=== PATIENT | female | born 1950 ===

== ENCOUNTER 2018-08-22 11:21 | Inpatient (IN) | payer MEDICAID, OTHER ==
[2018-08-22] MEDS ORDERED: Sodium Chloride 0.9% 1,000 ML IV ONE (13:44)
[2018-08-22] MEDS ORDERED: Albuterol-Ipratrop 3 mg / 0.5 (3 ml) UD INH STA ×2 (13:45→17:20)
[2018-08-22] MEDS ORDERED: Sodium Chloride 0.9% 1,000 ML ONE (14:03)
[2018-08-22] MEDS ORDERED: Albuterol-Ipratrop 3 mg / 0.5 (3 ml) UD ONE ×2 (14:05→18:03)
--- NOTE | 2018-08-22 14:25 | RAD ---
Date of service: 08/22/2018 HISTORY: SOB COMPARISON: No prior. TECHNIQUE: Chest PA and lateral FINDINGS: LUNGS: Extensive bilateral heterogeneous pulmonary infiltrate, predominantly upper right and throughout left lung. Likely infectious. PLEURA: Small to moderate left pleural effusion. No right pleural effusion. No pneumothorax. CARDIOVASCULAR: No aortic atherosclerotic calcification present. Heart suboptimally evaluated due to markedly oblique positioning. Grossly normal size. OSSEOUS STRUCTURES: No significant abnormalities. VISUALIZED UPPER ABDOMEN: Normal. OTHER FINDINGS: None. IMPRESSION: Extensive bilateral pulmonary infiltrate. Likely bilateral pneumonia. Small moderate left pleural effusion.
[2018-08-22 14:32] LABS: BASO # 0.1 K/uL (0.0-0.2); BASO % 0.6 % (0.0-2.0); EOS # 0.1 K/uL (0.0-0.7); EOS % 1.1 % (0.0-4.0); LYMPH # 1.7 K/uL (1.0-4.3); LYMPH % 15.5 % (20.0-40.0); MEAN CELL VOLUME 77.9 fL (81.0-99.0); MEAN CORPUSCULAR HEMOGLOBIN 25.5 pg (27.0-31.0); MEAN CORPUSCULAR HGB CONC 32.8 g/dL (33.0-37.0); MEAN PLATELET VOLUME 9.9 fL (7.2-11.7); MONO # 0.9 K/uL (0.0-0.8); MONO % 8.3 % (0.0-10.0); NEUT # 8.2 K/uL (1.8-7.0); NEUT % 74.5 % (50.0-75.0); NRBC % 0.1 % (0.0-2.0); RBC 5.14 Mil/uL (3.80-5.20); RED CELL DISTRIBUTION WIDTH 14.9 % (11.5-14.5)
[2018-08-22 14:33] LABS: HEMOGLOBIN 13.1 g/dL (11.0-16.0)
[2018-08-22 14:37] LABS: INR 1.1; PROTHROMBIN TIME 12.4 SECONDS (9.7-12.2)
[2018-08-22 14:51] LABS: ALB/GLOB RATIO 0.9 (1.0-2.1); ALBUMIN 3.7 g/dL (3.5-5.0); AST/SGOT 27 U/L (14-36); BLOOD UREA NITROGEN 9 mg/dL (7-17); CALCIUM 9.7 mg/dl (8.6-10.4); GFR NON-AFRICAN AMERICAN > 60
[2018-08-22 14:57] LABS: B-TYPE NATRIURETIC PEPTIDE 1220 pg/mL (0-900)
[2018-08-22 15:04] LABS: ALT/SGPT 10 U/L (9-52)
[2018-08-22] MEDS ORDERED: cefTRIAXone IV 1 gm in Dextros 50 ML IV ONE (15:11)
[2018-08-22] MEDS ORDERED: Azithromycin 500 MG in Sodium Chloride 0.9% 250 ML IVPB STA (15:12)
--- NOTE | 2018-08-22 15:24 | C.PDOC ---
History Of Present Illness 68 year old female presents to the emergency department with complaints of cough, wheezing, and shortness of breath since last week. Patient has a history of asthma and states that she has never smoked cigarettes in her life. Patient was encouraged by her family to present to the ED for evaluation today. Time Seen by Provider: 08/22/18 13:39 Chief Complaint (Nursing): Shortness Of Breath History Per: Patient History/Exam Limitations: no limitations Onset/Duration Of Symptoms: Other (1 week) Current Symptoms Are (Timing): Still Present Associated Symptoms: Other (cough, wheezing, shortness of breath). denies: Fever Past Medical History Reviewed: Historical Data, Nursing Documentation, Vital Signs Vital Signs: Last Vital Signs Temp 98.6 F 08/22/18 14:08 Pulse 123 H 08/22/18 14:08 Resp 32 H 08/22/18 14:08 BP 137/83 08/22/18 14:08 Pulse Ox 100 08/22/18 14:08 - Medical History PMH: Asthma Denies: Chronic Kidney Disease Surgical History: No Surg Hx Family History: States: No Known Family Hx - Social History Hx Alcohol Use: No Hx Substance Use: No Review Of Systems Except As Marked, All Systems Reviewed And Found Negative. Constitutional: Positive for: Other (significant, unintentional weight loss). Negative for: Fever, Chills Respiratory: Positive for: Cough, Shortness of Breath, Wheezing Gastrointestinal: Positive for: Other (poor appetite). Negative for: Nausea, Vomiting, Abdominal Pain, Diarrhea Physical Exam - Physical Exam Appears: Non-toxic, No Acute Distress, Other (thin, skeletal) Skin: Normal Color, Warm, Dry Head: Atraumatic, Other (bitemporal wasting) Eye(s): bilateral: Normal Inspection, PERRL, EOMI Nose: Normal Oral Mucosa: Moist Neck: Normal, Supple Cardiovascular: Rhythm Regular, No Murmur, No JVD Respiratory: No Rales, Rhonchi (scattered rhonchi), Wheezing (left greater than right) Gastrointestinal/Abdominal: Soft, No Tenderness, No Guarding, No Rebound, Other (scaphoid abdomen) Extremity: Normal ROM, No Tenderness, Other (thin) Neurological/Psych: Oriented x3, Normal Speech, Normal Cognition ED Course And Treatment - Laboratory Results Result Diagrams: 08/22/18 14:23 08/22/18 14:23 Lab Results: PT 12.4 SECONDS (9.7-12.2) H 08/22/18 14:23 INR 1.1 08/22/18 14:23 APTT 30 SECONDS (21-34) 08/22/18 14:23 D-Dimer, Quantitative 993 ng/mlDDU (0-243) H 08/22/18 14:23 Troponin I < 0.0120 ng/mL (0.00-0.120) 08/22/18 14:23 NT-Pro-B Natriuret Pep 1220 pg/mL (0-900) H 08/22/18 14:23 Total Bilirubin 0.2 mg/dL (0.2-1.3) 08/22/18 14:23 AST 27 U/L (14-36) 08/22/18 14:23 ALT 10 U/L (9-52) 08/22/18 14:23 Alkaline Phosphatase 119 U/L (38-126) 08/22/18 14:23 Total Protein 8.0 g/dL (6.3-8.3) 08/22/18 14:23 Albumin 3.7 g/dL (3.5-5.0) 08/22/18 14:23 Globulin 4.3 gm/dL (2.2-3.9) H 08/22/18 14:23 Albumin/Globulin Ratio 0.9 (1.0-2.1) L 08/22/18 14:23 Lab Interpretation: Abnormal (trop neg. d-dimer 993 H, bnp +) ECG: Interpreted By Me, Viewed By Me ECG Interpretation: Abnormal Interpretation Of ECG: Sinus tachycardia at 127bpm, nonspecific T-wave abnormality. O2 Sat by Pulse Oximetry: 100 (RA) Pulse Ox Interpretation: Normal - Radiology CXR: Interpreted by Me CXR Interpretation: Yes: Other (+ multifocal PNA/L pleural effusion) - Other Rad CXR X-Ray: Viewed By Me, Read By Radiologist Interpretation: IMPRESSION: Extensive bilateral pulmonary infiltrate. Likely bilateral pneumonia. Small moderate left pleural effusion. - CT Scan/US CT Chest Other Rad Studies (CT/US): Read By Radiologist, Radiology Report Reviewed CT/US Interpretation: IMPRESSION: Very limited study as detailed above. There are areas of dense consolidation/atelectasis in the left lung base which has progressed since the prior study of 03/01/2016. There appear to be extensive cystic changes seen throughout the left lung and less so the right upper lobe possibly representing cystic bronchiectasis. Additionally, there additionally, there also appears to be a left-sided effusion possibly with some loculated components. Questionable mucous plugging changes or compressive effects on the proximal branches of the left upper and lower lobe of bronchi. Mild fatty hepatic infiltration. Gastric wall thickening likely in part due to incomplete distention however gastritis or other intrinsic/invasive wall lesion not excluded. Markedly distended urinary bladder; rule out urinary retention. Reevaluation Time: 17:22 Reassessment Condition: Improved - Physician Consult Information Outcome Of Conversation: 1720: d/w Dr. Mckay- Hospitalist Mission Analyst- ok to adm to Hospitalists Medical Decision Making Medical Decision Making: Plan: Chest CT EKG Chemistry Hematology CXR Albuterol 6ml INH Solu-Medrol 125mg IVP NaCl IV Fluids Zithromax 500mg IV Rocephin IV Blood Culture Influenza Serology Xanax PO pna/L pleural effusion probably NOT metastatic dz, as CT abd/pelvis show no pathology non-smoker so severe bronchiectasis and cystic disease of ? etiology, consider other insulting factors. tx as CAP as pt from home consider drainage of ?/partially L pleural effusion Disposition Doctor Will See Patient In The: Hospital Counseled Patient/Family Regarding: Studies Performed, Diagnosis - Disposition Disposition: HOSPITALIZED Disposition Time: 17:24 Condition: GOOD Forms: [facility] (Frisian) - Clinical Impression Clinical Impression: Pneumonia, Pleural effusion - Scribe Statement The provider has reviewed the documentation as recorded by the Tonoibe (Odell Najera) Provider Attestation: All medical record entries made by the Tonoibronda were at my direction and personally dictated by me. I have reviewed the chart and agree that the record accurately reflects my personal performance of the history, physical exam, medical decision making, and the department course for this patient. I have also personally directed, reviewed, and agree with the discharge instructions and disposition.
[2018-08-22] MEDS ORDERED: Iodixanol 320 MG/ML 100 ML BOTTLE IV ONE (15:32)
[2018-08-22] MEDS ORDERED: Azithromycin 500mg/250ML NS 500 MG/250 ML BAG IVPB ONE (16:46)
--- NOTE | 2018-08-22 17:04 | CT ---
Date of service: 08/22/2018 PROCEDURE: CT Chest, Abdomen and Pelvis with intravenous contrast HISTORY: Questionable lung metastatic disease,? Lung/abd primary COMPARISON: Nory in made with chest radiograph obtained earlier same day and prior CT scan of the chest dated 03/01/2016. TECHNIQUE: IV dose administered: Radiation dose: Total exam DLP = 277.25 mGy-cm. This CT exam was performed using one or more of the following dose reduction techniques: Automated exposure control, adjustment of the mA and/or kV according to patient size, and/or use of iterative reconstruction technique. FINDINGS: This study is limited by motion artifact. Study is also further limited by the lack of oral contrast material and paucity of intraperitoneal and retroperitoneal fat CT CHEST WITH CONTRAST: LUNGS: There are areas of dense consolidation/atelectasis in the left lung base which has progressed since the prior study of 03/01/2016. There appear to be extensive cystic changes seen throughout the left lung and less so the right upper lobe possibly representing cystic bronchiectasis. Additionally, there additionally, there also appears to be a left-sided effusion possibly with some loculated components. MEDIASTINUM: There appears to be left-sided mediastinal shift . Heart is enlarged.. At ascending thoracic aorta measures approximately 2.8 cm and descending thoracic aorta measures approximately pulmonary trunk measures approximately 2.4 cm. LYMPH NODES: Evaluation for hilar adenopathy is limited due to significant adjacent consolidation changes.. Trachea is patent with no large central endoluminal lesions. Questionable mucous plugging changes or compressive effects on the proximal branches of the left upper and lower lobe of bronchi PLEURA: As above. No evidence of pneumothorax BONES: Unremarkable. OTHER FINDINGS: None. CT ABDOMEN AND PELVIS: Study is quite limited due to motion artifact. Study is also further limited by the lack of oral contrast material and paucity of intraperitoneal and retroperitoneal fat LIVER: Liver exhibits relatively normal size measuring nearly 16 cm in CC dimension. Mild diffuse fatty hepatic infiltration. No obvious hepatic masses or collections. Portal vein and splenic veins are poorly delineated. GALLBLADDER AND BILE DUCTS: No obvious intraluminal gallbladder calculi far as can be seen. PANCREAS: Pancreas is poorly delineated due to the lack of oral contrast material as well as motion artifact which predominantly affects adjacent loops of bowel SPLEEN: Spleen exhibits normal size and attenuation pattern without mass collection or calcification.. ADRENALS: The adrenal glands are poorly delineated however no large adrenal masses are identified KIDNEYS AND URETERS: Kidneys demonstrate relatively symmetric nephrograms. No evidence of nephrolithiasis or hydronephrosis. VASCULATURE: No aortic atherosclerotic calcification or mural plaque present. Unremarkable. No aortic aneurysm. BOWEL: Evaluation of the bowel is limited due to significant motion artifact as well as the lack of oral contrast material. Stomach is incompletely distended with thick-walled appearance; rule out gastritis or other intrinsic/invasive wall lesion. Visualized loops of small bowel exhibit normal contour and caliber without evidence of acute mechanical bowel obstruction so far as can be seen. Stool and air seen throughout the large bowel. APPENDIX: Appendix is not positively identified. PERITONEUM: Unremarkable. No free fluid. No free air. LYMPH NODES: Unremarkable. No enlarged lymph nodes. BLADDER: Urinary bladder is markedly distended. No evidence of intraluminal urinary bladder calculi. REPRODUCTIVE: Unremarkable as visualized. BONES: No acute fracture. OTHER FINDINGS: None. IMPRESSION: Very limited study as detailed above. There are areas of dense consolidation/atelectasis in the left lung base which has progressed since the prior study of 03/01/2016. There appear to be extensive cystic changes seen throughout the left lung and less so the right upper lobe possibly representing cystic bronchiectasis. Additionally, there additionally, there also appears to be a left-sided effusion possibly with some loculated components. Questionable mucous plugging changes or compressive effects on the proximal branches of the left upper and lower lobe of bronchi Mild fatty hepatic infiltration. Gastric wall thickening likely in part due to incomplete distention however gastritis or other intrinsic/invasive wall lesion not excluded. Markedly distended urinary bladder; rule out urinary retention.
[2018-08-22] MEDS ORDERED: Piperacillin/Tazobact 3.375 gm 100 ML IVPB ONE (19:32)
[2018-08-22 19:34] LABS: ABG ALLEN TEST POS; ARTERIAL BLOOD GAS HCO3 23.4 mmol/L (21-28); ARTERIAL BLOOD GAS HEMOGLOBIN 12.4 g/dL (11.7-17.4); ARTERIAL BLOOD GAS O2 SAT 99.7 % (95-98); ARTERIAL BLOOD GAS PCO2 35 mm/Hg (35-45); ARTERIAL BLOOD GAS PH 7.41 (7.35-7.45); ARTERIAL BLOOD GAS PO2 120 mm/Hg (80-100); ARTERIAL BLOOD GAS TCO2 23.3 mmol/L (22-28)
[2018-08-22] MEDS: Piperacillin/Tazobact 3.375 GM in Sodium Chloride 100 ML IVPB SCH (19:46)
--- NOTE | 2018-08-22 20:16 | CP.PCM.HP ---
<Italia Guevara - Last Filed: 08/22/18 21:05> History of Present Illness - History of Present Illness History of Present Illness: cc: cough with weakness 68 year old F with PMH asthma presents for 1 months of worsening cough and weakness. She was admitted for pneumonia 2 years ago and has not seen a doctor since that visit. Over the last month, she has been producing more and more yellow phlegm, up to a few tablespoons each hour. She has also noticed a 30lb weight loss over the last 2 months, coordinating with loss of appetite. Denies pain, headache, palpitations, difficulty urinating, difficulty breathing, dysnpea. PMHx- Asthma PSHx- c/s x1 Fam Hx- Sister with DM and cardiac bypass surgery; Brother with MN Social hx- denies ever tobacco, alcohol, or illicit drug use Meds- denies Allergies- Nyquil and Advil PMD- None currently Full Code Present on Admission - Present on Admission Any Indicators Present on Admission: No Review of Systems - Constitutional Constitutional: Anorexia, Fatigue, Lethargy, Malaise, Weight Loss, Weakness. absent: Chills, Fever, Headache, Night Sweats - EENT Eyes: absent: Blurred Vision, Diplopia Ears: absent: Decreased Hearing, Tinnitus Nose/Mouth/Throat: absent: Nasal Discharge, Nose Pain, Dysphagia - Cardiovascular Cardiovascular: absent: Chest Pain, Dyspnea, Edema, Palpitations, Syncope - Respiratory Respiratory: Cough, Dyspnea on Exertion, Excessive Mucous Production. absent: Dyspnea, Hemoptysis, Wheezing, Chest Congestion, Change in Mucous Color - Gastrointestinal Gastrointestinal: absent: Abdominal Pain, Constipation, Diarrhea, Nausea, Vomiting - Genitourinary Genitourinary: absent: Change in Urinary Stream, Difficulty Urinating, Dysuria - Musculoskeletal Musculoskeletal: Abnormal Gait. absent: Arthralgias, Numbness, Tingling - Integumentary Integumentary: Dry Skin. absent: Skin Ulcer, Swelling - Neurological Neurological: absent: Headaches, Syncope, Tremor - Psychiatric Psychiatric: Depression. absent: Confusion - Hematologic/Lymphatic Hematologic: absent: Easy Bleeding, Easy Bruising Past Patient History - Past Medical History & Family History Past Medical History?: Yes - Past Social History Smoking Status: Never Smoked Alcohol: None Drugs: Denies - CARDIAC Hx Cardiac Disorders: No - PULMONARY Hx Asthma: Yes - NEUROLOGICAL Hx Neurological Disorder: No - HEENT Hx HEENT Problems: No - RENAL Hx Chronic Kidney Disease: No - ENDOCRINE/METABOLIC Hx Endocrine Disorders: No - HEMATOLOGICAL/ONCOLOGICAL Hx Blood Disorders: No - INTEGUMENTARY Hx Dermatological Problems: No - MUSCULOSKELETAL/RHEUMATOLOGICAL Hx Musculoskeletal Disorders: No Hx Falls: No - GASTROINTESTINAL Hx Gastrointestinal Disorders: No - GENITOURINARY/GYNECOLOGICAL Hx Genitourinary Disorders: No - PSYCHIATRIC Hx Substance Use: No - SURGICAL HISTORY Hx Surgeries: Yes Hx Section: Yes - ANESTHESIA Hx Anesthesia: Yes Hx Anesthesia Reactions: No Hx Malignant Hyperthermia: No Meds Allergies/Adverse Reactions: Allergies Allergy/AdvReac Type Severity Reaction Status Date / Time acetaminophen [From NyQuil] Allergy Verified 08/22/18 12:02 dextromethorphan HBr Allergy Verified 08/22/18 12:02 [From NyQuil] doxylamine succinate Allergy Verified 08/22/18 12:02 [From NyQuil] ibuprofen [From Advil] Allergy Verified 08/22/18 12:02 pseudoephedrine HCl Allergy Verified 08/22/18 12:02 [From NyQuil] Physical Exam - Constitutional Appears: No Acute Distress, Cachectic, Chronically Ill - Head Exam Head Exam: ATRAUMATIC, NORMOCEPHALIC - Eye Exam Eye Exam: EOMI, PERRL - ENT Exam ENT Exam: Mucous Membranes Dry - Neck Exam Neck exam: Negative for: Lymphadenopathy - Respiratory Exam Respiratory Exam: Rales, Rhonchi, NORMAL BREATHING PATTERN. absent: Wheezes Additional comments: diffuse crackles - Cardiovascular Exam Cardiovascular Exam: REGULAR RHYTHM, +S1, +S2 - GI/Abdominal Exam GI & Abdominal Exam: Normal Bowel Sounds, Soft. absent: Guarding, Tenderness - Extremities Exam Extremities exam: Positive for: normal capillary refill, pedal pulses present - Back Exam Back exam: absent: CVA tenderness (L), CVA tenderness (R) - Neurological Exam Neurological exam: Alert, CN II-XII Intact, Oriented x3, Reflexes Normal - Psychiatric Exam Psychiatric exam: Depressed - Skin Skin Exam: Dry, Intact, Normal Color Results - Vital Signs Recent Vital Signs: Last Vital Signs Temp 99.1 F 08/22/18 19:07 Pulse 130 H 08/22/18 18:23 Resp 22 08/22/18 18:23 BP 123/77 08/22/18 18:23 Pulse Ox 100 08/22/18 18:23 - Labs Result Diagrams: 08/22/18 14:23 08/22/18 14:23 Labs: Laboratory Results - last 24 hr 08/22/18 08/22/18 08/22/18 14:23 14:23 14:23 WBC 11.0 H RBC 5.14 Hgb 13.1 D Hct 40.0 MCV 77.9 L MCH 25.5 L MCHC 32.8 L RDW 14.9 H Plt Count 375 MPV 9.9 Neut % (Auto) 74.5 Lymph % (Auto) 15.5 L Preston % (Auto) 8.3 Eos % (Auto) 1.1 Baso % (Auto) 0.6 Neut # (Auto) 8.2 H Lymph # (Auto) 1.7 Preston # (Auto) 0.9 H Eos # (Auto) 0.1 Baso # (Auto) 0.1 PT 12.4 H INR 1.1 APTT 30 D-Dimer, Quantitative 993 H Puncture Site pCO2 pO2 HCO3 ABG pH ABG Total CO2 ABG O2 Saturation ABG Base Excess ABG Hemoglobin ABG Carboxyhemoglobin POC ABG HHb (Measured) ABG Methemoglobin Jose Test A-a O2 Difference Respiratory Index Hgb O2 Saturation FiO2 Sodium Potassium Chloride Carbon Dioxide Anion Gap BUN Creatinine Est GFR ( Amer) Est GFR (Non-Af Amer) Random Glucose Calcium Total Bilirubin AST ALT Alkaline Phosphatase Troponin I NT-Pro-B Natriuret Pep Total Protein Albumin Globulin Albumin/Globulin Ratio Influenza Typ A,B (EIA) Negative for flu a/b 08/22/18 08/22/18 14:23 19:25 WBC RBC Hgb Hct MCV MCH MCHC RDW Plt Count MPV Neut % (Auto) Lymph % (Auto) Preston % (Auto) Eos % (Auto) Baso % (Auto) Neut # (Auto) Lymph # (Auto) Preston # (Auto) Eos # (Auto) Baso # (Auto) PT INR APTT D-Dimer, Quantitative Puncture Site Rba pCO2 35 pO2 120 H HCO3 23.4 ABG pH 7.41 ABG Total CO2 23.3 ABG O2 Saturation 99.7 H ABG Base Excess -1.9 ABG Hemoglobin 12.4 ABG Carboxyhemoglobin 2.1 H POC ABG HHb (Measured) 0.3 ABG Methemoglobin 1.4 Jose Test Pos A-a O2 Difference 72.0 Respiratory Index 0.6 Hgb O2 Saturation 96.2 FiO2 33.0 Sodium 134 Potassium 4.5 Chloride 97 L Carbon Dioxide 29 Anion Gap 13 BUN 9 Creatinine 0.7 Est GFR ( Amer) > 60 Est GFR (Non-Af Amer) > 60 Random Glucose 114 H D Calcium 9.7 Total Bilirubin 0.2 AST 27 ALT 10 Alkaline Phosphatase 119 Troponin I < 0.0120 NT-Pro-B Natriuret Pep 1220 H Total Protein 8.0 Albumin 3.7 Globulin 4.3 H Albumin/Globulin Ratio 0.9 L Influenza Typ A,B (EIA) Assessment & Plan - Assessment and Plan (Free Text) Assessment: 68yo F with PMH asthma admitted for cystic bronchiectasis. Plan: Cystic Bronchiectasis Bilateral Pneumonia, L pleural effusion mild Leukocytosis CXR (08/22): extensive bilateral pulmonary infiltrate. likely bilateral pneumonia. small moderate left pleural effusion. CT Chest A/P (08/22): cystic bronchiectasis with L sided effusion, mild fatty hepatic infiltration, gastric wall thickening, distended urinary bladder Influenza negative Azithro and Ceftriaxone given in ED - f/u ABG - f/u Vit B12, Folate, Hgb A1c, TSH - r/o Aspergillus, TB (quantiferon) - f/u AFB x3 - f/u Blood Cx - f/u Sputum Cx - Duonebs INH rQ4 - Solumedrol 40mg IVP BID - Zosyn 3.375gm IVPB q6 (started 08/22) - Vancomycin 750mg IVPB q12 (started 08/22) - O2 via NC prn - ID consulted: Dr. Land - Pulm consulted: Dr. Bashir for possible bronchoscopy [place] 30lb weight loss in 2 months - Diet consult PPx - DVT: Heparin 5000u SC q8 - GI: Protonix 20mg po daily - Diet: HHD, MVI - PT/OT - Palliative Care consulted: [facility] Isolation d/w Dr. Erin Guevara PYG-1 - Date & Time Date: 08/22/18 Time: 19:00 <Ángel Khan - Last Filed: 08/24/18 17:35> Results - Vital Signs Recent Vital Signs: Last Vital Signs Temp 97.7 F 08/24/18 15:00 Pulse 102 H 08/24/18 15:00 Resp 18 08/24/18 15:00 BP 132/81 08/24/18 15:00 Pulse Ox 97 08/24/18 15:00 - Labs Result Diagrams: 08/24/18 07:35 08/24/18 07:35 Labs: Laboratory Results - last 24 hr 08/24/18 08/24/18 08/24/18 07:35 07:35 07:35 WBC 16.6 H RBC 4.84 Hgb 12.4 Hct 38.1 MCV 78.7 L MCH 25.7 L MCHC 32.6 L RDW 15.4 H Plt Count 363 MPV 9.9 Neut % (Auto) 86.9 H Lymph % (Auto) 8.2 L Preston % (Auto) 4.8 Eos % (Auto) 0.0 Baso % (Auto) 0.1 Neut # (Auto) 14.4 H Lymph # (Auto) 1.4 Preston # (Auto) 0.8 Eos # (Auto) 0.0 Baso # (Auto) 0.0 Neutrophils % (Manual) 89 H Lymphocytes % (Manual) 6 L Monocytes % (Manual) 5 Platelet Estimate Normal Sodium 137 Potassium 4.3 Chloride 100 Carbon Dioxide 28 Anion Gap 13 BUN 12 Creatinine 0.8 Est GFR ( Amer) > 60 Est GFR (Non-Af Amer) > 60 Random Glucose 191 H D Calcium 9.8 Total Bilirubin 0.2 AST 31 ALT < 6 L Alkaline Phosphatase 107 Total Protein 7.6 Albumin 3.7 Globulin 3.9 Albumin/Globulin Ratio 0.9 L Free T4 Hepatitis A IgM Ab Negative Hep Bs Antigen Negative Hep B Core IgM Ab Negative Hepatitis C Antibody Negative HIV 1&2 Antibody Screen 08/24/18 08/24/18 07:35 10:29 WBC RBC Hgb Hct MCV MCH MCHC RDW Plt Count MPV Neut % (Auto) Lymph % (Auto) Preston % (Auto) Eos % (Auto) Baso % (Auto) Neut # (Auto) Lymph # (Auto) Preston # (Auto) Eos # (Auto) Baso # (Auto) Neutrophils % (Manual) Lymphocytes % (Manual) Monocytes % (Manual) Platelet Estimate Sodium Potassium Chloride Carbon Dioxide Anion Gap BUN Creatinine Est GFR ( Amer) Est GFR (Non-Af Amer) Random Glucose Calcium Total Bilirubin AST ALT Alkaline Phosphatase Total Protein Albumin Globulin Albumin/Globulin Ratio Free T4 1.94 Hepatitis A IgM Ab Hep Bs Antigen Hep B Core IgM Ab Hepatitis C Antibody HIV 1&2 Antibody Screen Negative Attending/Attestation - Attestation I have personally seen and examined this patient.: Yes I have fully participated in the care of the patient.: Yes I have reviewed all pertinent clinical information: Yes Notes (Text): seen and examined by me 1.Severe bilateral bronchiectasis,productive cough and pneumonia 2.Cachexia advance directive s discussed with the patient and her son. full code. patient doesn't like to stay on the hospital as per her son Explained about the severity of her illness
[2018-08-23] MEDS: Piperacillin/Tazobact 3.375 GM in Sodium Chloride 100 ML IVPB SCH ×4 (01:17→17:50)
[2018-08-23 07:29] LABS: BASO % 0.1 % (0.0-2.0); LYMPH # 1.2 K/uL (1.0-4.3); LYMPH % 9.2 % (20.0-40.0); MEAN CELL VOLUME 77.7 fL (81.0-99.0); MEAN CORPUSCULAR HEMOGLOBIN 25.2 pg (27.0-31.0); MEAN CORPUSCULAR HGB CONC 32.4 g/dL (33.0-37.0); MEAN PLATELET VOLUME 9.5 fL (7.2-11.7); MONO # 1.1 K/uL (0.0-0.8); MONO % 8.4 % (0.0-10.0); NEUT # 10.6 K/uL (1.8-7.0); NEUT % 82.3 % (50.0-75.0); PLATELET COUNT 326 K/uL (130-400); RBC 4.37 Mil/uL (3.80-5.20); RED CELL DISTRIBUTION WIDTH 15.4 % (11.5-14.5); WHITE BLOOD COUNT 12.9 K/uL (4.8-10.8)
[2018-08-23 08:11] LABS: ALB/GLOB RATIO 0.9 (1.0-2.1); ALBUMIN 3.4 g/dL (3.5-5.0); ALT/SGPT < 6 U/L (9-52); AST/SGOT 22 U/L (14-36); BLOOD UREA NITROGEN 9 mg/dL (7-17); CALCIUM 9.5 mg/dl (8.6-10.4); GFR NON-AFRICAN AMERICAN > 60
[2018-08-23 09:00] LABS: FOLATE 18.4 ng/mL
--- NOTE | 2018-08-23 09:22 | CP.PCM.PN ---
<Lester Rooney - Last Filed: 08/23/18 17:55> Subjective - Date & Time of Evaluation Date of Evaluation: 08/23/18 Time of Evaluation: 12:00 - Subjective Subjective: Medicine progress not for Dr. Sergio Montero Wolof translation: Trudy #[id number] Pt seen and examined at bedside. Pt is resting comfortably. She reports that her cough is nonproductive, and improved since admission. She reports that she has an appetite and has been eating the food, despite not liking it. Denies fever, chills, chest pain, sob, abdominal pain, n/v/d, hematochezia, melena, hemoptysis, hematemasis, any signs of bleeding. Denies any other hospitali zations except for pneumonia 2 years ago. Reports only a history of asthma. No history of cancers in the family, and denies smoking history. Pt is ambulating in the room without problems. Objective - Vital Signs/Intake and Output Vital Signs (last 24 hours): Temp Pulse Resp BP Pulse Ox 97.8 F 99 H 20 133/79 95 08/23/18 08:01 08/23/18 08:01 08/23/18 08:01 08/23/18 08:01 08/23/18 08:01 - Medications Medications: Current Medications Albuterol/Ipratropium (Duoneb 3 Mg/0.5 Mg (3 Ml) Ud) 3 ml INH RQ4 PRN PRN Reason: Shortness of Breath Heparin Sodium (Porcine) (Heparin) 5,000 units SC Q8 TANA Piperacillin Sod/Tazobactam (Sod 3.375 gm/ Sodium Chloride) 100 mls @ 200 mls/hr IVPB Q6H TANA; Protocol Last Admin: 08/23/18 05:50 Dose: 200 mls/hr Vancomycin HCl 750 mg/ Sodium (Chloride) 250 mls @ 166.6 mls/hr IVPB Q12H TANA; Protocol Last Admin: 08/23/18 06:21 Dose: 166.6 mls/hr Methylprednisolone (Solu-Medrol) 40 mg IVP BID [facility] Multivitamins (Hexavitamin) 1 tab PO DAILY TANA Pantoprazole Sodium (Protonix Ec Tab) 20 mg PO DAILY TANA - Labs Labs: 08/23/18 07:14 08/23/18 07:14 PT 12.4 SECONDS (9.7-12.2) H 08/22/18 14:23 INR 1.1 08/22/18 14:23 APTT 30 SECONDS (21-34) 08/22/18 14:23 - Constitutional Appears: Non-toxic, No Acute Distress, Cachectic - Head Exam Head Exam: ATRAUMATIC, NORMAL INSPECTION - Eye Exam Eye Exam: EOMI, Normal appearance - ENT Exam ENT Exam: Mucous Membranes Moist - Respiratory Exam Respiratory Exam: Rales (bilaterally), Rhonchi (bilaterally), NORMAL BREATHING PATTERN. absent: Wheezes, Respiratory Distress, Stridor - Cardiovascular Exam Cardiovascular Exam: REGULAR RHYTHM, +S1, +S2. absent: Tachycardia - GI/Abdominal Exam GI & Abdominal Exam: Soft, Normal Bowel Sounds. absent: Distended, Firm, Guarding, Rigid, Tenderness, Organomegaly - Extremities Exam Extremities Exam: Normal Inspection. absent: Calf Tenderness - Back Exam Back Exam: NORMAL INSPECTION. absent: CVA tenderness (L), CVA tenderness (R) - Neurological Exam Neurological Exam: Alert, Awake - Psychiatric Exam Psychiatric exam: Normal Affect, Normal Mood - Skin Skin Exam: Dry, Normal Color, Warm Assessment and Plan - Assessment and Plan (Free Text) Assessment: 68yo F with PMH asthma admitted for cystic bronchiectasis. Plan: Cystic Bronchiectasis Bilateral Pneumonia, L pleural effusion - CXR (08/22): extensive bilateral pulmonary infiltrate. likely bilateral pneumonia. small moderate left pleural effusion. - CT Chest A/P (08/22): cystic bronchiectasis with L sided effusion, mild fatty hepatic infiltration, gastric wall thickening, distended urinary bladder - Leukocytosis increased from 11.0 to 12.9, likely due to CCS treatment. Pt afebrile during hospitalization - ABG on admission is normal - Influenza negative - r/o Aspergillus, TB (quantiferon) - f/u AFB x3 - F/u HIV, Hepatitis panel, strep pneumon, legionella, mycoplasma pneumoniae, Alpha-1 antitrypsin level, Sputum Cx - Duonebs INH rQ4 - Solumedrol 40mg IVP BID increased to Q8H - Zosyn 3.375gm IVPB q6 (started 08/22) - Vancomycin 750mg IVPB q12 (started 08/22) - O2 via NC prn - ID consulted: Dr. Land - Pulm consulted: Dr. Bashir CAT scan of the chest consistent with bilateral bronchiectasis with fibrosis Rule out HEMANT infection Fiberoptic bronchoscopy with biopsy and lavage possibly tomorrow (08/24) Continue isolation Nebulizer treatment and Mucomyst Broad-spectrum antibiotics - Blood culture x 2 negative for growth x 24 hours - airborne precautions D-dimer elevation - DDimer noted to be 993 in the ED - Pt's ABG was normal, satting well on room air, resolution of sob - F/u venous doppler studies in bilateral lower extremities. Hemoglobin change from 13.1 to 11.0 - Likely due to hemodilution as pt was dry on initial presentation and required fluids - No signs of bleeding at this time - Continue to monitor Cachectia 30lb weight loss in 2 months - Diet consult PPx - DVT: Heparin 5000u SC q8 - GI: Protonix 20mg po daily - Diet: HHD, MVI - PT/OT - Palliative Care consulted: Carol Ann Airborne Isolation Pt is full code. She reports that her sons will make decisions for her in case she is incapacitated. <Nikki Hill V - Last Filed: 08/24/18 03:31> Objective - Vital Signs/Intake and Output Vital Signs (last 24 hours): Temp Pulse Resp BP Pulse Ox 97.2 F L 125 H 20 160/95 H 100 08/23/18 23:00 08/24/18 00:56 08/23/18 23:00 08/23/18 23:00 08/23/18 23:00 Intake and Output: 08/23/18 08/24/18 18:59 06:59 Intake Total 300 Balance 300 - Medications Medications: Current Medications Acetylcysteine (Acetylcysteine 20%) 4 ml INH RQ6 TANA Last Admin: 08/24/18 01:46 Dose: Not Given Albuterol/Ipratropium (Duoneb 3 Mg/0.5 Mg (3 Ml) Ud) 3 ml INH RQ4 PRN PRN Reason: Shortness of Breath Heparin Sodium (Porcine) (Heparin) 5,000 units SC Q8 TANA Last Admin: 08/23/18 22:29 Dose: Not Given Piperacillin Sod/Tazobactam (Sod 3.375 gm/ Sodium Chloride) 100 mls @ 200 mls/hr IVPB Q6H TANA; Protocol Last Admin: 08/24/18 00:21 Dose: 200 mls/hr Vancomycin HCl 750 mg/ Sodium (Chloride) 250 mls @ 166.6 mls/hr IVPB Q12H TANA; Protocol Last Admin: 08/23/18 19:14 Dose: 166.6 mls/hr Methylprednisolone (Solu-Medrol) 40 mg IVP Q8 TANA Last Admin: 08/23/18 22:10 Dose: 40 mg Multivitamins (Hexavitamin) 1 tab PO DAILY TANA Last Admin: 08/23/18 10:58 Dose: 1 tab Pantoprazole Sodium (Protonix Ec Tab) 20 mg PO DAILY TANA Last Admin: 08/23/18 10:58 Dose: 20 mg - Labs Labs: 08/23/18 07:14 08/23/18 07:14 PT 12.4 SECONDS (9.7-12.2) H 08/22/18 14:23 INR 1.1 08/22/18 14:23 APTT 30 SECONDS (21-34) 08/22/18 14:23 Attending/Attestation - Attestation I have personally seen and examined this patient.: Yes I have fully participated in the care of the patient.: Yes I have reviewed all pertinent clinical information, including history, physical exam and plan: Yes Notes (Text): This is late computer entry for 08/23/18. patient seen, examined and case discussed with nuclear medical tech. Patient seen with her two sons at bedside. Assistance with translation by her [place] n[place]ian speaking nurse, Jyothi. Patient has had unintentional weight loss, shortness of breathe, and cough which she reports she is no longer coughing up secretions. I have explained to the patient she has severe bronchiectasis and she is recommended by pulm for bronchscopy. Patient is very anxious lady does not want to discuss testing reports we are making her anxious. Please note patient had refused prior workup in 2005 note. I did explain to her this will allow us to better treat her. Patient is on empiric iv antibiotics to cover. infectious disease on board. I did attempt code status discussion with her with her sons present given the severe bronchiectasis she has on CT chest, she does not want to entertain the discussion; but I did indicate to her it is important that we know her wishes and that if she needs time no one is pressing for answers as of this very moment, but this is something to think about in light of CT findings and weight loss. Endorsed patient to my colleague dr. fabian who resume coverage tomorrow.
[2018-08-23] MEDS: MethylPREDNISolone 40 mg Vial IVP SCH ×3 (10:48→22:10)
[2018-08-23] MEDS: Multiple Vitamins Tab PO SCH (10:58)
[2018-08-23] MEDS: Pantoprazole 20 mg EC Tab PO SCH (10:58)
[2018-08-23 11:09] LABS: BANDS 3 % (0-2); LYMPHOCYTE 7 % (20-40); MONOCYTE 7 % (0-10); NEUTROPHIL 83 % (50-75); PLATELET ESTIMATE NORMAL (NORMAL); TOTAL CELLS COUNTED 100
[2018-08-23 11:10] LABS: ANISOCYTOSIS SLIGHT; TARGET CELLS SLIGHT
--- NOTE | 2018-08-23 12:18 | CP.PCM.CON ---
History of Present Illness - History of Present Illness History of Present Illness: examined at bedside chart reviewed orders signed 68 year old female presents to the emergency department with complaints of cough, wheezing, and shortness of breath since last week. Patient has a history of asthma and states that she has never smoked cigarettes in her life. Imaging of chest shows chronic appearing bilateral infiltrates with bronchiectasis - Medical History PMH: Asthma Denies: Chronic Kidney Disease Review of Systems - Constitutional Constitutional: As Per HPI, Anorexia, Lethargy - EENT Eyes: absent: As Per HPI, Blind Spots, Blurred Vision, Change in Vision, Dec reased Night Vision, Diplopia, Discharge, Dry Eye, Exophthalmos, Floaters, Irritation, Itchy Eyes, Loss of Peripheral Vision, Pain, Photophobia, Requires Corrective Lenses, Sees Flashes, Spots in Vision, Tunnel Vision, Other Visual Disturbances, Loss of Vision, Other Ears: absent: As Per HPI, Decreased Hearing, Ear Discharge, Ear Pain, Tinnitus, Abnormal Hearing, Disequilibrium, Dizziness, Other Nose/Mouth/Throat: absent: As Per HPI, Epistaxis, Nasal Congestion, Nasal Discharge, Nasal Obstruction, Nasal Trauma, Nose Pain, Post Nasal Drip, Sinus Pain, Sinus Pressure, Bleeding Gums, Change in Voice, Dental Pain, Dry Mouth, Dysphagia, Halitosis, Hoarsness, Lip Swelling, Mouth Lesions, Mouth Pain, Odynophagia, Sore Throat, Throat Swelling, Tongue Swelling, Facial Pain, Neck Pain, Neck Mass, Other - Breasts Breasts: absent: As Per HPI, Change in Shape, Mass, Pain, Nipple Discharge, Nipple Inversion, Skin Changes, Swelling, Other - Cardiovascular Cardiovascular: As Per HPI - Respiratory Respiratory: As Per HPI, Cough, Dyspnea. absent: Hemoptysis - Gastrointestinal Gastrointestinal: absent: As Per HPI, Abdominal Pain, Belching, Bloating, Change in Bowel Habits, Change in Stool Character, Coffee Ground Emesis, Constipation, Cramping, Diarrhea, Dyspepsia, Dysphagia, Early Satiety, Excessive Flatus, Fecal Incontinence, Heartburn, Hematemesis, Hematochezia, Loose Stools, Melena, Na usea, Odynophagia, Temesmus, Vomiting, Other - Genitourinary Genitourinary: absent: As Per HPI, Change in Urinary Stream, Difficulty Urinating, Dysuria, Flank Pain, Hematuria, Pyuria, Nocturia, Urinary Incontinence, Urinary Frequency, Urinary Hesitance, Urinary Urgency, Voiding Freq/Small Amts, Freq UTI, Hx Renal/Bladder Calculi, Hx /Renal Surgery, Bladder Distension, Other - Reproductive: Female Reproductive:Female: absent: As Per HPI, Amenorrhea, Amenorrhea/ Control, Currently Menstual, Cycle <21 Days, Cycle >35 Days, Cycle Variable, Menses 1-7 Days, Menses >/= 8 Days, Menses Variable, Cycle > 4 Weeks Between, No Menses for 6 Months, Heavy Menses, Light Menses, Normal Menses, Spotting Between Cycles, S/P Hysterectomy, Menopausal, Post Menopausal, Premenarche, Abnormal Vaginal Bleeding, Dysmenorrhea, Dyspareunia, Genital Lesions, Genital Pruritis, Pelvic Pain, Prolapse Symptoms, Sexual Dysfunction, Vaginal Discharge, Vaginal Dryness, Vaginal Odor, Vaginal Pruritis, Other - Menstruation Menstruation: absent: As Per HPI, Amenorrhea, Amenorrhea/ Control, Cu rrently Menstual, Cycle <21 Days, Cycle >35 Days, Cycle Variable, Menses 1-7 Days, Menses >/= 8 Days, Menses Variable, Cycle > 4 Weeks Between, No Menses for 6 Months, Heavy Menses, Light Menses, Normal Menses, Spotting Between Cycles, S/P Hysterectomy, Menopausal, Post Menopausal, Premenarche, Abnormal Vaginal Bleeding, Dysmenorrhea, Other - Musculoskeletal Musculoskeletal: absent: As Per HPI, Abnormal Gait, Arthralgias, Atrophy, Back Pain, Deformity, Joint Swelling, Limited Range of Motion, Loss of Height, Muscle Cramps, Muscle Weakness, Myalgias, Neck Pain, Numbness, Radiating Pain into Limb, Stiffness, Tingling, Other - Integumentary Integumentary: absent: As Per HPI, Acne, Alopecia, Bleeding Lesions, Change in Hair, Change in Nails, Change in Pigmentation, Changing Lesions, Dry Skin, Erythema, Furuncle, Hirsutism, Lesions, New Lesions, Non-Healing Lesions, Photosensitivity, Pruritus, Rash, Skin Pain, Skin Ulcer, Sores, Striae, Swelling, Unusual Bruising, Wounds, Jaundice, Other - Psychiatric Psychiatric: absent: As Per HPI, Abnormal Sleep Pattern, Anhedonia, Anxiety, Auditory Hallucinations, Behavioral Changes, Change in Appetite, Change in Libido, Confusion, Depression, Difficulty Concentrating, Hallucinations, Homicidal Ideation, Hopelessness, Irritability, Memory Loss, Mood Swings, Panic Attacks, Paranoia, Suicidal Ideation, Visual Hallucinations, Tactile Hallucinations, Other - Endocrine Endocrine: absent: As Per HPI, Change in Body Appearance, Change in Libido, Cold Intolorance, Deepening of Voice, Excessive Sweating, Fatigue, Flushing, Heat Intolorance, Increase in Ring/Shoe/Hat Size, Palpitations, Polydipsia, Polyphagia, Polyuria, Other - Hematologic/Lymphatic Hematologic: absent: As Per HPI, Easy Bleeding, Easy Bruising, Lymphadenopathy, Other Past Patient History - Past Medical History & Family History Past Medical History?: Yes - Past Social History Smoking Status: Never Smoked - CARDIAC Hx Cardiac Disorders: No - PULMONARY Hx Asthma: Yes - NEUROLOGICAL Hx Neurological Disorder: No - HEENT Hx HEENT Problems: No - RENAL Hx Chronic Kidney Disease: No - ENDOCRINE/METABOLIC Hx Endocrine Disorders: No - HEMATOLOGICAL/ONCOLOGICAL Hx Blood Disorders: No - INTEGUMENTARY Hx Dermatological Problems: No - MUSCULOSKELETAL/RHEUMATOLOGICAL Hx Musculoskeletal Disorders: No Hx Falls: No - GASTROINTESTINAL Hx Gastrointestinal Disorders: No - GENITOURINARY/GYNECOLOGICAL Hx Genitourinary Disorders: No - PSYCHIATRIC Hx Substance Use: No - SURGICAL HISTORY Hx Surgeries: Yes Hx Section: Yes - ANESTHESIA Hx Anesthesia: Yes Hx Anesthesia Reactions: No Hx Malignant Hyperthermia: No Meds Allergies/Adverse Reactions: Allergies Allergy/AdvReac Type Severity Reaction Status Date / Time acetaminophen [From NyQuil] Allergy Verified 08/22/18 12:02 dextromethorphan HBr Allergy Verified 08/22/18 12:02 [From NyQuil] doxylamine succinate Allergy Verified 08/22/18 12:02 [From NyQuil] ibuprofen [From Advil] Allergy Verified 08/22/18 12:02 pseudoephedrine HCl Allergy Verified 08/22/18 12:02 [From NyQuil] - Medications Medications: Current Medications Albuterol/Ipratropium (Duoneb 3 Mg/0.5 Mg (3 Ml) Ud) 3 ml INH RQ4 PRN PRN Reason: Shortness of Breath Heparin Sodium (Porcine) (Heparin) 5,000 units SC Q8 TANA Piperacillin Sod/Tazobactam (Sod 3.375 gm/ Sodium Chloride) 100 mls @ 200 mls/hr IVPB Q6H TANA; Protocol Last Admin: 08/23/18 11:47 Dose: 200 mls/hr Vancomycin HCl 750 mg/ Sodium (Chloride) 250 mls @ 166.6 mls/hr IVPB Q12H TANA; Protocol Last Admin: 08/23/18 06:21 Dose: 166.6 mls/hr Methylprednisolone (Solu-Medrol) 40 mg IVP BID [facility] Last Admin: 08/23/18 10:48 Dose: 40 mg Multivitamins (Hexavitamin) 1 tab PO DAILY TANA Last Admin: 08/23/18 10:58 Dose: 1 tab Pantoprazole Sodium (Protonix Ec Tab) 20 mg PO DAILY TANA Last Admin: 08/23/18 10:58 Dose: 20 mg Physical Exam - Constitutional Appears: Non-toxic, No Acute Distress, Chronically Ill - Head Exam Head Exam: ATRAUMATIC, NORMAL INSPECTION, NORMOCEPHALIC - Eye Exam Eye Exam: EOMI, Normal appearance, PERRL Pupil Exam: NORMAL ACCOMODATION, PERRL - ENT Exam ENT Exam: Mucous Membranes Moist, Normal Exam - Neck Exam Neck exam: Positive for: Normal Inspection - Respiratory Exam Respiratory Exam: Decreased Breath Sounds, Clear to Auscultation Bilateral, Prolonged Expiratory Phase, Rales, Rhonchi - Cardiovascular Exam Cardiovascular Exam: REGULAR RHYTHM, +S1, +S2 - GI/Abdominal Exam GI & Abdominal Exam: Normal Bowel Sounds, Soft. absent: Tenderness - Rectal Exam Rectal Exam: Deferred - Exam Exam: NORMAL INSPECTION - Extremities Exam Extremities exam: Positive for: normal inspection - Back Exam Back exam: NORMAL INSPECTION - Neurological Exam Neurological exam: Alert, CN II-XII Intact, Normal Gait, Oriented x3, Reflexes Normal - Psychiatric Exam Psychiatric exam: Normal Affect, Normal Mood - Skin Skin Exam: Dry, Intact, Normal Color, Warm Results - Vital Signs Recent Vital Signs: Last Vital Signs Temp 97.8 F 08/23/18 08:01 Pulse 99 H 08/23/18 08:01 Resp 20 08/23/18 08:01 BP 133/79 08/23/18 08:01 Pulse Ox 95 08/23/18 08:01 - Labs Result Diagrams: 08/23/18 07:14 08/23/18 07:14 Labs: Laboratory Results - last 24 hr 08/22/18 08/22/18 08/22/18 14:23 14:23 14:23 WBC 11.0 H RBC 5.14 Hgb 13.1 D Hct 40.0 MCV 77.9 L MCH 25.5 L MCHC 32.8 L RDW 14.9 H Plt Count 375 MPV 9.9 Neut % (Auto) 74.5 Lymph % (Auto) 15.5 L [place] % (Auto) 8.3 Eos % (Auto) 1.1 Baso % (Auto) 0.6 Neut # (Auto) 8.2 H Lymph # (Auto) 1.7 [place] # (Auto) 0.9 H Eos # (Auto) 0.1 Baso # (Auto) 0.1 Neutrophils % (Manual) Band Neutrophils % Lymphocytes % (Manual) Monocytes % (Manual) Platelet Estimate Anisocytosis (manual) Target Cells PT 12.4 H INR 1.1 APTT 30 D-Dimer, Quantitative 993 H Puncture Site pCO2 pO2 HCO3 ABG pH ABG Total CO2 ABG O2 Saturation ABG Base Excess ABG Hemoglobin ABG Carboxyhemoglobin POC ABG HHb (Measured) ABG Methemoglobin Jose Test A-a O2 Difference Respiratory Index Hgb O2 Saturation FiO2 Sodium Potassium Chloride Carbon Dioxide Anion Gap BUN Creatinine Est GFR ( Amer) Est GFR (Non-Af Amer) Random Glucose Hemoglobin A1c Calcium Total Bilirubin AST ALT Alkaline Phosphatase Troponin I NT-Pro-B Natriuret Pep Total Protein Albumin Globulin Albumin/Globulin Ratio Vitamin B12 Folate TSH 3rd Generation Influenza Typ A,B (EIA) Negative for flu a/b 08/22/18 08/22/18 08/23/18 14:23 19:25 07:14 WBC RBC Hgb Hct MCV MCH MCHC RDW Plt Count MPV Neut % (Auto) Lymph % (Auto) [place] % (Auto) Eos % (Auto) Baso % (Auto) Neut # (Auto) Lymph # (Auto) [place] # (Auto) Eos # (Auto) Baso # (Auto) Neutrophils % (Manual) Band Neutrophils % Lymphocytes % (Manual) Monocytes % (Manual) Platelet Estimate Anisocytosis (manual) Target Cells PT INR APTT D-Dimer, Quantitative Puncture Site Rba pCO2 35 pO2 120 H HCO3 23.4 ABG pH 7.41 ABG Total CO2 23.3 ABG O2 Saturation 99.7 H ABG Base Excess -1.9 ABG Hemoglobin 12.4 ABG Carboxyhemoglobin 2.1 H POC ABG HHb (Measured) 0.3 ABG Methemoglobin 1.4 Jose Test Pos A-a O2 Difference 72.0 Respiratory Index 0.6 Hgb O2 Saturation 96.2 FiO2 33.0 Sodium 134 Potassium 4.5 Chloride 97 L Carbon Dioxide 29 Anion Gap 13 BUN 9 Creatinine 0.7 Est GFR ( Amer) > 60 Est GFR (Non-Af Amer) > 60 Random Glucose 114 H D Hemoglobin A1c 6.4 Calcium 9.7 Total Bilirubin 0.2 AST 27 ALT 10 Alkaline Phosphatase 119 Troponin I < 0.0120 NT-Pro-B Natriuret Pep 1220 H Total Protein 8.0 Albumin 3.7 Globulin 4.3 H Albumin/Globulin Ratio 0.9 L Vitamin B12 Folate TSH 3rd Generation Influenza Typ A,B (EIA) 08/23/18 08/23/18 07:14 07:14 WBC 12.9 H RBC 4.37 Hgb 11.0 D Hct 33.9 L MCV 77.7 L MCH 25.2 L MCHC 32.4 L RDW 15.4 H Plt Count 326 MPV 9.5 Neut % (Auto) 82.3 H Lymph % (Auto) 9.2 L [place] % (Auto) 8.4 Eos % (Auto) 0.0 Baso % (Auto) 0.1 Neut # (Auto) 10.6 H Lymph # (Auto) 1.2 [place] # (Auto) 1.1 H Eos # (Auto) 0.0 Baso # (Auto) 0.0 Neutrophils % (Manual) 83 H Band Neutrophils % 3 H Lymphocytes % (Manual) 7 L Monocytes % (Manual) 7 Platelet Estimate Normal Anisocytosis (manual) Slight Target Cells Slight PT INR APTT D-Dimer, Quantitative Puncture Site pCO2 pO2 HCO3 ABG pH ABG Total CO2 ABG O2 Saturation ABG Base Excess ABG Hemoglobin ABG Carboxyhemoglobin POC ABG HHb (Measured) ABG Methemoglobin Jose Test A-a O2 Difference Respiratory Index Hgb O2 Saturation FiO2 Sodium 137 Potassium 4.4 Chloride 102 Carbon Dioxide 30 Anion Gap 9 L BUN 9 Creatinine 0.6 L Est GFR ( Amer) > 60 Est GFR (Non-Af Amer) > 60 Random Glucose 121 H Hemoglobin A1c Calcium 9.5 Total Bilirubin 0.2 AST 22 ALT < 6 L D Alkaline Phosphatase 95 Troponin I NT-Pro-B Natriuret Pep Total Protein 7.1 Albumin 3.4 L Globulin 3.8 Albumin/Globulin Ratio 0.9 L Vitamin B12 192 L Folate 18.4 TSH 3rd Generation 0.28 L Influenza Typ A,B (EIA) Assessment & Plan (1) Bronchiectasis with (acute) exacerbation Status: Acute (2) Pleural effusion Status: Acute (3) Pneumonia Status: Acute - Assessment and Plan (Free Text) Assessment: 68 yo female with severe bronchiectasis ' r/o malignancy, fungus, mycobacterium, and or bacterial infection await cultures and serologies poor prognosis
--- NOTE | 2018-08-23 14:22 | CP.PCM.CON ---
History of Present Illness - History of Present Illness History of Present Illness: Reason for consultation: Cough and weakness 68-year-old female with history of asthma presented with 4-6-week history of productive cough, weakness, wheezing and shortness of breath. Also complaining of weight loss which she attributes to loss of appetite. Denies fever chills, denies night sweats, denies hemoptysis, denies chest pain. CAT scan of the chest consistent with bilateral bronchiectasis and fibrosis. PMHx- Asthma PSHx- c/s x1 Fam Hx- Sister with DM and cardiac bypass surgery; Brother with OR Social hx- denies ever tobacco, alcohol, or illicit drug use Meds- denies Allergies- Nyquil and Advil PMD- None currently Full Code Review of Systems - Review of Systems All systems: reviewed and no additional remarkable complaints except (Cough and weakness) Past Patient History - Past Medical History & Family History Past Medical History?: Yes - Past Social History Smoking Status: Never Smoked - CARDIAC Hx Cardiac Disorders: No - PULMONARY Hx Asthma: Yes - NEUROLOGICAL Hx Neurological Disorder: No - HEENT Hx HEENT Problems: No - RENAL Hx Chronic Kidney Disease: No - ENDOCRINE/METABOLIC Hx Endocrine Disorders: No - HEMATOLOGICAL/ONCOLOGICAL Hx Blood Disorders: No - INTEGUMENTARY Hx Dermatological Problems: No - MUSCULOSKELETAL/RHEUMATOLOGICAL Hx Musculoskeletal Disorders: No Hx Falls: No - GASTROINTESTINAL Hx Gastrointestinal Disorders: No - GENITOURINARY/GYNECOLOGICAL Hx Genitourinary Disorders: No - PSYCHIATRIC Hx Substance Use: No - SURGICAL HISTORY Hx Surgeries: Yes Hx Section: Yes - ANESTHESIA Hx Anesthesia: Yes Hx Anesthesia Reactions: No Hx Malignant Hyperthermia: No Meds Allergies/Adverse Reactions: Allergies Allergy/AdvReac Type Severity Reaction Status Date / Time acetaminophen [From NyQuil] Allergy Verified 08/22/18 12:02 dextromethorphan HBr Allergy Verified 08/22/18 12:02 [From NyQuil] doxylamine succinate Allergy Verified 08/22/18 12:02 [From NyQuil] ibuprofen [From Advil] Allergy Verified 08/22/18 12:02 pseudoephedrine HCl Allergy Verified 08/22/18 12:02 [From NyQuil] - Medications Medications: Current Medications Albuterol/Ipratropium (Duoneb 3 Mg/0.5 Mg (3 Ml) Ud) 3 ml INH RQ4 PRN PRN Reason: Shortness of Breath Heparin Sodium (Porcine) (Heparin) 5,000 units SC Q8 [facility] Piperacillin Sod/Tazobactam (Sod 3.375 gm/ Sodium Chloride) 100 mls @ 200 mls/hr IVPB Q6H [facility]; Protocol Last Admin: 08/23/18 11:47 Dose: 200 mls/hr Vancomycin HCl 750 mg/ Sodium (Chloride) 250 mls @ 166.6 mls/hr IVPB Q12H [facility]; Protocol Last Admin: 08/23/18 06:21 Dose: 166.6 mls/hr Methylprednisolone (Solu-Medrol) 40 mg IVP BID [facility] Last Admin: 08/23/18 10:48 Dose: 40 mg Multivitamins (Hexavitamin) 1 tab PO DAILY [facility] Last Admin: 08/23/18 10:58 Dose: 1 tab Pantoprazole Sodium (Protonix Ec Tab) 20 mg PO DAILY [facility] Last Admin: 08/23/18 10:58 Dose: 20 mg Physical Exam - Head Exam Head Exam: ATRAUMATIC, NORMOCEPHALIC - ENT Exam ENT Exam: Mucous Membranes Moist - Neck Exam Neck exam: Positive for: Normal Inspection - Respiratory Exam Respiratory Exam: Rales, Rhonchi, Wheezes - Cardiovascular Exam Cardiovascular Exam: REGULAR RHYTHM - GI/Abdominal Exam GI & Abdominal Exam: Normal Bowel Sounds - Extremities Exam Extremities exam: Positive for: normal inspection - Neurological Exam Neurological exam: Alert, Oriented x3 Results - Vital Signs Recent Vital Signs: Last Vital Signs Temp 97.8 F 08/23/18 08:01 Pulse 99 H 08/23/18 08:01 Resp 20 08/23/18 08:01 BP 133/79 08/23/18 08:01 Pulse Ox 95 08/23/18 08:01 - Labs Result Diagrams: 08/23/18 07:14 08/23/18 07:14 Labs: Laboratory Results - last 24 hr 08/22/18 08/22/18 08/22/18 14:23 14:23 14:23 WBC 11.0 H RBC 5.14 Hgb 13.1 D Hct 40.0 MCV 77.9 L MCH 25.5 L MCHC 32.8 L RDW 14.9 H Plt Count 375 MPV 9.9 Neut % (Auto) 74.5 Lymph % (Auto) 15.5 L [place] % (Auto) 8.3 Eos % (Auto) 1.1 Baso % (Auto) 0.6 Neut # (Auto) 8.2 H Lymph # (Auto) 1.7 [place] # (Auto) 0.9 H Eos # (Auto) 0.1 Baso # (Auto) 0.1 Neutrophils % (Manual) Band Neutrophils % Lymphocytes % (Manual) Monocytes % (Manual) Platelet Estimate Anisocytosis (manual) Target Cells PT 12.4 H INR 1.1 APTT 30 D-Dimer, Quantitative 993 H Puncture Site pCO2 pO2 HCO3 ABG pH ABG Total CO2 ABG O2 Saturation ABG Base Excess ABG Hemoglobin ABG Carboxyhemoglobin POC ABG HHb (Measured) ABG Methemoglobin Jose Test A-a O2 Difference Respiratory Index Hgb O2 Saturation FiO2 Sodium Potassium Chloride Carbon Dioxide Anion Gap BUN Creatinine Est GFR ( Amer) Est GFR (Non-Af Amer) Random Glucose Hemoglobin A1c Calcium Total Bilirubin AST ALT Alkaline Phosphatase Troponin I NT-Pro-B Natriuret Pep Total Protein Albumin Globulin Albumin/Globulin Ratio Vitamin B12 Folate TSH 3rd Generation Influenza Typ A,B (EIA) Negative for flu a/b 08/22/18 08/22/18 08/23/18 14:23 19:25 07:14 WBC RBC Hgb Hct MCV MCH MCHC RDW Plt Count MPV Neut % (Auto) Lymph % (Auto) [place] % (Auto) Eos % (Auto) Baso % (Auto) Neut # (Auto) Lymph # (Auto) [place] # (Auto) Eos # (Auto) Baso # (Auto) Neutrophils % (Manual) Band Neutrophils % Lymphocytes % (Manual) Monocytes % (Manual) Platelet Estimate Anisocytosis (manual) Target Cells PT INR APTT D-Dimer, Quantitative Puncture Site Rba pCO2 35 pO2 120 H HCO3 23.4 ABG pH 7.41 ABG Total CO2 23.3 ABG O2 Saturation 99.7 H ABG Base Excess -1.9 ABG Hemoglobin 12.4 ABG Carboxyhemoglobin 2.1 H POC ABG HHb (Measured) 0.3 ABG Methemoglobin 1.4 Jose Test Pos A-a O2 Difference 72.0 Respiratory Index 0.6 Hgb O2 Saturation 96.2 FiO2 33.0 Sodium 134 Potassium 4.5 Chloride 97 L Carbon Dioxide 29 Anion Gap 13 BUN 9 Creatinine 0.7 Est GFR ( Amer) > 60 Est GFR (Non-Af Amer) > 60 Random Glucose 114 H D Hemoglobin A1c 6.4 Calcium 9.7 Total Bilirubin 0.2 AST 27 ALT 10 Alkaline Phosphatase 119 Troponin I < 0.0120 NT-Pro-B Natriuret Pep 1220 H Total Protein 8.0 Albumin 3.7 Globulin 4.3 H Albumin/Globulin Ratio 0.9 L Vitamin B12 Folate TSH 3rd Generation Influenza Typ A,B (EIA) 08/23/18 08/23/18 07:14 07:14 WBC 12.9 H RBC 4.37 Hgb 11.0 D Hct 33.9 L MCV 77.7 L MCH 25.2 L MCHC 32.4 L RDW 15.4 H Plt Count 326 MPV 9.5 Neut % (Auto) 82.3 H Lymph % (Auto) 9.2 L [place] % (Auto) 8.4 Eos % (Auto) 0.0 Baso % (Auto) 0.1 Neut # (Auto) 10.6 H Lymph # (Auto) 1.2 [place] # (Auto) 1.1 H Eos # (Auto) 0.0 Baso # (Auto) 0.0 Neutrophils % (Manual) 83 H Band Neutrophils % 3 H Lymphocytes % (Manual) 7 L Monocytes % (Manual) 7 Platelet Estimate Normal Anisocytosis (manual) Slight Target Cells Slight PT INR APTT D-Dimer, Quantitative Puncture Site pCO2 pO2 HCO3 ABG pH ABG Total CO2 ABG O2 Saturation ABG Base Excess ABG Hemoglobin ABG Carboxyhemoglobin POC ABG HHb (Measured) ABG Methemoglobin Jose Test A-a O2 Difference Respiratory Index Hgb O2 Saturation FiO2 Sodium 137 Potassium 4.4 Chloride 102 Carbon Dioxide 30 Anion Gap 9 L BUN 9 Creatinine 0.6 L Est GFR ( Amer) > 60 Est GFR (Non-Af Amer) > 60 Random Glucose 121 H Hemoglobin A1c Calcium 9.5 Total Bilirubin 0.2 AST 22 ALT < 6 L D Alkaline Phosphatase 95 Troponin I NT-Pro-B Natriuret Pep Total Protein 7.1 Albumin 3.4 L Globulin 3.8 Albumin/Globulin Ratio 0.9 L Vitamin B12 192 L Folate 18.4 TSH 3rd Generation 0.28 L Influenza Typ A,B (EIA) Assessment & Plan (1) Bronchiectasis with (acute) exacerbation Assessment and Plan: CAT scan of the chest consistent with bilateral bronchiectasis with fibrosis Rule out HEMANT infection Fiberoptic bronchoscopy with biopsy and lavage Continue isolation Nebulizer treatment and Mucomyst Broad-spectrum antibiotics Status: Acute (2) Pleural effusion Status: Acute
[2018-08-24] MEDS: Piperacillin/Tazobact 3.375 GM in Sodium Chloride 100 ML IVPB SCH ×4 (00:21→19:47)
[2018-08-24] MEDS: Acetylcysteine 20% Inhal Soln (4ml) INH SCH (01:46)
[2018-08-24] MEDS ORDERED: Metoprolol 1 mg/ml Inj IVP ONE (03:08)
[2018-08-24] MEDS: MethylPREDNISolone 40 mg Vial IVP SCH ×2 (06:44→21:58)
--- NOTE | 2018-08-24 07:31 | CP.PCM.PN ---
<Lester Rooney - Last Filed: 08/24/18 18:58> Subjective - Date & Time of Evaluation Date of Evaluation: 08/24/18 Time of Evaluation: 11:30 - Subjective Subjective: Medicine progress not for Dr. Khan Pt seen and examined at bedside. Pt is resting comfortably, but visibly anxious. Cough continues to be nonproductive, but with congestion in the chest. She is eating, but does not like the food here. She continues to ambulate well in the room. Denies fever, chills, chest pain, sob, abdominal pain, n/v/d, hematochezia, melena, hemoptysis, hematemasis, any signs of bleeding. Objective - Vital Signs/Intake and Output Vital Signs (last 24 hours): Temp Pulse Resp BP Pulse Ox 97.2 F L 125 H 20 160/95 H 100 08/23/18 23:00 08/24/18 00:56 08/23/18 23:00 08/23/18 23:00 08/23/18 23:00 - Medications Medications: Current Medications Acetylcysteine (Acetylcysteine 20%) 4 ml INH RQ6 [facility] Last Admin: 08/24/18 01:46 Dose: Not Given Albuterol/Ipratropium (Duoneb 3 Mg/0.5 Mg (3 Ml) Ud) 3 ml INH RQ4 PRN PRN Reason: Shortness of Breath Heparin Sodium (Porcine) (Heparin) 5,000 units SC Q8 [facility] Last Admin: 08/24/18 06:44 Dose: Not Given Piperacillin Sod/Tazobactam (Sod 3.375 gm/ Sodium Chloride) 100 mls @ 200 mls/hr IVPB Q6H [facility]; Protocol Last Admin: 08/24/18 06:35 Dose: 200 mls/hr Vancomycin HCl 750 mg/ Sodium (Chloride) 250 mls @ 166.6 mls/hr IVPB Q12H [facility]; Protocol Last Admin: 08/23/18 19:14 Dose: 166.6 mls/hr Methylprednisolone (Solu-Medrol) 40 mg IVP Q8 [facility] Last Admin: 08/24/18 06:44 Dose: 40 mg Multivitamins (Hexavitamin) 1 tab PO DAILY [facility] Last Admin: 08/23/18 10:58 Dose: 1 tab Pantoprazole Sodium (Protonix Ec Tab) 20 mg PO DAILY [facility] Last Admin: 08/23/18 10:58 Dose: 20 mg - Labs Labs: 08/23/18 07:14 08/23/18 07:14 PT 12.4 SECONDS (9.7-12.2) H 08/22/18 14:23 INR 1.1 08/22/18 14:23 APTT 30 SECONDS (21-34) 08/22/18 14:23 - Additional Findings Additional findings: - Constitutional Appears: Non-toxic, No Acute Distress, Cachectic - Head Exam Head Exam: ATRAUMATIC, NORMAL INSPECTION - Eye Exam Eye Exam: EOMI, Normal appearance - ENT Exam ENT Exam: Mucous Membranes Moist - Respiratory Exam Respiratory Exam: Rales (bilaterally), Rhonchi (bilaterally), NORMAL BREATHING PATTERN. absent: Wheezes, Respiratory Distress, Stridor - Cardiovascular Exam Cardiovascular Exam: REGULAR RHYTHM, +S1, +S2. absent: Tachycardia - GI/Abdominal Exam GI & Abdominal Exam: Soft, Normal Bowel Sounds. absent: Distended, Firm, Guarding, Rigid, Tenderness, Organomegaly - Extremities Exam Extremities Exam: Normal Inspection. absent: Calf Tenderness - Back Exam Back Exam: NORMAL INSPECTION. absent: CVA tenderness (L), CVA tenderness (R) - Neurological Exam Neurological Exam: Alert, Awake - Psychiatric Exam Psychiatric exam: Normal Affect, Normal Mood - Skin Skin Exam: Dry, Normal Color, Warm Assessment and Plan - Assessment and Plan (Free Text) Assessment: 68yo F with PMH asthma admitted for cystic bronchiectasis, history of weight loss. Plan: Cystic Bronchiectasis Bilateral Pneumonia, L pleural effusion - CXR (08/22): extensive bilateral pulmonary infiltrate. likely bilateral pneumonia. small moderate left pleural effusion. - CT Chest A/P (08/22): cystic bronchiectasis with L sided effusion, mild fatty hepatic infiltration, gastric wall thickening, distended urinary bladder - Leukocytosis increased from 12.9 to 16.6, likely due to CCS treatment. Pt afebrile during hospitalization. - ABG on admission is normal - Influenza negative - HIV negative, Hepatitis panel negative - Duonebs INH rQ4 - Solumedrol 40mg IVP BID increased to Q8H - Zosyn 3.375gm IVPB q6 (started 08/22) - Vancomycin 750mg IVPB q12 (started 08/22) - O2 via NC prn - ID consulted: Dr. Land - Pulm consulted: Dr. Bashir CAT scan of the chest consistent with bilateral bronchiectasis with fibrosis Rule out HEMANT infection Continue isolation Nebulizer treatment and Mucomyst Broad-spectrum antibiotics - Blood culture x 2 negative for growth x 48 hours - Airborne precautions - Pt did not want bronchoscopy today. Multiple attempts made to explain the severity of her condition and high likelihood to progress to worsening shortness of breath and potentially respiratory distress. I explained to her the risks of not having an accurate diagnosis without bronchoscopy, but she did not want to talk with my attending or I, and continued to refuse the procedure. - r/o Aspergillus, TB (quantiferon) - f/u AFB x3 - F/u strep pneumon, legionella, mycoplasma pneumoniae, Alpha-1 antitrypsin level, Sputum Cx D-dimer elevation - DDimer noted to be 993 in the ED - Pt's ABG was normal, satting well on room air, resolution of sob - Pt refused venous doppler studies in bilateral lower extremities. I informed her that the ddimer elevation may mean that she has a blood clot, and there is a possibility of it traveling to her lungs and could potentially kill her. Pt relays understanding, but adamantly refuses at this time. She states that she may change her mind. Cachectia 30lb weight loss in 2 months - Diet consult - TSH is 0.28, FT4 is 1.94 Subclinical hyperthyroidism, no indication for treatment at this time. Outpatient management PPx - DVT: Heparin 5000u SC q8 - GI: Protonix 20mg po daily - Diet: HHD, MVI - PT/OT - Palliative Care consulted: Carol Ann. See note. Airborne Isolation Pt is full code. She reports that her sons will make decisions for her in case she is incapacitated. <Ángel Khan - Last Filed: 08/27/18 17:12> Objective - Vital Signs/Intake and Output Vital Signs (last 24 hours): Temp Pulse Resp BP Pulse Ox 97.6 F 105 H 20 124/76 100 08/25/18 07:10 08/25/18 08:42 08/25/18 07:10 08/25/18 07:10 08/25/18 07:10 - Medications Medications: Current Medications Acetylcysteine (Acetylcysteine 20%) 4 ml INH RQ6 [facility] Last Admin: 08/25/18 01:27 Dose: 4 ml Albuterol/Ipratropium (Duoneb 3 Mg/0.5 Mg (3 Ml) Ud) 3 ml INH RQ4 PRN PRN Reason: Shortness of Breath Last Admin: 08/25/18 01:27 Dose: 3 ml Heparin Sodium (Porcine) (Heparin) 5,000 units SC Q8 [facility] Last Admin: 08/25/18 05:56 Dose: Not Given Piperacillin Sod/Tazobactam (Sod 3.375 gm/ Sodium Chloride) 100 mls @ 200 mls/hr IVPB Q6H [facility]; Protocol Last Admin: 08/25/18 05:57 Dose: 200 mls/hr Vancomycin HCl 1 gm/ Sodium (Chloride) 250 mls @ 166.7 mls/hr IVPB Q12H [facility]; Protocol Methylprednisolone (Solu-Medrol) 40 mg IVP Q12 [facility] Last Admin: 08/24/18 21:58 Dose: 40 mg Multivitamins (Hexavitamin) 1 tab PO DAILY [facility] Last Admin: 08/24/18 09:11 Dose: Not Given Pantoprazole Sodium (Protonix Ec Tab) 20 mg PO DAILY [facility] Last Admin: 08/24/18 09:11 Dose: Not Given - Labs Labs: 08/25/18 07:25 08/25/18 07:25 PT 12.4 SECONDS (9.7-12.2) H 08/22/18 14:23 INR 1.1 08/22/18 14:23 APTT 30 SECONDS (21-34) 08/22/18 14:23 Attending/Attestation - Attestation I have personally seen and examined this patient.: Yes I have fully participated in the care of the patient.: Yes I have reviewed all pertinent clinical information, including history, physical exam and plan: Yes Notes (Text): seen and examined. Patient has mild sob,talking in full sentence. Refuses bronchoscopy. she was explained about her lung finding and the importance of diagnostic work up for her to improve her sickness. Patient believes that she will be ok without any procedure. She refuses venous Doppler,HEMANT study ordered.
[2018-08-24 08:05] LABS: BASO % 0.1 % (0.0-2.0); HEMOGLOBIN 12.4 g/dL (11.0-16.0); LYMPH # 1.4 K/uL (1.0-4.3); LYMPH % 8.2 % (20.0-40.0); MEAN CELL VOLUME 78.7 fL (81.0-99.0); MEAN CORPUSCULAR HEMOGLOBIN 25.7 pg (27.0-31.0); MEAN CORPUSCULAR HGB CONC 32.6 g/dL (33.0-37.0); MEAN PLATELET VOLUME 9.9 fL (7.2-11.7); MONO # 0.8 K/uL (0.0-0.8); MONO % 4.8 % (0.0-10.0); NEUT # 14.4 K/uL (1.8-7.0); NEUT % 86.9 % (50.0-75.0); PLATELET COUNT 363 K/uL (130-400); RBC 4.84 Mil/uL (3.80-5.20); RED CELL DISTRIBUTION WIDTH 15.4 % (11.5-14.5); WHITE BLOOD COUNT 16.6 K/uL (4.8-10.8)
[2018-08-24 08:14] LABS: ALB/GLOB RATIO 0.9 (1.0-2.1); ALBUMIN 3.7 g/dL (3.5-5.0); ALT/SGPT < 6 U/L (9-52); AST/SGOT 31 U/L (14-36); BLOOD UREA NITROGEN 12 mg/dL (7-17); CALCIUM 9.8 mg/dl (8.6-10.4); GFR NON-AFRICAN AMERICAN > 60
[2018-08-24 08:54] LABS: HEPATITIS B SURFACE AG Negative (NEGATIVE)
[2018-08-24 08:56] LABS: LYMPHOCYTE 6 % (20-40); MONOCYTE 5 % (0-10); NEUTROPHIL 89 % (50-75); TOTAL CELLS COUNTED 100
[2018-08-24 08:57] LABS: PLATELET ESTIMATE NORMAL (NORMAL)
[2018-08-24 09:00] LABS: HEPATITIS A IGM NEGATIVE (NEGATIVE); HEPATITIS B CORE AB NEGATIVE (NEGATIVE)
[2018-08-24] MEDS: Multiple Vitamins Tab PO SCH (09:11)
[2018-08-24] MEDS: Pantoprazole 20 mg EC Tab PO SCH (09:11)
[2018-08-24 09:12] LABS: HEPATITIS C ANTIBODY NEGATIVE (NEGATIVE)
--- NOTE | 2018-08-24 15:09 | CP.PCM.PN ---
Subjective - Date & Time of Evaluation Date of Evaluation: 08/24/18 Time of Evaluation: 13:00 - Subjective Subjective: Patient seen and examined at bedside. 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 Physical Exam: General: Awake, alert and oriented; not in any distress Cardio: Regular rhythm and rate; +S1 +S2; no murmur Pulm: Rales, rhonchi, wheezes Abd: Soft, non-distended CXR 08/22: Extensive b/l pulmonary infiltrate. Likely b/l pneumonia. Small moderate left pleural effusion. Chest CT 08/22: Consistent with b/l bronchiectasis and fibrosis. Assessment and Plan:? Bronchiectasis with (acute) exacerbation - R/O HEMANT infection - Fiberoptic bronchoscopy w/ biopsy and lavage which patient refuses and had an extensive discussion - Continue isolation - Nebulizer treatment & Mucomyst - Broad-spectrum antibiotics Pleural Effusion Objective - Vital Signs/Intake and Output Vital Signs (last 24 hours): Temp Pulse Resp BP Pulse Ox 97.4 F L 105 H 20 132/87 98 08/24/18 07:17 08/24/18 08:00 08/24/18 07:17 08/24/18 07:17 08/24/18 07:17 - Medications Medications: Current Medications Acetylcysteine (Acetylcysteine 20%) 4 ml INH RQ6 [facility] Last Admin: 08/24/18 01:46 Dose: Not Given Albuterol/Ipratropium (Duoneb 3 Mg/0.5 Mg (3 Ml) Ud) 3 ml INH RQ4 PRN PRN Reason: Shortness of Breath Heparin Sodium (Porcine) (Heparin) 5,000 units SC Q8 [facility] Last Admin: 08/24/18 14:00 Dose: Not Given Piperacillin Sod/Tazobactam (Sod 3.375 gm/ Sodium Chloride) 100 mls @ 200 mls/hr IVPB Q6H [facility]; Protocol Last Admin: 08/24/18 14:44 Dose: 200 mls/hr Vancomycin HCl 750 mg/ Sodium (Chloride) 250 mls @ 166.6 mls/hr IVPB Q12H [facility]; Protocol Last Admin: 08/24/18 08:16 Dose: 166.6 mls/hr Methylprednisolone (Solu-Medrol) 40 mg IVP Q12 [facility] Multivitamins (Hexavitamin) 1 tab PO DAILY [facility] Last Admin: 08/24/18 09:11 Dose: Not Given Pantoprazole Sodium (Protonix Ec Tab) 20 mg PO DAILY [facility] Last Admin: 08/24/18 09:11 Dose: Not Given - Labs Labs: 08/24/18 07:35 08/24/18 07:35 PT 12.4 SECONDS (9.7-12.2) H 08/22/18 14:23 INR 1.1 08/22/18 14:23 APTT 30 SECONDS (21-34) 08/22/18 14:23 Assessment and Plan (1) Bronchiectasis with (acute) exacerbation Status: Acute (2) Pleural effusion Status: Acute
--- NOTE | 2018-08-24 16:23 | CP.PCM.CON ---
History of Present Illness - History of Present Illness History of Present Illness: Palliative consult requested by Doctor Raj for goals of care discussion Patient is a 68 yo female admitted from home with cough and productive cough X 4 - 6 weeks. patient denied chills, fever or blood in the sputum. Shweta ent was encouraged by her family to come to ED for diagnosing. CXR was suggestive of extensive, B/L infiltrate and started on Zosyn, Vanco and Solu Medrol. CT was significant for fibrosis and B/L bronchiectasis. Pulmonary consult called. Doctor cMkay suggested bronchoscopy with biopsy but patient r efused it. Patient is also suspicious for HEMANT infection and was placed on isolation. palliative care was asked to assist patient in decision making process. PMH: asthma Soc. Hx" lives at home, has two sons, unemployed, used to work at [employer] years ago, never smoked Fam. Hx: denies known Hx Review of Systems - Constitutional Constitutional: Fatigue - EENT Eyes: absent: As Per HPI, Blind Spots, Blurred Vision, Change in Vision, Decreased Night Vision, Diplopia, Discharge, Dry Eye, Exophthalmos, Floaters, Irritation, Itchy Eyes, Loss of Peripheral Vision, Pain, Photophobia, Requires Corrective Lenses, Sees Flashes, Spots in Vision, Tunnel Vision, Other Visual Disturbances, Loss of Vision, Other Ears: absent: As Per HPI, Decreased Hearing, Ear Discharge, Ear Pain, Tinnitus, Abnormal Hearing, Disequilibrium, Dizziness, Other Nose/Mouth/Throat: absent: As Per HPI, Epistaxis, Nasal Congestion, Nasal Discharge, Nasal Obstruction, Nasal Trauma, Nose Pain, Post Nasal Drip, Sinus Pain, Sinus Pressure, Bleeding Gums, Change in Voice, Dental Pain, Dry Mouth, Dysphagia, Halitosis, Hoarsness, Lip Swelling, Mouth Lesions, Mouth Pain, Odynophagia, Sore Throat, Throat Swelling, Tongue Swelling, Facial Pain, Neck Pain, Neck Mass, Other - Breasts Breasts: absent: As Per HPI, Change in Shape, Mass, Pain, Nipple Discharge, Nipple Inversion, Skin Changes, Swelling, Other - Cardiovascular Cardiovascular: absent: As Per HPI, Acrocyanosis, Chest Pain, Chest Pain at Rest, Chest Pain with Activity, Claudication, Diaphoresis, Dyspnea, Dyspnea on Exertion, Edema, Irregular Heart Rhythm, Pain Radiating to Arm/Neck/Jaw, Leg Edema, Leg Ulcers, Lightheadedness, Orthopnea, Palpitations, Paroxysmal Nocturnal Dyspnea, Pedal Edema, Radiating Pain, Rapid Heart Rate, Slow Heart Rate, Syncope, Other - Respiratory Respiratory: Cough, Dyspnea, Chest Congestion - Gastrointestinal Gastrointestinal: absent: As Per HPI, Abdominal Pain, Belching, Bloating, Change in Bowel Habits, Change in Stool Character, Coffee Ground Emesis, Constipation, Cramping, Diarrhea, Dyspepsia, Dysphagia, Early Satiety, Excessive Flatus, Fecal Incontinence, Heartburn, Hematemesis, Hematochezia, Loose Stools, Melena, Nausea, Odynophagia, Temesmus, Vomiting, Other - Genitourinary Genitourinary: absent: As Per HPI, Change in Urinary Stream, Difficulty Urinating, Dysuria, Flank Pain, Hematuria, Pyuria, Nocturia, Urinary Incontinence, Urinary Frequency, Urinary Hesitance, Urinary Urgency, Voiding Freq/Small Amts, Freq UTI, Hx Renal/Bladder Calculi, Hx /Renal Surgery, B ladder Distension, Other - Reproductive: Female Reproductive:Female: Post Menopausal - Menstruation Menstruation: Post Menopausal - Musculoskeletal Musculoskeletal: absent: As Per HPI, Abnormal Gait, Arthralgias, Atrophy, Back Pain, Deformity, Joint Swelling, Limited Range of Motion, Loss of Height, Muscle Cramps, Muscle Weakness, Myalgias, Neck Pain, Numbness, Radiating Pain into Limb, Stiffness, Tingling, Other - Integumentary Integumentary: Dry Skin - Neurological Neurological: absent: As Per HPI, Abnormal Gait, Abnormal Hearing, Abnormal Movements, Abnormal Speech, Behavioral Changes, Burning Sensations, Confusion, Convulsions, Disequilibrium, Dizziness, Numbness, Focal Weakness, Frequent Fal ls, Headaches, Lack of Coordination, Loss of Vision, Memory Loss, Paresthesias, Radicular Pain, Restless Legs, Sensory Deficit, Syncope, Tingling, Tremor, Vertigo, Weakness, Other Visual Disturbances, Other - Psychiatric Psychiatric: Anxiety - Endocrine Endocrine: absent: As Per HPI, Change in Body Appearance, Change in Libido, Cold Intolorance, Deepening of Voice, Excessive Sweating, Fatigue, Flushing, Heat Intolorance, Increase in Ring/Shoe/Hat Size, Palpitations, Polydipsia, Polyphagia, Polyuria, Other - Hematologic/Lymphatic Hematologic: absent: As Per HPI, Easy Bleeding, Easy Bruising, Lymphadenopathy, Other Past Patient History - Past Medical History & Family History Past Medical History?: Yes - Past Social History Smoking Status: Never Smoked - CARDIAC Hx Cardiac Disorders: No - PULMONARY Hx Asthma: Yes - NEUROLOGICAL Hx Neurological Disorder: No - HEENT Hx HEENT Problems: No - RENAL Hx Chronic Kidney Disease: No - ENDOCRINE/METABOLIC Hx Endocrine Disorders: No - HEMATOLOGICAL/ONCOLOGICAL Hx Blood Disorders: No - INTEGUMENTARY Hx Dermatological Problems: No - MUSCULOSKELETAL/RHEUMATOLOGICAL Hx Musculoskeletal Disorders: No Hx Falls: No - GASTROINTESTINAL Hx Gastrointestinal Disorders: No - GENITOURINARY/GYNECOLOGICAL Hx Genitourinary Disorders: No - PSYCHIATRIC Hx Substance Use: No - SURGICAL HISTORY Hx Surgeries: Yes Hx Section: Yes - ANESTHESIA Hx Anesthesia: Yes Hx Anesthesia Reactions: No Hx Malignant Hyperthermia: No Meds Allergies/Adverse Reactions: Allergies Allergy/AdvReac Type Severity Reaction Status Date / Time acetaminophen [From NyQuil] Allergy Verified 08/22/18 12:02 dextromethorphan HBr Allergy Verified 08/22/18 12:02 [From NyQuil] doxylamine succinate Allergy Verified 08/22/18 12:02 [From NyQuil] ibuprofen [From Advil] Allergy Verified 08/22/18 12:02 pseudoephedrine HCl Allergy Verified 08/22/18 12:02 [From NyQuil] - Medications Medications: Current Medications Acetylcysteine (Acetylcysteine 20%) 4 ml INH RQ6 [facility]NA Last Admin: 08/24/18 01:46 Dose: Not Given Albuterol/Ipratropium (Duoneb 3 Mg/0.5 Mg (3 Ml) Ud) 3 ml INH RQ4 PRN PRN Reason: Shortness of Breath Heparin Sodium (Porcine) (Heparin) 5,000 units SC Q8 [facility]NA Last Admin: 08/24/18 14:00 Dose: Not Given Piperacillin Sod/Tazobactam (Sod 3.375 gm/ Sodium Chloride) 100 mls @ 200 mls/hr IVPB Q6H [facility]; Protocol Last Admin: 08/24/18 14:44 Dose: 200 mls/hr Vancomycin HCl 750 mg/ Sodium (Chloride) 250 mls @ 166.6 mls/hr IVPB Q12H [facility]; Protocol Last Admin: 08/24/18 08:16 Dose: 166.6 mls/hr Methylprednisolone (Solu-Medrol) 40 mg IVP Q12 [facility] Multivitamins (Hexavitamin) 1 tab PO DAILY [facility] Last Admin: 08/24/18 09:11 Dose: Not Given Pantoprazole Sodium (Protonix Ec Tab) 20 mg PO DAILY [facility] Last Admin: 08/24/18 09:11 Dose: Not Given Physical Exam - Constitutional Appears: Chronically Ill - Head Exam Head Exam: ATRAUMATIC, NORMAL INSPECTION, NORMOCEPHALIC - Eye Exam Eye Exam: EOMI, Normal appearance, PERRL Pupil Exam: NORMAL ACCOMODATION, PERRL - ENT Exam ENT Exam: Mucous Membranes Moist, Normal Exam - Neck Exam Neck exam: Positive for: Normal Inspection - Respiratory Exam Respiratory Exam: Chest Wall Tenderness, Decreased Breath Sounds, Prolonged Expiratory Phase, Rhonchi, NORMAL BREATHING PATTERN - Cardiovascular Exam Cardiovascular Exam: Tachycardia, REGULAR RHYTHM, +S1, +S2 - GI/Abdominal Exam GI & Abdominal Exam: Normal Bowel Sounds, Soft - Rectal Exam Rectal Exam: Deferred - Exam Exam: NORMAL INSPECTION - Extremities Exam Extremities exam: Positive for: normal inspection - Back Exam Back exam: NORMAL INSPECTION - Neurological Exam Neurological exam: Alert, Oriented x3 - Psychiatric Exam Psychiatric exam: Anxious - Skin Skin Exam: Dry, Intact, Normal Color, Warm Results - Vital Signs Recent Vital Signs: Last Vital Signs Temp 97.7 F 08/24/18 15:00 Pulse 102 H 08/24/18 15:00 Resp 18 08/24/18 15:00 BP 132/81 08/24/18 15:00 Pulse Ox 97 08/24/18 15:00 - Labs Result Diagrams: 08/24/18 07:35 08/24/18 07:35 Labs: Laboratory Results - last 24 hr 08/24/18 08/24/18 08/24/18 07:35 07:35 07:35 WBC 16.6 H RBC 4.84 Hgb 12.4 Hct 38.1 MCV 78.7 L MCH 25.7 L MCHC 32.6 L RDW 15.4 H Plt Count 363 MPV 9.9 Neut % (Auto) 86.9 H Lymph % (Auto) 8.2 L Dixie % (Auto) 4.8 Eos % (Auto) 0.0 Baso % (Auto) 0.1 Neut # (Auto) 14.4 H Lymph # (Auto) 1.4 Dixie # (Auto) 0.8 Eos # (Auto) 0.0 Baso # (Auto) 0.0 Neutrophils % (Manual) 89 H Lymphocytes % (Manual) 6 L Monocytes % (Manual) 5 Platelet Estimate Normal Sodium 137 Potassium 4.3 Chloride 100 Carbon Dioxide 28 Anion Gap 13 BUN 12 Creatinine 0.8 Est GFR ( Amer) > 60 Est GFR (Non-Af Amer) > 60 Random Glucose 191 H D Calcium 9.8 Total Bilirubin 0.2 AST 31 ALT < 6 L Alkaline Phosphatase 107 Total Protein 7.6 Albumin 3.7 Globulin 3.9 Albumin/Globulin Ratio 0.9 L Free T4 Hepatitis A IgM Ab Negative Hep Bs Antigen Negative Hep B Core IgM Ab Negative Hepatitis C Antibody Negative HIV 1&2 Antibody Screen 08/24/18 08/24/18 07:35 10:29 WBC RBC Hgb Hct MCV MCH MCHC RDW Plt Count MPV Neut % (Auto) Lymph % (Auto) Dixie % (Auto) Eos % (Auto) Baso % (Auto) Neut # (Auto) Lymph # (Auto) Dixie # (Auto) Eos # (Auto) Baso # (Auto) Neutrophils % (Manual) Lymphocytes % (Manual) Monocytes % (Manual) Platelet Estimate Sodium Potassium Chloride Carbon Dioxide Anion Gap BUN Creatinine Est GFR ( Amer) Est GFR (Non-Af Amer) Random Glucose Calcium Total Bilirubin AST ALT Alkaline Phosphatase Total Protein Albumin Globulin Albumin/Globulin Ratio Free T4 1.94 Hepatitis A IgM Ab Hep Bs Antigen Hep B Core IgM Ab Hepatitis C Antibody HIV 1&2 Antibody Screen Negative Assessment & Plan - Assessment and Plan (Free Text) Assessment: Palliative consult Full Code, there is no Advance directive on chart, PPS 70% I reviewed all Medical records, diagnostic studies, examined and interviewed patient in the bed Patient is alert, oriented, Indian speaking only, with affect that is anxious. Official translation used. Skin is dry, intact, no wounds/edema noted. Breath sounds are diminished and congested, productive cough noted, sputum yellow, O2Sat 98 % RA Abdomen flat, non distended, active bowel sounds, tolerates diet, denies constipation. Extremities mobile, no edema, pedal and radial pulses present. BP 132/87, HR 90-131 WBC 16.6, Hb 12.4 Goals of care discussed with patient. Prior my visit, patient had discussion about bronchoscopy with Pulmonary team and refused intervention. I elicited patient;s understanding of her condition and her concerns. Patient admitted being very anxious as she " sees so many Doctors" and feels pressured by all those questions. I specifically asked her about bronchoscopy and her refusal of such interventions. Patient admitted to fear of procedure. I went into details about the purpose of the procedure and its importance in guiding further care. I was very clear about that her condition may get worse due to lack of needed diagnost ic studies, but she had right to do so as long as she is aware of consequences. Patient cried and avoided eye contacts . I discussed signs and symptoms of anxiety and offered anianxiety meds to be or dered but patient refused. Patient asked for extra time to think it over and to talk to her children. We agreed to meet tomorrow again. I did not discuss Code status as I felt patient was too stressed out for this kind of discussion. Impression * Pulmonary fibrosis * Pneumonia * Productive cough * Anxiety due to changes in health condition and fear of unknown * Denial * Patient needs a lot of emotional support during decision making process Suggestion * Continue IV antibiotics * Continue O2 supplement * Neb Tx * Monitor for worsening of anxiety, use reassurance and distraction to make her feel better * Allow time for patient to absorb all information regarding her health * Reassure patient of care provided I will meet with patient tomorrow again and re visit goals of care discussion. Advance care planing 40 min
--- NOTE | 2018-08-24 18:17 | CP.PCM.PN ---
Subjective - Date & Time of Evaluation Date of Evaluation: 08/24/18 Time of Evaluation: 09:00 - Subjective Subjective: refusing bronchoscopy afeb weak Objective - Vital Signs/Intake and Output Vital Signs (last 24 hours): Temp Pulse Resp BP Pulse Ox 97.7 F 102 H 18 132/81 97 08/24/18 15:00 08/24/18 15:00 08/24/18 15:00 08/24/18 15:00 08/24/18 15:00 - Medications Medications: Current Medications Acetylcysteine (Acetylcysteine 20%) 4 ml INH RQ6 [facility]NA Last Admin: 08/24/18 01:46 Dose: Not Given Albuterol/Ipratropium (Duoneb 3 Mg/0.5 Mg (3 Ml) Ud) 3 ml INH RQ4 PRN PRN Reason: Shortness of Breath Heparin Sodium (Porcine) (Heparin) 5,000 units SC Q8 [facility] Last Admin: 08/24/18 14:00 Dose: Not Given Piperacillin Sod/Tazobactam (Sod 3.375 gm/ Sodium Chloride) 100 mls @ 200 mls/hr IVPB Q6H [facility]; Protocol Last Admin: 08/24/18 14:44 Dose: 200 mls/hr Vancomycin HCl 750 mg/ Sodium (Chloride) 250 mls @ 166.6 mls/hr IVPB Q12H [facility]; Protocol Last Admin: 08/24/18 08:16 Dose: 166.6 mls/hr Methylprednisolone (Solu-Medrol) 40 mg IVP Q12 [facility] Multivitamins (Hexavitamin) 1 tab PO DAILY [facility] Last Admin: 08/24/18 09:11 Dose: Not Given Pantoprazole Sodium (Protonix Ec Tab) 20 mg PO DAILY [facility] Last Admin: 08/24/18 09:11 Dose: Not Given - Labs Labs: 08/24/18 07:35 08/24/18 07:35 PT 12.4 SECONDS (9.7-12.2) H 08/22/18 14:23 INR 1.1 08/22/18 14:23 APTT 30 SECONDS (21-34) 08/22/18 14:23 - Constitutional Appears: Non-toxic, No Acute Distress, Chronically Ill - Head Exam Head Exam: NORMOCEPHALIC - Eye Exam Eye Exam: absent: Scleral icterus - ENT Exam ENT Exam: Mucous Membranes Dry - Neck Exam Neck Exam: absent: Lymphadenopathy - Respiratory Exam Respiratory Exam: Decreased Breath Sounds, Prolonged Expiratory Phase, Rhonchi, Wheezes - Cardiovascular Exam Cardiovascular Exam: REGULAR RHYTHM - GI/Abdominal Exam GI & Abdominal Exam: Distended, Soft - Rectal Exam Rectal Exam: Deferred - Exam Exam: NORMAL INSPECTION - Extremities Exam Extremities Exam: absent: Pedal Edema - Back Exam Back Exam: absent: CVA tenderness (L), CVA tenderness (R) - Neurological Exam Neurological Exam: Alert, Awake, CN II-XII Intact - Psychiatric Exam Psychiatric exam: Depressed Assessment and Plan (1) Bronchiectasis with (acute) exacerbation Status: Acute (2) Pleural effusion Status: Acute (3) Pneumonia Status: Acute - Assessment and Plan (Free Text) Assessment: refusing FOB cont empiric IV antibiotics
--- NOTE | 2018-08-24 22:48 | CARD ---
APPROVED REPORT Date of service: 08/22/2018 EKG Measurement Heart [id number] <Conclusion> Sinus tachycardia Nonspecific T wave abnormality Abnormal ECG
[2018-08-25] MEDS: Piperacillin/Tazobact 3.375 GM in Sodium Chloride 100 ML IVPB SCH ×5 (00:38→17:54)
[2018-08-25] MEDS: Acetylcysteine 20% Inhal Soln (4ml) INH SCH ×2 (01:27→19:32)
[2018-08-25] MEDS: Albuterol-Ipratrop 3 mg / 0.5 (3 ml) UD INH PRN (01:27)
[2018-08-25 07:36] LABS: BASO % 0.3 % (0.0-2.0); EOS % 0.1 % (0.0-4.0); HEMOGLOBIN 11.6 g/dL (11.0-16.0); LYMPH # 2.1 K/uL (1.0-4.3); LYMPH % 16.4 % (20.0-40.0); MEAN CELL VOLUME 79.1 fL (81.0-99.0); MEAN CORPUSCULAR HEMOGLOBIN 25.2 pg (27.0-31.0); MEAN CORPUSCULAR HGB CONC 31.9 g/dL (33.0-37.0); MEAN PLATELET VOLUME 9.5 fL (7.2-11.7); MONO # 1.5 K/uL (0.0-0.8); MONO % 11.3 % (0.0-10.0); NEUT # 9.3 K/uL (1.8-7.0); NEUT % 71.9 % (50.0-75.0); NRBC % 0.1 % (0.0-2.0); RBC 4.58 Mil/uL (3.80-5.20); RED CELL DISTRIBUTION WIDTH 15.5 % (11.5-14.5); WHITE BLOOD COUNT 12.9 K/uL (4.8-10.8)
[2018-08-25 07:53] LABS: ALB/GLOB RATIO 0.9 (1.0-2.1); ALBUMIN 3.2 g/dL (3.5-5.0); ALT/SGPT 7 U/L (9-52); AST/SGOT 31 U/L (14-36); BLOOD UREA NITROGEN 11 mg/dL (7-17); GFR NON-AFRICAN AMERICAN > 60
--- NOTE | 2018-08-25 09:05 | CP.PCM.PN ---
<Lester Rooney - Last Filed: 08/25/18 18:37> Subjective - Date & Time of Evaluation Date of Evaluation: 08/25/18 Time of Evaluation: 07:50 - Subjective Subjective: Medicine progress not for Dr. Khan Pt seen and examined at bedside. Pt is resting comfortably. Cough continues to be nonproductive with congestion. Dislikes hospital diet. She continues to ambulate well in the room. Denies fever, chills, chest pain, sob, abdominal pain, n/v/d, hematochezia, melena, hemoptysis, hematemasis, any signs of bleeding. Objective - Vital Signs/Intake and Output Vital Signs (last 24 hours): Temp Pulse Resp BP Pulse Ox 97.6 F 105 H 20 124/76 100 08/25/18 07:10 08/25/18 08:42 08/25/18 07:10 08/25/18 07:10 08/25/18 07:10 - Medications Medications: Current Medications Acetylcysteine (Acetylcysteine 20%) 4 ml INH RQ6 [facility]NA Last Admin: 08/25/18 01:27 Dose: 4 ml Albuterol/Ipratropium (Duoneb 3 Mg/0.5 Mg (3 Ml) Ud) 3 ml INH RQ4 PRN PRN Reason: Shortness of Breath Last Admin: 08/25/18 01:27 Dose: 3 ml Heparin Sodium (Porcine) (Heparin) 5,000 units SC Q8 [facility] Last Admin: 08/25/18 05:56 Dose: Not Given Piperacillin Sod/Tazobactam (Sod 3.375 gm/ Sodium Chloride) 100 mls @ 200 mls/hr IVPB Q6H [facility]; Protocol Last Admin: 08/25/18 05:57 Dose: 200 mls/hr Vancomycin HCl 1 gm/ Sodium (Chloride) 250 mls @ 166.7 mls/hr IVPB Q12H [facility]; Protocol Methylprednisolone (Solu-Medrol) 40 mg IVP Q12 [facility] Last Admin: 08/24/18 21:58 Dose: 40 mg Multivitamins (Hexavitamin) 1 tab PO DAILY [facility] Last Admin: 08/24/18 09:11 Dose: Not Given Pantoprazole Sodium (Protonix Ec Tab) 20 mg PO DAILY [facility] Last Admin: 03/20/19 09:11 Dose: Not Given - Labs Labs: 08/25/18 07:25 08/25/18 07:25 PT 12.4 SECONDS (9.7-12.2) H 08/22/18 14:23 INR 1.1 08/22/18 14:23 APTT 30 SECONDS (21-34) 08/22/18 14:23 - Additional Findings Additional findings: - Constitutional Appears: Non-toxic, No Acute Distress, Cachectic - Head Exam Head Exam: ATRAUMATIC, NORMAL INSPECTION - Eye Exam Eye Exam: EOMI, Normal appearance - ENT Exam ENT Exam: Mucous Membranes Moist - Respiratory Exam Respiratory Exam: Rales (bilaterally), Rhonchi (bilaterally), NORMAL BREATHING PATTERN. absent: Wheezes, Respiratory Distress, Stridor - Cardiovascular Exam Cardiovascular Exam: REGULAR RHYTHM, +S1, +S2. absent: Tachycardia - GI/Abdominal Exam GI & Abdominal Exam: Soft, Normal Bowel Sounds. absent: Distended, Firm, Guarding, Rigid, Tenderness, Organomegaly - Extremities Exam Extremities Exam: Normal Inspection. absent: Calf Tenderness - Back Exam Back Exam: NORMAL INSPECTION. absent: CVA tenderness (L), CVA tenderness (R) - Neurological Exam Neurological Exam: Alert, Awake - Psychiatric Exam Psychiatric exam: Normal Affect, Normal Mood - Skin Skin Exam: Dry, Normal Color, Warm Assessment and Plan - Assessment and Plan (Free Text) Assessment: 68yo F with PMH asthma admitted for cystic bronchiectasis, history of weight loss. Plan: Cystic Bronchiectasis, with acute exacerbation Bilateral Pneumonia, L pleural effusion - CXR (08/22): extensive bilateral pulmonary infiltrate. likely bilateral pneumonia. small moderate left pleural effusion. - CT Chest A/P (08/22): cystic bronchiectasis with L sided effusion, mild fatty hepatic infiltration, gastric wall thickening, distended urinary bladder - Leukocytosis increased from 12.9 to 16.6, likely due to CCS treatment. Pt afebrile during hospitalization. - ABG on admission is normal - Influenza negative - HIV negative, Hepatitis panel negative - Duonebs INH rQ4 - Solumedrol 40mg IVP q12h - Zosyn 3.375gm IVPB q6 (started 08/22) - Vancomycin 750mg IVPB q12 (started 08/22) - O2 via NC prn - ID consulted: Dr. Land - Pulm consulted: Dr. Mckay CAT scan of the chest consistent with bilateral bronchiectasis with fibrosis Rule out HEMANT infection Continue isolation Nebulizer treatment and Mucomyst Broad-spectrum antibiotics - Blood culture x 2 negative for growth x 3 days - Airborne precautions - TB (quantiferon) is indeterminate - AFB sputum culture x1 prelim shows no AFB - f/u AFB x2 - Legionella Ag is negative - F/u strep pneumon, mycoplasma pneumoniae, Alpha-1 antitrypsin level, Sputum Cx - agreeable to bronchoscopy if son is able to be present up to anesthesia administration D-dimer elevation - DDimer noted to be 993 in the ED - Pt's ABG was normal, satting well on room air, resolution of sob - Pt refused venous doppler studies in bilateral lower extremities. I informed her that the ddimer elevation may mean that she has a blood clot, and there is a possibility of it traveling to her lungs and could potentially kill her. Pt relays understanding, but adamantly refuses at this time. She states that she may change her mind. - continues to refuse doppler study today. Reiterated risks and benefits, but pt adamant. Cachectia 30lb weight loss in 2 months - Diet consult - TSH is 0.28, FT4 is 1.94 Subclinical hyperthyroidism, no indication for treatment at this time. Outpatient management PPx - DVT: Heparin 5000u SC q8 - GI: Protonix 20mg po daily - Diet: HHD, MVI - PT eval shows dependent and steady gait. - Palliative Care consulted: Carol Ann. See note. Airborne Isolation Pt is full code. She reports that her sons will make decisions for her in case she is incapacitated. <Ángel Khan - Last Filed: 08/27/18 17:12> Objective - Vital Signs/Intake and Output Vital Signs (last 24 hours): Temp Pulse Resp BP Pulse Ox 97.5 F L 92 H 18 143/84 100 08/27/18 15:00 08/27/18 15:00 08/27/18 15:00 08/27/18 15:00 08/27/18 15:00 Intake and Output: 08/27/18 08/27/18 06:59 18:59 Intake Total 340 900 Balance 340 900 - Medications Medications: Current Medications Acetylcysteine (Acetylcysteine 20%) 4 ml INH RQ6 TANA Last Admin: 08/27/18 14:00 Dose: Not Given Albuterol/Ipratropium (Duoneb 3 Mg/0.5 Mg (3 Ml) Ud) 3 ml INH RQ4 PRN PRN Reason: Shortness of Breath Last Admin: 08/27/18 07:45 Dose: 3 ml Heparin Sodium (Porcine) (Heparin) 5,000 units SC Q8 [facility] Last Admin: 08/27/18 16:23 Dose: Not Given Piperacillin Sod/Tazobactam (Sod 3.375 gm/ Sodium Chloride) 100 mls @ 200 mls/hr IVPB Q6H [facility]; Protocol Last Admin: 08/27/18 12:08 Dose: 200 mls/hr Methylprednisolone (Solu-Medrol) 40 mg IVP Q12 [facility] Last Admin: 08/27/18 09:42 Dose: 40 mg Multivitamins (Hexavitamin) 1 tab PO DAILY [facility] Last Admin: 08/27/18 09:42 Dose: 1 tab Pantoprazole Sodium (Protonix Ec Tab) 20 mg PO DAILY [facility] Last Admin: 08/27/18 09:42 Dose: 20 mg - Labs Labs: 08/27/18 07:16 08/27/18 07:16 PT 12.4 SECONDS (9.7-12.2) H 08/22/18 14:23 INR 1.1 08/22/18 14:23 APTT 30 SECONDS (21-34) 08/22/18 14:23 Attending/Attestation - Attestation I have personally seen and examined this patient.: Yes I have fully participated in the care of the patient.: Yes I have reviewed all pertinent clinical information, including history, physical exam and plan: Yes
[2018-08-25] MEDS: Multiple Vitamins Tab PO SCH (10:27)
[2018-08-25] MEDS: Pantoprazole 20 mg EC Tab PO SCH (10:27)
[2018-08-25] MEDS: MethylPREDNISolone 40 mg Vial IVP SCH ×2 (10:27→21:29)
--- NOTE | 2018-08-25 14:53 | CP.PCM.PN ---
Subjective - Date & Time of Evaluation Date of Evaluation: 08/25/18 Time of Evaluation: 01:00 - Subjective Subjective: Patient examined in bed. Translation used. Patient looks worried. She admits not being able to sleep last night. Breath sounds are congested, there is moist cough, breathing is shallow. Bronchoscope diagnostic procedure discussed again. Patient was still undecided. I reinforced teaching about the severity of condition and its progressive nature. Patient remained undecided and wanted to talk to her son first. Objective - Vital Signs/Intake and Output Vital Signs (last 24 hours): Temp Pulse Resp BP Pulse Ox 97.6 F 105 H 20 124/76 100 08/25/18 07:10 08/25/18 08:42 08/25/18 07:10 08/25/18 07:10 08/25/18 07:10 - Medications Medications: Current Medications Acetylcysteine (Acetylcysteine 20%) 4 ml INH RQ6 TANA Last Admin: 08/25/18 01:27 Dose: 4 ml Albuterol/Ipratropium (Duoneb 3 Mg/0.5 Mg (3 Ml) Ud) 3 ml INH RQ4 PRN PRN Reason: Shortness of Breath Last Admin: 08/25/18 01:27 Dose: 3 ml Heparin Sodium (Porcine) (Heparin) 5,000 units SC Q8 TANA Last Admin: 08/25/18 05:56 Dose: Not Given Piperacillin Sod/Tazobactam (Sod 3.375 gm/ Sodium Chloride) 100 mls @ 200 mls/hr IVPB Q6H [facility]; Protocol Last Admin: 08/25/18 12:51 Dose: 200 mls/hr Vancomycin HCl 1 gm/ Sodium (Chloride) 250 mls @ 166.7 mls/hr IVPB Q12H [facility]; Protocol Last Admin: 08/25/18 10:27 Dose: 166.7 mls/hr Methylprednisolone (Solu-Medrol) 40 mg IVP Q12 [facility]NA Last Admin: 08/25/18 10:27 Dose: 40 mg Multivitamins (Hexavitamin) 1 tab PO DAILY TANA Last Admin: 08/25/18 10:27 Dose: 1 tab Pantoprazole Sodium (Protonix Ec Tab) 20 mg PO DAILY [facility]NA Last Admin: 08/25/18 10:27 Dose: 20 mg - Labs Labs: 08/25/18 07:25 08/25/18 07:25 PT 12.4 SECONDS (9.7-12.2) H 08/22/18 14:23 INR 1.1 08/22/18 14:23 APTT 30 SECONDS (21-34) 08/22/18 14:23 - Constitutional Appears: Chronically Ill - Head Exam Head Exam: ATRAUMATIC, NORMAL INSPECTION, NORMOCEPHALIC - Eye Exam Eye Exam: EOMI, Normal appearance, PERRL Pupil Exam: NORMAL ACCOMODATION, PERRL - ENT Exam ENT Exam: Mucous Membranes Dry - Neck Exam Neck Exam: Full ROM, Normal Inspection - Respiratory Exam Respiratory Exam: Accessory Muscle Use, Decreased Breath Sounds, Rhonchi - Cardiovascular Exam Cardiovascular Exam: Tachycardia, Irregular Rhythm - GI/Abdominal Exam GI & Abdominal Exam: Soft, Normal Bowel Sounds - Rectal Exam Rectal Exam: Deferred - Extremities Exam Extremities Exam: Full ROM, Normal Capillary Refill, Normal Inspection - Back Exam Back Exam: NORMAL INSPECTION - Neurological Exam Neurological Exam: Alert, Oriented x3 Neuro motor strength exam: Left Upper Extremity: 2/1, Right Upper Extremity: 2/1, Left Lower Extremity: 2/1, Right Lower Extremity: 2/1 - Psychiatric Exam Psychiatric exam: Anxious - Skin Skin Exam: Dry, Intact, Pallor, Warm Assessment and Plan - Assessment and Plan (Free Text) Assessment: Patient's son Javi came in at 1pm for family meeting. I reviewed patient's condition and proposed diagnostic studies. Javi said that his mother agreed with procedure as long as he is at bed side until she gets under anesthesia. Impression * Pulmonary fibrosis * Pneumonia * productive cough * Insomina due to diagnosis * Mild respiratory distress * Anticipatory anxiety * Patient agreed with bronchosopy after being supported by her son Javi Suggestion * O2 supplement * Bed rest to preserve energy * Reassure patient of her safety * Consider Ambien 5 mg Q HS for sleep Palliative care will remain on board and support this patient. Advance care planing 35 min.
--- NOTE | 2018-08-25 17:53 | CP.PCM.PN ---
Subjective - Date & Time of Evaluation Date of Evaluation: 08/25/18 Time of Evaluation: 11:00 - Subjective Subjective: Patient seen and examined at bedside. Bronchoscopy again discussed with patient, first with shactor and then with her son Pavel ([phone]) when he arrives. Patient agrees to bronchoscopy as long as her son can be present, to which her son agrees. Afebrile. Physical Exam: General: Awake, alert and oriented; not in any distress Cardio: Regular rhythm and rate; +S1 +S2; no murmur Pulm: Rales, rhonchi, wheezes Abd: Soft, non-distended Assessment and Plan:? Bronchiectasis with (acute) exacerbation - R/O HEMANT infection - Fiberoptic bronchoscopy w/ biopsy and lavage -- Patient agrees to procedure as long as her son can be present - Continue isolation - Nebulizer treatment & Mucomyst - Broad-spectrum antibiotics Pleural Effusion Objective - Vital Signs/Intake and Output Vital Signs (last 24 hours): Temp Pulse Resp BP Pulse Ox 97.7 F 110 H 18 146/92 H 96 08/25/18 15:00 08/25/18 15:00 08/25/18 15:00 08/25/18 15:00 08/25/18 15:00 - Medications Medications: Current Medications Acetylcysteine (Acetylcysteine 20%) 4 ml INH RQ6 TANA Last Admin: 08/25/18 01:27 Dose: 4 ml Albuterol/Ipratropium (Duoneb 3 Mg/0.5 Mg (3 Ml) Ud) 3 ml INH RQ4 PRN PRN Reason: Shortness of Breath Last Admin: 08/25/18 01:27 Dose: 3 ml Heparin Sodium (Porcine) (Heparin) 5,000 units SC Q8 TANA Last Admin: 08/25/18 05:56 Dose: Not Given Piperacillin Sod/Tazobactam (Sod 3.375 gm/ Sodium Chloride) 100 mls @ 200 mls/hr IVPB Q6H TANA; Protocol Last Admin: 08/25/18 17:23 Dose: 200 mls/hr Vancomycin HCl 1 gm/ Sodium (Chloride) 250 mls @ 166.7 mls/hr IVPB Q12H TANA; Protocol Last Admin: 08/25/18 10:27 Dose: 166.7 mls/hr Methylprednisolone (Solu-Medrol) 40 mg IVP Q12 [facility] Last Admin: 08/25/18 10:27 Dose: 40 mg Multivitamins (Hexavitamin) 1 tab PO DAILY TANA Last Admin: 08/25/18 10:27 Dose: 1 tab Pantoprazole Sodium (Protonix Ec Tab) 20 mg PO DAILY [facility] Last Admin: 08/25/18 10:27 Dose: 20 mg - Labs Labs: 08/25/18 07:25 08/25/18 07:25 PT 12.4 SECONDS (9.7-12.2) H 08/22/18 14:23 INR 1.1 08/22/18 14:23 APTT 30 SECONDS (21-34) 08/22/18 14:23 Assessment and Plan (1) Bronchiectasis with (acute) exacerbation Status: Acute (2) Pleural effusion Status: Acute
--- NOTE | 2018-08-25 22:48 | CP.PCM.PN ---
Subjective - Date & Time of Evaluation Date of Evaluation: 08/25/18 Time of Evaluation: 07:00 - Subjective Subjective: events noted for possible bronchoscopy 'afebrile wbc trending down Objective - Vital Signs/Intake and Output Vital Signs (last 24 hours): Temp Pulse Resp BP Pulse Ox 97.7 F 110 H 18 146/92 H 96 08/25/18 15:00 08/25/18 16:00 08/25/18 15:00 08/25/18 15:00 08/25/18 15:00 - Medications Medications: Current Medications Acetylcysteine (Acetylcysteine 20%) 4 ml INH RQ6 TANA Last Admin: 08/25/18 19:32 Dose: Not Given Albuterol/Ipratropium (Duoneb 3 Mg/0.5 Mg (3 Ml) Ud) 3 ml INH RQ4 PRN PRN Reason: Shortness of Breath Last Admin: 08/25/18 01:27 Dose: 3 ml Heparin Sodium (Porcine) (Heparin) 5,000 units SC Q8 TANA Last Admin: 08/25/18 21:06 Dose: Not Given Piperacillin Sod/Tazobactam (Sod 3.375 gm/ Sodium Chloride) 100 mls @ 200 mls/hr IVPB Q6H [facility]; Protocol Last Admin: 08/25/18 17:54 Dose: Not Given Vancomycin HCl 1 gm/ Sodium (Chloride) 250 mls @ 166.7 mls/hr IVPB Q12H [facility]; Protocol Last Admin: 08/25/18 21:30 Dose: 166.7 mls/hr Methylprednisolone (Solu-Medrol) 40 mg IVP Q12 [facility] Last Admin: 08/25/18 21:29 Dose: 40 mg Multivitamins (Hexavitamin) 1 tab PO DAILY TANA Last Admin: 08/25/18 10:27 Dose: 1 tab Pantoprazole Sodium (Protonix Ec Tab) 20 mg PO DAILY [facility]NA Last Admin: 08/25/18 10:27 Dose: 20 mg - Labs Labs: 08/25/18 07:25 08/25/18 07:25 PT 12.4 SECONDS (9.7-12.2) H 08/22/18 14:23 INR 1.1 08/22/18 14:23 APTT 30 SECONDS (21-34) 08/22/18 14:23 - Constitutional Appears: Cachectic, Chronically Ill - Head Exam Head Exam: NORMOCEPHALIC - Eye Exam Eye Exam: absent: Scleral icterus - ENT Exam ENT Exam: Mucous Membranes Dry - Neck Exam Neck Exam: absent: Lymphadenopathy - Respiratory Exam Respiratory Exam: Decreased Breath Sounds - Cardiovascular Exam Cardiovascular Exam: REGULAR RHYTHM - GI/Abdominal Exam GI & Abdominal Exam: Distended, Soft - Rectal Exam Rectal Exam: Deferred - Exam Exam: NORMAL INSPECTION - Back Exam Back Exam: absent: CVA tenderness (L), CVA tenderness (R) - Neurological Exam Neurological Exam: Alert, Awake Assessment and Plan (1) Bronchiectasis with (acute) exacerbation Status: Acute (2) Pleural effusion Status: Acute (3) Pneumonia Status: Acute - Assessment and Plan (Free Text) Assessment: AFB x 1 neg renewed IV rx
[2018-08-26] MEDS: Piperacillin/Tazobact 3.375 GM in Sodium Chloride 100 ML IVPB SCH ×4 (00:15→19:27)
--- NOTE | 2018-08-26 07:54 | CP.PCM.PN ---
<Lester Rooney - Last Filed: 08/26/18 17:23> Subjective - Date & Time of Evaluation Date of Evaluation: 08/26/18 Time of Evaluation: 11:00 - Subjective Subjective: Medicine progress note for Dr. Khan Pt seen and examined at bedside. Pt with 9 beats of vtach overnight, asymptomatic. Pt is resting comfortably. Cough continues to be nonproductive with respiratory congestion. She continues to ambulate well in the room. Denies fever, chills, chest pain, sob, abdominal pain, n/v/d, hematochezia, melena, hemoptysis, hematemasis, any signs of bleeding. My attending and I spoke with the pt while on the phone with her son Javi. Pt anxious, but agrees to echocardiogram and venous doppler studies. Objective - Vital Signs/Intake and Output Vital Signs (last 24 hours): Temp Pulse Resp BP Pulse Ox 97.7 F 89 18 156/104 H 100 08/25/18 23:30 08/26/18 01:00 08/25/18 23:30 08/25/18 23:30 08/25/18 23:30 - Medications Medications: Current Medications Acetylcysteine (Acetylcysteine 20%) 4 ml INH RQ6 TANA Last Admin: 08/25/18 19:32 Dose: Not Given Albuterol/Ipratropium (Duoneb 3 Mg/0.5 Mg (3 Ml) Ud) 3 ml INH RQ4 PRN PRN Reason: Shortness of Breath Last Admin: 08/25/18 01:27 Dose: 3 ml Heparin Sodium (Porcine) (Heparin) 5,000 units SC Q8 [facility]NA Last Admin: 08/26/18 06:27 Dose: Not Given Piperacillin Sod/Tazobactam (Sod 3.375 gm/ Sodium Chloride) 100 mls @ 200 mls/hr IVPB Q6H [facility]; Protocol Last Admin: 08/26/18 06:27 Dose: 200 mls/hr Vancomycin HCl 1 gm/ Sodium (Chloride) 250 mls @ 166.7 mls/hr IVPB Q12H [facility]NA; Protocol Last Admin: 08/25/18 21:30 Dose: 166.7 mls/hr Methylprednisolone (Solu-Medrol) 40 mg IVP Q12 [facility]NA Last Admin: 08/25/18 21:29 Dose: 40 mg Multivitamins (Hexavitamin) 1 tab PO DAILY [facility] Last Admin: 08/25/18 10:27 Dose: 1 tab Pantoprazole Sodium (Protonix Ec Tab) 20 mg PO DAILY [facility] Last Admin: 08/25/18 10:27 Dose: 20 mg - Labs Labs: 08/25/18 07:25 08/25/18 07:25 PT 12.4 SECONDS (9.7-12.2) H 08/22/18 14:23 INR 1.1 08/22/18 14:23 APTT 30 SECONDS (21-34) 08/22/18 14:23 - Additional Findings Additional findings: - Constitutional Appears: Non-toxic, No Acute Distress, Cachectic - Head Exam Head Exam: ATRAUMATIC, NORMAL INSPECTION - Eye Exam Eye Exam: EOMI, Normal appearance - ENT Exam ENT Exam: Mucous Membranes Moist - Respiratory Exam Respiratory Exam: Rales (bilaterally), Rhonchi (bilaterally), NORMAL BREATHING PATTERN. absent: Wheezes, Respiratory Distress, Stridor - Cardiovascular Exam Cardiovascular Exam: REGULAR RHYTHM, +S1, +S2. absent: Tachycardia - GI/Abdominal Exam GI & Abdominal Exam: Soft, Normal Bowel Sounds. absent: Distended, Firm, Guarding, Rigid, Tenderness, Organomegaly - Extremities Exam Extremities Exam: Normal Inspection. absent: Calf Tenderness - Back Exam Back Exam: NORMAL INSPECTION. absent: CVA tenderness (L), CVA tenderness (R) - Neurological Exam Neurological Exam: Alert, Awake - Psychiatric Exam Psychiatric exam: Normal Affect, Normal Mood - Skin Skin Exam: Dry, Normal Color, Warm Assessment and Plan - Assessment and Plan (Free Text) Assessment: 68yo F with PMH asthma admitted for cystic bronchiectasis, history of weight loss. Plan: Cystic Bronchiectasis, with acute exacerbation Bilateral Pneumonia, L pleural effusion - CXR (08/22): extensive bilateral pulmonary infiltrate. likely bilateral pneumonia. small moderate left pleural effusion. - CT Chest A/P (08/22): cystic bronchiectasis with L sided effusion, mild fatty hepatic infiltration, gastric wall thickening, distended urinary bladder - Leukocytosis increased from 12.9 to 16.6, likely due to CCS treatment. Pt afebrile during hospitalization. - ABG on admission is normal - Influenza negative - HIV negative, Hepatitis panel negative - TB (quantiferon) is indeterminate - AFB sputum culture x2 prelim shows no AFB - f/u AFB x1 - Legionella Ag is negative, [id number] is high at 217 - aspergillus Ag is not detected - Duonebs INH rQ4 - Solumedrol 40mg IVP q12h - Zosyn 3.375gm IVPB q6 (started 08/22) - Vancomycin 750mg IVPB q12 (started 08/22) - O2 via NC prn - ID consulted: Dr. Land - Pulm consulted: Dr. Bashir CAT scan of the chest consistent with bilateral bronchiectasis with fibrosis Rule out HEMANT infection Continue isolation Nebulizer treatment and Mucomyst Broad-spectrum antibiotics Agreeable to bronchoscopy, planned for Wednesday, 08/29 - Blood culture x 2 negative for growth x 4 days - Airborne precautions - F/u strep pneumon, mycoplasma pneumoniae, Sputum Cx D-dimer elevation - DDimer noted to be 993 in the ED - Pt's ABG was normal, satting well on room air, resolution of sob - Venous doppler to bilateral lower extremities prelim read is normal F/u official read. Vtach, asymptomatic - currently not tachycardic - 9 beats of Vtach on the monitor 08/25 - F/u Echocardiogram - continue to monitor [place] 30lb weight loss in 2 months - Diet consult - TSH is 0.28, FT4 is 1.94 Subclinical hyperthyroidism, no indication for treatment at this time. Outpatient management PPx - DVT: Heparin 5000u SC q8 - GI: Protonix 20mg po daily - Diet: HHD, MVI - PT eval shows dependent and steady gait. - Palliative Care consulted: Carol Ann. See note. Airborne Isolation Pt is full code. She reports that her sons will make decisions for her in case she is incapacitated. Dispo: Airborne isolation will be discontinued when AFB sputum x3 is negative, so far it is negative x2. Pt with episode of vtach, f/u echocardiogram. Pt to have bronchoscopy Wednesday, 08/31 <Ángel Khan - Last Filed: 08/27/18 17:10> Objective - Vital Signs/Intake and Output Vital Signs (last 24 hours): Temp Pulse Resp BP Pulse Ox 97.5 F L 92 H 18 143/84 100 08/27/18 15:00 08/27/18 15:00 08/27/18 15:00 08/27/18 15:00 08/27/18 15:00 Intake and Output: 08/27/18 08/27/18 06:59 18:59 Intake Total 340 900 Balance 340 900 - Medications Medications: Current Medications Acetylcysteine (Acetylcysteine 20%) 4 ml INH RQ6 TANA Last Admin: 08/27/18 14:00 Dose: Not Given Albuterol/Ipratropium (Duoneb 3 Mg/0.5 Mg (3 Ml) Ud) 3 ml INH RQ4 PRN PRN Reason: Shortness of Breath Last Admin: 08/27/18 07:45 Dose: 3 ml Heparin Sodium (Porcine) (Heparin) 5,000 units SC Q8 [facility]NA Last Admin: 08/27/18 16:23 Dose: Not Given Piperacillin Sod/Tazobactam (Sod 3.375 gm/ Sodium Chloride) 100 mls @ 200 mls/hr IVPB Q6H [facility]; Protocol Last Admin: 08/27/18 12:08 Dose: 200 mls/hr Methylprednisolone (Solu-Medrol) 40 mg IVP Q12 [facility] Last Admin: 08/27/18 09:42 Dose: 40 mg Multivitamins (Hexavitamin) 1 tab PO DAILY TANA Last Admin: 08/27/18 09:42 Dose: 1 tab Pantoprazole Sodium (Protonix Ec Tab) 20 mg PO DAILY [facility]NA Last Admin: 08/27/18 09:42 Dose: 20 mg - Labs Labs: 08/27/18 07:16 08/27/18 07:16 PT 12.4 SECONDS (9.7-12.2) H 08/22/18 14:23 INR 1.1 08/22/18 14:23 APTT 30 SECONDS (21-34) 08/22/18 14:23 Attending/Attestation - Attestation I have personally seen and examined this patient.: Yes I have fully participated in the care of the patient.: Yes I have reviewed all pertinent clinical information, including history, physical exam and plan: Yes Notes (Text): spoke to her son. patient agrees for V doppler and echo after long discussion Bronchoscope on Wednesday Continue zosyn and solumedrol Her tachycardia and sob is getting better,has diffuse bilat rhonchi 2 sputum negative for AFB continue air born isolation
[2018-08-26 07:59] LABS: BASO % 0.2 % (0.0-2.0); HEMOGLOBIN 12.2 g/dL (11.0-16.0); LYMPH # 1.7 K/uL (1.0-4.3); LYMPH % 11.4 % (20.0-40.0); MEAN CELL VOLUME 77.7 fL (81.0-99.0); MEAN CORPUSCULAR HEMOGLOBIN 25.1 pg (27.0-31.0); MEAN CORPUSCULAR HGB CONC 32.4 g/dL (33.0-37.0); MEAN PLATELET VOLUME 9.3 fL (7.2-11.7); MONO # 1.3 K/uL (0.0-0.8); MONO % 9.2 % (0.0-10.0); NEUT # 11.6 K/uL (1.8-7.0); NEUT % 79.2 % (50.0-75.0); NRBC % 0.1 % (0.0-2.0); RBC 4.85 Mil/uL (3.80-5.20); RED CELL DISTRIBUTION WIDTH 15.4 % (11.5-14.5); WHITE BLOOD COUNT 14.6 K/uL (4.8-10.8)
[2018-08-26] MEDS: Acetylcysteine 20% Inhal Soln (4ml) INH SCH ×3 (08:00→19:51)
[2018-08-26 08:23] LABS: ALB/GLOB RATIO 0.9 (1.0-2.1); ALBUMIN 3.3 g/dL (3.5-5.0); ALT/SGPT 10 U/L (9-52); AST/SGOT 25 U/L (14-36); BLOOD UREA NITROGEN 10 mg/dL (7-17); CALCIUM 9.4 mg/dl (8.6-10.4); GFR NON-AFRICAN AMERICAN > 60
[2018-08-26] MEDS: Pantoprazole 20 mg EC Tab PO SCH (10:34)
[2018-08-26] MEDS: Multiple Vitamins Tab PO SCH (10:34)
[2018-08-26] MEDS: MethylPREDNISolone 40 mg Vial IVP SCH ×2 (10:35→21:39)
--- NOTE | 2018-08-26 15:14 | CP.PCM.PN ---
Subjective - Date & Time of Evaluation Date of Evaluation: 08/26/18 Time of Evaluation: 10:00 - Subjective Subjective: Patient seen and examined at bedside. Patient states she feels well today. She already ate this morning so she will have her bronchoscopy on Wednesday. Afebrile. Physical Exam: General: Awake, alert and oriented; not in any distress Cardio: Regular rhythm and rate; +S1 +S2; no murmur Pulm: Rales, rhonchi, wheezes Abd: Soft, non-distended Assessment and Plan:? Bronchiectasis with (acute) exacerbation - R/O HEMANT infection - Fiberoptic bronchoscopy w/ biopsy and lavage -- Planned for Wednesday - Continue isolation - Nebulizer treatment & Mucomyst - Broad-spectrum antibiotics Pleural Effusion Objective - Vital Signs/Intake and Output Vital Signs (last 24 hours): Temp Pulse Resp BP Pulse Ox 97.5 F L 128 H 20 129/87 98 08/26/18 07:00 08/26/18 07:00 08/26/18 07:00 08/26/18 07:00 08/26/18 07:00 - Medications Medications: Current Medications Acetylcysteine (Acetylcysteine 20%) 4 ml INH RQ6 TANA Last Admin: 08/26/18 13:32 Dose: Not Given Albuterol/Ipratropium (Duoneb 3 Mg/0.5 Mg (3 Ml) Ud) 3 ml INH RQ4 PRN PRN Reason: Shortness of Breath Last Admin: 08/25/18 01:27 Dose: 3 ml Heparin Sodium (Porcine) (Heparin) 5,000 units SC Q8 [facility] Last Admin: 08/26/18 14:16 Dose: Not Given Piperacillin Sod/Tazobactam (Sod 3.375 gm/ Sodium Chloride) 100 mls @ 200 mls/hr IVPB Q6H [facility]; Protocol Last Admin: 08/26/18 14:24 Dose: 200 mls/hr Vancomycin HCl 1 gm/ Sodium (Chloride) 250 mls @ 166.7 mls/hr IVPB Q12H [facility]; Protocol Last Admin: 08/26/18 10:36 Dose: 166.7 mls/hr Methylprednisolone (Solu-Medrol) 40 mg IVP Q12 [facility] Last Admin: 08/26/18 10:35 Dose: 40 mg Multivitamins (Hexavitamin) 1 tab PO DAILY [facility] Last Admin: 08/26/18 10:34 Dose: 1 tab Pantoprazole Sodium (Protonix Ec Tab) 20 mg PO DAILY [facility] Last Admin: 08/26/18 10:34 Dose: 20 mg - Labs Labs: 08/26/18 07:52 08/26/18 07:52 PT 12.4 SECONDS (9.7-12.2) H 08/22/18 14:23 INR 1.1 08/22/18 14:23 APTT 30 SECONDS (21-34) 08/22/18 14:23 Assessment and Plan (1) Bronchiectasis with (acute) exacerbation Status: Acute (2) Pleural effusion Status: Acute
[2018-08-27] MEDS: Piperacillin/Tazobact 3.375 GM in Sodium Chloride 100 ML IVPB SCH ×4 (00:04→17:46)
--- NOTE | 2018-08-27 00:53 | CP.PCM.PN ---
<Italia Guevara - Last Filed: 08/27/18 01:09> Subjective - Date & Time of Evaluation Date of Evaluation: 08/27/18 Time of Evaluation: 05:00 - Subjective Subjective: PGY-1 Medicine Progress Note for Dr. Khan Patient was seen and examined at bedside in no acute distress. Patient reports persistence of dry cough. Ambulates well in room, Denies fever, chills, chest pain, SOB, abdominal pain, n/v/c/d or urinary complaints. Objective - Vital Signs/Intake and Output Vital Signs (last 24 hours): Temp Pulse Resp BP Pulse Ox 97.2 F L 89 20 125/78 99 08/26/18 23:32 08/26/18 23:32 08/26/18 23:32 08/26/18 16:00 08/26/18 23:32 - Medications Medications: Current Medications Acetylcysteine (Acetylcysteine 20%) 4 ml INH RQ6 TANA Last Admin: 08/26/18 19:51 Dose: Not Given Albuterol/Ipratropium (Duoneb 3 Mg/0.5 Mg (3 Ml) Ud) 3 ml INH RQ4 PRN PRN Reason: Shortness of Breath Last Admin: 08/25/18 01:27 Dose: 3 ml Heparin Sodium (Porcine) (Heparin) 5,000 units SC Q8 TANA Last Admin: 08/26/18 21:37 Dose: Not Given Piperacillin Sod/Tazobactam (Sod 3.375 gm/ Sodium Chloride) 100 mls @ 200 mls/hr IVPB Q6H TANA; Protocol Last Admin: 08/27/18 00:04 Dose: 200 mls/hr Vancomycin HCl 1 gm/ Sodium (Chloride) 250 mls @ 166.7 mls/hr IVPB Q12H TANA; Protocol Last Admin: 08/26/18 21:39 Dose: 166.7 mls/hr Methylprednisolone (Solu-Medrol) 40 mg IVP Q12 TANA Last Admin: 08/26/18 21:39 Dose: 40 mg Multivitamins (Hexavitamin) 1 tab PO DAILY TANA Last Admin: 08/26/18 10:34 Dose: 1 tab Pantoprazole Sodium (Protonix Ec Tab) 20 mg PO DAILY TANA Last Admin: 08/26/18 10:34 Dose: 20 mg - Labs Labs: 08/26/18 07:52 08/26/18 07:52 PT 12.4 SECONDS (9.7-12.2) H 08/22/18 14:23 INR 1.1 08/22/18 14:23 APTT 30 SECONDS (21-34) 08/22/18 14:23 - Constitutional Appears: No Acute Distress, Cachectic - Head Exam Head Exam: ATRAUMATIC, NORMOCEPHALIC - Eye Exam Eye Exam: EOMI, Normal appearance - ENT Exam ENT Exam: Mucous Membranes Moist - Respiratory Exam Respiratory Exam: Decreased Breath Sounds, Rales, Rhonchi Additional comments: rales and rhonchi throughout with greatly diminished breath sounds on the lower left on NC - Cardiovascular Exam Cardiovascular Exam: REGULAR RHYTHM, +S1, +S2 - GI/Abdominal Exam GI & Abdominal Exam: Soft, Normal Bowel Sounds. absent: Tenderness - Extremities Exam Extremities Exam: Normal Inspection. absent: Calf Tenderness Additional comments: IV access in L hand - Back Exam Back Exam: NORMAL INSPECTION. absent: CVA tenderness (L), CVA tenderness (R) - Neurological Exam Neurological Exam: Alert, Awake, Oriented x3 - Psychiatric Exam Psychiatric exam: Normal Affect, Normal Mood - Skin Skin Exam: Dry, Intact, Normal Color, Warm Assessment and Plan - Assessment and Plan (Free Text) Assessment: 68yo F with PMH asthma admitted for cystic bronchiectasis, history of weight loss. Plan: Cystic Bronchiectasis, with acute exacerbation Bilateral Pneumonia, L pleural effusion - CXR (08/22): extensive bilateral pulmonary infiltrate. likely bilateral pneumonia. small moderate left pleural effusion. - CT Chest A/P (08/22): cystic bronchiectasis with L sided effusion, mild fatty hepatic infiltration, gastric wall thickening, distended urinary bladder - Leukocytosis increased from 12.9 to 16.6, likely due to CCS treatment. Pt afebrile during hospitalization. - ABG on admission is normal - Influenza negative - HIV negative, Hepatitis panel negative - TB (quantiferon) is indeterminate - AFB sputum culture x2 prelim shows no AFB - f/u AFB x1 - Legionella Ag is negative, [id number] is high at 217 - aspergillus Ag is not detected - Duonebs INH rQ4 - Solumedrol 40mg IVP q12h - Zosyn 3.375gm IVPB q6 (started 08/22) - Vancomycin 750mg IVPB q12 (started 08/22) - O2 via NC prn - ID consulted: Dr. Land - Pulm consulted: Dr. Bashir CAT scan of the chest consistent with bilateral bronchiectasis with fibrosis Rule out HEMANT infection Continue isolation Nebulizer treatment and Mucomyst Broad-spectrum antibiotics Agreeable to bronchoscopy, planned for Wednesday, 08/29 - Blood culture x 2 negative for growth x 4 days - Airborne precautions - F/u strep pneumon, mycoplasma pneumoniae, Sputum Cx D-dimer elevation - DDimer noted to be 993 in the ED - Pt's ABG was normal, satting well on room air, resolution of sob - Venous doppler to bilateral lower extremities prelim read is normal F/u official read. Vtach, asymptomatic - currently not tachycardic - 9 beats of Vtach on the monitor 08/25 - F/u Echocardiogram (08/26): pending read - continue to monitor [place] 30lb weight loss in 2 months - Diet consult - TSH is 0.28, FT4 is 1.94 Subclinical hyperthyroidism, no indication for treatment at this time. Outpatient management PPx - DVT: Heparin 5000u SC q8 - GI: Protonix 20mg po daily - Diet: HHD, MVI - PT eval shows dependent and steady gait. - Palliative Care consulted: Carol Ann. See note. Airborne Isolation Pt is full code. She reports that her sons will make decisions for her in case she is incapacitated. Dispo: Airborne isolation will be discontinued when AFB sputum x3 is negative, so far it is negative x2. Pt with episode of vtach, f/u echocardiogram. Pt to have bronchoscopy Wednesday, 08/31 <Ángel Khan - Last Filed: 08/27/18 17:08> Objective - Vital Signs/Intake and Output Vital Signs (last 24 hours): Temp Pulse Resp BP Pulse Ox 97.5 F L 92 H 18 143/84 100 08/27/18 15:00 08/27/18 15:00 08/27/18 15:00 08/27/18 15:00 08/27/18 15:00 Intake and Output: 08/27/18 08/27/18 06:59 18:59 Intake Total 340 900 Balance 340 900 - Medications Medications: Current Medications Acetylcysteine (Acetylcysteine 20%) 4 ml INH RQ6 TANA Last Admin: 08/27/18 14:00 Dose: Not Given Albuterol/Ipratropium (Duoneb 3 Mg/0.5 Mg (3 Ml) Ud) 3 ml INH RQ4 PRN PRN Reason: Shortness of Breath Last Admin: 08/27/18 07:45 Dose: 3 ml Heparin Sodium (Porcine) (Heparin) 5,000 units SC Q8 TANA Last Admin: 08/27/18 16:23 Dose: Not Given Piperacillin Sod/Tazobactam (Sod 3.375 gm/ Sodium Chloride) 100 mls @ 200 mls/hr IVPB Q6H TANA; Protocol Last Admin: 08/27/18 12:08 Dose: 200 mls/hr Methylprednisolone (Solu-Medrol) 40 mg IVP Q12 TANA Last Admin: 08/27/18 09:42 Dose: 40 mg Multivitamins (Hexavitamin) 1 tab PO DAILY TANA Last Admin: 08/27/18 09:42 Dose: 1 tab Pantoprazole Sodium (Protonix Ec Tab) 20 mg PO DAILY [facility] Last Admin: 08/27/18 09:42 Dose: 20 mg - Labs Labs: 08/27/18 07:16 08/27/18 07:16 PT 12.4 SECONDS (9.7-12.2) H 08/22/18 14:23 INR 1.1 08/22/18 14:23 APTT 30 SECONDS (21-34) 08/22/18 14:23 Attending/Attestation - Attestation I have personally seen and examined this patient.: Yes I have fully participated in the care of the patient.: Yes I have reviewed all pertinent clinical information, including history, physical exam and plan: Yes Notes (Text): seen and examined,has bilateral Continue zosyn and solumedrol Her tachycardia and sob is getting better 2 sputum negative for AFB do sputum in the morning,going for bronchoscope on Wednesday continue air born isolation
[2018-08-27] MEDS: Acetylcysteine 20% Inhal Soln (4ml) INH SCH ×5 (03:02→19:39)
[2018-08-27 07:41] LABS: BASO % 0.2 % (0.0-2.0); EOS % 0.2 % (0.0-4.0); HEMOGLOBIN 12.6 g/dL (11.0-16.0); LYMPH # 2.1 K/uL (1.0-4.3); MEAN CELL VOLUME 78.9 fL (81.0-99.0); MEAN CORPUSCULAR HEMOGLOBIN 25.9 pg (27.0-31.0); MEAN CORPUSCULAR HGB CONC 32.8 g/dL (33.0-37.0); MEAN PLATELET VOLUME 9.7 fL (7.2-11.7); MONO # 1.2 K/uL (0.0-0.8); MONO % 9.5 % (0.0-10.0); NEUT # 9.7 K/uL (1.8-7.0); NEUT % 74.1 % (50.0-75.0); RBC 4.86 Mil/uL (3.80-5.20); RED CELL DISTRIBUTION WIDTH 15.3 % (11.5-14.5); WHITE BLOOD COUNT 13.1 K/uL (4.8-10.8)
[2018-08-27] MEDS: Albuterol-Ipratrop 3 mg / 0.5 (3 ml) UD INH PRN (07:45)
[2018-08-27 08:17] LABS: ALBUMIN 3.4 g/dL (3.5-5.0); ALT/SGPT 10 U/L (9-52); AST/SGOT 24 U/L (14-36); BLOOD UREA NITROGEN 11 mg/dL (7-17); CALCIUM 9.6 mg/dl (8.6-10.4); GFR NON-AFRICAN AMERICAN > 60
[2018-08-27] MEDS: Pantoprazole 20 mg EC Tab PO SCH (09:42)
[2018-08-27] MEDS: MethylPREDNISolone 40 mg Vial IVP SCH ×2 (09:42→21:45)
[2018-08-27] MEDS: Multiple Vitamins Tab PO SCH (09:42)
--- NOTE | 2018-08-27 16:01 | CARD ---
APPROVED REPORT Date of service: 08/26/2018 EXAM: Two-dimensional and M-mode echocardiogram with Doppler and color Doppler. Other Information Quality : GoodRhythm : INDICATION Abnormal EKG/Arrhythmia V tach RISK FACTORS Hypertension 2D DIMENSIONS IVSd0.6 (0.7-1.1cm)LVDd4.7 (3.9-5.9cm) PWd1.0 (0.7-1.1cm)LA Oqlljb91 (18-58mL) LVDs3.8 (2.5-4.0cm)FS (%) 18.9 % LVEF (%)32.0 (>50%)LVEF (Shah's)31.87 % M-Mode DIMENSIONS Left Atrium (MM)3.29 (2.5-4.0cm)IVSd1.07 (0.7-1.1cm) Aortic Root2.83 (2.2-3.7cm)LVDd5.38 (4.0-5.6cm) Aortic Cusp Exc.1.78 (1.5-2.0cm)PWd0.94 (0.7-1.1cm) FS (%) 21 %LVDs4.24 (2.0-3.8cm) LVEF (%)30 (>50%) Mitral Valve MV E Mptzezap894.5cm/sE/A ratio0.9ISWK641.36 cm/s TDI Lateral E' Peak V4.67cm/sMedial E' Peak V8.35cm/sE/Lateral E'27.9 E/Medial E'15.6 Tricuspid Valve TR Peak [id number] LEFT VENTRICLE The left ventricle is normal size. There is normal left ventricular wall thickness. Left ventricle systolic function is severely impaired. The Ejection Fraction is 25-30%. There is severe global hypokinesis of the left ventricle. The left ventricular diastolic function is normal. No left ventricle thrombus noted on this study. RIGHT VENTRICLE The right ventricle is normal size. There is normal right ventricular wall thickness. Systolic function is severely reduced. ATRIA The left atrium is moderately dilated. The right atrium size is normal. The atrial septum is aneurysmal. The discontinuity of the interatrial septum is suggestive of an atrial septal defect. AORTIC VALVE The aortic valve is normal in structure. No aortic regurgitation is present. There is no aortic valvular stenosis. MITRAL VALVE The mitral valve is normal in structure. There is no evidence of mitral valve prolapse. There is no mitral valve stenosis. Mitral regurgitation is mild to moderate. TRICUSPID VALVE The tricuspid valve is normal in structure. There is mild tricuspid regurgitation. Right ventricular systolic pressure is estimated at 30-40 mmHg. There is mild pulmonary hypertension. PULMONIC VALVE The pulmonic valve is not well visualized. There is no pulmonic valvular regurgitation. GREAT VESSELS The aortic root is normal in size. PERICARDIAL EFFUSION There is no significant pericardial effusion. <Conclusion> Left ventricle systolic function is severely impaired. The Ejection Fraction is 25-30%. The atrial septum is aneurysmal. The discontinuity of the interatrial septum is suggestive of an atrial septal defect. No aortic regurgitation is present. Mitral regurgitation is mild to moderate. There is mild tricuspid regurgitation. There is mild pulmonary hypertension. There is no pulmonic valvular regurgitation.
--- NOTE | 2018-08-27 16:15 | CP.PCM.PN ---
Subjective - Date & Time of Evaluation Date of Evaluation: 08/26/18 Time of Evaluation: 08:00 - Subjective Subjective: awake alert appears less SOB no fever Objective - Vital Signs/Intake and Output Vital Signs (last 24 hours): Temp Pulse Resp BP Pulse Ox 97.5 F L 105 H 20 125/78 99 08/26/18 16:00 08/26/18 16:00 08/26/18 16:00 08/26/18 16:00 08/26/18 16:00 - Medications Medications: Current Medications Acetylcysteine (Acetylcysteine 20%) 4 ml INH RQ6 TANA Last Admin: 08/26/18 13:32 Dose: Not Given Albuterol/Ipratropium (Duoneb 3 Mg/0.5 Mg (3 Ml) Ud) 3 ml INH RQ4 PRN PRN Reason: Shortness of Breath Last Admin: 08/25/18 01:27 Dose: 3 ml Heparin Sodium (Porcine) (Heparin) 5,000 units SC Q8 TANA Last Admin: 08/26/18 14:16 Dose: Not Given Piperacillin Sod/Tazobactam (Sod 3.375 gm/ Sodium Chloride) 100 mls @ 200 mls/hr IVPB Q6H TANA; Protocol Last Admin: 08/26/18 14:24 Dose: 200 mls/hr Vancomycin HCl 1 gm/ Sodium (Chloride) 250 mls @ 166.7 mls/hr IVPB Q12H TANA; Protocol Last Admin: 08/26/18 10:36 Dose: 166.7 mls/hr Methylprednisolone (Solu-Medrol) 40 mg IVP Q12 TANA Last Admin: 08/26/18 10:35 Dose: 40 mg Multivitamins (Hexavitamin) 1 tab PO DAILY TANA Last Admin: 08/26/18 10:34 Dose: 1 tab Pantoprazole Sodium (Protonix Ec Tab) 20 mg PO DAILY TANA Last Admin: 08/26/18 10:34 Dose: 20 mg - Labs Labs: 08/26/18 07:52 08/26/18 07:52 PT 12.4 SECONDS (9.7-12.2) H 08/22/18 14:23 INR 1.1 08/22/18 14:23 APTT 30 SECONDS (21-34) 08/22/18 14:23 - Constitutional Appears: No Acute Distress, Cachectic, Chronically Ill - Head Exam Head Exam: ATRAUMATIC, NORMAL INSPECTION, NORMOCEPHALIC - Eye Exam Eye Exam: EOMI, Normal appearance, PERRL Pupil Exam: NORMAL ACCOMODATION, PERRL - ENT Exam ENT Exam: Mucous Membranes Moist, Normal Exam - Neck Exam Neck Exam: Full ROM, Normal Inspection. absent: Lymphadenopathy - Respiratory Exam Respiratory Exam: Decreased Breath Sounds, Prolonged Expiratory Phase, Rales, Rhonchi - Cardiovascular Exam Cardiovascular Exam: REGULAR RHYTHM, +S1, +S2. absent: Murmur - GI/Abdominal Exam GI & Abdominal Exam: Soft, Normal Bowel Sounds. absent: Tenderness - Rectal Exam Rectal Exam: Deferred - Extremities Exam Extremities Exam: Full ROM, Normal Capillary Refill, Normal Inspection. absent: Joint Swelling, Pedal Edema - Back Exam Back Exam: NORMAL INSPECTION - Neurological Exam Neurological Exam: Alert, Awake, CN II-XII Intact, Normal Gait, Oriented x3 - Psychiatric Exam Psychiatric exam: Normal Affect, Normal Mood - Skin Skin Exam: Dry, Intact, Normal Color, Warm Assessment and Plan (1) Bronchiectasis with (acute) exacerbation Status: Acute (2) Pleural effusion Status: Acute (3) Pneumonia Status: Acute - Assessment and Plan (Free Text) Assessment: for bronchoscopy
--- NOTE | 2018-08-27 17:03 | CP.PCM.PN ---
Subjective - Date & Time of Evaluation Date of Evaluation: 08/27/18 Time of Evaluation: 15:00 - Subjective Subjective: Patient seen and examined Still complaining of productive cough but less shortness of breath Afebrile Objective - Vital Signs/Intake and Output Vital Signs (last 24 hours): Temp Pulse Resp BP Pulse Ox 97.5 F L 92 H 18 143/84 100 08/27/18 15:00 08/27/18 15:00 08/27/18 15:00 08/27/18 15:00 08/27/18 15:00 Intake and Output: 08/27/18 08/27/18 06:59 18:59 Intake Total 340 900 Balance 340 900 - Medications Medications: Current Medications Acetylcysteine (Acetylcysteine 20%) 4 ml INH RQ6 TANA Last Admin: 08/27/18 14:00 Dose: Not Given Albuterol/Ipratropium (Duoneb 3 Mg/0.5 Mg (3 Ml) Ud) 3 ml INH RQ4 PRN PRN Reason: Shortness of Breath Last Admin: 08/27/18 07:45 Dose: 3 ml Heparin Sodium (Porcine) (Heparin) 5,000 units SC Q8 TANA Last Admin: 08/27/18 16:23 Dose: Not Given Piperacillin Sod/Tazobactam (Sod 3.375 gm/ Sodium Chloride) 100 mls @ 200 mls /hr IVPB Q6H TANA; Protocol Last Admin: 08/27/18 12:08 Dose: 200 mls/hr Methylprednisolone (Solu-Medrol) 40 mg IVP Q12 TANA Last Admin: 08/27/18 09:42 Dose: 40 mg Multivitamins (Hexavitamin) 1 tab PO DAILY TANA Last Admin: 08/27/18 09:42 Dose: 1 tab Pantoprazole Sodium (Protonix Ec Tab) 20 mg PO DAILY [facility] Last Admin: 08/27/18 09:42 Dose: 20 mg - Labs Labs: 08/27/18 07:16 08/27/18 07:16 PT 12.4 SECONDS (9.7-12.2) H 08/22/18 14:23 INR 1.1 08/22/18 14:23 APTT 30 SECONDS (21-34) 08/22/18 14:23 - Head Exam Head Exam: ATRAUMATIC, NORMOCEPHALIC - ENT Exam ENT Exam: Mucous Membranes Moist - Neck Exam Neck Exam: Normal Inspection - Respiratory Exam Respiratory Exam: Rales, Rhonchi, Wheezes - Cardiovascular Exam Cardiovascular Exam: REGULAR RHYTHM - GI/Abdominal Exam GI & Abdominal Exam: Soft - Extremities Exam Extremities Exam: Full ROM, Normal Inspection Assessment and Plan (1) Bronchiectasis with (acute) exacerbation Assessment & Plan: Continue IV antibiotics Sputum for AFB to rule out HEMANT Nebulizer treatment Patient will benefit from vest therapy Mucomyst Status: Acute (2) Pleural effusion Status: Acute
[2018-08-28] MEDS: Piperacillin/Tazobact 3.375 GM in Sodium Chloride 100 ML IVPB SCH ×4 (00:49→17:57)
--- NOTE | 2018-08-28 03:21 | CP.PCM.PN ---
<Italia Guevara - Last Filed: 08/28/18 03:13> Subjective - Date & Time of Evaluation Date of Evaluation: 08/28/18 Time of Evaluation: 05:00 - Subjective Subjective: PGY-1 Medicine Progress Note for Dr. Hill Patient was seen and examined at bedside in no acute distress. Patient reports persistence of dry cough. Ambulates well in room, Denies fever, chills, chest pain, SOB, abdominal pain, n/v/c/d or urinary complaints. Objective - Vital Signs/Intake and Output Vital Signs (last 24 hours): Temp Pulse Resp BP Pulse Ox 97.9 F 73 18 155/93 H 98 08/27/18 23:00 08/27/18 23:00 08/27/18 23:00 08/27/18 23:00 08/27/18 23:00 Intake and Output: 08/27/18 08/28/18 18:59 06:59 Intake Total 900 820 Output Total 0 Balance 900 820 - Medications Medications: Current Medications Acetylcysteine (Acetylcysteine 20%) 4 ml INH RQ6 TANA Last Admin: 08/27/18 19:39 Dose: Not Given Albuterol/Ipratropium (Duoneb 3 Mg/0.5 Mg (3 Ml) Ud) 3 ml INH RQ4 PRN PRN Reason: Shortness of Breath Last Admin: 08/27/18 07:45 Dose: 3 ml Heparin Sodium (Porcine) (Heparin) 5,000 units SC Q8 TANA Last Admin: 08/27/18 21:45 Dose: Not Given Piperacillin Sod/Tazobactam (Sod 3.375 gm/ Sodium Chloride) 100 mls @ 200 mls/hr IVPB Q6H TANA; Protocol Last Admin: 08/28/18 00:49 Dose: 200 mls/hr Methylprednisolone (Solu-Medrol) 40 mg IVP Q12 TANA Last Admin: 08/27/18 21:45 Dose: 40 mg Multivitamins (Hexavitamin) 1 tab PO DAILY TANA Last Admin: 08/27/18 09:42 Dose: 1 tab Pantoprazole Sodium (Protonix Ec Tab) 20 mg PO DAILY TANA Last Admin: 08/27/18 09:42 Dose: 20 mg - Labs Labs: 08/27/18 07:16 08/27/18 07:16 PT 12.4 SECONDS (9.7-12.2) H 08/22/18 14:23 INR 1.1 08/22/18 14:23 APTT 30 SECONDS (21-34) 08/22/18 14:23 - Constitutional Appears: No Acute Distress, Cachectic - Head Exam Head Exam: ATRAUMATIC, NORMOCEPHALIC - Eye Exam Eye Exam: EOMI, Normal appearance - ENT Exam ENT Exam: Mucous Membranes Moist - Respiratory Exam Respiratory Exam: Decreased Breath Sounds, Rales, Rhonchi Additional comments: rales and rhonchi throughout with greatly diminished breath sounds on the lower left on NC - Cardiovascular Exam Cardiovascular Exam: REGULAR RHYTHM, +S1, +S2 - GI/Abdominal Exam GI & Abdominal Exam: Soft, Normal Bowel Sounds. absent: Tenderness - Extremities Exam Extremities Exam: Normal Inspection. absent: Calf Tenderness - Neurological Exam Neurological Exam: Alert, Awake, Oriented x3 - Psychiatric Exam Psychiatric exam: Anxious - Skin Skin Exam: Dry, Intact, Normal Color, Warm Assessment and Plan - Assessment and Plan (Free Text) Assessment: 68yo F with PMH asthma admitted for cystic bronchiectasis, history of weight loss. Plan: Cystic Bronchiectasis, with acute exacerbation Bilateral Pneumonia, L pleural effusion - CXR (08/22): extensive bilateral pulmonary infiltrate. likely bilateral pneumonia. small moderate left pleural effusion. - CT Chest A/P (08/22): cystic bronchiectasis with L sided effusion, mild fatty hepatic infiltration, gastric wall thickening, distended urinary bladder - Leukocytosis increased from 12.9 to 16.6, likely due to CCS treatment. Pt afebrile during hospitalization. - ABG on admission is normal - Influenza negative - HIV negative, Hepatitis panel negative - TB (quantiferon) is indeterminate - AFB sputum culture x2 prelim shows no AFB - f/u AFB x1 - Legionella Ag is negative, [id number] is high at 217 - aspergillus Ag is not detected - Duonebs INH rQ4 - Solumedrol 40mg IVP q12h - Zosyn 3.375gm IVPB q6 (started 08/22) - Vancomycin 750mg IVPB q12 (started 08/22) - O2 via NC prn - ID consulted: Dr. Land - Pulm consulted: Dr. Bashir CAT scan of the chest consistent with bilateral bronchiectasis with fibrosis Rule out HEMANT infection Continue isolation Nebulizer treatment and Mucomyst Broad-spectrum antibiotics Agreeable to bronchoscopy, planned for Wednesday, 08/29 - Blood culture x 2 negative for growth x 4 days - Airborne precautions - F/u strep pneumon, mycoplasma pneumoniae, Sputum Cx D-dimer elevation - DDimer noted to be 993 in the ED - Pt's ABG was normal, satting well on room air, resolution of sob - Venous doppler to bilateral lower extremities prelim read is normal F/u official read. Vtach, asymptomatic - currently not tachycardic - 9 beats of Vtach on the monitor 08/25 - Echocardiogram (08/26): LVEF 25-30%. mild to mod mitral regurg - continue to monitor Cachectia 30lb weight loss in 2 months - Diet consult - TSH is 0.28, FT4 is 1.94 Subclinical hyperthyroidism, no indication for treatment at this time. Outpatient management PPx - DVT: Heparin 5000u SC q8 - GI: Protonix 20mg po daily - Diet: HHD, MVI - PT eval shows dependent and steady gait. - Palliative Care consulted: Carol Ann. See note. Airborne Isolation Pt is full code. She reports that her sons will make decisions for her in case she is incapacitated. Dispo: Airborne isolation will be discontinued when AFB sputum x3 is negative, so far it is negative x2. Pt with episode of vtach, f/u echocardiogram. Pt to have bronchoscopy tomorrow, 08/31. <Nikki Hill V - Last Filed: 08/28/18 18:59> Objective - Vital Signs/Intake and Output Vital Signs (last 24 hours): Temp Pulse Resp BP Pulse Ox 97.6 F 104 H 18 130/79 96 08/28/18 15:00 08/28/18 15:00 08/28/18 15:00 08/28/18 15:00 08/28/18 15:00 Intake and Output: 08/28/18 08/28/18 06:59 18:59 Intake Total 820 Output Total 0 Balance 820 - Medications Medications: Current Medications Acetylcysteine (Acetylcysteine 20%) 4 ml INH RQ6 TANA Last Admin: 08/28/18 13:50 Dose: 4 ml Albuterol/Ipratropium (Duoneb 3 Mg/0.5 Mg (3 Ml) Ud) 3 ml INH RQ4 PRN PRN Reason: Shortness of Breath Last Admin: 08/27/18 07:45 Dose: 3 ml Heparin Sodium (Porcine) (Heparin) 5,000 units SC Q8 TANA Last Admin: 08/28/18 13:12 Dose: Not Given Piperacillin Sod/Tazobactam (Sod 3.375 gm/ Sodium Chloride) 100 mls @ 200 mls/hr IVPB Q6H TANA; Protocol Last Admin: 08/28/18 17:57 Dose: 200 mls/hr Vancomycin/Sodium Chloride (Vancomycin 1 Gm/Ns 200 Ml) 1 gm in 200 mls @ 166.6 mls/hr IVPB Q12H TANA; Protocol Stop: 09/02/18 16:01 Last Admin: 08/28/18 16:04 Dose: 166.6 mls/hr Methylprednisolone (Solu-Medrol) 40 mg IVP Q12 TANA Last Admin: 08/28/18 09:29 Dose: 40 mg Multivitamins (Hexavitamin) 1 tab PO DAILY TANA Last Admin: 08/28/18 09:29 Dose: 1 tab Pantoprazole Sodium (Protonix Ec Tab) 20 mg PO DAILY TANA Last Admin: 08/28/18 09:29 Dose: 20 mg - Labs Labs: 08/28/18 08:26 08/28/18 08:26 PT 12.4 SECONDS (9.7-12.2) H 08/22/18 14:23 INR 1.1 08/22/18 14:23 APTT 30 SECONDS (21-34) 08/22/18 14:23 Attending/Attestation - Attestation I have personally seen and examined this patient.: Yes I have fully participated in the care of the patient.: Yes I have reviewed all pertinent clinical information, including history, physical exam and plan: Yes Notes (Text): Patient seen, examined and case discussed with day-time resident. Patient completed AFB, third sputum. Patient is scheduled for bronchscopy tomorrow with Dr. Bashir. heparin is held. Noted with patient has low ef on echocardiogram. Will consult cardiology. Patient is on IV zosyn and IV solumedrol. Assessment/Plan 1. Cystic Bronchiectasis, with acute exacerbation Bilateral Pneumonia, L pleural effusion Assessment/Plan * Pulmonary (Dr. Bashir) on consult help appreciated * Sputum for AFB to rule out HEMANT * Nebulizer treatment * Patient will benefit from vest therapy * Infectious disease (Dr. Land) on consult help appreciated * Patient is going for bronchoscopy tomorrow; heparin held. * Chest xray (08/22/18): extensive bilateral pulmonary infiltrate. likely bilateral pneumonia. small moderate left pleural effusion. * CT chest (08/22/18): areas of dense consolidation/atelectasis in the left lung base; progressed 03/01/16. Entensive cystic changes seen throughout the left lung and less so the right upper lobe possibly representing cystic bronchiectasis. Left sided effusion possibly with some loculated components. mucous plugging changes or compressive effects on the proximal branches of the left upper and lower lobe of bronchi. mild fatty hepatic infiltration. gastric wall thickening in part of incomplete distension. markedly distended urinary bladder, rule out urinary retention * ANCA pending * c ANCA titer pending * Proteinase 3 <1.0 * myeloperoxidase <1.0 * b DGlucan negative * indetermine quantaferon * Aspergillus flavus negative * Aspergillus fumigatus negative * Aspergillus niger negative * HIV negative * influenza negative * Hepatitis negative * Blood culture (08/22/18): no growth after 5 days X2 * Myobacterial culture (08/23/18): prelim * Myobacterial culture (08/25/18): prelim * Myobacrerial culture (08/28/18): pending * Solumedrol 40mg IV Q12H * Zosyn 3.375 IVPB Q6H (active since 08/22/18) 2. D-dimer elevation Assessment/Plan * DDimer noted to be 993 in the ED * CT chest (08/22/18): areas of dense consolidation/atelectasis in the left lung base; progressed 03/01/16. Entensive cystic changes seen throughout the left lung and less so the right upper lobe possibly representing cystic bronchiectasis. Left sided effusion possibly with some loculated components. mucous plugging changes or compressive effects on the proximal branches of the left upper and lower lobe of bronchi. mild fatty hepatic infiltration. gastric wall thickening in part of incomplete distension. markedly distended urinary bladder, rule out urinary retention * Pt's ABG was normal, satting well on room air, resolution of sob * Venous doppler prelim: negative F/u official read. 3. Systolic Congestive Heart Failure Assessment/Plan * echocardiogram (08/27/18) left ventrcile systolic function is severely impaired. ejection fraction is 25-30%. atrial septum aneurysmal. possible asd? no aortic regurgitation is present. mitral regurgitation is mild to moderate. mild tricupsid regurgitation. mild pulmonary hypertension. * will consult cardio in light of echo report 4. Cachectia Assessment/Plan * 30lb weight loss in 2 months * Chair Maker referral 5. PPx - DVT ppx: held Heparin 5000u SC q8 for bronchoscopy tomorrow - GI: Protonix 40mg po daily - Diet: HHD, MVI - PT eval shows dependent and steady gait. - Palliative Care consulted: Carol Ann. See note. Airborne Isolation Pt is full code. She reports that her sons will make decisions for her in case she is incapacitated. Disposition: Airborne isolation will be discontinued when AFB sputum x3 is negative, so far it is negative x2. Pt with episode of vtach, f/u echocardiogram. Pt to have bronchoscopy tomorrow, 08/31. cardiology consult in light of echo findings. heparin held for bronchoscopy tomorrow.
[2018-08-28] MEDS: Acetylcysteine 20% Inhal Soln (4ml) INH SCH ×3 (07:55→19:49)
[2018-08-28 08:35] LABS: BASO % 0.2 % (0.0-2.0); HEMOGLOBIN 12.6 g/dL (11.0-16.0); LYMPH # 1.5 K/uL (1.0-4.3); LYMPH % 11.8 % (20.0-40.0); MEAN CORPUSCULAR HEMOGLOBIN 25.1 pg (27.0-31.0); MEAN CORPUSCULAR HGB CONC 31.8 g/dL (33.0-37.0); MEAN PLATELET VOLUME 9.6 fL (7.2-11.7); MONO # 0.9 K/uL (0.0-0.8); MONO % 6.8 % (0.0-10.0); NEUT # 10.6 K/uL (1.8-7.0); NEUT % 81.2 % (50.0-75.0); RBC 5.02 Mil/uL (3.80-5.20); RED CELL DISTRIBUTION WIDTH 15.7 % (11.5-14.5); WHITE BLOOD COUNT 13.1 K/uL (4.8-10.8)
[2018-08-28 09:08] LABS: ALBUMIN 3.4 g/dL (3.5-5.0); ALT/SGPT 11 U/L (9-52); AST/SGOT 23 U/L (14-36); BLOOD UREA NITROGEN 14 mg/dL (7-17); CALCIUM 9.7 mg/dl (8.6-10.4); GFR NON-AFRICAN AMERICAN > 60
[2018-08-28] MEDS: Pantoprazole 20 mg EC Tab PO SCH (09:29)
[2018-08-28] MEDS: MethylPREDNISolone 40 mg Vial IVP SCH ×2 (09:29→21:11)
[2018-08-28] MEDS: Multiple Vitamins Tab PO SCH (09:29)
--- NOTE | 2018-08-28 15:37 | CP.PCM.PN ---
Subjective - Date & Time of Evaluation Date of Evaluation: 08/28/18 Time of Evaluation: 09:00 - Subjective Subjective: seen on rounds ROS completed chart reviewed patient examined orders written antibiotics renewed Objective - Vital Signs/Intake and Output Vital Signs (last 24 hours): Temp Pulse Resp BP Pulse Ox 97.4 F L 96 H 20 150/95 H 100 08/28/18 07:12 08/28/18 12:02 08/28/18 07:12 08/28/18 07:12 08/28/18 07:12 Intake and Output: 08/28/18 08/28/18 06:59 18:59 Intake Total 820 Output Total 0 Balance 820 - Medications Medications: Current Medications Acetylcysteine (Acetylcysteine 20%) 4 ml INH RQ6 TANA Last Admin: 08/28/18 13:50 Dose: 4 ml Albuterol/Ipratropium (Duoneb 3 Mg/0.5 Mg (3 Ml) Ud) 3 ml INH RQ4 PRN PRN Reason: Shortness of Breath Last Admin: 08/27/18 07:45 Dose: 3 ml Heparin Sodium (Porcine) (Heparin) 5,000 units SC Q8 TANA Last Admin: 08/28/18 13:12 Dose: Not Given Piperacillin Sod/Tazobactam (Sod 3.375 gm/ Sodium Chloride) 100 mls @ 200 mls/hr IVPB Q6H TANA; Protocol Last Admin: 08/28/18 11:46 Dose: 200 mls/hr Methylprednisolone (Solu-Medrol) 40 mg IVP Q12 TANA Last Admin: 08/28/18 09:29 Dose: 40 mg Multivitamins (Hexavitamin) 1 tab PO DAILY TANA Last Admin: 08/28/18 09:29 Dose: 1 tab Pantoprazole Sodium (Protonix Ec Tab) 20 mg PO DAILY TANA Last Admin: 08/28/18 09:29 Dose: 20 mg - Labs Labs: 08/28/18 08:26 08/28/18 08:26 PT 12.4 SECONDS (9.7-12.2) H 08/22/18 14:23 INR 1.1 08/22/18 14:23 APTT 30 SECONDS (21-34) 08/22/18 14:23 - Constitutional Appears: No Acute Distress, Cachectic, Chronically Ill - Head Exam Head Exam: ATRAUMATIC, NORMAL INSPECTION, NORMOCEPHALIC - Eye Exam Eye Exam: EOMI, Normal appearance, PERRL Pupil Exam: NORMAL ACCOMODATION, PERRL - ENT Exam ENT Exam: Mucous Membranes Moist, Normal Exam - Neck Exam Neck Exam: Full ROM, Normal Inspection. absent: Lymphadenopathy - Respiratory Exam Respiratory Exam: Decreased Breath Sounds, Clear to Ausculation Bilateral, Prolonged Expiratory Phase - Cardiovascular Exam Cardiovascular Exam: REGULAR RHYTHM, +S1, +S2. absent: Murmur - GI/Abdominal Exam GI & Abdominal Exam: Distended, Soft, Normal Bowel Sounds. absent: Tenderness - Rectal Exam Rectal Exam: Deferred - Exam Exam: NORMAL INSPECTION - Extremities Exam Extremities Exam: Full ROM, Normal Capillary Refill, Normal Inspection. absent: Joint Swelling, Pedal Edema - Back Exam Back Exam: NORMAL INSPECTION - Neurological Exam Neurological Exam: Alert, Awake, CN II-XII Intact, Normal Gait, Oriented x3 - Psychiatric Exam Psychiatric exam: Normal Affect, Normal Mood - Skin Skin Exam: Dry, Intact, Normal Color, Warm Assessment and Plan (1) Bronchiectasis with (acute) exacerbation Status: Acute (2) Pleural effusion Status: Acute (3) Pneumonia Status: Acute - Assessment and Plan (Free Text) Assessment: IV antibioitic renewed for OR / bronchoscopy
[2018-08-28] MEDS: Vancomycin 1 gm/NS 200 ml 1 GM/200 ML BAG IVPB SCH (16:04)
[2018-08-28] MEDS: Albuterol-Ipratrop 3 mg / 0.5 (3 ml) UD INH PRN (19:49)
[2018-08-29] MEDS: Piperacillin/Tazobact 3.375 GM in Sodium Chloride 100 ML IVPB SCH ×4 (00:30→19:06)
[2018-08-29] MEDS: Acetylcysteine 20% Inhal Soln (4ml) INH SCH (01:39)
[2018-08-29] MEDS: Vancomycin 1 gm/NS 200 ml 1 GM/200 ML BAG IVPB SCH ×2 (03:15→16:26)
--- NOTE | 2018-08-29 07:37 | CP.PCM.PN ---
<Lester Rooney - Last Filed: 08/29/18 13:23> Subjective - Date & Time of Evaluation Date of Evaluation: 08/29/18 Time of Evaluation: 09:00 - Subjective Subjective: PGY-1 Medicine Progress Note for Dr. Hill Patient was seen and examined at bedside. No acute events overnight. Still has productive cough, but reports that it is slightly better. Continues to ambulate well. Denies fever, chills, chest pain, SOB, abdominal pain, n/v/c/d or urinary complaints. Objective - Vital Signs/Intake and Output Vital Signs (last 24 hours): Temp Pulse Resp BP Pulse Ox 98.1 F 90 20 146/91 H 98 08/29/18 00:00 08/29/18 03:37 08/29/18 00:00 08/29/18 00:00 08/29/18 00:00 - Medications Medications: Current Medications Acetylcysteine (Acetylcysteine 20%) 4 ml INH RQ6 TANA Last Admin: 08/29/18 01:39 Dose: Not Given Albuterol/Ipratropium (Duoneb 3 Mg/0.5 Mg (3 Ml) Ud) 3 ml INH RQ4 PRN PRN Reason: Shortness of Breath Last Admin: 08/28/18 19:49 Dose: 3 ml Heparin Sodium (Porcine) (Heparin) 5,000 units SC Q8 TANA Last Admin: 08/28/18 13:12 Dose: Not Given Piperacillin Sod/Tazobactam (Sod 3.375 gm/ Sodium Chloride) 100 mls @ 200 mls/hr IVPB Q6H TANA; Protocol Last Admin: 08/29/18 06:01 Dose: 200 mls/hr Vancomycin/Sodium Chloride (Vancomycin 1 Gm/Ns 200 Ml) 1 gm in 200 mls @ 166.6 mls/hr IVPB Q12H TANA; Protocol Stop: 09/02/18 16:01 Last Admin: 08/29/18 03:15 Dose: 166.6 mls/hr Methylprednisolone (Solu-Medrol) 40 mg IVP Q12 TANA Last Admin: 08/28/18 21:11 Dose: 40 mg Multivitamins (Hexavitamin) 1 tab PO DAILY TANA Last Admin: 08/28/18 09:29 Dose: 1 tab Pantoprazole Sodium (Protonix Ec Tab) 20 mg PO DAILY TANA Last Admin: 08/28/18 09:29 Dose: 20 mg - Labs Labs: 08/28/18 08:26 08/28/18 08:26 PT 12.4 SECONDS (9.7-12.2) H 08/22/18 14:23 INR 1.1 08/22/18 14:23 APTT 30 SECONDS (21-34) 08/22/18 14:23 - Additional Findings Additional findings: - Constitutional Appears: No Acute Distress, Cachectic - Head Exam Head Exam: ATRAUMATIC, NORMOCEPHALIC - Eye Exam Eye Exam: EOMI, Normal appearance - ENT Exam ENT Exam: Mucous Membranes Moist - Respiratory Exam Respiratory Exam: Decreased Breath Sounds, Rales, Rhonchi - Cardiovascular Exam Cardiovascular Exam: REGULAR RHYTHM, +S1, +S2. Tachycardia at approximately 100 bpm - GI/Abdominal Exam GI & Abdominal Exam: Soft, Normal Bowel Sounds. absent: Tenderness - Extremities Exam Extremities Exam: Normal Inspection. absent: Calf Tenderness - Neurological Exam Neurological Exam: Alert, Awake, Oriented x3 - Psychiatric Exam Psychiatric exam: Anxious - Skin Skin Exam: Dry, Intact, Normal Color, Warm Assessment and Plan - Assessment and Plan (Free Text) Assessment: Cystic Bronchiectasis, with acute exacerbation Bilateral Pneumonia, L pleural effusion Assessment/Plan * Pulmonary (Dr. Bashir) on consult help appreciated * Sputum for AFB to rule out HEMANT * Nebulizer treatment * Patient will benefit from vest therapy * Pt will not have bronchoscopy today due to high risk for anesthesia * Infectious disease (Dr. Land) on consult help appreciated * Chest xray (08/22/18): extensive bilateral pulmonary infiltrate. likely bi lateral pneumonia. small moderate left pleural effusion. * CT chest (08/22/18): areas of dense consolidation/atelectasis in the left lung base; progressed 03/01/16. Extensive cystic changes seen throughout the left lung and less so the right upper lobe possibly representing cystic bronchiectasis. Left sided effusion possibly with some loculated components. mucous plugging changes or compressive effects on the proximal branches of the left upper and lower lobe of bronchi. mild fatty hepatic infiltration. gastric wall thickening in part of incomplete distension. markedly distended urinary bladder, rule out urinary retention * ANCA pending * c ANCA titer pending * Proteinase 3 <1.0 * myeloperoxidase <1.0 * b DGlucan negative * indetermine quantaferon * Aspergillus flavus negative * Aspergillus fumigatus negative * Aspergillus niger negative * HIV negative * influenza negative * Hepatitis negative * Blood culture (08/22/18): no growth after 5 days X2 * Myobacterial culture (08/23/18): prelim * Myobacterial culture (08/25/18): prelim * Myobacterial culture (08/28/18): pending * Solumedrol 40mg IV Q12H * Zosyn 3.375 IVPB Q6H (active since 08/22/18) D-dimer elevation Assessment/Plan * DDimer noted to be 993 in the ED * CT chest (08/22/18): areas of dense consolidation/atelectasis in the left lung base; progressed 03/01/16. Entensive cystic changes seen throughout the left lung and less so the right upper lobe possibly representing cystic bronchiectasis. Left sided effusion possibly with some loculated components. mucous plugging changes or compressive effects on the proximal branches of the left upper and lower lobe of bronchi. mild fatty hepatic infiltration. gastric wall thickening in part of incomplete distension. markedly distended urinary bladder, rule out urinary retention * Pt's ABG was normal, satting well on room air, resolution of sob * Venous doppler prelim: negative. F/u official read. Heart Failure with Reduced Ejection Fraction Assessment/Plan * Echocardiogram (08/27/18) left ventricular systolic function is severely impaired. ejection fraction is 25-30%. atrial septum aneurysmal. possible asd? no aortic regurgitation is present. mitral regurgitation is mild to moderate. mild tricuspid regurgitation. mild pulmonary hypertension. * BNP on admission is 1220 * Today's BNP is 780 * Cardiology, Dr. Pedraza, consulted. * Possible cardiac cath. Cachexia Assessment/Plan * 30lb weight loss in 2 months * Shot Polisher And Inspector referral PPx - DVT ppx: held Heparin 5000u SC q8 for bronchoscopy tomorrow - GI: Protonix 40mg po daily - Diet: HHD, MVI - PT eval shows dependent and steady gait. - Palliative Care consulted: Carol Ann. Airborne Isolation Pt is full code. She reports that her sons will make decisions for her in case she is incapacitated. Disposition: Airborne isolation will be discontinued when AFB sputum x3 is negative, so far it is negative x2. Pending cardiology evaluation, possible cardiac cath. <Nikki Hill V - Last Filed: 08/29/18 18:38> Objective - Vital Signs/Intake and Output Vital Signs (last 24 hours): Temp Pulse Resp BP Pulse Ox 97.5 F L 114 H 20 133/74 90 L 08/29/18 15:17 08/29/18 16:00 08/29/18 15:17 08/29/18 15:17 08/29/18 15:17 - Medications Medications: Current Medications Acetylcysteine (Acetylcysteine 20%) 4 ml INH RQ6 ATNA Last Admin: 08/29/18 01:39 Dose: Not Given Albuterol/Ipratropium (Duoneb 3 Mg/0.5 Mg (3 Ml) Ud) 3 ml INH RQ4 PRN PRN Reason: Shortness of Breath Last Admin: 08/28/18 19:49 Dose: 3 ml Furosemide (Lasix) 40 mg IVP DAILY TANA Last Admin: 08/29/18 14:06 Dose: 40 mg Heparin Sodium (Porcine) (Heparin) 5,000 units SC Q8 TANA Last Admin: 08/29/18 14:06 Dose: Not Given Piperacillin Sod/Tazobactam (Sod 3.375 gm/ Sodium Chloride) 100 mls @ 200 mls/h r IVPB Q6H TANA; Protocol Last Admin: 08/29/18 12:31 Dose: 200 mls/hr Vancomycin/Sodium Chloride (Vancomycin 1 Gm/Ns 200 Ml) 1 gm in 200 mls @ 166.6 mls/hr IVPB Q12H TANA; Protocol Stop: 09/02/18 16:01 Last Admin: 08/29/18 16:26 Dose: 166.6 mls/hr Methylprednisolone (Solu-Medrol) 40 mg IVP Q12 TANA Last Admin: 08/29/18 11:05 Dose: 40 mg Multivitamins (Hexavitamin) 1 tab PO DAILY TANA Last Admin: 08/29/18 11:05 Dose: 1 tab Pantoprazole Sodium (Protonix Ec Tab) 20 mg PO DAILY TANA Last Admin: 08/29/18 11:05 Dose: 20 mg - Labs Labs: 08/29/18 07:49 08/29/18 07:49 PT 12.4 SECONDS (9.7-12.2) H 08/22/18 14:23 INR 1.1 08/22/18 14:23 APTT 30 SECONDS (21-34) 08/22/18 14:23 Attending/Attestation - Attestation I have personally seen and examined this patient.: Yes I have fully participated in the care of the patient.: Yes I have reviewed all pertinent clinical information, including history, physical exam and plan: Yes
[2018-08-29 08:04] LABS: BASO % 0.2 % (0.0-2.0); EOS % 0.1 % (0.0-4.0); HEMOGLOBIN 12.5 g/dL (11.0-16.0); LYMPH # 1.8 K/uL (1.0-4.3); LYMPH % 11.2 % (20.0-40.0); MEAN CELL VOLUME 77.9 fL (81.0-99.0); MEAN CORPUSCULAR HEMOGLOBIN 25.1 pg (27.0-31.0); MEAN CORPUSCULAR HGB CONC 32.3 g/dL (33.0-37.0); MEAN PLATELET VOLUME 9.7 fL (7.2-11.7); MONO # 1.2 K/uL (0.0-0.8); MONO % 7.3 % (0.0-10.0); NEUT # 13.1 K/uL (1.8-7.0); NEUT % 81.2 % (50.0-75.0); RBC 4.99 Mil/uL (3.80-5.20); RED CELL DISTRIBUTION WIDTH 15.7 % (11.5-14.5); WHITE BLOOD COUNT 16.1 K/uL (4.8-10.8)
[2018-08-29 08:23] LABS: ALB/GLOB RATIO 1.1 (1.0-2.1); ALBUMIN 3.5 g/dL (3.5-5.0); ALT/SGPT 12 U/L (9-52); AST/SGOT 54 U/L (14-36); BLOOD UREA NITROGEN 15 mg/dL (7-17); CALCIUM 9.5 mg/dl (8.6-10.4); GFR NON-AFRICAN AMERICAN > 60
[2018-08-29] MEDS: Multiple Vitamins Tab PO SCH (11:05)
[2018-08-29] MEDS: MethylPREDNISolone 40 mg Vial IVP SCH (11:05)
[2018-08-29] MEDS: Pantoprazole 20 mg EC Tab PO SCH (11:05)
[2018-08-29 13:31] LABS: B-TYPE NATRIURETIC PEPTIDE 780 pg/mL (0-900)
--- NOTE | 2018-08-29 16:57 | CP.PCM.PN ---
Subjective - Date & Time of Evaluation Date of Evaluation: 08/29/18 Time of Evaluation: 10:00 - Subjective Subjective: Patient seen and examined Patient states cough and shortness of breath is improving Afebrile 2 sputum AFB negative Echocardiogram consistent with low ejection fraction Objective - Vital Signs/Intake and Output Vital Signs (last 24 hours): Temp Pulse Resp BP Pulse Ox 97.5 F L 121 H 20 133/74 90 L 08/29/18 15:17 08/29/18 15:17 08/29/18 15:17 08/29/18 15:17 08/29/18 15:17 - Medications Medications: Current Medications Acetylcysteine (Acetylcysteine 20%) 4 ml INH RQ6 TANA Last Admin: 08/29/18 01:39 Dose: Not Given Albuterol/Ipratropium (Duoneb 3 Mg/0.5 Mg (3 Ml) Ud) 3 ml INH RQ4 PRN PRN Reason: Shortness of Breath Last Admin: 08/28/18 19:49 Dose: 3 ml Furosemide (Lasix) 40 mg IVP DAILY TANA Last Admin: 08/29/18 14:06 Dose: 40 mg Heparin Sodium (Porcine) (Heparin) 5,000 units SC Q8 TNAA Last Admin: 08/29/18 14:06 Dose: Not Given Piperacillin Sod/Tazobactam (Sod 3.375 gm/ Sodium Chloride) 100 mls @ 200 mls/hr IVPB Q6H TANA; Protocol Last Admin: 08/29/18 12:31 Dose: 200 mls/hr Vancomycin/Sodium Chloride (Vancomycin 1 Gm/Ns 200 Ml) 1 gm in 200 mls @ 166.6 mls/hr IVPB Q12H TANA; Protocol Stop: 09/02/18 16:01 Last Admin: 08/29/18 16:26 Dose: 166.6 mls/hr Methylprednisolone (Solu-Medrol) 40 mg IVP Q12 TANA Last Admin: 08/29/18 11:05 Dose: 40 mg Multivitamins (Hexavitamin) 1 tab PO DAILY TANA Last Admin: 08/29/18 11:05 Dose: 1 tab Pantoprazole Sodium (Protonix Ec Tab) 20 mg PO DAILY TANA Last Admin: 08/29/18 11:05 Dose: 20 mg - Labs Labs: 08/29/18 07:49 08/29/18 07:49 PT 12.4 SECONDS (9.7-12.2) H 08/22/18 14:23 INR 1.1 08/22/18 14:23 APTT 30 SECONDS (21-34) 08/22/18 14:23 - Head Exam Head Exam: ATRAUMATIC, NORMOCEPHALIC - ENT Exam ENT Exam: Mucous Membranes Moist - Neck Exam Neck Exam: Normal Inspection - Respiratory Exam Respiratory Exam: Rales, Rhonchi - Cardiovascular Exam Cardiovascular Exam: REGULAR RHYTHM - GI/Abdominal Exam GI & Abdominal Exam: Soft, Normal Bowel Sounds - Extremities Exam Extremities Exam: Full ROM, Normal Inspection - Neurological Exam Neurological Exam: Alert Assessment and Plan (1) Bronchiectasis with (acute) exacerbation Assessment & Plan: Continue IV antibiotics Discontinue isolation 3 AFB negative Continue steroids and nebulizer treatment Cardiology evaluation for low ejection fraction Patient high risk for bronchoscopy as per anesthesia Status: Acute (2) Pleural effusion Status: Acute
[2018-08-29 23:50] LABS: ANCA SCREEN NEGATIVE (NEGATIVE)
[2018-08-30] MEDS: Piperacillin/Tazobact 3.375 GM in Sodium Chloride 100 ML IVPB SCH ×4 (00:05→19:10)
[2018-08-30] MEDS: Acetylcysteine 20% Inhal Soln (4ml) INH SCH ×4 (01:47→15:08)
[2018-08-30] MEDS: Vancomycin 1 gm/NS 200 ml 1 GM/200 ML BAG IVPB SCH ×2 (04:21→17:00)
[2018-08-30] MEDS: Albuterol-Ipratrop 3 mg / 0.5 (3 ml) UD INH PRN ×2 (07:50→13:45)
[2018-08-30 09:48] LABS: ALB/GLOB RATIO 1.1 (1.0-2.1); ALBUMIN 3.6 g/dL (3.5-5.0); ALT/SGPT 28 U/L (9-52); AST/SGOT 46 U/L (14-36); BLOOD UREA NITROGEN 28 mg/dL (7-17); CALCIUM 9.8 mg/dl (8.6-10.4); GFR NON-AFRICAN AMERICAN > 60; HDL CHOLESTEROL 42 mg/dL (30-70)
[2018-08-30 09:54] LABS: LDL CHOLESTEROL 61 mg/dL (0-129)
[2018-08-30 11:10] LABS: BASO # 0.1 K/uL (0.0-0.2); BASO % 0.4 % (0.0-2.0); EOS # 0.2 K/uL (0.0-0.7); EOS % 1.5 % (0.0-4.0); HEMOGLOBIN 12.6 g/dL (11.0-16.0); LYMPH # 2.3 K/uL (1.0-4.3); LYMPH % 16.2 % (20.0-40.0); MEAN CELL VOLUME 77.7 fL (81.0-99.0); MEAN CORPUSCULAR HEMOGLOBIN 25.2 pg (27.0-31.0); MEAN CORPUSCULAR HGB CONC 32.5 g/dL (33.0-37.0); MEAN PLATELET VOLUME 9.5 fL (7.2-11.7); MONO # 1.6 K/uL (0.0-0.8); MONO % 10.9 % (0.0-10.0); NEUT # 10.2 K/uL (1.8-7.0); NRBC % 0.1 % (0.0-2.0); RED CELL DISTRIBUTION WIDTH 15.8 % (11.5-14.5); WHITE BLOOD COUNT 14.3 K/uL (4.8-10.8)
[2018-08-30] MEDS: MethylPREDNISolone 40 mg Vial IVP SCH ×2 (11:21→21:04)
[2018-08-30] MEDS: Pantoprazole 20 mg EC Tab PO SCH ×2 (11:21→11:58)
[2018-08-30] MEDS: Multiple Vitamins Tab PO SCH ×2 (11:21→11:57)
--- NOTE | 2018-08-30 13:00 | VASCLAB ---
Date of service: 08/26/2018 PROCEDURE: Lower Extremity Venous Duplex Exam. HISTORY: Elevated D dimer PRIORS: None. TECHNIQUE: Bilateral common femoral, femoral, popliteal and posterior tibial, peroneal and great saphenous veins were evaluated. Flow was assessed with color Doppler, compressibility, assessment of phasic flow and augmentation response. Report prepared by Juan Beckford, BS, RVT FINDINGS: RIGHT: 1. Common Femoral Vein: 1.1. Compressibility - Fully compressible: Thrombus - None : Flow - Phasic: Augmentation -Normal: Reflux - None. 2. Femoral Vein: 2.1. Compressibility - Fully compressible: Thrombus - None : Flow - Phasic: Augmentation -Normal: Reflux - None. 3. Popliteal Vein: 3.1. Compressibility - Fully compressible: Thrombus - None : Flow - Phasic: Augmentation -Normal: Reflux - None. 4. Posterior Tibial Vein: 4.1. Compressibility - Fully compressible: Thrombus - None: Flow - Phasic: Augmentation -Normal: Reflux - None. 5. Peroneal Vein: 5.1. Compressibility - Fully compressible: Thrombus - None: Flow - Phasic: Augmentation -Normal: Reflux - None. 6. Great Saphenous Vein: 6.1. Compressibility - Fully compressible: Thrombus - None: Flow - Phasic: Augmentation - Normal: Reflux - None. LEFT: 1. Common Femoral Vein: 1.1. Compressibility - Fully compressible: Thrombus - None: Flow - Phasic: Augmentation -Normal: Reflux - None. 2. Femoral Vein: 2.1. Compressibility - Fully compressible: Thrombus - None: Flow - Phasic: Augmentation -Normal: Reflux - None. 3. Popliteal Vein: 3.1. Compressibility - Fully compressible: Thrombus - None : Flow - Phasic: Augmentation -Normal: Reflux - None. 4. Posterior Tibial Vein: 4.1. Compressibility - Fully compressible: Thrombus - None: Flow - Phasic: Augmentation -Normal: Reflux - None. 5. Peroneal Vein: 5.1. Compressibility - Fully compressible: Thrombus - None: Flow - Phasic: Augmentation -Normal: Reflux - None. 6. Great Saphenous Vein: 6.1. Compressibility - Fully compressible: Thrombus - None: Flow - Phasic: Augmentation - Normal: Reflux - None. OTHER FINDINGS: Right: None significant. Left: None significant. IMPRESSION: Right: No evidence of deep or superficial vein thrombosis of the right lower extremity. Normal valve function noted of the right side. Left: No evidence of deep or superficial vein thrombosis of the left lower extremity. Normal valve function noted of the left side.
--- NOTE | 2018-08-30 14:03 | CP.PCM.PN ---
Subjective - Date & Time of Evaluation Date of Evaluation: 08/30/18 Time of Evaluation: 10:00 - Subjective Subjective: PGY-1 Medicine Progress Note for Dr. Hill Patient was seen and examined at bedside. No acute events overnight. Continues to have cough productive of white sputum. Continues to ambulate well in the room. Denies fever, chills, chest pain, SOB, abdominal pain, n/v/c/d or urinary complaints, headache, dizziness, lightheadedness. Objective - Vital Signs/Intake and Output Vital Signs (last 24 hours): Temp Pulse Resp BP Pulse Ox 97.2 F L 108 H 20 144/88 97 08/30/18 08:10 08/30/18 11:57 08/30/18 08:10 08/30/18 11:57 08/30/18 11:57 - Medications Medications: Current Medications Acetylcysteine (Acetylcysteine 20%) 4 ml INH RQ6 [facility]NA Last Admin: 08/30/18 07:50 Dose: 4 ml Albuterol/Ipratropium (Duoneb 3 Mg/0.5 Mg (3 Ml) Ud) 3 ml INH RQ4 PRN PRN Reason: Shortness of Breath Last Admin: 08/30/18 07:50 Dose: 3 ml Carvedilol (Coreg) 3.125 mg PO BID [facility]NA Last Admin: 08/30/18 11:57 Dose: 3.125 mg Furosemide (Lasix) 40 mg IVP DAILY [facility] Last Admin: 08/30/18 11:22 Dose: Not Given Heparin Sodium (Porcine) (Heparin) 5,000 units SC Q8 [facility] Last Admin: 08/30/18 06:02 Dose: Not Given Piperacillin Sod/Tazobactam (Sod 3.375 gm/ Sodium Chloride) 100 mls @ 200 mls/hr IVPB Q6H [facility]; Protocol Last Admin: 08/30/18 12:38 Dose: 200 mls/hr Vancomycin/Sodium Chloride (Vancomycin 1 Gm/Ns 200 Ml) 1 gm in 200 mls @ 166.6 mls/hr IVPB Q12H [facility]; Protocol Stop: 09/02/18 16:01 Last Admin: 08/30/18 04:21 Dose: Not Given Losartan Potassium (Cozaar) 25 mg PO DAILY [facility] Last Admin: 08/30/18 11:58 Dose: 25 mg Methylprednisolone (Solu-Medrol) 40 mg IVP Q12 [facility] Last Admin: 08/30/18 11:21 Dose: 40 mg Multivitamins (Hexavitamin) 1 tab PO DAILY [facility] Last Admin: 08/30/18 11:57 Dose: 1 tab Pantoprazole Sodium (Protonix Ec Tab) 20 mg PO DAILY [facility] Last Admin: 08/30/18 11:58 Dose: 20 mg - Labs Labs: 08/30/18 11:04 08/30/18 07:13 PT 12.4 SECONDS (9.7-12.2) H 08/22/18 14:23 INR 1.1 08/22/18 14:23 APTT 30 SECONDS (21-34) 08/22/18 14:23 - Additional Findings Additional findings: - Constitutional Appears: No Acute Distress, Cachectic - Head Exam Head Exam: ATRAUMATIC, NORMOCEPHALIC - Eye Exam Eye Exam: EOMI, Normal appearance - ENT Exam ENT Exam: Mucous Membranes Moist - Respiratory Exam Respiratory Exam: Decreased Breath Sounds, Rales, Rhonchi - Cardiovascular Exam Cardiovascular Exam: IRREGULAR RHYTHM, +S1, +S2. Tachycardia at approximately 100 bpm. - GI/Abdominal Exam GI & Abdominal Exam: Soft, Normal Bowel Sounds. absent: Tenderness - Extremities Exam Extremities Exam: Normal Inspection. absent: Calf Tenderness - Neurological Exam Neurological Exam: Alert, Awake, Oriented x3 - Psychiatric Exam Psychiatric exam: Anxious - Skin Skin Exam: Dry, Intact, Normal Color, Warm Assessment and Plan - Assessment and Plan (Free Text) Assessment: Cystic Bronchiectasis, with acute exacerbation Bilateral Pneumonia, L pleural effusion Assessment/Plan * Pulmonary (Dr. Bashir) on consult help appreciated * Sputum for AFB to rule out HEMANT * Nebulizer treatment * Patient will benefit from vest therapy * Pt will not have bronchoscopy at this time due to high risk for anesthesia * Infectious disease, Dr. Land, consulted. * Chest xray (08/22/18): extensive bilateral pulmonary infiltrate. likely bilateral pneumonia. small moderate left pleural effusion. * CT chest (08/22/18): areas of dense consolidation/atelectasis in the left lung base; progressed 03/01/16. Extensive cystic changes seen throughout the left lung and less so the right upper lobe possibly representing cystic bronchiectasis. Left sided effusion possibly with some loculated components. mucous plugging changes or compressive effects on the proximal branches of the left upper and lower lobe of bronchi. mild fatty hepatic infiltration. gastric wall thickening in part of incomplete distension. markedly distended urinary bladder, rule out urinary retention * ANCA pending * c ANCA titer pending * Proteinase 3 <1.0 * myeloperoxidase <1.0 * b DGlucan negative * indeterminate quantaferon * Aspergillus flavus negative * Aspergillus fumigatus negative * Aspergillus niger negative * HIV negative * influenza negative * Hepatitis negative * Blood culture (08/22/18): no growth after 5 days X2 * Myobacterial culture (08/23/18): negative for AFB. prelim * Myobacterial culture (08/25/18): negative for AFB. prelim * Myobacterial culture (08/28/18): negative for AFB. prelim * Solumedrol 40mg IV Q12H * Zosyn 3.375 IVPB Q6H (active since 08/22/18) * Vancomycin 1g IVPB Q12H (active since 08/22/18) * airborne precautions discontinued as three sputum specimens have been negative for AFB * continue mucomyst INH, chest physiotherapy D-dimer elevation Assessment/Plan * DDimer noted to be 993 in the ED * CT chest (08/22/18): areas of dense consolidation/atelectasis in the left lung base; progressed 03/01/16. Entensive cystic changes seen throughout the left lung and less so the right upper lobe possibly representing cystic bronchie ctasis. Left sided effusion possibly with some loculated components. mucous plugging changes or compressive effects on the proximal branches of the left upper and lower lobe of bronchi. mild fatty hepatic infiltration. gastric wall thickening in part of incomplete distension. markedly distended urinary bladder, rule out urinary retention * Pt's ABG was normal, satting well on room air, resolution of sob * Venous doppler (08/26) negative Heart Failure with Reduced Ejection Fraction Assessment/Plan * Echocardiogram (08/27/18) left ventricular systolic function is severely im paired. ejection fraction is 25-30%. atrial septum aneurysmal. possible asd? no aortic regurgitation is present. mitral regurgitation is mild to moderate. mild tricuspid regurgitation. mild pulmonary hypertension. * BNP on admission is 1220-->780 * 08/30, pt started on carvedilol 3.125 mg PO BID, Losartan 25 mg PO dailiy * Cardiology, Dr. Pedraza, consulted. * Possible cardiac cath. Lasix 40 mg IVP daily. 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 - Palliative Care consulted: Carol Ann. Airborne Isolation discontinued Pt is full code. She reports that her sons will make decisions for her in case she is incapacitated. Disposition: Airborne isolation discontinued as AFB sputum x3 is negative. Possible cardiac cath by cardiology, Dr. Pedraza.
--- NOTE | 2018-08-30 16:26 | CP.PCM.PN ---
<Maeve Huynh - Last Filed: 08/30/18 18:28> Subjective - Date & Time of Evaluation Date of Evaluation: 08/30/18 Time of Evaluation: 16:25 - Subjective Subjective: Maeve Huynh, PGY-1, Cardiology Progress Note for Dr. Pedraza Patient seen and examined at bedside. Patient had no acute overnight events. Patient reported improvement in shortness of breath with nasal cannula. Patient had no other complaints at this time. Objective - Vital Signs/Intake and Output Vital Signs (last 24 hours): Temp Pulse Resp BP Pulse Ox 97.6 F 109 H 18 100/68 96 08/30/18 15:00 08/30/18 15:00 08/30/18 15:00 08/30/18 15:00 08/30/18 15:00 - Medications Medications: Current Medications Acetylcysteine (Acetylcysteine 20%) 4 ml INH RQ6 TANA Last Admin: 08/30/18 15:08 Dose: Not Given Albuterol/Ipratropium (Duoneb 3 Mg/0.5 Mg (3 Ml) Ud) 3 ml INH RQ4 PRN PRN Reason: Shortness of Breath Last Admin: 08/30/18 13:45 Dose: 3 ml Carvedilol (Coreg) 3.125 mg PO BID [facility] Last Admin: 08/30/18 11:57 Dose: 3.125 mg Furosemide (Lasix) 40 mg IVP DAILY [facility] Last Admin: 08/30/18 11:22 Dose: Not Given Heparin Sodium (Porcine) (Heparin) 5,000 units SC Q8 [facility] Last Admin: 08/30/18 14:53 Dose: Not Given Piperacillin Sod/Tazobactam (Sod 3.375 gm/ Sodium Chloride) 100 mls @ 200 mls/hr IVPB Q6H [facility]; Protocol Last Admin: 08/30/18 12:38 Dose: 200 mls/hr Vancomycin/Sodium Chloride (Vancomycin 1 Gm/Ns 200 Ml) 1 gm in 200 mls @ 166.6 mls/hr IVPB Q24H [facility]; Protocol Stop: 09/04/18 16:01 Losartan Potassium (Cozaar) 25 mg PO DAILY [facility] Last Admin: 08/30/18 11:58 Dose: 25 mg Methylprednisolone (Solu-Medrol) 40 mg IVP Q12 [facility] Last Admin: 08/30/18 11:21 Dose: 40 mg Multivitamins (Hexavitamin) 1 tab PO DAILY [facility] Last Admin: 08/30/18 11:57 Dose: 1 tab Pantoprazole Sodium (Protonix Ec Tab) 20 mg PO DAILY [facility] Last Admin: 08/30/18 11:58 Dose: 20 mg - Labs Labs: 08/30/18 11:04 08/30/18 07:13 PT 12.4 SECONDS (9.7-12.2) H 08/22/18 14:23 INR 1.1 08/22/18 14:23 APTT 30 SECONDS (21-34) 08/22/18 14:23 - Constitutional Appears: Well, Non-toxic, No Acute Distress - Head Exam Head Exam: ATRAUMATIC, NORMAL INSPECTION, NORMOCEPHALIC - Eye Exam Eye Exam: EOMI, PERRL - ENT Exam ENT Exam: Mucous Membranes Moist - Respiratory Exam Respiratory Exam: NORMAL BREATHING PATTERN Additional comments: crackles at bilateral bases - Cardiovascular Exam Cardiovascular Exam: REGULAR RHYTHM, RRR, +S1, +S2 - GI/Abdominal Exam GI & Abdominal Exam: Soft, Normal Bowel Sounds. absent: Tenderness - Extremities Exam Extremities Exam: Full ROM, Normal Inspection, Pedal Edema (trace) - Neurological Exam Neurological Exam: Alert, Awake, CN II-XII Intact, Oriented x3 - Skin Skin Exam: Dry, Intact Assessment and Plan - Assessment and Plan (Free Text) Assessment: Congestive Heart Failure Shortness of Breath Pleural Effusion Plan: Congestive Heart Failure Shortness of Breath Pleural Effusion Echocardiogram: LVEF: 25-30%, atrial septum is aneurysmal, ASD, mild TR, mild pulm HTN Lower extremity duplex of arteries: no DVT and normal valve function Chest CT: left sided effusion with loculated components, questionable mucus plugging changes, dense consolidation/atelectasis in the left lung base EKG: sinus tachycardia with fusion complexes with HR: 104 Likely cardiac catheterization tomorrow. Medications: Coreg 3.125 mg BID Lisinopril 2.5 mg daily Lasix 40 mg daily Cozaar 25 mg daily Vancomycin Zosyn <Harshil Pedraza - Last Filed: 08/31/18 22:33> Objective - Vital Signs/Intake and Output Vital Signs (last 24 hours): Temp Pulse Resp BP Pulse Ox 97.8 F 112 H 18 104/72 97 08/31/18 15:00 08/31/18 15:00 08/31/18 15:00 08/31/18 15:00 08/31/18 15:00 Intake and Output: 08/31/18 09/01/18 18:59 06:59 Intake Total 650 Balance 650 - Medications Medications: Current Medications Acetylcysteine (Acetylcysteine 20%) 4 ml INH RQ6 TANA Last Admin: 08/31/18 13:40 Dose: Not Given Albuterol/Ipratropium (Duoneb 3 Mg/0.5 Mg (3 Ml) Ud) 3 ml INH RQ4 PRN PRN Reason: Shortness of Breath Last Admin: 08/31/18 13:40 Dose: 3 ml Carvedilol (Coreg) 3.125 mg PO BID [facility] Last Admin: 08/31/18 17:48 Dose: 3.125 mg Furosemide (Lasix) 40 mg IVP DAILY [facility] Last Admin: 08/31/18 10:51 Dose: Not Given Heparin Sodium (Porcine) (Heparin) 5,000 units SC Q8 [facility] Last Admin: 08/31/18 21:27 Dose: Not Given Piperacillin Sod/Tazobactam (Sod 3.375 gm/ Sodium Chloride) 100 mls @ 200 mls/hr IVPB Q6H [facility]; Protocol Last Admin: 08/31/18 17:50 Dose: 200 mls/hr Vancomycin/Sodium Chloride (Vancomycin 1 Gm/Ns 200 Ml) 1 gm in 200 mls @ 166.6 mls/hr IVPB Q24H [facility]; Protocol Stop: 09/04/18 16:01 Last Admin: 08/31/18 16:18 Dose: 166.6 mls/hr Lisinopril (Zestril) 2.5 mg PO DAILY [facility] Losartan Potassium (Cozaar) 25 mg PO DAILY [facility] Last Admin: 08/31/18 10:50 Dose: 25 mg Methylprednisolone (Solu-Medrol) 40 mg IVP Q12 [facility] Last Admin: 08/31/18 22:23 Dose: 40 mg Multivitamins (Hexavitamin) 1 tab PO DAILY [facility] Last Admin: 08/31/18 10:50 Dose: 1 tab Pantoprazole Sodium (Protonix Ec Tab) 20 mg PO DAILY [facility] Last Admin: 08/31/18 10:50 Dose: 20 mg - Labs Labs: 08/31/18 08:32 08/31/18 08:32 PT 12.4 SECONDS (9.7-12.2) H 08/22/18 14:23 INR 1.1 08/22/18 14:23 APTT 30 SECONDS (21-34) 08/22/18 14:23 Attending/Attestation - Attestation I have personally seen and examined this patient.: Yes I have fully participated in the care of the patient.: Yes I have reviewed all pertinent clinical information, including history, physical exam and plan: Yes
--- NOTE | 2018-08-30 17:01 | CP.PCM.PN ---
Subjective - Date & Time of Evaluation Date of Evaluation: 08/30/18 Time of Evaluation: 15:20 - Subjective Subjective: Patient seen and examined Alert, awake, No acute distress Patient is still complaining of dry cough that has improved Denies fevers, chest pain, SOB, cough Patient is clear from Pumonology standpoint Afebrile Patient will be undergoing Cardiac Cath tomorrow AFB Negative x3 Myco Negative Physical Exam Oxygen Saturation 100% NC General: NAD Cardio: S1, S2 Resp: Decreased breath sounds Abd: Soft, Nontender A/P 1) Bronchiectasis with (acute) exacerbation -conitnue IV steroids -conitue Antibiotics -Continue Nebulizer treatment -Patient is a high risk bronchoscopy. EF 25 - possible cardiac cath tomorrow - AFB negative - Vest Therapy 2) Pleural Effusion -Acute Objective - Vital Signs/Intake and Output Vital Signs (last 24 hours): Temp Pulse Resp BP Pulse Ox 97.6 F 109 H 18 100/68 96 08/30/18 15:00 08/30/18 15:00 08/30/18 15:00 08/30/18 15:00 08/30/18 15:00 - Medications Medications: Current Medications Acetylcysteine (Acetylcysteine 20%) 4 ml INH RQ6 TANA Last Admin: 08/30/18 15:08 Dose: Not Given Albuterol/Ipratropium (Duoneb 3 Mg/0.5 Mg (3 Ml) Ud) 3 ml INH RQ4 PRN PRN Reason: Shortness of Breath Last Admin: 08/30/18 13:45 Dose: 3 ml Carvedilol (Coreg) 3.125 mg PO BID [facility] Last Admin: 08/30/18 11:57 Dose: 3.125 mg Furosemide (Lasix) 40 mg IVP DAILY [facility] Last Admin: 08/30/18 11:22 Dose: Not Given Heparin Sodium (Porcine) (Heparin) 5,000 units SC Q8 [facility] Last Admin: 08/30/18 14:53 Dose: Not Given Piperacillin Sod/Tazobactam (Sod 3.375 gm/ Sodium Chloride) 100 mls @ 200 mls/hr IVPB Q6H [facility]; Protocol Last Admin: 08/30/18 12:38 Dose: 200 mls/hr Vancomycin/Sodium Chloride (Vancomycin 1 Gm/Ns 200 Ml) 1 gm in 200 mls @ 166.6 mls/hr IVPB Q24H [facility]; Protocol Stop: 09/04/18 16:01 Losartan Potassium (Cozaar) 25 mg PO DAILY [facility] Last Admin: 08/30/18 11:58 Dose: 25 mg Methylprednisolone (Solu-Medrol) 40 mg IVP Q12 [facility] Last Admin: 08/30/18 11:21 Dose: 40 mg Multivitamins (Hexavitamin) 1 tab PO DAILY [facility] Last Admin: 08/30/18 11:57 Dose: 1 tab Pantoprazole Sodium (Protonix Ec Tab) 20 mg PO DAILY [facility] Last Admin: 08/30/18 11:58 Dose: 20 mg - Labs Labs: 08/30/18 11:04 08/30/18 07:13 PT 12.4 SECONDS (9.7-12.2) H 08/22/18 14:23 INR 1.1 08/22/18 14:23 APTT 30 SECONDS (21-34) 08/22/18 14:23 Assessment and Plan (1) Bronchiectasis with (acute) exacerbation Status: Acute (2) Pleural effusion Status: Acute
[2018-08-31] MEDS: Piperacillin/Tazobact 3.375 GM in Sodium Chloride 100 ML IVPB SCH ×4 (01:30→17:50)
[2018-08-31] MEDS: Albuterol-Ipratrop 3 mg / 0.5 (3 ml) UD INH PRN ×3 (01:44→13:40)
[2018-08-31] MEDS: Acetylcysteine 20% Inhal Soln (4ml) INH SCH ×5 (01:44→19:00)
--- NOTE | 2018-08-31 06:54 | CP.PCM.PN ---
Subjective - Date & Time of Evaluation Date of Evaluation: 08/31/18 Time of Evaluation: 07:30 - Subjective Subjective: PGY-1 Medicine Progress Note for Dr. Sergio Montero: Leola #[id number] Patient was seen and examined at bedside. No acute events overnight. Complains of persistent sputum production. Denies fever, chills, chest pain, SOB, abdominal pain, n/v/c/d or urinary complaints, headache, dizziness, lightheadedness. Planned cardiac catheterization discussed with pt. Will return to talk with pt when son is present, as she does not want to make any decisions without him. Objective - Vital Signs/Intake and Output Vital Signs (last 24 hours): Temp Pulse Resp BP Pulse Ox 97.4 F L 94 H 20 116/78 99 08/30/18 23:00 08/30/18 23:00 08/30/18 23:00 08/30/18 23:00 08/30/18 23:00 Intake and Output: 08/30/18 08/31/18 18:59 06:59 Intake Total 1050 Balance 1050 - Medications Medications: Current Medications Acetylcysteine (Acetylcysteine 20%) 4 ml INH RQ6 TANA Last Admin: 08/31/18 01:44 Dose: 4 ml Albuterol/Ipratropium (Duoneb 3 Mg/0.5 Mg (3 Ml) Ud) 3 ml INH RQ4 PRN PRN Reason: Shortness of Breath Last Admin: 08/31/18 01:44 Dose: 3 ml Carvedilol (Coreg) 3.125 mg PO BID TANA Last Admin: 08/30/18 17:15 Dose: Not Given Furosemide (Lasix) 40 mg IVP DAILY TANA Last Admin: 08/30/18 11:22 Dose: Not Given Heparin Sodium (Porcine) (Heparin) 5,000 units SC Q8 TANA Last Admin: 08/31/18 05:51 Dose: Not Given Piperacillin Sod/Tazobactam (Sod 3.375 gm/ Sodium Chloride) 100 mls @ 200 mls/hr IVPB Q6H TANA; Protocol Last Admin: 08/31/18 05:49 Dose: 200 mls/hr Vancomycin/Sodium Chloride (Vancomycin 1 Gm/Ns 200 Ml) 1 gm in 200 mls @ 166.6 mls/hr IVPB Q24H TANA; Protocol Stop: 09/04/18 16:01 Last Admin: 08/30/18 17:00 Dose: 166.6 mls/hr Lisinopril (Zestril) 2.5 mg PO DAILY [facility] Losartan Potassium (Cozaar) 25 mg PO DAILY [facility] Last Admin: 08/30/18 11:58 Dose: 25 mg Methylprednisolone (Solu-Medrol) 40 mg IVP Q12 [facility] Last Admin: 08/30/18 21:04 Dose: Not Given Multivitamins (Hexavitamin) 1 tab PO DAILY [facility] Last Admin: 08/30/18 11:57 Dose: 1 tab Pantoprazole Sodium (Protonix Ec Tab) 20 mg PO DAILY [facility] Last Admin: 08/30/18 11:58 Dose: 20 mg - Labs Labs: 08/30/18 11:04 08/30/18 07:13 PT 12.4 SECONDS (9.7-12.2) H 08/22/18 14:23 INR 1.1 08/22/18 14:23 APTT 30 SECONDS (21-34) 08/22/18 14:23 - Additional Findings Additional findings: - Constitutional Appears: No Acute Distress, Cachectic - Head Exam Head Exam: ATRAUMATIC, NORMOCEPHALIC - Eye Exam Eye Exam: EOMI, Normal appearance - ENT Exam ENT Exam: Mucous Membranes Moist - Respiratory Exam Respiratory Exam: Decreased Breath Sounds, Rales, Rhonchi - Cardiovascular Exam Cardiovascular Exam: +S1, +S2. Absent: tachycardia - GI/Abdominal Exam GI & Abdominal Exam: Soft, Normal Bowel Sounds. absent: Tenderness - Extremities Exam Extremities Exam: Normal Inspection. absent: Calf Tenderness - Neurological Exam Neurological Exam: Alert, Awake, Oriented x3 - Psychiatric Exam Psychiatric exam: Anxious - Skin Skin Exam: Dry, Intact, Normal Color, Warm Assessment and Plan - Assessment and Plan (Free Text) Assessment: Cystic Bronchiectasis, with acute exacerbation Bilateral Pneumonia, L pleural effusion Assessment/Plan * Pulmonary (Dr. Bashir) on consult help appreciated * Sputum for AFB to rule out HEMANT * Nebulizer treatment * Patient will benefit from vest therapy * Pt will not have bronchoscopy at this time due to high risk for anesthesia * Infectious disease, Dr. Land, consulted. * Chest xray (08/22/18): extensive bilateral pulmonary infiltrate. likely bilateral pneumonia. small moderate left pleural effusion. * CT chest (08/22/18): areas of dense consolidation/atelectasis in the left lung base; progressed 03/01/16. Extensive cystic changes seen throughout the left lung and less so the right upper lobe possibly representing cystic bronchiectasis. Left sided effusion possibly with some loculated components. mucous plugging changes or compressive effects on the proximal branches of the left upper and lower lobe of bronchi. mild fatty hepatic infiltration. gastric wall thickening in part of incomplete distension. markedly distended urinary bladder, rule out urinary retention * ANCA pending * c ANCA titer pending * Proteinase 3 <1.0 * myeloperoxidase <1.0 * b DGlucan negative * indeterminate quantiferon * Aspergillus flavus negative * Aspergillus fumigatus negative * Aspergillus niger negative * HIV negative * influenza negative * Hepatitis negative * Blood culture (08/22/18): no growth after 5 days X2 * Myobacterial culture (08/23/18): negative for AFB. prelim * Myobacterial culture (08/25/18): negative for AFB. prelim * Myobacterial culture (08/28/18): negative for AFB. prelim * Mycobacterium complex PCR negative * Solumedrol 40mg IV Q12H * Zosyn 3.375 IVPB Q6H (active since 08/22/18) * Vancomycin 1g IVPB Q12H (active since 08/22/18), changed to Vancomycin 1g IVPB q24h as pt's vancomycin trough was 22.6 * airborne precautions discontinued as three sputum specimens have been negative for AFB * continue mucomyst INH, chest physiotherapy * Pt continues to be afebrile Newly diagnosed Heart Failure with Reduced Ejection Fraction Assessment/Plan * Echocardiogram (08/27/18) left ventricular systolic function is severely impaired. ejection fraction is 25-30%. atrial septum aneurysmal. possible asd? no aortic regurgitation is present. mitral regurgitation is mild to moderate. mild tricuspid regurgitation. mild pulmonary hypertension. * BNP on admission is 1220-->780 * 08/30, pt started on carvedilol 3.125 mg PO BID, Losartan 25 mg PO daily * Cardiology, Dr. Pedraza, consulted. * I went in depth for the reason why pt needs a cardiac cath, and explained the procedure to the pt with the help of the [employer] coin machine collector supervisor. Pt seems to understand procedure and planned course of treatment going forward. However, pt would like to discuss everything again when son, Javi, is present. D-dimer elevation Assessment/Plan * DDimer noted to be 993 in the ED * CT chest (08/22/18): areas of dense consolidation/atelectasis in the left lung base; progressed 03/01/16. Entensive cystic changes seen throughout the left lung and less so the right upper lobe possibly representing cystic bronchiectasis. Left sided effusion possibly with some loculated components. mucous plugging changes or compressive effects on the proximal branches of the left upper and lower lobe of bronchi. mild fatty hepatic infiltration. gastric wall thickening in part of incomplete distension. markedly distended urinary bladder, rule out urinary retention * Pt's ABG was normal, satting well on room air, resolution of sob * Venous doppler (08/26) negative Cachexia Assessment/Plan * 30lb weight loss in 2 months * Dungeon Master referral PPx - DVT ppx: Heparin 5000u SC q8, SCDs - GI: Protonix 40mg po daily - Diet: HHD, MVI - PT eval shows dependent and steady gait. - Palliative Care consulted: Carol Ann. Airborne Isolation discontinued Pt is full code. She reports that her sons will make decisions for her in case she is incapacitated. Disposition: Airborne isolation discontinued as AFB sputum x3 is negative. IV abx as per ID. Continue mucolytic/chest physiotherapy. Cardiac catheterization as per cardiology, Dr. Pedraza. Pt still needs to consent for procedure.
[2018-08-31 08:45] LABS: BASO % 0.2 % (0.0-2.0); EOS # 0.1 K/uL (0.0-0.7); EOS % 0.5 % (0.0-4.0); HEMOGLOBIN 12.7 g/dL (11.0-16.0); LYMPH # 1.8 K/uL (1.0-4.3); LYMPH % 10.2 % (20.0-40.0); MEAN CELL VOLUME 78.4 fL (81.0-99.0); MEAN CORPUSCULAR HGB CONC 31.9 g/dL (33.0-37.0); MEAN PLATELET VOLUME 9.7 fL (7.2-11.7); MONO # 1.6 K/uL (0.0-0.8); MONO % 9.2 % (0.0-10.0); NEUT % 79.9 % (50.0-75.0); RBC 5.06 Mil/uL (3.80-5.20); RED CELL DISTRIBUTION WIDTH 15.9 % (11.5-14.5); WHITE BLOOD COUNT 17.5 K/uL (4.8-10.8)
[2018-08-31 09:13] LABS: ALB/GLOB RATIO 1.1 (1.0-2.1); ALBUMIN 3.6 g/dL (3.5-5.0); ALT/SGPT 26 U/L (9-52); AST/SGOT 37 U/L (14-36); BLOOD UREA NITROGEN 20 mg/dL (7-17); CALCIUM 9.9 mg/dl (8.6-10.4); GFR NON-AFRICAN AMERICAN > 60
--- NOTE | 2018-08-31 10:46 | CP.PCM.PN ---
<Maeve Huynh - Last Filed: 08/31/18 16:13> Subjective - Date & Time of Evaluation Date of Evaluation: 08/31/18 Time of Evaluation: 10:43 - Subjective Subjective: Maeve Huynh, PGY-1, Cardiology Progress Note for Dr. Pedraza Patient seen and examined at bedside. Patient had no acute overnight events. Patient reported improvement in shortness of breath with nasal cannula. Patient had no other complaints at this time. Objective - Vital Signs/Intake and Output Vital Signs (last 24 hours): Temp Pulse Resp BP Pulse Ox 97.6 F 87 20 143/89 98 08/31/18 07:34 08/31/18 07:34 08/31/18 07:34 08/31/18 07:34 08/31/18 07:34 Intake and Output: 08/31/18 08/31/18 06:59 18:59 Intake Total 1050 Balance 1050 - Medications Medications: Current Medications Acetylcysteine (Acetylcysteine 20%) 4 ml INH RQ6 TANA Last Admin: 08/31/18 08:15 Dose: 4 ml Albuterol/Ipratropium (Duoneb 3 Mg/0.5 Mg (3 Ml) Ud) 3 ml INH RQ4 PRN PRN Reason: Shortness of Breath Last Admin: 08/31/18 08:15 Dose: 3 ml Carvedilol (Coreg) 3.125 mg PO BID TANA Last Admin: 08/30/18 17:15 Dose: Not Given Furosemide (Lasix) 40 mg IVP DAILY [facility]NA Last Admin: 08/30/18 11:22 Dose: Not Given Heparin Sodium (Porcine) (Heparin) 5,000 units SC Q8 TANA Last Admin: 08/31/18 05:51 Dose: Not Given Piperacillin Sod/Tazobactam (Sod 3.375 gm/ Sodium Chloride) 100 mls @ 200 mls/hr IVPB Q6H TANA; Protocol Last Admin: 08/31/18 05:49 Dose: 200 mls/hr Vancomycin/Sodium Chloride (Vancomycin 1 Gm/Ns 200 Ml) 1 gm in 200 mls @ 166.6 mls/hr IVPB Q24H TANA; Protocol Stop: 09/04/18 16:01 Last Admin: 08/30/18 17:00 Dose: 166.6 mls/hr Lisinopril (Zestril) 2.5 mg PO DAILY [facility] Losartan Potassium (Cozaar) 25 mg PO DAILY [facility] Last Admin: 08/30/18 11:58 Dose: 25 mg Methylprednisolone (Solu-Medrol) 40 mg IVP Q12 [facility] Last Admin: 08/30/18 21:04 Dose: Not Given Multivitamins (Hexavitamin) 1 tab PO DAILY [facility] Last Admin: 08/30/18 11:57 Dose: 1 tab Pantoprazole Sodium (Protonix Ec Tab) 20 mg PO DAILY [facility] Last Admin: 08/30/18 11:58 Dose: 20 mg - Labs Labs: 08/31/18 08:32 08/31/18 08:32 PT 12.4 SECONDS (9.7-12.2) H 08/22/18 14:23 INR 1.1 08/22/18 14:23 APTT 30 SECONDS (21-34) 08/22/18 14:23 - Constitutional Appears: Well, Non-toxic, No Acute Distress - Head Exam Head Exam: ATRAUMATIC, NORMAL INSPECTION, NORMOCEPHALIC - Eye Exam Eye Exam: EOMI, PERRL - ENT Exam ENT Exam: Mucous Membranes Moist - Respiratory Exam Respiratory Exam: NORMAL BREATHING PATTERN Additional comments: crackles at bilateral bases - Cardiovascular Exam Cardiovascular Exam: REGULAR RHYTHM, RRR, +S1, +S2 - GI/Abdominal Exam GI & Abdominal Exam: Soft, Normal Bowel Sounds. absent: Tenderness - Extremities Exam Extremities Exam: Full ROM, Normal Inspection, Pedal Edema (trace) - Neurological Exam Neurological Exam: Alert, Awake, CN II-XII Intact, Oriented x3 - Skin Skin Exam: Dry, Intact Assessment and Plan - Assessment and Plan (Free Text) Assessment: Congestive Heart Failure Shortness of Breath Pleural Effusion Plan: Congestive Heart Failure Shortness of Breath Pleural Effusion Echocardiogram: LVEF: 25-30%, atrial septum is aneurysmal, ASD, mild TR, mild pulm HTN Lower extremity duplex of arteries: no DVT and normal valve function Chest CT: left sided effusion with loculated components, questionable mucus plugging changes, dense consolidation/atelectasis in the left lung base EKG: sinus tachycardia with fusion complexes with HR: 104 HgbA1c: 6.4 Tropx1: negative BNP: 780 from 1220 TG panel unremarkable TSH: 0.28 T4: 1.94 Likely cardiac catheterization this Wednesday Medications: Coreg 3.125 mg BID Lisinopril 2.5 mg daily Lasix 40 mg daily Cozaar 25 mg daily Vancomycin Zosyn <Harshil Pedraza - Last Filed: 08/31/18 22:32> Objective - Vital Signs/Intake and Output Vital Signs (last 24 hours): Temp Pulse Resp BP Pulse Ox 97.8 F 112 H 18 104/72 97 08/31/18 15:00 08/31/18 15:00 08/31/18 15:00 08/31/18 15:00 08/31/18 15:00 Intake and Output: 08/31/18 09/01/18 18:59 06:59 Intake Total 650 Balance 650 - Medications Medications: Current Medications Acetylcysteine (Acetylcysteine 20%) 4 ml INH RQ6 TANA Last Admin: 08/31/18 13:40 Dose: Not Given Albuterol/Ipratropium (Duoneb 3 Mg/0.5 Mg (3 Ml) Ud) 3 ml INH RQ4 PRN PRN Reason: Shortness of Breath Last Admin: 08/31/18 13:40 Dose: 3 ml Carvedilol (Coreg) 3.125 mg PO BID [facility] Last Admin: 08/31/18 17:48 Dose: 3.125 mg Furosemide (Lasix) 40 mg IVP DAILY [facility] Last Admin: 08/31/18 10:51 Dose: Not Given Heparin Sodium (Porcine) (Heparin) 5,000 units SC Q8 TANA Last Admin: 08/31/18 21:27 Dose: Not Given Piperacillin Sod/Tazobactam (Sod 3.375 gm/ Sodium Chloride) 100 mls @ 200 mls/hr IVPB Q6H TANA; Protocol Last Admin: 08/31/18 17:50 Dose: 200 mls/hr Vancomycin/Sodium Chloride (Vancomycin 1 Gm/Ns 200 Ml) 1 gm in 200 mls @ 166.6 mls/hr IVPB Q24H TANA; Protocol Stop: 09/04/18 16:01 Last Admin: 08/31/18 16:18 Dose: 166.6 mls/hr Lisinopril (Zestril) 2.5 mg PO DAILY [facility] Losartan Potassium (Cozaar) 25 mg PO DAILY [facility] Last Admin: 08/31/18 10:50 Dose: 25 mg Methylprednisolone (Solu-Medrol) 40 mg IVP Q12 [facility] Last Admin: 08/31/18 22:23 Dose: 40 mg Multivitamins (Hexavitamin) 1 tab PO DAILY [facility] Last Admin: 08/31/18 10:50 Dose: 1 tab Pantoprazole Sodium (Protonix Ec Tab) 20 mg PO DAILY [facility] Last Admin: 08/31/18 10:50 Dose: 20 mg - Labs Labs: 08/31/18 08:32 08/31/18 08:32 PT 12.4 SECONDS (9.7-12.2) H 08/22/18 14:23 INR 1.1 08/22/18 14:23 APTT 30 SECONDS (21-34) 08/22/18 14:23 Attending/Attestation - Attestation I have personally seen and examined this patient.: Yes I have fully participated in the care of the patient.: Yes I have reviewed all pertinent clinical information, including history, physical exam and plan: Yes
[2018-08-31] MEDS: Pantoprazole 20 mg EC Tab PO SCH (10:50)
[2018-08-31] MEDS: Multiple Vitamins Tab PO SCH (10:50)
[2018-08-31] MEDS: MethylPREDNISolone 40 mg Vial IVP SCH ×2 (10:51→22:23)
--- NOTE | 2018-08-31 16:16 | CP.PCM.PN ---
Subjective - Date & Time of Evaluation Date of Evaluation: 08/31/18 Time of Evaluation: 15:00 - Subjective Subjective: Patient seen and examined Alert, awake, No acute distress Patient is still complaining of cough that has improved Denies fevers, chest pain, SOB, productive cough Patient is clear from Pumonology standpoint Afebrile Patient was not able to undergo Cardiac Cath today Objective - Vital Signs/Intake and Output Vital Signs (last 24 hours): Temp Pulse Resp BP Pulse Ox 97.6 F 87 20 143/89 98 08/31/18 07:34 08/31/18 07:34 08/31/18 07:34 08/31/18 07:34 08/31/18 07:34 Intake and Output: 08/31/18 08/31/18 06:59 18:59 Intake Total 1050 Balance 1050 - Medications Medications: Current Medications Acetylcysteine (Acetylcysteine 20%) 4 ml INH RQ6 TANA Last Admin: 08/31/18 13:40 Dose: Not Given Albuterol/Ipratropium (Duoneb 3 Mg/0.5 Mg (3 Ml) Ud) 3 ml INH RQ4 PRN PRN Reason: Shortness of Breath Last Admin: 08/31/18 13:40 Dose: 3 ml Carvedilol (Coreg) 3.125 mg PO BID [facility] Last Admin: 08/31/18 10:50 Dose: 3.125 mg Furosemide (Lasix) 40 mg IVP DAILY [facility] Last Admin: 08/31/18 10:51 Dose: Not Given Heparin Sodium (Porcine) (Heparin) 5,000 units SC Q8 [facility] Last Admin: 08/31/18 13:51 Dose: Not Given Piperacillin Sod/Tazobactam (Sod 3.375 gm/ Sodium Chloride) 100 mls @ 200 mls/hr IVPB Q6H TANA; Protocol Last Admin: 08/31/18 13:32 Dose: 200 mls/hr Vancomycin/Sodium Chloride (Vancomycin 1 Gm/Ns 200 Ml) 1 gm in 200 mls @ 166.6 mls/hr IVPB Q24H TANA; Protocol Stop: 09/04/18 16:01 Last Admin: 08/30/18 17:00 Dose: 166.6 mls/hr Lisinopril (Zestril) 2.5 mg PO DAILY [facility] Losartan Potassium (Cozaar) 25 mg PO DAILY [facility] Last Admin: 08/31/18 10:50 Dose: 25 mg Methylprednisolone (Solu-Medrol) 40 mg IVP Q12 [facility] Last Admin: 08/31/18 10:51 Dose: 40 mg Multivitamins (Hexavitamin) 1 tab PO DAILY [facility] Last Admin: 08/31/18 10:50 Dose: 1 tab Pantoprazole Sodium (Protonix Ec Tab) 20 mg PO DAILY [facility] Last Admin: 08/31/18 10:50 Dose: 20 mg - Labs Labs: 08/31/18 08:32 08/31/18 08:32 PT 12.4 SECONDS (9.7-12.2) H 08/22/18 14:23 INR 1.1 08/22/18 14:23 APTT 30 SECONDS (21-34) 08/22/18 14:23 Assessment and Plan (1) Bronchiectasis with (acute) exacerbation Status: Acute (2) Pleural effusion Status: Acute
[2018-08-31] MEDS: Vancomycin 1 gm/NS 200 ml 1 GM/200 ML BAG IVPB SCH (16:18)
--- NOTE | 2018-08-31 18:31 | CARD ---
APPROVED REPORT Date of service: 08/30/2018 EKG Measurement Heart [id number] <Conclusion> Sinus tachycardia with fusion complexes Possible Left atrial enlargement Nonspecific T wave abnormality Abnormal ECG
[2018-09-01] MEDS: Piperacillin/Tazobact 3.375 GM in Sodium Chloride 100 ML IVPB SCH ×4 (00:20→19:33)
[2018-09-01] MEDS: Acetylcysteine 20% Inhal Soln (4ml) INH SCH ×4 (01:20→19:30)
--- NOTE | 2018-09-01 07:46 | CP.PCM.PN ---
Subjective - Date & Time of Evaluation Date of Evaluation: 09/01/18 Time of Evaluation: 11:54 - Subjective Subjective: PGY-1 Medicine Progress Note for Dr. Hill Patient was seen and examined at bedside. No acute events overnight. Pt's use of PEP valve is helping expectorate the congestion in her chest. Denies fever, chills, chest pain, SOB, abdominal pain, n/v/c/d or urinary complaints, headache, dizziness, lightheadedness. PT to go for cath today in the afternoon. Objective - Vital Signs/Intake and Output Vital Signs (last 24 hours): Temp Pulse Resp BP Pulse Ox 97.5 F L 72 18 133/81 96 08/31/18 23:00 09/01/18 04:00 08/31/18 23:00 08/31/18 23:00 08/31/18 23:00 Intake and Output: 09/01/18 09/01/18 06:59 18:59 Intake Total 850 Balance 850 - Medications Medications: Current Medications Acetylcysteine (Acetylcysteine 20%) 4 ml INH RQ6 TANA Last Admin: 09/01/18 01:20 Dose: Not Given Albuterol/Ipratropium (Duoneb 3 Mg/0.5 Mg (3 Ml) Ud) 3 ml INH RQ4 PRN PRN Reason: Shortness of Breath Last Admin: 08/31/18 13:40 Dose: 3 ml Carvedilol (Coreg) 3.125 mg PO BID [facility] Last Admin: 08/31/18 17:48 Dose: 3.125 mg Furosemide (Lasix) 40 mg IVP DAILY [facility] Last Admin: 08/31/18 10:51 Dose: Not Given Heparin Sodium (Porcine) (Heparin) 5,000 units SC Q8 [facility] Last Admin: 09/01/18 05:51 Dose: Not Given Piperacillin Sod/Tazobactam (Sod 3.375 gm/ Sodium Chloride) 100 mls @ 200 mls/hr IVPB Q6H [facility]; Protocol Last Admin: 09/01/18 05:50 Dose: 200 mls/hr Vancomycin/Sodium Chloride (Vancomycin 1 Gm/Ns 200 Ml) 1 gm in 200 mls @ 166.6 mls/hr IVPB Q24H TANA; Protocol Stop: 09/04/18 16:01 Last Admin: 03/27/19 16:18 Dose: 166.6 mls/hr Lisinopril (Zestril) 2.5 mg PO DAILY [facility] Losartan Potassium (Cozaar) 25 mg PO DAILY [facility] Last Admin: 08/31/18 10:50 Dose: 25 mg Methylprednisolone (Solu-Medrol) 40 mg IVP Q12 [facility] Last Admin: 08/31/18 22:23 Dose: 40 mg Multivitamins (Hexavitamin) 1 tab PO DAILY [facility] Last Admin: 08/31/18 10:50 Dose: 1 tab Pantoprazole Sodium (Protonix Ec Tab) 20 mg PO DAILY [facility] Last Admin: 08/31/18 10:50 Dose: 20 mg - Labs Labs: 08/31/18 08:32 08/31/18 08:32 PT 12.4 SECONDS (9.7-12.2) H 08/22/18 14:23 INR 1.1 08/22/18 14:23 APTT 30 SECONDS (21-34) 08/22/18 14:23 - Additional Findings Additional findings: - Constitutional Appears: No Acute Distress, Cachectic - Head Exam Head Exam: ATRAUMATIC, NORMOCEPHALIC - Eye Exam Eye Exam: EOMI, Normal appearance - ENT Exam ENT Exam: Mucous Membranes Moist - Respiratory Exam Respiratory Exam: Decreased Breath Sounds, Rales, Rhonchi - Cardiovascular Exam Cardiovascular Exam: +S1, +S2, Tachycardia. Sinus tachycardia on tele monitor. - GI/Abdominal Exam GI & Abdominal Exam: Soft, Normal Bowel Sounds. absent: Tenderness - Extremities Exam Extremities Exam: Normal Inspection. absent: Calf Tenderness - Neurological Exam Neurological Exam: Alert, Awake, Oriented x3 - Psychiatric Exam Psychiatric exam: Anxious - Skin Skin Exam: Dry, Intact, Normal Color, Warm Assessment and Plan - Assessment and Plan (Free Text) Assessment: Cystic Bronchiectasis, with acute exacerbation Bilateral Pneumonia, L pleural effusion Assessment/Plan * Pulmonary (Dr. Bashir) on consult help appreciated * Nebulizer treatment * Patient will benefit from vest therapy * Pt will not have bronchoscopy at this time due to high risk for anesthesia * Infectious disease, Dr. Land, consulted. * Chest xray (08/22/18): extensive bilateral pulmonary infiltrate. likely bilateral pneumonia. small moderate left pleural effusion. * CT chest (08/22/18): areas of dense consolidation/atelectasis in the left lung base; progressed 03/01/16. Extensive cystic changes seen throughout the left lung and less so the right upper lobe possibly representing cystic bronchiectasis. Left sided effusion possibly with some loculated components. mucous plugging changes or compressive effects on the proximal branches of the left upper and lower lobe of bronchi. mild fatty hepatic infiltration. gastric wall thickening in part of incomplete distension. markedly distended urinary bladder, rule out urinary retention * ANCA pending * c ANCA titer pending * Proteinase 3 <1.0 * myeloperoxidase <1.0 * b DGlucan negative * indeterminate quantiferon * Aspergillus flavus negative * Aspergillus fumigatus negative * Aspergillus niger negative * HIV negative * influenza negative * Hepatitis negative * Blood culture (08/22/18): no growth after 5 days X2 * Myobacterial culture (08/23/18): negative for AFB. prelim * Myobacterial culture (08/25/18): negative for AFB. prelim * Myobacterial culture (08/28/18): negative for AFB. prelim * Mycobacterium complex PCR negative * Solumedrol 40mg IV Q12H * Zosyn 3.375 IVPB Q6H (active since 08/22/18) * Vancomycin 1g IVPB Q12H (active since 08/22/18), changed to Vancomycin 1g IVPB q24h as pt's vancomycin trough was 22.6 * airborne precautions discontinued as three sputum specimens have been negative for AFB * continue mucomyst INH, chest physiotherapy * Pt continues to be afebrile Newly diagnosed Heart Failure with Reduced Ejection Fraction Assessment/Plan * Echocardiogram (08/27/18) left ventricular systolic function is severely impaired. ejection fraction is 25-30%. atrial septum aneurysmal. possible asd? no aortic regurgitation is present. mitral regurgitation is mild to moderate. mild tricuspid regurgitation. mild pulmonary hypertension. * BNP on admission is 1220-->780 * 08/30, pt started on carvedilol 3.125 mg PO BID, Losartan 25 mg PO daily * Cardiology, Dr. Pedraza, consulted. * To go for cath at 4 pm today D-dimer elevation Assessment/Plan * DDimer noted to be 993 in the ED * CT chest (08/22/18): areas of dense consolidation/atelectasis in the left lung base; progressed 03/01/16. Entensive cystic changes seen throughout the left lung and less so the right upper lobe possibly representing cystic bronchiectasis. Left sided effusion possibly with some loculated components. mucous plugging changes or compressive effects on the proximal branches of the left upper and lower lobe of bronchi. mild fatty hepatic infiltration. gastric wall thickening in part of incomplete distension. markedly distended urinary bladder, rule out urinary retention * Pt's ABG was normal, satting well on room air, resolution of sob * Venous doppler (08/26) negative Cachexia Assessment/Plan * 30lb weight loss in 2 months * [employer] referral PPx - DVT ppx: Heparin 5000u SC q8, SCDs - GI: Protonix 40mg po daily - Diet: HHD, MVI - PT eval shows dependent and steady gait. - Palliative Care consulted: Carol Ann. - Aspiration precautions due to increased mucus production Airborne Isolation discontinued Pt is full code. She reports that her sons will make decisions for her in case she is incapacitated. Disposition: Continue IV abx as per ID. Continue mucolytic/chest physiotherapy. Cardiac catheterization this afternoon at 4 pm.
[2018-09-01] MEDS: Pantoprazole 20 mg EC Tab PO SCH (10:05)
[2018-09-01] MEDS: MethylPREDNISolone 40 mg Vial IVP SCH ×3 (10:05→22:51)
[2018-09-01] MEDS: Multiple Vitamins Tab PO SCH (10:06)
[2018-09-01 11:52] LABS: BASO % 0.3 % (0.0-2.0); HEMOGLOBIN 12.8 g/dL (11.0-16.0); MEAN CORPUSCULAR HEMOGLOBIN 25.5 pg (27.0-31.0); MEAN CORPUSCULAR HGB CONC 32.2 g/dL (33.0-37.0); MONO # 1.2 K/uL (0.0-0.8); MONO % 7.6 % (0.0-10.0); NEUT % 80.1 % (50.0-75.0); RBC 5.01 Mil/uL (3.80-5.20); RED CELL DISTRIBUTION WIDTH 16.2 % (11.5-14.5); WHITE BLOOD COUNT 16.3 K/uL (4.8-10.8)
[2018-09-01 12:18] LABS: ALB/GLOB RATIO 1.2 (1.0-2.1); ALBUMIN 3.8 g/dL (3.5-5.0); ALT/SGPT 31 U/L (9-52); AST/SGOT 61 U/L (14-36); BLOOD UREA NITROGEN 23 mg/dL (7-17); CALCIUM 9.8 mg/dl (8.6-10.4); GFR NON-AFRICAN AMERICAN > 60
[2018-09-01] MEDS: Albuterol-Ipratrop 3 mg / 0.5 (3 ml) UD INH PRN (13:25)
[2018-09-01] MEDS: Vancomycin 1 gm/NS 200 ml 1 GM/200 ML BAG IVPB SCH (16:00)
[2018-09-01] MEDS ORDERED: Verapamil 2 ML ONE (16:26)
[2018-09-01] MEDS ORDERED: Nitroglycerin 50mg in D5W 50 MG/250 ML BOTTLE IV ONE (16:27)
[2018-09-01] MEDS ORDERED: Iodixanol 320 MG/ML 100 ML BOTTLE IV ONE (16:27)
[2018-09-01] MEDS ORDERED: Midazolam 2 MG/2 ML VIAL ONE ×2 (17:43→18:10)
[2018-09-01 18:32] LABS: ARTERIAL BLOOD GAS HEMOGLOBIN 11.6 g/dL (11.7-17.4); ARTERIAL BLOOD GAS O2 SAT 68.5 % (95-98); ARTERIAL BLOOD GAS PCO2 56 mm/Hg (35-45); ARTERIAL BLOOD GAS PH 7.39 (7.35-7.45); ARTERIAL BLOOD GAS PO2 33 mm/Hg (80-100); ARTERIAL BLOOD GAS TCO2 35.6 mmol/L (22-28)
[2018-09-01 18:38] LABS: ARTERIAL BLOOD GAS HCO3 31.5 mmol/L (21-28); ARTERIAL BLOOD GAS HEMOGLOBIN 12.3 g/dL (11.7-17.4); ARTERIAL BLOOD GAS O2 SAT 66.5 % (95-98); ARTERIAL BLOOD GAS PCO2 55 mm/Hg (35-45); ARTERIAL BLOOD GAS PH 7.42 (7.35-7.45); ARTERIAL BLOOD GAS PO2 33 mm/Hg (80-100); ARTERIAL BLOOD GAS TCO2 37.4 mmol/L (22-28)
--- NOTE | 2018-09-01 19:23 | CP.PCM.PN ---
Subjective - Date & Time of Evaluation Date of Evaluation: 09/01/18 Time of Evaluation: 19:20 - Subjective Subjective: Maeve Huynh, PGY-1, Cardiology Progress Note for Dr. Pedraza Patient seen and evaluated at bedside. Patient had no acute overnight events. Patient denied any acute symptoms prior to cardiac catheterization today. Objective - Vital Signs/Intake and Output Vital Signs (last 24 hours): Temp Pulse Resp BP Pulse Ox 97.6 F 98 H 18 133/83 96 09/01/18 15:00 09/01/18 15:00 09/01/18 15:00 09/01/18 15:00 09/01/18 15:00 Intake and Output: 09/01/18 09/02/18 18:59 06:59 Intake Total 340 Balance 340 - Medications Medications: Current Medications Acetylcysteine (Acetylcysteine 20%) 4 ml INH RQ6 [facility]NA Last Admin: 09/01/18 13:25 Dose: 4 ml Albuterol/Ipratropium (Duoneb 3 Mg/0.5 Mg (3 Ml) Ud) 3 ml INH RQ4 PRN PRN Reason: Shortness of Breath Last Admin: 09/01/18 13:25 Dose: 3 ml Carvedilol (Coreg) 3.125 mg PO BID [facility]NA Last Admin: 09/01/18 10:06 Dose: 3.125 mg Furosemide (Lasix) 40 mg IVP DAILY [facility] Last Admin: 09/01/18 10:08 Dose: Not Given Heparin Sodium (Porcine) (Heparin) 5,000 units SC Q8 [facility] Last Admin: 09/01/18 14:42 Dose: Not Given Piperacillin Sod/Tazobactam (Sod 3.375 gm/ Sodium Chloride) 100 mls @ 200 mls/hr IVPB Q6H [facility]; Protocol Last Admin: 09/01/18 11:47 Dose: 200 mls/hr Vancomycin/Sodium Chloride (Vancomycin 1 Gm/Ns 200 Ml) 1 gm in 200 mls @ 166.6 mls/hr IVPB Q24H [facility]; Protocol Stop: 09/04/18 16:01 Last Admin: 08/31/18 16:18 Dose: 166.6 mls/hr Losartan Potassium (Cozaar) 25 mg PO DAILY [facility] Last Admin: 09/01/18 10:05 Dose: 25 mg Methylprednisolone (Solu-Medrol) 40 mg IVP Q12 [facility] Last Admin: 09/01/18 10:05 Dose: 40 mg Multivitamins (Hexavitamin) 1 tab PO DAILY [facility] Last Admin: 09/01/18 10:06 Dose: 1 tab Pantoprazole Sodium (Protonix Ec Tab) 20 mg PO DAILY [facility] Last Admin: 09/01/18 10:05 Dose: 20 mg - Labs Labs: 09/01/18 11:38 09/01/18 11:38 PT 12.4 SECONDS (9.7-12.2) H 08/22/18 14:23 INR 1.1 08/22/18 14:23 APTT 30 SECONDS (21-34) 08/22/18 14:23 - Constitutional Appears: Well, Non-toxic, No Acute Distress - Head Exam Head Exam: ATRAUMATIC, NORMAL INSPECTION, NORMOCEPHALIC - Eye Exam Eye Exam: EOMI, PERRL - ENT Exam ENT Exam: Mucous Membranes Moist - Respiratory Exam Respiratory Exam: NORMAL BREATHING PATTERN Additional comments: crackles at bilateral bases - Cardiovascular Exam Cardiovascular Exam: REGULAR RHYTHM, RRR, +S1, +S2 - GI/Abdominal Exam GI & Abdominal Exam: Soft, Normal Bowel Sounds. absent: Tenderness - Extremities Exam Extremities Exam: Full ROM, Normal Inspection, Pedal Edema (trace) - Neurological Exam Neurological Exam: Alert, Awake, CN II-XII Intact, Oriented x3 - Skin Skin Exam: Dry, Intact Assessment and Plan (1) Congestive heart failure Assessment & Plan: Echocardiogram: LVEF: 25-30%, atrial septum is aneurysmal, ASD, mild TR, mild pulm HTN Lower extremity duplex of arteries: no DVT and normal valve function Chest CT: left sided effusion with loculated components, questionable mucus plugging changes, dense consolidation/atelectasis in the left lung base EKG: sinus tachycardia with fusion complexes with HR: 104 HgbA1c: 6.4 Tropx1: negative BNP: 780 from 1220 Cardiac catheterization today showed no significant stenosis of coronary arteries. Patient likely has nonischemic cardiomyopathy. Continue with coreg, lisinopril, and lasix. Status: Acute
[2018-09-02] MEDS: Acetylcysteine 20% Inhal Soln (4ml) INH SCH ×2 (01:44→07:40)
--- NOTE | 2018-09-02 03:35 | CARDCATH ---
PROCEDURE DATE: 09/01/2018 INDICATION: Ms. Jamil Flower is a 68-year-old female, admitted with worsening shortness of breath with diagnoses of possible pneumonia and bronchitis. Chest x-ray showed bronchiectasis. She subsequently underwent a CT of thorax which showed bilateral emphysematous changes in the lungs. The patient subsequently had an echocardiogram, which showed new-onset CHF with suppressed ejection fraction. Chest x-ray also revealed bilateral pleural effusion. Therefore, she was brought to the lab for evaluation of new-onset CHF and cardiomyopathy. PROCEDURE PERFORMED: Complete heart catheterization with selective left and right coronary angiograms, right heart catheterization with hemodynamics and saturations, 6-[place] right femoral arterial access, 7-[place] right femoral venous access, Mynx closure device for hemostasis. RIGHT HEART CATHETERIZATION FINDINGS: RA mean 6 mmHg. RVEDP was 10. PA pressure 40/20 with a mean of 25. Pulmonary capillary wedge pressure was 14. Right EDP 8. LEFT HEART CATHETERIZATION FINDINGS: LVEDP was 14. Ejection fraction was 40% to 45%. CORONARY ANATOMY: Left main is a large-sized vessel that bifurcates to left anterior descending and left circumflex coronary artery. Left main is free of any obstructive disease. LAD is free of any obstructive disease, gives off two medium-sized diagonal branches free of any obstructive disease. Left circumflex runs in the AV groove, gives off one medium-sized obtuse marginal branch and free of any obstructive disease. RCA is a large-sized vessel, gives off right PDA and PLV branches free of any obstructive disease. IMPRESSION: 1. Nonobstructive cardiomyopathy. 2. Nonischemic dilated cardiomyopathy, normal filling pressures. RECOMMENDATIONS: Using the Sandy equation, cardiac output was calculated to be . Guideline directed therapy for CHF. Harshil Pedraza MD
[2018-09-02] MEDS: Piperacillin/Tazobact 3.375 GM in Sodium Chloride 100 ML IVPB SCH ×5 (05:53→23:45)
[2018-09-02 07:45] LABS: BASO % 0.1 % (0.0-2.0); LYMPH # 1.2 K/uL (1.0-4.3); LYMPH % 9.1 % (20.0-40.0); MEAN CELL VOLUME 77.8 fL (81.0-99.0); MEAN CORPUSCULAR HGB CONC 32.1 g/dL (33.0-37.0); MONO # 0.9 K/uL (0.0-0.8); MONO % 6.8 % (0.0-10.0); NEUT # 11.4 K/uL (1.8-7.0); NRBC % 0.1 % (0.0-2.0); PLATELET COUNT 286 K/uL (130-400); RBC 4.79 Mil/uL (3.80-5.20); WHITE BLOOD COUNT 13.5 K/uL (4.8-10.8)
[2018-09-02 08:06] LABS: ALB/GLOB RATIO 1.1 (1.0-2.1); ALBUMIN 3.5 g/dL (3.5-5.0); ALT/SGPT 27 U/L (9-52); AST/SGOT 41 U/L (14-36); BLOOD UREA NITROGEN 24 mg/dL (7-17); CALCIUM 9.6 mg/dl (8.6-10.4); GFR NON-AFRICAN AMERICAN > 60
--- NOTE | 2018-09-02 08:39 | CP.PCM.PN ---
Subjective - Date & Time of Evaluation Date of Evaluation: 09/02/18 Time of Evaluation: 08:36 - Subjective Subjective: Maeve Huynh, PGY-1, Cardiology Progress Note for Dr. Pedraza Patient seen and evaluated at bedside. Patient had no acute overnight events. Patient denies any symptoms at this time. Objective - Vital Signs/Intake and Output Vital Signs (last 24 hours): Temp Pulse Resp BP Pulse Ox 97.8 F 88 20 121/77 96 09/02/18 08:00 09/02/18 08:00 09/02/18 08:00 09/02/18 08:00 09/02/18 08:00 Intake and Output: 09/02/18 09/02/18 06:59 18:59 Intake Total 440 Balance 440 - Medications Medications: Current Medications Acetylcysteine (Acetylcysteine 20%) 4 ml INH RQ6 TANA Last Admin: 09/02/18 01:44 Dose: Not Given Albuterol/Ipratropium (Duoneb 3 Mg/0.5 Mg (3 Ml) Ud) 3 ml INH RQ4 PRN PRN Reason: Shortness of Breath Last Admin: 09/01/18 13:25 Dose: 3 ml Carvedilol (Coreg) 3.125 mg PO BID [facility] Last Admin: 09/01/18 19:30 Dose: 3.125 mg Furosemide (Lasix) 40 mg IVP DAILY [facility] Last Admin: 09/01/18 10:08 Dose: Not Given Heparin Sodium (Porcine) (Heparin) 5,000 units SC Q8 [facility] Last Admin: 09/02/18 05:20 Dose: Not Given Piperacillin Sod/Tazobactam (Sod 3.375 gm/ Sodium Chloride) 100 mls @ 200 mls/hr IVPB Q6H [facility]; Protocol Last Admin: 09/02/18 05:53 Dose: 200 mls/hr Vancomycin/Sodium Chloride (Vancomycin 1 Gm/Ns 200 Ml) 1 gm in 200 mls @ 166.6 mls/hr IVPB Q24H [facility]; Protocol Stop: 09/04/18 16:01 Last Admin: 09/01/18 16:00 Dose: Not Given Losartan Potassium (Cozaar) 25 mg PO DAILY [facility] Last Admin: 09/01/18 10:05 Dose: 25 mg Methylprednisolone (Solu-Medrol) 40 mg IVP Q12 [facility] Last Admin: 09/01/18 22:51 Dose: 40 mg Multivitamins (Hexavitamin) 1 tab PO DAILY [facility] Last Admin: 09/01/18 10:06 Dose: 1 tab Pantoprazole Sodium (Protonix Ec Tab) 20 mg PO DAILY [facility] Last Admin: 09/01/18 10:05 Dose: 20 mg - Labs Labs: 09/02/18 07:40 09/02/18 07:40 PT 12.4 SECONDS (9.7-12.2) H 08/22/18 14:23 INR 1.1 08/22/18 14:23 APTT 30 SECONDS (21-34) 08/22/18 14:23 - Constitutional Appears: Well, Non-toxic, No Acute Distress - Head Exam Head Exam: ATRAUMATIC, NORMAL INSPECTION, NORMOCEPHALIC - Eye Exam Eye Exam: EOMI, PERRL - ENT Exam ENT Exam: Mucous Membranes Moist - Respiratory Exam Respiratory Exam: NORMAL BREATHING PATTERN Additional comments: crackles at bilateral bases - Cardiovascular Exam Cardiovascular Exam: REGULAR RHYTHM, RRR, +S1, +S2 - GI/Abdominal Exam GI & Abdominal Exam: Soft, Normal Bowel Sounds. absent: Tenderness - Extremities Exam Extremities Exam: Full ROM, Normal Inspection, Pedal Edema (trace) - Neurological Exam Neurological Exam: Alert, Awake, CN II-XII Intact, Oriented x3 - Skin Skin Exam: Dry, Intact Assessment and Plan (1) Congestive heart failure Assessment & Plan: Echocardiogram: LVEF: 25-30%, atrial septum is aneurysmal, ASD, mild TR, mild pulm HTN Lower extremity duplex of arteries: no DVT and normal valve function Chest CT: left sided effusion with loculated components, questionable mucus plugging changes, dense consolidation/atelectasis in the left lung base EKG: sinus tachycardia with fusion complexes with HR: 104 HgbA1c: 6.4 Tropx1: negative BNP: 780 from 1220 Cardiac catheterization showed no significant stenosis of coronary arteries. Patient likely has nonischemic cardiomyopathy. Continue with coreg, lisinopril, and lasix. Patient can be discharged from a cardiac standpoint and should follow up with Dr. Pedraza within two weeks. Status: Acute (2) Pleural effusion Assessment & Plan: 2/2 to nonischemic cardiomyopathy vs. pneumonia Loculated effusion seen on Chest CT Patient is currently afebrile and does not fulfill SIRS criteria. BCx negative and AFBx4 negative Continue with antibiotics to cover for pneumonia including vancomycin and zosyn. Status: Acute
[2018-09-02] MEDS: Multiple Vitamins Tab PO SCH (08:59)
[2018-09-02] MEDS: MethylPREDNISolone 40 mg Vial IVP SCH ×2 (08:59→21:27)
[2018-09-02] MEDS: Pantoprazole 20 mg EC Tab PO SCH (08:59)
[2018-09-02 09:47] LABS: BANDS 5 % (0-2); LYMPHOCYTE 11 % (20-40); MONOCYTE 6 % (0-10); NEUTROPHIL 77 % (50-75); PLATELET ESTIMATE NORMAL (NORMAL); REACTIVE LYMPHOCYTES 1 % (0-0); TOTAL CELLS COUNTED 100
[2018-09-02 09:48] LABS: ANISOCYTOSIS SLIGHT; TARGET CELLS MODERATE
[2018-09-02 12:56] LABS: ABG ALLEN TEST POS; ARTERIAL BLOOD GAS HEMOGLOBIN 13.2 g/dL (11.7-17.4); ARTERIAL BLOOD GAS O2 SAT 96.2 % (95-98); ARTERIAL BLOOD GAS PCO2 39 mm/Hg (35-45); ARTERIAL BLOOD GAS PH 7.53 (7.35-7.45); ARTERIAL BLOOD GAS PO2 65 mm/Hg (80-100); ARTERIAL BLOOD GAS TCO2 33.8 mmol/L (22-28)
--- NOTE | 2018-09-02 13:36 | CP.PCM.PN ---
Subjective - Date & Time of Evaluation Date of Evaluation: 09/02/18 Time of Evaluation: 09:00 - Subjective Subjective: PGY-1 Medicine Progress Note for Dr. Hill Patient was seen and examined at bedside. Pt underwent cardiac cath yesterday. Denies any new complaints at this time. Denies fever, chills, chest pain, SOB, abdominal pain, n/v/c/d or urinary complaints, headache, dizziness, lightheadedness. Objective - Vital Signs/Intake and Output Vital Signs (last 24 hours): Temp Pulse Resp BP Pulse Ox 97.8 F 110 H 22 122/79 94 L 09/02/18 08:00 09/02/18 08:58 09/02/18 08:58 09/02/18 10:56 09/02/18 08:58 Intake and Output: 09/02/18 09/02/18 06:59 18:59 Intake Total 440 Balance 440 - Medications Medications: Current Medications Albuterol/Ipratropium (Duoneb 3 Mg/0.5 Mg (3 Ml) Ud) 3 ml INH RQ4 PRN PRN Reason: Shortness of Breath Last Admin: 09/01/18 13:25 Dose: 3 ml Carvedilol (Coreg) 3.125 mg PO BID [facility] Last Admin: 09/02/18 08:59 Dose: 3.125 mg Furosemide (Lasix) 20 mg PO DAILY [facility] Guaifenesin (Mucinex La) 600 mg PO BID [facility] Heparin Sodium (Porcine) (Heparin) 5,000 units SC Q8 [facility] Last Admin: 09/02/18 12:59 Dose: Not Given Piperacillin Sod/Tazobactam (Sod 3.375 gm/ Sodium Chloride) 100 mls @ 200 mls/hr IVPB Q6H [facility]; Protocol Last Admin: 09/02/18 05:53 Dose: 200 mls/hr Vancomycin/Sodium Chloride (Vancomycin 1 Gm/Ns 200 Ml) 1 gm in 200 mls @ 166.6 mls/hr IVPB Q24H [facility]; Protocol Stop: 09/04/18 16:01 Last Admin: 09/01/18 16:00 Dose: Not Given Influenza Virus Vaccine (Flucelvax Quad [id number] Syr) 60 mcg IM .ONCE ONE Stop: 09/02/18 14:01 Losartan Potassium (Cozaar) 25 mg PO DAILY [facility] Last Admin: 09/02/18 08:59 Dose: 25 mg Methylprednisolone (Solu-Medrol) 40 mg IVP Q12 [facility] Last Admin: 09/02/18 08:59 Dose: 40 mg Montelukast Sodium (Singulair) 10 mg PO HS [facility] Multivitamins (Hexavitamin) 1 tab PO DAILY [facility] Last Admin: 09/02/18 08:59 Dose: 1 tab Pantoprazole Sodium (Protonix Ec Tab) 20 mg PO DAILY [facility] Last Admin: 09/02/18 08:59 Dose: 20 mg Pneumococcal Polyvalent Vaccine (Pneumovax 23 Vaccine) 0.5 ml IM .ONCE ONE Stop: 09/02/18 14:01 Spironolactone (Aldactone) 12.5 mg PO BID [facility] - Labs Labs: 09/02/18 07:40 09/02/18 07:40 PT 12.4 SECONDS (9.7-12.2) H 08/22/18 14:23 INR 1.1 08/22/18 14:23 APTT 30 SECONDS (21-34) 08/22/18 14:23 - Additional Findings Additional findings: - Constitutional Appears: No Acute Distress, Cachectic - Head Exam Head Exam: ATRAUMATIC, NORMOCEPHALIC - Eye Exam Eye Exam: EOMI, Normal appearance - ENT Exam ENT Exam: Mucous Membranes Moist - Respiratory Exam Respiratory Exam: Decreased Breath Sounds, Rales, Rhonchi - Cardiovascular Exam Cardiovascular Exam: +S1, +S2, Tachycardia. Sinus tachycardia on tele monitor. - GI/Abdominal Exam GI & Abdominal Exam: Soft, Normal Bowel Sounds. absent: Tenderness - Extremities Exam Extremities Exam: Normal Inspection. absent: Calf Tenderness - Neurological Exam Neurological Exam: Alert, Awake, Oriented x3 - Psychiatric Exam Psychiatric exam: Anxious - Skin Skin Exam: Dry, Intact, Normal Color, Warm Assessment and Plan - Assessment and Plan (Free Text) Assessment: Cystic Bronchiectasis, with acute exacerbation Bilateral Pneumonia, L pleural effusion Assessment/Plan * Pulmonary (Dr. Bashir) on consult help appreciated * Nebulizer treatment * Patient will benefit from vest therapy * Pt will not have bronchoscopy at this time due to high risk for anesthesia * Infectious disease, Dr. Land, consulted. * Chest xray (08/22/18): extensive bilateral pulmonary infiltrate. likely bilateral pneumonia. small moderate left pleural effusion. * CT chest (08/22/18): areas of dense consolidation/atelectasis in the left lung base; progressed 03/01/16. Extensive cystic changes seen throughout the left lung and less so the right upper lobe possibly representing cystic bronchiectasis. Left sided effusion possibly with some loculated components. mucous plugging changes or compressive effects on the proximal branches of the left upper and lower lobe of bronchi. mild fatty hepatic infiltration. gastric wall thickening in part of incomplete distension. markedly distended urinary bladder, rule out urinary retention * ANCA screen is negative * Proteinase 3 <1.0 * myeloperoxidase <1.0 * b DGlucan negative * indeterminate quantiferon * Aspergillus flavus negative * Aspergillus fumigatus negative * Aspergillus niger negative * HIV negative * influenza negative * Hepatitis negative * Rheumatoid factor IgM elevated at 80 * Blood culture (08/22/18): no growth after 5 days X2 * Myobacterial culture (08/23/18): negative for AFB. prelim * Myobacterial culture (08/25/18): negative for AFB. prelim * Myobacterial culture (08/28/18): negative for AFB. prelim * Mycobacterium complex PCR negative * Solumedrol 40mg IV Q12H * Zosyn 3.375 IVPB Q6H (active since 08/22/18) * Vancomycin 1g IVPB Q12H (active since 08/22/18), changed to Vancomycin 1g IVPB q24h as pt's vancomycin trough was 22.6 * F/u sputum culture, hisplasmosis AB, MARY level * airborne precautions discontinued as three sputum specimens have been negative for AFB * continue chest physiotherapy * Mucomyst discontinued as pt does not tolerate, starting Mucinex 600 mg PO BID today. Singulair 10 mg PO QHS started. * Pt continues to be afebrile Newly diagnosed Heart Failure with Reduced Ejection Fraction Assessment/Plan * Echocardiogram (08/27/18) left ventricular systolic function is severely impaired. ejection fraction is 25-30%. atrial septum aneurysmal. possible asd? no aortic regurgitation is present. mitral regurgitation is mild to moderate. mild tricuspid regurgitation. mild pulmonary hypertension. * No YOCASTA at this time * BNP on admission is 1220-->780 * 08/30, pt started on carvedilol 3.125 mg PO BID, Losartan 25 mg PO daily * 09/02, start Aldactone 25 mg PO once daily, Lasix 20 mg PO once daily * Cardiology, Dr. Pedraza, consulted. * Cardiac cath shows nonischemic cardiomyopathy. Start Aldactone today, as above, and discharge pt with BB, ARB, Aldactone. * Recommends medical management only at this time D-dimer elevation Assessment/Plan * DDimer noted to be 993 in the ED * CT chest (08/22/18): areas of dense consolidation/atelectasis in the left lung base; progressed 03/01/16. Entensive cystic changes seen throughout the left lung and less so the right upper lobe possibly representing cystic bronchiectasis. Left sided effusion possibly with some loculated components. mucous plugging changes or compressive effects on the proximal branches of the left upper and lower lobe of bronchi. mild fatty hepatic infiltration. gastric wall thickening in part of incomplete distension. markedly distended urinary bladder, rule out urinary retention * Pt's ABG was normal, satting well on room air, resolution of sob * Venous doppler (08/26) negative Cachexia Assessment/Plan * 30lb weight loss in 2 months * Meter Attendant referral PPx - DVT ppx: Heparin 5000u SC q8, SCDs - GI: Protonix 40mg po daily - Diet: HHD, MVI - PT eval shows dependent and steady gait. - Palliative Care consulted: Carol Ann. - Aspiration precautions due to increased mucus production Airborne Isolation discontinued Pt is full code. She reports that her sons will make decisions for her in case she is incapacitated. Disposition: Continue IV abx, plan to discharge pt with Levaquin 500 mg PO once daily for 10 days as per Pulmonology. Continue mucolytic/chest physiotherapy, plan to discharge pt with Breo, Duonebs, Singulair, Mucinex, medrol dose pack. Cardiac catheterization this afternoon at 4 pm.
[2018-09-02] MEDS: Albuterol-Ipratrop 3 mg / 0.5 (3 ml) UD INH PRN (13:45)
[2018-09-02] MEDS ORDERED: Influenza Vaccine 60 mcg/0.5 mL SYR (4YR UP) IM ONE (14:00)
[2018-09-02] MEDS ORDERED: Pneumococcal 23-Valent Vaccine IM ONE (14:00)
[2018-09-02] MEDS: Vancomycin 1 gm/NS 200 ml 1 GM/200 ML BAG IVPB SCH (15:45)
[2018-09-02] MEDS: guaiFENesin 600 mg ER Tab PO SCH ×2 (17:13→17:15)
[2018-09-03 01:52] VITALS: RESP 20
[2018-09-03] MEDS: Piperacillin/Tazobact 3.375 GM in Sodium Chloride 100 ML IVPB SCH ×2 (06:10→12:30)
[2018-09-03 08:01] LABS: BASO % 0.1 % (0.0-2.0); EOS % 0.1 % (0.0-4.0); HEMOGLOBIN 12.5 g/dL (11.0-16.0); LYMPH # 1.5 K/uL (1.0-4.3); LYMPH % 10.5 % (20.0-40.0); MEAN CORPUSCULAR HEMOGLOBIN 25.5 pg (27.0-31.0); MEAN CORPUSCULAR HGB CONC 32.7 g/dL (33.0-37.0); MEAN PLATELET VOLUME 10.1 fL (7.2-11.7); MONO # 1.1 K/uL (0.0-0.8); MONO % 7.4 % (0.0-10.0); NEUT # 12.1 K/uL (1.8-7.0); NEUT % 81.9 % (50.0-75.0); NRBC % 0.1 % (0.0-2.0); RBC 4.91 Mil/uL (3.80-5.20); WHITE BLOOD COUNT 14.7 K/uL (4.8-10.8)
[2018-09-03 08:08] VITALS: BP 111/76; TEMP 97.7; O2SAT 94
--- NOTE | 2018-09-03 08:12 | CP.PCM.DIS ---
Provider - Provider Date of Admission: 08/22/18 17:19 Attending physician: Nikki Hill DO Consults: 08/22/18 18:35 Infectious Disease Consult Routine Comment: Consulting Provider: Juan Land Consulting Physician: Juan Land Reason for Consult: cystic bronchiectasis Pulmonology Consult Routine Comment: Consulting Provider: Spenser Bashir Consulting Physician: Spenser Bashir Reason for Consult: cystic bronchiectasis 08/22/18 21:19 Palliative Care Consult Routine Comment: Consulting Provider: Carol Ann Quach Physician Instructions: Reason For Exam: POLST discussion, goals of care 08/28/18 18:51 Cardiology Consult Routine Comment: Consulting Provider: Harshil Pedraza Consulting Physician: Harshil Pedraza Reason for Consult: low EF, possible asd defect Time Spent in preparation of Discharge (in minutes): 35 Diagnosis - Discharge Diagnosis (1) Heart failure with reduced ejection fraction Status: Acute (2) Bronchiectasis with (acute) exacerbation Status: Acute (3) Pleural effusion Status: Acute Hospital Course - Lab Results Lab Results: Micro Results 09/02/18 01:30 Sputum Gram Stain - Preliminary 08/25/18 09:17 Other: Please Indicate Mycobacterial Culture - Preliminary 08/23/18 18:28 Unknown - Sputum Mycobacterial Culture - Preliminary 08/29/18 11:17 Unknown - Sputum Mycobacterial Culture - Preliminary 08/27/18 22:36 Other: Please Indicate Mycobacterial Culture - Preliminary 08/22/18 14:15 Blood Blood Culture - Final NO GROWTH AFTER 5 DAYS 08/22/18 14:15 Blood Gram Stain - Final TEST NOT PERFORMED 08/22/18 14:00 Blood Blood Culture - Final NO GROWTH AFTER 5 DAYS 08/22/18 14:00 Blood Gram Stain - Final TEST NOT PERFORMED Most Recent Lab Values WBC 14.7 K/uL (4.8-10.8) H 09/03/18 07:50 RBC 4.91 Mil/uL (3.80-5.20) 09/03/18 07:50 Hgb 12.5 g/dL (11.0-16.0) 09/03/18 07:50 Hct 38.2 % (34.0-47.0) 09/03/18 07:50 MCV 78.0 fL (81.0-99.0) L 09/03/18 07:50 MCH 25.5 pg (27.0-31.0) L 09/03/18 07:50 MCHC 32.7 g/dL (33.0-37.0) L 09/03/18 07:50 RDW 16.0 % (11.5-14.5) H 09/03/18 07:50 Plt Count 292 K/uL (130-400) 09/03/18 07:50 MPV 10.1 fL (7.2-11.7) 09/03/18 07:50 Neut % (Auto) 81.9 % (50.0-75.0) H 09/03/18 07:50 Lymph % (Auto) 10.5 % (20.0-40.0) L 09/03/18 07:50 [place] % (Auto) 7.4 % (0.0-10.0) 09/03/18 07:50 Eos % (Auto) 0.1 % (0.0-4.0) 09/03/18 07:50 Baso % (Auto) 0.1 % (0.0-2.0) 09/03/18 07:50 Neut # (Auto) 12.1 K/uL (1.8-7.0) H 09/03/18 07:50 Lymph # (Auto) 1.5 K/uL (1.0-4.3) 09/03/18 07:50 [place] # (Auto) 1.1 K/uL (0.0-0.8) H 09/03/18 07:50 Eos # (Auto) 0.0 K/uL (0.0-0.7) 09/03/18 07:50 Baso # (Auto) 0.0 K/uL (0.0-0.2) 09/03/18 07:50 Neutrophils % (Manual) 77 % (50-75) H 09/02/18 07:40 Band Neutrophils % 5 % (0-2) H 09/02/18 07:40 Lymphocytes % (Manual) 11 % (20-40) L 09/02/18 07:40 Reactive Lymphs % 1 % (0-0) H 09/02/18 07:40 Monocytes % (Manual) 6 % (0-10) 09/02/18 07:40 Platelet Estimate Normal (NORMAL) 09/02/18 07:40 Anisocytosis (manual) Slight 09/02/18 07:40 Target Cells Moderate 09/02/18 07:40 PT 12.4 SECONDS (9.7-12.2) H 08/22/18 14:23 INR 1.1 08/22/18 14:23 APTT 30 SECONDS (21-34) 08/22/18 14:23 D-Dimer, Quantitative 993 ng/mlDDU (0-243) H 08/22/18 14:23 Puncture Site Rr 09/02/18 12:50 pCO2 39 mm/Hg (35-45) 09/02/18 12:50 pO2 65 mm/Hg (80-100) L 09/02/18 12:50 HCO3 32.0 mmol/L (21-28) H 09/02/18 12:50 ABG pH 7.53 (7.35-7.45) H 09/02/18 12:50 ABG Total CO2 33.8 mmol/L (22-28) H 09/02/18 12:50 ABG O2 Saturation 96.2 % (95-98) 09/02/18 12:50 ABG Base Excess 9.2 mmol/L (-2.0-3.0) H 09/02/18 12:50 ABG Hemoglobin 13.2 g/dL (11.7-17.4) 09/02/18 12:50 ABG Carboxyhemoglobin 2.0 % (0.5-1.5) H 09/02/18 12:50 POC ABG HHb (Measured) 3.7 % (0.0-5.0) 09/02/18 12:50 ABG Methemoglobin 0.8 % (0.0-3.0) 09/02/18 12:50 Jose Test Pos 09/02/18 12:50 A-a O2 Difference 72.0 mm/Hg 08/22/18 19:25 Respiratory Index 0.6 08/22/18 19:25 Hgb O2 Saturation 93.5 % (95.0-98.0) L 09/02/18 12:50 FiO2 33.0 % 08/22/18 19:25 Sodium 134 mmol/L (132-148) 09/02/18 07:40 Potassium 4.6 mmol/L (3.6-5.2) 09/02/18 07:40 Chloride 97 mmol/L (98-107) L 09/02/18 07:40 Carbon Dioxide 31 mmol/L (22-30) H 09/02/18 07:40 Anion Gap 11 (10-20) 09/02/18 07:40 BUN 24 mg/dL (7-17) H 09/02/18 07:40 Creatinine 0.8 mg/dL (0.7-1.2) 09/02/18 07:40 Est GFR ( Amer) > 60 09/02/18 07:40 Est GFR (Non-Af Amer) > 60 09/02/18 07:40 Random Glucose 120 mg/dL (65-105) H D 09/02/18 07:40 Hemoglobin A1c 6.4 % (4.2-6.5) 08/23/18 07:14 Calcium 9.6 mg/dl (8.6-10.4) 09/02/18 07:40 Phosphorus 4.6 mg/dL (2.5-4.5) H 09/02/18 07:40 Magnesium 2.2 mg/dL (1.6-2.3) 09/02/18 07:40 Total Bilirubin 0.4 mg/dL (0.2-1.3) 09/02/18 07:40 AST 41 U/L (14-36) H D 09/02/18 07:40 ALT 27 U/L (9-52) 09/02/18 07:40 Alkaline Phosphatase 103 U/L (38-126) 09/02/18 07:40 Troponin I < 0.0120 ng/mL (0.00-0.120) 08/22/18 14:23 NT-Pro-B Natriuret Pep 780 pg/mL (0-900) 08/29/18 07:49 Total Protein 6.7 g/dL (6.3-8.3) 09/02/18 07:40 Albumin 3.5 g/dL (3.5-5.0) 09/02/18 07:40 Globulin 3.2 gm/dL (2.2-3.9) 09/02/18 07:40 Albumin/Globulin Ratio 1.1 (1.0-2.1) 09/02/18 07:40 Uahyf-7-Eptplugwvog 217 mg/dL (83-199) H 08/24/18 07:35 Triglycerides 109 mg/dL (0-149) 08/30/18 07:13 Cholesterol 126 mg/dL (0-199) 08/30/18 07:13 LDL Cholesterol Direct 61 mg/dL (0-129) 08/30/18 07:13 HDL Cholesterol 42 mg/dL (30-70) 08/30/18 07:13 Vitamin B12 192 pg/mL (239-931) L 08/23/18 07:14 Folate 18.4 ng/mL 08/23/18 07:14 Procalcitonin < 0.05 NG/ML (0.19-0.49) L 09/02/18 13:59 Free T4 1.94 ng/dL (0.78-2.19) 08/24/18 10:29 TSH 3rd Generation 0.28 mIU/L (0.46-4.68) L 08/23/18 07:14 Vancomycin Trough 22.6 ug/mL (5.0-10.0) H 08/30/18 03:39 Rheumatoid Factor IgG <5 U (<=6) 08/24/18 07:35 Rheumatoid Factor IgA 13 U (<=6) H 08/24/18 07:35 Rheumatoid Factor IgM 80 U (<=6) H 08/24/18 07:35 ANCA Screen Negative (NEGATIVE) 08/25/18 07:25 c-ANCA Titer TNP 08/25/18 07:25 Proteinase 3 (PR3) <1.0 AI (<1.0) 08/25/18 07:25 p-ANCA Titer TNP 08/25/18 07:25 Atypical p-ANCA Titer TNP 08/25/18 07:25 Myeloperoxidase Ab <1.0 AI (<1.0) 08/25/18 07:25 Hepatitis A IgM Ab Negative (NEGATIVE) 08/24/18 07:35 Hep Bs Antigen Negative (NEGATIVE) 08/24/18 07:35 Hep B Core IgM Ab Negative (NEGATIVE) 08/24/18 07:35 Hepatitis C Antibody Negative (NEGATIVE) 08/24/18 07:35 HIV 1&2 Antibody Screen Negative (NEGATIVE) 08/24/18 07:35 Influenza Typ A,B (EIA) Negative for flu a/b (NEGATIVE) 08/22/18 14:23 Ur L.pneumophila Ag Negative (NEGATIVE) 08/24/18 07:50 Myco Comp PCR Spec Srce Sputum 08/26/18 11:32 Myco Complex PCR Result Not detected 08/26/18 11:32 Mycoplasma pneumon IgG <=0.90 (<=0.90) 08/24/18 07:35 Mycoplasma pneumon IgM 231 U/mL (<770) 08/24/18 07:35 Aspergillus Antigen Not detected (Not Detected) 08/22/18 21:35 Aspergillus flavus Ab Negative (Negative) 08/22/18 21:35 Aspergill fumigatus Ab Negative (Negative) 08/22/18 21:35 Aspergillus niger Ab Negative (Negative) 08/22/18 21:35 Aspergillus Index Value 0.28 (<0.50) 08/22/18 21:35 S.pneumoniae Type 1 IgG <0.3 08/24/18 07:35 S.pneumoniae Type 3 IgG 3.5 08/24/18 07:35 S.pneumoniae Type 4 IgG <0.3 08/24/18 07:35 S.pneumoniae Type 5 IgG 0.4 08/24/18 07:35 S.pneumoniae Type 8 IgG 0.6 08/24/18 07:35 S.pneumoniae Type 9 IgG 0.3 08/24/18 07:35 S.pneumoniae Typ 12 IgG <0.3 08/24/18 07:35 S.pneumoniae Typ 14 IgG 1.2 08/24/18 07:35 S.pneumonia Type 19 IgG 0.7 08/24/18 07:35 S.pneumonia Type 23 IgG <0.3 08/24/18 07:35 S.pneumoniae Typ 26 IgG <0.3 08/24/18 07:35 S.pneumoniae Typ 51 IgG 2.6 08/24/18 07:35 S.pneumoniae Typ 56 IgG 1.3 08/24/18 07:35 S.pneumoniae Typ 68 IgG <0.3 08/24/18 07:35 TB Test (QFT) Nil 0.02 IU/mL 08/22/18 22:28 TB Test Mitogen - Nil 0.03 IU/mL 08/22/18 22:28 TB Test Antigen - Nil 0.00 IU/mL 08/22/18 22:28 TB Test TB - Nil 0.00 IU/mL 08/22/18 22:28 TB Test (QFT) Indeterminate (Negative) H 08/22/18 22:28 Beta-(1,3)-D-Glucan 35 pg/mL (<60) 08/25/18 07:25 B-(1,3)-D-Glucan Intrp Negative 08/25/18 07:25 - Hospital Course Hospital Course: On admission: 68 year old F with PMH asthma presents for 1 months of worsening cough and weakness. She was admitted for pneumonia 2 years ago and has not seen a doctor since that visit. Over the last month, she has been producing more and more yellow phlegm, up to a few tablespoons each hour. She has also noticed a 30lb weight loss over the last 2 months, coordinating with loss of appetite. Denies pain, headache, palpitations, difficulty urinating, difficulty breathing, dysnpea. Hospital course: CXR showed extensive bilateral pulmonary infiltrate. likely bilateral pneumonia. small moderate left pleural effusion. Pt placed on airborne isolation. Started on broad spectrum IV antibiotics, Duonebs, IV steroids, chest physiotherapy. Ddimer noted be elevated, CT Chest showed cystic bronchiectasis with L sided effusion, mild fatty hepatic infiltration, gastric wall thickening, distended urinary bladder. Lower extremity dopplers were negative for any abnormalities. ABG was normal. Infectious disease, Dr. Land, consulted. Pulmonology, Dr. Bashir, consulted. Pt refused bronchoscopy offered by pulmonology on multiple occasions. HIV, ANCA screen, Proteinase 3 <1.0, myeloperoxidase <1.0, b DGlucan negative, indeterminate quantiferon, Aspergillus flavus, Aspergillus fumigatus, Aspergillus niger, influenza, histoplasma, Hepatitis all normal. Rheumatoid factor IgM elevated at 80. Isolation contact discontinued after Mycoplasma culture negative for AFB x3. Mycobacterium complex PCR negative. Blood culture negative to date. Sputum culture negative (of note, collected after 10 days of broad spectrum antibiotics). Pt with episode of vtach (asymptomatic), which prompted echocardiogram. Echocardiogram showed left ventricular systolic function is severely impaired. ejection fraction is 25-30%. atrial septum aneurysmal. possible asd? no aortic regurgitation is present. mitral regurgitation is mild to moderate. mild tricuspid regurgitation. mild pulmonary hypertension. Bronchoscopy cancelled as pt is high risk as per anesthesia. Cardiology, Dr. Pedraza, consulted. No YOCASTA on this time. Cardiac cath showed no obstructions. Pt started on ASA, BB, ARB, Aldactone, Lasix. These meds were well tolerated, but with borderline hyperkalemia at 5.0 (asymptomatic). Aldactone dosage was decreased prior to discharge. Pt improved throughout hospitalization, but remains with significant mucus in the airways. Case discussed with Son, Javi, who was informed of pt's HFrEF and Bronchiectasis; including prognosis, treatment plan, and future appointments with [facility], pulmonary, cardiology. This is a summary of hospital course. Please see EMR for full details. Discharge Exam - Additional Findings Additional findings: - Constitutional Appears: No Acute Distress, Cachectic - Head Exam Head Exam: ATRAUMATIC, NORMOCEPHALIC - Eye Exam Eye Exam: EOMI, Normal appearance - ENT Exam ENT Exam: Mucous Membranes Moist - Respiratory Exam Respiratory Exam: Decreased Breath Sounds, Rales, Rhonchi; no wheezes - Cardiovascular Exam Cardiovascular Exam: RRR, +S1, +S2. Absent : tachycardia - GI/Abdominal Exam GI & Abdominal Exam: Soft, Normal Bowel Sounds. absent: Tenderness - Extremities Exam Extremities Exam: Normal Inspection. absent: Calf Tenderness - Neurological Exam Neurological Exam: Alert, Awake, Oriented x3 - Psychiatric Exam Psychiatric exam: Anxious - Skin Skin Exam: Dry, Intact, Normal Color, Warm Discharge Plan - Discharge Medications Prescriptions: Albuterol/Ipratropium [Duoneb 3 mg/0.5 mg (3 ml) UD] 3 ml INH Q6 #1 packet Carvedilol [Coreg] 3.125 mg PO BID #60 tab Furosemide [Lasix] 20 mg PO DAILY #30 tablet Furosemide [Lasix] 40 mg PO DAILY #30 tab guaiFENesin [Mucinex LA] 600 mg PO BID #60 tab Lactobacillus Acidophilus [Lactobacillus] 1 cap PO BID #60 cap levoFLOXacin [Levaquin] 500 mg PO DAILY #10 tab Losartan [Cozaar] 25 mg PO DAILY #30 tab Methylprednisolone [Medrol Dose Pack (21 tabs)] 4 mg PO DAILY #21 mg Montelukast [Singulair] 10 mg PO HS #30 tab Spironolactone [Aldactone] 12.5 mg PO BID #60 tab Spironolactone [Aldactone] 12.5 mg PO DAILY #30 tab - Follow Up Plan Condition: GOOD Disposition: HOME/ ROUTINE Instructions: Heart Healthy Diet, Pneumonia, Adult (DC), Pleural Effusion (DC), Bronchiectasis in Adults, Fluticasone and Vilanterol, How to Do Chest PT, Heart Failure (DC) Additional Instructions: Pt is medically stable for discharge home as per Dr. Hill. Medications needed: Losartan 25 mg PO once daily Aldactone 12.5 mg PO once daily Aspirin 81 mg PO once daily Carvedilol 3.125 mg PO BID Furosemide 40 mg PO once daily Levaquin 500 mg PO once daily for 10 days Continue mucolytic/chest physiotherapy with valve Breo ellipta 1 pump daily Provided with free sample, two boxes of 14 doses. Duoneb treatment every 6 hours as needed for shortness of breath. You will need to purchase z nebulizer machine, which you can find at local pharmacy. Singulair 10 mg PO QHS Mucinex 600 mg PO BID Medrol dose pack Acapella valve, use at least 4 time daily to help remove mucus. Needs to be cleaned with distilled water at least once dailiy. Clean the four parts of the Acapella with hydrogen peroxide. Soak both parts in 3% hydrogen peroxide for 30 minutes Note : The Acapella should NOT be placed in the automatic formal wear rental clerk, boiled or bleached. Shake off excess water. Drain dry the device. Place each piece downward or rest the pieces on the sides. Reassemble the device when it is completely dry. Pt should follow up with PMD, or [facility], within 2 weeks of discharge for management of newly diagnosed medical problems. Call to make an appointment. They will set you up with appointment with Cardiology and Pulmonology. Should symptoms worsen, please head to the nearest Emergency Department for further evaluation. Instruction explained to pt and family, who understand and agree with discharge plan. Referrals: [facility] [Outside] Spenser Bashir MD [Staff Provider] - Harshil Pedraza MD [Staff Provider] - Juan Land MD [Staff Provider] -
[2018-09-03 08:28] LABS: ALBUMIN 3.5 g/dL (3.5-5.0); ALT/SGPT 34 U/L (9-52); AST/SGOT 39 U/L (14-36); BLOOD UREA NITROGEN 29 mg/dL (7-17); CALCIUM 9.9 mg/dl (8.6-10.4); GFR NON-AFRICAN AMERICAN > 60
[2018-09-03] MEDS: MethylPREDNISolone 40 mg Vial IVP SCH (09:40)
[2018-09-03] MEDS: Multiple Vitamins Tab PO SCH (09:41)
[2018-09-03] MEDS: guaiFENesin 600 mg ER Tab PO SCH (09:41)
[2018-09-03] MEDS: Pantoprazole 20 mg EC Tab PO SCH (09:41)
[2018-09-03 12:57] VITALS: PULSE 124
--- NOTE | 2018-09-03 15:25 | CP.PCM.PN ---
Subjective - Date & Time of Evaluation Date of Evaluation: 09/03/18 Time of Evaluation: 15:24 - Subjective Subjective: sob improving K 5.0 after aldactone Objective - Vital Signs/Intake and Output Vital Signs (last 24 hours): Temp Pulse Resp BP Pulse Ox 97.7 F 124 H 20 111/76 94 L 09/03/18 07:00 09/03/18 12:56 09/03/18 07:00 09/03/18 09:41 09/03/18 07:00 Intake and Output: 09/03/18 09/03/18 06:59 18:59 Intake Total 1125 Balance 1125 - Medications Medications: Current Medications Albuterol/Ipratropium (Duoneb 3 Mg/0.5 Mg (3 Ml) Ud) 3 ml INH RQ4 PRN PRN Reason: Shortness of Breath Last Admin: 09/02/18 13:45 Dose: 3 ml Carvedilol (Coreg) 3.125 mg PO BID [facility] Last Admin: 09/03/18 09:41 Dose: 3.125 mg Furosemide (Lasix) 20 mg PO DAILY [facility] Last Admin: 09/03/18 09:41 Dose: 20 mg Guaifenesin (Mucinex La) 600 mg PO BID [facility] Last Admin: 09/03/18 09:41 Dose: 600 mg Heparin Sodium (Porcine) (Heparin) 5,000 units SC Q8 TANA Last Admin: 09/03/18 13:52 Dose: Not Given Piperacillin Sod/Tazobactam (Sod 3.375 gm/ Sodium Chloride) 100 mls @ 200 mls/hr IVPB Q6H TANA; Protocol Last Admin: 09/03/18 12:30 Dose: 200 mls/hr Vancomycin/Sodium Chloride (Vancomycin 1 Gm/Ns 200 Ml) 1 gm in 200 mls @ 166.6 mls/hr IVPB Q24H TANA; Protocol Stop: 09/04/18 16:01 Last Admin: 09/02/18 15:45 Dose: 166.6 mls/hr Losartan Potassium (Cozaar) 25 mg PO DAILY [facility] Last Admin: 09/03/18 09:41 Dose: 25 mg Methylprednisolone (Solu-Medrol) 40 mg IVP Q12 [facility]NA Last Admin: 09/03/18 09:40 Dose: 40 mg Montelukast Sodium (Singulair) 10 mg PO HS [facility] Last Admin: 09/02/18 21:28 Dose: Not Given Multivitamins (Hexavitamin) 1 tab PO DAILY [facility] Last Admin: 09/03/18 09:41 Dose: 1 tab Pantoprazole Sodium (Protonix Ec Tab) 20 mg PO DAILY [facility] Last Admin: 09/03/18 09:41 Dose: 20 mg Spironolactone (Aldactone) 12.5 mg PO DAILY [facility] - Labs Labs: 09/03/18 07:50 09/03/18 07:50 PT 12.4 SECONDS (9.7-12.2) H 08/22/18 14:23 INR 1.1 08/22/18 14:23 APTT 30 SECONDS (21-34) 08/22/18 14:23 - Constitutional Appears: Well - Head Exam Head Exam: ATRAUMATIC, NORMAL INSPECTION, NORMOCEPHALIC - Eye Exam Eye Exam: EOMI, Normal appearance, PERRL Pupil Exam: NORMAL ACCOMODATION, PERRL - ENT Exam ENT Exam: Mucous Membranes Moist, Normal Exam - Neck Exam Neck Exam: Full ROM, Normal Inspection. absent: Lymphadenopathy - Respiratory Exam Respiratory Exam: Clear to Ausculation Bilateral, NORMAL BREATHING PATTERN - Cardiovascular Exam Cardiovascular Exam: REGULAR RHYTHM, +S1, +S2. absent: Murmur - GI/Abdominal Exam GI & Abdominal Exam: Soft, Normal Bowel Sounds. absent: Tenderness - Extremities Exam Extremities Exam: Full ROM, Normal Capillary Refill, Normal Inspection. absent: Joint Swelling, Pedal Edema - Back Exam Back Exam: NORMAL INSPECTION - Neurological Exam Neurological Exam: Alert, Awake, CN II-XII Intact, Normal Gait, Oriented x3 - Psychiatric Exam Psychiatric exam: Normal Affect, Normal Mood - Skin Skin Exam: Dry, Intact, Normal Color, Warm Assessment and Plan (1) Bronchiectasis with (acute) exacerbation Status: Acute (2) Congestive heart failure Status: Acute (3) Pleural effusion Status: Acute (4) Pneumonia Status: Acute (5) Hypertension Status: Acute
== END 2018-09-03 16:30 | disposition home or self-care (01) | DRG 192 ==
LOC: C.ER 11:21 → C.9E 17:19 → C.6T 22:10 → C.5S 22:28
PROVIDERS: ADMIT Hospitalist; ATTEND Hospitalist
PROC: 4A023N8 Measurement of Cardiac Sampling and Pressure, Bilateral, Percutaneous Approach (ICD-10-PCS; principal; 2018-09-01)
PROC: B2161ZZ Fluoroscopy of Right and Left Heart using Low Osmolar Contrast (ICD-10-PCS; 2018-09-01)
PROC: B2111ZZ Fluoroscopy of Multiple Coronary Arteries using Low Osmolar Contrast (ICD-10-PCS; 2018-09-01)
DX: I11.0 Hypertensive heart disease with heart failure (principal); J47.0 Bronchiectasis with acute lower respiratory infection; J18.9 Pneumonia, unspecified organism; I50.20 Unspecified systolic (congestive) heart failure; I42.0 Dilated cardiomyopathy; I47.2 Ventricular tachycardia; R64 Cachexia; J47.1 Bronchiectasis with (acute) exacerbation; I27.20 Pulmonary hypertension, unspecified; J84.10 Pulmonary fibrosis, unspecified; Q21.1 Atrial septal defect; R79.1 Abnormal coagulation profile; J45.909 Unspecified asthma, uncomplicated; F06.4 Anxiety disorder due to known physiological condition; E87.5 Hyperkalemia; Z53.29 Procedure and treatment not carried out because of patient's decision for other reasons; Z51.5 Encounter for palliative care; Z87.01 Personal history of pneumonia (recurrent); Z79.899 Other long term (current) drug therapy; Z82.49 Family history of ischemic heart disease and other diseases of the circulatory system; Z83.3 Family history of diabetes mellitus

== ENCOUNTER 2018-09-10 00:55 | Inpatient (IN) | payer MEDICAID, OTHER ==
[2018-09-10] MEDS ORDERED: Alum-Mag Hydrox-Simethicone Susp (30 mL) PO STA (01:44)
--- NOTE | 2018-09-10 01:53 | C.PDOC ---
History Of Present Illness 68 year old female presents to the ED c/o epigastric abdominal pain associated with nausea for the past 1 day. Patient reports her pain is non radiating, states she recently began taking several new medications. Patient reports having normal bowel movement. Patient denies fever, chills, diarrhea, CP, SOB, palpitations, recent travel, sick contacts. Time Seen by Provider: 09/10/18 01:39 Chief Complaint (Nursing): Abdominal Pain History Per: Patient History/Exam Limitations: no limitations Onset/Duration Of Symptoms: Days (1) Current Symptoms Are (Timing): Still Present Location Of Pain/Discomfort: Epigastric Radiation Of Pain To:: None Quality Of Discomfort: "Pain" Associated Symptoms: Nausea. denies: Vomiting, Diarrhea, Urinary Symptoms Additional History Per: Patient Abnormal Vaginal Bleeding: No Past Medical History Reviewed: Historical Data, Nursing Documentation, Vital Signs Vital Signs: Last Vital Signs Temp 97.9 F 09/10/18 01:04 Pulse 116 H 09/10/18 01:04 Resp 24 09/10/18 01:04 BP Pulse Ox 93 L 09/10/18 01:04 - Medical History PMH: Asthma Denies: Chronic Kidney Disease Surgical History: No Surg Hx - [facility] Procedures FLUOROSCOPY OF MULT COR ART USING L OSM CONTRAST (08/22/18) FLUOROSCOPY OF RIGHT AND LEFT HEART USING L OSM CONTRAST (08/22/18) MEASURE CARDIAC SAMPL & PRESSURE, BILATERAL, PERC (08/22/18) Family History: States: Unknown Family Hx - Social History Hx Alcohol Use: No Hx Substance Use: No - Immunization History Hx Tetanus Toxoid Vaccination: No Hx Influenza Vaccination: No Review Of Systems Except As Marked, All Systems Reviewed And Found Negative. Gastrointestinal: Positive for: Nausea, Abdominal Pain Physical Exam - Physical Exam Additional Physical Exam Comments: Constitutional: No acute distress. Head: Normocephalic. Atraumatic. Eyes: PERRL. ENT: Moist mucous membranes. Neck: Supple. Cardiovascular: Regular rate. Radial pulse 2+ bilaterally. Chest: No tenderness. Respiratory: Clear to auscultation bilaterally. GI: Soft. Epigastric Tenderness. Nondistended. Back: No CVA tenderness. Musculoskeletal: No tenderness or swelling of extremities. Skin: No rash. Neurologic: Alert, no focal deficit. ED Course And Treatment - Laboratory Results Result Diagrams: 09/10/18 02:27 09/10/18 02:27 O2 Sat by Pulse Oximetry: 93 Medical Decision Making Medical Decision Making: Plan: * CT abd/pelvis * Labs * Maalox 30 ml PO * Pepcid 20 mg IVP * Zofran 4 mg IVP * UA * Urine culture CT abd/pelvis CT SCAN OF THE ABDOMEN AND PELVIS WITH IV CONTRAST. CLINICAL INDICATION: Patient with abdominal pain. TECHNIQUE: Axial and reformatted sagittal and coronal images of the abdomen pelvis obtained with IV contrast administration. COMPARISON: 08/22/2018. FINDINGS: Unchanged left pleural effusion. Unchanged bilateral multifocal airspace disease of the lungs. Unchanged pulmonary emphysema and bronchiectasis. Fluid-filled mildly dilated bowels. Distended bladder. Normal enhanced liver. Normal gallbladder and extrahepatic biliary system. Normal enhanced spleen. Normal pancreas. Normal bilateral adrenal glands. Normal size of the right kidney. There is no right renal mass. There are no right renal calculi. There is no right hydronephrosis. Normal visualized right ureter. Normal size of the left kidney. There is no left renal mass. There are no left renal calculi. There is no left hydronephrosis. Normal visualized left ureter. The appendix is visualized and appears normal. There is no demonstrated peritoneal fluid. Normal abdominal aorta. Normal inferior vena cava. Normal retroperitoneum. Normal urinary bladder. There is no pelvic mass lesion or lymphadenopathy. There is no pelvic fluid. Normal abdominal wall. Normal osseous structures. IMPRESSION: Ileus versus developing enteritis. Distended bladder. Electronically signed on Sep 10, 2018 4:35:11 AM EDT by: Faiza Goodwin M.D., Certified by LAURI NG, Neuroradiology Disposition - Disposition Disposition: HOSPITALIZED Disposition Time: 04:36 Condition: GUARDED - Clinical Impression Clinical Impression: Enteritis, Hyponatremia - Scribe Statement The provider has reviewed the documentation as recorded by the Scribronda Watters All medical record entries made by the Tonoibe were at my direction and personally dictated by me. I have reviewed the chart and agree that the record accurately reflects my personal performance of the history, physical exam, medical decision making, and the department course for this patient. I have also personally directed, reviewed, and agree with the discharge instructions and disposition.
[2018-09-10] MEDS ORDERED: Iodixanol 320 MG/ML 100 ML BOTTLE IV ONE (01:54)
[2018-09-10] MEDS ORDERED: Aluminum Hydroxide/Magnesium Hydroxide Susp (30 mL) ONE (02:14)
[2018-09-10 02:32] LABS: BASO # 0.1 K/uL (0.0-0.2); BASO % 0.6 % (0.0-2.0); EOS # 0.2 K/uL (0.0-0.7); EOS % 0.9 % (0.0-4.0); HEMOGLOBIN 12.3 g/dL (11.0-16.0); LYMPH % 5.2 % (20.0-40.0); MEAN CELL VOLUME 76.2 fL (81.0-99.0); MEAN CORPUSCULAR HEMOGLOBIN 25.4 pg (27.0-31.0); MEAN CORPUSCULAR HGB CONC 33.3 g/dL (33.0-37.0); MEAN PLATELET VOLUME 9.5 fL (7.2-11.7); MONO # 0.8 K/uL (0.0-0.8); MONO % 4.1 % (0.0-10.0); NEUT # 17.9 K/uL (1.8-7.0); NEUT % 89.2 % (50.0-75.0); PLATELET COUNT 258 K/uL (130-400); RBC 4.85 Mil/uL (3.80-5.20); RED CELL DISTRIBUTION WIDTH 16.2 % (11.5-14.5); WHITE BLOOD COUNT 20.1 K/uL (4.8-10.8)
[2018-09-10 02:50] LABS: ALB/GLOB RATIO 1.1 (1.0-2.1); ALBUMIN 3.7 g/dL (3.5-5.0); ALT/SGPT 30 U/L (9-52); AST/SGOT 48 U/L (14-36); BLOOD UREA NITROGEN 24 mg/dL (7-17); CALCIUM 9.6 mg/dl (8.6-10.4); GFR NON-AFRICAN AMERICAN > 60; LIPASE 110 U/L (23-300)
[2018-09-10 03:11] LABS: LYMPHOCYTE 6 % (20-40); MONOCYTE 5 % (0-10); NEUTROPHIL 85 % (50-75); REACTIVE LYMPHOCYTES 4 % (0-0); TOTAL CELLS COUNTED 100
[2018-09-10 03:12] LABS: ANISOCYTOSIS SLIGHT; MICROCYTOSIS SLIGHT; PLATELET ESTIMATE NORMAL (NORMAL)
[2018-09-10 04:10] LABS: VENOUS BLOOD GAS BASE EXCESS -0.2 mmol/L (0.0-2.0); VENOUS BLOOD GAS PCO2 41 mmHg (40-60); VENOUS BLOOD GAS PO2 31 mm/Hg (30-55); VENOUS BLOOD PH 7.39 (7.32-7.43)
[2018-09-10] MEDS ORDERED: Ciprofloxacin 400mg/200ml D5W 400 MG/200 ML BAG IVPB STA (04:47)
[2018-09-10] MEDS ORDERED: metroNIDAZOLE IV 500 mg/100 ml 500 MG/100 ML BAG IVPB STA (04:47)
[2018-09-10] MEDS ORDERED: Ciprofloxacin 400mg/200ml D5W 400 MG/200 ML BAG IVPB ONE (05:10)
[2018-09-10] MEDS ORDERED: metroNIDAZOLE IV 500 mg/100 ml 500 MG/100 ML BAG ONE (05:11)
--- NOTE | 2018-09-10 05:19 | CP.PCM.HP ---
<Lester Rooney - Last Filed: 09/10/18 07:39> History of Present Illness - History of Present Illness History of Present Illness: H and P for Dr. Gonzales This is a 68 year old female with PMH of newly diagnosed HFrEF, bronchiectasis who presents for epigastric abdominal pain for the past 5 days. Pt states that the pain is intermittent and occurs after taking her medications. It lasts a few hours, and goes away on its own. It is not associated with food, does not radiate, and is described as a burning. Denies fever, chill, chest pain, sob, n/v/d, hemotochezia, melena, hemoptysis, falls, dizziness, headache, seizure activity, lightheadedness. Pt has chronic productive cough, for which she takes medications. Endorses 30 lb weight loss of the last [address] with IV contrast done in the ED shows small pneumothorax. Sodium noted to be 119. PMD: none PMH: HFrEF, bronchiectasis PSH: none Meds: Losartan 25 mg PO once daily, Aldactone 12.5 mg PO once daily, Aspirin 81 mg PO once daily, Carvedilol 3.125 mg PO BID, Furosemide 40 mg PO once daily, Levaquin 500 mg PO once daily for 10 days, Acapella valve for chest PT, Breo ellipta 1 pump daily, Duoneb q 6 hours, Singulair 10 mg PO QHS, Mucinex 600 mg PO BID, Medrol dose pack Allx: see EMR FHx: denies SHx: social etoh (rarely), denies smoking, denies drugs Denies papsmear, mammogram recently. Never had a colonoscopy. Present on Admission - Present on Admission Any Indicators Present on Admission: No Review of Systems - Review of Systems All systems: reviewed and no additional remarkable complaints except (as per HPI) Past Patient History - Infectious Disease Hx of Infectious Diseases: None - Past Medical History & Family History Past Medical History?: Yes - Past Social History Smoking Status: Never Smoked - CARDIAC Hx Cardiac Disorders: No - PULMONARY Hx Asthma: Yes - NEUROLOGICAL Hx Neurological Disorder: No - HEENT Hx HEENT Problems: No - RENAL Hx Chronic Kidney Disease: No - ENDOCRINE/METABOLIC Hx Endocrine Disorders: No - HEMATOLOGICAL/ONCOLOGICAL Hx Blood Disorders: No - INTEGUMENTARY Hx Dermatological Problems: No - MUSCULOSKELETAL/RHEUMATOLOGICAL Hx Musculoskeletal Disorders: No Hx Falls: No - GASTROINTESTINAL Hx Gastrointestinal Disorders: No - GENITOURINARY/GYNECOLOGICAL Hx Genitourinary Disorders: No - PSYCHIATRIC Hx Substance Use: No - SURGICAL HISTORY Hx Surgeries: Yes Hx Section: Yes - ANESTHESIA Hx Anesthesia: Yes Hx Anesthesia Reactions: No Hx Malignant Hyperthermia: No Meds Allergies/Adverse Reactions: Allergies Allergy/AdvReac Type Severity Reaction Status Date / Time acetaminophen [From NyQuil] Allergy Verified 08/22/18 12:02 dextromethorphan HBr Allergy Verified 08/22/18 12:02 [From NyQuil] doxylamine succinate Allergy Verified 08/22/18 12:02 [From NyQuil] ibuprofen [From Advil] Allergy Verified 08/22/18 12:02 pseudoephedrine HCl Allergy Verified 08/22/18 12:02 [From NyQuil] Physical Exam - Additional Findings Additional findings: - Constitutional Appears: No Acute Distress, Cachectic - Head Exam Head Exam: ATRAUMATIC, NORMOCEPHALIC - Eye Exam Eye Exam: EOMI, Normal appearance - ENT Exam ENT Exam: Mucous Membranes Dry - Respiratory Exam Respiratory Exam: Decreased Breath Sounds, Rales, Rhonchi - Cardiovascular Exam Cardiovascular Exam: +S1, +S2, Tachycardia. Sinus tachycardia on tele monitor. - GI/Abdominal Exam GI & Abdominal Exam: Soft, Normal Bowel Sounds. absent: Tenderness - Extremities Exam Extremities Exam: Normal Inspection. absent: Calf Tenderness - Neurological Exam Neurological Exam: Alert, Awake, Oriented x3. CN2-12 grossly normal. 5/5 strength in bilateral upper and lower extremities. - Psychiatric Exam Psychiatric exam: Anxious. Normal affect. Normal mood. - Skin Skin Exam: Dry, Intact, Normal Color, Warm. Decreased skin turgor Results - Vital Signs Recent Vital Signs: Last Vital Signs Temp 97.9 F 09/10/18 01:04 Pulse 116 H 09/10/18 01:04 Resp 24 09/10/18 01:04 BP Pulse Ox 93 L 09/10/18 04:49 - Labs Result Diagrams: 09/10/18 02:27 09/10/18 02:27 Labs: Laboratory Results - last 24 hr 09/10/18 09/10/18 09/10/18 02:27 02:27 04:06 WBC 20.1 H RBC 4.85 Hgb 12.3 Hct 37.0 MCV 76.2 L MCH 25.4 L MCHC 33.3 RDW 16.2 H Plt Count 258 MPV 9.5 Neut % (Auto) 89.2 H Lymph % (Auto) 5.2 L Beauregard % (Auto) 4.1 Eos % (Auto) 0.9 Baso % (Auto) 0.6 Neut # (Auto) 17.9 H Lymph # (Auto) 1.0 Beauregard # (Auto) 0.8 Eos # (Auto) 0.2 Baso # (Auto) 0.1 Neutrophils % (Manual) 85 H Lymphocytes % (Manual) 6 L Reactive Lymphs % 4 H Monocytes % (Manual) 5 Platelet Estimate Normal Anisocytosis (manual) Slight Microcytosis (manual) Slight pO2 31 VBG pH 7.39 VBG pCO2 41 VBG HCO3 23.7 VBG Total CO2 26.1 VBG O2 Sat (Calc) 60.5 VBG Base Excess -0.2 L VBG Potassium 3.8 Glucose 112 H Lactate 1.7 Sodium 119 L* 124.0 L Potassium 5.1 Chloride 87 L 92.0 L Carbon Dioxide 23 Anion Gap 14 BUN 24 H Creatinine 0.6 L Est GFR ( Amer) > 60 Est GFR (Non-Af Amer) > 60 Random Glucose 116 H Calcium 9.6 Total Bilirubin 0.5 AST 48 H D ALT 30 Alkaline Phosphatase 217 H D Total Protein 6.9 Albumin 3.7 Globulin 3.3 Albumin/Globulin Ratio 1.1 Lipase 110 Venous Blood Potassium 3.8 Assessment & Plan - Assessment and Plan (Free Text) Assessment: This is a 68 year old female with PMH of newly diagnosed HFrEF, bronchiectasis who presents for epigastric abdominal pain for the past [address] with IV contrast done in the ED shows small pneumothorax. Sodium noted to be 119. Plan: Hyponatremia, acute Assessment/Plan * Likely hypovolemic hyponatremia * Sodium 119 on admission * NS IVF at 50 mL/hr * Holding home HF meds (Losartan, Lasix, Aldactone) * F/u urine lytes, urine urea, urine osmolality, TSH, FT4 * F/u BMP q6h Pneumothorax, acute Assessment/Plan * Abdominal CT shows minimal right basilar pnuemothorax * Pulmonology, Dr. Bashir, consulted * 100% O2 via NRB * F/u CXR on 09/11 Abdominal pain, resolved * Likely due to potassium chloride medications pt was discharged with * Abdominal CT with IV contrast prelim reading shows ileus vs developing enteritis; f/u official reading * Leukocytosis likely due to steroid treatment, pt afebrile * Protonix 20 mg PO daily * Given Cipro 400 mg IVPB x 1, Flagyl 500 mg IVPB x 1, Pepcid 20 mg PO, Maalox 30 mL PO in the ED Cystic Bronchiectasis, chronic Bilateral Pneumonia, L pleural effusion Assessment/Plan * Pulmonology, Dr. Bashir, consulted * CT chest (08/22/18): areas of dense consolidation/atelectasis in the left lung base; progressed 03/01/16. Extensive cystic changes seen throughout the left lung and less so the right upper lobe possibly representing cystic bronchiectasis. Left sided effusion possibly with some loculated components. mucous plugging changes or compressive effects on the proximal branches of the left upper and lower lobe of bronchi. mild fatty hepatic infiltration. gastric wall thickening in part of incomplete distension. markedly distended urinary bladder, rule out urinary retention * Recent admission labs (08/22-09/03) * ANCA screen is negative * Proteinase 3 <1.0 * myeloperoxidase <1.0 * b DGlucan negative * indeterminate quantiferon * Aspergillus flavus negative * Aspergillus fumigatus negative * Aspergillus niger negative * HIV negative * influenza negative * Hepatitis negative * Rheumatoid factor IgM elevated at 80 * Blood culture (08/22/18): no growth after 5 days X2 * Myobacterial culture (08/23/18): negative for AFB. prelim * Myobacterial culture (08/25/18): negative for AFB. prelim * Myobacterial culture (08/28/18): negative for AFB. prelim * Mycobacterium complex PCR negative * hisplasmosis AB negative, MARY level normal * continue chest physiotherapy, Duonebs q6, singulair 10 mg PO QHS, Breo ellipta once daily, Mucinex 600 mg PO BID, O2 via 100% NRB Heart Failure with Reduced Ejection Fraction, chronic Assessment/Plan * Echocardiogram (08/27/18) left ventricular systolic function is severely impaired. ejection fraction is 25-30%. atrial septum aneurysmal. possible asd? no aortic regurgitation is present. mitral regurgitation is mild to moderate. mild tricuspid regurgitation. mild pulmonary hypertension. * Cardiac cath showed nonischemic cardiomyopathy. Dr. Pedraza, cardiology, evaluated the pt on last admission and recommended medical HFrEF management rather than lifevest/aicd placement. * Continue Carvedilol 3.125 mg PO BID * Losartan 25 mg PO on hold, Aldactone 12.5 mg PO once daily on hold, Lasix 20 mg PO once daily on hold Cachexia Assessment/Plan * 30lb weight loss in 2 months * Janitor Supervisor referral PPx - DVT ppx: Heparin 5000u SC q12, SCDs - GI: Protonix 20mg po daily - Diet: HHD - Aspiration precautions due to increased mucus production Pt is full code. She reports that her sons will make decisions for her in case she is incapacitated. <Cristian Adams - Last Filed: 09/11/18 18:14> Results - Vital Signs Recent Vital Signs: Last Vital Signs Temp 98.0 F 09/11/18 15:00 Pulse 120 H 09/11/18 15:00 Resp 18 09/11/18 15:00 BP 120/70 09/11/18 15:33 Pulse Ox 95 09/11/18 15:00 - Labs Result Diagrams: 09/11/18 08:55 09/11/18 08:55 Labs: Laboratory Results - last 24 hr 09/10/18 09/10/18 09/10/18 18:52 19:20 22:37 WBC RBC Hgb Hct MCV MCH MCHC RDW Plt Count MPV Neut % (Auto) Lymph % (Auto) Beauregard % (Auto) Eos % (Auto) Baso % (Auto) Neut # (Auto) Lymph # (Auto) Beauregard # (Auto) Eos # (Auto) Baso # (Auto) Neutrophils % (Manual) Lymphocytes % (Manual) Monocytes % (Manual) Platelet Estimate Large Platelets Giant Platelets Polychromasia Hypochromasia (manual) Anisocytosis (manual) Puncture Site pCO2 pO2 HCO3 ABG pH ABG Total CO2 ABG O2 Saturation ABG Base Excess Jose Test ABG Potassium A-a O2 Difference Respiratory Index Glucose Lactate FiO2 Sodium 122 L 123 L Potassium 4.6 4.6 Chloride 88 L 88 L Carbon Dioxide 27 27 Anion Gap 12 12 BUN 17 18 H Creatinine 0.9 0.8 Est GFR ( Amer) > 60 > 60 Est GFR (Non-Af Amer) > 60 > 60 Random Glucose 100 124 H D Calcium 9.0 9.1 Phosphorus Magnesium Total Bilirubin AST ALT Alkaline Phosphatase Total Protein Albumin Globulin Albumin/Globulin Ratio Prolactin Arterial Blood Potassium Urine Osmolality 341 Ur Random Sodium 36 Influenza Typ A,B (EIA) 09/11/18 09/11/18 09/11/18 08:55 08:55 11:30 WBC 19.3 H RBC 4.59 Hgb 11.8 Hct 35.3 MCV 77.0 L MCH 25.8 L MCHC 33.5 RDW 16.6 H Plt Count 244 MPV 9.6 Neut % (Auto) 92.9 H Lymph % (Auto) 3.5 L Beauregard % (Auto) 2.2 Eos % (Auto) 0.9 Baso % (Auto) 0.5 Neut # (Auto) 17.9 H Lymph # (Auto) 0.7 L Beauregard # (Auto) 0.4 Eos # (Auto) 0.2 Baso # (Auto) 0.1 Neutrophils % (Manual) 94 H Lymphocytes % (Manual) 3 L Monocytes % (Manual) 3 Platelet Estimate Normal Large Platelets Present Giant Platelets Present Polychromasia Slight Hypochromasia (manual) Slight Anisocytosis (manual) Slight Puncture Site pCO2 pO2 HCO3 ABG pH ABG Total CO2 ABG O2 Saturation ABG Base Excess Jose Test ABG Potassium A-a O2 Difference Respiratory Index Glucose Lactate FiO2 Sodium 129 L Potassium 4.4 Chloride 95 L Carbon Dioxide 27 Anion Gap 11 BUN 14 Creatinine 0.6 L Est GFR ( Amer) > 60 Est GFR (Non-Af Amer) > 60 Random Glucose 88 D Calcium 9.2 Phosphorus 3.6 Magnesium 1.9 Total Bilirubin 0.6 AST 55 H ALT 24 Alkaline Phosphatase 120 Total Protein 6.6 Albumin 3.4 L Globulin 3.2 Albumin/Globulin Ratio 1.0 Prolactin Arterial Blood Potassium Urine Osmolality Ur Random Sodium Influenza Typ A,B (EIA) Negative for flu a/b 09/11/18 09/11/18 11:39 17:40 WBC RBC Hgb Hct MCV MCH MCHC RDW Plt Count MPV Neut % (Auto) Lymph % (Auto) Beauregard % (Auto) Eos % (Auto) Baso % (Auto) Neut # (Auto) Lymph # (Auto) Beauregard # (Auto) Eos # (Auto) Baso # (Auto) Neutrophils % (Manual) Lymphocytes % (Manual) Monocytes % (Manual) Platelet Estimate Large Platelets Giant Platelets Polychromasia Hypochromasia (manual) Anisocytosis (manual) Puncture Site Rr pCO2 39 pO2 75 L HCO3 27.2 ABG pH 7.45 ABG Total CO2 28.3 H ABG O2 Saturation 97.6 ABG Base Excess 3.0 Jose Test Po ABG Potassium 3.9 A-a O2 Difference 589.0 Respiratory Index 7.9 Glucose 106 H Lactate 1.9 FiO2 100.0 Sodium 131.0 L Potassium Chloride 99.0 Carbon Dioxide Anion Gap BUN Creatinine Est GFR ( Amer) Est GFR (Non-Af Amer) Random Glucose Calcium Phosphorus Magnesium Total Bilirubin AST ALT Alkaline Phosphatase Total Protein Albumin Globulin Albumin/Globulin Ratio Prolactin 17.8 Arterial Blood Potassium 3.9 Urine Osmolality Ur Random Sodium Influenza Typ A,B (EIA) Attending/Attestation - Attestation I have personally seen and examined this patient.: Yes I have fully participated in the care of the patient.: Yes I have reviewed all pertinent clinical information: Yes Notes (Text): 09/11/18 18:13 This is a late entry Care of this patient was gone over in detail with resident Dr. Epps with whom I examined the patient with on 09/10/18. Cristian Adams D.O.
[2018-09-10 06:11] LABS: SQUAMOUS EPITHIAL 1 /hpf (0-5); URINE BILIRUBIN NEGATIVE (NEGATIVE); URINE BLOOD NEGATIVE (NEGATIVE); URINE CLARITY Hazy (Clear); URINE COLOR Yellow (YELLOW); URINE GLUCOSE (UA) NORMAL (Normal); URINE LEUKOCYTE ESTERASE NEG Leu/uL (Negative); URINE PROTEIN NEGATIVE (NEGATIVE); URINE UROBILINOGEN NORMAL mg/dL (0.2-1.0)
[2018-09-10] MEDS: Albuterol-Ipratrop 3 mg / 0.5 (3 ml) UD INH SCH ×2 (07:40→14:00)
[2018-09-10] MEDS ORDERED: Sodium Chloride 0.9% 1,000 ML IV SCH (07:45)
--- NOTE | 2018-09-10 07:56 | CP.PCM.PN ---
Subjective - Date & Time of Evaluation Date of Evaluation: 09/10/18 Time of Evaluation: 07:47 - Subjective Subjective: Assessment * Hyponatremia from hypovolemia likely from diuretics with secondary suspected ADH stimulation * Very small pneumothorax in presence of chronic nodular interstitial lung disease * Tachypnea and tachycardia secondary to above but patient attributes it to nervousness * Poor lv function * leucocytosis likely from steroids * Clinically no entritis * Weight loss and emaciation from above Plan * Slow hydration, watch for rapid sodium correction with reduction of ADH stimulation * 100% fio2 to replace n2 with o2 in the pneumothorax, f/u xrays * Pulmonary consult * Counselled about need for definative diagnosis to treat the lung disease * GI/DVT prophylaxis * See order for detail. Objective - Vital Signs/Intake and Output Vital Signs (last 24 hours): Temp Pulse Resp BP Pulse Ox 98.7 F 114 H 26 H 128/76 95 09/10/18 05:30 09/10/18 06:30 09/10/18 06:30 09/10/18 06:30 09/10/18 06:30 - Medications Medications: Current Medications Albuterol/Ipratropium (Duoneb 3 Mg/0.5 Mg (3 Ml) Ud) 3 ml INH RQ6 [facility] Carvedilol (Coreg) 3.125 mg PO BID [facility] Fluticasone/Vilanterol (Breo Ellipta 100-25 Mcg Inh) 1 puff INH RQD [facility] Guaifenesin (Mucinex La) 600 mg PO BID [facility] Sodium Chloride (Sodium Chloride 0.9%) 1,000 mls @ 50 mls/hr IV .Q20H [facility] Montelukast Sodium (Singulair) 10 mg PO HS [facility] - Labs Labs: 09/10/18 02:27 09/10/18 02:27
[2018-09-10 09:03] LABS: BLOOD UREA NITROGEN 18 mg/dL (7-17); CALCIUM 9.4 mg/dl (8.6-10.4); GFR NON-AFRICAN AMERICAN > 60
[2018-09-10] MEDS: guaiFENesin 600 mg ER Tab PO SCH ×2 (09:24→17:17)
[2018-09-10] MEDS: Pantoprazole 20 mg EC Tab PO SCH (09:24)
--- NOTE | 2018-09-10 10:34 | CT ---
Date of service: 09/10/2018 PROCEDURE: CT Abdomen and Pelvis with contrast HISTORY: abd pain, vomiting COMPARISON: Comparesion 08/22/18 TECHNIQUE: Contrast dose: 80 ml visipaque IV. Radiation dose: Total exam DLP = 197.88 mGy-cm. This CT exam was performed using one or more of the following dose reduction techniques: Automated exposure control, adjustment of the mA and/or kV according to patient size, and/or use of iterative reconstruction technique. FINDINGS: LOWER THORAX: Airspace and ground-glass opacities at the right lower lung. Small right sided pneumothorax. Small left sided pleural effusion and left lower lobe atelectasis. LIVER: Unremarkable. No gross lesion or ductal dilatation. GALLBLADDER AND BILE DUCTS: Unremarkable. PANCREAS: Unremarkable. No gross lesion or ductal dilatation. SPLEEN: Unremarkable. ADRENALS: Unremarkable. No mass. KIDNEYS AND URETERS: Unremarkable. No hydronephrosis. No solid mass. VASCULATURE: Unremarkable. No aortic aneurysm. No aortic atherosclerotic calcification or mural plaque present. BOWEL: Mildly distended small and large bowel loops.. Mild constipation. No obstruction. No gross mural thickening. APPENDIX: Normal appendix. PERITONEUM: Unremarkable. No free fluid. No free air. LYMPH NODES: Unremarkable. No enlarged lymph nodes. BLADDER: Unremarkable. REPRODUCTIVE: Unremarkable. BONES: No acute fracture. OTHER FINDINGS: None. IMPRESSION: Small right pneumothorax. Dedicated CT of the chest is recommended.Opacities in the right lower lung. Possible mild bowel ileus. Preliminary report was submitted by [facility].
--- NOTE | 2018-09-10 11:08 | CP.PCM.PN ---
Subjective - Date & Time of Evaluation Date of Evaluation: 09/10/18 Time of Evaluation: 10:40 - Subjective Subjective: Medicine Progress Note for Dr. Adams's service Objective - Vital Signs/Intake and Output Vital Signs (last 24 hours): Temp Pulse Resp BP Pulse Ox 97.6 F 109 H 20 100/66 96 09/10/18 08:04 09/10/18 08:04 09/10/18 08:04 09/10/18 08:04 09/10/18 08:04 - Medications Medications: Current Medications Albuterol/Ipratropium (Duoneb 3 Mg/0.5 Mg (3 Ml) Ud) 3 ml INH RQ6 [facility] Carvedilol (Coreg) 3.125 mg PO BID [facility] Last Admin: 09/10/18 09:24 Dose: 3.125 mg Fluticasone/Vilanterol (Breo Ellipta 100-25 Mcg Inh) 1 puff INH RQD [facility] Guaifenesin (Mucinex La) 600 mg PO BID [facility] Last Admin: 09/10/18 09:24 Dose: 600 mg Heparin Sodium (Porcine) (Heparin) 5,000 units SC Q12 [facility] Last Admin: 09/10/18 09:24 Dose: 5,000 units Sodium Chloride (Sodium Chloride 0.9%) 1,000 mls @ 50 mls/hr IV .Q20H [facility] Last Admin: 09/10/18 09:23 Dose: 50 mls/hr Montelukast Sodium (Singulair) 10 mg PO HS [facility] Pantoprazole Sodium (Protonix Ec Tab) 20 mg PO DAILY [facility] Last Admin: 09/10/18 09:24 Dose: 20 mg - Labs Labs: 09/10/18 02:27 09/10/18 08:37 - Additional Findings Additional findings: - Constitutional Appears: No Acute Distress, Cachectic - Head Exam Head Exam: ATRAUMATIC, NORMOCEPHALIC - Eye Exam Eye Exam: EOMI, Normal appearance - ENT Exam ENT Exam: Mucous Membranes Dry - Respiratory Exam Respiratory Exam: Decreased Breath Sounds, Rales, Rhonchi - Cardiovascular Exam Cardiovascular Exam: +S1, +S2, Tachycardia. Sinus tachycardia on tele monitor. - GI/Abdominal Exam GI & Abdominal Exam: Soft, Normal Bowel Sounds. absent: Tenderness - Extremities Exam Extremities Exam: Normal Inspection. absent: Calf Tenderness - Neurological Exam Neurological Exam: Alert, Awake, Oriented x3. CN2-12 grossly normal. 5/5 stre ngth in bilateral upper and lower extremities. - Psychiatric Exam Psychiatric exam: Anxious. Normal affect. Normal mood. - Skin Skin Exam: Dry, Intact, Normal Color, Warm. Decreased skin turgor Assessment and Plan - Assessment and Plan (Free Text) Assessment: This is a 68 year old female with PMH of newly diagnosed HFrEF, bronchiectasis who presents for epigastric abdominal pain for the past [address] with IV contrast done in the ED shows small pneumothorax. Sodium noted on admission 119. Plan: Hyponatremia, acute Assessment/Plan Likely hypovolemic hyponatremia Sodium 119 on admission; Sosm low; Sodium trending up NS IVF at 50 mL/hr Holding home HF meds (Losartan, Lasix, Aldactone) BMP q6h Pneumothorax, acute Assessment/Plan Abdominal CT shows minimal right basilar pnuemothorax Pulmonology, Dr. Bashir, consulted 100% O2 via NRB F/u CXR on 09/11 Abdominal pain, resolved Likely due to potassium chloride medications pt was discharged with Abdominal CT with IV contrast prelim reading shows ileus vs developing enteritis; f/u official reading Leukocytosis likely due to steroid treatment, pt afebrile Protonix 20 mg PO daily Given Cipro 400 mg IVPB x 1, Flagyl 500 mg IVPB x 1, Pepcid 20 mg PO, Maalox 30 mL PO in the ED Cystic Bronchiectasis, chronic Bilateral Pneumonia, L pleural effusion Assessment/Plan Pulmonology, Dr. Bashir, consulted CT chest (08/22/18): areas of dense consolidation/atelectasis in the left lung base; progressed 03/01/16. Extensive cystic changes seen throughout the left lung and less so the right upper lobe possibly representing cystic bronchiectasis. Left sided effusion possibly with some loculated components. mucous plugging changes or compressive effects on the proximal branches of the left upper and lower lobe of bronchi. mild fatty hepatic infiltration. gastric wall thickening in part of incomplete distension. markedly distended urinary bladder, rule out urinary retention Recent admission labs (08/22-09/03) * ANCA screen is negative * Proteinase 3 <1.0 * myeloperoxidase <1.0 * b DGlucan negative * indeterminate quantiferon * Aspergillus flavus negative * Aspergillus fumigatus negative * Aspergillus niger negative * HIV negative * influenza negative * Hepatitis negative * Rheumatoid factor IgM elevated at 80 * Blood culture (08/22/18): no growth after 5 days X2 * Myobacterial culture (08/23/18): negative for AFB. prelim * Myobacterial culture (08/25/18): negative for AFB. prelim * Myobacterial culture (08/28/18): negative for AFB. prelim * Mycobacterium complex PCR negative * hisplasmosis AB negative, MARY level normal chest physiotherapy, Duonebs q6, singulair 10 mg PO QHS, Breo ellipta once daily, Mucinex 600 mg PO BID, O2 via 100% NRB Heart Failure with Reduced Ejection Fraction, chronic Assessment/Plan Echocardiogram (08/27/18) left ventricular systolic function is severely impaired. ejection fraction is 25-30%. atrial septum aneurysmal. possible asd? no aortic regurgitation is present. mitral regurgitation is mild to moderate. mild tricuspid regurgitation. mild pulmonary hypertension. Cardiac cath showed nonischemic cardiomyopathy. Dr. Pedraza, cardiology, evaluated the pt on last admission and recommended medical HFrEF management rather than lifevest/aicd placement. Continue Carvedilol 3.125 mg PO BID Losartan 25 mg PO on hold, Aldactone 12.5 mg PO once daily on hold, Lasix 20 mg PO once daily on hold Cachexia Assessment/Plan 30lb weight loss in 2 months Dishtank Operator referral PPx DVT ppx: Heparin 5000u SC q12, SCDs GI: Protonix 20mg po daily Diet: HHD Aspiration precautions due to increased mucus production Pt is full code. She reports that her sons will make decisions for her in case she is incapacitated PGY-1 Cruz Epps Case d/w Dr. Adams
[2018-09-10 12:04] LABS: OSMOLALITY,URINE 425 mosm/kg (300-1000)
[2018-09-10] MEDS: Fluticasone-Vilanterol 100/25mcg Diskus INH SCH (14:00)
[2018-09-10 19:03] LABS: OSMOLALITY,URINE 341 mosm/kg (300-1000)
[2018-09-10 19:36] LABS: BLOOD UREA NITROGEN 17 mg/dL (7-17); GFR NON-AFRICAN AMERICAN > 60
[2018-09-10] MEDS: Sodium Chloride 0.9% 1,000 ML IV SCH (21:41)
[2018-09-10 22:52] LABS: BLOOD UREA NITROGEN 18 mg/dL (7-17); CALCIUM 9.1 mg/dl (8.6-10.4); GFR NON-AFRICAN AMERICAN > 60
--- NOTE | 2018-09-11 01:00 | CON ---
DATE: 09/10/2018 NEPHROLOGY CONSULTATION HISTORY OF PRESENT ILLNESS: The patient is a 68-year-old female with past medical history of newly diagnosed CHF with systolic dysfunction and bronchiectasis, presented with epigastric abdominal pain yesterday. Nephrology being consulted for severe hyponatremia. History is taken from both the patient and medical record. The patient was discharged just one week ago after admission with decompensated CHF and bilateral pneumonia in the setting of newly diagnosed bronchiectasis. The patient reports abdominal pain that apparently began five days prior to presentation and has currently resolved. The patient denies any associated nausea, vomiting, or diarrhea. The patient reports normal p.o. dietary intake. She does admit to drinking a lot of water, quantified as five glasses per day. Reports urinating at least four times per night. The patient otherwise denies any shortness of breath or leg swelling. The patient has been noted to have 20 to 30-pound weight loss over the past one plus month (rearing account provided by the patient). She does report some night sweats, but not to the extent of her clothes being drenched. Denies any fevers. The patient on last admission was started on medications for CHF optimization including beta-mohsen, ARB, Aldactone, and Lasix. PAST MEDICAL HISTORY: As above. The patient underwent cardiac cath on last admission, showing no obstructive disease with normal filling pressures on right heart cath. SOCIAL HISTORY: Denies smoking. Used to work in a factory involving packaging of plastic material. FAMILY HISTORY: The patient denies any family medical history. REVIEW OF SYSTEMS: CONSTITUTIONAL: As per HPI. RESPIRATORY: The patient reports mild cough. CARDIOVASCULAR: Denies chest pain or palpitation (did have non-sustained V-tach on last admission, prompting cardiac workup). GASTROINTESTINAL: As per HPI. GENITOURINARY: As per HPI. MUSCULOSKELETAL: Denies any arthralgias or back pain. SKIN: Denies any pruritus or rashes. NEUROLOGIC: Reports some dizziness. No headaches. PHYSICAL EXAMINATION: VITAL SIGNS: This morning, blood pressure 100/66, heart rate 109, respirations 20, temperature 97.6, and O2 sat 96% on 3 L via nasal cannula. GENERAL: No distress, conversing coherently in full sentences. HEENT: Moist mucous membranes. Nonicteric. No cervical lymphadenopathy. RESPIRATORY: The patient with rhonchorous sounds bilaterally, scattered rales. CARDIOVASCULAR: Soft systolic murmur. Regular rate and rhythm. No gallops. No rubs. GASTROINTESTINAL: Abdomen is soft, nontender, and nondistended. NEUROLOGIC: No resting tremor. PSYCHIATRIC: Normal mood. Normal affect. SKIN: Warm. No cyanosis. EXTREMITIES: No lower leg edema. LABORATORY DATA: CBC: WBC 20.1, hemoglobin 12.3, hematocrit 37, and platelets 258. Chemistry panel: Sodium on presentation 119, improving to 121 today; potassium 5.1; chloride 87; bicarb 23; BUN 24; creatinine 0.6; glucose 116; and calcium 9.6. Albumin is 3.7. Urine studies: UA: Urine specific gravity 1.029, negative blood, negative protein, urine osmolality 425, and urine sodium 34 this morning. ASSESSMENT AND PLAN: 1. Hyponatremia, severe in the setting of being on potassium sparing and loop diuretics. Unclear if the patient is having adequate oral intake, but reports drinking copious amounts of water. Agree with primary team that volume depletion needs to be corrected first before we look for another etiology. No evidence of being in overt heart failure. -Agree with gentle intravenous fluids with normal saline at 50 mL per hour; will increase to 75 cc/hr if rate of correction of hyponatremia is too slow; -Continue to monitor serum sodium every 6 hours. Goal rate of rise of serum sodium should be no more than 6-8 mEq/L in 24 hours. -Maintain 1 L oral fluid restriction. -Repeating urine osmolality. If urine osmolality drops significantly, we should stop intravenous fluids. 2. Congestive heart failure with systolic dysfunction. Appears relatively euvolemic at this time; right heart cath last week also showed relatively normal pressures; nevertheless, giving gentle intravenous fluids as above cautiously in the setting of knwon systolic failure. -Agree with holding Aldactone, Lasix, and losartan for now. -Continue beta mohsen for congestive heart failure optimization. Thank you for this referral. We will be following up closely. Odell Lindsay MD SHAHEED
[2018-09-11] MEDS: Albuterol-Ipratrop 3 mg / 0.5 (3 ml) UD INH SCH ×3 (07:44→20:16)
[2018-09-11 09:06] LABS: BASO # 0.1 K/uL (0.0-0.2); BASO % 0.5 % (0.0-2.0); EOS # 0.2 K/uL (0.0-0.7); EOS % 0.9 % (0.0-4.0); HEMOGLOBIN 11.8 g/dL (11.0-16.0); LYMPH # 0.7 K/uL (1.0-4.3); LYMPH % 3.5 % (20.0-40.0); MEAN CORPUSCULAR HEMOGLOBIN 25.8 pg (27.0-31.0); MEAN CORPUSCULAR HGB CONC 33.5 g/dL (33.0-37.0); MEAN PLATELET VOLUME 9.6 fL (7.2-11.7); MONO # 0.4 K/uL (0.0-0.8); MONO % 2.2 % (0.0-10.0); NEUT # 17.9 K/uL (1.8-7.0); NEUT % 92.9 % (50.0-75.0); PLATELET COUNT 244 K/uL (130-400); RBC 4.59 Mil/uL (3.80-5.20); RED CELL DISTRIBUTION WIDTH 16.6 % (11.5-14.5); WHITE BLOOD COUNT 19.3 K/uL (4.8-10.8)
[2018-09-11] MEDS: Sodium Chloride 0.9% 1,000 ML IV SCH (09:14)
[2018-09-11 09:25] LABS: ALBUMIN 3.4 g/dL (3.5-5.0); ALT/SGPT 24 U/L (9-52); AST/SGOT 55 U/L (14-36); BLOOD UREA NITROGEN 14 mg/dL (7-17); CALCIUM 9.2 mg/dl (8.6-10.4); GFR NON-AFRICAN AMERICAN > 60
[2018-09-11] MEDS: guaiFENesin 600 mg ER Tab PO SCH ×2 (10:08→17:39)
[2018-09-11] MEDS: Pantoprazole 20 mg EC Tab PO SCH (10:08)
[2018-09-11] MEDS: Fluticasone-Vilanterol 100/25mcg Diskus INH SCH (10:09)
[2018-09-11 10:50] LABS: LYMPHOCYTE 3 % (20-40); MONOCYTE 3 % (0-10); NEUTROPHIL 94 % (50-75); TOTAL CELLS COUNTED 100
[2018-09-11 10:51] LABS: LARGE PLATELETS PRESENT; PLATELET ESTIMATE NORMAL (NORMAL)
[2018-09-11 10:52] LABS: ANISOCYTOSIS SLIGHT; HYPOCHROMIC SLIGHT; POLYCHROMIC SLIGHT
[2018-09-11 10:53] LABS: GIANT PLATELETS PRESENT
--- NOTE | 2018-09-11 11:52 | RAD ---
Date of service: 09/11/2018 HISTORY: f/u for pneumothorax COMPARISON: Comparison is made with 08/22/2018 TECHNIQUE: Chest PA and lateral views FINDINGS: LUNGS: Again seen are diffuse heterogeneous opacities in the lungs larger on the right. Interval improvement in the left lung noted since the previous exam. PLEURA: Suspicious for right-sided pneumothorax small approximately 10 percent. Possible left pleural effusion. CARDIOVASCULAR: No aortic atherosclerotic calcification present. Normal cardiac size. No pulmonary vascular congestion. OSSEOUS STRUCTURES: No significant abnormalities. VISUALIZED UPPER ABDOMEN: Normal. OTHER FINDINGS: None. IMPRESSION: Interval mild improvement in the left lung. Suspicious for right-sided small 10 percent pneumothorax. Please correlate clinically. If indicated further evaluation by CT may be obtained.
--- NOTE | 2018-09-11 13:49 | CT ---
Date of service: 09/11/2018 PROCEDURE: CT Chest without contrast HISTORY: Pneumothorax on Right Upper. Hx Bronchiectasis COMPARISON: Comparison is made with 08/22/[address] dated 03/01/2016 TECHNIQUE: Contiguous axial images were obtained through the chest without intravenous contrast enhancement. Sagittal and coronal reconstructions were performed. Radiation dose: Total exam DLP = 135.05 mGy-cm. This CT exam was performed using one or more of the following dose reduction techniques: Automated exposure control, adjustment of the mA and/or kV according to patient size, and/or use of iterative reconstruction technique. FINDINGS: LUNGS: Again noted are foci of airspace consolidation in both lungs and diffuse cystic formation. Again noted are at least 2 cavitary formation at the left lung lower lobe. The cystic formations are not connected with the bronchi therefore the possibility of cystic bronchiectasis is less likely. Large airspace consolidation at the left lung lower lobe is again noted contains 2 cavitary formation. MEDIASTINUM: Unremarkable thoracic aorta. No aneurysm. The heart is mildly enlarged. No evidence of pericardial effusion. Main pulmonary artery unremarkable. No vascular congestion. Again noted are scattered [id number] enlarged mediastinal and hilar lymphadenopathy. Foci of calcification are also noted at the hilum likely represent calcified lymph nodes more prominent on the left. Foci of atherosclerotic calcification are again noted. PLEURA: There is interval appearance of small right-sided pneumothorax measures approximately 5- 10percent since the prior study. Small left pleural effusion is noted. BONES: No fracture. No destructive lesion. UPPER ABDOMEN: No evidence of acute pathology in the visualized portion of the upper abdomen. OTHER FINDINGS: None. IMPRESSION: Interval appearance of small 5-10 percent right-sided pneumothorax since the previous exam dated 08/22/2018. No significant interval changes in the lungs noted otherwise as discussed above.
--- NOTE | 2018-09-11 14:09 | CP.PCM.CON ---
History of Present Illness - History of Present Illness History of Present Illness: Pulmonary Consult, Covering Dr Bashir The Patient was seen and examined at the bedside, Medical records reviewed, and management issues were discussed and formulated with the house staff. Events reviewed Mrs Negron is a 68 years old female with past medical history of congestive heart failure with reduced ejection fraction, bronchiectasis and Asthma Who presented to the emergency room with complaint of abdominal pain for the past 5 days She was she was also noted with shortness of breath, cough, no fever/chills Pt admits 30 lb weight loss of the last 2 months. Chest x-ray and CT scan showed small right-sided pneumothorax, bilateral bronchiectasis, fibrosis, and chronic extensive bilateral groundglass appearance with upper lobe cystic lung disease Patient is well-known to the pulmonary service, for a recent hospitalization but at that time it was mostly respiratory complaint, multiple extensive discussions with the patient and her sons about the need for tissue biopsy through bronchoscopy with declined I discussed with the patient again today that need for lung biopsy could be done by bronchoscopy or open lung biopsy Again she declined and she defer to her son who we called but no response PMHx: Asthma, HFrEF, bronchiectasis PSHx- c/s x1 Fam Hx- Sister with DM and cardiac bypass surgery; Brother with GA Social hx- denies ever tobacco, alcohol, or illicit drug use Meds: Losartan 25 mg PO once daily, Aldactone 12.5 mg PO once daily, Aspirin 81 mg PO once daily, Carvedilol 3.125 mg PO BID, Furosemide 40 mg PO once daily, Levaquin 500 mg PO once daily for 10 days, Acapella valve for chest PT, Breo ellipta 1 pump daily, Duoneb q 6 hours, Singulair 10 mg PO QHS, Mucinex 600 mg PO BID, Medrol dose pack Allergies- Nyquil and Advil PMD- None currently Full Code Review of Systems - Constitutional Constitutional: absent: Chills, Daytime Sleepiness, Excessive Sweating, Fatigue, Fever - Cardiovascular Cardiovascular: absent: Acrocyanosis, Chest Pain, Chest Pain at Rest, Chest Pain with Activity, Claudication, Diaphoresis - Respiratory Respiratory: Cough, Dyspnea, Dyspnea on Exertion. absent: Hemoptysis, Wheezing, Snoring Past Patient History - Infectious Disease Hx of Infectious Diseases: None - Past Medical History & Family History Past Medical History?: Yes - Past Social History Smoking Status: Never Smoked - CARDIAC Hx Cardiac Disorders: No - PULMONARY Hx Asthma: Yes - NEUROLOGICAL Hx Neurological Disorder: No - HEENT Hx HEENT Problems: No - RENAL Hx Chronic Kidney Disease: No - ENDOCRINE/METABOLIC Hx Endocrine Disorders: No - HEMATOLOGICAL/ONCOLOGICAL Hx Blood Disorders: No - INTEGUMENTARY Hx Dermatological Problems: No - MUSCULOSKELETAL/RHEUMATOLOGICAL Hx Musculoskeletal Disorders: No Hx Falls: No - GASTROINTESTINAL Hx Gastrointestinal Disorders: No - GENITOURINARY/GYNECOLOGICAL Hx Genitourinary Disorders: No - PSYCHIATRIC Hx Substance Use: No - SURGICAL HISTORY Hx Surgeries: Yes Hx Section: Yes - ANESTHESIA Hx Anesthesia: Yes Hx Anesthesia Reactions: No Hx Malignant Hyperthermia: No Meds Allergies/Adverse Reactions: Allergies Allergy/AdvReac Type Severity Reaction Status Date / Time acetaminophen [From NyQuil] Allergy Verified 08/22/18 12:02 dextromethorphan HBr Allergy Verified 08/22/18 12:02 [From NyQuil] doxylamine succinate Allergy Verified 08/22/18 12:02 [From NyQuil] ibuprofen [From Advil] Allergy Verified 08/22/18 12:02 pseudoephedrine HCl Allergy Verified 08/22/18 12:02 [From NyQuil] - Medications Medications: Current Medications Albuterol/Ipratropium (Duoneb 3 Mg/0.5 Mg (3 Ml) Ud) [address] [facility] Last Admin: 09/11/18 13:42 Dose: 3 ml Carvedilol (Coreg) 3.[address] [facility] Fluticasone/Vilanterol (Breo Ellipta 100-25 Mcg Inh) [address] [facility] Last Admin: 09/11/18 10:09 Dose: Not Given Guaifenesin (Mucinex La) [address] [facility] Last Admin: 09/11/18 10:08 Dose: 600 mg Heparin Sodium (Porcine) (Heparin) 5,[address] [facility] Last Admin: 09/11/18 10:08 Dose: Not Given Montelukast Sodium (Singulair) [address] [facility] Last Admin: 09/10/18 21:40 Dose: 10 mg Pantoprazole Sodium (Protonix Ec Tab) [address] [facility] Last Admin: 09/11/18 10:08 Dose: 20 mg Physical Exam - Constitutional Appears: Well, Non-toxic, No Acute Distress, Older Than Stated Age, Cachectic, Chronically Ill - Head Exam Head Exam: ATRAUMATIC, NORMAL INSPECTION, NORMOCEPHALIC - Eye Exam Eye Exam: EOMI, Normal appearance Pupil Exam: NORMAL ACCOMODATION, PERRL - ENT Exam ENT Exam: Mucous Membranes Moist, Normal Exam - Neck Exam Neck exam: Positive for: Full Rom, Normal Inspection. Negative for: Lymphadenopathy, Meningismus - Respiratory Exam Respiratory Exam: Chest Wall Tenderness, Decreased Breath Sounds, Prolonged Expiratory Phase, Rales, Rhonchi. absent: Accessory Muscle Use, Clear to Auscultation Bilateral, Wheezes, Respiratory Distress - Cardiovascular Exam Cardiovascular Exam: REGULAR RHYTHM, RRR, +S1, +S2. absent: Bradycardia, Tach ycardia, JVD - GI/Abdominal Exam GI & Abdominal Exam: Normal Bowel Sounds, Soft. absent: Tenderness - Back Exam Back exam: absent: CVA tenderness (L), CVA tenderness (R) - Neurological Exam Neurological exam: Alert, CN II-XII Intact, Motor Sensory Deficit, Normal Gait, Oriented x3 Results - Vital Signs Recent Vital Signs: Last Vital Signs Temp 100.4 F H 09/11/18 07:00 Pulse 140 H 09/11/18 07:00 Resp 20 09/11/18 07:00 BP 144/92 H 09/11/18 07:00 Pulse Ox 94 L 09/11/18 07:00 - Labs Result Diagrams: 09/19/18 06:12 09/19/18 06:12 Labs: Laboratory Results - last 24 hr 09/10/18 09/10/18 09/10/18 18:52 19:20 22:37 WBC RBC Hgb Hct MCV MCH MCHC RDW Plt Count MPV Neut % (Auto) Lymph % (Auto) Green % (Auto) Eos % (Auto) Baso % (Auto) Neut # (Auto) Lymph # (Auto) Green # (Auto) Eos # (Auto) Baso # (Auto) Neutrophils % (Manual) Lymphocytes % (Manual) Monocytes % (Manual) Platelet Estimate Large Platelets Giant Platelets Polychromasia Hypochromasia (manual) Anisocytosis (manual) Sodium 122 L 123 L Potassium 4.6 4.6 Chloride 88 L 88 L Carbon Dioxide 27 27 Anion Gap 12 12 BUN 17 18 H Creatinine 0.9 0.8 Est GFR ( Amer) > 60 > 60 Est GFR (Non-Af Amer) > 60 > 60 Random Glucose 100 124 H D Calcium 9.0 9.1 Phosphorus Magnesium Total Bilirubin AST ALT Alkaline Phosphatase Total Protein Albumin Globulin Albumin/Globulin Ratio Prolactin Urine Osmolality 341 Ur Random Sodium 36 Influenza Typ A,B (EIA) 09/11/18 09/11/18 09/11/18 08:55 08:55 11:30 WBC 19.3 H RBC 4.59 Hgb 11.8 Hct 35.3 MCV 77.0 L MCH 25.8 L MCHC 33.5 RDW 16.6 H Plt Count 244 MPV 9.6 Neut % (Auto) 92.9 H Lymph % (Auto) 3.5 L Green % (Auto) 2.2 Eos % (Auto) 0.9 Baso % (Auto) 0.5 Neut # (Auto) 17.9 H Lymph # (Auto) 0.7 L Green # (Auto) 0.4 Eos # (Auto) 0.2 Baso # (Auto) 0.1 Neutrophils % (Manual) 94 H Lymphocytes % (Manual) 3 L Monocytes % (Manual) 3 Platelet Estimate Normal Large Platelets Present Giant Platelets Present Polychromasia Slight Hypochromasia (manual) Slight Anisocytosis (manual) Slight Sodium 129 L Potassium 4.4 Chloride 95 L Carbon Dioxide 27 Anion Gap 11 BUN 14 Creatinine 0.6 L Est GFR ( Amer) > 60 Est GFR (Non-Af Amer) > 60 Random Glucose 88 D Calcium 9.2 Phosphorus 3.6 Magnesium 1.9 Total Bilirubin 0.6 AST 55 H ALT 24 Alkaline Phosphatase 120 Total Protein 6.6 Albumin 3.4 L Globulin 3.2 Albumin/Globulin Ratio 1.0 Prolactin Urine Osmolality Ur Random Sodium Influenza Typ A,B (EIA) Negative for flu a/b 09/11/18 11:39 WBC RBC Hgb Hct MCV MCH MCHC RDW Plt Count MPV Neut % (Auto) Lymph % (Auto) Green % (Auto) Eos % (Auto) Baso % (Auto) Neut # (Auto) Lymph # (Auto) Green # (Auto) Eos # (Auto) Baso # (Auto) Neutrophils % (Manual) Lymphocytes % (Manual) Monocytes % (Manual) Platelet Estimate Large Platelets Giant Platelets Polychromasia Hypochromasia (manual) Anisocytosis (manual) Sodium Potassium Chloride Carbon Dioxide Anion Gap BUN Creatinine Est GFR ( Amer) Est GFR (Non-Af Amer) Random Glucose Calcium Phosphorus Magnesium Total Bilirubin AST ALT Alkaline Phosphatase Total Protein Albumin Globulin Albumin/Globulin Ratio Prolactin 17.8 Urine Osmolality Ur Random Sodium Influenza Typ A,B (EIA) Assessment & Plan (1) Acute respiratory failure Status: Acute Priority: High (2) Hyponatremia Status: Acute Priority: High (3) Pneumonia Status: Acute Priority: High (4) Pneumothorax Status: Acute Priority: High (5) Prophylactic measure Status: Acute Priority: High (6) Pulmonary fibrosis Status: Acute Priority: High (7) Systolic heart failure Status: Acute Priority: High (8) Bronchiectasis with (acute) exacerbation Status: Acute Priority: High (9) Congestive heart failure Status: Acute Priority: High (10) Hypertension Status: Acute Priority: High (11) Pleural effusion Status: Acute Priority: High - Assessment and Plan (Free Text) Assessment: Patient seen and examined on the medical floor, management issues were discussed and formulated with the house staff Currently she is comfortable, in no apparent distress, adequate saturation on nasal cannula Acute respiratory failure with hypoxemia, likely multifactorial from spontaneous secondary right sided pneumothorax, acute exacerbation of bronchiectasis, healthcare associated pneumonia on top of chronic pulmonary conditions including pulmonary fibrosis Continue management on the medical tillman, low threshold for transfer to the intensive care unit Stat ABG Broad-spectrum antibiotic coverage Supplemental oxygen to keep saturation above 94% Thoracic surgery consult Maintain aspiration precaution
--- NOTE | 2018-09-11 14:43 | CP.PCM.PN ---
<Cruz Epps - Last Filed: 09/11/18 15:05> Subjective - Date & Time of Evaluation Date of Evaluation: 09/11/18 Time of Evaluation: 14:40 - Subjective Subjective: Medicine Progress Note for Dr. Adams's service S/E at bedside. Fever overnight as per nursing. Put on rebreather due to hypoxia. Tolerating well but significant cough with no sputum production. Admits to sob. Denies cp, n/v, constipation or diarrhea, and dyusria. Objective - Vital Signs/Intake and Output Vital Signs (last 24 hours): Temp Pulse Resp BP Pulse Ox 100.4 F H 140 H 20 144/92 H 94 L 09/11/18 07:00 09/11/18 07:00 09/11/18 07:00 09/11/18 07:00 09/11/18 07:00 Intake and Output: 09/11/18 09/11/18 06:59 18:59 Intake Total 1050 300 Balance 1050 300 - Medications Medications: Current Medications Albuterol/Ipratropium (Duoneb 3 Mg/0.5 Mg (3 Ml) Ud) 3 ml INH RQ6 [facility] Last Admin: 09/11/18 13:42 Dose: 3 ml Carvedilol (Coreg) 3.125 mg PO BID [facility] Fluticasone/Vilanterol (Breo Ellipta 100-25 Mcg Inh) 1 puff INH RQD [facility] Last Admin: 09/11/18 10:09 Dose: Not Given Guaifenesin (Mucinex La) 600 mg PO BID [facility] Last Admin: 09/11/18 10:08 Dose: 600 mg Heparin Sodium (Porcine) (Heparin) 5,000 units SC Q12 [facility] Last Admin: 09/11/18 10:08 Dose: Not Given Montelukast Sodium (Singulair) 10 mg PO HS [facility] Last Admin: 09/10/18 21:40 Dose: 10 mg Pantoprazole Sodium (Protonix Ec Tab) 20 mg PO DAILY [facility] Last Admin: 09/11/18 10:08 Dose: 20 mg - Labs Labs: 09/11/18 08:55 09/11/18 08:55 - Additional Findings Additional findings: - Constitutional Appears: No Acute Distress, Cachectic - Head Exam Head Exam: ATRAUMATIC, NORMOCEPHALIC - Eye Exam Eye Exam: EOMI, Normal appearance - ENT Exam ENT Exam: Mucous Membranes Dry - Respiratory Exam Respiratory Exam: Decreased Breath Sounds, Rales, Rhonchi, Respiratory distress on non-rebreather - Cardiovascular Exam Cardiovascular Exam: +S1, +S2, Tachycardia. Sinus tachycardia on tele monitor. - GI/Abdominal Exam GI & Abdominal Exam: Soft, Normal Bowel Sounds. absent: Tenderness - Extremities Exam Extremities Exam: Normal Inspection. absent: Calf Tenderness - Neurological Exam Neurological Exam: Alert, Awake, Oriented x3. CN2-12 grossly normal. 5/5 strength in bilateral upper and lower extremities. - Psychiatric Exam Psychiatric exam: Anxious. Normal affect. Normal mood. - Skin Skin Exam: Dry, Intact, Normal Color, Warm. Decreased skin turgor Assessment and Plan - Assessment and Plan (Free Text) Assessment: This is a 68 year old female with PMH of newly diagnosed HFrEF, bronchiectasis who presents for epigastric abdominal pain for the past [address] with IV contrast done in the ED shows small pneumothorax. Sodium noted to be 119. Hyponatremia * Likely hypovolemic hyponatremia * Nephro Consulted: Dr. Angélica malik appreciated * Resolving; Sodium uptrending; Goal of 6-8 in 24hrs from 4/6 8AM to 4/7 8AM * Repeat CMP in AM Pneumothorax, acute * Abdominal CT shows minimal right basilar pnuemothorax * Pulmonology, Dr. Bashir, consulted * on Non-rebreather * CXR 4-7: suspicious for righted small 10 percent pneumothorax * CT chest 4-7: interval apperance of small 5-10% right sided pneumothorax; 2 cavitary formation of left lower lung possible cystic bronchiectasis, small left pleural effusion * ABG pending, will go to high flow if necessary Abdominal pain, resolved * Likely due to potassium chloride medications pt was discharged with * Abdominal CT with IV contrast prelim reading shows ileus vs developing enteritis; f/u official reading * Leukocytosis likely due to steroid treatment, pt afebrile * Protonix 20 mg PO daily * Given Cipro 400 mg IVPB x 1, Flagyl 500 mg IVPB x 1, Pepcid 20 mg PO, Maalox 30 mL PO in the ED Cystic Bronchiectasis, chronic Bilateral Pneumonia, L pleural effusion * Pulmonology, Dr. Bashir, consulted * CT chest (08/22/18): areas of dense consolidation/atelectasis in the left lung base; progressed 03/01/16. Extensive cystic changes seen throughout the left lung and less so the right upper lobe possibly representing cystic bronchiectasis. Left sided effusion possibly with some loculated components. mucous plugging changes or compressive effects on the proximal branches of the left upper and lower lobe of bronchi. mild fatty hepatic infiltration. gastric wall thickening in part of incomplete distension. markedly distended urinary bladder, rule out urinary retention * Recent admission labs (08/22-09/03) * ANCA screen is negative * Proteinase 3 <1.0 * myeloperoxidase <1.0 * b DGlucan negative * indeterminate quantiferon * Aspergillus flavus negative * Aspergillus fumigatus negative * Aspergillus niger negative * HIV negative * influenza negative * Hepatitis negative * Rheumatoid factor IgM elevated at 80 * Blood culture (08/22/18): no growth after 5 days X2 * Myobacterial culture (08/23/18): negative for AFB. prelim * Myobacterial culture (08/25/18): negative for AFB. prelim * Myobacterial culture (08/28/18): negative for AFB. prelim * Mycobacterium complex PCR negative * hisplasmosis AB negative, MARY level normal * continue chest physiotherapy, Duonebs q6, singulair 10 mg PO QHS, Breo ellipta once daily, Mucinex 600 mg PO BID, O2 via 100% NRB * Procal normal * No need for IV abx * ABG pending * Will discuss with son at bedside in AM for possible open lung biopsy vs CT guided FNA biospy vs bronchoscopy * CT surgery consulted Heart Failure with Reduced Ejection Fraction, chronic * Echocardiogram (08/27/18) left ventricular systolic function is severely impaired. ejection fraction is 25-30%. atrial septum aneurysmal. possible asd? no aortic regurgitation is present. mitral regurgitation is mild to moderate. mild tricuspid regurgitation. mild pulmonary hypertension. * Cardiac cath showed nonischemic cardiomyopathy. Dr. Pedraza, cardiology, evaluated the pt on last admission and recommended medical HFrEF management rather than lifevest/aicd placement. * Continue Carvedilol 3.125 mg PO BID * Losartan 25 mg PO on hold, Aldactone 12.5 mg PO once daily on hold * Lasix 20mg po daily Leukocytosis * Influenza negative * Possibly related to bronchiectasis as neutrophils significantly elevated * No need for IV abx as chest CT and prolactin do not correlate with infectious etiology Cachexia * 30lb weight loss in 2 months * [employer] [place] [employer] referral PPx - DVT ppx: Heparin 5000u SC q12, SCDs - GI: Protonix 20mg po daily - Diet: HHD - Aspiration precautions due to increased mucus production Pt is full code. She reports that her sons will make decisions for her in case she is incapacitated. Case d.w Dr. Adams PGY-1 [place] <Cristian Adams - Last Filed: 09/11/18 18:12> Objective - Vital Signs/Intake and Output Vital Signs (last 24 hours): Temp Pulse Resp BP Pulse Ox 98.0 F 120 H 18 120/70 95 09/11/18 15:00 09/11/18 15:00 09/11/18 15:00 09/11/18 15:33 09/11/18 15:00 Intake and Output: 09/11/18 09/11/18 06:59 18:59 Intake Total 1050 300 Balance 1050 300 - Medications Medications: Current Medications Albuterol/Ipratropium (Duoneb 3 Mg/0.5 Mg (3 Ml) Ud) 3 ml INH RQ6 [facility] Last Admin: 09/11/18 13:42 Dose: 3 ml Carvedilol (Coreg) 3.125 mg PO BID [facility] Last Admin: 09/11/18 17:40 Dose: 3.125 mg Fluticasone/Vilanterol (Breo Ellipta 100-25 Mcg Inh) 1 puff INH RQD [facility] Last Admin: 09/11/18 10:09 Dose: Not Given Furosemide (Lasix) 20 mg PO DAILY [facility] Last Admin: 09/11/18 15:33 Dose: 20 mg Guaifenesin (Mucinex La) 600 mg PO BID [facility] Last Admin: 09/11/18 17:39 Dose: 600 mg Heparin Sodium (Porcine) (Heparin) 5,000 units SC Q12 [facility] Last Admin: 09/11/18 10:08 Dose: Not Given Piperacillin Sod/Tazobactam (Sod 3.375 gm/ Sodium Chloride) 100 mls @ 200 mls/hr IVPB Q6H [facility]; Protocol Vancomycin HCl 1 gm/ Sodium (Chloride) 250 mls @ 166.7 mls/hr IVPB Q24H [facility]; Protocol Montelukast Sodium (Singulair) 10 mg PO HS [facility] Last Admin: 09/10/18 21:40 Dose: 10 mg Pantoprazole Sodium (Protonix Ec Tab) 20 mg PO DAILY [facility] Last Admin: 09/11/18 10:08 Dose: 20 mg Pneumococcal Polyvalent Vaccine (Pneumovax 23 Vaccine) 0.5 ml IM .ONCE ONE Stop: 09/14/18 10:01 - Labs Labs: 09/11/18 08:55 09/11/18 08:55 Attending/Attestation - Attestation I have personally seen and examined this patient.: Yes I have fully participated in the care of the patient.: Yes I have reviewed all pertinent clinical information, including history, physical exam and plan: Yes Notes (Text): 09/11/18 18:09 Patient was seen together with resident Dr. Epps. Care of this patient was gone over in detail with Dr. Epps. I met with Son Pavel after our exam with patient and went over diagnosis with him. Medicine Team please give Gabino Zhao a call on morning 09/12/18 at [phone] and ask when he will be coming in and plan meeting with him to discuss the next best course of action which would be CT guided Lung Bx for definitive diagnosis. Patient very resistant to any time of testing or treatment without first discussing with Gabino Zhao. If patient agrees then consult Interventional Radi ology for Wednesday09/13/18. Cristian Adams D.O.
[2018-09-11 17:43] LABS: ABG ALLEN TEST PO; ARTERIAL BLOOD GAS HCO3 27.2 mmol/L (21-28); ARTERIAL BLOOD GAS O2 SAT 97.6 % (95-98); ARTERIAL BLOOD GAS PCO2 39 mm/Hg (35-45); ARTERIAL BLOOD GAS PH 7.45 (7.35-7.45); ARTERIAL BLOOD GAS PO2 75 mm/Hg (80-100); ARTERIAL BLOOD GAS TCO2 28.3 mmol/L (22-28)
[2018-09-11] MEDS: Piperacillin/Tazobact 3.375 GM in Sodium Chloride 100 ML IVPB SCH ×2 (18:39→23:45)
[2018-09-11 20:23] LABS: BLOOD UREA NITROGEN 13 mg/dL (7-17); CALCIUM 8.9 mg/dl (8.6-10.4); GFR NON-AFRICAN AMERICAN > 60
[2018-09-12] MEDS: Piperacillin/Tazobact 3.375 GM in Sodium Chloride 100 ML IVPB SCH ×4 (05:49→23:52)
[2018-09-12] MEDS: Albuterol-Ipratrop 3 mg / 0.5 (3 ml) UD INH SCH ×4 (07:59→20:21)
[2018-09-12] MEDS: Fluticasone-Vilanterol 100/25mcg Diskus INH SCH (08:01)
[2018-09-12 08:57] LABS: BASO # 0.1 K/uL (0.0-0.2); BASO % 0.3 % (0.0-2.0); EOS # 0.1 K/uL (0.0-0.7); EOS % 0.3 % (0.0-4.0); HEMOGLOBIN 11.5 g/dL (11.0-16.0); LYMPH # 0.6 K/uL (1.0-4.3); LYMPH % 2.9 % (20.0-40.0); MEAN CELL VOLUME 78.8 fL (81.0-99.0); MEAN CORPUSCULAR HEMOGLOBIN 25.8 pg (27.0-31.0); MEAN CORPUSCULAR HGB CONC 32.8 g/dL (33.0-37.0); MONO # 0.7 K/uL (0.0-0.8); MONO % 3.4 % (0.0-10.0); NEUT # 19.9 K/uL (1.8-7.0); NEUT % 93.1 % (50.0-75.0); PLATELET COUNT 238 K/uL (130-400); RBC 4.44 Mil/uL (3.80-5.20); RED CELL DISTRIBUTION WIDTH 16.7 % (11.5-14.5); WHITE BLOOD COUNT 21.4 K/uL (4.8-10.8)
[2018-09-12 09:30] LABS: ANISOCYTOSIS SLIGHT; HYPOCHROMIC SLIGHT; LYMPHOCYTE 6 % (20-40); MONOCYTE 6 % (0-10); NEUTROPHIL 88 % (50-75); PLATELET ESTIMATE NORMAL (NORMAL); POIKILOCYTOSIS SLIGHT; TOTAL CELLS COUNTED 100
[2018-09-12 09:31] LABS: LARGE PLATELETS PRESENT; TARGET CELLS SLIGHT
[2018-09-12 09:35] LABS: ALB/GLOB RATIO 1.1 (1.0-2.1); ALBUMIN 3.4 g/dL (3.5-5.0); ALT/SGPT 24 U/L (9-52); AST/SGOT 63 U/L (14-36); BLOOD UREA NITROGEN 14 mg/dL (7-17); CALCIUM 9.6 mg/dl (8.6-10.4); GFR NON-AFRICAN AMERICAN > 60
[2018-09-12] MEDS ORDERED: MethylPREDNISolone 40 mg Vial IVP STA (09:43)
[2018-09-12] MEDS: guaiFENesin 600 mg ER Tab PO SCH ×2 (09:59→18:37)
[2018-09-12] MEDS: Pantoprazole 20 mg EC Tab PO SCH (09:59)
[2018-09-12] MEDS: MethylPREDNISolone 40 mg Vial IVP SCH ×2 (10:00→18:36)
--- NOTE | 2018-09-12 12:02 | CP.PCM.PN ---
Subjective - Date & Time of Evaluation Date of Evaluation: 09/12/18 Time of Evaluation: 11:59 - Subjective Subjective: Medicine Progress Note for Dr. Bashir's service S/E at bedside. Reports mild sob. On high flow oxygen. Denies f/c, cp, n/v, constipation or diarrhea. Objective - Vital Signs/Intake and Output Vital Signs (last 24 hours): Temp Pulse Resp BP Pulse Ox 97.6 F 78 24 135/78 97 09/12/18 07:00 09/12/18 09:20 09/12/18 09:16 09/12/18 09:59 09/12/18 09:20 Intake and Output: 09/12/18 09/12/18 06:59 18:59 Intake Total 400 Balance 400 - Medications Medications: Current Medications Acetylcysteine (Acetylcysteine 20%) 4 ml INH Q4H [facility] Albuterol/Ipratropium (Duoneb 3 Mg/0.5 Mg (3 Ml) Ud) 3 ml INH RQ4 [facility] Carvedilol (Coreg) 3.125 mg PO BID [facility] Last Admin: 09/12/18 10:00 Dose: 3.125 mg Fluticasone/Vilanterol (Breo Ellipta 100-25 Mcg Inh) 1 puff INH RQD [facility] Last Admin: 09/12/18 08:01 Dose: 1 puff Furosemide (Lasix) 20 mg PO DAILY [facility] Last Admin: 09/12/18 09:59 Dose: 20 mg Guaifenesin (Mucinex La) 600 mg PO BID [facility] Last Admin: 09/12/18 09:59 Dose: 600 mg Heparin Sodium (Porcine) (Heparin) 5,000 units SC Q12 [facility] Last Admin: 09/12/18 09:52 Dose: Not Given Piperacillin Sod/Tazobactam (Sod 3.375 gm/ Sodium Chloride) 100 mls @ 200 mls/hr IVPB Q6H [facility]; Protocol Last Admin: 09/12/18 11:37 Dose: 200 mls/hr Vancomycin HCl 1 gm/ Sodium (Chloride) 250 mls @ 166.7 mls/hr IVPB Q24H [facility]; Protocol Last Admin: 09/11/18 18:40 Dose: 166.7 mls/hr Methylprednisolone (Solu-Medrol) 40 mg IVP Q8H [facility] Last Admin: 09/12/18 10:00 Dose: Not Given Montelukast Sodium (Singulair) 10 mg PO HS [facility] Last Admin: 09/11/18 21:11 Dose: 10 mg Pantoprazole Sodium (Protonix Ec Tab) 20 mg PO DAILY [facility] Last Admin: 09/12/18 09:59 Dose: 20 mg Pneumococcal Polyvalent Vaccine (Pneumovax 23 Vaccine) 0.5 ml IM .ONCE ONE Stop: 09/14/18 10:01 - Labs Labs: 09/12/18 08:50 09/12/18 08:50 - Constitutional Appears: Non-toxic, No Acute Distress, Cachectic - Head Exam Head Exam: NORMAL INSPECTION, NORMOCEPHALIC - Eye Exam Eye Exam: EOMI, Normal appearance. absent: Nystagmus, Scleral icterus - ENT Exam ENT Exam: Mucous Membranes Dry - Respiratory Exam Respiratory Exam: Decreased Breath Sounds, Rales, Rhonchi, NORMAL BREATHING PATTERN. absent: Respiratory Distress - Cardiovascular Exam Cardiovascular Exam: REGULAR RHYTHM, +S1, +S2 - GI/Abdominal Exam GI & Abdominal Exam: Soft, Normal Bowel Sounds - Extremities Exam Extremities Exam: Normal Inspection - Neurological Exam Neurological Exam: Alert, Awake, Oriented x3 - Psychiatric Exam Psychiatric exam: Normal Affect, Normal Mood - Skin Skin Exam: Dry, Intact, Normal Color Assessment and Plan - Assessment and Plan (Free Text) Assessment: This is a 68 year old female with PMH of newly diagnosed HFrEF, bronchiectasis who presents for epigastric abdominal pain for the past [address] with IV contrast done in the ED shows small pneumothorax. Pulm consulted for bronchiectasis and pneumothorax. Plan: A: Bronchiectasis Pneumothorax Hx of HFpEF P: IV vanc q24 IV zosyn 3.375 q6 Duoneb q4h, BreoEllipta, IV solumedrol q8h Mucinex bid Lasix 20 daily Further medical management as per primary Discussion with family for diagnosis of cause of bronchietasis Concern for IPF continue high flow; as ABG previously showed hypoxia
[2018-09-12] MEDS: Acetylcysteine 20% Inhal Soln (4ml) INH SCH ×2 (13:29→20:21)
--- NOTE | 2018-09-12 13:42 | RAD ---
Date of service: 09/12/2018 HISTORY: Shortness of breath common pneumothorax. COMPARISON: September 11, 2018. Two view chest. September 11, 2018. CT thorax. Summary of findings on the comparison examination: Interval appearance of small 5-10 percent right-sided pneumothorax since the previous exam dated 08/22/2018. FINDINGS: LUNGS: Stable multifocal airspace disease bilaterally. PLEURA: Resolution common none visualization of previously identified small right pneumothorax. CARDIOVASCULAR: No atherosclerotic calcification present Normal. OSSEOUS STRUCTURES: No significant abnormalities. VISUALIZED UPPER ABDOMEN: Normal. OTHER FINDINGS: None. IMPRESSION: Nonvisualization previously identified pneumothorax on the right. Stable, extensive bilateral multifocal infiltrates.
--- NOTE | 2018-09-12 16:53 | CP.PCM.PN ---
<Eva Abarca P - Last Filed: 09/12/18 21:04> Subjective - Date & Time of Evaluation Date of Evaluation: 09/12/18 Time of Evaluation: 07:00 - Subjective Subjective: Progress note for Dr. Hill. Patient seen and examined at bedside. Satting 93 SpO2 on NRB mask and complained of SOB. Patient was switched to Hi flow O2- O2 sat improved to 95-96 range. Patient states she feels much better with the Hi flow O2. Denies chest pain, nausea, vomiting, diaphoresis, dysuria, urinary frequency, hematuria. Objective - Vital Signs/Intake and Output Vital Signs (last 24 hours): Temp Pulse Resp BP Pulse Ox 97.8 F 115 H 20 115/76 96 09/12/18 15:00 09/12/18 15:00 09/12/18 15:00 09/12/18 15:00 09/12/18 15:00 Intake and Output: 09/12/18 09/12/18 06:59 18:59 Intake Total 400 Balance 400 - Medications Medications: Current Medications Acetylcysteine (Acetylcysteine 20%) 4 ml INH Q4H [facility] Last Admin: 09/12/18 13:29 Dose: 4 ml Albuterol/Ipratropium (Duoneb 3 Mg/0.5 Mg (3 Ml) Ud) 3 ml INH RQ4 [facility] Last Admin: 09/12/18 16:07 Dose: 3 ml Carvedilol (Coreg) 3.125 mg PO BID [facility] Last Admin: 09/12/18 10:00 Dose: 3.125 mg Fluticasone/Vilanterol (Breo Ellipta 100-25 Mcg Inh) 1 puff INH RQD [facility] Last Admin: 09/12/18 08:01 Dose: 1 puff Furosemide (Lasix) 20 mg PO DAILY [facility] Last Admin: 09/12/18 09:59 Dose: 20 mg Guaifenesin (Mucinex La) 600 mg PO BID [facility] Last Admin: 09/12/18 09:59 Dose: 600 mg Heparin Sodium (Porcine) (Heparin) 5,000 units SC Q12 [facility] Last Admin: 09/12/18 09:52 Dose: Not Given Piperacillin Sod/Tazobactam (Sod 3.375 gm/ Sodium Chloride) 100 mls @ 200 mls/hr IVPB Q6H [facility]; Protocol Last Admin: 09/12/18 11:37 Dose: 200 mls/hr Vancomycin HCl 1 gm/ Sodium (Chloride) 250 mls @ 166.7 mls/hr IVPB Q24H [facility]; Protocol Last Admin: 09/11/18 18:40 Dose: 166.7 mls/hr Methylprednisolone (Solu-Medrol) 40 mg IVP Q8H [facility] Last Admin: 09/12/18 10:00 Dose: Not Given Montelukast Sodium (Singulair) 10 mg PO HS [facility] Last Admin: 09/11/18 21:11 Dose: 10 mg Pantoprazole Sodium (Protonix Ec Tab) 20 mg PO DAILY [facility] Last Admin: 09/12/18 09:59 Dose: 20 mg Pneumococcal Polyvalent Vaccine (Pneumovax 23 Vaccine) 0.5 ml IM .ONCE ONE Stop: 09/14/18 10:01 - Labs Labs: 09/12/18 08:50 09/12/18 08:50 - Constitutional Appears: Cachectic - Head Exam Head Exam: ATRAUMATIC, NORMOCEPHALIC - Eye Exam Eye Exam: EOMI, Normal appearance, PERRL - ENT Exam ENT Exam: Mucous Membranes Moist - Neck Exam Neck Exam: Full ROM, Normal Inspection - Respiratory Exam Respiratory Exam: Accessory Muscle Use (supraclavicular), Decreased Breath Sounds (LLL), Rhonchi - Cardiovascular Exam Cardiovascular Exam: Tachycardia, +S1, +S2 - GI/Abdominal Exam GI & Abdominal Exam: Soft, Normal Bowel Sounds. absent: Distended, Firm, Tenderness - Extremities Exam Extremities Exam: Full ROM, Normal Inspection. absent: Pedal Edema, Tenderness - Neurological Exam Neurological Exam: Alert, Awake, Oriented x3 Neuro motor strength exam: Left Upper Extremity: 5, Right Upper Extremity: 5, Left Lower Extremity: 5, Right Lower Extremity: 5 - Psychiatric Exam Psychiatric exam: Normal Affect, Normal Mood - Skin Skin Exam: Dry, Intact, Normal Color, Warm Assessment and Plan - Assessment and Plan (Free Text) Assessment: This is a 68 year old female with PMH of newly diagnosed HFrEF, bronchiectasis who presents for epigastric abdominal pain for the past [address] with IV contrast done in the ED shows small pneumothorax. Sodium noted to be 119. Hyponatremia * Likely hypovolemic hyponatremia * Nephro Consulted: Dr. Lindsay - recs appreciated * Resolving; Sodium uptrending; Goal of 6-8 in 24hrs from 09/10 8AM to 09/11 8AM * Na 129 on 09/12/18 Pneumothorax, acute * Abdominal CT shows minimal right basilar pnuemothorax * Pulmonology, Dr. Bashir, consulted * on Hi flow O2 * CXR 4-7: suspicious for righted small 10 percent pneumothorax * CT chest -7: interval apperance of small 5-10% right sided pneumothorax; 2 cavitary formation of left lower lung possible cystic bronchiectasis, small left pleural effusion * CXR 09/12: pneumothorax improved * ABG 09/11/18: CO2 39, O2 75, HCO3 27.7, pH 7.45 Abdominal pain, resolved * Likely due to potassium chloride medications pt was discharged with * Abdominal CT with IV contrast prelim reading shows ileus vs developing enteritis; f/u official reading * Leukocytosis likely due to steroid treatment, pt afebrile * Protonix 20 mg PO daily * Given Cipro 400 mg IVPB x 1, Flagyl 500 mg IVPB x 1, Pepcid 20 mg PO, Maalox 30 mL PO in the ED Cystic Bronchiectasis, chronic Bilateral Pneumonia, L pleural effusion * Pulmonology, Dr. Bashir, consulted * CT chest (08/22/18): areas of dense consolidation/atelectasis in the left lung base; progressed 03/01/16. Extensive cystic changes seen throughout the left lung and less so the right upper lobe possibly representing cystic b ronchiectasis. Left sided effusion possibly with some loculated components. mucous plugging changes or compressive effects on the proximal branches of the left upper and lower lobe of bronchi. mild fatty hepatic infiltration. gastric wall thickening in part of incomplete distension. markedly distended urinary bladder, rule out urinary retention * Recent admission labs (08/22-09/03) * ANCA screen is negative * Proteinase 3 <1.0 * myeloperoxidase <1.0 * b DGlucan negative * indeterminate quantiferon * Aspergillus flavus negative * Aspergillus fumigatus negative * Aspergillus niger negative * HIV negative * influenza negative * Hepatitis negative * Rheumatoid factor IgM elevated at 80 * Blood culture (08/22/18): no growth after 5 days X2 * Myobacterial culture (08/23/18): negative for AFB. prelim * Myobacterial culture (08/25/18): negative for AFB. prelim * Myobacterial culture (08/28/18): negative for AFB. prelim * Mycobacterium complex PCR negative * hisplasmosis AB negative, MARY level normal * continue chest physiotherapy, Duonebs q4, singulair 10 mg PO QHS, Breo ellipta once daily, Mucinex 600 mg PO BID, O2 High flow oxygen * Added solumedrol 40mg IV Q8H * Procal normal * No need for IV abx * ABG pending * Will discuss with son at bedside in AM for possible open lung biopsy vs CT guided FNA biospy vs bronchoscopy * CT surgery consult pending family decision regarding open lung biopsy/FNA/b ronchoscopy Heart Failure with Reduced Ejection Fraction, chronic * Echocardiogram (08/27/18) left ventricular systolic function is severely impaired. ejection fraction is 25-30%. atrial septum aneurysmal. possible asd? no aortic regurgitation is present. mitral regurgitation is mild to moderate. mild tricuspid regurgitation. mild pulmonary hypertension. * Cardiac cath showed nonischemic cardiomyopathy. Dr. Pedraza, cardiology, evaluated the pt on last admission and recommended medical HFrEF management rather than lifevest/aicd placement. * Continue Carvedilol 3.125 mg PO BID * Losartan 25 mg PO on hold, Aldactone 12.5 mg PO once daily on hold * Lasix 20mg po daily Leukocytosis * Influenza negative * Possibly related to bronchiectasis as neutrophils significantly elevated * No need for IV abx as chest CT and prolactin do not correlate with infectious etiology Cachexia * 30lb weight loss in 2 months * Certified Medical Dosimetrist referral * Ensure Compact TID (660 kcals, 27 gm protein) PPx - DVT ppx: Heparin 5000u SC q12, SCDs - GI: Protonix 20mg po daily - Diet: HHD - Aspiration precautions due to increased mucus production Pt is full code, understands that intubation is a possibility in case of emergency. She reports that her sons will make decisions for her in case she is incapacitated. Patient on Hi flow O2, Duonebs increased to Q4, Solu-medrol 40mg IV Q8H added due to respiratory distress. Patient improved today with these changes. Reviewed various options of obtaining lung bx with patient and son (open lung bx vs VATS vs. IR FNA vs. Bronchoscopy with Pulm). Patient is apprehensive about these options. Son states he will have to talk to the family and patient and will need time to make a decision. f/u repeat urine cx. Case discussed with Dr. Hill. Eva Abarca, PGY <Nikki Hill V - Last Filed: 09/13/18 23:41> Objective - Vital Signs/Intake and Output Vital Signs (last 24 hours): Temp Pulse Resp BP Pulse Ox 97.3 F L 86 20 114/73 97 09/13/18 16:00 09/13/18 21:33 09/13/18 19:36 09/13/18 16:00 09/13/18 16:00 Intake and Output: 09/13/18 09/14/18 18:59 06:59 Intake Total 450 Balance 450 - Medications Medications: Current Medications Acetylcysteine (Acetylcysteine 20%) 4 ml INH Q4H [facility] Last Admin: 09/13/18 16:51 Dose: 4 ml Albuterol/Ipratropium (Duoneb 3 Mg/0.5 Mg (3 Ml) Ud) 3 ml INH RQ4 [facility] Last Admin: 09/13/18 19:36 Dose: 3 ml Carvedilol (Coreg) 3.125 mg PO BID [facility] Last Admin: 09/13/18 17:31 Dose: 3.125 mg Fluticasone/Vilanterol (Breo Ellipta 100-25 Mcg Inh) 1 puff INH RQD [facility] Last Admin: 09/12/18 08:01 Dose: 1 puff Furosemide (Lasix) 20 mg PO DAILY [facility] Last Admin: 09/13/18 11:28 Dose: 20 mg Guaifenesin (Mucinex La) 600 mg PO BID [facility] Last Admin: 09/13/18 17:31 Dose: 600 mg Piperacillin Sod/Tazobactam (Sod 3.375 gm/ Sodium Chloride) 100 mls @ 200 mls/hr IVPB Q6H [facility]; Protocol Last Admin: 09/13/18 17:31 Dose: 200 mls/hr Vancomycin HCl 1 gm/ Sodium (Chloride) 250 mls @ 166.7 mls/hr IVPB Q24H [facility]; Protocol Last Admin: 09/13/18 19:17 Dose: 166.7 mls/hr Methylprednisolone (Solu-Medrol) 40 mg IVP Q8H [facility] Last Admin: 09/13/18 17:30 Dose: 40 mg Montelukast Sodium (Singulair) 10 mg PO HS [facility] Last Admin: 09/13/18 21:12 Dose: 10 mg Pantoprazole Sodium (Protonix Ec Tab) 20 mg PO DAILY [facility] Last Admin: 09/13/18 11:27 Dose: 20 mg Pneumococcal Polyvalent Vaccine (Pneumovax 23 Vaccine) 0.5 ml IM .ONCE ONE Stop: 09/14/18 10:01 - Labs Labs: 09/13/18 07:07 09/13/18 07:07 Attending/Attestation - Attestation I have personally seen and examined this patient.: Yes I have fully participated in the care of the patient.: Yes I have reviewed all pertinent clinical information, including history, physical exam and plan: Yes Notes (Text): This is late computer entry for 09/12/18. Patient seen, examined and case discussed with day-time resident. Familiar with patient from last admission; patient with history of bronchiectasis and nonischemic cardiomyopathy comes following dyspnea and shortn ess of breathe. Patient's abdominal pain noted on admission has resolved; belly benign on my exam. Patient noted tachypnea in the morning; We started her on Solumedrol, added mucomyst, and IV abx to cover for healthcare associated pneumonia. Patient reports she is full code; and if emergently will allow for breathing machine. Noted on CT chest she has a small pneumothorax; follow-up chest xray shows the pneumothorax has resolved following nonway breather. Resident has spoken with patient's son regarding options available for the patient in terms how how aggressive do we want to be bronchiectasis in terms of bronchoscopy, lung biopsy etc. Bronchoscopy not performed last admission given anesthesia risk and patient was ruled out for tuberculosis given negative AFBX3. Patient's procalcitonin elevated compared to last admission. Infectious disease consult for multifocal pneumonia. Assessment/plan Hyponatremia * Likely hypovolemic hyponatremia * Nephro Consulted: Dr. Lindsay - king appreciated * Resolving; Sodium uptrending; Goal of 6-8 in 24hrs from 4/6 8AM to 4/7 8AM * Na 129 on 09/12/18 Pneumothorax, acute * Abdominal CT shows minimal right basilar pnuemothorax * Pulmonology, Dr. Bashir, consulted * on Hi flow O2 * CXR -: suspicious for righted small 10 percent pneumothorax * CT chest -: interval appearance of small 5-10% right sided pneumothorax; 2 cavitary formation of left lower lung possible cystic bronchiectasis, small left pleural effusion * CXR 09/12: pneumothorax improved s/p nonway breather * ABG 09/11/18: CO2 39, O2 75, HCO3 27.7, pH 7.45 Abdominal pain, resolved * Likely due to potassium chloride medications pt was discharged with * Abdominal CT with IV contrast prelim reading shows ileus vs developing enteritis; f/u official reading * Leukocytosis likely due to steroid treatment, pt afebrile * Protonix 20 mg PO daily * Given Cipro 400 mg IVPB x 1, Flagyl 500 mg IVPB x 1, Pepcid 20 mg PO, Maalox 30 mL PO in the ED Cystic Bronchiectasis, chronic Bilateral Pneumonia, L pleural effusion * Pulmonology, Dr. Bashir, consulted * CT chest (08/22/18): areas of dense consolidation/atelectasis in the left lung base; progressed 03/01/16. Extensive cystic changes seen throughout the left l robles and less so the right upper lobe possibly representing cystic bronchiectasis. Left sided effusion possibly with some loculated components. mucous plugging changes or compressive effects on the proximal branches of the left upper and lower lobe of bronchi. mild fatty hepatic infiltration. gastric wall thickening in part of incomplete distension. markedly distended urinary bladder, rule out urinary retention * Recent admission labs (08/22-09/03) * ANCA screen is negative * Proteinase 3 <1.0 * myeloperoxidase <1.0 * b DGlucan negative * indeterminate quantiferon * Aspergillus flavus negative * Aspergillus fumigatus negative * Aspergillus niger negative * HIV negative * influenza negative * Hepatitis negative * Rheumatoid factor IgM elevated at 80 * Blood culture (08/22/18): no growth after 5 days X2 * Myobacterial culture (08/23/18): negative for AFB. prelim * Myobacterial culture (08/25/18): negative for AFB. prelim * Myobacterial culture (08/28/18): negative for AFB. prelim * Mycobacterium complex PCR negative * hisplasmosis AB negative, MARY level normal * continue chest physiotherapy, Duonebs q4, singulair 10 mg PO QHS, Breo ellipta once daily, Mucinex 600 mg PO BID, O2 High flow oxygen * Added solumedrol 40mg IV Q8H * elevated procalcitonin Heart Failure with Reduced Ejection Fraction, chronic * Echocardiogram (08/27/18) left ventricular systolic function is severely impaired. ejection fraction is 25-30%. atrial septum aneurysmal. possible asd? no aortic regurgitation is present. mitral regurgitation is mild to moderate. mild tricuspid regurgitation. mild pulmonary hypertension. * Cardiac cath showed nonischemic cardiomyopathy. Dr. Pedraza, cardiology, ev aluated the pt on last admission and recommended medical HFrEF management rather than lifevest/aicd placement. * Continue Carvedilol 3.125 mg PO BID * Losartan 25 mg PO on hold, Aldactone 12.5 mg PO once daily on hold * Lasix 20mg po daily Leukocytosis * Influenza negative * Possibly related to bronchiectasis as neutrophils significantly elevated * Patient is on IV zosyn and IV vancomycin given pneumonia noted on CT scan; started on 09/11/18 * elevated procalcitonin * pending sputum culture Cachexia * 30lb weight loss in 2 months * Certified Medical Dosimetrist referral * Ensure Compact TID (660 kcals, 27 gm protein) PPx * DVT ppx: Heparin 5000u SC x40--[id number] refusing, SCDs * GI: Protonix 20mg po daily * Diet: HHD * Aspiration precautions due to increased mucus production * Full code.
--- NOTE | 2018-09-12 18:59 | CP.PCM.PN ---
Subjective - Date & Time of Evaluation Date of Evaluation: 09/12/18 Time of Evaluation: 13:00 - Subjective Subjective: Patient needing high flow O2 today, feels better with it; Objective - Vital Signs/Intake and Output Vital Signs (last 24 hours): Temp Pulse Resp BP Pulse Ox 97.8 F 12 L 20 115/76 96 09/12/18 15:00 09/12/18 15:30 09/12/18 15:00 09/12/18 15:00 09/12/18 15:00 Intake and Output: 09/12/18 09/12/18 06:59 18:59 Intake Total 400 Balance 400 - Medications Medications: Current Medications Acetylcysteine (Acetylcysteine 20%) 4 ml INH Q4H [facility] Last Admin: 09/12/18 13:29 Dose: 4 ml Albuterol/Ipratropium (Duoneb 3 Mg/0.5 Mg (3 Ml) Ud) 3 ml INH RQ4 [facility] Last Admin: 09/12/18 16:07 Dose: 3 ml Carvedilol (Coreg) 3.125 mg PO BID [facility] Last Admin: 09/12/18 10:00 Dose: 3.125 mg Fluticasone/Vilanterol (Breo Ellipta 100-25 Mcg Inh) 1 puff INH RQD [facility] Last Admin: 09/12/18 08:01 Dose: 1 puff Furosemide (Lasix) 20 mg PO DAILY [facility] Last Admin: 09/12/18 09:59 Dose: 20 mg Guaifenesin (Mucinex La) 600 mg PO BID [facility] Last Admin: 09/12/18 18:37 Dose: 600 mg Heparin Sodium (Porcine) (Heparin) 5,000 units SC Q12 [facility] Last Admin: 09/12/18 09:52 Dose: Not Given Piperacillin Sod/Tazobactam (Sod 3.375 gm/ Sodium Chloride) 100 mls @ 200 mls/hr IVPB Q6H [facility]; Protocol Last Admin: 09/12/18 18:36 Dose: 200 mls/hr Vancomycin HCl 1 gm/ Sodium (Chloride) 250 mls @ 166.7 mls/hr IVPB Q24H [facility]; Protocol Last Admin: 09/12/18 18:36 Dose: 166.7 mls/hr Methylprednisolone (Solu-Medrol) 40 mg IVP Q8H [facility] Last Admin: 09/12/18 18:36 Dose: 40 mg Montelukast Sodium (Singulair) 10 mg PO HS [facility] Last Admin: 09/11/18 21:11 Dose: 10 mg Pantoprazole Sodium (Protonix Ec Tab) 20 mg PO DAILY [facility] Last Admin: 09/12/18 09:59 Dose: 20 mg Pneumococcal Polyvalent Vaccine (Pneumovax 23 Vaccine) 0.5 ml IM .ONCE ONE Stop: 09/14/18 10:01 - Labs Labs: 09/12/18 08:50 09/12/18 08:50 - Constitutional Appears: Non-toxic, No Acute Distress - Eye Exam Eye Exam: Normal appearance - Respiratory Exam Respiratory Exam: absent: Respiratory Distress Additional comments: tachypneic - Cardiovascular Exam Cardiovascular Exam: RRR, +S1, +S2 - GI/Abdominal Exam GI & Abdominal Exam: Soft. absent: Distended, Tenderness - Extremities Exam Additional comments: no leg edema; - Neurological Exam Neurological Exam: Alert, Awake - Psychiatric Exam Psychiatric exam: Normal Mood. absent: Agitated - Skin Skin Exam: Warm. absent: Cyanosis Assessment and Plan (1) Hyponatremia Assessment & Plan: Again worsened after improving with volume replenishment (stopped yesterday); also started on low dose PO lasix; no repeat urine osm available; cannot rule out possibility of SIADH component; -Nursing staff and patient instructed to keep strict PO fluid restriction <1L per day; -Need repeat urine osm; Status: Acute (2) Heart failure with reduced ejection fraction Assessment & Plan: Overall appears euvolemic despite worsening resp status which is more likely due to bronchiectasis; started on lasix 20 mg PO daily, may further worsen hyponatremia if patient doesn't comply with fluid restriction; continue to hold aldactone and losartan until serum Na stabilizes; Status: Chronic
[2018-09-13] MEDS: MethylPREDNISolone 40 mg Vial IVP SCH ×3 (01:00→17:30)
[2018-09-13] MEDS: Albuterol-Ipratrop 3 mg / 0.5 (3 ml) UD INH SCH ×6 (01:22→19:36)
[2018-09-13] MEDS: Acetylcysteine 20% Inhal Soln (4ml) INH SCH ×4 (01:22→16:51)
[2018-09-13] MEDS: Piperacillin/Tazobact 3.375 GM in Sodium Chloride 100 ML IVPB SCH ×3 (05:30→17:31)
[2018-09-13 07:23] LABS: BASO % 0.2 % (0.0-2.0); HEMOGLOBIN 10.6 g/dL (11.0-16.0); LYMPH # 0.3 K/uL (1.0-4.3); LYMPH % 1.3 % (20.0-40.0); MEAN CORPUSCULAR HGB CONC 33.4 g/dL (33.0-37.0); MEAN PLATELET VOLUME 9.7 fL (7.2-11.7); MONO # 0.6 K/uL (0.0-0.8); MONO % 2.8 % (0.0-10.0); NEUT # 21.2 K/uL (1.8-7.0); NEUT % 95.7 % (50.0-75.0); PLATELET COUNT 241 K/uL (130-400); RBC 4.09 Mil/uL (3.80-5.20); RED CELL DISTRIBUTION WIDTH 16.7 % (11.5-14.5); WHITE BLOOD COUNT 22.1 K/uL (4.8-10.8)
[2018-09-13 07:48] LABS: ALBUMIN 3.1 g/dL (3.5-5.0); ALT/SGPT 18 U/L (9-52); AST/SGOT 41 U/L (14-36); BLOOD UREA NITROGEN 19 mg/dL (7-17); CALCIUM 9.8 mg/dl (8.6-10.4); GFR NON-AFRICAN AMERICAN > 60
[2018-09-13 09:01] LABS: ANISOCYTOSIS SLIGHT; BANDS 2 % (0-2); LYMPHOCYTE 3 % (20-40); MONOCYTE 3 % (0-10); NEUTROPHIL 92 % (50-75); PLATELET ESTIMATE NORMAL (NORMAL); POIKILOCYTOSIS SLIGHT; TOTAL CELLS COUNTED 100
[2018-09-13 09:02] LABS: HYPOCHROMIC SLIGHT; TARGET CELLS SLIGHT
--- NOTE | 2018-09-13 10:06 | CP.PCM.PN ---
<Cruz Epps - Last Filed: 09/13/18 14:34> Subjective - Date & Time of Evaluation Date of Evaluation: 09/13/18 Time of Evaluation: 10:05 - Subjective Subjective: Pulmonary Progress Note for Dr. Bashir's service Patient seen and examined at bedside. Patient reports SOB when not on high flow oxygen. She states SOB is improving from yesterday. Pt. does not complain of chest pain, fever, chills, N/V/D. She admits to a decrease appetite. Objective - Vital Signs/Intake and Output Vital Signs (last 24 hours): Temp Pulse Resp BP Pulse Ox 98.0 F 99 H 20 120/82 100 09/13/18 08:56 09/13/18 08:56 09/13/18 08:56 09/13/18 08:56 09/13/18 08:56 - Medications Medications: Current Medications Acetylcysteine (Acetylcysteine 20%) 4 ml INH Q4H [facility] Last Admin: 09/13/18 05:12 Dose: Not Given Albuterol/Ipratropium (Duoneb 3 Mg/0.5 Mg (3 Ml) Ud) 3 ml INH RQ4 [facility] Last Admin: 09/13/18 07:51 Dose: 3 ml Carvedilol (Coreg) 3.125 mg PO BID [facility] Last Admin: 09/12/18 18:45 Dose: 3.125 mg Fluticasone/Vilanterol (Breo Ellipta 100-25 Mcg Inh) 1 puff INH RQD [facility] Last Admin: 09/12/18 08:01 Dose: 1 puff Furosemide (Lasix) 20 mg PO DAILY [facility] Last Admin: 09/12/18 09:59 Dose: 20 mg Guaifenesin (Mucinex La) 600 mg PO BID [facility] Last Admin: 09/12/18 18:37 Dose: 600 mg Piperacillin Sod/Tazobactam (Sod 3.375 gm/ Sodium Chloride) 100 mls @ 200 mls/hr IVPB Q6H [facility]; Protocol Last Admin: 09/13/18 05:30 Dose: 200 mls/hr Vancomycin HCl 1 gm/ Sodium (Chloride) 250 mls @ 166.7 mls/hr IVPB Q24H [facility]; Protocol Last Admin: 09/12/18 18:36 Dose: 166.7 mls/hr Methylprednisolone (Solu-Medrol) 40 mg IVP Q8H [facility] Last Admin: 09/13/18 01:00 Dose: 40 mg Montelukast Sodium (Singulair) 10 mg PO HS [facility] Last Admin: 09/12/18 22:10 Dose: 10 mg Pantoprazole Sodium (Protonix Ec Tab) 20 mg PO DAILY [facility] Last Admin: 09/12/18 09:59 Dose: 20 mg Pneumococcal Polyvalent Vaccine (Pneumovax 23 Vaccine) 0.5 ml IM .ONCE ONE Stop: 09/14/18 10:01 - Labs Labs: 09/13/18 07:07 09/13/18 07:07 - Constitutional Appears: Non-toxic, No Acute Distress - Head Exam Head Exam: ATRAUMATIC, NORMOCEPHALIC - Eye Exam Eye Exam: EOMI Pupil Exam: PERRL - ENT Exam ENT Exam: Mucous Membranes Dry - Neck Exam Neck Exam: Full ROM - Respiratory Exam Respiratory Exam: Decreased Breath Sounds, Rales, Rhonchi - Cardiovascular Exam Cardiovascular Exam: RRR, +S1, +S2 - GI/Abdominal Exam GI & Abdominal Exam: Soft, Normal Bowel Sounds - Extremities Exam Extremities Exam: Normal Inspection - Neurological Exam Neurological Exam: Alert, Awake - Skin Skin Exam: Dry, Intact, Normal Color Assessment and Plan - Assessment and Plan (Free Text) Assessment: 68 year old female with a PMH of HFrEF, bronchiectasis who presented for abdominal pain which has since resolved. Abdominal CT showed small pneumothorax. Pulmonary was consulted for bronchiectasis and pneumothorax. Plan: Cystic Bronchiectasis Continue current antibiotic therapy of Vanc/Zosyn Continue duoneb, Breo, singular, Mucinex, and IV steriods Continue high flow oxygen. Continue Lasix 20 mg daily Possible tissue bronchoscope (CT guided vs surgical vs bronch) Concern for tissue biopsy as patient has previous pneumothorax due to destruction of lung parenchyma Etiology remains unknown (IPF concern) Acute pneumothorax CXR 09/12: pneumothorax improved continue high flow O2 Consider ICU transfer if patient continues to deteriorate on high flow <Spenser Bashir - Last Filed: 09/13/18 17:41> Objective - Vital Signs/Intake and Output Vital Signs (last 24 hours): Temp Pulse Resp BP Pulse Ox 97.3 F L 96 H 20 114/73 97 09/13/18 16:00 09/13/18 16:32 09/13/18 16:54 09/13/18 16:00 09/13/18 16:00 - Medications Medications: Current Medications Acetylcysteine (Acetylcysteine 20%) 4 ml INH Q4H [facility] Last Admin: 09/13/18 16:51 Dose: 4 ml Albuterol/Ipratropium (Duoneb 3 Mg/0.5 Mg (3 Ml) Ud) 3 ml INH RQ4 [facility] Last Admin: 09/13/18 16:50 Dose: 3 ml Carvedilol (Coreg) 3.125 mg PO BID [facility] Last Admin: 09/13/18 17:31 Dose: 3.125 mg Fluticasone/Vilanterol (Breo Ellipta 100-25 Mcg Inh) 1 puff INH RQD [facility] Last Admin: 09/12/18 08:01 Dose: 1 puff Furosemide (Lasix) 20 mg PO DAILY [facility] Last Admin: 09/13/18 11:28 Dose: 20 mg Guaifenesin (Mucinex La) 600 mg PO BID [facility] Last Admin: 09/13/18 17:31 Dose: 600 mg Piperacillin Sod/Tazobactam (Sod 3.375 gm/ Sodium Chloride) 100 mls @ 200 mls/hr IVPB Q6H [facility]; Protocol Last Admin: 09/13/18 17:31 Dose: 200 mls/hr Vancomycin HCl 1 gm/ Sodium (Chloride) 250 mls @ 166.7 mls/hr IVPB Q24H [facility]; Protocol Last Admin: 09/12/18 18:36 Dose: 166.7 mls/hr Methylprednisolone (Solu-Medrol) 40 mg IVP Q8H [facility] Last Admin: 09/13/18 17:30 Dose: 40 mg Montelukast Sodium (Singulair) 10 mg PO HS [facility] Last Admin: 09/12/18 22:10 Dose: 10 mg Pantoprazole Sodium (Protonix Ec Tab) 20 mg PO DAILY [facility] Last Admin: 09/13/18 11:27 Dose: 20 mg Pneumococcal Polyvalent Vaccine (Pneumovax 23 Vaccine) 0.5 ml IM .ONCE ONE Stop: 09/14/18 10:01 - Labs Labs: 09/13/18 07:07 09/13/18 07:07 Attending/Attestation - Attestation I have personally seen and examined this patient.: Yes I have fully participated in the care of the patient.: Yes I have reviewed all pertinent clinical information, including history, physical exam and plan: Yes Notes (Text): 09/13/18 17:40 Patient seen and examined CAT scan of the chest reviewed Patient is awake responsive and in no respiratory distress Awaiting for family decision for CT-guided versus bronchoscopy biopsy Patient is high risk for surgery and any invasive procedure Continue antibiotics
[2018-09-13] MEDS: Pantoprazole 20 mg EC Tab PO SCH (11:27)
[2018-09-13] MEDS: guaiFENesin 600 mg ER Tab PO SCH ×2 (11:28→17:31)
--- NOTE | 2018-09-13 12:07 | CP.PCM.CON ---
History of Present Illness - History of Present Illness History of Present Illness: 68 year old female with recently diagnosed bronchiectasis as well as CHF is admitted with bilateral infiltrates and sttarted on IV antibiotics Denies fever, chill, chest pain, sob, n/v/d, hemotochezia, melena, hemoptysis, falls, dizziness, headache, seizure activity, lightheadedness. Pt has chronic productive cough, for which she takes medications. Endorses 30 lb weight loss of the last 2 months. Was discharged from last month Refused bronchoscopy PMH: HFrEF, bronchiectasis PSH: none 600 mg PO BID, Medrol dose pack Allx: see EMR FHx: denies SHx: social etoh (rarely), denies smoking, denies drugs Review of Systems - Constitutional Constitutional: As Per HPI, Anorexia, Lethargy - EENT Eyes: absent: As Per HPI, Blind Spots, Blurred Vision, Change in Vision, Decreased Night Vision, Diplopia, Discharge, Dry Eye, Exophthalmos, Floaters, Irritation, Itchy Eyes, Loss of Peripheral Vision, Pain, Photophobia, Requires Corrective Lenses, Sees Flashes, Spots in Vision, Tunnel Vision, Other Visual Disturbances, Loss of Vision, Other Ears: absent: As Per HPI, Decreased Hearing, Ear Discharge, Ear Pain, Tinnitus, Abnormal Hearing, Disequilibrium, Dizziness, Other Nose/Mouth/Throat: absent: As Per HPI, Epistaxis, Nasal Congestion, Nasal Discharge, Nasal Obstruction, Nasal Trauma, Nose Pain, Post Nasal Drip, Sinus Pain, Sinus Pressure, Bleeding Gums, Change in Voice, Dental Pain, Dry Mouth, Dysphagia, Halitosis, Hoarsness, Lip Swelling, Mouth Lesions, Mouth Pain, Odynophagia, Sore Throat, Throat Swelling, Tongue Swelling, Facial Pain, Neck Pain, Neck Mass, Other - Breasts Breasts: absent: As Per HPI, Change in Shape, Mass, Pain, Nipple Discharge, Nipple Inversion, Skin Changes, Swelling, Other - Cardiovascular Cardiovascular: As Per HPI - Respiratory Respiratory: As Per HPI, Cough, Dyspnea. absent: Hemoptysis - Gastrointestinal Gastrointestinal: absent: As Per HPI, Abdominal Pain, Belching, Bloating, Change in Bowel Habits, Change in Stool Character, Coffee Ground Emesis, Constipation, Cramping, Diarrhea, Dyspepsia, Dysphagia, Early Satiety, Excessive Flatus, Fecal Incontinence, Heartburn, Hematemesis, Hematochezia, Loose Stools, Melena, Nausea, Odynophagia, Temesmus, Vomiting, Other - Genitourinary Genitourinary: absent: As Per HPI, Change in Urinary Stream, Difficulty Urinating, Dysuria, Flank Pain, Hematuria, Pyuria, Nocturia, Urinary Incont inence, Urinary Frequency, Urinary Hesitance, Urinary Urgency, Voiding Freq/Small Amts, Freq UTI, Hx Renal/Bladder Calculi, Hx /Renal Surgery, Bladder Distension, Other - Reproductive: Female Reproductive:Female: absent: As Per HPI, Amenorrhea, Amenorrhea/ Control, Currently Menstual, Cycle <21 Days, Cycle >35 Days, Cycle Variable, Menses 1-7 Days, Menses >/= 8 Days, Menses Variable, Cycle > 4 Weeks Between, No Menses for 6 Months, Heavy Menses, Light Menses, Normal Menses, Spotting Between Cycles, S/P Hysterectomy, Menopausal, Post Menopausal, Premenarche, Abnormal Vaginal Bleeding, Dysmenorrhea, Dyspareunia, Genital Lesions, Genital Pruritis, Pelvic Pain, Prolapse Symptoms, Sexual Dysfunction, Vaginal Discharge, Vaginal Dryness, Vaginal Odor, Vaginal Pruritis, Other - Menstruation Menstruation: absent: As Per HPI, Amenorrhea, Amenorrhea/ Control, Currently Menstual, Cycle <21 Days, Cycle >35 Days, Cycle Variable, Menses 1-7 Days, Menses >/= 8 Days, Menses Variable, Cycle > 4 Weeks Between, No Menses for 6 Months, Heavy Menses, Light Menses, Normal Menses, Spotting Between Cycles, S/P Hysterectomy, Menopausal, Post Menopausal, Premenarche, Abnormal Vaginal Bleeding, Dysmenorrhea, Other - Musculoskeletal Musculoskeletal: absent: As Per HPI, Abnormal Gait, Arthralgias, Atrophy, Back Pain, Deformity, Joint Swelling, Limited Range of Motion, Loss of Height, Muscle Cramps, Muscle Weakness, Myalgias, Neck Pain, Numbness, Radiating Pain into Limb, Stiffness, Tingling, Other - Integumentary Integumentary: absent: As Per HPI, Acne, Alopecia, Bleeding Lesions, Change in Hair, Change in Nails, Change in Pigmentation, Changing Lesions, Dry Skin, Erythema, Furuncle, Hirsutism, Lesions, New Lesions, Non-Healing Lesions, Photosensitivity, Pruritus, Rash, Skin Pain, Skin Ulcer, Sores, Striae, Swelling, Unusual Bruising, Wounds, Jaundice, Other - Psychiatric Psychiatric: absent: As Per HPI, Abnormal Sleep Pattern, Anhedonia, Anxiety, Auditory Hallucinations, Behavioral Changes, Change in Appetite, Change in Libido, Confusion, Depression, Difficulty Concentrating, Hallucinations, Homicidal Ideation, Hopelessness, Irritability, Memory Loss, Mood Swings, Panic Attacks, Paranoia, Suicidal Ideation, Visual Hallucinations, Tactile Hallucinations, Other - Endocrine Endocrine: absent: As Per HPI, Change in Body Appearance, Change in Libido, Cold Intolorance, Deepening of Voice, Excessive Sweating, Fatigue, Flushing, Heat Intolorance, Increase in Ring/Shoe/Hat Size, Palpitations, Polydipsia, Polyphagia, Polyuria, Other - Hematologic/Lymphatic Hematologic: absent: As Per HPI, Easy Bleeding, Easy Bruising, Lymphadenopathy, Other Past Patient History - Infectious Disease Hx of Infectious Diseases: None - Past Medical History & Family History Past Medical History?: Yes - Past Social History Smoking Status: Never Smoked - CARDIAC Hx Cardiac Disorders: No - PULMONARY Hx Asthma: Yes - NEUROLOGICAL Hx Neurological Disorder: No - HEENT Hx HEENT Problems: No - RENAL Hx Chronic Kidney Disease: No - ENDOCRINE/METABOLIC Hx Endocrine Disorders: No - HEMATOLOGICAL/ONCOLOGICAL Hx Blood Disorders: No - INTEGUMENTARY Hx Dermatological Problems: No - MUSCULOSKELETAL/RHEUMATOLOGICAL Hx Musculoskeletal Disorders: No Hx Falls: No - GASTROINTESTINAL Hx Gastrointestinal Disorders: No - GENITOURINARY/GYNECOLOGICAL Hx Genitourinary Disorders: No - PSYCHIATRIC Hx Substance Use: No - SURGICAL HISTORY Hx Surgeries: Yes Hx Section: Yes - ANESTHESIA Hx Anesthesia: Yes Hx Anesthesia Reactions: No Hx Malignant Hyperthermia: No Meds Allergies/Adverse Reactions: Allergies Allergy/AdvReac Type Severity Reaction Status Date / Time acetaminophen [From NyQuil] Allergy Verified 08/22/18 12:02 dextromethorphan HBr Allergy Verified 08/22/18 12:02 [From NyQuil] doxylamine succinate Allergy Verified 08/22/18 12:02 [From NyQuil] ibuprofen [From Advil] Allergy Verified 08/22/18 12:02 pseudoephedrine HCl Allergy Verified 08/22/18 12:02 [From NyQuil] - Medications Medications: Current Medications Acetylcysteine (Acetylcysteine 20%) 4 ml INH Q4H [facility] Last Admin: 09/13/18 05:12 Dose: Not Given Albuterol/Ipratropium (Duoneb 3 Mg/0.5 Mg (3 Ml) Ud) 3 ml INH RQ4 [facility] Last Admin: 09/13/18 07:51 Dose: 3 ml Carvedilol (Coreg) 3.125 mg PO BID [facility] Last Admin: 09/13/18 11:28 Dose: 3.125 mg Fluticasone/Vilanterol (Breo Ellipta 100-25 Mcg Inh) 1 puff INH RQD [facility] Last Admin: 09/12/18 08:01 Dose: 1 puff Furosemide (Lasix) 20 mg PO DAILY [facility] Last Admin: 09/13/18 11:28 Dose: 20 mg Guaifenesin (Mucinex La) 600 mg PO BID [facility] Last Admin: 09/13/18 11:28 Dose: 600 mg Piperacillin Sod/Tazobactam (Sod 3.375 gm/ Sodium Chloride) 100 mls @ 200 mls/hr IVPB Q6H [facility]; Protocol Last Admin: 09/13/18 11:35 Dose: 200 mls/hr Vancomycin HCl 1 gm/ Sodium (Chloride) 250 mls @ 166.7 mls/hr IVPB Q24H [facility]; Protocol Last Admin: 09/12/18 18:36 Dose: 166.7 mls/hr Methylprednisolone (Solu-Medrol) 40 mg IVP Q8H [facility] Last Admin: 09/13/18 11:27 Dose: 40 mg Montelukast Sodium (Singulair) 10 mg PO HS [facility] Last Admin: 09/12/18 22:10 Dose: 10 mg Pantoprazole Sodium (Protonix Ec Tab) 20 mg PO DAILY [facility] Last Admin: 09/13/18 11:27 Dose: 20 mg Pneumococcal Polyvalent Vaccine (Pneumovax 23 Vaccine) 0.5 ml IM .ONCE ONE Stop: 09/14/18 10:01 Physical Exam - Constitutional Appears: Cachectic, Chronically Ill - Head Exam Head Exam: ATRAUMATIC, NORMOCEPHALIC - Eye Exam Eye Exam: PERRL. absent: Scleral icterus Pupil Exam: NORMAL ACCOMODATION - ENT Exam ENT Exam: Mucous Membranes Dry, Normal External Ear Exam - Neck Exam Neck exam: Negative for: Lymphadenopathy - Respiratory Exam Respiratory Exam: Accessory Muscle Use, Decreased Breath Sounds, Prolonged Expiratory Phase, Rhonchi - Cardiovascular Exam Cardiovascular Exam: REGULAR RHYTHM, +S1, +S2 - GI/Abdominal Exam GI & Abdominal Exam: Diminished Bowel Sounds, Soft. absent: Tenderness - Rectal Exam Rectal Exam: Deferred - Exam Exam: NORMAL INSPECTION - Extremities Exam Extremities exam: Negative for: pedal edema - Back Exam Back exam: absent: CVA tenderness (L), CVA tenderness (R) - Neurological Exam Neurological exam: Alert, CN II-XII Intact, Oriented x3, Reflexes Normal - Psychiatric Exam Psychiatric exam: Depressed - Skin Skin Exam: Dry Results - Vital Signs Recent Vital Signs: Last Vital Signs Temp 98.0 F 09/13/18 08:56 Pulse 99 H 09/13/18 08:56 Resp 20 09/13/18 08:56 BP 112/82 09/13/18 11:28 Pulse Ox 100 09/13/18 08:56 - Labs Result Diagrams: 09/13/18 07:07 09/13/18 07:07 Labs: Laboratory Results - last 24 hr 09/12/18 09/13/18 09/13/18 08:50 07:07 07:07 WBC 22.1 H RBC 4.09 Hgb 10.6 L Hct 31.9 L MCV 78.0 L MCH 26.0 L MCHC 33.4 RDW 16.7 H Plt Count 241 MPV 9.7 Neut % (Auto) 95.7 H Lymph % (Auto) 1.3 L [place] % (Auto) 2.8 Eos % (Auto) 0.0 Baso % (Auto) 0.2 Neut # (Auto) 21.2 H Lymph # (Auto) 0.3 L [place] # (Auto) 0.6 Eos # (Auto) 0.0 Baso # (Auto) 0.0 Neutrophils % (Manual) 92 H Band Neutrophils % 2 Lymphocytes % (Manual) 3 L Monocytes % (Manual) 3 Platelet Estimate Normal Hypochromasia (manual) Slight Poikilocytosis (manual Slight Anisocytosis (manual) Slight Target Cells Slight Sodium 132 Potassium 4.2 Chloride 95 L Carbon Dioxide 32 H Anion Gap 10 BUN 19 H Creatinine 0.8 Est GFR ( Amer) > 60 Est GFR (Non-Af Amer) > 60 Random Glucose 149 H D Calcium 9.8 Phosphorus 4.6 H Magnesium 2.1 Total Bilirubin 0.5 AST 41 H D ALT 18 Alkaline Phosphatase 146 H Total Protein 6.2 L Albumin 3.1 L Globulin 3.1 Albumin/Globulin Ratio 1.0 Procalcitonin 1.32 H Assessment & Plan (1) Bronchiectasis with (acute) exacerbation Status: Acute (2) Congestive heart failure Status: Acute - Assessment and Plan (Free Text) Assessment: await cultures of blood and sputum agree with empiric IV antibiotics' prognosis is poor
--- NOTE | 2018-09-13 14:46 | CP.PCM.PN ---
<Stanton Padillaophe - Last Filed: 09/13/18 16:10> Subjective - Date & Time of Evaluation Date of Evaluation: 09/13/18 Time of Evaluation: 14:44 - Subjective Subjective: HOSPITALIST SERVICE Pt s/e and examined at bedside. pt reports persistent SOB and difficulty with deep inspiration, feels restricted, pt understands she needs intervention- will discuss her options with her family, denies CP FC NV. reports moderate improvement in respiratory status Objective - Vital Signs/Intake and Output Vital Signs (last 24 hours): Temp Pulse Resp BP Pulse Ox 98.0 F 109 H 20 112/82 94 L 09/13/18 08:56 09/13/18 11:25 09/13/18 13:38 09/13/18 11:28 09/13/18 11:25 - Medications Medications: Current Medications Acetylcysteine (Acetylcysteine 20%) 4 ml INH Q4H [facility] Last Admin: 09/13/18 13:33 Dose: Not Given Albuterol/Ipratropium (Duoneb 3 Mg/0.5 Mg (3 Ml) Ud) 3 ml INH RQ4 [facility] Last Admin: 09/13/18 12:05 Dose: 3 ml Carvedilol (Coreg) 3.125 mg PO BID [facility] Last Admin: 09/13/18 11:28 Dose: 3.125 mg Fluticasone/Vilanterol (Breo Ellipta 100-25 Mcg Inh) 1 puff INH RQD [facility] Last Admin: 09/12/18 08:01 Dose: 1 puff Furosemide (Lasix) 20 mg PO DAILY [facility] Last Admin: 09/13/18 11:28 Dose: 20 mg Guaifenesin (Mucinex La) 600 mg PO BID [facility] Last Admin: 09/13/18 11:28 Dose: 600 mg Piperacillin Sod/Tazobactam (Sod 3.375 gm/ Sodium Chloride) 100 mls @ 200 mls/hr IVPB Q6H [facility]; Protocol Last Admin: 09/13/18 11:35 Dose: 200 mls/hr Vancomycin HCl 1 gm/ Sodium (Chloride) 250 mls @ 166.7 mls/hr IVPB Q24H [facility]; Protocol Last Admin: 09/12/18 18:36 Dose: 166.7 mls/hr Methylprednisolone (Solu-Medrol) 40 mg IVP Q8H [facility] Last Admin: 09/13/18 11:27 Dose: 40 mg Montelukast Sodium (Singulair) 10 mg PO HS [facility] Last Admin: 09/12/18 22:10 Dose: 10 mg Pantoprazole Sodium (Protonix Ec Tab) 20 mg PO DAILY [facility] Last Admin: 09/13/18 11:27 Dose: 20 mg Pneumococcal Polyvalent Vaccine (Pneumovax 23 Vaccine) 0.5 ml IM .ONCE ONE Stop: 09/14/18 10:01 - Labs Labs: 09/13/18 07:07 09/13/18 07:07 - Additional Findings Additional findings: - Constitutional Appears: Cachectic, Chronically Ill - Head Exam Head Exam: ATRAUMATIC, NORMOCEPHALIC - Eye Exam Eye Exam: PERRL. absent: Scleral icterus Pupil Exam: NORMAL ACCOMODATION - ENT Exam ENT Exam: Mucous Membranes Dry, Normal External Ear Exam - Neck Exam Neck exam: Negative for: Lymphadenopathy - Respiratory Exam Respiratory Exam: Accessory Muscle Use, Decreased Breath Sounds, Prolonged Expiratory Phase, Rhonchi - Cardiovascular Exam Cardiovascular Exam: REGULAR RHYTHM, +S1, +S2 - GI/Abdominal Exam GI & Abdominal Exam: Diminished Bowel Sounds, Soft. absent: Tenderness - Rectal Exam Rectal Exam: Deferred - Exam Exam: NORMAL INSPECTION - Extremities Exam Extremities exam: Negative for: pedal edema - Back Exam Back exam: absent: CVA tenderness (L), CVA tenderness (R) - Neurological Exam Neurological exam: Alert, CN II-XII Intact, Oriented x3, Reflexes Normal - Psychiatric Exam Psychiatric exam: Depressed - Skin Skin Exam: Dry Assessment and Plan - Assessment and Plan (Free Text) Assessment: Assessment: This is a 68 year old female with PMH of newly diagnosed HFrEF, bronchiectasis who presents for epigastric abdominal pain for the past [address] with IV contrast done in the ED shows small pneumothorax. Sodium noted to be 119. Hyponatremia * Likely hypovolemic hyponatremia * Nephro Consulted: Dr. Angélica malik appreciated * Resolving; Sodium uptrending; Goal of 6-8 in 24hrs from 4/6 8AM to 4/7 8AM * Na 120 on 09/12/18 Pneumothorax, acute * Abdominal CT shows minimal right basilar pnuemothorax * Pulmonology, Dr. Bashir, consulted * Continue current antibiotic therapy of Vanc/Zosyn Continue duoneb, Breo, singular, Mucinex, and IV steriods Continue high flow oxygen. Continue Lasix 20 mg daily Possible tissue bronchoscope (CT guided vs surgical vs bronch) * on Hi flow O2 * CXR -7: suspicious for righted small 10 percent pneumothorax * CT chest -: interval apperance of small 5-10% right sided pneumothorax; 2 cavitary formation of left lower lung possible cystic bronchiectasis, small left pleural effusion * CXR 09/12: pneumothorax improved * ABG 09/11/18: CO2 39, O2 75, HCO3 27.7, pH 7.45 Abdominal pain, resolved * Likely due to potassium chloride medications pt was discharged with * Abdominal CT with IV contrast prelim reading shows ileus vs developing enteri tis; f/u official reading * Leukocytosis likely due to steroid treatment, pt afebrile * Protonix 20 mg PO daily * Given Cipro 400 mg IVPB x 1, Flagyl 500 mg IVPB x 1, Pepcid 20 mg PO, Maalox 30 mL PO in the ED Cystic Bronchiectasis, chronic Bilateral Pneumonia, L pleural effusion * Pulmonology, Dr. Bashir, consulted * CT chest (08/22/18): areas of dense consolidation/atelectasis in the left lung base; progressed 03/01/16. Extensive cystic changes seen throughout the left lung and less so the right upper lobe possibly representing cystic bronchiectasis. Left sided effusion possibly with some loculated components. mucous plugging changes or compressive effects on the proximal branches of the left upper and lower lobe of bronchi. mild fatty hepatic infiltration. gastric wall thickening in part of incomplete distension. markedly distended urinary bladder, rule out urinary retention * Recent admission labs (08/22-09/03) * ANCA screen is negative * Proteinase 3 <1.0 * myeloperoxidase <1.0 * b DGlucan negative * indeterminate quantiferon * Aspergillus flavus negative * Aspergillus fumigatus negative * Aspergillus niger negative * HIV negative * influenza negative * Hepatitis negative * Rheumatoid factor IgM elevated at 80 * Blood culture (08/22/18): no growth after 5 days X2 * Myobacterial culture (08/23/18): negative for AFB. prelim * Myobacterial culture (08/25/18): negative for AFB. prelim * Myobacterial culture (08/28/18): negative for AFB. prelim * Mycobacterium complex PCR negative * hisplasmosis AB negative, MARY level normal * continue chest physiotherapy, Duonebs q4, singulair 10 mg PO QHS, Breo ellipta once daily, Mucinex 600 mg PO BID, O2 High flow oxygen * Added solumedrol 40mg IV Q8H * Possible Bronchoscopy w/ Dr Bashir * CT surgery consult pending family decision regarding open lung biopsy/FNA/bronchoscopy * ID Dr Land consulted- agrees w/ empiric abx Heart Failure with Reduced Ejection Fraction, chronic * Echocardiogram (08/27/18) left ventricular systolic function is severely impaired. ejection fraction is 25-30%. atrial septum aneurysmal. possible asd? no aortic regurgitation is present. mitral regurgitation is mild to moderate. mild tricuspid regurgitation. mild pulmonary hypertension. * Cardiac cath showed nonischemic cardiomyopathy. Dr. Pedraza, cardiology, evaluated the pt on last admission and recommended medical HFrEF management rather than lifevest/aicd placement. * Continue Carvedilol 3.125 mg PO BID * Losartan 25 mg PO on hold, Aldactone 12.5 mg PO once daily on hold * Lasix 20mg po daily Leukocytosis * Influenza negative * Possibly related to bronchiectasis as neutrophils significantly elevated * IV Vanc/zosyn Cachexia * 30lb weight loss in 2 months * Truck Driving referral * Ensure Compact TID (660 kcals, 27 gm protein) PPx - DVT ppx: Heparin 5000u SC q12, SCDs - GI: Protonix 20mg po daily - Diet: HHD - Aspiration precautions due to increased mucus production Pt is full code, understands that intubation is a possibility in case of e mergency. She reports that her sons will make decisions for her in case she is incapacitated. Patient on Hi flow O2, Duonebs increased to Q4, Solu-medrol 40mg IV Q8H added due to respiratory distress. Patient improved today with these changes. Reviewed various options of obtaining lung bx with patient and son (open lung bx vs VATS vs. IR FNA vs. Bronchoscopy with Pulm). Patient is apprehensive about these options. Son states he will have to talk to the family and patient and will need time to make a decision. f/u repeat urine cx. Dispo: f/u PAUL, possible bronch w/ Dr Bashir, c/w vanc-zosyn, solumedrol 40 q8 CK pgy1 <Nikki Hill V - Last Filed: 09/13/18 23:52> Objective - Vital Signs/Intake and Output Vital Signs (last 24 hours): Temp Pulse Resp BP Pulse Ox 97.3 F L 86 20 114/73 97 09/13/18 16:00 09/13/18 21:33 09/13/18 19:36 09/13/18 16:00 09/13/18 16:00 Intake and Output: 09/13/18 09/14/18 18:59 06:59 Intake Total 450 Balance 450 - Medications Medications: Current Medications Acetylcysteine (Acetylcysteine 20%) 4 ml INH Q4H [facility] Last Admin: 09/13/18 16:51 Dose: 4 ml Albuterol/Ipratropium (Duoneb 3 Mg/0.5 Mg (3 Ml) Ud) 3 ml INH RQ4 [facility] Last Admin: 09/13/18 19:36 Dose: 3 ml Carvedilol (Coreg) 3.125 mg PO BID [facility] Last Admin: 09/13/18 17:31 Dose: 3.125 mg Fluticasone/Vilanterol (Breo Ellipta 100-25 Mcg Inh) 1 puff INH RQD [facility] Last Admin: 09/12/18 08:01 Dose: 1 puff Furosemide (Lasix) 20 mg PO DAILY [facility] Last Admin: 09/13/18 11:28 Dose: 20 mg Guaifenesin (Mucinex La) 600 mg PO BID [facility] Last Admin: 09/13/18 17:31 Dose: 600 mg Piperacillin Sod/Tazobactam (Sod 3.375 gm/ Sodium Chloride) 100 mls @ 200 mls/hr IVPB Q6H [facility]; Protocol Last Admin: 09/13/18 17:31 Dose: 200 mls/hr Vancomycin HCl 1 gm/ Sodium (Chloride) 250 mls @ 166.7 mls/hr IVPB Q24H [facility]; Protocol Last Admin: 09/13/18 19:17 Dose: 166.7 mls/hr Methylprednisolone (Solu-Medrol) 40 mg IVP Q8H [facility] Last Admin: 09/13/18 17:30 Dose: 40 mg Montelukast Sodium (Singulair) 10 mg PO HS [facility] Last Admin: 09/13/18 21:12 Dose: 10 mg Pantoprazole Sodium (Protonix Ec Tab) 20 mg PO DAILY [facility] Last Admin: 09/13/18 11:27 Dose: 20 mg - Labs Labs: 09/13/18 07:07 09/13/18 07:07 Attending/Attestation - Attestation I have personally seen and examined this patient.: Yes I have fully participated in the care of the patient.: Yes I have reviewed all pertinent clinical information, including history, physical exam and plan: Yes Notes (Text): Patient seen, examined and case discussed with day-time resident. Patient breathing improved since starting the IV steroids yesterday. Will continue IV abx to cover for pneumonia. 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 she was evaluated by cardiology last admission started on medical therapy. We are awaiting decision by son in regards to how aggressive we are to be with the patient regarding biopsy etc. Given patient's lung status, she is high risk and her cardiac status she is high risk for intervention. Pulm recommending to check esr, crp, and paul regarding autoimmune workup. I have reconsulted palliative care regarding goals of care for the patient.
--- NOTE | 2018-09-13 23:24 | CP.PCM.PN ---
Subjective - Date & Time of Evaluation Date of Evaluation: 09/13/18 Time of Evaluation: 13:00 - Subjective Subjective: Patient tolerating diet well; reports sob improved; is adhering to PO fluid restriction; Objective - Vital Signs/Intake and Output Vital Signs (last 24 hours): Temp Pulse Resp BP Pulse Ox 97.3 F L 86 20 114/73 97 09/13/18 16:00 09/13/18 21:33 09/13/18 19:36 09/13/18 16:00 09/13/18 16:00 Intake and Output: 09/13/18 09/14/18 18:59 06:59 Intake Total 450 Balance 450 - Medications Medications: Current Medications Acetylcysteine (Acetylcysteine 20%) 4 ml INH Q4H TANA Last Admin: 09/13/18 16:51 Dose: 4 ml Albuterol/Ipratropium (Duoneb 3 Mg/0.5 Mg (3 Ml) Ud) 3 ml INH RQ4 TANA Last Admin: 09/13/18 19:36 Dose: 3 ml Carvedilol (Coreg) 3.125 mg PO BID TANA Last Admin: 09/13/18 17:31 Dose: 3.125 mg Fluticasone/Vilanterol (Breo Ellipta 100-25 Mcg Inh) 1 puff INH RQD TANA Last Admin: 09/12/18 08:01 Dose: 1 puff Furosemide (Lasix) 20 mg PO DAILY TANA Last Admin: 09/13/18 11:28 Dose: 20 mg Guaifenesin (Mucinex La) 600 mg PO BID TANA Last Admin: 09/13/18 17:31 Dose: 600 mg Piperacillin Sod/Tazobactam (Sod 3.375 gm/ Sodium Chloride) 100 mls @ 200 m ls/hr IVPB Q6H TANA; Protocol Last Admin: 09/13/18 17:31 Dose: 200 mls/hr Vancomycin HCl 1 gm/ Sodium (Chloride) 250 mls @ 166.7 mls/hr IVPB Q24H TANA; Protocol Last Admin: 09/13/18 19:17 Dose: 166.7 mls/hr Methylprednisolone (Solu-Medrol) 40 mg IVP Q8H [facility]NA Last Admin: 09/13/18 17:30 Dose: 40 mg Montelukast Sodium (Singulair) 10 mg PO HS TANA Last Admin: 09/13/18 21:12 Dose: 10 mg Pantoprazole Sodium (Protonix Ec Tab) 20 mg PO DAILY [facility] Last Admin: 09/13/18 11:27 Dose: 20 mg Pneumococcal Polyvalent Vaccine (Pneumovax 23 Vaccine) 0.5 ml IM .ONCE ONE Stop: 09/14/18 10:01 - Labs Labs: 09/13/18 07:07 09/13/18 07:07 - Constitutional Appears: Non-toxic, No Acute Distress - Eye Exam Eye Exam: Normal appearance - Respiratory Exam Respiratory Exam: absent: NORMAL BREATHING PATTERN Additional comments: tachypneic; bronchial breath sounds over much of lung pal; - Cardiovascular Exam Cardiovascular Exam: RRR, +S1, +S2 - GI/Abdominal Exam GI & Abdominal Exam: Soft. absent: Distended - Extremities Exam Additional comments: no leg edema; - Neurological Exam Neurological Exam: Alert, Awake - Psychiatric Exam Psychiatric exam: Normal Mood. absent: Agitated - Skin Skin Exam: Warm. absent: Cyanosis Assessment and Plan (1) Hyponatremia Assessment & Plan: Improved with PO fluid restriction, should continue the same with goal <1.5L per day; awaiting repeat urine osm; Status: Acute (2) Heart failure with reduced ejection fraction Assessment & Plan: Appears euvolemic on exam; on lasix 20 mg daily, will cause some degree of volume depletion so patient needs to be adherent to PO fluid restriction to avoid recurrence of hyponatremia; continue to optmize with B-blockers; Status: Chronic
[2018-09-14] MEDS: Piperacillin/Tazobact 3.375 GM in Sodium Chloride 100 ML IVPB SCH ×6 (00:18→17:35)
[2018-09-14] MEDS: Acetylcysteine 20% Inhal Soln (4ml) INH SCH ×4 (00:37→20:42)
[2018-09-14] MEDS: Albuterol-Ipratrop 3 mg / 0.5 (3 ml) UD INH SCH ×6 (00:38→20:42)
[2018-09-14] MEDS: MethylPREDNISolone 40 mg Vial IVP SCH ×3 (00:45→17:35)
[2018-09-14] MEDS: Fluticasone-Vilanterol 100/25mcg Diskus INH SCH ×2 (08:02→08:21)
[2018-09-14 08:09] LABS: BASO % 0.1 % (0.0-2.0); HEMOGLOBIN 10.2 g/dL (11.0-16.0); LYMPH # 0.4 K/uL (1.0-4.3); LYMPH % 1.7 % (20.0-40.0); MEAN CELL VOLUME 77.8 fL (81.0-99.0); MEAN CORPUSCULAR HGB CONC 33.4 g/dL (33.0-37.0); MEAN PLATELET VOLUME 9.3 fL (7.2-11.7); MONO # 0.9 K/uL (0.0-0.8); MONO % 4.3 % (0.0-10.0); NEUT # 20.3 K/uL (1.8-7.0); NEUT % 93.9 % (50.0-75.0); NRBC % 0.1 % (0.0-2.0); PLATELET COUNT 254 K/uL (130-400); RBC 3.93 Mil/uL (3.80-5.20); RED CELL DISTRIBUTION WIDTH 16.7 % (11.5-14.5); WHITE BLOOD COUNT 21.6 K/uL (4.8-10.8)
[2018-09-14 08:27] LABS: ALT/SGPT 15 U/L (9-52); AST/SGOT 35 U/L (14-36); BLOOD UREA NITROGEN 23 mg/dL (7-17); CALCIUM 9.5 mg/dl (8.6-10.4); GFR NON-AFRICAN AMERICAN > 60
[2018-09-14 08:45] LABS: BANDS 1 % (0-2); LYMPHOCYTE 1 % (20-40); MONOCYTE 3 % (0-10); TOTAL CELLS COUNTED 100
[2018-09-14 08:46] LABS: ANISOCYTOSIS SLIGHT; HYPOCHROMIC SLIGHT; NEUTROPHIL 95 % (50-75); PLATELET ESTIMATE NORMAL (NORMAL); POIKILOCYTOSIS SLIGHT; TARGET CELLS SLIGHT
[2018-09-14 09:22] LABS: ERYTHROCYTE SEDIMENTATION RATE 113 mm/hr (0-20)
[2018-09-14] MEDS: guaiFENesin 600 mg ER Tab PO SCH ×2 (09:26→17:35)
[2018-09-14] MEDS: Pantoprazole 20 mg EC Tab PO SCH (09:26)
--- NOTE | 2018-09-14 09:41 | CP.PCM.PN ---
Subjective - Date & Time of Evaluation Date of Evaluation: 09/14/18 Time of Evaluation: 09:00 - Subjective Subjective: Progress note for Dr. Hill. Patient seen and examined at bedside. Complains of persitent SOB and some abdominal pain with coughing. Denies fever, chills, nausea, vomiting. Objective - Vital Signs/Intake and Output Vital Signs (last 24 hours): Temp Pulse Resp BP Pulse Ox 97.5 F L 108 H 16 109/82 95 09/13/18 23:00 09/14/18 08:24 09/14/18 05:53 09/14/18 09:26 09/13/18 23:00 Intake and Output: 09/14/18 09/14/18 06:59 18:59 Intake Total 450 370 Balance 450 370 - Medications Medications: Current Medications Acetylcysteine (Acetylcysteine 20%) 4 ml INH Q4H TANA Last Admin: 09/14/18 05:01 Dose: Not Given Albuterol/Ipratropium (Duoneb 3 Mg/0.5 Mg (3 Ml) Ud) 3 ml INH RQ4 TANA Last Admin: 09/14/18 08:01 Dose: 3 ml Carvedilol (Coreg) 3.125 mg PO BID TANA Last Admin: 09/14/18 09:26 Dose: 3.125 mg Fluticasone/Vilanterol (Breo Ellipta 100-25 Mcg Inh) 1 puff INH RQD TANA Last Admin: 09/14/18 08:21 Dose: 1 puff Furosemide (Lasix) 20 mg PO DAILY [facility]NA Last Admin: 09/14/18 09:26 Dose: 20 mg Guaifenesin (Mucinex La) 600 mg PO BID TANA Last Admin: 09/14/18 09:26 Dose: 600 mg Piperacillin Sod/Tazobactam (Sod 3.375 gm/ Sodium Chloride) 100 mls @ 200 ml s/hr IVPB Q6H [facility]NA; Protocol Last Admin: 09/14/18 05:33 Dose: 200 mls/hr Vancomycin HCl 1 gm/ Sodium (Chloride) 250 mls @ 166.7 mls/hr IVPB Q24H [facility]NA; Protocol Last Admin: 09/13/18 19:17 Dose: 166.7 mls/hr Methylprednisolone (Solu-Medrol) 40 mg IVP Q8H [facility] Last Admin: 09/14/18 09:26 Dose: 40 mg Montelukast Sodium (Singulair) 10 mg PO HS [facility] Last Admin: 09/13/18 21:12 Dose: 10 mg Pantoprazole Sodium (Protonix Ec Tab) 20 mg PO DAILY [facility] Last Admin: 09/14/18 09:26 Dose: 20 mg - Labs Labs: 09/14/18 08:03 09/14/18 08:03 - Constitutional Appears: Other (cachectic) - Head Exam Head Exam: ATRAUMATIC, NORMOCEPHALIC - Eye Exam Eye Exam: EOMI, Normal appearance, PERRL - ENT Exam ENT Exam: Mucous Membranes Moist - Neck Exam Neck Exam: Full ROM, Normal Inspection - Respiratory Exam Respiratory Exam: Accessory Muscle Use, Decreased Breath Sounds, Prolonged Expiratory Phase Additional comments: Tachypneic - Cardiovascular Exam Cardiovascular Exam: Tachycardia, +S1, +S2 - GI/Abdominal Exam GI & Abdominal Exam: Soft, Normal Bowel Sounds. absent: Distended, Firm, Rigid, Tenderness, Rebound - Neurological Exam Neurological Exam: Alert, Awake, Oriented x3 - Psychiatric Exam Psychiatric exam: Anxious - Skin Skin Exam: Dry, Intact, Normal Color, Warm Assessment and Plan - Assessment and Plan (Free Text) Plan: Assessment: This is a 68 year old female with PMH of newly diagnosed HFrEF, bronchiectasis who presents for epigastric abdominal pain for the past [address] with IV contrast done in the ED shows small pneumothorax. Sodium noted to be 11 9. Hyponatremia * Likely hypovolemic hyponatremia * Nephro Consulted: Dr. Lindsay - king appreciated * Resolving; Sodium uptrending; Goal of 6-8 in 24hrs from 4/6 8AM to 09/11 8AM * Na 120 on 09/12/18 Pneumothorax, acute * Abdominal CT shows minimal right basilar pnuemothorax * Pulmonology, Dr. Bashir, consulted * Continue current antibiotic therapy of Vanc/Zosyn Continue duoneb, Breo, singular, Mucinex, and IV steriods Continue high flow oxygen. Continue Lasix 20 mg daily Possible tissue bronchoscope (CT guided vs surgical vs bronch) * on Hi flow O2 * CXR 4-7: suspicious for righted small 10 percent pneumothorax * CT chest 4-7: interval apperance of small 5-10% right sided pneumothorax; 2 cavitary formation of left lower lung possible cystic bronchiectasis, small left pleural effusion * CXR 09/12: pneumothorax improved * ABG 09/11/18: CO2 39, O2 75, HCO3 27.7, pH 7.45 Abdominal pain, resolved * Likely due to potassium chloride medications pt was discharged with * Abdominal CT with IV contrast prelim reading shows ileus vs developing enteritis; f/u official reading * Leukocytosis likely due to steroid treatment, pt afebrile * Protonix 20 mg PO daily * Given Cipro 400 mg IVPB x 1, Flagyl 500 mg IVPB x 1, Pepcid 20 mg PO, Maalox 30 mL PO in the ED Cystic Bronchiectasis, chronic Bilateral Pneumonia, L pleural effusion * Pulmonology, Dr. Bashir, consulted * CT chest (08/22/18): areas of dense consolidation/atelectasis in the left lung base; progressed 03/01/16. Extensive cystic changes seen throughout the left lung and less so the right upper lobe possibly representing cystic bronchiectasis. Left sided effusion possibly with some loculated components. mucous plugging changes or compressive effects on the proximal branches of the left upper and lower lobe of bronchi. mild fatty hepatic infiltration. gastric wall thickening in part of incomplete distension. markedly distended urinary bladder, rule out urinary retention * Recent admission labs (08/22-09/03) * ANCA screen is negative * Proteinase 3 <1.0 * myeloperoxidase <1.0 * b DGlucan negative * indeterminate quantiferon * Aspergillus flavus negative * Aspergillus fumigatus negative * Aspergillus niger negative * HIV negative * influenza negative * Hepatitis negative * Rheumatoid factor IgM elevated at 80 * Blood culture (08/22/18): no growth after 5 days X2 * Myobacterial culture (08/23/18): negative for AFB. prelim * Myobacterial culture (08/25/18): negative for AFB. prelim * Myobacterial culture (08/28/18): negative for AFB. prelim * Mycobacterium complex PCR negative * hisplasmosis AB negative, MARY level normal * continue chest physiotherapy, Duonebs q4, singulair 10 mg PO QHS, Breo ellipta once daily, Mucinex 600 mg PO BID, O2 High flow oxygen * Added solumedrol 40mg IV Q8H * Possible Bronchoscopy w/ Dr Bashir * CT surgery consult pending family decision regarding open lung biopsy/FNA/bronchoscopy * ID Dr Land consulted- agrees w/ empiric abx Heart Failure with Reduced Ejection Fraction, chronic * Echocardiogram (08/27/18) left ventricular systolic function is severely impaired. ejection fraction is 25-30%. atrial septum aneurysmal. possible asd? no aortic regurgitation is present. mitral regurgitation is mild to moderate. mild tricuspid regurgitation. mild pulmonary hypertension. * Cardiac cath showed nonischemic cardiomyopathy. Dr. Pedraza, cardiology, evaluated the pt on last admission and recommended medical HFrEF management rather than lifevest/aicd placement. * Continue Carvedilol 3.125 mg PO BID * Losartan 25 mg PO on hold, Aldactone 12.5 mg PO once daily on hold * Lasix 20mg po daily Leukocytosis * Influenza negative * Possibly related to bronchiectasis as neutrophils significantly elevated * IV Vanc/zosyn Cachexia * 30lb weight loss in 2 months * General Cleaner referral * Ensure Compact TID (660 kcals, 27 gm protein) PPx - DVT ppx: Heparin 5000u SC q12, SCDs - GI: Protonix 20mg po daily - Diet: HHD - Aspiration precautions due to increased mucus production Pt is full code, understands that intubation is a possibility in case of emergency. She reports that her sons will make decisions for her in case she is incapacitated. Patient on Hi flow O2, Duonebs increased to Q4, Solu-medrol 40mg IV Q8H added due to respiratory distress. Patient improved today with these changes. Reviewed various options of obtaining lung bx with patient and son (open lung bx vs VATS vs. IR FNA vs. Bronchoscopy with Pulm). Patient is apprehensive about these options. Son states he will have to talk to the family and patient and will need time to make a decision. f/u repeat urine cx. Dispo: f/u BAUTISTA, possible bronch w/ Dr Bashir, c/w vanc-zosyn, solumedrol 40 q8
[2018-09-14] MEDS ORDERED: Pneumococcal 23-Valent Vaccine IM ONE (10:00)
[2018-09-14 10:13] LABS: OSMOLALITY,URINE 427 mosm/kg (300-1000)
--- NOTE | 2018-09-14 10:42 | CP.PCM.PN ---
Subjective - Date & Time of Evaluation Date of Evaluation: 09/14/18 Time of Evaluation: 10:40 - Subjective Subjective: Medical Attending Note: Patient seen and examined at bedside. Patient denies headache, denies chest pain, reports cough is less, denies abdominal pain, reports moving her bowels, denies urinary complaints. No family present at bedside. Reports her son will come later today. Objective - Vital Signs/Intake and Output Vital Signs (last 24 hours): Temp Pulse Resp BP Pulse Ox 97.5 F L 108 H 16 109/82 95 09/13/18 23:00 09/14/18 08:24 09/14/18 09:47 09/14/18 09:26 09/13/18 23:00 Intake and Output: 09/14/18 09/14/18 06:59 18:59 Intake Total 450 370 Balance 450 370 - Medications Medications: Current Medications Acetylcysteine (Acetylcysteine 20%) 4 ml INH Q4H TANA Last Admin: 09/14/18 05:01 Dose: Not Given Albuterol/Ipratropium (Duoneb 3 Mg/0.5 Mg (3 Ml) Ud) 3 ml INH RQ4 TANA Last Admin: 09/14/18 08:01 Dose: 3 ml Carvedilol (Coreg) 3.125 mg PO BID TANA Last Admin: 09/14/18 09:26 Dose: 3.125 mg Fluticasone/Vilanterol (Breo Ellipta 100-25 Mcg Inh) 1 puff INH RQD TANA Last Admin: 09/14/18 08:21 Dose: 1 puff Furosemide (Lasix) 20 mg PO DAILY [facility] Last Admin: 09/14/18 09:26 Dose: 20 mg Guaifenesin (Mucinex La) 600 mg PO BID TANA Last Admin: 09/14/18 09:26 Dose: 600 mg Piperacillin Sod/Tazobactam (Sod 3.375 gm/ Sodium Chloride) 100 mls @ 200 m ls/hr IVPB Q6H TANA; Protocol Last Admin: 09/14/18 05:33 Dose: 200 mls/hr Vancomycin HCl 1 gm/ Sodium (Chloride) 250 mls @ 166.7 mls/hr IVPB Q24H TANA; Protocol Last Admin: 09/13/18 19:17 Dose: 166.7 mls/hr Methylprednisolone (Solu-Medrol) 40 mg IVP Q8H [facility] Last Admin: 09/14/18 09:26 Dose: 40 mg Montelukast Sodium (Singulair) 10 mg PO HS [facility] Last Admin: 09/13/18 21:12 Dose: 10 mg Pantoprazole Sodium (Protonix Ec Tab) 20 mg PO DAILY [facility] Last Admin: 09/14/18 09:26 Dose: 20 mg - Labs Labs: 09/14/18 08:03 09/14/18 08:03 - Constitutional Appears: Non-toxic, No Acute Distress, Cachectic - Head Exam Head Exam: NORMAL INSPECTION - Eye Exam Eye Exam: EOMI - ENT Exam ENT Exam: Mucous Membranes Dry - Respiratory Exam Respiratory Exam: Decreased Breath Sounds, Rhonchi. absent: Stridor - Cardiovascular Exam Cardiovascular Exam: Tachycardia, +S1, +S2 - GI/Abdominal Exam GI & Abdominal Exam: Soft, Normal Bowel Sounds. absent: Distended, Firm, Guarding, Rigid, Tenderness, Rebound - Extremities Exam Extremities Exam: absent: Pedal Edema, Tenderness - Neurological Exam Neurological Exam: Alert, Awake, Oriented x3 - Psychiatric Exam Psychiatric exam: Normal Affect, Normal Mood - Skin Skin Exam: Dry, Intact, Normal Color, Warm Attending/Attestation - Attestation I have personally seen and examined this patient.: Yes I have fully participated in the care of the patient.: Yes I have reviewed all pertinent clinical information, including history, physical exam and plan: Yes Notes (Text): Assessment/Plan 1. Cystic Bronchiectasis, chronic Healthcare associated pneumonis Fibrosis Pneumothorax Assessment/Plan * Pulmonology, Dr. Bashir, consulted help appreciated * CT chest (08/22/18): areas of dense consolidation/atelectasis in the left lung base; progressed 03/01/16. Extensive cystic changes seen throughout the left lung and less so the right upper lobe possibly representing cystic bronchiectasis. Left sided effusion possibly with some loculated components. mucous plugging changes or compressive effects on the proximal branches of the left upper and lower lobe of bronchi. mild fatty hepatic infiltration. gastric wall thickening in part of incomplete distension. markedly distended urinary bladder, rule out urinary retention * ESRL 113, CRP: 193.80, pending BAUTISTA * repeat chest xray today * Recent admission labs (08/22-09/03) * ANCA screen is negative * Proteinase 3 <1.0 * myeloperoxidase <1.0 * b DGlucan negative * indeterminate quantiferon * Aspergillus flavus negative * Aspergillus fumigatus negative * Aspergillus niger negative * HIV negative * influenza negative * Hepatitis negative * Rheumatoid factor IgM elevated at 80 * Blood culture (08/22/18): no growth after 5 days X2 * Myobacterial culture (08/23/18): negative for AFB. prelim * Myobacterial culture (08/25/18): negative for AFB. prelim * Myobacterial culture (08/28/18): negative for AFB. prelim * Mycobacterium complex PCR negative * hisplasmosis AB negative, MARY level normal * continue chest physiotherapy, Duonebs q4, singulair 10 mg PO QHS, Breo ellipta once daily, Mucinex 600 mg PO BID, O2 High flow oxygen * Solumedrol 40mg IV Q8H (active since 09/12/18) * CT surgery consult pending family decision regarding open lung biopsy/FNA/bronchoscopy * Son to come later today * ID Dr Land consulted- agrees w/ empiric abx * Patient is high risk given lung and cardiac status for further procedures Hyponatremia (resolved) * Nephro Consulted: Dr. Lindsay - recnicholas appreciated * Improved with PO fluid restriction, should continue the same with goal <1.5L per day; awaiting repeat urine osm; * normalized Abdominal pain, resolved * Likely due to potassium chloride medications pt was discharged with * Abdominal CT with IV contrast prelim reading shows ileus vs developing enteritis; f/u official reading * Leukocytosis likely due to steroid treatment, pt afebrile * Protonix 20 mg PO daily * Given Cipro 400 mg IVPB x 1, Flagyl 500 mg IVPB x 1, Pepcid 20 mg PO, Maalox 30 mL PO in the ED Heart Failure with Reduced Ejection Fraction, chronic * Echocardiogram (08/27/18) left ventricular systolic function is severely impaired. ejection fraction is 25-30%. atrial septum aneurysmal. possible asd? no aortic regurgitation is present. mitral regurgitation is mild to moderate. mild tricuspid regurgitation. mild pulmonary hypertension. * Cardiac cath showed nonischemic cardiomyopathy. Dr. Pedraza, cardiology, evaluated the pt on last admission and recommended medical HFrEF management rather than lifevest/aicd placement. * Continue Carvedilol 3.125 mg PO BID * Losartan 25 mg PO on hold, Aldactone 12.5 mg PO once daily on hold (given bor derline potassium level) * Lasix 20mg po daily Leukocytosis * Influenza negative * Zosyn 3.375g IVPB Q6H (active since 09/11/18) * Vancomycin 1 gram IVPB Q24h (active since 09/11/18) * Solumedrol 40mg IVPB Q8H Cachexia * 30lb weight loss in 2 months * Landscape Account Manager referral * Ensure Compact TID (660 kcals, 27 gm protein) PPx * DVT ppx: Heparin 5000u SC q12 (refusing), SCDs * GI: Protonix 20mg po daily * Diet: HHD * Aspiration precautions due to increased mucus production Disposition: pending palliative care discussion with family and son; patient is high risk for procedure noted. follow-up chest xray for today. Elevated ESR/CRP today.
--- NOTE | 2018-09-14 10:45 | CP.PCM.PN ---
Subjective - Date & Time of Evaluation Date of Evaluation: 09/14/18 Time of Evaluation: 10:39 - Subjective Subjective: Pulmonary Progress note for Dr. Bashir's service Patient was seen and examined at bedside. Patient reports SOB is the same as yesterday. Patient reports she woke up with abdominal discomfort this morning. Pt denies CP, fever, chills, nausea, vomiting, and dizziness. Objective - Vital Signs/Intake and Output Vital Signs (last 24 hours): Temp Pulse Resp BP Pulse Ox 97.5 F L 108 H 16 109/82 95 09/13/18 23:00 09/14/18 08:24 09/14/18 09:47 09/14/18 09:26 09/13/18 23:00 Intake and Output: 09/14/18 09/14/18 06:59 18:59 Intake Total 450 370 Balance 450 370 - Medications Medications: Current Medications Acetylcysteine (Acetylcysteine 20%) 4 ml INH Q4H TANA Last Admin: 09/14/18 05:01 Dose: Not Given Albuterol/Ipratropium (Duoneb 3 Mg/0.5 Mg (3 Ml) Ud) 3 ml INH RQ4 TANA Last Admin: 09/14/18 08:01 Dose: 3 ml Carvedilol (Coreg) 3.125 mg PO BID [facility] Last Admin: 09/14/18 09:26 Dose: 3.125 mg Fluticasone/Vilanterol (Breo Ellipta 100-25 Mcg Inh) 1 puff INH RQD TANA Last Admin: 09/14/18 08:21 Dose: 1 puff Furosemide (Lasix) 20 mg PO DAILY [facility] Last Admin: 09/14/18 09:26 Dose: 20 mg Guaifenesin (Mucinex La) 600 mg PO BID [facility] Last Admin: 09/14/18 09:26 Dose: 600 mg Piperacillin Sod/Tazobactam (Sod 3.375 gm/ Sodium Chloride) 100 mls @ 200 mls/hr IVPB Q6H [facility]; Protocol Last Admin: 09/14/18 05:33 Dose: 200 mls/hr Vancomycin HCl 1 gm/ Sodium (Chloride) 250 mls @ 166.7 mls/hr IVPB Q24H [facility]; Protocol Last Admin: 09/13/18 19:17 Dose: 166.7 mls/hr Methylprednisolone (Solu-Medrol) 40 mg IVP Q8H [facility] Last Admin: 09/14/18 09:26 Dose: 40 mg Montelukast Sodium (Singulair) 10 mg PO HS [facility] Last Admin: 09/13/18 21:12 Dose: 10 mg Pantoprazole Sodium (Protonix Ec Tab) 20 mg PO DAILY [facility] Last Admin: 09/14/18 09:26 Dose: 20 mg - Labs Labs: 09/14/18 08:03 09/14/18 08:03 - Constitutional Appears: Non-toxic, No Acute Distress - Head Exam Head Exam: ATRAUMATIC, NORMOCEPHALIC - Eye Exam Eye Exam: EOMI, Normal appearance - ENT Exam ENT Exam: Mucous Membranes Moist - Neck Exam Neck Exam: Full ROM, Normal Inspection - Respiratory Exam Respiratory Exam: Decreased Breath Sounds, Clear to Ausculation Bilateral, NORMAL BREATHING PATTERN - Cardiovascular Exam Cardiovascular Exam: REGULAR RHYTHM, +S1, +S2 - GI/Abdominal Exam GI & Abdominal Exam: Soft, Normal Bowel Sounds. absent: Guarding, Tenderness, Hyperactive Bowel Sounds, Rebound - Extremities Exam Extremities Exam: absent: Pedal Edema - Neurological Exam Neurological Exam: Oriented x3 - Psychiatric Exam Psychiatric exam: Normal Mood - Skin Skin Exam: Dry, Intact Assessment and Plan - Assessment and Plan (Free Text) Assessment: 68 year old female with a PMH of HFrEF, bronchiectasis. Abdominal CT showed a small pneumothorax. Pulmonary team was consulted for bronchiectasis and pneumothorax. Plan: Cystic Bronchiectasis Continue current antibiotic therapy of Vanc/Zosyn Continue duoneb, Breo, singular, Mucinex, and IV steriods Continue high flow oxygen. Continue Lasix 20 mg daily Possible tissue bronchoscope (CT guided vs surgical vs bronch), spoke with patient about the benefit and risks of each procedure in detail. Recommended that she speak to her son and primary team to make an informed decision. Concern for tissue biopsy as patient has previous pneumothorax due to destruction of lung parenchyma Etiology remains unknown (IPF concern) Acute pneumothorax CXR 09/12: pneumothorax improved continue high flow O2 Consider ICU transfer if patient continues to deteriorate on high flow PGY-1 Cruz Alatorre d/w Dr. Bashir
--- NOTE | 2018-09-14 13:29 | RAD ---
HISTORY: shortness of breathe COMPARISON: Chest x-ray performed 09/12/18, CT chest without contrast performed 09/11/18 TECHNIQUE: Chest, one view. FINDINGS: LUNGS: Persistent multifocal airspace disease. Lucency at the base of the left hemithorax of uncertain significance. No large pleural effusion. CARDIOVASCULAR: Cardiomegaly. OSSEOUS STRUCTURES: Degenerative changes. VISUALIZED UPPER ABDOMEN: Unremarkable. OTHER FINDINGS: None. IMPRESSION: Persistent multifocal airspace disease. Lucency at the base of the left hemithorax of uncertain significance. Upon review of CT of the chest performed 09/11/18 this is suspected to reflect air within left upper quadrant bowel loop with exaggerated peer insert due to semi-erect positioning. Recommend clinical correlation as alternatives including loculated pneumothorax or abdominal free air considered less likely but cannot be excluded. Recommend chest PA and lateral for further evaluation. Findings discussed with KELLY Walker on 09/14/18 at 1:20 p.m.
--- NOTE | 2018-09-14 15:41 | CP.PCM.PN ---
Subjective - Date & Time of Evaluation Date of Evaluation: 09/14/18 Time of Evaluation: 07:10 - Subjective Subjective: Nephro Progress Note for Dr. Angélica Paul DO, PGY-3 Patient seen and examined at bedside. Currently remains on high-flow nasal canula for O2 supplementation. Reports overall feeling improved, less coughing, and no shortness of breath at rest currently. Reports urinating without issue, no dysuria, hematuria, or incontinence. Remains concerned about any procedures for her lung findings. Denies dizziness, headache, vision changes, nausea, emesis, diarrhea. Objective - Vital Signs/Intake and Output Vital Signs (last 24 hours): Temp Pulse Resp BP Pulse Ox 97.8 F 108 H 16 109/82 97 09/14/18 07:00 09/14/18 08:24 09/14/18 11:14 09/14/18 09:26 09/14/18 07:00 Intake and Output: 09/14/18 09/14/18 06:59 18:59 Intake Total 450 770 Balance 450 770 - Medications Medications: Current Medications Acetylcysteine (Acetylcysteine 20%) 4 ml INH Q4H [facility] Last Admin: 09/14/18 11:14 Dose: 4 ml Albuterol/Ipratropium (Duoneb 3 Mg/0.5 Mg (3 Ml) Ud) 3 ml INH RQ4 [facility] Last Admin: 09/14/18 11:13 Dose: 3 ml Benzonatate (Tessalon Perles) 100 mg PO TID [facility] Last Admin: 09/14/18 14:04 Dose: 100 mg Carvedilol (Coreg) 3.125 mg PO BID [facility] Last Admin: 09/14/18 09:26 Dose: 3.125 mg Fluticasone/Vilanterol (Breo Ellipta 100-25 Mcg Inh) 1 puff INH RQD [facility] Last Admin: 09/14/18 08:21 Dose: 1 puff Furosemide (Lasix) 20 mg PO DAILY [facility] Last Admin: 09/14/18 09:26 Dose: 20 mg Guaifenesin (Mucinex La) 600 mg PO BID [facility] Last Admin: 09/14/18 09:26 Dose: 600 mg Piperacillin Sod/Tazobactam (Sod 3.375 gm/ Sodium Chloride) 100 mls @ 200 mls/hr IVPB Q6H [facility]; Protocol Last Admin: 09/14/18 13:33 Dose: 200 mls/hr Vancomycin HCl 1 gm/ Sodium (Chloride) 250 mls @ 166.7 mls/hr IVPB Q24H [facility]; Protocol Last Admin: 09/13/18 19:17 Dose: 166.7 mls/hr Methylprednisolone (Solu-Medrol) 40 mg IVP Q8H [facility] Last Admin: 09/14/18 09:26 Dose: 40 mg Montelukast Sodium (Singulair) 10 mg PO HS [facility] Last Admin: 09/13/18 21:12 Dose: 10 mg Pantoprazole Sodium (Protonix Ec Tab) 20 mg PO DAILY [facility] Last Admin: 09/14/18 09:26 Dose: 20 mg - Labs Labs: 09/14/18 08:03 09/14/18 08:03 - Constitutional Appears: No Acute Distress, Cachectic, Chronically Ill, Other (Frail-appearing) - Head Exam Head Exam: ATRAUMATIC, NORMAL INSPECTION, NORMOCEPHALIC - Eye Exam Eye Exam: EOMI, Normal appearance. absent: Conjunctival injection, Scleral icterus Pupil Exam: absent: Irregular, Unequal - ENT Exam ENT Exam: Mucous Membranes Moist Additional comments: weaning high-flow NC - Neck Exam Neck Exam: Full ROM. absent: Thyromegaly - Respiratory Exam Respiratory Exam: absent: Accessory Muscle Use, Chest Wall Tenderness, Rales, Wheezes Additional comments: diffuse ronchi in all pal, L>R, decreased breath sounds at right lateral mid- field region not grossly tachypnic at time of exam, not acutely dyspnic with speech, but unable to take deep breaths for exam - Cardiovascular Exam Cardiovascular Exam: Tachycardia, REGULAR RHYTHM, +S1, +S2. absent: Irregular Rhythm, JVD - GI/Abdominal Exam GI & Abdominal Exam: Soft, Normal Bowel Sounds. absent: Distended, Firm, Guarding, Rigid, Tenderness - Extremities Exam Extremities Exam: Normal Capillary Refill (+2 radial and dorsalis pedis pulses bilaterally), Normal Inspection. absent: Pedal Edema, Tenderness - Neurological Exam Additional comments: awake and alert, follows all commands appropriately, moving all extremities spontaneously, no gross motor deficit appreciated - Psychiatric Exam Psychiatric exam: Anxious - Skin Skin Exam: Dry, Intact, Normal Color, Warm Assessment and Plan - Assessment and Plan (Free Text) Assessment: This is a 68 yo F with hx of chronic bronchietasis, HFrEF, and previously noted PTX who presented for diffuse epigastric pain, and was found to have hyp onatremia of 119. Nephro consulted for management of the hyponatremia. Plan: 1) Chronic bronchiectasis, possibly cystic bronchiectasis 2) HFrEF 3) Hx of right-sided partial PTX 4) Hyponatremia -Urine studies on admission suggestive of hypovolemic hyponatremia -Na 132 today, was 129 yesterday -corrected at rate of 6-8 per day, now off IVF and on fluid restriction -continue Lasix 20mg daily, but will worsen hypoNa if not compliant with fluid restriction Patient seen and examined with attending, Dr. Lindsay
--- NOTE | 2018-09-14 21:08 | CP.PCM.PCO ---
Physician Communication Note - Physician Communication Note Physician Communication Note: Please see above
--- NOTE | 2018-09-14 21:48 | CP.PCM.PN ---
Subjective - Date & Time of Evaluation Date of Evaluation: 09/14/18 Time of Evaluation: 07:00 - Subjective Subjective: events noted refusing CT no new positive cultures Objective - Vital Signs/Intake and Output Vital Signs (last 24 hours): Temp Pulse Resp BP Pulse Ox 97.6 F 121 H 18 119/77 95 09/14/18 16:00 09/14/18 18:39 09/14/18 21:35 09/14/18 16:00 09/14/18 16:00 Intake and Output: 09/14/18 09/15/18 18:59 06:59 Intake Total 770 Balance 770 - Medications Medications: Current Medications Acetylcysteine (Acetylcysteine 20%) 4 ml INH Q4H [facility] Last Admin: 09/14/18 20:42 Dose: 4 ml Albuterol/Ipratropium (Duoneb 3 Mg/0.5 Mg (3 Ml) Ud) 3 ml INH RQ4 [facility] Last Admin: 09/14/18 20:42 Dose: 3 ml Benzonatate (Tessalon Perles) 100 mg PO TID [facility] Last Admin: 09/14/18 17:35 Dose: 100 mg Carvedilol (Coreg) 3.125 mg PO BID [facility] Last Admin: 09/14/18 17:35 Dose: 3.125 mg Fluticasone/Vilanterol (Breo Ellipta 100-25 Mcg Inh) 1 puff INH RQD [facility] Last Admin: 09/14/18 08:21 Dose: 1 puff Furosemide (Lasix) 20 mg PO DAILY [facility] Last Admin: 09/14/18 09:26 Dose: 20 mg Guaifenesin (Mucinex La) 600 mg PO BID [facility] Last Admin: 09/14/18 17:35 Dose: 600 mg Piperacillin Sod/Tazobactam (Sod 3.375 gm/ Sodium Chloride) 100 mls @ 200 mls/hr IVPB Q6H [facility]; Protocol Last Admin: 09/14/18 17:35 Dose: 200 mls/hr Vancomycin HCl 1 gm/ Sodium (Chloride) 250 mls @ 166.7 mls/hr IVPB Q24H [facility]; Protocol Last Admin: 09/14/18 19:01 Dose: 166.7 mls/hr Methylprednisolone (Solu-Medrol) 40 mg IVP Q8H [facility] Last Admin: 09/14/18 17:35 Dose: 40 mg Montelukast Sodium (Singulair) 10 mg PO HS [facility] Last Admin: 09/14/18 21:17 Dose: 10 mg Pantoprazole Sodium (Protonix Ec Tab) 20 mg PO DAILY [facility] Last Admin: 09/14/18 09:26 Dose: 20 mg - Labs Labs: 09/14/18 08:03 09/14/18 08:03 - Constitutional Appears: No Acute Distress, Cachectic, Chronically Ill - Head Exam Head Exam: ATRAUMATIC, NORMAL INSPECTION, NORMOCEPHALIC - Eye Exam Eye Exam: EOMI, Normal appearance, PERRL Pupil Exam: NORMAL ACCOMODATION, PERRL - ENT Exam ENT Exam: Mucous Membranes Moist, Normal Exam - Neck Exam Neck Exam: Full ROM, Normal Inspection. absent: Lymphadenopathy - Respiratory Exam Respiratory Exam: Decreased Breath Sounds, Prolonged Expiratory Phase, Rales, Rhonchi - Cardiovascular Exam Cardiovascular Exam: REGULAR RHYTHM, +S1, +S2. absent: Murmur - GI/Abdominal Exam GI & Abdominal Exam: Distended, Soft. absent: Tenderness - Rectal Exam Rectal Exam: Deferred - Exam Exam: NORMAL INSPECTION - Extremities Exam Extremities Exam: Full ROM, Normal Capillary Refill, Normal Inspection. absent: Joint Swelling, Pedal Edema - Back Exam Back Exam: NORMAL INSPECTION - Neurological Exam Neurological Exam: Alert, Awake, CN II-XII Intact, Normal Gait, Oriented x3 - Psychiatric Exam Psychiatric exam: Depressed - Skin Skin Exam: Dry, Intact, Normal Color, Warm Assessment and Plan (1) Bronchiectasis with (acute) exacerbation Status: Acute (2) Congestive heart failure Status: Acute - Assessment and Plan (Free Text) Assessment: no new cultures IV rx in progress poor prognosis
[2018-09-15] MEDS: Piperacillin/Tazobact 3.375 GM in Sodium Chloride 100 ML IVPB SCH ×4 (00:13→17:36)
[2018-09-15] MEDS: Albuterol-Ipratrop 3 mg / 0.5 (3 ml) UD INH SCH ×5 (01:22→21:12)
[2018-09-15] MEDS: Acetylcysteine 20% Inhal Soln (4ml) INH SCH ×5 (01:22→21:12)
[2018-09-15] MEDS: MethylPREDNISolone 40 mg Vial IVP SCH ×3 (01:27→17:37)
[2018-09-15] MEDS: Fluticasone-Vilanterol 100/25mcg Diskus INH SCH (07:57)
[2018-09-15 08:44] LABS: HEMOGLOBIN 11.1 g/dL (11.0-16.0); LYMPH # 0.5 K/uL (1.0-4.3); LYMPH % 3.1 % (20.0-40.0); MEAN CELL VOLUME 78.4 fL (81.0-99.0); MEAN CORPUSCULAR HEMOGLOBIN 26.1 pg (27.0-31.0); MEAN CORPUSCULAR HGB CONC 33.3 g/dL (33.0-37.0); MEAN PLATELET VOLUME 9.5 fL (7.2-11.7); MONO % 6.1 % (0.0-10.0); NEUT # 15.3 K/uL (1.8-7.0); NEUT % 90.8 % (50.0-75.0); PLATELET COUNT 301 K/uL (130-400); RBC 4.24 Mil/uL (3.80-5.20); RED CELL DISTRIBUTION WIDTH 16.4 % (11.5-14.5); WHITE BLOOD COUNT 16.9 K/uL (4.8-10.8)
[2018-09-15 08:58] LABS: ALB/GLOB RATIO 1.1 (1.0-2.1); ALBUMIN 3.3 g/dL (3.5-5.0)
[2018-09-15 08:59] LABS: ALT/SGPT 37 U/L (9-52); AST/SGOT 64 U/L (14-36); BLOOD UREA NITROGEN 27 mg/dL (7-17); CALCIUM 9.7 mg/dl (8.6-10.4); GFR NON-AFRICAN AMERICAN > 60
--- NOTE | 2018-09-15 09:46 | CP.PCM.PN ---
Subjective - Date & Time of Evaluation Date of Evaluation: 09/15/18 Time of Evaluation: 09:39 - Subjective Subjective: Pulmonary Progress Note for Dr. Bashir's service S/E at bedside Patient was tachycardic and refused all medical tests and some parts of physical examination Pulm Resident expressed much concern based on vitals during examination, includi ng tachypnea, tachycardia, and hypoxia Patient stated that she did not want any tests done today and primary team was called to speak with patient regarding poor current status PET CARE ATTENDANT was called and primary team responded Transferred to ICU and was intubated for hypoxic respiratory failure ROS: + abdominal pain, palpitations Objective - Vital Signs/Intake and Output Vital Signs (last 24 hours): Temp Pulse Resp BP Pulse Ox 97.9 F 117 H 20 154/107 H 92 L 09/15/18 08:00 09/15/18 08:25 09/15/18 08:20 09/15/18 08:00 09/15/18 08:00 Intake and Output: 09/15/18 09/15/18 06:59 18:59 Intake Total 550 Balance 550 - Medications Medications: Current Medications Acetylcysteine (Acetylcysteine 20%) 4 ml INH Q4H [facility] Last Admin: 09/15/18 04:40 Dose: Not Given Albuterol/Ipratropium (Duoneb 3 Mg/0.5 Mg (3 Ml) Ud) 3 ml INH RQ4 [facility] Last Admin: 09/15/18 07:53 Dose: 3 ml Benzonatate (Tessalon Perles) 100 mg PO TID [facility] Last Admin: 09/14/18 17:35 Dose: 100 mg Carvedilol (Coreg) 3.125 mg PO BID [facility] Last Admin: 09/14/18 17:35 Dose: 3.125 mg Fluticasone/Vilanterol (Breo Ellipta 100-25 Mcg Inh) 1 puff INH RQD [facility] Last Admin: 09/15/18 07:57 Dose: 1 puff Furosemide (Lasix) 20 mg PO DAILY [facility] Last Admin: 09/14/18 09:26 Dose: 20 mg Guaifenesin (Mucinex La) 600 mg PO BID [facility] Last Admin: 09/14/18 17:35 Dose: 600 mg Piperacillin Sod/Tazobactam (Sod 3.375 gm/ Sodium Chloride) 100 mls @ 200 mls/hr IVPB Q6H [facility]; Protocol Last Admin: 09/15/18 05:45 Dose: 200 mls/hr Vancomycin HCl 1 gm/ Sodium (Chloride) 250 mls @ 166.7 mls/hr IVPB Q24H [facility]; Protocol Last Admin: 09/14/18 19:01 Dose: 166.7 mls/hr Methylprednisolone (Solu-Medrol) 40 mg IVP Q8H [facility] Last Admin: 09/15/18 01:27 Dose: 40 mg Montelukast Sodium (Singulair) 10 mg PO HS [facility] Last Admin: 09/14/18 21:17 Dose: 10 mg Pantoprazole Sodium (Protonix Ec Tab) 20 mg PO DAILY [facility] Last Admin: 09/14/18 09:26 Dose: 20 mg - Labs Labs: 09/15/18 08:34 09/15/18 08:34 - Constitutional Appears: In Acute Distress - Head Exam Head Exam: NORMAL INSPECTION, NORMOCEPHALIC - Eye Exam Eye Exam: EOMI, Normal appearance - ENT Exam ENT Exam: Mucous Membranes Dry - Respiratory Exam Respiratory Exam: Accessory Muscle Use, Decreased Breath Sounds, Respiratory Distress. absent: Wheezes, NORMAL BREATHING PATTERN Additional comments: tachypenic, abdominal breathing present - Cardiovascular Exam Cardiovascular Exam: Tachycardia, REGULAR RHYTHM, +S1, +S2 - GI/Abdominal Exam GI & Abdominal Exam: Tenderness, Normal Bowel Sounds. absent: Soft - Extremities Exam Extremities Exam: Normal Inspection. absent: Calf Tenderness, Pedal Edema - Neurological Exam Neurological Exam: Awake, Oriented x3 - Psychiatric Exam Psychiatric exam: Normal Affect, Normal Mood - Skin Skin Exam: Dry, Intact, Normal Color Assessment and Plan - Assessment and Plan (Free Text) Assessment: 68 year old female with a PMH of HFrEF, bronchiectasis. Abdominal CT showed a small pneumothorax. Pulmonary team was consulted for bronchiectasis and pneumothorax. Intubated on 09-15 after patient was noted to having increased respiratory distress Plan: Hypoxic respiratory failure ABG consistent with hypoxic respiratory failure Intubated/Sedated; further management as per ICU team Cystic Bronchiectasis Continue current antibiotic therapy of Vanc/Zosyn Continue duoneb, Breo, singular, Mucinex, and IV steriods Continue high flow oxygen. Continue Lasix 20 mg daily Possible tissue bronchoscope (CT guided vs surgical vs bronch), spoke with patient about the benefit and risks of each procedure in detail. Recommended that she speak to her son and primary team to make an informed decision. Concern for tissue biopsy as patient has previous pneumothorax due to destruction of lung parenchyma Etiology remains unknown (IPF concern vs immunodeficiency) Acute pneumothorax CXR 09/12: pneumothorax improved Repeat imaging on 09-15 shows new pneumothorax on left side, CT chest pending, CT surgery consulted for worsening pnuemothorax Consider Chest tube Intubated/Sedated see above Disposition: Noncompliant patient; increased respiratory distress on 09-15; family at bedside, primary team speaking with them for management; ICU managment and CT surgical input appreciated PGY-1 Cruz Alatorre d/w Dr. Bashir
--- NOTE | 2018-09-15 09:48 | PCM.RRT ---
<Deniz Padillae - Last Filed: 09/15/18 09:51> ANALYTICS CONSULTANT Nurses Assessment - Situation Date: 09/15/18 Time ANALYTICS CONSULTANT was called: 09:40 ANALYTICS CONSULTANT Responder Arrival Time:: 09:41 ANALYTICS CONSULTANT Location:: 5S Med/Surg ANALYTICS CONSULTANT Reason for Call: O2 Saturation below 90% - Respiratory ANALYTICS CONSULTANT Delivery Method: High-Flow @% (100) - Ventilator Settings FIO2 (% Oxygen): 100 - Diagnostic Test Ordered EKG: Yes Chest X-Ray: Yes - Vital Signs Vital Signs: 98, 144, 173/127 ,99%O2 98T, 140HR, 218/136BP, <Eva Abarca P - Last Filed: 09/15/18 13:11> ANALYTICS CONSULTANT Nurses Assessment - Situation ANALYTICS CONSULTANT Reason for Call: Tachycardia, Hypertension, Respiratory Distress - IV IV Inserted during ANALYTICS CONSULTANT?: No - Respiratory Oxygen Flow Rate: 40 Received Nebulizer Treatments: No Was the Patient Ventilated with Bag/Mask 100% O2?: Yes Secretions Suctioned?: No Was the Patient Intubated?: Yes Was the Patient Placed on a Ventilator?: Yes - Vital Signs Vital Signs: Rapid Response Vital Sign Blood Pressure 173/127 Pulse Rate 143 Respiratory Rate 24 Temperature 97.8 F Oxygen Saturation 90 - Vital Signs at end of ANALYTICS CONSULTANT Vital Signs at end of ANALYTICS CONSULTANT: Rapid Response End Vital Sign Blood Pressure 173/111 Pulse Rate 136 Respiratory Rate 28 Temperature 98.1 F O2 Sat by Pulse Oximetry 93 I.Reason for ANALYTICS CONSULTANT - A) Acute Change in Patient: (Select all that apply): Staff member or family is worried about patient - Neurological Status (Select all that apply): Verbal, Follows Commands - Respiratory Oxygen Delivery Method: High-Flow @% <Nikki Hill V - Last Filed: 09/15/18 14:10> ANALYTICS CONSULTANT Nurses Assessment - Situation Date: 09/15/18 Time ANALYTICS CONSULTANT was called: 09:38 ANALYTICS CONSULTANT Responder Arrival Time:: 09:38 ANALYTICS CONSULTANT Location:: 5S Med/Surg - Diagnostic Test Ordered EKG: Yes Chest X-Ray: Yes - Stat Labs Ordered ANALYTICS CONSULTANT Stat Labs Ordered: TROPONIN, LACTIC ACID CPR started during ANALYTICS CONSULTANT?: No - Vital Signs Vital Signs: Rapid Response Vital Sign Blood Pressure 173/127 Pulse Rate 143 Respiratory Rate 24 Temperature 97.8 F Oxygen Saturation 90 - Stacey Coma Scale Coma Scale Eye Opening: Spontaneous Coma Scale Motor: Obeys Commands Movement Coma Scale Verbal: Oriented Coma Scale Total: 15 - Time ANALYTICS CONSULTANT Ended Time ANALYTICS CONSULTANT Ended: 10:40 - Vital Signs at end of ANALYTICS CONSULTANT Vital Signs at end of ANALYTICS CONSULTANT: Rapid Response End Vital Sign Blood Pressure 173/111 Pulse Rate 136 Respiratory Rate 28 Temperature 98.1 F O2 Sat by Pulse Oximetry 93 - Recommendations 5) ANALYTICS CONSULTANT Level of Care Recommendations: Transfer to ICU Notifications: Attending Physician, Consultations, Family or Designated Caregiver I.Reason for ANALYTICS CONSULTANT - A) Acute Change in Patient: (Select all that apply): Acute change in SpO2 less - Constitutional Appears: In Acute Distress, Unkempt, Agitated, Cachectic - Head Head Exam: NORMAL INSPECTION - Eyes Eye Exam: EOMI - Respiratory Exam Respiratory Exam: Decreased Breath Sounds, Rales, Respiratory Distress. absent: Clear to Ausculation Bilateral, Wheezes, Stridor - Cardiovascular Exam Cardiovascular Exam: Tachycardia, +S1, +S2 - GI/Abdominal Exam GI & Abdominal Exam: Soft, Normal Bowel Sounds. absent: Distended, Firm, Guarding, Rigid, Tenderness, Hyperactive Bowel Sounds, Rebound - Neurological Exam Neurological Exam: Alert, Awake, Oriented x3 Attending/Attestation - Attestation I have personally seen and examined this patient.: Yes I have fully participated in the care of the patient.: Yes I have reviewed all pertinent clinical information, including history, physical exam and plan: Yes Notes (Text): Brief hospitalist note Rapid response called at 938 for shortness of breath acute distress tachycardia. 68-year-old female with suspected fibrotic lungs bronchial stasis not ischemic cardiomyopathy noted to be tachycardic about 150s in acute distress with accessory muscle use. Patient overnight had refused chest x-ray as well as CT chest given partial chest x-ray completed yesterday. However at bedside patient is noted to be very scared and anxious as well as abnormal lung sounds. Patient repeated portable chest at rapid response particularly abnormal compared to her prior chest x-rays. Patient oxygenation going between 90-93% and can go as low as 86% on patient agrees with plan. We are unable to give BiPAP given that patient is very prone to pneumothorax. Patient EKG at rapid response noted for ischemic changes V1 V2. We have consulted ICU for impending acute respiratory failure. Patient accepted to the unit. Critical care time about 30 minutes. Patient's son at bedside Edd lora updated him in terms of the course of mother's care. He is aware that patient's that patient's prognosis is poor he is aware that patient's lung quality is a poor given the bronchial stasis is likely fibrosis. He is aware that the patient's heart is weak from heart failure and he is aware that if the patient is intubated intubated he will be likely very difficult to come off the vent. Patient accompanied to the unit discussed with home Dr. Donis patient was intubated. We will repeat blood work including BAUTISTA ESR CRP immunoglobulin IgA IgE IV daily. Discussed with palliative care at bedside who will follow up with family as well. Assessment/Plan 1. Acute Respiratory Failure Cystic Bronchiectasis, chronic Healthcare associated pneumonis Fibrosis Pneumothorax Assessment/Plan * Pulmonology, Dr. Bashir, consulted help appreciated * CT chest (08/22/18): areas of dense consolidation/atelectasis in the left lung base; progressed 03/01/16. Extensive cystic changes seen throughout the left lung and less so the right upper lobe possibly representing cystic bronchiectasis. Left sided effusion possibly with some loculated components. mucous plugging changes or compressive effects on the proximal branches of the left upper and lower lobe of bronchi. mild fatty hepatic infiltration. gastric wall thickening in part of incomplete distension. markedly distended urinary bladder, rule out urinary retention * ESRL 113, CRP: 193.80, pending BAUTISTA * Patient had refused PA chest x-ray yesterday. Patient refused CT chest overnight. Patient had ABG completed this morning with elevated CO2. Rapid response called September 15, 2018 for acute respiratory distress, tachycardia as well as patient did not look well. Patient noted accessory muscle use. We have gotten a chest x-ray for the patient patient is aware that given the respiratory distress that she would likely need to be intubated I have discussed with patient's son at bedside Edd who is aware that patient will likely need to be intubated since we are at maximum support prior to intubation. Patient transferred to the intensive care unit intubated and will repeat workup plan is for possible bronchoscopy tomorrow with Dr. Bashir on September 16, 2018. * Recent admission labs (08/22-09/03) * ANCA screen is negative * Proteinase 3 <1.0 * myeloperoxidase <1.0 * b DGlucan negative * indeterminate quantiferon * Aspergillus flavus negative * Aspergillus fumigatus negative * Aspergillus niger negative * HIV negative * influenza negative * Hepatitis negative * Rheumatoid factor IgM elevated at 80 * Blood culture (08/22/18): no growth after 5 days X2 * Myobacterial culture (08/23/18): negative for AFB. prelim * Myobacterial culture (08/25/18): negative for AFB. prelim * Myobacterial culture (08/28/18): negative for AFB. prelim * Mycobacterium complex PCR negative * hisplasmosis AB negative, MARY level normal * continue chest physiotherapy, Duonebs q4, singulair 10 mg PO QHS, Breo ellipta once daily, Mucinex 600 mg PO BID, O2 High flow oxygen * Solumedrol 40mg IV Q8H (active since 09/12/18) * CT surgery consult pending family decision regarding open lung biopsy/FNA/bronchoscopy * Son to come later today * ID Dr Land consulted- agrees w/ empiric abx * Patient is high risk given lung and cardiac status for further procedures Hyponatremia (resolved) * [facility] * Improved with PO fluid restriction, should continue the same with goal <1.5L per day; awaiting repeat urine osm; * normalized Abdominal pain, resolved * Likely due to potassium chloride medications pt was discharged with * Abdominal CT with IV contrast prelim reading shows ileus vs developing enteritis; f/u official reading * Leukocytosis likely due to steroid treatment, pt afebrile * Protonix 20 mg PO daily * Given Cipro 400 mg IVPB x 1, Flagyl 500 mg IVPB x 1, Pepcid 20 mg PO, Maalox 30 mL PO in the ED Heart Failure with Reduced Ejection Fraction, chronic * Echocardiogram (08/27/18) left ventricular systolic function is severely impaired. ejection fraction is 25-30%. atrial septum aneurysmal. possible asd? no aortic regurgitation is present. mitral regurgitation is mild to moderate. mild tricuspid regurgitation. mild pulmonary hypertension. * Cardiac cath showed nonischemic cardiomyopathy. Dr. Pedraza, cardiology, evaluated the pt on last admission and recommended medical HFrEF management rather than lifevest/aicd placement. * Continue Carvedilol 3.125 mg PO BID * Losartan 25 mg PO on hold, Aldactone 12.5 mg PO once daily on hold (given borderline potassium level) * Lasix 20mg po daily Leukocytosis * Influenza negative * Zosyn 3.375g IVPB Q6H (active since 09/11/18) * Vancomycin 1 gram IVPB Q24h (active since 09/11/18) * Solumedrol 40mg IVPB Q8H Cachexia * 30lb weight loss in 2 months * Almond Huller referral * Ensure Compact TID (660 kcals, 27 gm protein) PPx * DVT ppx: Heparin 5000u SC q12 (refusing), SCDs * GI: Protonix 20mg po daily * Diet: HHD * Aspiration precautions due to increased mucus production * Full code * Palliative care on board * Intubated 09/15/18 Disposition: ANALYTICS CONSULTANT 09/15/18 events noted above, requires critical care and intubation. Further care per ICU and pulmonary on board
[2018-09-15 10:15] LABS: ABG ALLEN TEST PO; ARTERIAL BLOOD GAS HCO3 29.6 mmol/L (21-28); ARTERIAL BLOOD GAS O2 SAT 95.7 % (95-98); ARTERIAL BLOOD GAS PCO2 38 mm/Hg (35-45); ARTERIAL BLOOD GAS PO2 66 mm/Hg (80-100); ARTERIAL BLOOD GAS TCO2 30.8 mmol/L (22-28)
[2018-09-15 10:28] LABS: BANDS 2 % (0-2); LYMPHOCYTE 3 % (20-40); MONOCYTE 7 % (0-10); NEUTROPHIL 88 % (50-75); TOTAL CELLS COUNTED 100
[2018-09-15 10:29] LABS: ANISOCYTOSIS SLIGHT; PLATELET ESTIMATE NORMAL (NORMAL)
[2018-09-15] MEDS ORDERED: Etomidate 20 mg/10ml Inj IV ONE (10:30)
[2018-09-15] MEDS ORDERED: Succinylcholine Chloride 20 mg/ml Syr (5 ml) IV ONE (10:35)
[2018-09-15] MEDS: Propofol 10 mg/ml 1,000 MG/100 ML VIAL IV PRN ×2 (10:46→17:37)
--- NOTE | 2018-09-15 10:53 | RAD ---
Date of service: 09/15/2018 HISTORY: shortness of breathe COMPARISON: 09/14/2018 TECHNIQUE: 1 view obtained. FINDINGS: LUNGS: Extensive patchy airspace opacities throughout each lung are present. The right upper lobe coalescing subsegmental consolidation is unchanged. Nodular coalescing density in the left mid lung zone is as before. The mottled densities throughout both lungs is also compatible with the extensive multifocal bronchiectasis Left paratracheal increased soft tissue density most consistent with some tortuous prominent left aortic knob and its branches long the left pulmonary artery study is rotated slightly towards the left. This appearance is similar. PLEURA: No significant pleural effusion identified, n a on the chest without contrast study from 09/11/2018 a small interval right-sided pneumothorax was referenced. A right pleural reflection is difficult to ascertain on this exam. The CT being more sensitive. The gas like density at the left lung base probably relates to a left colonic gas-filled loop haustral markings are faintly perceived likely beneath an asymmetrically elevated posterior left hemidiaphragm. No significant change in appearance with the prior chest x-ray is noted. CARDIOVASCULAR: No aortic atherosclerotic calcification present. Evaluation heart size limited. Assessing the pulmonary vasculature is difficult due to the extensive mottled patchy airspace opacities throughout both lungs. OSSEOUS STRUCTURES: Bilateral shoulder arthrosis. Right cervical C7 rib. VISUALIZED UPPER ABDOMEN: As above OTHER FINDINGS: None. IMPRESSION: Extensive diffuse patchy mottled airspace opacities-a diffuse extensive bronchiectasis along with multifocal patchy infiltrates are inferred. Other findings as above. The recent CT depiction of a right sided small pneumothorax is difficult to perceive on this exam.
[2018-09-15 10:55] LABS: CK-MB 3.55 ng/mL (0.0-3.38); TROPONIN I 0.023 ng/mL (0.00-0.120)
--- NOTE | 2018-09-15 11:02 | CP.PCM.PN ---
<Manuel Paul - Last Filed: 09/15/18 12:12> Subjective - Date & Time of Evaluation Date of Evaluation: 09/15/18 Time of Evaluation: 07:15 - Subjective Subjective: Nephro Progress Note for Dr. Lindsay Service Manuel Paul DO, PGY-3 Patient seen and examined at bedside. Currently remains on high-flow nasal canula for O2 supplementation. Complaining of sharp abdominal pain, new onset, which is causing headache. Denies nausea/emesis. Initially mildly tachypnic and tachycardic (114 HR measured by senior grant writer), but later became further tachycardic to 150's and further tachypnic, so AUTOMATION QA ANALYST was called, patient later intubated and transferred to ICU. Objective - Vital Signs/Intake and Output Vital Signs (last 24 hours): Temp Pulse Resp BP Pulse Ox 97.9 F 117 H 20 154/107 H 92 L 09/15/18 08:00 09/15/18 08:25 09/15/18 08:20 09/15/18 08:00 09/15/18 08:00 Intake and Output: 09/15/18 09/15/18 06:59 18:59 Intake Total 550 Balance 550 - Medications Medications: Current Medications Acetylcysteine (Acetylcysteine 20%) 4 ml INH Q4H [facility] Last Admin: 09/15/18 04:40 Dose: Not Given Albuterol/Ipratropium (Duoneb 3 Mg/0.5 Mg (3 Ml) Ud) 3 ml INH RQ4 [facility] Last Admin: 09/15/18 07:53 Dose: 3 ml Benzonatate (Tessalon Perles) 100 mg PO TID [facility]NA Last Admin: 09/14/18 17:35 Dose: 100 mg Carvedilol (Coreg) 3.125 mg PO BID TANA Last Admin: 09/14/18 17:35 Dose: 3.125 mg Fluticasone/Vilanterol (Breo Ellipta 100-25 Mcg Inh) 1 puff INH RQD [facility] Last Admin: 09/15/18 07:57 Dose: 1 puff Furosemide (Lasix) 20 mg PO DAILY [facility] Last Admin: 09/14/18 09:26 Dose: 20 mg Guaifenesin (Mucinex La) 600 mg PO BID [facility] Last Admin: 09/14/18 17:35 Dose: 600 mg Piperacillin Sod/Tazobactam (Sod 3.375 gm/ Sodium Chloride) 100 mls @ 200 mls/hr IVPB Q6H [facility]; Protocol Last Admin: 09/15/18 05:45 Dose: 200 mls/hr Vancomycin HCl 1 gm/ Sodium (Chloride) 250 mls @ 166.7 mls/hr IVPB Q24H [facility]; Protocol Last Admin: 09/14/18 19:01 Dose: 166.7 mls/hr Propofol (Diprivan) 1,000 mg in 100 mls @ 1.138 mls/hr IV .Q24H PRN; Protocol PRN Reason: TITRATE PER MD ORDER Last Admin: 09/15/18 10:46 Dose: 10 mcg/kg/min, 2.275 mls/hr Lactobacillus Acidophilus (Lactobacillus) 1 cap PO BID [facility] Methylprednisolone (Solu-Medrol) 40 mg IVP Q8H [facility] Last Admin: 09/15/18 01:27 Dose: 40 mg Montelukast Sodium (Singulair) 10 mg PO HS [facility] Last Admin: 09/14/18 21:17 Dose: 10 mg Pantoprazole Sodium (Protonix Ec Tab) 20 mg PO DAILY [facility] Last Admin: 09/14/18 09:26 Dose: 20 mg - Labs Labs: 09/15/18 08:34 09/15/18 08:34 - Additional Findings Additional findings: - Constitutional Appears: In Acute Distress (tachypnic, tachycardic, anxious), Cachectic, Chronically Ill, Other (Frail-appearing) - Head Exam Head Exam: ATRAUMATIC, NORMAL INSPECTION, NORMOCEPHALIC - Eye Exam Eye Exam: EOMI, Normal appearance. absent: Conjunctival injection, Scleral icterus Pupil Exam: absent: Irregular, Unequal - ENT Exam ENT Exam: Mucous Membranes Moist, wearing high-flow NC - Neck Exam Neck Exam: absent: Thyromegaly - Respiratory Exam Respiratory Exam: tachypnic, diffuse ronchi in all pal, no appreciable wheezing, not able to take deep breaths due to rapid rate of breathing, but not dyspnic with speech - Cardiovascular Exam Cardiovascular Exam: Tachycardia (Rate 114), REGULAR RHYTHM, +S1, +S2. absent: Irregular Rhythm, JVD - GI/Abdominal Exam GI & Abdominal Exam: Soft, new moderate tenderness (worse with palpation) at and superior to epigastric region but without lateral radiation - Extremities Exam Extremities Exam: Normal Capillary Refill (+2 radial and dorsalis pedis pulses bilaterally), Normal Inspection. absent: Pedal Edema, Tenderness - Neurological Exam awake and alert, follows all commands appropriately, moving all extremities spontaneously, no gross motor deficit appreciated - Psychiatric Exam Psychiatric exam: Very Anxious - Skin Skin Exam: Dry, Intact, Normal Color, Warm Assessment and Plan - Assessment and Plan (Free Text) Assessment: This is a 68 yo F with hx of chronic bronchietasis, HFrEF, and previously noted PTX who presented for diffuse epigastric pain, and was found to have hyponatremia of 119. Nephro consulted for management of the hyponatremia. Plan: 1) Chronic bronchiectasis, possibly cystic bronchiectasis 2) HFrEF 3) Hx of right-sided partial PTX 4) Hyponatremia 5) Acute respiratory failure s/p intubation -Urine studies on admission suggestive of hypovolemic hyponatremia -Na improved to 137 today -Now intubated, goal remains fluid restriction of 1.5L while on Lasix Patient reviewed and discussed with attending, Dr. Lindsay <Odell Lindsay - Last Filed: 09/16/18 08:23> Objective - Vital Signs/Intake and Output Vital Signs (last 24 hours): Temp Pulse Resp BP Pulse Ox 98.3 F 114 H 18 90/58 L 97 09/16/18 08:00 09/16/18 08:02 09/16/18 08:02 09/16/18 08:02 09/16/18 08:02 Intake and Output: 09/16/18 09/16/18 06:59 18:59 Intake Total 2179.9 93.1 Output Total 1443 30 Balance 736.9 63.1 - Medications Medications: Current Medications Acetylcysteine (Acetylcysteine 20%) 4 ml INH RQ4 [facility] Last Admin: 09/16/18 03:04 Dose: 4 ml Albuterol/Ipratropium (Duoneb 3 Mg/0.5 Mg (3 Ml) Ud) 3 ml INH RQ4 [facility] Last Admin: 09/16/18 03:04 Dose: 3 ml Carvedilol (Coreg) 3.125 mg PO BID [facility] Last Admin: 09/15/18 17:36 Dose: 3.125 mg Enoxaparin Sodium (Lovenox) 40 mg SC Q12 [facility] Last Admin: 09/15/18 23:45 Dose: 40 mg Fluticasone/Vilanterol (Breo Ellipta 100-25 Mcg Inh) 1 puff INH RQD [facility] Last Admin: 09/15/18 07:57 Dose: 1 puff Furosemide (Lasix) 20 mg PO DAILY [facility] Last Admin: 09/15/18 13:25 Dose: 20 mg Guaifenesin (Mucinex La) 600 mg PO BID [facility] Last Admin: 09/15/18 17:35 Dose: 600 mg Piperacillin Sod/Tazobactam (Sod 3.375 gm/ Sodium Chloride) 100 mls @ 200 mls/hr IVPB Q6H [facility]; Protocol Last Admin: 09/16/18 05:30 Dose: 200 mls/hr Vancomycin HCl 1 gm/ Sodium (Chloride) 250 mls @ 166.7 mls/hr IVPB Q24H [facility]; Protocol Last Admin: 09/15/18 17:36 Dose: 166.7 mls/hr Propofol (Diprivan) 1,000 mg in 100 mls @ 1.138 mls/hr IV .Q24H PRN; Protocol PRN Reason: TITRATE PER MD ORDER Last Titration: 09/16/18 08:00 Dose: 30 mcg/kg/min, 6.826 mls/hr Fentanyl Citrate 2,500 mcg/ (Sodium Chloride) 250 mls @ 8.26 mls/hr IV .Q24H [facility]; Protocol Last Titration: 09/16/18 02:00 Dose: 3 mcg/kg/hr, 12.39 mls/hr Lactobacillus Acidophilus (Lactobacillus) 1 cap PO BID [facility] Last Admin: 09/15/18 17:35 Dose: 1 cap Methylprednisolone (Solu-Medrol) 40 mg IVP Q8H [facility] Last Admin: 09/16/18 01:45 Dose: 40 mg Montelukast Sodium (Singulair) 10 mg PO HS [facility] Last Admin: 09/15/18 23:00 Dose: 10 mg Pantoprazole Sodium (Protonix Inj) 20 mg IVP DAILY [facility] - Labs Labs: 09/16/18 06:15 09/16/18 06:15 PT 13.3 SECONDS (9.7-12.2) H 09/15/18 12:23 INR 1.2 09/15/18 12:23 APTT 21 SECONDS (21-34) 09/15/18 12:23 Assessment and Plan (1) Hyponatremia Status: Acute (2) Heart failure with reduced ejection fraction Status: Chronic Attending/Attestation - Attestation I have personally seen and examined this patient.: Yes I have fully participated in the care of the patient.: Yes I have reviewed all pertinent clinical information, including history, physical exam and plan: Yes Notes (Text): Patient seen and examined; I agree with the resident's note as above with the following additions/edits: Patient with acute hypoxemic resp failure, worsening, requiring intubation today despite having been on high flow O2; electrolytes relatively stable, hypontremia resolving; patient getting diuresis with low dose lasix, can continue but need to monitor blood gas and avoid volume depletion; Will continue to follow lytes.
[2018-09-15 11:56] LABS: BASO # 0.1 K/uL (0.0-0.2); BASO % 0.4 % (0.0-2.0); HEMOGLOBIN 10.4 g/dL (11.0-16.0); LYMPH # 0.3 K/uL (1.0-4.3); LYMPH % 1.8 % (20.0-40.0); MEAN CELL VOLUME 78.5 fL (81.0-99.0); MEAN CORPUSCULAR HEMOGLOBIN 25.7 pg (27.0-31.0); MEAN CORPUSCULAR HGB CONC 32.8 g/dL (33.0-37.0); MEAN PLATELET VOLUME 9.4 fL (7.2-11.7); MONO # 1.4 K/uL (0.0-0.8); MONO % 8.3 % (0.0-10.0); NEUT # 14.8 K/uL (1.8-7.0); NEUT % 89.5 % (50.0-75.0); RBC 4.05 Mil/uL (3.80-5.20); RED CELL DISTRIBUTION WIDTH 16.8 % (11.5-14.5); WHITE BLOOD COUNT 16.5 K/uL (4.8-10.8)
--- NOTE | 2018-09-15 11:58 | RAD ---
Date of service: 09/15/2018 HISTORY: s/p intubation COMPARISON: 09/15/2018 9:[address] chest without contrast from 09/11/2018. FINDINGS: Endotracheal tube is low in position and terminates at the shaun. The nasogastric tube terminates in the stomach. LUNGS: There is pulmonary hyperinflation. There is redemonstration of diffuse interstitial thickening and honeycombing in both lungs with superimposed multifocal airspace disease. PLEURA: There is interval development of moderate left pneumothorax with compressive atelectasis of the left lower lobe. No right pleural effusion or pneumothorax. CARDIOVASCULAR: The heart is normal in size. No aortic atherosclerotic calcifications present. OSSEOUS STRUCTURES: Within normal limits for the patient's age. VISUALIZED UPPER ABDOMEN: Normal. OTHER FINDINGS: None. IMPRESSION: 1. Endotracheal tube is low in position and terminates at the shaun. Repositioning is recommended. Nasogastric tube terminates in the stomach. 2. Interval development of moderate left pneumothorax with compressive atelectasis of the left lower lobe. Critical findings were discussed with resident Marquez in the ICU on 09/15/2018 at 11:45 a.m.
[2018-09-15 12:20] LABS: ALBUMIN 3.1 g/dL (3.5-5.0); ALT/SGPT 50 U/L (9-52); AST/SGOT 90 U/L (14-36); BLOOD UREA NITROGEN 27 mg/dL (7-17); CALCIUM 9.3 mg/dl (8.6-10.4); GFR NON-AFRICAN AMERICAN > 60
[2018-09-15 12:22] LABS: IMMUNOGLOBULIN A 368.2 mg/dL (70.0-400.0); IMMUNOGLOBULIN G 869.4 mg/dL (700.0-1600.0); IMMUNOGLOBULIN M 101.6 mg/dL (40.0-230.0)
[2018-09-15 12:26] LABS: ARTERIAL BLOOD GAS HCO3 28.4 mmol/L (21-28); ARTERIAL BLOOD GAS O2 SAT 98.4 % (95-98); ARTERIAL BLOOD GAS PCO2 43 mm/Hg (35-45); ARTERIAL BLOOD GAS PH 7.44 (7.35-7.45); ARTERIAL BLOOD GAS PO2 89 mm/Hg (80-100); ARTERIAL BLOOD GAS TCO2 30.5 mmol/L (22-28)
[2018-09-15 12:47] LABS: INR 1.2; PROTHROMBIN TIME 13.3 SECONDS (9.7-12.2)
[2018-09-15] MEDS: guaiFENesin 600 mg ER Tab PO SCH ×2 (12:54→17:35)
[2018-09-15] MEDS: Pantoprazole 20 mg EC Tab PO SCH (12:54)
--- NOTE | 2018-09-15 13:19 | CP.PCM.CON ---
History of Present Illness - History of Present Illness History of Present Illness: Palliative consult requested by Doctor Hill for goals of care discussion Patient is a 68 yo female admitted from home post episode of epigastric and abdominal pain fallowed by nausea X 1 day. Pain was not radiating, no fever, no diarrhea. patient was treated for respiratory issues at [facility] (formerly [facility]3] and discharged last month. Patient refused CT chest and bronchoscopy. On this admission CT chest and abdomen ws significant for left pleural effusion, right pneumothorax and emphysema. Patient was treated with Zosyn IV, Vanco IV, Lasix and Solumedrol. This morning ADVERTISING ACCOUNT MANAGER called for HR 143 and BP 173/127. Patient was stabilized and transferred to ICU where she got intubated. PMH: asthma Soc. Hx: lives at home with son, , lived in the house where her ex smoke a lot Fam. Hx: denied by son Review of Systems - Review of Systems All systems: reviewed and no additional remarkable complaints except Review of Systems: ROS unobtainable from patient due to intubation. ROS reviewed from nursing. Per nursing patient sustained acute respiratory distress and needed immediate intubation. Past Patient History - Infectious Disease Hx of Infectious Diseases: None - Past Medical History & Family History Past Medical History?: Yes - Past Social History Smoking Status: Never Smoked - CARDIAC Hx Cardiac Disorders: No - PULMONARY Hx Asthma: Yes - NEUROLOGICAL Hx Neurological Disorder: No - HEENT Hx HEENT Problems: No - RENAL Hx Chronic Kidney Disease: No - ENDOCRINE/METABOLIC Hx Endocrine Disorders: No - HEMATOLOGICAL/ONCOLOGICAL Hx Blood Disorders: No - INTEGUMENTARY Hx Dermatological Problems: No - MUSCULOSKELETAL/RHEUMATOLOGICAL Hx Musculoskeletal Disorders: No Hx Falls: No - GASTROINTESTINAL Hx Gastrointestinal Disorders: No - GENITOURINARY/GYNECOLOGICAL Hx Genitourinary Disorders: No - PSYCHIATRIC Hx Substance Use: No - SURGICAL HISTORY Hx Surgeries: Yes Hx Section: Yes - ANESTHESIA Hx Anesthesia: Yes Hx Anesthesia Reactions: No Hx Malignant Hyperthermia: No Meds Allergies/Adverse Reactions: Allergies Allergy/AdvReac Type Severity Reaction Status Date / Time acetaminophen [From NyQuil] Allergy Verified 08/22/18 12:02 dextromethorphan HBr Allergy Verified 08/22/18 12:02 [From NyQuil] doxylamine succinate Allergy Verified 08/22/18 12:02 [From NyQuil] ibuprofen [From Advil] Allergy Verified 08/22/18 12:02 pseudoephedrine HCl Allergy Verified 08/22/18 12:02 [From NyQuil] - Medications Medications: Current Medications Acetylcysteine (Acetylcysteine 20%) 4 ml INH Q4H [facility] Last Admin: 09/15/18 04:40 Dose: Not Given Albuterol/Ipratropium (Duoneb 3 Mg/0.5 Mg (3 Ml) Ud) 3 ml INH RQ4 [facility] Last Admin: 09/15/18 07:53 Dose: 3 ml Carvedilol (Coreg) 3.125 mg PO BID [facility] Last Admin: 09/15/18 12:53 Dose: Not Given Fluticasone/Vilanterol (Breo Ellipta 100-25 Mcg Inh) 1 puff INH RQD [facility] Last Admin: 09/15/18 07:57 Dose: 1 puff Furosemide (Lasix) 20 mg PO DAILY [facility] Last Admin: 09/14/18 09:26 Dose: 20 mg Guaifenesin (Mucinex La) 600 mg PO BID [facility] Last Admin: 09/15/18 12:54 Dose: Not Given Piperacillin Sod/Tazobactam (Sod 3.375 gm/ Sodium Chloride) 100 mls @ 200 mls/hr IVPB Q6H [facility]; Protocol Last Admin: 09/15/18 05:45 Dose: 200 mls/hr Vancomycin HCl 1 gm/ Sodium (Chloride) 250 mls @ 166.7 mls/hr IVPB Q24H [facility]; Protocol Last Admin: 09/14/18 19:01 Dose: 166.7 mls/hr Propofol (Diprivan) 1,000 mg in 100 mls @ 1.138 mls/hr IV .Q24H PRN; Protocol PRN Reason: TITRATE PER MD ORDER Last Admin: 09/15/18 10:46 Dose: 10 mcg/kg/min, 2.275 mls/hr Lactobacillus Acidophilus (Lactobacillus) 1 cap PO BID [facility] Methylprednisolone (Solu-Medrol) 40 mg IVP Q8H [facility] Last Admin: 09/15/18 12:55 Dose: Not Given Montelukast Sodium (Singulair) 10 mg PO HS [facility] Last Admin: 09/14/18 21:17 Dose: 10 mg Pantoprazole Sodium (Protonix Inj) 20 mg IVP DAILY [facility] Physical Exam - Constitutional Appears: In Acute Distress, Chronically Ill - Head Exam Head Exam: ATRAUMATIC, NORMAL INSPECTION, NORMOCEPHALIC - ENT Exam ENT Exam: Mucous Membranes Dry Additional comments: ETT - Neck Exam Neck exam: Positive for: Normal Inspection - Respiratory Exam Respiratory Exam: Respiratory Distress - Cardiovascular Exam Cardiovascular Exam: Tachycardia - GI/Abdominal Exam GI & Abdominal Exam: Normal Bowel Sounds, Soft - Rectal Exam Rectal Exam: Deferred - Extremities Exam Extremities exam: Positive for: normal inspection - Back Exam Back exam: NORMAL INSPECTION - Neurological Exam Neurological exam: Altered, Motor Sensory Deficit - Psychiatric Exam Psychiatric exam: Flat Affect - Skin Skin Exam: Dry, Intact, Normal Color, Warm Results - Vital Signs Recent Vital Signs: Last Vital Signs Temp 97.9 F 09/15/18 08:00 Pulse 117 H 09/15/18 08:25 Resp 20 09/15/18 08:20 BP 154/107 H 09/15/18 08:00 Pulse Ox 92 L 09/15/18 08:00 - Labs Result Diagrams: 09/15/18 11:45 09/15/18 11:45 Labs: Laboratory Results - last 24 hr 09/15/18 09/15/18 09/15/18 08:34 08:34 10:11 WBC 16.9 H RBC 4.24 Hgb 11.1 Hct 33.2 L MCV 78.4 L MCH 26.1 L MCHC 33.3 RDW 16.4 H Plt Count 301 MPV 9.5 Neut % (Auto) 90.8 H Lymph % (Auto) 3.1 L Camp % (Auto) 6.1 Eos % (Auto) 0.0 Baso % (Auto) 0.0 Neut # (Auto) 15.3 H Lymph # (Auto) 0.5 L Camp # (Auto) 1.0 H Eos # (Auto) 0.0 Baso # (Auto) 0.0 Neutrophils % (Manual) 88 H Band Neutrophils % 2 Lymphocytes % (Manual) 3 L Monocytes % (Manual) 7 Platelet Estimate Normal Anisocytosis (manual) Slight ESR PT INR APTT Puncture Site Rra pCO2 38 pO2 66 L HCO3 29.6 H ABG pH 7.50 H ABG Total CO2 30.8 H ABG O2 Saturation 95.7 ABG Base Excess 6.1 H Jose Test Po ABG Potassium 3.6 A-a O2 Difference 600.0 Respiratory Index 9.1 Glucose 314 H Lactate 4.0 H* Liter Flow 40.0 Mechanical Rate FiO2 100.0 Tidal Volume PEEP Sodium 137 140.0 Potassium 4.0 Chloride 99 102.0 Carbon Dioxide 33 H Anion Gap 9 L BUN 27 H Creatinine 0.7 Est GFR ( Amer) > 60 Est GFR (Non-Af Amer) > 60 Random Glucose 173 H D Calcium 9.7 Phosphorus 4.5 Magnesium 2.3 Total Bilirubin 0.6 AST 64 H D ALT 37 Alkaline Phosphatase 130 H D Total Creatine Kinase CK-MB (Mass) Troponin I C-Reactive Protein Total Protein 6.5 Albumin 3.3 L Globulin 3.1 Albumin/Globulin Ratio 1.1 Arterial Blood Potassium 3.6 IgG IgA IgM 09/15/18 09/15/18 09/15/18 10:24 11:45 11:45 WBC 16.5 H RBC 4.05 Hgb 10.4 L Hct 31.8 L MCV 78.5 L MCH 25.7 L MCHC 32.8 L RDW 16.8 H Plt Count 285 MPV 9.4 Neut % (Auto) 89.5 H Lymph % (Auto) 1.8 L Camp % (Auto) 8.3 Eos % (Auto) 0.0 Baso % (Auto) 0.4 Neut # (Auto) 14.8 H Lymph # (Auto) 0.3 L Camp # (Auto) 1.4 H Eos # (Auto) 0.0 Baso # (Auto) 0.1 Neutrophils % (Manual) Band Neutrophils % Lymphocytes % (Manual) Monocytes % (Manual) Platelet Estimate Anisocytosis (manual) ESR PT INR APTT Puncture Site pCO2 pO2 HCO3 ABG pH ABG Total CO2 ABG O2 Saturation ABG Base Excess Jose Test ABG Potassium A-a O2 Difference Respiratory Index Glucose Lactate Liter Flow Mechanical Rate FiO2 Tidal Volume PEEP Sodium 131 L Potassium 3.8 Chloride 99 Carbon Dioxide 31 H Anion Gap 5 L BUN 27 H Creatinine 0.7 Est GFR ( Amer) > 60 Est GFR (Non-Af Amer) > 60 Random Glucose 255 H D Calcium 9.3 Phosphorus 4.5 Magnesium 2.3 Total Bilirubin 0.5 AST 90 H D ALT 50 Alkaline Phosphatase 131 H Total Creatine Kinase 27 L CK-MB (Mass) 3.55 H Troponin I 0.0230 C-Reactive Protein Total Protein 6.2 L Albumin 3.1 L Globulin 3.1 Albumin/Globulin Ratio 1.0 Arterial Blood Potassium IgG IgA IgM 09/15/18 09/15/18 09/15/18 11:45 11:45 11:45 WBC RBC Hgb Hct MCV MCH MCHC RDW Plt Count MPV Neut % (Auto) Lymph % (Auto) Camp % (Auto) Eos % (Auto) Baso % (Auto) Neut # (Auto) Lymph # (Auto) Camp # (Auto) Eos # (Auto) Baso # (Auto) Neutrophils % (Manual) Band Neutrophils % Lymphocytes % (Manual) Monocytes % (Manual) Platelet Estimate Anisocytosis (manual) ESR 84 H PT INR APTT Puncture Site pCO2 pO2 HCO3 ABG pH ABG Total CO2 ABG O2 Saturation ABG Base Excess Jose Test ABG Potassium A-a O2 Difference Respiratory Index Glucose Lactate Liter Flow Mechanical Rate FiO2 Tidal Volume PEEP Sodium Potassium Chloride Carbon Dioxide Anion Gap BUN Creatinine Est GFR ( Amer) Est GFR (Non-Af Amer) Random Glucose Calcium Phosphorus Magnesium Total Bilirubin AST ALT Alkaline Phosphatase Total Creatine Kinase CK-MB (Mass) Troponin I C-Reactive Protein 73.30 H Total Protein Albumin Globulin Albumin/Globulin Ratio Arterial Blood Potassium IgG 869.4 IgA 368.2 IgM 101.6 09/15/18 09/15/18 12:23 12:23 WBC RBC Hgb Hct MCV MCH MCHC RDW Plt Count MPV Neut % (Auto) Lymph % (Auto) Camp % (Auto) Eos % (Auto) Baso % (Auto) Neut # (Auto) Lymph # (Auto) Camp # (Auto) Eos # (Auto) Baso # (Auto) Neutrophils % (Manual) Band Neutrophils % Lymphocytes % (Manual) Monocytes % (Manual) Platelet Estimate Anisocytosis (manual) ESR PT 13.3 H INR 1.2 APTT 21 Puncture Site L/b pCO2 43 pO2 89 HCO3 28.4 H ABG pH 7.44 ABG Total CO2 30.5 H ABG O2 Saturation 98.4 H ABG Base Excess 4.4 H Jose Test Na ABG Potassium 3.2 L A-a O2 Difference 570.0 Respiratory Index 6.4 Glucose 180 H Lactate 2.8 H Liter Flow Mechanical Rate 14 FiO2 100.0 Tidal Volume 350 PEEP 5 Sodium 141.0 Potassium Chloride 105.0 Carbon Dioxide Anion Gap BUN Creatinine Est GFR ( Amer) Est GFR (Non-Af Amer) Random Glucose Calcium Phosphorus Magnesium Total Bilirubin AST ALT Alkaline Phosphatase Total Creatine Kinase CK-MB (Mass) Troponin I C-Reactive Protein Total Protein Albumin Globulin Albumin/Globulin Ratio Arterial Blood Potassium 3.2 L IgG IgA IgM Assessment & Plan - Assessment and Plan (Free Text) Assessment: Palliative consult Full Code, there is no Advance Directive on chart, PPS 10% I reviewed Medical records, all diagnostic studies, examined patient in the bed, discussed goals of care with her son Patient is intubated, unresponsive to verbal/tactile stimuli. Skin dry, intact, no wounds Acute respiratory distress, 100% FiO2, sedated, on Diprivan ST, HR 70-80, on Cardizem BID Abdomen soft, active bowel sounds, incontinent. reported weight loss of 30 lb over 2 months. There is no active ROM, pedal pulses present, mild pedal edema. UTI + Staph infection, on Zosyn and Vanco IV, lactate paul up to 4.0. I discussed patient's condition with her son Delvis, , away from the bed side. He understands that his mother is very sick. Son is aware of patient's non compliance with fallow ups appointments and refusal of diagnostic studies in the past. I reviewed with him latest diagnostic studies results, the purpose of MV and uncertainty when it comes to prognosis. I made him aware that bronchosopy was planned and he agreed with it. Possibility of chest tube for Pneumothorax discussed. Son agreed with it as well. Son stated he would want all measures to be applied to support his mother's life as long as it brings meaningful recovery for her. We agreed to meet again and update goals of care based on patient's condition. Impression * Acute respiratory distress * Pneumothorax * Unwanted weight loss * Non compliance with care * Patient's wishes for end of life care are not known * [facility] for patient * Son is requesting Full Code Suggestion * Continue MV support * Bronchoscopy as planned * Artificial hydration and nutrition * Full Code * Keep son undated on condition of the patient. Palliative care will fallow as needed. I shared my contact info with patient. Advance care planing 60 min. Plan: Palliative consult
--- NOTE | 2018-09-15 14:08 | PCM.PROC ---
Procedures Attestation:: I certify that I have explained the specified Operation(s) or Procedure(s), risks, benefits and reasonable alternatives to the Patient and/or other person responsible. The opportunity was given to ask questions and all questions answered - Intubation Time Out Performed: Yes Sedative: Etomidate Laryngoscope: Dick ET Tube Size: 7.5 ET Tube Secured at Depth: 21 ET Tube Placement Confirmation: Visualized Passing Through Cords, Breath Sounds Equal Bilaterally, No Breath Sounds Over Epigastrum, Confirmation w/Capnometry Patient Tolerated Procedure: Well Procedure Immediate Complications: None Additional comments: Patient was tachycardic, desatting, tachypneic on high flow. Patient required emergent intubation in ICU. Etomidate was ordered for induction agent. Patient's upper dentures were removed. Lower dentures were difficult and as patient was desatting the intubation continued without removal of lower dentures. Patient had ET tube placed with breath sounds ascultated when patient was being given o2 with bag mask. Oxygenation improved with bag mask and then was switched to PRVC A/C. Please refer to ICU notes for vent settings. Secretions were suctioned. Propofol was administered due to patient fighting the vent with teeth biting. Biteblock was placed as well.
--- NOTE | 2018-09-15 14:36 | CP.PCM.CON ---
History of Present Illness - History of Present Illness History of Present Illness: Thoracic Surgery Consult Note- Dr. Cantrell Reason for Consult: New Pneumothorax on Left side 68F w/ extensive pulmonary history and condition was transferred to the ICU earlier today due to desaturation and subsequently intubated. During Post intubation xray it was noted to have a left pneumothorax. history was obtained through EMR. Patient has history of pneumonia, bronchiectasis. Currently intubated and sedated on Propofol 35. PRVC 350/14/100/5, HR in 120s. During hospital stay patient had refused bronchosocpy and IR Biopsies to help determine pathology. working diagnosis broncheactasis, pulmonary fibrosis. per nursing, no acute fevers, chills, nausea, vomiting. Previous CT scan showed Bronchieactasis, and right pneumothroax, subsequently resolved and now CXR shows left PTX PMH: HFrEF, bronchiectasis PSH: denies, no hx of colonoscopy ALL: acetaminophen, dextromethorphan, doxylamine, further details refer to [facility] Socialhx: social etoh, denies tobacco, recreational drug use . Review of Systems - Review of Systems All systems: reviewed and no additional remarkable complaints except - Constitutional Constitutional: As Per HPI Past Patient History - Infectious Disease Hx of Infectious Diseases: None - Past Medical History & Family History Past Medical History?: Yes - Past Social History Smoking Status: Never Smoked - CARDIAC Hx Cardiac Disorders: No - PULMONARY Hx Asthma: Yes - NEUROLOGICAL Hx Neurological Disorder: No - HEENT Hx HEENT Problems: No - RENAL Hx Chronic Kidney Disease: No - ENDOCRINE/METABOLIC Hx Endocrine Disorders: No - HEMATOLOGICAL/ONCOLOGICAL Hx Blood Disorders: No - INTEGUMENTARY Hx Dermatological Problems: No - MUSCULOSKELETAL/RHEUMATOLOGICAL Hx Musculoskeletal Disorders: No Hx Falls: No - GASTROINTESTINAL Hx Gastrointestinal Disorders: No - GENITOURINARY/GYNECOLOGICAL Hx Genitourinary Disorders: No - PSYCHIATRIC Hx Substance Use: No - SURGICAL HISTORY Hx Surgeries: Yes Hx Section: Yes - ANESTHESIA Hx Anesthesia: Yes Hx Anesthesia Reactions: No Hx Malignant Hyperthermia: No Meds Allergies/Adverse Reactions: Allergies Allergy/AdvReac Type Severity Reaction Status Date / Time acetaminophen [From NyQuil] Allergy Verified 08/22/18 12:02 dextromethorphan HBr Allergy Verified 08/22/18 12:02 [From NyQuil] doxylamine succinate Allergy Verified 08/22/18 12:02 [From NyQuil] ibuprofen [From Advil] Allergy Verified 08/22/18 12:02 pseudoephedrine HCl Allergy Verified 08/22/18 12:02 [From NyQuil] - Medications Medications: Current Medications Acetylcysteine (Acetylcysteine 20%) 4 ml INH Q4H [facility] Last Admin: 09/15/18 04:40 Dose: Not Given Albuterol/Ipratropium (Duoneb 3 Mg/0.5 Mg (3 Ml) Ud) 3 ml INH RQ4 [facility] Last Admin: 09/15/18 07:53 Dose: 3 ml Carvedilol (Coreg) 3.125 mg PO BID [facility] Last Admin: 09/15/18 12:53 Dose: Not Given Fluticasone/Vilanterol (Breo Ellipta 100-25 Mcg Inh) 1 puff INH RQD [facility] Last Admin: 09/15/18 07:57 Dose: 1 puff Furosemide (Lasix) 20 mg PO DAILY [facility] Last Admin: 09/15/18 13:25 Dose: 20 mg Guaifenesin (Mucinex La) 600 mg PO BID [facility] Last Admin: 09/15/18 12:54 Dose: Not Given Piperacillin Sod/Tazobactam (Sod 3.375 gm/ Sodium Chloride) 100 mls @ 200 mls/hr IVPB Q6H [facility]; Protocol Last Admin: 09/15/18 13:25 Dose: 200 mls/hr Vancomycin HCl 1 gm/ Sodium (Chloride) 250 mls @ 166.7 mls/hr IVPB Q24H [facility]; Protocol Last Admin: 09/14/18 19:01 Dose: 166.7 mls/hr Propofol (Diprivan) 1,000 mg in 100 mls @ 1.138 mls/hr IV .Q24H PRN; Protocol PRN Reason: TITRATE PER MD ORDER Last Admin: 09/15/18 10:46 Dose: 10 mcg/kg/min, 2.275 mls/hr Lactobacillus Acidophilus (Lactobacillus) 1 cap PO BID [facility] Methylprednisolone (Solu-Medrol) 40 mg IVP Q8H [facility] Last Admin: 09/15/18 12:55 Dose: Not Given Montelukast Sodium (Singulair) 10 mg PO HS [facility] Last Admin: 09/14/18 21:17 Dose: 10 mg Pantoprazole Sodium (Protonix Inj) 20 mg IVP DAILY [facility] Physical Exam - Constitutional Appears: No Acute Distress, Chronically Ill - Head Exam Head Exam: ATRAUMATIC - Eye Exam Eye Exam: absent: PERRL - ENT Exam ENT Exam: Mucous Membranes Moist - Respiratory Exam Respiratory Exam: Decreased Breath Sounds (on left) Additional comments: Intubated and sedated on PRVC - Cardiovascular Exam Cardiovascular Exam: Tachycardia, +S1, +S2. absent: Bradycardia - GI/Abdominal Exam GI & Abdominal Exam: Distended, Soft. absent: Firm, Guarding, Tenderness - Neurological Exam Neurological exam: Alert Additional comments: sedated on profpol - Psychiatric Exam Psychiatric exam: Normal Affect - Skin Skin Exam: Intact, Warm Results - Vital Signs Recent Vital Signs: Last Vital Signs Temp 97.9 F 09/15/18 08:00 Pulse 117 H 09/15/18 08:25 Resp 20 09/15/18 08:20 BP 119/84 09/15/18 13:25 Pulse Ox 92 L 09/15/18 08:00 - Labs Result Diagrams: 09/15/18 11:45 09/15/18 11:45 Labs: Laboratory Results - last 24 hr 09/15/18 09/15/18 09/15/18 08:34 08:34 10:11 WBC 16.9 H RBC 4.24 Hgb 11.1 Hct 33.2 L MCV 78.4 L MCH 26.1 L MCHC 33.3 RDW 16.4 H Plt Count 301 MPV 9.5 Neut % (Auto) 90.8 H Lymph % (Auto) 3.1 L [place] % (Auto) 6.1 Eos % (Auto) 0.0 Baso % (Auto) 0.0 Neut # (Auto) 15.3 H Lymph # (Auto) 0.5 L [place] # (Auto) 1.0 H Eos # (Auto) 0.0 Baso # (Auto) 0.0 Neutrophils % (Manual) 88 H Band Neutrophils % 2 Lymphocytes % (Manual) 3 L Monocytes % (Manual) 7 Platelet Estimate Normal Anisocytosis (manual) Slight ESR PT INR APTT Puncture Site Rra pCO2 38 pO2 66 L HCO3 29.6 H ABG pH 7.50 H ABG Total CO2 30.8 H ABG O2 Saturation 95.7 ABG Base Excess 6.1 H Jose Test Po ABG Potassium 3.6 A-a O2 Difference 600.0 Respiratory Index 9.1 Glucose 314 H Lactate 4.0 H* Liter Flow 40.0 Mechanical Rate FiO2 100.0 Tidal Volume PEEP Sodium 137 140.0 Potassium 4.0 Chloride 99 102.0 Carbon Dioxide 33 H Anion Gap 9 L BUN 27 H Creatinine 0.7 Est GFR ( Amer) > 60 Est GFR (Non-Af Amer) > 60 Random Glucose 173 H D Calcium 9.7 Phosphorus 4.5 Magnesium 2.3 Total Bilirubin 0.6 AST 64 H D ALT 37 Alkaline Phosphatase 130 H D Total Creatine Kinase CK-MB (Mass) Troponin I C-Reactive Protein Total Protein 6.5 Albumin 3.3 L Globulin 3.1 Albumin/Globulin Ratio 1.1 Arterial Blood Potassium 3.6 IgG IgA IgM 09/15/18 09/15/18 09/15/18 10:24 11:45 11:45 WBC 16.5 H RBC 4.05 Hgb 10.4 L Hct 31.8 L MCV 78.5 L MCH 25.7 L MCHC 32.8 L RDW 16.8 H Plt Count 285 MPV 9.4 Neut % (Auto) 89.5 H Lymph % (Auto) 1.8 L [place] % (Auto) 8.3 Eos % (Auto) 0.0 Baso % (Auto) 0.4 Neut # (Auto) 14.8 H Lymph # (Auto) 0.3 L [place] # (Auto) 1.4 H Eos # (Auto) 0.0 Baso # (Auto) 0.1 Neutrophils % (Manual) Band Neutrophils % Lymphocytes % (Manual) Monocytes % (Manual) Platelet Estimate Anisocytosis (manual) ESR PT INR APTT Puncture Site pCO2 pO2 HCO3 ABG pH ABG Total CO2 ABG O2 Saturation ABG Base Excess Jose Test ABG Potassium A-a O2 Difference Respiratory Index Glucose Lactate Liter Flow Mechanical Rate FiO2 Tidal Volume PEEP Sodium 131 L Potassium 3.8 Chloride 99 Carbon Dioxide 31 H Anion Gap 5 L BUN 27 H Creatinine 0.7 Est GFR ( Amer) > 60 Est GFR (Non-Af Amer) > 60 Random Glucose 255 H D Calcium 9.3 Phosphorus 4.5 Magnesium 2.3 Total Bilirubin 0.5 AST 90 H D ALT 50 Alkaline Phosphatase 131 H Total Creatine Kinase 27 L CK-MB (Mass) 3.55 H Troponin I 0.0230 C-Reactive Protein Total Protein 6.2 L Albumin 3.1 L Globulin 3.1 Albumin/Globulin Ratio 1.0 Arterial Blood Potassium IgG IgA IgM 09/15/18 09/15/18 09/15/18 11:45 11:45 11:45 WBC RBC Hgb Hct MCV MCH MCHC RDW Plt Count MPV Neut % (Auto) Lymph % (Auto) [place] % (Auto) Eos % (Auto) Baso % (Auto) Neut # (Auto) Lymph # (Auto) [place] # (Auto) Eos # (Auto) Baso # (Auto) Neutrophils % (Manual) Band Neutrophils % Lymphocytes % (Manual) Monocytes % (Manual) Platelet Estimate Anisocytosis (manual) ESR 84 H PT INR APTT Puncture Site pCO2 pO2 HCO3 ABG pH ABG Total CO2 ABG O2 Saturation ABG Base Excess Jose Test ABG Potassium A-a O2 Difference Respiratory Index Glucose Lactate Liter Flow Mechanical Rate FiO2 Tidal Volume PEEP Sodium Potassium Chloride Carbon Dioxide Anion Gap BUN Creatinine Est GFR ( Amer) Est GFR (Non-Af Amer) Random Glucose Calcium Phosphorus Magnesium Total Bilirubin AST ALT Alkaline Phosphatase Total Creatine Kinase CK-MB (Mass) Troponin I C-Reactive Protein 73.30 H Total Protein Albumin Globulin Albumin/Globulin Ratio Arterial Blood Potassium IgG 869.4 IgA 368.2 IgM 101.6 09/15/18 09/15/18 12:23 12:23 WBC RBC Hgb Hct MCV MCH MCHC RDW Plt Count MPV Neut % (Auto) Lymph % (Auto) [place] % (Auto) Eos % (Auto) Baso % (Auto) Neut # (Auto) Lymph # (Auto) [place] # (Auto) Eos # (Auto) Baso # (Auto) Neutrophils % (Manual) Band Neutrophils % Lymphocytes % (Manual) Monocytes % (Manual) Platelet Estimate Anisocytosis (manual) ESR PT 13.3 H INR 1.2 APTT 21 Puncture Site L/b pCO2 43 pO2 89 HCO3 28.4 H ABG pH 7.44 ABG Total CO2 30.5 H ABG O2 Saturation 98.4 H ABG Base Excess 4.4 H Jose Test Na ABG Potassium 3.2 L A-a O2 Difference 570.0 Respiratory Index 6.4 Glucose 180 H Lactate 2.8 H Liter Flow Mechanical Rate 14 FiO2 100.0 Tidal Volume 350 PEEP 5 Sodium 141.0 Potassium Chloride 105.0 Carbon Dioxide Anion Gap BUN Creatinine Est GFR ( Amer) Est GFR (Non-Af Amer) Random Glucose Calcium Phosphorus Magnesium Total Bilirubin AST ALT Alkaline Phosphatase Total Creatine Kinase CK-MB (Mass) Troponin I C-Reactive Protein Total Protein Albumin Globulin Albumin/Globulin Ratio Arterial Blood Potassium 3.2 L IgG IgA IgM Assessment & Plan - Assessment and Plan (Free Text) Assessment: 68F w/ bronchiectasis, now with trace Left pneumothorax Plan: - recommend CT Chest - will observe closely - further management pending results of CT scan - will continue to follow along closely - discussed w/ Dr. Cantrell Thoracic Surgeon attending PGY2
[2018-09-15] MEDS ORDERED: Iohexol 350mg/ml 100 ML ONE (16:26)
--- NOTE | 2018-09-15 16:37 | CP.PCM.CON ---
Past Patient History - Infectious Disease Hx of Infectious Diseases: None - Past Medical History & Family History Past Medical History?: Yes - Past Social History Smoking Status: Never Smoked - CARDIAC Hx Cardiac Disorders: No - PULMONARY Hx Asthma: Yes - NEUROLOGICAL Hx Neurological Disorder: No - HEENT Hx HEENT Problems: No - RENAL Hx Chronic Kidney Disease: No - ENDOCRINE/METABOLIC Hx Endocrine Disorders: No - HEMATOLOGICAL/ONCOLOGICAL Hx Blood Disorders: No - INTEGUMENTARY Hx Dermatological Problems: No - MUSCULOSKELETAL/RHEUMATOLOGICAL Hx Musculoskeletal Disorders: No Hx Falls: No - GASTROINTESTINAL Hx Gastrointestinal Disorders: No - GENITOURINARY/GYNECOLOGICAL Hx Genitourinary Disorders: No - PSYCHIATRIC Hx Substance Use: No - SURGICAL HISTORY Hx Surgeries: Yes Hx Section: Yes - ANESTHESIA Hx Anesthesia: Yes Hx Anesthesia Reactions: No Hx Malignant Hyperthermia: No Meds Allergies/Adverse Reactions: Allergies Allergy/AdvReac Type Severity Reaction Status Date / Time acetaminophen [From NyQuil] Allergy Verified 08/22/18 12:02 dextromethorphan HBr Allergy Verified 08/22/18 12:02 [From NyQuil] doxylamine succinate Allergy Verified 08/22/18 12:02 [From NyQuil] ibuprofen [From Advil] Allergy Verified 08/22/18 12:02 pseudoephedrine HCl Allergy Verified 08/22/18 12:02 [From NyQuil] - Medications Medications: Current Medications Acetylcysteine (Acetylcysteine 20%) 4 ml INH Q4H [facility] Last Admin: 09/15/18 04:40 Dose: Not Given Albuterol/Ipratropium (Duoneb 3 Mg/0.5 Mg (3 Ml) Ud) 3 ml INH RQ4 [facility] Last Admin: 09/15/18 07:53 Dose: 3 ml Carvedilol (Coreg) 3.125 mg PO BID [facility] Last Admin: 09/15/18 12:53 Dose: Not Given Fluticasone/Vilanterol (Breo Ellipta 100-25 Mcg Inh) 1 puff INH RQD [facility] Last Admin: 09/15/18 07:57 Dose: 1 puff Furosemide (Lasix) 20 mg PO DAILY [facility] Last Admin: 09/15/18 13:25 Dose: 20 mg Guaifenesin (Mucinex La) 600 mg PO BID [facility] Last Admin: 09/15/18 12:54 Dose: Not Given Piperacillin Sod/Tazobactam (Sod 3.375 gm/ Sodium Chloride) 100 mls @ 200 mls/hr IVPB Q6H [facility]; Protocol Last Admin: 09/15/18 13:25 Dose: 200 mls/hr Vancomycin HCl 1 gm/ Sodium (Chloride) 250 mls @ 166.7 mls/hr IVPB Q24H [facility]; Protocol Last Admin: 09/14/18 19:01 Dose: 166.7 mls/hr Propofol (Diprivan) 1,000 mg in 100 mls @ 1.138 mls/hr IV .Q24H PRN; Protocol PRN Reason: TITRATE PER MD ORDER Last Titration: 09/15/18 13:00 Dose: 50 mcg/kg/min, 11.376 mls/hr Lactobacillus Acidophilus (Lactobacillus) 1 cap PO BID [facility]NA Methylprednisolone (Solu-Medrol) 40 mg IVP Q8H [facility] Last Admin: 09/15/18 12:55 Dose: Not Given Montelukast Sodium (Singulair) 10 mg PO HS [facility] Last Admin: 09/14/18 21:17 Dose: 10 mg Pantoprazole Sodium (Protonix Inj) 20 mg IVP DAILY [facility] Results - Vital Signs Recent Vital Signs: Last Vital Signs Temp 97.9 F 09/15/18 16:00 Pulse 125 H 09/15/18 16:00 Resp 33 H 09/15/18 16:00 BP 118/83 09/15/18 15:59 Pulse Ox 94 L 09/15/18 16:00 - Labs Result Diagrams: 09/15/18 11:45 09/15/18 11:45 Labs: Laboratory Results - last 24 hr 09/14/18 09/15/18 09/15/18 08:03 08:34 08:34 WBC 16.9 H RBC 4.24 Hgb 11.1 Hct 33.2 L MCV 78.4 L MCH 26.1 L MCHC 33.3 RDW 16.4 H Plt Count 301 MPV 9.5 Neut % (Auto) 90.8 H Lymph % (Auto) 3.1 L [place] % (Auto) 6.1 Eos % (Auto) 0.0 Baso % (Auto) 0.0 Neut # (Auto) 15.3 H Lymph # (Auto) 0.5 L [place] # (Auto) 1.0 H Eos # (Auto) 0.0 Baso # (Auto) 0.0 Neutrophils % (Manual) 88 H Band Neutrophils % 2 Lymphocytes % (Manual) 3 L Monocytes % (Manual) 7 Platelet Estimate Normal Anisocytosis (manual) Slight ESR PT INR APTT Puncture Site pCO2 pO2 HCO3 ABG pH ABG Total CO2 ABG O2 Saturation ABG Base Excess Jose Test ABG Potassium A-a O2 Difference Respiratory Index Glucose Lactate Liter Flow Mechanical Rate FiO2 Tidal Volume PEEP Sodium 137 Potassium 4.0 Chloride 99 Carbon Dioxide 33 H Anion Gap 9 L BUN 27 H Creatinine 0.7 Est GFR ( Amer) > 60 Est GFR (Non-Af Amer) > 60 Random Glucose 173 H D Calcium 9.7 Phosphorus 4.5 Magnesium 2.3 Total Bilirubin 0.6 AST 64 H D ALT 37 Alkaline Phosphatase 130 H D Total Creatine Kinase CK-MB (Mass) Troponin I C-Reactive Protein Total Protein 6.5 Albumin 3.3 L Globulin 3.1 Albumin/Globulin Ratio 1.1 Arterial Blood Potassium IgG IgA IgM [place] Screen Negative 09/15/18 09/15/18 09/15/18 10:11 10:24 11:45 WBC 16.5 H RBC 4.05 Hgb 10.4 L Hct 31.8 L MCV 78.5 L MCH 25.7 L MCHC 32.8 L RDW 16.8 H Plt Count 285 MPV 9.4 Neut % (Auto) 89.5 H Lymph % (Auto) 1.8 L [place] % (Auto) 8.3 Eos % (Auto) 0.0 Baso % (Auto) 0.4 Neut # (Auto) 14.8 H Lymph # (Auto) 0.3 L [place] # (Auto) 1.4 H Eos # (Auto) 0.0 Baso # (Auto) 0.1 Neutrophils % (Manual) Band Neutrophils % Lymphocytes % (Manual) Monocytes % (Manual) Platelet Estimate Anisocytosis (manual) ESR PT INR APTT Puncture Site Rra pCO2 38 pO2 66 L HCO3 29.6 H ABG pH 7.50 H ABG Total CO2 30.8 H ABG O2 Saturation 95.7 ABG Base Excess 6.1 H Jose Test Po ABG Potassium 3.6 A-a O2 Difference 600.0 Respiratory Index 9.1 Glucose 314 H Lactate 4.0 H* Liter Flow 40.0 Mechanical Rate FiO2 100.0 Tidal Volume PEEP Sodium 140.0 Potassium Chloride 102.0 Carbon Dioxide Anion Gap BUN Creatinine Est GFR ( Amer) Est GFR (Non-Af Amer) Random Glucose Calcium Phosphorus Magnesium Total Bilirubin AST ALT Alkaline Phosphatase Total Creatine Kinase 27 L CK-MB (Mass) 3.55 H Troponin I 0.0230 C-Reactive Protein Total Protein Albumin Globulin Albumin/Globulin Ratio Arterial Blood Potassium 3.6 IgG IgA IgM [place] Screen 09/15/18 09/15/18 09/15/18 11:45 11:45 11:45 WBC RBC Hgb Hct MCV MCH MCHC RDW Plt Count MPV Neut % (Auto) Lymph % (Auto) [place] % (Auto) Eos % (Auto) Baso % (Auto) Neut # (Auto) Lymph # (Auto) [place] # (Auto) Eos # (Auto) Baso # (Auto) Neutrophils % (Manual) Band Neutrophils % Lymphocytes % (Manual) Monocytes % (Manual) Platelet Estimate Anisocytosis (manual) ESR 84 H PT INR APTT Puncture Site pCO2 pO2 HCO3 ABG pH ABG Total CO2 ABG O2 Saturation ABG Base Excess Jose Test ABG Potassium A-a O2 Difference Respiratory Index Glucose Lactate Liter Flow Mechanical Rate FiO2 Tidal Volume PEEP Sodium 131 L Potassium 3.8 Chloride 99 Carbon Dioxide 31 H Anion Gap 5 L BUN 27 H Creatinine 0.7 Est GFR ( Amer) > 60 Est GFR (Non-Af Amer) > 60 Random Glucose 255 H D Calcium 9.3 Phosphorus 4.5 Magnesium 2.3 Total Bilirubin 0.5 AST 90 H D ALT 50 Alkaline Phosphatase 131 H Total Creatine Kinase CK-MB (Mass) Troponin I C-Reactive Protein 73.30 H Total Protein 6.2 L Albumin 3.1 L Globulin 3.1 Albumin/Globulin Ratio 1.0 Arterial Blood Potassium IgG IgA IgM [place] Screen 09/15/18 09/15/18 09/15/18 11:45 12:23 12:23 WBC RBC Hgb Hct MCV MCH MCHC RDW Plt Count MPV Neut % (Auto) Lymph % (Auto) [place] % (Auto) Eos % (Auto) Baso % (Auto) Neut # (Auto) Lymph # (Auto) [place] # (Auto) Eos # (Auto) Baso # (Auto) Neutrophils % (Manual) Band Neutrophils % Lymphocytes % (Manual) Monocytes % (Manual) Platelet Estimate Anisocytosis (manual) ESR PT 13.3 H INR 1.2 APTT 21 Puncture Site L/b pCO2 43 pO2 89 HCO3 28.4 H ABG pH 7.44 ABG Total CO2 30.5 H ABG O2 Saturation 98.4 H ABG Base Excess 4.4 H Jose Test Na ABG Potassium 3.2 L A-a O2 Difference 570.0 Respiratory Index 6.4 Glucose 180 H Lactate 2.8 H Liter Flow Mechanical Rate 14 FiO2 100.0 Tidal Volume 350 PEEP 5 Sodium 141.0 Potassium Chloride 105.0 Carbon Dioxide Anion Gap BUN Creatinine Est GFR ( Amer) Est GFR (Non-Af Amer) Random Glucose Calcium Phosphorus Magnesium Total Bilirubin AST ALT Alkaline Phosphatase Total Creatine Kinase CK-MB (Mass) Troponin I C-Reactive Protein Total Protein Albumin Globulin Albumin/Globulin Ratio Arterial Blood Potassium 3.2 L IgG 869.4 IgA 368.2 IgM 101.6 [place] Screen
--- NOTE | 2018-09-15 16:40 | CP.PCM.CON ---
<Jimmy Nassar - Last Filed: 09/15/18 16:42> History of Present Illness - History of Present Illness History of Present Illness: PGY-1 Critical Care Consult Note for Dr. Donovan Patient is a 68 year old female with extensive medical history including HFrEF and bronchiectasis for whom a rapid response was called this afternoon for acutely worsening respiratory distress. Patient was found to be tachycardic and in acute distress at [facility]. Chest XR ordered during [facility] demonstrated worsening pneumothorax in addition to patient's already existing lung disease. Decision was made to intubate the patient upon arrival to ICU. PMH: HFrEF, bronchiectasis PSH: none Meds: Losartan 25 mg PO once daily, Aldactone 12.5 mg PO once daily, Aspirin 81 mg PO once daily, Carvedilol 3.125 mg PO BID, Furosemide 40 mg PO once daily, Levaquin 500 mg PO once daily for 10 days, Acapella valve for chest PT, Breo ellipta 1 pump daily, Duoneb q 6 hours, Singulair 10 mg PO QHS, Mucinex 600 mg PO BID, Medrol dose pack Allx: see EMR FHx: denies SHx: social etoh (rarely), denies smoking, denies drugs Denies papsmear, mammogram recently. Never had a colonoscopy. PMD: none Review of Systems - Review of Systems Systems not reviewed;Unavailable: Intubated Past Patient History - Infectious Disease Hx of Infectious Diseases: None - Past Medical History & Family History Past Medical History?: Yes - Past Social History Smoking Status: Never Smoked - CARDIAC Hx Cardiac Disorders: No - PULMONARY Hx Asthma: Yes - NEUROLOGICAL Hx Neurological Disorder: No - HEENT Hx HEENT Problems: No - RENAL Hx Chronic Kidney Disease: No - ENDOCRINE/METABOLIC Hx Endocrine Disorders: No - HEMATOLOGICAL/ONCOLOGICAL Hx Blood Disorders: No - INTEGUMENTARY Hx Dermatological Problems: No - MUSCULOSKELETAL/RHEUMATOLOGICAL Hx Musculoskeletal Disorders: No Hx Falls: No - GASTROINTESTINAL Hx Gastrointestinal Disorders: No - GENITOURINARY/GYNECOLOGICAL Hx Genitourinary Disorders: No - PSYCHIATRIC Hx Substance Use: No - SURGICAL HISTORY Hx Surgeries: Yes Hx Section: Yes - ANESTHESIA Hx Anesthesia: Yes Hx Anesthesia Reactions: No Hx Malignant Hyperthermia: No Meds Allergies/Adverse Reactions: Allergies Allergy/AdvReac Type Severity Reaction Status Date / Time acetaminophen [From NyQuil] Allergy Verified 08/22/18 12:02 dextromethorphan HBr Allergy Verified 08/22/18 12:02 [From NyQuil] doxylamine succinate Allergy Verified 08/22/18 12:02 [From NyQuil] ibuprofen [From Advil] Allergy Verified 08/22/18 12:02 pseudoephedrine HCl Allergy Verified 08/22/18 12:02 [From NyQuil] - Medications Medications: Current Medications Acetylcysteine (Acetylcysteine 20%) 4 ml INH Q4H TANA Last Admin: 09/15/18 04:40 Dose: Not Given Albuterol/Ipratropium (Duoneb 3 Mg/0.5 Mg (3 Ml) Ud) 3 ml INH RQ4 TANA Last Admin: 09/15/18 07:53 Dose: 3 ml Carvedilol (Coreg) 3.125 mg PO BID TANA Last Admin: 09/15/18 12:53 Dose: Not Given Fluticasone/Vilanterol (Breo Ellipta 100-25 Mcg Inh) 1 puff INH RQD TANA Last Admin: 09/15/18 07:57 Dose: 1 puff Furosemide (Lasix) 20 mg PO DAILY TANA Last Admin: 09/15/18 13:25 Dose: 20 mg Guaifenesin (Mucinex La) 600 mg PO BID TANA Last Admin: 09/15/18 12:54 Dose: Not Given Piperacillin Sod/Tazobactam (Sod 3.375 gm/ Sodium Chloride) 100 mls @ 200 mls/hr IVPB Q6H TANA; Protocol Last Admin: 09/15/18 13:25 Dose: 200 mls/hr Vancomycin HCl 1 gm/ Sodium (Chloride) 250 mls @ 166.7 mls/hr IVPB Q24H TANA; Protocol Last Admin: 09/14/18 19:01 Dose: 166.7 mls/hr Propofol (Diprivan) 1,000 mg in 100 mls @ 1.138 mls/hr IV .Q24H PRN; Protocol PRN Reason: TITRATE PER MD ORDER Last Titration: 09/15/18 13:00 Dose: 50 mcg/kg/min, 11.376 mls/hr Lactobacillus Acidophilus (Lactobacillus) 1 cap PO BID TANA Methylprednisolone (Solu-Medrol) 40 mg IVP Q8H TANA Last Admin: 09/15/18 12:55 Dose: Not Given Montelukast Sodium (Singulair) 10 mg PO HS TANA Last Admin: 09/14/18 21:17 Dose: 10 mg Pantoprazole Sodium (Protonix Inj) 20 mg IVP DAILY [facility] Physical Exam - Constitutional Appears: Non-toxic, No Acute Distress - Head Exam Head Exam: ATRAUMATIC, NORMOCEPHALIC - Eye Exam Eye Exam: EOMI, Normal appearance - ENT Exam ENT Exam: Mucous Membranes Moist - Respiratory Exam Respiratory Exam: Decreased Breath Sounds Additional comments: Intubated - Cardiovascular Exam Cardiovascular Exam: REGULAR RHYTHM, +S1, +S2 - GI/Abdominal Exam GI & Abdominal Exam: Normal Bowel Sounds, Soft. absent: Tenderness - Neurological Exam Additional comments: Sedated - Skin Skin Exam: Dry, Intact Results - Vital Signs Recent Vital Signs: Last Vital Signs Temp 97.9 F 09/15/18 16:00 Pulse 125 H 09/15/18 16:00 Resp 33 H 09/15/18 16:00 BP 118/83 09/15/18 15:59 Pulse Ox 94 L 09/15/18 16:00 - Labs Result Diagrams: 09/15/18 11:45 09/15/18 11:45 Labs: Laboratory Results - last 24 hr 09/14/18 09/15/18 09/15/18 08:03 08:34 08:34 WBC 16.9 H RBC 4.24 Hgb 11.1 Hct 33.2 L MCV 78.4 L MCH 26.1 L MCHC 33.3 RDW 16.4 H Plt Count 301 MPV 9.5 Neut % (Auto) 90.8 H Lymph % (Auto) 3.1 L [place] % (Auto) 6.1 Eos % (Auto) 0.0 Baso % (Auto) 0.0 Neut # (Auto) 15.3 H Lymph # (Auto) 0.5 L [place] # (Auto) 1.0 H Eos # (Auto) 0.0 Baso # (Auto) 0.0 Neutrophils % (Manual) 88 H Band Neutrophils % 2 Lymphocytes % (Manual) 3 L Monocytes % (Manual) 7 Platelet Estimate Normal Anisocytosis (manual) Slight ESR PT INR APTT Puncture Site pCO2 pO2 HCO3 ABG pH ABG Total CO2 ABG O2 Saturation ABG Base Excess Jose Test ABG Potassium A-a O2 Difference Respiratory Index Glucose Lactate Liter Flow Mechanical Rate FiO2 Tidal Volume PEEP Sodium 137 Potassium 4.0 Chloride 99 Carbon Dioxide 33 H Anion Gap 9 L BUN 27 H Creatinine 0.7 Est GFR ( Amer) > 60 Est GFR (Non-Af Amer) > 60 Random Glucose 173 H D Calcium 9.7 Phosphorus 4.5 Magnesium 2.3 Total Bilirubin 0.6 AST 64 H D ALT 37 Alkaline Phosphatase 130 H D Total Creatine Kinase CK-MB (Mass) Troponin I C-Reactive Protein Total Protein 6.5 Albumin 3.3 L Globulin 3.1 Albumin/Globulin Ratio 1.1 Arterial Blood Potassium IgG IgA IgM [place] Screen Negative 09/15/18 09/15/18 09/15/18 10:11 10:24 11:45 WBC 16.5 H RBC 4.05 Hgb 10.4 L Hct 31.8 L MCV 78.5 L MCH 25.7 L MCHC 32.8 L RDW 16.8 H Plt Count 285 MPV 9.4 Neut % (Auto) 89.5 H Lymph % (Auto) 1.8 L [place] % (Auto) 8.3 Eos % (Auto) 0.0 Baso % (Auto) 0.4 Neut # (Auto) 14.8 H Lymph # (Auto) 0.3 L [place] # (Auto) 1.4 H Eos # (Auto) 0.0 Baso # (Auto) 0.1 Neutrophils % (Manual) Band Neutrophils % Lymphocytes % (Manual) Monocytes % (Manual) Platelet Estimate Anisocytosis (manual) ESR PT INR APTT Puncture Site Rra pCO2 38 pO2 66 L HCO3 29.6 H ABG pH 7.50 H ABG Total CO2 30.8 H ABG O2 Saturation 95.7 ABG Base Excess 6.1 H Jose Test Po ABG Potassium 3.6 A-a O2 Difference 600.0 Respiratory Index 9.1 Glucose 314 H Lactate 4.0 H* Liter Flow 40.0 Mechanical Rate FiO2 100.0 Tidal Volume PEEP Sodium 140.0 Potassium Chloride 102.0 Carbon Dioxide Anion Gap BUN Creatinine Est GFR ( Amer) Est GFR (Non-Af Amer) Random Glucose Calcium Phosphorus Magnesium Total Bilirubin AST ALT Alkaline Phosphatase Total Creatine Kinase 27 L CK-MB (Mass) 3.55 H Troponin I 0.0230 C-Reactive Protein Total Protein Albumin Globulin Albumin/Globulin Ratio Arterial Blood Potassium 3.6 IgG IgA IgM [place] Screen 09/15/18 09/15/18 09/15/18 11:45 11:45 11:45 WBC RBC Hgb Hct MCV MCH MCHC RDW Plt Count MPV Neut % (Auto) Lymph % (Auto) [place] % (Auto) Eos % (Auto) Baso % (Auto) Neut # (Auto) Lymph # (Auto) [place] # (Auto) Eos # (Auto) Baso # (Auto) Neutrophils % (Manual) Band Neutrophils % Lymphocytes % (Manual) Monocytes % (Manual) Platelet Estimate Anisocytosis (manual) ESR 84 H PT INR APTT Puncture Site pCO2 pO2 HCO3 ABG pH ABG Total CO2 ABG O2 Saturation ABG Base Excess Jose Test ABG Potassium A-a O2 Difference Respiratory Index Glucose Lactate Liter Flow Mechanical Rate FiO2 Tidal Volume PEEP Sodium 131 L Potassium 3.8 Chloride 99 Carbon Dioxide 31 H Anion Gap 5 L BUN 27 H Creatinine 0.7 Est GFR ( Amer) > 60 Est GFR (Non-Af Amer) > 60 Random Glucose 255 H D Calcium 9.3 Phosphorus 4.5 Magnesium 2.3 Total Bilirubin 0.5 AST 90 H D ALT 50 Alkaline Phosphatase 131 H Total Creatine Kinase CK-MB (Mass) Troponin I C-Reactive Protein 73.30 H Total Protein 6.2 L Albumin 3.1 L Globulin 3.1 Albumin/Globulin Ratio 1.0 Arterial Blood Potassium IgG IgA IgM [place] Screen 09/15/18 09/15/18 09/15/18 11:45 12:23 12:23 WBC RBC Hgb Hct MCV MCH MCHC RDW Plt Count MPV Neut % (Auto) Lymph % (Auto) [place] % (Auto) Eos % (Auto) Baso % (Auto) Neut # (Auto) Lymph # (Auto) [place] # (Auto) Eos # (Auto) Baso # (Auto) Neutrophils % (Manual) Band Neutrophils % Lymphocytes % (Manual) Monocytes % (Manual) Platelet Estimate Anisocytosis (manual) ESR PT 13.3 H INR 1.2 APTT 21 Puncture Site L/b pCO2 43 pO2 89 HCO3 28.4 H ABG pH 7.44 ABG Total CO2 30.5 H ABG O2 Saturation 98.4 H ABG Base Excess 4.4 H Jose Test Na ABG Potassium 3.2 L A-a O2 Difference 570.0 Respiratory Index 6.4 Glucose 180 H Lactate 2.8 H Liter Flow Mechanical Rate 14 FiO2 100.0 Tidal Volume 350 PEEP 5 Sodium 141.0 Potassium Chloride 105.0 Carbon Dioxide Anion Gap BUN Creatinine Est GFR ( Amer) Est GFR (Non-Af Amer) Random Glucose Calcium Phosphorus Magnesium Total Bilirubin AST ALT Alkaline Phosphatase Total Creatine Kinase CK-MB (Mass) Troponin I C-Reactive Protein Total Protein Albumin Globulin Albumin/Globulin Ratio Arterial Blood Potassium 3.2 L IgG 869.4 IgA 368.2 IgM 101.6 [place] Screen Assessment & Plan - Assessment and Plan (Free Text) Assessment: 68 year old female with hx bronchiectasis, HFrEF in worsening resiratory state, brought to ICU for vent support and close monitoring Pulm Bronchiectasis/Suspected Fibrotic Lung Disease/R Lung Pneumothorax -Noted to have signficant lung disease on prior CT with worsening pneumothorax on CXR -Patient sedated and intubated, on vent -Significant R pneumo on CXR -STAT CT Surgery consult, Dr. Josue for chest tube evaluation --CT chest w/o contrast prior to chest tube placement Cardio Hx HFrEF -C/w HF meds -Strict Is and Os -Cardiology on board PPx -Protonix 20 mg IV daily -ETT in place Assessment and plan discussed with Dr. Venus Nassar, PGY-1 <Rodrigo Donovan M - Last Filed: 09/19/18 20:16> Meds - Medications Medications: Current Medications Albuterol/Ipratropium (Duoneb 3 Mg/0.5 Mg (3 Ml) Ud) 3 ml INH RQ4 TANA Last Admin: 09/19/18 11:22 Dose: Not Given Heparin Sodium (Porcine) (Heparin) 5,000 units SC Q8 TANA Last Admin: 09/19/18 14:27 Dose: 5,000 units Piperacillin Sod/Tazobactam (Sod 3.375 gm/ Sodium Chloride) 100 mls @ 200 mls/hr IVPB Q6H TANA; Protocol Last Admin: 09/19/18 19:23 Dose: 200 mls/hr Vancomycin HCl 1 gm/ Sodium (Chloride) 250 mls @ 166.7 mls/hr IVPB Q24H TANA; Protocol Last Admin: 09/19/18 18:13 Dose: 166.7 mls/hr Propofol (Diprivan) 1,000 mg in 100 mls @ 2.43 mls/hr IV .Q24H PRN; Protocol PRN Reason: TITRATE PER MD ORDER Last Admin: 09/19/18 16:19 Dose: 40 mcg/kg/min, 9.72 mls/hr Norepinephrine Bitartrate 8 mg (/ Dextrose) 250 mls @ 7.5 mls/hr IV .Q24H PRN; Protocol PRN Reason: TITRATE PER MD ORDER Cisatracurium Besylate 100 mg/ (Dextrose) 250 mls @ 17.96 mls/hr IV .[id number] PRN; Protocol PRN Reason: Agitation Last Titration: 09/19/18 10:39 Dose: 3 mcg/kg/min, 17.96 mls/hr Esmolol HCl (Brevibloc) 250 mls @ 5.987 mls/hr IV .Q24H PRN; Protocol PRN Reason: PER TITRATION PROTOCOL Last Admin: 09/19/18 11:44 Dose: 5.987 mls/hr Fentanyl Citrate 2,500 mcg/ (Sodium Chloride) 250 mls @ 19.32 mls/hr IV .[id number] TANA; Protocol Lactobacillus Acidophilus (Lactobacillus) 1 cap PO BID [facility] Last Admin: 09/19/18 18:29 Dose: 1 cap Methylprednisolone (Solu-Medrol) 40 mg IVP Q8H TANA Last Admin: 09/19/18 18:28 Dose: 40 mg Montelukast Sodium (Singulair) 10 mg PO HS [facility] Last Admin: 09/18/18 22:21 Dose: 10 mg Pantoprazole Sodium (Protonix Inj) 40 mg IVP Q12H TANA Last Admin: 09/19/18 08:49 Dose: 40 mg Results - Vital Signs Recent Vital Signs: Last Vital Signs Temp 99.3 F 09/19/18 12:00 Pulse 126 H 09/19/18 19:09 Resp 30 H 09/19/18 16:00 BP 98/64 L 09/19/18 19:09 Pulse Ox 90 L 09/19/18 19:09 - Labs Result Diagrams: 09/19/18 06:12 09/19/18 06:12 Labs: Laboratory Results - last 24 hr 09/19/18 09/19/18 09/19/18 05:23 06:12 06:12 WBC 20.0 H RBC 3.84 Hgb 10.4 L Hct 31.8 L MCV 82.7 MCH 27.2 MCHC 32.8 L RDW 17.7 H Plt Count 244 MPV 10.3 Puncture Site R bra pCO2 66 H pO2 45 L HCO3 33.1 H ABG pH 7.37 ABG Total CO2 40.2 H ABG O2 Saturation 83.7 L ABG Base Excess 10.9 H ABG Hemoglobin 10.2 L ABG Carboxyhemoglobin 2.4 H POC ABG HHb (Measured) 15.8 H ABG Methemoglobin 0.6 Jose Test Na A-a O2 Difference 586.0 Respiratory Index 13.0 Hgb O2 Saturation 81.2 L Vent Mode Prvc Mechanical Rate 25 FiO2 100.0 Tidal Volume 350 PEEP Crit Value Called To Crit Value Called By Crit Value Read Back Blood Gas Notified Time Sodium 148 Potassium 4.5 Chloride 111 H Carbon Dioxide 38 H Anion Gap 3 L BUN 31 H Creatinine 0.7 Est GFR ( Amer) > 60 Est GFR (Non-Af Amer) > 60 POC Glucose (mg/dL) Random Glucose 179 H Calcium 9.2 Phosphorus 2.9 Magnesium 2.6 H Total Bilirubin 0.4 AST 44 H D ALT 28 Alkaline Phosphatase 108 Total Protein 5.5 L Albumin 2.7 L Globulin 2.8 Albumin/Globulin Ratio 1.0 Procalcitonin 09/19/18 09/19/18 09/19/18 10:51 10:55 16:05 WBC RBC Hgb Hct MCV MCH MCHC RDW Plt Count MPV Puncture Site Rba Rba pCO2 > 150 H* 100 H* pO2 54 L 57 L HCO3 29.2 H ABG pH 7.02 L* 7.17 L* ABG Total CO2 39.6 H ABG O2 Saturation 80.1 L 90.4 L ABG Base Excess 5.7 H ABG Hemoglobin 11.0 L 10.1 L ABG Carboxyhemoglobin 2.7 H 2.5 H POC ABG HHb (Measured) 19.2 H 9.3 H ABG Methemoglobin 0.9 0.8 Jose Test Na Na A-a O2 Difference 465.0 531.0 Respiratory Index 8.6 9.3 Hgb O2 Saturation 77.2 L 87.4 L Vent Mode A/c pc Prvc Mechanical Rate 30 30 FiO2 100.0 100.0 Tidal Volume 300 PEEP 5 5 Crit Value Called To Wilmar Urban md Crit Value Called By Becky Pena Crit Value Read Back Y Y Blood Gas Notified Time 1054 1609 Sodium Potassium Chloride Carbon Dioxide Anion Gap BUN Creatinine Est GFR ( Amer) Est GFR (Non-Af Amer) POC Glucose (mg/dL) Random Glucose Calcium Phosphorus Magnesium Total Bilirubin AST ALT Alkaline Phosphatase Total Protein Albumin Globulin Albumin/Globulin Ratio Procalcitonin 0.08 L 09/19/18 18:19 WBC RBC Hgb Hct MCV MCH MCHC RDW Plt Count MPV Puncture Site pCO2 pO2 HCO3 ABG pH ABG Total CO2 ABG O2 Saturation ABG Base Excess ABG Hemoglobin ABG Carboxyhemoglobin POC ABG HHb (Measured) ABG Methemoglobin Jose Test A-a O2 Difference Respiratory Index Hgb O2 Saturation Vent Mode Mechanical Rate FiO2 Tidal Volume PEEP Crit Value Called To Crit Value Called By Crit Value Read Back Blood Gas Notified Time Sodium Potassium Chloride Carbon Dioxide Anion Gap BUN Creatinine Est GFR ( Amer) Est GFR (Non-Af Amer) POC Glucose (mg/dL) 244 H Random Glucose Calcium Phosphorus Magnesium Total Bilirubin AST ALT Alkaline Phosphatase Total Protein Albumin Globulin Albumin/Globulin Ratio Procalcitonin Attending/Attestation - Attestation I have personally seen and examined this patient.: Yes I have fully participated in the care of the patient.: Yes I have reviewed all pertinent clinical information: Yes Notes (Text): 09/15/18 Today: , September 15, 2018 The Patient was seen and examined at the bedside, Medical records reviewed, and management issues were discussed and formulated with the house staff. I have reviewed all the relevant clinical, laboratory, hemodynamic, radiographic data and medications Events reviewed Pain issues, skin care, head of the bed elevation, glycemic control were addressed. Agree with above resident's assessment and treatment plans of care as transcribed in Dr. Nassar's note.
[2018-09-15] MEDS: Lactobacillus Acidophilus 500 MU Cap PO SCH (17:35)
--- NOTE | 2018-09-15 17:52 | CT ---
Date of service: 09/15/2018 CT chest with IV contrast Indication: pneumothorax, evaluate for chest tube placement Technique: Contiguous axial images were obtained through the chest with intravenous contrast enhancement. Sagittal and coronal reconstructions were generated and reviewed. This CT exam was performed using 1 or more of the following dose reduction techniques: Automated exposure control, adjustment of the MAA and/or kV according to patient size, and/or use of iterative reconstruction technique. IV contrast: 100 mL Omnipaque 350 IV Radiation dose (DLP): 174.26 MGy-cm. Comparison: Numerous prior chest x-rays, most recent performed 09/15/18. CT of the chest without IV contrast performed 09/11/18 Findings: Tracheostomy tube. Nasogastric tube extends to the stomach. Visualized portions of the inferior thyroid gland appear unremarkable. The mediastinal and hilar vascular structures appear within normal limits. The heart appears within normal limits of size. Scattered atherosclerotic calcifications. Filling defects identified within left lower lobe pulmonary artery branch branches consistent with pulmonary emboli. No large central pulmonary embolus. Extensive patchy mottled airspace opacities/infiltrates as well extensive diffuse bronchiectasis/cystic formation. Moderate left-sided pneumothorax. No acute osseous abnormality is detected. Impression: Tracheostomy tube. Nasogastric tube extends to the stomach. Filling defects identified within left lower lobe pulmonary artery branch branches consistent with pulmonary emboli. Moderate left-sided pneumothorax. Extensive patchy mottled airspace opacities/infiltrates as well extensive diffuse bronchiectasis/cystic formation. Findings discussed with KELLY Campos on 09/15/18 at 538 p.m.
[2018-09-15] MEDS ORDERED: Sodium Chloride 0.9% 500 ML IV ONE (19:13)
[2018-09-15] MEDS ORDERED: Sodium Chloride 0.9% 1,000 ML IV ONE (19:58)
[2018-09-15] MEDS: Enoxaparin 40 mg Syringe SC SCH (23:45)
[2018-09-16] MEDS: Acetylcysteine 20% Inhal Soln (4ml) INH SCH ×6 (00:18→19:43)
[2018-09-16] MEDS: Albuterol-Ipratrop 3 mg / 0.5 (3 ml) UD INH SCH ×6 (00:18→19:43)
--- NOTE | 2018-09-16 00:39 | PCM.PROC ---
Procedures Attestation:: I certify that I have explained the specified Operation(s) or Procedure(s), risks, benefits and reasonable alternatives to the Patient and/or other person responsible. The opportunity was given to ask questions and all questions answered - Arterial Line Right Radial Aseptic technique was employed throughout the procedure: Hand Hygiene done prior to procedure, Full sterile barriers (mask, hair cover, sterile gown, sterile gloves), Chloraprep Antiseptic: 30 second prep for IJ or SC sites Time Out Performed: Yes Pt. placed on Pulse Ox Monitor: Yes Central Line Prep: Chlorhexidine-Alcohol Combination Local Anesthesia Used: Lidocaine 1% Amount of Anesthesia Used (mls): 3 Ultrasound Used for Placement: Yes Gauge (Size): 20 gauge Technique Used: Guide Wire Technique Secured by: Suture Post procedure dressing: Clear vapor permeable, Chlorhexidine disc (Biopatch) Patient Tolerated Procedure: no complications Immediate Complications: none Additional Comments: Patient required A-Line to be flushed numerous times, continued to have good waveform. Noticed patient to be easily clotting - Central Line Placement Left Internal Jugular Triple Lumen Catheter Aseptic technique was employed throughout the procedure: Hand Hygiene done prior to procedure, Full sterile barriers (mask, hair cover, sterile gown, sterile gloves), Full body sterile drape, Chloraprep Antiseptic: 30 second prep for IJ or SC sites CVP Time Out Performed: Yes Pt. Placed on Pulse Ox Monitor: Yes Central Line Prep: Povidone-Iodine 1% Local Anesthesia Used: Lidocaine 1% Amount of Anesthesia Used (mls): 3 Ultrasound Used for Placement: Yes Central Line Lumen Inserted: triple Central Line Length: 20 cm Post Procedure: Sutured in Place, All Ports Aspirated, Flushed, Capped, Sterile Dressing Applied Secured by: Suture Post procedure dressing: Clear vapor permeable, Chlorhexidine disc (Biopatch) Post Procedure X-Ray: Yes Patient Tolerated Procedure: Other (left subclavian was attempted; unsuccessful then proceeded Left IJ and successful w/ US) Immediate Complications: None - Chest Tube Chest Tube Location: Mid-Axillary Left Size of Tube (cm): 28 Chest Tube Procedure: Chlorhexidine Tube Sutured to Skin: Yes Sterile Dressing Applied: Yes Anesthesia: Lidocaine 1% Volume Anesthetic (mls): 5 Incision Made With: #11 blade Post Procedure: sutured to skin, sterile dressing applied, air occlusive dressing [place] of Air [place]: Yes Tube Drainage: other (Air) Amount of Initial Drainage: 0 Post Procedure CXR?: Yes Patient Tolerated Procedure: Yes Progress: Initially attempted pigtail catheter, however unable to pass guidewire safely, converted to open thoracostomy tube placement 28F tube placement
[2018-09-16] MEDS: MethylPREDNISolone 40 mg Vial IVP SCH ×3 (01:45→17:48)
[2018-09-16] MEDS: Propofol 10 mg/ml 1,000 MG/100 ML VIAL IV PRN ×2 (03:15→13:30)
[2018-09-16] MEDS: Piperacillin/Tazobact 3.375 GM in Sodium Chloride 100 ML IVPB SCH ×4 (05:30→19:26)
[2018-09-16 05:42] LABS: ARTERIAL BLOOD GAS HCO3 28.7 mmol/L (21-28); ARTERIAL BLOOD GAS HEMOGLOBIN 11.5 g/dL (11.7-17.4); ARTERIAL BLOOD GAS PCO2 76 mm/Hg (35-45); ARTERIAL BLOOD GAS PH 7.26 (7.35-7.45); ARTERIAL BLOOD GAS PO2 74 mm/Hg (80-100); ARTERIAL BLOOD GAS TCO2 36.4 mmol/L (22-28)
[2018-09-16 06:12] LABS: URINE BILIRUBIN NEGATIVE (NEGATIVE); URINE CLARITY Clear (Clear); URINE COLOR Yellow (YELLOW); URINE GLUCOSE (UA) NORMAL (Normal); URINE LEUKOCYTE ESTERASE NEG Leu/uL (Negative); URINE PROTEIN NEGATIVE (NEGATIVE); URINE UROBILINOGEN NORMAL mg/dL (0.2-1.0)
[2018-09-16 06:22] LABS: BASO % 0.1 % (0.0-2.0); HEMOGLOBIN 9.7 g/dL (11.0-16.0); LYMPH # 0.3 K/uL (1.0-4.3); LYMPH % 1.9 % (20.0-40.0); MEAN CELL VOLUME 78.7 fL (81.0-99.0); MEAN CORPUSCULAR HEMOGLOBIN 25.4 pg (27.0-31.0); MEAN CORPUSCULAR HGB CONC 32.3 g/dL (33.0-37.0); MEAN PLATELET VOLUME 9.6 fL (7.2-11.7); MONO # 0.7 K/uL (0.0-0.8); MONO % 4.1 % (0.0-10.0); NEUT % 93.9 % (50.0-75.0); PLATELET COUNT 240 K/uL (130-400); RED CELL DISTRIBUTION WIDTH 17.2 % (11.5-14.5); WHITE BLOOD COUNT 17.1 K/uL (4.8-10.8)
[2018-09-16 06:32] LABS: URINE BLOOD NEGATIVE (NEGATIVE)
[2018-09-16 07:03] LABS: ALBUMIN 2.9 g/dL (3.5-5.0); ALT/SGPT 47 U/L (9-52); AST/SGOT 86 U/L (14-36); BLOOD UREA NITROGEN 26 mg/dL (7-17); CALCIUM 8.8 mg/dl (8.6-10.4); GFR NON-AFRICAN AMERICAN > 60
[2018-09-16 08:24] LABS: ANISOCYTOSIS SLIGHT; BANDS 2 % (0-2); LYMPHOCYTE 4 % (20-40); MONOCYTE 1 % (0-10); NEUTROPHIL 93 % (50-75); PLATELET ESTIMATE NORMAL (NORMAL); POIKILOCYTOSIS SLIGHT; TOTAL CELLS COUNTED 100
[2018-09-16 08:25] LABS: GIANT PLATELETS PRESENT; HYPOCHROMIC SLIGHT; LARGE PLATELETS PRESENT
[2018-09-16] MEDS: Fluticasone-Vilanterol 100/25mcg Diskus INH SCH (08:25)
[2018-09-16] MEDS ORDERED: EPINEPHrine 1 mg/ml (1:1000) Inj ONE ×2 (08:28→17:07)
[2018-09-16] MEDS ORDERED: Lidocaine 2% MPF (5 ml) Inj ONE ×2 (08:28→17:07)
--- NOTE | 2018-09-16 08:29 | CP.PCM.PN ---
Subjective - Date & Time of Evaluation Date of Evaluation: 09/16/18 Time of Evaluation: 06:00 - Subjective Subjective: Thoracic Surgery Progress note- Dr. Cantrell Patient seen and examined Intubated and sedated on Propofol 30 Fentanyl 120 PRVC 350/20/100/5 saturating 97%. s/p Left Chest tube insertion. 20cc serosang fluid, small air leak detected on suction. L. IJ TLC placed and R. Radial A-line placed yesterday. MAP 65-79 w/ good wave form. Vanessa in place making adequate urine. Patient has PE currently on Therapeutic Lovenox. Objective - Vital Signs/Intake and Output Vital Signs (last 24 hours): Temp Pulse Resp BP Pulse Ox 98.3 F 114 H 18 90/58 L 97 09/16/18 08:00 09/16/18 08:02 09/16/18 08:02 09/16/18 08:02 09/16/18 08:02 Intake and Output: 09/16/18 09/16/18 06:59 18:59 Intake Total 2179.9 93.1 Output Total 1443 30 Balance 736.9 63.1 - Medications Medications: Current Medications Acetylcysteine (Acetylcysteine 20%) 4 ml INH RQ4 [facility] Last Admin: 09/16/18 03:04 Dose: 4 ml Albuterol/Ipratropium (Duoneb 3 Mg/0.5 Mg (3 Ml) Ud) 3 ml INH RQ4 [facility] Last Admin: 09/16/18 03:04 Dose: 3 ml Carvedilol (Coreg) 3.125 mg PO BID [facility] Last Admin: 09/15/18 17:36 Dose: 3.125 mg Enoxaparin Sodium (Lovenox) 40 mg SC Q12 [facility] Last Admin: 09/15/18 23:45 Dose: 40 mg Fluticasone/Vilanterol (Breo Ellipta 100-25 Mcg Inh) 1 puff INH RQD [facility] Last Admin: 09/16/18 08:25 Dose: Not Given Furosemide (Lasix) 20 mg PO DAILY [facility] Last Admin: 09/15/18 13:25 Dose: 20 mg Guaifenesin (Mucinex La) 600 mg PO BID [facility] Last Admin: 09/15/18 17:35 Dose: 600 mg Piperacillin Sod/Tazobactam (Sod 3.375 gm/ Sodium Chloride) 100 mls @ 200 mls/hr IVPB Q6H [facility]; Protocol Last Admin: 09/16/18 05:30 Dose: 200 mls/hr Vancomycin HCl 1 gm/ Sodium (Chloride) 250 mls @ 166.7 mls/hr IVPB Q24H [facility]; Protocol Last Admin: 09/15/18 17:36 Dose: 166.7 mls/hr Propofol (Diprivan) 1,000 mg in 100 mls @ 1.138 mls/hr IV .Q24H PRN; Protocol PRN Reason: TITRATE PER MD ORDER Last Titration: 09/16/18 08:00 Dose: 30 mcg/kg/min, 6.826 mls/hr Fentanyl Citrate 2,500 mcg/ (Sodium Chloride) 250 mls @ 8.26 mls/hr IV .Q24H [facility]; Protocol Last Titration: 09/16/18 02:00 Dose: 3 mcg/kg/hr, 12.39 mls/hr Lactobacillus Acidophilus (Lactobacillus) 1 cap PO BID [facility] Last Admin: 09/15/18 17:35 Dose: 1 cap Methylprednisolone (Solu-Medrol) 40 mg IVP Q8H [facility] Last Admin: 09/16/18 01:45 Dose: 40 mg Montelukast Sodium (Singulair) 10 mg PO HS [facility] Last Admin: 09/15/18 23:00 Dose: 10 mg Pantoprazole Sodium (Protonix Inj) 20 mg IVP DAILY [facility] - Labs Labs: 09/16/18 06:15 09/16/18 06:15 PT 13.3 SECONDS (9.7-12.2) H 09/15/18 12:23 INR 1.2 09/15/18 12:23 APTT 21 SECONDS (21-34) 09/15/18 12:23 - Constitutional Appears: Non-toxic, Chronically Ill - Head Exam Head Exam: ATRAUMATIC - Eye Exam Eye Exam: absent: Scleral icterus - ENT Exam ENT Exam: Mucous Membranes Moist - Respiratory Exam Respiratory Exam: Decreased Breath Sounds (left). absent: Accessory Muscle Use, Respiratory Distress Additional comments: Intubated on PRVC Left Chest tube in place, to suction- small airleak - Cardiovascular Exam Cardiovascular Exam: absent: Bradycardia, Tachycardia - GI/Abdominal Exam GI & Abdominal Exam: Soft. absent: Firm, Guarding, Rigid, Tenderness - Extremities Exam Additional comments: R. Radial A line L.IJ TLC - Neurological Exam Neurological Exam: Awake Additional comments: RAAS -2 - Skin Skin Exam: Intact, Warm Assessment and Plan - Assessment and Plan (Free Text) Assessment: 68F w/ bronchiectasis and left sided pneumothorax s/p bedside chest tube thoracostomy POD1 Plan: - Monitor O2 Saturation - Chest tube to suction - monitor output - plan for Bronch by critical care team - continued management per Critical Care team - further recs per Dr. Cantrell Surgica Attending PGY2
--- NOTE | 2018-09-16 09:07 | RAD ---
Date of service: 09/16/2018 HISTORY: vent COMPARISON: Comparison chest 09/16/2018 at 0215 hr.. Comparison also made with chest radiograph and CT chest both dated 09/15/18. TECHNIQUE: 1 view obtained. FINDINGS: In situ ETT, tip of which lies approximately 2.4 cm above shaun. NGT is present, tip of which overlies left lateral mid abdomen. No change left IJ central line with tip in the brachiocephalic/SVC junction.. In situ left-sided chest tube similar in appearance and location LUNGS: Diffuse patchy bilateral infiltrates. Left-sided pneumothorax and small left-sided effusion (hydropneumothorax) less well seen on this exam as compared to high-resolution CT scan; and presumably has diminished in size PLEURA: As above. CARDIOVASCULAR: No aortic atherosclerotic calcification present. Normal cardiac size. No pulmonary vascular congestion. OSSEOUS STRUCTURES: No significant abnormalities. VISUALIZED UPPER ABDOMEN: Normal. OTHER FINDINGS: Subcutaneous emphysema also improved. IMPRESSION: Support lines and tubes as above. Diffuse patchy bilateral infiltrates. Left-sided pneumothorax and small left-sided effusion (hydropneumothorax) less well seen on this exam as compared to high-resolution CT scan; and presumably has diminished in size
--- NOTE | 2018-09-16 09:16 | RAD ---
Chest x-ray single frontal view HISTORY: Pigtail catheter insertion. COMPARISON: 09/15/2018 Findings: Interval insertion of a left-sided chest tube. Persistent moderate left-sided pneumothorax. Other lines and tubes are in stable position. Redemonstration of diffuse interstitial thickening and honeycombing in both lungs with superimposed multifocal airspace disease. Cardiomegaly. Degenerative changes in the spine and shoulders. Impression: Interval insertion of a left-sided chest tube. Persistent moderate left-sided pneumothorax. Other lines and tubes are in stable position. Redemonstration of diffuse interstitial thickening and honeycombing in both lungs with superimposed multifocal airspace disease. Cardiomegaly.
--- NOTE | 2018-09-16 09:18 | RAD ---
Chest x-ray single frontal view Triple-lumen catheter placement. COMPARISON: 09/15/2018 Findings: Interval placement of a left-sided triple-lumen catheter tip extending into the right SVC. Left-sided chest tubes with residual small left pneumothorax. Other lines and tubes in stable position. No significant interval change in diffuse multifocal airspace opacities/consolidation. Cardiomegaly. Degenerative changes in the spine. Impression: Interval placement of a left-sided triple-lumen catheter tip extending into the right SVC. Left-sided chest tubes with residual small left pneumothorax. Other lines and tubes in stable position. No significant interval change in diffuse multifocal airspace opacities/consolidation. Cardiomegaly.
--- NOTE | 2018-09-16 09:19 | CP.PCM.PN ---
Subjective - Date & Time of Evaluation Date of Evaluation: 09/16/18 Time of Evaluation: 09:00 - Subjective Subjective: Hospitalist Progress Note Patient was seen and examined at 9:00 AM 09/16/18 ICU Bed #16 [employer] on 09/15/18 that lead to patient being intubated and placed on Welder Operator Ventilation CT Chest 09/15/18 indicated PE in LLL and patient currently on Lovenox 40 mg SC Q12H F/U Bilateral Venous Dopplers LE F/U Sputum Studies: Sputum Culture, Fungus Culture, and Mycobacterium Culture Urine Culture Clean Catch 09/15/18 indicated Fungus. However this could be contamination. F/U Catheterized Urine Culture 09/16/18 Leukocytosis: elevation secondary to Solumedrol vs Infection? On Vancomycin and Zosyn. Blood Culture 09/10/18 finalized at 5 days as negative. F/U pending Sputum Cultures mentioned above. F/U repeat Catheterized Urine Culture 09/16/18 Patient for Bronchoscopy today with Dr. Bashir: F/U findings Considering patient's Assessment and Plans below, prognosis at this time is poor. Palliative Care Nurse Philomena has been in contact with Gabino Puga and he has been made aware. Patient is currently FULL CODE. General: Unresponsive secondary to intubation on mechanical ventilation HEENT: NCA, Pupils are reactive to light and are equal/round, NO lymphadenopathy, NO thyromegaly Cardio: NS1 and NS2, NO M/R/G Resp: Course breath sounds diffusely GI: BSx4, Soft, ND, NO HSM Ext: NO edema noted, Capillary Refill is 2 seconds, Pulses are strong and equal Neuro: Exam not possible at this time The following are Assessment and Plan that include summary of care up to this point: Assessment/Plan 1. Acute Respiratory Failure Cystic Bronchiectasis, chronic Healthcare associated pneumonis Fibrosis Pneumothorax Assessment/Plan * Pulmonology, Dr. Bashir, consulted help appreciated * CT chest (08/22/18): areas of dense consolidation/atelectasis in the left lung base; progressed 03/01/16. Extensive cystic changes seen throughout the left lung and less so the right upper lobe possibly representing cystic bronchiectasis. Left sided effusion possibly with some loculated components. mucous plugging changes or compressive effects on the proximal branches of the left upper and lower lobe of bronchi. mild fatty hepatic infiltration. gastric wall thickening in part of incomplete distension. markedly distended urinary bladder, rule out urinary retention * ESRL 113, CRP: 193.80, pending BAUTISTA * Patient had refused PA chest x-ray yesterday. Patient refused CT chest overnight. Patient had ABG completed this morning with elevated CO2. Rapid response called September 15, 2018 for acute respiratory distress, tachycardia as well as patient did not look well. Patient noted accessory muscle use. We h ave gotten a chest x-ray for the patient patient is aware that given the respiratory distress that she would likely need to be intubated I have discussed with patient's son at bedside Edd who is aware that patient will likely need to be intubated since we are at maximum support prior to intu bation. Patient transferred to the intensive care unit intubated and will repeat workup plan is for possible bronchoscopy tomorrow with Dr. Bashir on September 16, 2018. * Recent admission labs (08/22-09/03) * ANCA screen is negative * Proteinase 3 <1.0 * myeloperoxidase <1.0 * b DGlucan negative * indeterminate quantiferon * Aspergillus flavus negative * Aspergillus fumigatus negative * Aspergillus niger negative * HIV negative * influenza negative * Hepatitis negative * Rheumatoid factor IgM elevated at 80 * Blood culture (08/22/18): no growth after 5 days X2 * Myobacterial culture (08/23/18): negative for AFB. prelim * Myobacterial culture (08/25/18): negative for AFB. prelim * Myobacterial culture (08/28/18): negative for AFB. prelim * Mycobacterium complex PCR negative * hisplasmosis AB negative, MARY level normal * continue chest physiotherapy, Duonebs q4, singulair 10 mg PO QHS, Breo ellipta once daily, Mucinex 600 mg PO BID, O2 High flow oxygen * Solumedrol 40mg IV Q8H (active since 09/12/18) * CT surgery consult pending family decision regarding open lung biopsy/FNA/bronchoscopy * Son to come later today * ID Dr Land consulted- agrees w/ empiric abx * Patient is high risk given lung and cardiac status for further procedures Hyponatremia (resolved) * Nephro Consulted: Dr. Lindsay - recs appreciated * Improved with PO fluid restriction, should continue the same with goal <1.5L per day; awaiting repeat urine osm; * normalized Abdominal pain, resolved * Likely due to potassium chloride medications pt was discharged with * Abdominal CT with IV contrast prelim reading shows ileus vs developing enteritis; f/u official reading * Leukocytosis likely due to steroid treatment, pt afebrile * Protonix 20 mg PO daily * Given Cipro 400 mg IVPB x 1, Flagyl 500 mg IVPB x 1, Pepcid 20 mg PO, Maalox 30 mL PO in the ED Heart Failure with Reduced Ejection Fraction, chronic * Echocardiogram (08/27/18) left ventricular systolic function is severely impaired. ejection fraction is 25-30%. atrial septum aneurysmal. possible asd? no aortic regurgitation is present. mitral regurgitation is mild to moderate. mild tricuspid regurgitation. mild pulmonary hypertension. * Cardiac cath showed nonischemic cardiomyopathy. Dr. Pedraza, cardiology, evaluated the pt on last admission and recommended medical HFrEF management rather than lifevest/aicd placement. * Continue Carvedilol 3.125 mg PO BID * Losartan 25 mg PO on hold, Aldactone 12.5 mg PO once daily on hold (given borderline potassium level) * Lasix 20mg po daily Leukocytosis * Influenza negative * Zosyn 3.375g IVPB Q6H (active since 09/11/18) * Vancomycin 1 gram IVPB Q24h (active since 09/11/18) * Solumedrol 40mg IVPB Q8H Cachexia * 30lb weight loss in 2 months * Production Designer referral * Ensure Compact TID (660 kcals, 27 gm protein) PPx * DVT ppx: Heparin 5000u SC q12 (refusing), SCDs * GI: Protonix 20mg po daily * Diet: HHD * Aspiration precautions due to increased mucus production * Full code * Palliative care on board * Intubated 09/15/18 Objective - Vital Signs/Intake and Output Vital Signs (last 24 hours): Temp Pulse Resp BP Pulse Ox 98.3 F 114 H 18 90/58 L 97 09/16/18 08:00 09/16/18 08:02 09/16/18 08:02 09/16/18 08:02 09/16/18 08:02 Intake and Output: 09/16/18 09/16/18 06:59 18:59 Intake Total 2179.9 93.1 Output Total 1443 30 Balance 736.9 63.1 - Medications Medications: Current Medications Acetylcysteine (Acetylcysteine 20%) 4 ml INH RQ4 [facility] Last Admin: 09/16/18 03:04 Dose: 4 ml Albuterol/Ipratropium (Duoneb 3 Mg/0.5 Mg (3 Ml) Ud) 3 ml INH RQ4 [facility] Last Admin: 09/16/18 03:04 Dose: 3 ml Carvedilol (Coreg) 3.125 mg PO BID [facility] Last Admin: 09/15/18 17:36 Dose: 3.125 mg Enoxaparin Sodium (Lovenox) 40 mg SC Q12 [facility] Last Admin: 09/15/18 23:45 Dose: 40 mg Fluticasone/Vilanterol (Breo Ellipta 100-25 Mcg Inh) 1 puff INH RQD [facility] Last Admin: 09/16/18 08:25 Dose: Not Given Furosemide (Lasix) 20 mg PO DAILY [facility] Last Admin: 09/15/18 13:25 Dose: 20 mg Guaifenesin (Mucinex La) 600 mg PO BID [facility] Last Admin: 09/15/18 17:35 Dose: 600 mg Piperacillin Sod/Tazobactam (Sod 3.375 gm/ Sodium Chloride) 100 mls @ 200 mls/hr IVPB Q6H [facility]; Protocol Last Admin: 09/16/18 05:30 Dose: 200 mls/hr Vancomycin HCl 1 gm/ Sodium (Chloride) 250 mls @ 166.7 mls/hr IVPB Q24H [facility]; Protocol Last Admin: 09/15/18 17:36 Dose: 166.7 mls/hr Propofol (Diprivan) 1,000 mg in 100 mls @ 1.138 mls/hr IV .Q24H [facility]; Protocol PRN Reason: TITRATE PER MD ORDER Last Titration: 09/16/18 08:00 Dose: 30 mcg/kg/min, 6.826 mls/hr Fentanyl Citrate 2,500 mcg/ (Sodium Chloride) 250 mls @ 8.26 mls/hr IV .Q24H [facility]; Protocol Last Titration: 09/16/18 02:00 Dose: 3 mcg/kg/hr, 12.39 mls/hr Lactobacillus Acidophilus (Lactobacillus) 1 cap PO BID [facility] Last Admin: 09/15/18 17:35 Dose: 1 cap Methylprednisolone (Solu-Medrol) 40 mg IVP Q8H [facility] Last Admin: 09/16/18 01:45 Dose: 40 mg Montelukast Sodium (Singulair) 10 mg PO HS [facility] Last Admin: 09/15/18 23:00 Dose: 10 mg Pantoprazole Sodium (Protonix Inj) 20 mg IVP DAILY [facility] - Labs Labs: 09/16/18 06:15 09/16/18 06:15 PT 13.3 SECONDS (9.7-12.2) H 09/15/18 12:23 INR 1.2 09/15/18 12:23 APTT 21 SECONDS (21-34) 09/15/18 12:23
--- NOTE | 2018-09-16 09:28 | RAD ---
Chest x-ray single frontal view History: Chest tube readjustment. COMPARISON: 09/15/2018 Findings: Redemonstration of the left chest tube with interval decrease of a now tiny left-sided pneumothorax. Other lines and tubes are in stable position. Diffuse pleural parenchymal opacities, not significantly changed. Degenerative changes in the spine. Impression: Redemonstration of the left chest tube with interval decrease of a now tiny left-sided pneumothorax. Other lines and tubes are in stable position. Diffuse pleural parenchymal opacities, not significantly changed.
[2018-09-16] MEDS: Lactobacillus Acidophilus 500 MU Cap PO SCH ×2 (09:47→18:18)
[2018-09-16] MEDS: guaiFENesin 600 mg ER Tab PO SCH (09:47)
[2018-09-16] MEDS: Enoxaparin 40 mg Syringe SC SCH ×2 (09:48→23:00)
--- NOTE | 2018-09-16 10:58 | CARD ---
APPROVED REPORT Date of service: 09/15/2018 EKG Measurement Heart [id number] <Conclusion> Sinus tachycardia Possible Left atrial enlargement Left ventricular hypertrophy Nonspecific ST and T wave abnormality Abnormal ECG
--- NOTE | 2018-09-16 11:32 | CP.PCM.PN ---
Subjective - Date & Time of Evaluation Date of Evaluation: 09/16/18 Time of Evaluation: 11:26 - Subjective Subjective: Pulm Progress Note for Dr. Bashir's service S/E at bedside Remains intubated and on 2 sedative agents S/P chest tube insertion on -12 S/P lovenox intiation due to pulm emboli seen on chest ct findings Objective - Vital Signs/Intake and Output Vital Signs (last 24 hours): Temp Pulse Resp BP Pulse Ox 98.3 F 114 H 18 100/59 L 97 09/16/18 08:00 09/16/18 08:02 09/16/18 08:02 09/16/18 09:46 09/16/18 08:02 Intake and Output: 09/16/18 09/16/18 06:59 18:59 Intake Total 2179.9 138.1 Output Total 1443 45 Balance 736.9 93.1 - Medications Medications: Current Medications Acetylcysteine (Acetylcysteine 20%) 4 ml INH RQ4 [facility] Last Admin: 09/16/18 03:04 Dose: 4 ml Albuterol/Ipratropium (Duoneb 3 Mg/0.5 Mg (3 Ml) Ud) 3 ml INH RQ4 [facility] Last Admin: 09/16/18 03:04 Dose: 3 ml Carvedilol (Coreg) 3.125 mg PO BID [facility] Last Admin: 09/16/18 10:00 Dose: Not Given Enoxaparin Sodium (Lovenox) 40 mg SC Q12 [facility] Last Admin: 09/16/18 09:48 Dose: 40 mg Fluticasone/Vilanterol (Breo Ellipta 100-25 Mcg Inh) 1 puff INH RQD [facility] Last Admin: 09/16/18 08:25 Dose: Not Given Furosemide (Lasix) 20 mg PO DAILY [facility] Last Admin: 09/16/18 09:46 Dose: 20 mg Guaifenesin (Mucinex La) 600 mg PO BID [facility] Last Admin: 09/16/18 09:47 Dose: 600 mg Piperacillin Sod/Tazobactam (Sod 3.375 gm/ Sodium Chloride) 100 mls @ 200 mls/hr IVPB Q6H [facility]; Protocol Last Admin: 09/16/18 05:30 Dose: 200 mls/hr Vancomycin HCl 1 gm/ Sodium (Chloride) 250 mls @ 166.7 mls/hr IVPB Q24H [facility]; Protocol Last Admin: 09/15/18 17:36 Dose: 166.7 mls/hr Propofol (Diprivan) 1,000 mg in 100 mls @ 1.138 mls/hr IV .Q24H PRN; Protocol PRN Reason: TITRATE PER MD ORDER Last Titration: 09/16/18 11:00 Dose: 25 mcg/kg/min, 5.688 mls/hr Fentanyl Citrate 2,500 mcg/ (Sodium Chloride) 250 mls @ 8.26 mls/hr IV .Q24H [facility]; Protocol Last Titration: 09/16/18 02:00 Dose: 3 mcg/kg/hr, 12.39 mls/hr Lactobacillus Acidophilus (Lactobacillus) 1 cap PO BID [facility] Last Admin: 09/16/18 09:47 Dose: 1 cap Methylprednisolone (Solu-Medrol) 40 mg IVP Q8H [facility] Last Admin: 09/16/18 09:47 Dose: 40 mg Montelukast Sodium (Singulair) 10 mg PO HS [facility] Last Admin: 09/15/18 23:00 Dose: 10 mg Pantoprazole Sodium (Protonix Inj) 20 mg IVP DAILY [facility] Last Admin: 09/16/18 09:47 Dose: 20 mg - Labs Labs: 09/16/18 06:15 09/16/18 06:15 PT 13.3 SECONDS (9.7-12.2) H 09/15/18 12:23 INR 1.2 09/15/18 12:23 APTT 21 SECONDS (21-34) 09/15/18 12:23 - Constitutional Appears: Cachectic, Chronically Ill - Head Exam Head Exam: NORMAL INSPECTION - ENT Exam ENT Exam: Mucous Membranes Dry - Respiratory Exam Respiratory Exam: Decreased Breath Sounds, Respiratory Distress. absent: Accessory Muscle Use Additional comments: intubated with ET tube - Cardiovascular Exam Cardiovascular Exam: Tachycardia, +S1, +S2 - GI/Abdominal Exam GI & Abdominal Exam: Soft, Normal Bowel Sounds. absent: Distended, Tenderness - Extremities Exam Extremities Exam: Normal Inspection - Neurological Exam Neurological Exam: absent: Alert, Awake - Skin Skin Exam: Dry, Intact, Normal Color Assessment and Plan - Assessment and Plan (Free Text) Assessment: 68 year old female with a PMH of HFrEF, bronchiectasis. Abdominal CT showed a small pneumothorax. Pulmonary team was consulted for bronchiectasis and pneumothorax. Intubated on 09-15 after patient was noted to having increased respiratory distress Plan: Hypoxic respiratory failure ABG consistent with hypoxic respiratory failure Intubated/Sedated; further management as per ICU team Cystic Bronchiectasis Continue current antibiotic therapy of Vanc/Zosyn Continue duoneb, Breo, singular, Mucinex, and IV steriods Continue high flow oxygen. Continue Lasix 20 mg daily Bedside tissue bronchoscope pending Etiology remains unknown (IPF concern vs immunodeficiency) Acute pneumothorax CXR 09/12: pneumothorax improved Repeat imaging on 09-15 shows new pneumothorax on left side, CT chest pending, CT surgery consulted for worsening pnuemothorax Intubated/Sedated see above Chest tube placed on left side CT findings on 09-15 showed moderate pneumo with pulmonary emoblism Pulmonary Emoblism Lovenox 40mg sc q 12 Disposition: intubated; chest tube in place, ICU following, repeat cxr shows pnuemothorax to be resolving PGY-1 rCuz Epps Case d/w Dr. Bashir
--- NOTE | 2018-09-16 13:16 | CP.PCM.PN ---
Subjective - Date & Time of Evaluation Date of Evaluation: 09/16/18 Time of Evaluation: 07:10 - Subjective Subjective: Nephro Progress Note for Dr. Angélica Paul DO, PGY-3 Patient seen and examined at bedside in ICU. Remains intubated and sedated, remains on 100% FiO2. CT chest yesterday notable for worsening pneumothorax, now s/p chest tube (90cc drainage in tube at time of exam). ABG this AM concerning for worsening pCO2 and pO2 despite 100%, prognosis is poor. Objective - Vital Signs/Intake and Output Vital Signs (last 24 hours): Temp Pulse Resp BP Pulse Ox 98.3 F 114 H 18 100/59 L 97 09/16/18 08:00 09/16/18 08:02 09/16/18 08:02 09/16/18 09:46 09/16/18 08:02 Intake and Output: 09/16/18 09/16/18 06:59 18:59 Intake Total 2179.9 138.1 Output Total 1443 45 Balance 736.9 93.1 - Medications Medications: Current Medications Acetylcysteine (Acetylcysteine 20%) 4 ml INH RQ4 [facility] [place] Last Admin: 09/16/18 03:04 Dose: 4 ml Albuterol/Ipratropium (Duoneb 3 Mg/0.5 Mg (3 Ml) Ud) 3 ml INH RQ4 [facility] [place] Last Admin: 09/16/18 03:04 Dose: 3 ml Carvedilol (Coreg) 3.125 mg PO BID [facility] [place] Last Admin: 09/16/18 10:00 Dose: Not Given Enoxaparin Sodium (Lovenox) 40 mg SC Q12 [facility] Last Admin: 09/16/18 09:48 Dose: 40 mg Fluticasone/Vilanterol (Breo Ellipta 100-25 Mcg Inh) 1 puff INH RQD [facility] [place] Last Admin: 09/16/18 08:25 Dose: Not Given Furosemide (Lasix) 20 mg PO DAILY [facility] [place] Last Admin: 09/16/18 09:46 Dose: 20 mg Guaifenesin (Mucinex La) 600 mg PO BID [facility] [place] Last Admin: 09/16/18 09:47 Dose: 600 mg Piperacillin Sod/Tazobactam (Sod 3.375 gm/ Sodium Chloride) 100 mls @ 200 mls/hr IVPB Q6H [facility] [place]; Protocol Last Admin: 09/16/18 05:30 Dose: 200 mls/hr Vancomycin HCl 1 gm/ Sodium (Chloride) 250 mls @ 166.7 mls/hr IVPB Q24H [facility]; Protocol Last Admin: 09/15/18 17:36 Dose: 166.7 mls/hr Propofol (Diprivan) 1,000 mg in 100 mls @ 1.138 mls/hr IV .Q24H PRN; Protocol PRN Reason: TITRATE PER MD ORDER Last Titration: 09/16/18 11:00 Dose: 25 mcg/kg/min, 5.688 mls/hr Fentanyl Citrate 2,500 mcg/ (Sodium Chloride) 250 mls @ 8.26 mls/hr IV .Q24H [facility]; Protocol Last Titration: 09/16/18 02:00 Dose: 3 mcg/kg/hr, 12.39 mls/hr Lactobacillus Acidophilus (Lactobacillus) 1 cap PO BID [facility] Last Admin: 09/16/18 09:47 Dose: 1 cap Methylprednisolone (Solu-Medrol) 40 mg IVP Q8H [facility] Last Admin: 09/16/18 09:47 Dose: 40 mg Montelukast Sodium (Singulair) 10 mg PO HS [facility] Last Admin: 09/15/18 23:00 Dose: 10 mg Pantoprazole Sodium (Protonix Inj) 20 mg IVP DAILY [facility] Last Admin: 09/16/18 09:47 Dose: 20 mg - Labs Labs: 09/16/18 06:15 09/16/18 06:15 PT 13.3 SECONDS (9.7-12.2) H 09/15/18 12:23 INR 1.2 09/15/18 12:23 APTT 21 SECONDS (21-34) 09/15/18 12:23 - Additional Findings Additional findings: - Constitutional Appears: Chronically Ill, Frail-appearing, Intubate/sedated - Head Exam Head Exam: ATRAUMATIC, NORMAL INSPECTION, NORMOCEPHALIC - Eye Exam Eye Exam: Normal appearance. absent: Conjunctival injection, Scleral icterus - ENT Exam ENT Exam: Intubated, ETT in place with securement device - Neck Exam Neck Exam: absent: Thyromegaly - Respiratory Exam Respiratory Exam: intubated and mechanically ventilated, overbreathing the vent, remains on 100% FiO2, diffuse ronchorous breath sounds all pal, no appreciable wheezing - Cardiovascular Exam Cardiovascular Exam: Tachycardia, REGULAR RHYTHM, +S1, +S2. absent: Irregular Rhythm, JVD - GI/Abdominal Exam GI & Abdominal Exam: Soft, Normal bowel sounds - Extremities Exam Extremities Exam: Normal Capillary Refill (+2 radial and dorsalis pedis pulses bilaterally), Normal Inspection. absent: Pedal Edema, Tenderness - Neurological Exam Sedated on propofol, no spontaneous movements appreciated - Psychiatric Exam Unable to assess, sedated on propofol - Skin Skin Exam: Dry, Intact, Normal Color, Warm Assessment and Plan - Assessment and Plan (Free Text) Assessment: This is a 68 yo F with hx of chronic bronchietasis, HFrEF, and previously noted PTX who presented for diffuse epigastric pain, and was found to have hyponatremia of 119. Nephro consulted for management of the hyponatremia. Now intubated and with chest tube due to worsening PTX. Plan: 1) Hypoxic respiratory failure 2/2 worsening pneumothorax with underlying diffuse lung disease 2) Chronic bronchiectasis, possibly cystic bronchiectasis 3) HFrEF 4) Hyponatremia - resolved -Urine studies on admission suggestive of hypovolemic hyponatremia, corrected with initial fluid repletion then fluid restriction with gentle diuresis -Na 140 today -intubated with worsening respiratory status despite 100% FiO2, poor prognosis Patient reviewed and discussed with attending, Dr. Lindsay
--- NOTE | 2018-09-16 14:25 | CP.CCUPN ---
<Jimmy Nassar - Last Filed: 09/16/18 17:00> CCU Objective - Vital Signs / Intake & Output Vital Signs (Last 4 hours): Vital Signs Pulse Resp BP BP Pulse Ox 09/16/18 13:02 144 H 27 H 135/84 09/16/18 13:00 125 H 17 155/87 H 09/16/18 12:02 114 H 14 97/62 L 96 09/16/18 12:00 116 H 18 116/62 96 09/16/18 11:02 113 H 18 90/56 L 97 09/16/18 11:00 112 H 16 100/57 L 97 Intake and Output (Last 8hrs): Intake & Output 09/15/18 09/16/18 09/16/18 22:59 06:59 14:59 Intake Total 2138.2 500.9 231.1 Output Total 0 1443 45 Balance 2138.2 -942.1 186.1 Weight 89 lb 4.595 oz Intake: IV 127 79 90.0 Intake, IV Amount 1911.2 361.9 141.1 Left Distal Port Internal 82.7 86.8 Jugular Left Medial Port Internal 200 Jugular Left Proximal Port 79.2 54.3 Internal Jugular Right Forearm 1820 Right Wrist 91.2 Other 100 60 Output: Chest Tube Drainage 43 Left Mid-Axillary Chest 43 Urine 0 1400 45 2-way Urethral 1400 45 Urine, Voided 0 Other: # Bowel Movements 1 - Medications Active Medications: Active Medications Generic Name Dose Route Start Last Admin Trade Name Freq PRN Reason Stop Dose Admin Acetylcysteine 4 ml 09/15/18 20:00 09/16/18 13:26 Acetylcysteine 20% INH Not Given RQ4 TANA Albuterol/Ipratropium 3 ml 09/12/18 12:00 09/16/18 13:24 Duoneb 3 Mg/0.5 Mg (3 Ml) Ud INH 3 ml RQ4 TANA Administration Carvedilol 3.125 mg 09/11/18 11:02 09/16/18 10:00 Coreg PO Not Given BID TANA Enoxaparin Sodium 40 mg 09/15/18 22:45 09/16/18 09:48 Lovenox SC 40 mg Q12 TANA Administration Fluticasone/Vilanterol 1 puff 09/10/18 08:00 09/16/18 08:25 Breo Ellipta 100-25 Mcg Inh INH Not Given RQD TANA Furosemide 20 mg 09/11/18 15:00 09/16/18 09:46 Lasix PO 20 mg DAILY TANA Administration Guaifenesin 600 mg 09/10/18 10:00 09/16/18 09:47 Mucinex La PO 600 mg BID TANA Administration Piperacillin Sod/Tazobactam 100 mls @ 200 mls/hr 09/11/18 06:30 09/16/18 05:30 Sod 3.375 gm/ Sodium Chloride IVPB 200 mls/hr Q6H TANA Administration Protocol Vancomycin HCl 1 gm/ Sodium 250 mls @ 166.7 mls/hr 09/11/18 18:15 09/15/18 17:36 Chloride IVPB 166.7 mls/hr Q24H TANA Administration Protocol Propofol 1,000 mg in 100 mls @ 1.138 mls/hr 09/15/18 10:30 09/16/18 13:32 Diprivan IV 30 mcg/kg/min .Q24H PRN 6.826 mls/hr TITRATE PER MD ORDER Titration Protocol 5 MCG/KG/MIN Fentanyl Citrate 2,500 mcg/ 250 mls @ 8.26 mls/hr 09/15/18 23:45 09/16/18 02:00 Sodium Chloride IV 3 mcg/kg/hr .Q24H TANA 12.39 mls/hr Titration Protocol 2 MCG/KG/HR Lactobacillus Acidophilus 1 cap 09/15/18 18:00 09/16/18 09:47 Lactobacillus PO 1 cap BID TANA Administration Methylprednisolone 40 mg 09/12/18 09:45 09/16/18 09:47 Solu-Medrol IVP 40 mg Q8H TANA Administration Montelukast Sodium 10 mg 09/10/18 22:00 09/15/18 23:00 Singulair PO 10 mg HS TANA Administration Pantoprazole Sodium 20 mg 09/16/18 10:00 09/16/18 09:47 Protonix Inj IVP 20 mg DAILY TANA Administration - Patient Studies Lab Studies: Microbiology Studies 09/15/18 10:53 Fungal Culture - Preliminary Other: Please Indicate 09/14/18 09:08 Urine Culture - Final Urine,Clean Catch Yeast Species Lab Studies 09/16/18 09/16/18 09/16/18 Range/Units 11:25 06:15 06:15 WBC 17.1 H (4.8-10.8) K/uL RBC 3.80 (3.80-5.20) Mil/uL Hgb 9.7 L (11.0-16.0) g/dL Hct 29.9 L (34.0-47.0) % MCV 78.7 L (81.0-99.0) fL MCH 25.4 L (27.0-31.0) pg MCHC 32.3 L (33.0-37.0) g/dL RDW 17.2 H (11.5-14.5) % Plt Count 240 (130-400) K/uL MPV 9.6 (7.2-11.7) fL Neut % (Auto) 93.9 H (50.0-75.0) % Lymph % (Auto) 1.9 L (20.0-40.0) % [place] % (Auto) 4.1 (0.0-10.0) % Eos % (Auto) 0.0 (0.0-4.0) % Baso % (Auto) 0.1 (0.0-2.0) % Neut # (Auto) 16.0 H (1.8-7.0) K/uL Lymph # (Auto) 0.3 L (1.0-4.3) K/uL [place] # (Auto) 0.7 (0.0-0.8) K/uL Eos # (Auto) 0.0 (0.0-0.7) K/uL Baso # (Auto) 0.0 (0.0-0.2) K/uL Neutrophils % (Manual) 93 H (50-75) % Band Neutrophils % 2 (0-2) % Lymphocytes % (Manual) 4 L (20-40) % Monocytes % (Manual) 1 (0-10) % Platelet Estimate Normal (NORMAL) Large Platelets Present Giant Platelets Present Hypochromasia (manual) Slight Poikilocytosis (manual Slight Anisocytosis (manual) Slight Puncture Site pCO2 (35-45) mm/Hg pO2 (80-100) mm/Hg HCO3 (21-28) mmol/L ABG pH (7.35-7.45) ABG Total CO2 (22-28) mmol/L ABG O2 Saturation (95-98) % ABG Base Excess (-2.0-3.0) mmol/L ABG Hemoglobin (11.7-17.4) g/dL ABG Carboxyhemoglobin (0.5-1.5) % POC ABG HHb (Measured) (0.0-5.0) % ABG Methemoglobin (0.0-3.0) % Jose Test A-a O2 Difference mm/Hg Respiratory Index Hgb O2 Saturation (95.0-98.0) % Vent Mode Mechanical Rate FiO2 % Tidal Volume PEEP Crit Value Called To Crit Value Called By Crit Value Read Back Blood Gas Notified Time Sodium 140 (132-148) mmol/L Potassium 4.2 (3.6-5.2) mmol/L Chloride 101 (98-107) mmol/L Carbon Dioxide 37 H (22-30) mmol/L Anion Gap 6 L (10-20) BUN 26 H (7-17) mg/dL Creatinine 0.9 (0.7-1.2) mg/dL Est GFR ( Amer) > 60 Est GFR (Non-Af Amer) > 60 Random Glucose 119 H D (65-105) mg/dL Calcium 8.8 (8.6-10.4) mg/dl Phosphorus 5.5 H (2.5-4.5) mg/dL Magnesium 2.1 (1.6-2.3) mg/dL Total Bilirubin 0.2 (0.2-1.3) mg/dL AST 86 H (14-36) U/L ALT 47 (9-52) U/L Alkaline Phosphatase 116 (38-126) U/L Total Protein 5.8 L (6.3-8.3) g/dL Albumin 2.9 L (3.5-5.0) g/dL Globulin 2.9 (2.2-3.9) gm/dL Albumin/Globulin Ratio 1.0 (1.0-2.1) Procalcitonin 0.24 (0.19-0.49) NG/ML Urine Color (YELLOW) Urine Clarity (Clear) Urine pH (5.0-8.0) Ur Specific [place] (1.003-1.030) Urine Protein (NEGATIVE) mg/dL Urine Glucose (UA) (Normal) mg/dL Urine Ketones (NEGATIVE) mg/dL Urine Blood (NEGATIVE) Urine Nitrate (NEGATIVE) Urine Bilirubin (NEGATIVE) Urine Urobilinogen (0.2-1.0) mg/dL Ur Leukocyte Esterase (Negative) Remy/uL Urine WBC (Auto) (0-5) /hpf Urine RBC (Auto) (0-3) /hpf [place] Screen (Negative) 09/16/18 09/16/18 09/14/18 Range/Units 05:59 05:24 08:03 WBC (4.8-10.8) K/uL RBC (3.80-5.20) Mil/uL Hgb (11.0-16.0) g/dL Hct (34.0-47.0) % MCV (81.0-99.0) fL MCH (27.0-31.0) pg MCHC (33.0-37.0) g/dL RDW (11.5-14.5) % Plt Count (130-400) K/uL MPV (7.2-11.7) fL Neut % (Auto) (50.0-75.0) % Lymph % (Auto) (20.0-40.0) % [place] % (Auto) (0.0-10.0) % Eos % (Auto) (0.0-4.0) % Baso % (Auto) (0.0-2.0) % Neut # (Auto) (1.8-7.0) K/uL Lymph # (Auto) (1.0-4.3) K/uL [place] # (Auto) (0.0-0.8) K/uL Eos # (Auto) (0.0-0.7) K/uL Baso # (Auto) (0.0-0.2) K/uL Neutrophils % (Manual) (50-75) % Band Neutrophils % (0-2) % Lymphocytes % (Manual) (20-40) % Monocytes % (Manual) (0-10) % Platelet Estimate (NORMAL) Large Platelets Giant Platelets Hypochromasia (manual) Poikilocytosis (manual Anisocytosis (manual) Puncture Site [place] pCO2 76 H* (35-45) mm/Hg pO2 74 L (80-100) mm/Hg HCO3 28.7 H (21-28) mmol/L ABG pH 7.26 L (7.35-7.45) ABG Total CO2 36.4 H (22-28) mmol/L ABG O2 Saturation 96.0 (95-98) % ABG Base Excess 5.0 H (-2.0-3.0) mmol/L ABG Hemoglobin 11.5 L (11.7-17.4) g/dL ABG Carboxyhemoglobin 2.6 H (0.5-1.5) % POC ABG HHb (Measured) 3.9 (0.0-5.0) % ABG Methemoglobin 0.6 (0.0-3.0) % Jose Test Na A-a O2 Difference 544.0 mm/Hg Respiratory Index 7.4 Hgb O2 Saturation 92.9 L (95.0-98.0) % Vent Mode Prvc Mechanical Rate 14 FiO2 100.0 % Tidal Volume 350 PEEP 5 Crit Value Called To Daisy rn Crit Value Called By Hollie fur finisher tailor Crit Value Read Back Y Blood Gas Notified Time 542 Sodium (132-148) mmol/L Potassium (3.6-5.2) mmol/L Chloride (98-107) mmol/L Carbon Dioxide (22-30) mmol/L Anion Gap (10-20) BUN (7-17) mg/dL Creatinine (0.7-1.2) mg/dL Est GFR ( Amer) Est GFR (Non-Af Amer) Random Glucose (65-105) mg/dL Calcium (8.6-10.4) mg/dl Phosphorus (2.5-4.5) mg/dL Magnesium (1.6-2.3) mg/dL Total Bilirubin (0.2-1.3) mg/dL AST (14-36) U/L ALT (9-52) U/L Alkaline Phosphatase (38-126) U/L Total Protein (6.3-8.3) g/dL Albumin (3.5-5.0) g/dL Globulin (2.2-3.9) gm/dL Albumin/Globulin Ratio (1.0-2.1) Procalcitonin (0.19-0.49) NG/ML Urine Color Yellow (YELLOW) Urine Clarity Clear (Clear) Urine pH 5.0 (5.0-8.0) Ur Specific [place] 1.032 H (1.003-1.030) Urine Protein Negative (NEGATIVE) mg/dL Urine Glucose (UA) Normal (Normal) mg/dL Urine Ketones Negative (NEGATIVE) mg/dL Urine Blood Negative (NEGATIVE) Urine Nitrate Negative (NEGATIVE) Urine Bilirubin Negative (NEGATIVE) Urine Urobilinogen Normal (0.2-1.0) mg/dL Ur Leukocyte Esterase Neg (Negative) Remy/uL Urine WBC (Auto) 1 (0-5) /hpf Urine RBC (Auto) < 1 (0-3) /hpf [place] Screen Negative (Negative) Laboratory Results - last 24 hr 09/14/18 09/16/18 09/16/18 08:03 05:24 05:59 WBC RBC Hgb Hct MCV MCH MCHC RDW Plt Count MPV Neut % (Auto) Lymph % (Auto) [place] % (Auto) Eos % (Auto) Baso % (Auto) Neut # (Auto) Lymph # (Auto) [place] # (Auto) Eos # (Auto) Baso # (Auto) Neutrophils % (Manual) Band Neutrophils % Lymphocytes % (Manual) Monocytes % (Manual) Platelet Estimate Large Platelets Giant Platelets Hypochromasia (manual) Poikilocytosis (manual Anisocytosis (manual) Puncture Site [place] pCO2 76 H* pO2 74 L HCO3 28.7 H ABG pH 7.26 L ABG Total CO2 36.4 H ABG O2 Saturation 96.0 ABG Base Excess 5.0 H ABG Hemoglobin 11.5 L ABG Carboxyhemoglobin 2.6 H POC ABG HHb (Measured) 3.9 ABG Methemoglobin 0.6 Jose Test Na A-a O2 Difference 544.0 Respiratory Index 7.4 Hgb O2 Saturation 92.9 L Vent Mode Prvc Mechanical Rate 14 FiO2 100.0 Tidal Volume 350 PEEP 5 Crit Value Called To Daisy rn Crit Value Called By Hollie fur finisher tailor Crit Value Read Back Y Blood Gas Notified Time 542 Sodium Potassium Chloride Carbon Dioxide Anion Gap BUN Creatinine Est GFR ( Amer) Est GFR (Non-Af Amer) Random Glucose Calcium Phosphorus Magnesium Total Bilirubin AST ALT Alkaline Phosphatase Total Protein Albumin Globulin Albumin/Globulin Ratio Procalcitonin Urine Color Yellow Urine Clarity Clear Urine pH 5.0 Ur Specific [place] 1.032 H Urine Protein Negative Urine Glucose (UA) Normal Urine Ketones Negative Urine Blood Negative Urine Nitrate Negative Urine Bilirubin Negative Urine Urobilinogen Normal Ur Leukocyte Esterase Neg Urine WBC (Auto) 1 Urine RBC (Auto) < 1 [place] Screen Negative 09/16/18 09/16/18 09/16/18 06:15 06:15 11:25 WBC 17.1 H RBC 3.80 Hgb 9.7 L Hct 29.9 L MCV 78.7 L MCH 25.4 L MCHC 32.3 L RDW 17.2 H Plt Count 240 MPV 9.6 Neut % (Auto) 93.9 H Lymph % (Auto) 1.9 L [place] % (Auto) 4.1 Eos % (Auto) 0.0 Baso % (Auto) 0.1 Neut # (Auto) 16.0 H Lymph # (Auto) 0.3 L [place] # (Auto) 0.7 Eos # (Auto) 0.0 Baso # (Auto) 0.0 Neutrophils % (Manual) 93 H Band Neutrophils % 2 Lymphocytes % (Manual) 4 L Monocytes % (Manual) 1 Platelet Estimate Normal Large Platelets Present Giant Platelets Present Hypochromasia (manual) Slight Poikilocytosis (manual Slight Anisocytosis (manual) Slight Puncture Site pCO2 pO2 HCO3 ABG pH ABG Total CO2 ABG O2 Saturation ABG Base Excess ABG Hemoglobin ABG Carboxyhemoglobin POC ABG HHb (Measured) ABG Methemoglobin Jose Test A-a O2 Difference Respiratory Index Hgb O2 Saturation Vent Mode Mechanical Rate FiO2 Tidal Volume PEEP Crit Value Called To Crit Value Called By Crit Value Read Back Blood Gas Notified Time Sodium 140 Potassium 4.2 Chloride 101 Carbon Dioxide 37 H Anion Gap 6 L BUN 26 H Creatinine 0.9 Est GFR ( Amer) > 60 Est GFR (Non-Af Amer) > 60 Random Glucose 119 H D Calcium 8.8 Phosphorus 5.5 H Magnesium 2.1 Total Bilirubin 0.2 AST 86 H ALT 47 Alkaline Phosphatase 116 Total Protein 5.8 L Albumin 2.9 L Globulin 2.9 Albumin/Globulin Ratio 1.0 Procalcitonin 0.24 Urine Color Urine Clarity Urine pH Ur Specific [place] Urine Protein Urine Glucose (UA) Urine Ketones Urine Blood Urine Nitrate Urine Bilirubin Urine Urobilinogen Ur Leukocyte Esterase Urine WBC (Auto) Urine RBC (Auto) [place] Screen Radiology Impressions: Radiology Impressions Chest CT 09/15/18 13:22 Impression: Tracheostomy tube. Nasogastric tube extends to the stomach. Filling defects identified within left lower lobe pulmonary artery branch branches consistent with pulmonary emboli. Moderate left-sided pneumothorax. Extensive patchy mottled airspace opacities/infiltrates as well extensive diffuse bronchiectasis/cystic formation. Findings discussed with KELLY Campos on 09/15/18 at 538 p.m. Chest X-Ray 09/15/18 21:09 Impression: Interval insertion of a left-sided chest tube. Persistent moderate left-sided pneumothorax. Other lines and tubes are in stable position. Redemonstration of diffuse interstitial thickening and honeycombing in both lungs with superimposed multifocal airspace disease. Cardiomegaly. Chest X-Ray 09/15/18 22:28 Impression: Interval placement of a left-sided triple-lumen catheter tip extending into the right SVC. Left-sided chest tubes with residual small left pneumothorax. Other lines and tubes in stable position. No significant interval change in diffuse multifocal airspace opacities/consolidation. Cardiomegaly. Chest X-Ray 09/16/18 02:01 Impression: Redemonstration of the left chest tube with interval decrease of a now tiny left-sided pneumothorax. Other lines and tubes are in stable position. Diffuse pleural parenchymal opacities, not significantly changed. Chest X-Ray 09/16/18 07:00 IMPRESSION: Support lines and tubes as above. Diffuse patchy bilateral infiltrates. Left-sided pneumothorax and small left-sided effusion (hydropneumothorax) less well seen on this exam as compared to high-resolution CT scan; and presumably has diminished in size Critical Care Progress Note - Nutrition Nutrition: Nutrition Category Date Time Status Heart Healthy Diet [DIET] Diets 09/10/18 Breakfast Active Assessment/Plan - Assessment and Plan (Free Text) Assessment: 68 year old female with hx bronchiectasis, HFrEF in worsening respiratory state, brought to ICU for vent support and close monitoring Pulm Bronchiectasis/Suspected Fibrotic Lung Disease/R Lung Pneumothorax -Noted to have signficant lung disease on prior CT with worsening pneumothorax on CXR -Patient sedated and intubated, on vent -Significant R pneumo on CXR 09/15 -STAT CT Surgery consult, Dr. Josue for chest tube evaluation --S/p pigtail catheter insertion overnight with decrease in size on follow-up x- ray -Patient remains in severe respiratory condition on vent Cardio Hx HFrEF -C/w HF meds -Strict Is and Os -Cardiology on board ID Pneumonia -Patchy bilateral infiltrates on CXR -Abx per ID - Dr. Land --Vanc, Tiffanysyn -Urine growing yeast species 09/14 -Sputum culture - pending PPx -Protonix 20 mg IV daily -ETT in place Assessment and plan discussed with Dr. Mckay Nassar, PGY-1 <Spenser Bashir - Last Filed: 09/16/18 18:11> CCU Subjective - Physician Review Critical Care Time Spent (in minutes): 55 CCU Objective - Vital Signs / Intake & Output Vital Signs (Last 4 hours): Vital Signs Temp Pulse Resp BP BP Pulse Ox 09/16/18 17:02 130 H 16 99/51 L 98 09/16/18 17:00 127 H 20 98/60 L 97 09/16/18 16:02 124 H 16 103/59 L 97 09/16/18 16:00 99.1 F 125 H 26 H 104/60 95 09/16/18 15:02 128 H 15 104/63 98 09/16/18 15:00 126 H 19 102/62 97 Intake and Output (Last 8hrs): Intake & Output 09/16/18 09/16/18 09/16/18 06:59 14:59 22:59 Intake Total 500.9 250.9 309.4 Output Total 1443 45 0 Balance -942.1 205.9 309.4 Weight 89 lb 4.595 oz Intake: IV 79 90.0 Intake, IV Amount 361.9 160.9 309.4 Left Distal Port Internal 82.7 99.2 37.2 Jugular Left Medial Port Internal 200 250 Jugular Left Proximal Port 79.2 61.7 22.2 Internal Jugular Other 60 Output: Chest Tube Drainage 43 Left Mid-Axillary Chest 43 Urine 1400 45 2-way Urethral 1400 45 Stool 0 - Medications Active Medications: Active Medications Generic Name Dose Route Start Last Admin Trade Name Freq PRN Reason Stop Dose Admin Acetylcysteine 4 ml 09/15/18 20:00 09/16/18 13:26 Acetylcysteine 20% INH Not Given RQ4 TANA Albuterol/Ipratropium 3 ml 09/12/18 12:00 09/16/18 13:24 Duoneb 3 Mg/0.5 Mg (3 Ml) Ud INH 3 ml RQ4 TANA Administration Carvedilol 3.125 mg 09/11/18 11:02 09/16/18 10:00 Coreg PO Not Given BID TANA Enoxaparin Sodium 40 mg 09/15/18 22:45 09/16/18 09:48 Lovenox SC 40 mg Q12 TANA Administration Fluticasone/Vilanterol 1 puff 09/10/18 08:00 09/16/18 08:25 Breo Ellipta 100-25 Mcg Inh INH Not Given RQD TANA Furosemide 20 mg 09/11/18 15:00 09/16/18 09:46 Lasix PO 20 mg DAILY TANA Administration Piperacillin Sod/Tazobactam 100 mls @ 200 mls/hr 09/11/18 06:30 09/16/18 12:30 Sod 3.375 gm/ Sodium Chloride IVPB 200 mls/hr Q6H TANA Administration Protocol Vancomycin HCl 1 gm/ Sodium 250 mls @ 166.7 mls/hr 09/11/18 18:15 09/16/18 17:28 Chloride IVPB 166.7 mls/hr Q24H TANA Administration Protocol Propofol 1,000 mg in 100 mls @ 1.138 mls/hr 09/15/18 10:30 09/16/18 13:32 Diprivan IV 30 mcg/kg/min .Q24H PRN 6.826 mls/hr TITRATE PER MD ORDER Titration Protocol 5 MCG/KG/MIN Fentanyl Citrate 2,500 mcg/ 250 mls @ 8.26 mls/hr 09/15/18 23:45 09/16/18 02:00 Sodium Chloride IV 3 mcg/kg/hr .Q24H TANA 12.39 mls/hr Titration Protocol 2 MCG/KG/HR Lactobacillus Acidophilus 1 cap 09/15/18 18:00 09/16/18 09:47 Lactobacillus PO 1 cap BID TANA Administration Methylprednisolone 40 mg 09/12/18 09:45 09/16/18 17:48 Solu-Medrol IVP 40 mg Q8H TANA Administration Montelukast Sodium 10 mg 09/10/18 22:00 09/15/18 23:00 Singulair PO 10 mg HS TANA Administration Pantoprazole Sodium 20 mg 09/16/18 10:00 09/16/18 09:47 Protonix Inj IVP 20 mg DAILY TANA Administration - Patient Studies Lab Studies: Microbiology Studies 09/15/18 11:45 MRSA Culture (Admit) - Final Naris MRSA NOT DETECTED 09/16/18 05:59 Gram Stain - Final Trachasp 09/15/18 10:53 Fungal Culture - Preliminary Other: Please Indicate 09/14/18 09:08 Urine Culture - Final Urine,Clean Catch Yeast Species Lab Studies 09/16/18 09/16/18 09/16/18 Range/Units 11:25 06:15 06:15 WBC 17.1 H (4.8-10.8) K/uL RBC 3.80 (3.80-5.20) Mil/uL Hgb 9.7 L (11.0-16.0) g/dL Hct 29.9 L (34.0-47.0) % MCV 78.7 L (81.0-99.0) fL MCH 25.4 L (27.0-31.0) pg MCHC 32.3 L (33.0-37.0) g/dL RDW 17.2 H (11.5-14.5) % Plt Count 240 (130-400) K/uL MPV 9.6 (7.2-11.7) fL Neut % (Auto) 93.9 H (50.0-75.0) % Lymph % (Auto) 1.9 L (20.0-40.0) % [place] % (Auto) 4.1 (0.0-10.0) % Eos % (Auto) 0.0 (0.0-4.0) % Baso % (Auto) 0.1 (0.0-2.0) % Neut # (Auto) 16.0 H (1.8-7.0) K/uL Lymph # (Auto) 0.3 L (1.0-4.3) K/uL [place] # (Auto) 0.7 (0.0-0.8) K/uL Eos # (Auto) 0.0 (0.0-0.7) K/uL Baso # (Auto) 0.0 (0.0-0.2) K/uL Neutrophils % (Manual) 93 H (50-75) % Band Neutrophils % 2 (0-2) % Lymphocytes % (Manual) 4 L (20-40) % Monocytes % (Manual) 1 (0-10) % Platelet Estimate Normal (NORMAL) Large Platelets Present Giant Platelets Present Hypochromasia (manual) Slight Poikilocytosis (manual Slight Anisocytosis (manual) Slight Puncture Site pCO2 (35-45) mm/Hg pO2 (80-100) mm/Hg HCO3 (21-28) mmol/L ABG pH (7.35-7.45) ABG Total CO2 (22-28) mmol/L ABG O2 Saturation (95-98) % ABG Base Excess (-2.0-3.0) mmol/L ABG Hemoglobin (11.7-17.4) g/dL ABG Carboxyhemoglobin (0.5-1.5) % POC ABG HHb (Measured) (0.0-5.0) % ABG Methemoglobin (0.0-3.0) % Jose Test A-a O2 Difference mm/Hg Respiratory Index Hgb O2 Saturation (95.0-98.0) % Vent Mode Mechanical Rate FiO2 % Tidal Volume PEEP Crit Value Called To Crit Value Called By Crit Value Read Back Blood Gas Notified Time Sodium 140 (132-148) mmol/L Potassium 4.2 (3.6-5.2) mmol/L Chloride 101 (98-107) mmol/L Carbon Dioxide 37 H (22-30) mmol/L Anion Gap 6 L (10-20) BUN 26 H (7-17) mg/dL Creatinine 0.9 (0.7-1.2) mg/dL Est GFR ( Amer) > 60 Est GFR (Non-Af Amer) > 60 Random Glucose 119 H D (65-105) mg/dL Calcium 8.8 (8.6-10.4) mg/dl Phosphorus 5.5 H (2.5-4.5) mg/dL Magnesium 2.1 (1.6-2.3) mg/dL Total Bilirubin 0.2 (0.2-1.3) mg/dL AST 86 H (14-36) U/L ALT 47 (9-52) U/L Alkaline Phosphatase 116 (38-126) U/L Total Protein 5.8 L (6.3-8.3) g/dL Albumin 2.9 L (3.5-5.0) g/dL Globulin 2.9 (2.2-3.9) gm/dL Albumin/Globulin Ratio 1.0 (1.0-2.1) Procalcitonin 0.24 (0.19-0.49) NG/ML Urine Color (YELLOW) Urine Clarity (Clear) Urine pH (5.0-8.0) Ur Specific [place] (1.003-1.030) Urine Protein (NEGATIVE) mg/dL Urine Glucose (UA) (Normal) mg/dL Urine Ketones (NEGATIVE) mg/dL Urine Blood (NEGATIVE) Urine Nitrate (NEGATIVE) Urine Bilirubin (NEGATIVE) Urine Urobilinogen (0.2-1.0) mg/dL Ur Leukocyte Esterase (Negative) Remy/uL Urine WBC (Auto) (0-5) /hpf Urine RBC (Auto) (0-3) /hpf 09/16/18 09/16/18 Range/Units 05:59 05:24 WBC (4.8-10.8) K/uL RBC (3.80-5.20) Mil/uL Hgb (11.0-16.0) g/dL Hct (34.0-47.0) % MCV (81.0-99.0) fL MCH (27.0-31.0) pg MCHC (33.0-37.0) g/dL RDW (11.5-14.5) % Plt Count (130-400) K/uL MPV (7.2-11.7) fL Neut % (Auto) (50.0-75.0) % Lymph % (Auto) (20.0-40.0) % [place] % (Auto) (0.0-10.0) % Eos % (Auto) (0.0-4.0) % Baso % (Auto) (0.0-2.0) % Neut # (Auto) (1.8-7.0) K/uL Lymph # (Auto) (1.0-4.3) K/uL [place] # (Auto) (0.0-0.8) K/uL Eos # (Auto) (0.0-0.7) K/uL Baso # (Auto) (0.0-0.2) K/uL Neutrophils % (Manual) (50-75) % Band Neutrophils % (0-2) % Lymphocytes % (Manual) (20-40) % Monocytes % (Manual) (0-10) % Platelet Estimate (NORMAL) Large Platelets Giant Platelets Hypochromasia (manual) Poikilocytosis (manual Anisocytosis (manual) Puncture Site [place] pCO2 76 H* (35-45) mm/Hg pO2 74 L (80-100) mm/Hg HCO3 28.7 H (21-28) mmol/L ABG pH 7.26 L (7.35-7.45) ABG Total CO2 36.4 H (22-28) mmol/L ABG O2 Saturation 96.0 (95-98) % ABG Base Excess 5.0 H (-2.0-3.0) mmol/L ABG Hemoglobin 11.5 L (11.7-17.4) g/dL ABG Carboxyhemoglobin 2.6 H (0.5-1.5) % POC ABG HHb (Measured) 3.9 (0.0-5.0) % ABG Methemoglobin 0.6 (0.0-3.0) % Jose Test Na A-a O2 Difference 544.0 mm/Hg Respiratory Index 7.4 Hgb O2 Saturation 92.9 L (95.0-98.0) % Vent Mode Prvc Mechanical Rate 14 FiO2 100.0 % Tidal Volume 350 PEEP 5 Crit Value Called To Daisy rn Crit Value Called By Hollie fur finisher tailor Crit Value Read Back Y Blood Gas Notified Time 542 Sodium (132-148) mmol/L Potassium (3.6-5.2) mmol/L Chloride (98-107) mmol/L Carbon Dioxide (22-30) mmol/L Anion Gap (10-20) BUN (7-17) mg/dL Creatinine (0.7-1.2) mg/dL Est GFR ( Amer) Est GFR (Non-Af Amer) Random Glucose (65-105) mg/dL Calcium (8.6-10.4) mg/dl Phosphorus (2.5-4.5) mg/dL Magnesium (1.6-2.3) mg/dL Total Bilirubin (0.2-1.3) mg/dL AST (14-36) U/L ALT (9-52) U/L Alkaline Phosphatase (38-126) U/L Total Protein (6.3-8.3) g/dL Albumin (3.5-5.0) g/dL Globulin (2.2-3.9) gm/dL Albumin/Globulin Ratio (1.0-2.1) Procalcitonin (0.19-0.49) NG/ML Urine Color Yellow (YELLOW) Urine Clarity Clear (Clear) Urine pH 5.0 (5.0-8.0) Ur Specific [place] 1.032 H (1.003-1.030) Urine Protein Negative (NEGATIVE) mg/dL Urine Glucose (UA) Normal (Normal) mg/dL Urine Ketones Negative (NEGATIVE) mg/dL Urine Blood Negative (NEGATIVE) Urine Nitrate Negative (NEGATIVE) Urine Bilirubin Negative (NEGATIVE) Urine Urobilinogen Normal (0.2-1.0) mg/dL Ur Leukocyte Esterase Neg (Negative) Remy/uL Urine WBC (Auto) 1 (0-5) /hpf Urine RBC (Auto) < 1 (0-3) /hpf Laboratory Results - last 24 hr 09/16/18 09/16/18 09/16/18 05:24 05:59 06:15 WBC 17.1 H RBC 3.80 Hgb 9.7 L Hct 29.9 L MCV 78.7 L MCH 25.4 L MCHC 32.3 L RDW 17.2 H Plt Count 240 MPV 9.6 Neut % (Auto) 93.9 H Lymph % (Auto) 1.9 L [place] % (Auto) 4.1 Eos % (Auto) 0.0 Baso % (Auto) 0.1 Neut # (Auto) 16.0 H Lymph # (Auto) 0.3 L [place] # (Auto) 0.7 Eos # (Auto) 0.0 Baso # (Auto) 0.0 Neutrophils % (Manual) 93 H Band Neutrophils % 2 Lymphocytes % (Manual) 4 L Monocytes % (Manual) 1 Platelet Estimate Normal Large Platelets Present Giant Platelets Present Hypochromasia (manual) Slight Poikilocytosis (manual Slight Anisocytosis (manual) Slight Puncture Site [place] pCO2 76 H* pO2 74 L HCO3 28.7 H ABG pH 7.26 L ABG Total CO2 36.4 H ABG O2 Saturation 96.0 ABG Base Excess 5.0 H ABG Hemoglobin 11.5 L ABG Carboxyhemoglobin 2.6 H POC ABG HHb (Measured) 3.9 ABG Methemoglobin 0.6 Jose Test Na A-a O2 Difference 544.0 Respiratory Index 7.4 Hgb O2 Saturation 92.9 L Vent Mode Prvc Mechanical Rate 14 FiO2 100.0 Tidal Volume 350 PEEP 5 Crit Value Called To Daisy rn Crit Value Called By Hollie fur finisher tailor Crit Value Read Back Y Blood Gas Notified Time 542 Sodium Potassium Chloride Carbon Dioxide Anion Gap BUN Creatinine Est GFR ( Amer) Est GFR (Non-Af Amer) Random Glucose Calcium Phosphorus Magnesium Total Bilirubin AST ALT Alkaline Phosphatase Total Protein Albumin Globulin Albumin/Globulin Ratio Procalcitonin Urine Color Yellow Urine Clarity Clear Urine pH 5.0 Ur Specific [place] 1.032 H Urine Protein Negative Urine Glucose (UA) Normal Urine Ketones Negative Urine Blood Negative Urine Nitrate Negative Urine Bilirubin Negative Urine Urobilinogen Normal Ur Leukocyte Esterase Neg Urine WBC (Auto) 1 Urine RBC (Auto) < 1 09/16/18 09/16/18 06:15 11:25 WBC RBC Hgb Hct MCV MCH MCHC RDW Plt Count MPV Neut % (Auto) Lymph % (Auto) [place] % (Auto) Eos % (Auto) Baso % (Auto) Neut # (Auto) Lymph # (Auto) [place] # (Auto) Eos # (Auto) Baso # (Auto) Neutrophils % (Manual) Band Neutrophils % Lymphocytes % (Manual) Monocytes % (Manual) Platelet Estimate Large Platelets Giant Platelets Hypochromasia (manual) Poikilocytosis (manual Anisocytosis (manual) Puncture Site pCO2 pO2 HCO3 ABG pH ABG Total CO2 ABG O2 Saturation ABG Base Excess ABG Hemoglobin ABG Carboxyhemoglobin POC ABG HHb (Measured) ABG Methemoglobin Jose Test A-a O2 Difference Respiratory Index Hgb O2 Saturation Vent Mode Mechanical Rate FiO2 Tidal Volume PEEP Crit Value Called To Crit Value Called By Crit Value Read Back Blood Gas Notified Time Sodium 140 Potassium 4.2 Chloride 101 Carbon Dioxide 37 H Anion Gap 6 L BUN 26 H Creatinine 0.9 Est GFR ( Amer) > 60 Est GFR (Non-Af Amer) > 60 Random Glucose 119 H D Calcium 8.8 Phosphorus 5.5 H Magnesium 2.1 Total Bilirubin 0.2 AST 86 H ALT 47 Alkaline Phosphatase 116 Total Protein 5.8 L Albumin 2.9 L Globulin 2.9 Albumin/Globulin Ratio 1.0 Procalcitonin 0.24 Urine Color Urine Clarity Urine pH Ur Specific [place]anner Urine Protein Urine Glucose (UA) Urine Ketones Urine Blood Urine Nitrate Urine Bilirubin Urine Urobilinogen Ur Leukocyte Esterase Urine WBC (Auto) Urine RBC (Auto) Radiology Impressions: Radiology Impressions Chest X-Ray 09/15/18 21:09 Impression: Interval insertion of a left-sided chest tube. Persistent moderate left-sided pneumothorax. Other lines and tubes are in stable position. Redemonstration of diffuse interstitial thickening and honeycombing in both lungs with superimposed multifocal airspace disease. Cardiomegaly. Chest X-Ray 09/15/18 22:28 Impression: Interval placement of a left-sided triple-lumen catheter tip extending into the right SVC. Left-sided chest tubes with residual small left pneumothorax. Other lines and tubes in stable position. No significant interval change in diffuse multifocal airspace opacities/consolidation. Cardiomegaly. Chest X-Ray 09/16/18 02:01 Impression: Redemonstration of the left chest tube with interval decrease of a now tiny left-sided pneumothorax. Other lines and tubes are in stable position. Diffuse pleural parenchymal opacities, not significantly changed. Chest X-Ray 09/16/18 07:00 IMPRESSION: Support lines and tubes as above. Diffuse patchy bilateral infiltrates. Left-sided pneumothorax and small left-sided effusion (hydropneumothorax) less well seen on this exam as compared to high-resolution CT scan; and presumably has diminished in size Critical Care Progress Note - Nutrition Nutrition: Nutrition Category Date Time Status Heart Healthy Diet [DIET] Diets 09/10/18 Breakfast Active Attending/Attestation - Attestation I have personally seen and examined this patient.: Yes I have fully participated in the care of the patient.: Yes I have reviewed all pertinent clinical information: Yes Notes (Text): 09/16/18 18:09 Patient seen and examined in the intensive care unit. Case discussed with housestaff in the morning rounds. Remained intubated on ventilatory support requiring high FiO2 Status post bronchoscopy with thin clear secretions noted No purulent secretions or any hyperemia seen Findings consistent with CHF Continue diuretics Continue antibiotics
--- NOTE | 2018-09-16 17:21 | CP.PCM.PN ---
Subjective - Date & Time of Evaluation Date of Evaluation: 09/16/18 Time of Evaluation: 09:00 - Subjective Subjective: Remains intubated and on 2 sedative agents S/P chest tube insertion on 4-12 S/P lovenox intiation due to pulm emboli seen on chest ct findings Objective - Vital Signs/Intake and Output Vital Signs (last 24 hours): Temp Pulse Resp BP Pulse Ox 99.1 F 124 H 16 103/59 L 97 09/16/18 16:00 09/16/18 16:02 09/16/18 16:02 09/16/18 16:02 09/16/18 16:02 Intake and Output: 09/16/18 09/16/18 06:59 18:59 Intake Total 2179.9 310.3 Output Total 1443 45 Balance 736.9 265.3 - Medications Medications: Current Medications Acetylcysteine (Acetylcysteine 20%) 4 ml INH RQ4 [facility] Last Admin: 09/16/18 13:26 Dose: Not Given Albuterol/Ipratropium (Duoneb 3 Mg/0.5 Mg (3 Ml) Ud) 3 ml INH RQ4 [facility] Last Admin: 09/16/18 13:24 Dose: 3 ml Carvedilol (Coreg) 3.125 mg PO BID [facility] Last Admin: 09/16/18 10:00 Dose: Not Given Enoxaparin Sodium (Lovenox) 40 mg SC Q12 [facility] Last Admin: 09/16/18 09:48 Dose: 40 mg Fluticasone/Vilanterol (Breo Ellipta 100-25 Mcg Inh) 1 puff INH RQD [facility] Last Admin: 09/16/18 08:25 Dose: Not Given Furosemide (Lasix) 20 mg PO DAILY [facility] Last Admin: 09/16/18 09:46 Dose: 20 mg Guaifenesin (Mucinex La) 600 mg PO BID [facility] Last Admin: 09/16/18 09:47 Dose: 600 mg Piperacillin Sod/Tazobactam (Sod 3.375 gm/ Sodium Chloride) 100 mls @ 200 mls/hr IVPB Q6H [facility]; Protocol Last Admin: 09/16/18 05:30 Dose: 200 mls/hr Vancomycin HCl 1 gm/ Sodium (Chloride) 250 mls @ 166.7 mls/hr IVPB Q24H [facility]; Protocol Last Admin: 09/15/18 17:36 Dose: 166.7 mls/hr Propofol (Diprivan) 1,000 mg in 100 mls @ 1.138 mls/hr IV .Q24H PRN; Protocol PRN Reason: TITRATE PER MD ORDER Last Titration: 09/16/18 13:32 Dose: 30 mcg/kg/min, 6.826 mls/hr Fentanyl Citrate 2,500 mcg/ (Sodium Chloride) 250 mls @ 8.26 mls/hr IV .Q24H [facility]; Protocol Last Titration: 09/16/18 02:00 Dose: 3 mcg/kg/hr, 12.39 mls/hr Lactobacillus Acidophilus (Lactobacillus) 1 cap PO BID [facility] Last Admin: 09/16/18 09:47 Dose: 1 cap Methylprednisolone (Solu-Medrol) 40 mg IVP Q8H [facility] Last Admin: 09/16/18 09:47 Dose: 40 mg Montelukast Sodium (Singulair) 10 mg PO HS [facility] Last Admin: 09/15/18 23:00 Dose: 10 mg Pantoprazole Sodium (Protonix Inj) 20 mg IVP DAILY [facility] Last Admin: 09/16/18 09:47 Dose: 20 mg - Labs Labs: 09/16/18 06:15 09/16/18 06:15 PT 13.3 SECONDS (9.7-12.2) H 09/15/18 12:23 INR 1.2 09/15/18 12:23 APTT 21 SECONDS (21-34) 09/15/18 12:23 - Constitutional Appears: Cachectic, Chronically Ill - Head Exam Head Exam: NORMOCEPHALIC - Eye Exam Eye Exam: absent: Scleral icterus - ENT Exam ENT Exam: Mucous Membranes Dry - Neck Exam Neck Exam: absent: Lymphadenopathy - Respiratory Exam Respiratory Exam: Decreased Breath Sounds - Cardiovascular Exam Cardiovascular Exam: REGULAR RHYTHM - GI/Abdominal Exam GI & Abdominal Exam: Distended, Soft - Rectal Exam Rectal Exam: Deferred - Exam Exam: NORMAL INSPECTION - Extremities Exam Extremities Exam: absent: Pedal Edema - Back Exam Back Exam: absent: CVA tenderness (L), CVA tenderness (R) - Neurological Exam Neurological Exam: Altered - Psychiatric Exam Psychiatric exam: Depressed - Skin Skin Exam: Dry Assessment and Plan (1) Bronchiectasis with (acute) exacerbation Status: Acute (2) Congestive heart failure Status: Acute - Assessment and Plan (Free Text) Assessment: Remains intubated and on 2 sedative agents S/P chest tube insertion on 4-12 S/P lovenox intiation due to pulm emboli seen on chest ct findings IV antibiotics in progress
--- NOTE | 2018-09-16 17:21 | CP.PCM.PN ---
Subjective - Date & Time of Evaluation Date of Evaluation: 09/16/18 Time of Evaluation: 07:05 Objective - Vital Signs/Intake and Output Vital Signs (last 24 hours): Temp Pulse Resp BP Pulse Ox 99.1 F 124 H 16 103/59 L 97 09/16/18 16:00 09/16/18 16:02 09/16/18 16:02 09/16/18 16:02 09/16/18 16:02 Intake and Output: 09/16/18 09/16/18 06:59 18:59 Intake Total 2179.9 310.3 Output Total 1443 45 Balance 736.9 265.3 - Medications Medications: Current Medications Acetylcysteine (Acetylcysteine 20%) 4 ml INH RQ4 [facility] Last Admin: 09/16/18 13:26 Dose: Not Given Albuterol/Ipratropium (Duoneb 3 Mg/0.5 Mg (3 Ml) Ud) 3 ml INH RQ4 [facility] Last Admin: 09/16/18 13:24 Dose: 3 ml Carvedilol (Coreg) 3.125 mg PO BID [facility] Last Admin: 09/16/18 10:00 Dose: Not Given Enoxaparin Sodium (Lovenox) 40 mg SC Q12 [facility] Last Admin: 09/16/18 09:48 Dose: 40 mg Fluticasone/Vilanterol (Breo Ellipta 100-25 Mcg Inh) 1 puff INH RQD [facility] Last Admin: 09/16/18 08:25 Dose: Not Given Furosemide (Lasix) 20 mg PO DAILY [facility] Last Admin: 09/16/18 09:46 Dose: 20 mg Guaifenesin (Mucinex La) 600 mg PO BID [facility] Last Admin: 09/16/18 09:47 Dose: 600 mg Piperacillin Sod/Tazobactam (Sod 3.375 gm/ Sodium Chloride) 100 mls @ 200 mls/hr IVPB Q6H [facility]; Protocol Last Admin: 09/16/18 05:30 Dose: 200 mls/hr Vancomycin HCl 1 gm/ Sodium (Chloride) 250 mls @ 166.7 mls/hr IVPB Q24H [facility]; Protocol Last Admin: 09/15/18 17:36 Dose: 166.7 mls/hr Propofol (Diprivan) 1,000 mg in 100 mls @ 1.138 mls/hr IV .Q24H PRN; Protocol PRN Reason: TITRATE PER MD ORDER Last Titration: 09/16/18 13:32 Dose: 30 mcg/kg/min, 6.826 mls/hr Fentanyl Citrate 2,500 mcg/ (Sodium Chloride) 250 mls @ 8.26 mls/hr IV .Q24H [facility]; Protocol Last Titration: 09/16/18 02:00 Dose: 3 mcg/kg/hr, 12.39 mls/hr Lactobacillus Acidophilus (Lactobacillus) 1 cap PO BID [facility] Last Admin: 09/16/18 09:47 Dose: 1 cap Methylprednisolone (Solu-Medrol) 40 mg IVP Q8H [facility] Last Admin: 09/16/18 09:47 Dose: 40 mg Montelukast Sodium (Singulair) 10 mg PO HS [facility] Last Admin: 09/15/18 23:00 Dose: 10 mg Pantoprazole Sodium (Protonix Inj) 20 mg IVP DAILY [facility] Last Admin: 09/16/18 09:47 Dose: 20 mg - Labs Labs: 09/16/18 06:15 09/16/18 06:15 PT 13.3 SECONDS (9.7-12.2) H 09/15/18 12:23 INR 1.2 09/15/18 12:23 APTT 21 SECONDS (21-34) 09/15/18 12:23
--- NOTE | 2018-09-16 17:41 | PCM.PROC ---
Summary - Summary of Event Summary of Event: ICU Procedure Note for Dr. Mckay Paul DO, PGY-3 Procedure: Bronchoscopy with Broncho-Alveolar Lavage Decision made to undergo Bronch procedure with BAL given patient's lung findings on imaging and overall worsening condition. Consent obtained from pt's son Rommel matson (telephone consent, witnessed by nursing, form in chart) due to patient's intubated status (unable to consent self). Risks and benefits of procedure explained to son, who expressed understanding and agreement. Procedure performed at bedside in the ICU due to patient's condition. Patient already sedated on propofol and fentanyl due to intubation status. Sterile procedure technique observed, including sterile sheet placement, sterile gowning/gloves, face mask utilization, and sterile tool usage. Accessed through ET tube, atraumatic bronch access. Visualized tracheal rings and left & right mainstem bronchi, no trauma/bleeding/purulent secretions appreciated, no gross deformities appreciated. Copious clear secretions present, amenable to suctioning. Advanced into left and right mainstain bronchi, with further copious/clear secretions removed by suctioning. Branches of the right middle lobe accessed and notable for small scattered pinkish secretions adhering to right lateral and medial bronchus benitez at sites of branching off. No purulent or avelino bloody secretions appreciated. Sample from Right Medial bronchus obtained via lavage with sterile saline. Scope after sample obtained, and further clear secretions at site were suctions, scope was then withdrawn without issue. Patient tolerated procedure well. No complications during or immediately after procedure. Will remain in ICU for further management and close monitoring. Procedure overseen in it's entirety by ICU, Dr. Bashir.
[2018-09-16] MEDS ORDERED: Dexmedetomidine Hydrochloride 200 MCG in Sodium Chloride 0.9% 48 ML IV PRN (20:37)
[2018-09-17] MEDS: Propofol 10 mg/ml 1,000 MG/100 ML VIAL IV PRN ×3 (00:20→23:37)
[2018-09-17] MEDS: Albuterol-Ipratrop 3 mg / 0.5 (3 ml) UD INH SCH ×7 (00:27→23:53)
[2018-09-17] MEDS: Acetylcysteine 20% Inhal Soln (4ml) INH SCH ×2 (00:27→04:51)
[2018-09-17] MEDS: Piperacillin/Tazobact 3.375 GM in Sodium Chloride 100 ML IVPB SCH ×4 (00:30→17:36)
[2018-09-17] MEDS: MethylPREDNISolone 40 mg Vial IVP SCH ×3 (00:50→17:37)
[2018-09-17 05:05] LABS: ARTERIAL BLOOD GAS HCO3 29.1 mmol/L (21-28); ARTERIAL BLOOD GAS HEMOGLOBIN 8.2 g/dL (11.7-17.4); ARTERIAL BLOOD GAS O2 SAT 99.3 % (95-98); ARTERIAL BLOOD GAS PCO2 61 mm/Hg (35-45); ARTERIAL BLOOD GAS PH 7.33 (7.35-7.45); ARTERIAL BLOOD GAS PO2 111 mm/Hg (80-100); ARTERIAL BLOOD GAS TCO2 34.1 mmol/L (22-28)
[2018-09-17 06:44] LABS: HEMOGLOBIN 8.7 g/dL (11.0-16.0); LYMPH # 0.6 K/uL (1.0-4.3); LYMPH % 2.7 % (20.0-40.0); MEAN CELL VOLUME 79.3 fL (81.0-99.0); MEAN CORPUSCULAR HEMOGLOBIN 25.4 pg (27.0-31.0); MEAN PLATELET VOLUME 9.6 fL (7.2-11.7); MONO # 0.7 K/uL (0.0-0.8); MONO % 3.2 % (0.0-10.0); NEUT # 20.5 K/uL (1.8-7.0); NEUT % 94.1 % (50.0-75.0); PLATELET COUNT 238 K/uL (130-400); RBC 3.42 Mil/uL (3.80-5.20); RED CELL DISTRIBUTION WIDTH 17.2 % (11.5-14.5); WHITE BLOOD COUNT 21.8 K/uL (4.8-10.8)
[2018-09-17 07:01] LABS: ALBUMIN 2.7 g/dL (3.5-5.0); ALT/SGPT 37 U/L (9-52); AST/SGOT 82 U/L (14-36); BLOOD UREA NITROGEN 30 mg/dL (7-17); CALCIUM 8.9 mg/dl (8.6-10.4); GFR NON-AFRICAN AMERICAN > 60
--- NOTE | 2018-09-17 08:29 | CP.PCM.PN ---
Subjective - Date & Time of Evaluation Date of Evaluation: 09/17/18 Time of Evaluation: 08:00 - Subjective Subjective: Hospitalist Progress Note Patient was seen and examined at 8:00 AM 09/17/18 ICU Bed #16 with the help of Nurse Darrian STEWART on 09/15/18 that lead to patient being intubated and placed on Mechanical Ventilation On Diprivan and Fentanyl CT Chest 09/15/18 indicated PE in LLL and patient currently on Lovenox 40 mg SC Q12H Bilateral Venous Dopplers LE 09/15/18: preliminary report indicates NO DVTs found F/U Sputum Studies: Sputum Culture, and Mycobacterium Culture Sputume Fungus Culture 09/16/18 is negative Urine Culture Clean Catch 09/15/18 indicated Fungus. However this could be contamination. F/U Catheterized Urine Culture 09/16/18 Leukocytosis: elevation secondary to Solumedrol vs Infection? On Vancomycin and Zosyn. Blood Culture 09/10/18 finalized at 5 days as negative. F/U pending Sputum Cultures mentioned above. F/U repeat Catheterized Urine Culture 09/16/18 Bronchoscopy (bedside)with Dr. Bashir 09/16/18: F/U BAL results from the Right Medial Bronchus S/P Left Mid Axillary Chest Tube Placement 09/16/18: from 11 PM 09/16/18 through 7 AM 09/17/18 roughly 70 ml light clear red fluid produced Chest X Ray 09/16/18: diffuse pathcy bilateral infiltrates, left sided pneumothorax and small left sided effusion (hydropneumothorax) less well seen on this exam as compared to high resolution CT Scan and presumably has reduced in size. Chest X Ray 09/17/18: F/U Official reading however it appears that there is a Right Upper Lobe Pneumothorax that has developed since 09/16/18. Disccussed with ICU Physician Dr. Jahaira Adams and will arrange for Chest Tube placement on the Right Considering patient's Assessment and Plans below, prognosis at this time is poor. Palliative Care Nurse Philomena has been in contact with Gabino Puga and he has been made aware. Patient is currently FULL CODE. General: Unresponsive secondary to intubation on mechanical ventilation HEENT: NCA, Pupils are reactive to light and are equal/round, NO ly mphadenopathy, NO thyromegaly Cardio: NS1 and NS2, NO M/R/G Resp: Course breath sounds diffusely GI: BSx4, Soft, ND, NO HSM Ext: NO edema noted, Capillary Refill is 2 seconds, Pulses are strong and equal Neuro: Exam not possible at this time The following are Assessment and Plan that include summary of care up to this point: Assessment/Plan 1. Acute Respiratory Failure Cystic Bronchiectasis, chronic Healthcare associated pneumonis Fibrosis Pneumothorax Assessment/Plan * Pulmonology, Dr. Bashir, consulted help appreciated * CT chest (08/22/18): areas of dense consolidation/atelectasis in the left lung base; progressed 03/01/16. Extensive cystic changes seen throughout the left lung and less so the right upper lobe possibly representing cystic bron chiectasis. Left sided effusion possibly with some loculated components. mucous plugging changes or compressive effects on the proximal branches of the left upper and lower lobe of bronchi. mild fatty hepatic infiltration. gastric wall thickening in part of incomplete distension. markedly distended urinary bladder, rule out urinary retention * ESRL 113, CRP: 193.80, pending BAUTISTA * Patient had refused PA chest x-ray yesterday. Patient refused CT chest overnight. Patient had ABG completed this morning with elevated CO2. Rapid response called September 15, 2018 for acute respiratory distress, tachycardia as well as patient did not look well. Patient noted accessory muscle use. We have gotten a chest x-ray for the patient patient is aware that given the respiratory distress that she would likely need to be intubated I have discussed with patient's son at bedside Edd who is aware that patient will likely need to be intubated since we are at maximum support prior to intubation. Patient transferred to the intensive care unit intubated and will repeat workup plan is for possible bronchoscopy tomorrow with Dr. Bashir on September 16, 2018. * Recent admission labs (08/22-09/03) * ANCA screen is negative * Proteinase 3 <1.0 * myeloperoxidase <1.0 * b DGlucan negative * indeterminate quantiferon * Aspergillus flavus negative * Aspergillus fumigatus negative * Aspergillus niger negative * HIV negative * influenza negative * Hepatitis negative * Rheumatoid factor IgM elevated at 80 * Blood culture (08/22/18): no growth after 5 days X2 * Myobacterial culture (08/23/18): negative for AFB. prelim * Myobacterial culture (08/25/18): negative for AFB. prelim * Myobacterial culture (08/28/18): negative for AFB. prelim * Mycobacterium complex PCR negative * hisplasmosis AB negative, MARY level normal * continue chest physiotherapy, Duonebs q4, singulair 10 mg PO QHS, Breo ellipta once daily, Mucinex 600 mg PO BID, O2 High flow oxygen * Solumedrol 40mg IV Q8H (active since 09/12/18) * CT surgery consult pending family decision regarding open lung biopsy/FNA/bronchoscopy * Son to come later today * ID Dr Land consulted- agrees w/ empiric abx * Patient is high risk given lung and cardiac status for further procedures Hyponatremia (resolved) * [facility] * Improved with PO fluid restriction, should continue the same with goal <1.5L per day; awaiting repeat urine osm; * normalized Abdominal pain, resolved * Likely due to potassium chloride medications pt was discharged with * Abdominal CT with IV contrast prelim reading shows ileus vs developing enteritis; f/u official reading * Leukocytosis likely due to steroid treatment, pt afebrile * Protonix 20 mg PO daily * Given Cipro 400 mg IVPB x 1, Flagyl 500 mg IVPB x 1, Pepcid 20 mg PO, Maalox 30 mL PO in the ED Heart Failure with Reduced Ejection Fraction, chronic * Echocardiogram (08/27/18) left ventricular systolic function is severely impaired. ejection fraction is 25-30%. atrial septum aneurysmal. possible asd? no aortic regurgitation is present. mitral regurgitation is mild to moderate. mild tricuspid regurgitation. mild pulmonary hypertension. * Cardiac cath showed nonischemic cardiomyopathy. Dr. Pedraza, cardiology, eval uated the pt on last admission and recommended medical HFrEF management rather than lifevest/aicd placement. * Continue Carvedilol 3.125 mg PO BID * Losartan 25 mg PO on hold, Aldactone 12.5 mg PO once daily on hold (given borderline potassium level) * Lasix 20mg po daily Leukocytosis * Influenza negative * Zosyn 3.375g IVPB Q6H (active since 09/11/18) * Vancomycin 1 gram IVPB Q24h (active since 09/11/18) * Solumedrol 40mg IVPB Q8H Cachexia * 30lb weight loss in 2 months * Critical Care Nurse referral * Ensure Compact TID (660 kcals, 27 gm protein) PPx * DVT ppx: Heparin 5000u SC q12 (refusing), SCDs * GI: Protonix 20mg po daily * Diet: HHD * Aspiration precautions due to increased mucus production * Full code * Palliative care on board * Intubated 09/15/18 Objective - Vital Signs/Intake and Output Vital Signs (last 24 hours): Temp Pulse Resp BP Pulse Ox 99 F 122 H 12 105/65 100 09/17/18 04:00 09/17/18 07:01 09/17/18 07:01 09/17/18 07:01 09/17/18 07:01 Intake and Output: 09/17/18 09/17/18 06:59 18:59 Intake Total 756.4 23.9 Output Total 1565 75 Balance -808.6 -51.1 - Medications Medications: Current Medications Acetylcysteine (Acetylcysteine 20%) 4 ml INH RQ4 [facility] Last Admin: 09/17/18 04:51 Dose: Not Given Albuterol/Ipratropium (Duoneb 3 Mg/0.5 Mg (3 Ml) Ud) 3 ml INH RQ4 [facility] Last Admin: 09/17/18 04:51 Dose: Not Given Carvedilol (Coreg) 3.125 mg PO BID [facility] Last Admin: 09/16/18 18:16 Dose: Not Given Enoxaparin Sodium (Lovenox) 40 mg SC Q12 [facility] Last Admin: 09/16/18 23:00 Dose: 40 mg Fluticasone/Vilanterol (Breo Ellipta 100-25 Mcg Inh) 1 puff INH RQD [facility] Last Admin: 09/16/18 08:25 Dose: Not Given Furosemide (Lasix) 20 mg PO DAILY [facility] Last Admin: 09/16/18 09:46 Dose: 20 mg Piperacillin Sod/Tazobactam (Sod 3.375 gm/ Sodium Chloride) 100 mls @ 200 mls/hr IVPB Q6H [facility]; Protocol Last Admin: 09/17/18 07:00 Dose: 200 mls/hr Vancomycin HCl 1 gm/ Sodium (Chloride) 250 mls @ 166.7 mls/hr IVPB Q24H [facility]; Protocol Last Admin: 09/16/18 17:28 Dose: 166.7 mls/hr Fentanyl Citrate 2,500 mcg/ (Sodium Chloride) 250 mls @ 8.26 mls/hr IV .Q24H [facility]; Protocol Last Titration: 09/17/18 00:45 Dose: 2 mcg/kg/hr, 8.26 mls/hr Dexmedetomidine HCl 200 mcg/ (Sodium Chloride) 50 mls @ 2.03 mls/hr IV TITR PRN; Protocol PRN Reason: Sedation Last Titration: 09/17/18 02:00 Dose: 0 mcg/kg/hr, 0 mls/hr Propofol (Diprivan) 1,000 mg in 100 mls @ 2.43 mls/hr IV .Q24H PRN; Protocol PRN Reason: TITRATE PER MD ORDER Last Titration: 09/17/18 03:35 Dose: 30 mcg/kg/min, 7.29 mls/hr Lactobacillus Acidophilus (Lactobacillus) 1 cap PO BID [facility] Last Admin: 09/16/18 18:18 Dose: 1 cap Methylprednisolone (Solu-Medrol) 40 mg IVP Q8H [facility] Last Admin: 09/17/18 00:50 Dose: 40 mg Montelukast Sodium (Singulair) 10 mg PO HS [facility] Last Admin: 09/16/18 23:00 Dose: 10 mg Pantoprazole Sodium (Protonix Inj) 20 mg IVP DAILY [facility] Last Admin: 09/16/18 09:47 Dose: 20 mg - Labs Labs: 09/17/18 06:37 09/17/18 06:37 PT 13.3 SECONDS (9.7-12.2) H 09/15/18 12:23 INR 1.2 09/15/18 12:23 APTT 21 SECONDS (21-34) 09/15/18 12:23
[2018-09-17 08:33] LABS: BANDS 1 % (0-2); LYMPHOCYTE 4 % (20-40); MONOCYTE 1 % (0-10); NEUTROPHIL 94 % (50-75); TOTAL CELLS COUNTED 100
[2018-09-17 08:36] LABS: PLATELET ESTIMATE NORMAL (NORMAL)
[2018-09-17 08:37] LABS: ANISOCYTOSIS SLIGHT; HYPOCHROMIC SLIGHT; MICROCYTOSIS SLIGHT; POLYCHROMIC SLIGHT; TARGET CELLS SLIGHT
--- NOTE | 2018-09-17 08:54 | RAD ---
Chest x-ray single frontal view History: Ventilator. Comparison: 09/16/2018 Findings: New small right-sided pneumothorax. Lines and tubes in stable position. Trace left apical pneumothorax. Small left pleural effusion. Dense ill-defined pleural parenchymal opacities in both lung pal. Cardiomegaly. Degenerative changes in the spine and shoulders. Impression: New small right-sided pneumothorax. These critical findings were relayed to Dr. Urban at 8:47 a.m. on 09/17/2018.
[2018-09-17] MEDS: Lactobacillus Acidophilus 500 MU Cap PO SCH ×2 (09:48→17:37)
--- NOTE | 2018-09-17 13:03 | CP.CCUPN ---
CCU Subjective - Physician Review Subjective (Free Text): Patient intubated on ventilator and sedated with IV fentanyl 09/17/18 12:39 Critical Care Time Spent (in minutes): 38 CCU Objective - Vital Signs / Intake & Output Vital Signs (Last 4 hours): Vital Signs Temp Pulse Resp BP BP Pulse Ox 09/17/18 12:01 95 H 20 123/76 96 09/17/18 12:00 97.5 F L 103 H 23 95 09/17/18 11:00 105 H 18 98/59 L 110/52 L 09/17/18 10:00 108 H 20 115/66 105/52 L 98 09/17/18 09:01 113 H 20 104/58 L 98 09/17/18 09:00 114 H 20 100/52 L Intake and Output (Last 8hrs): Intake & Output 09/16/18 09/17/18 09/17/18 22:59 06:59 14:59 Intake Total 643.4 442.2 152.7 Output Total 1060 505 140 Balance -416.6 -62.8 12.7 Weight 92 lb 9.506 oz Intake: IV 235 113 82 Intake, IV Amount 408.4 329.2 70.7 Left Distal Port Internal 99.2 24.5 29.2 Jugular Left Medial Port Internal 250 200 Jugular Left Proximal Port 59.2 70.5 41.5 Internal Jugular Left Proximal Port 34.2 Internal Jugular Y-site Output: Chest Tube Drainage 80 Left Mid-Axillary Chest 80 Drainage 85 Left Chest 85 Urine 975 425 140 2-way Urethral 75 425 140 Urine, Voided 900 Stool 0 - Medications Active Medications: Active Medications Generic Name Dose Route Start Last Admin Trade Name Freq PRN Reason Stop Dose Admin Albuterol/Ipratropium 3 ml 09/12/18 12:00 09/17/18 12:20 Duoneb 3 Mg/0.5 Mg (3 Ml) Ud INH Not Given RQ4 TANA Carvedilol 3.125 mg 09/11/18 11:02 09/17/18 09:48 Coreg PO 3.125 mg BID TANA Administration Enoxaparin Sodium 40 mg 09/15/18 22:45 09/16/18 23:00 Lovenox SC 40 mg Q12 TANA Administration Piperacillin Sod/Tazobactam 100 mls @ 200 mls/hr 09/11/18 06:30 09/17/18 07:00 Sod 3.375 gm/ Sodium Chloride IVPB 200 mls/hr Q6H TANA Administration Protocol Vancomycin HCl 1 gm/ Sodium 250 mls @ 166.7 mls/hr 09/11/18 18:15 09/16/18 17:28 Chloride IVPB 166.7 mls/hr Q24H TANA Administration Protocol Fentanyl Citrate 2,500 mcg/ 250 mls @ 8.26 mls/hr 09/15/18 23:45 09/17/18 00:45 Sodium Chloride IV 2 mcg/kg/hr .Q24H TANA 8.26 mls/hr Titration Protocol 2 MCG/KG/HR Propofol 1,000 mg in 100 mls @ 2.43 mls/hr 09/17/18 00:11 09/17/18 11:18 Diprivan IV 30 mcg/kg/min .Q24H PRN 7.29 mls/hr TITRATE PER MD ORDER Administration Protocol 10 MCG/KG/MIN Lactobacillus Acidophilus 1 cap 09/15/18 18:00 09/17/18 09:48 Lactobacillus PO 1 cap BID TANA Administration Methylprednisolone 40 mg 09/12/18 09:45 09/17/18 09:48 Solu-Medrol IVP 40 mg Q8H TANA Administration Montelukast Sodium 10 mg 09/10/18 22:00 09/16/18 23:00 Singulair PO 10 mg HS TANA Administration Pantoprazole Sodium 40 mg 09/17/18 08:30 09/17/18 09:48 Protonix Inj IVP 40 mg Q12H TANA Administration - Patient Studies Lab Studies: Microbiology Studies 09/16/18 05:59 Urine Culture - Final Urine,Catheterized No Growth (<1,000 CFU/ML) 09/15/18 11:45 MRSA Culture (Admit) - Final Naris MRSA NOT DETECTED 09/16/18 05:59 Gram Stain - Final Trachasp 09/15/18 10:53 Fungal Culture - Preliminary Other: Please Indicate Lab Studies 09/17/18 09/17/18 09/17/18 Range/Units 10:02 08:33 06:37 WBC (4.8-10.8) K/uL RBC (3.80-5.20) Mil/uL Hgb (11.0-16.0) g/dL Hct (34.0-47.0) % MCV (81.0-99.0) fL MCH (27.0-31.0) pg MCHC (33.0-37.0) g/dL RDW (11.5-14.5) % Plt Count (130-400) K/uL MPV (7.2-11.7) fL Neut % (Auto) (50.0-75.0) % Lymph % (Auto) (20.0-40.0) % [place] % (Auto) (0.0-10.0) % Eos % (Auto) (0.0-4.0) % Baso % (Auto) (0.0-2.0) % Neut # (Auto) (1.8-7.0) K/uL Lymph # (Auto) (1.0-4.3) K/uL [place] # (Auto) (0.0-0.8) K/uL Eos # (Auto) (0.0-0.7) K/uL Baso # (Auto) (0.0-0.2) K/uL Neutrophils % (Manual) (50-75) % Band Neutrophils % (0-2) % Lymphocytes % (Manual) (20-40) % Monocytes % (Manual) (0-10) % Platelet Estimate (NORMAL) Polychromasia Hypochromasia (manual) Anisocytosis (manual) Microcytosis (manual) Target Cells Puncture Site pCO2 (35-45) mm/Hg pO2 (80-100) mm/Hg HCO3 (21-28) mmol/L ABG pH (7.35-7.45) ABG Total CO2 (22-28) mmol/L ABG O2 Saturation (95-98) % ABG Base Excess (-2.0-3.0) mmol/L ABG Hemoglobin (11.7-17.4) g/dL ABG Carboxyhemoglobin (0.5-1.5) % POC ABG HHb (Measured) (0.0-5.0) % ABG Methemoglobin (0.0-3.0) % Jose Test A-a O2 Difference mm/Hg Respiratory Index Hgb O2 Saturation (95.0-98.0) % Vent Mode Mechanical Rate FiO2 % Tidal Volume PEEP Sodium 144 (132-148) mmol/L Potassium 4.2 (3.6-5.2) mmol/L Chloride 106 (98-107) mmol/L Carbon Dioxide 32 H (22-30) mmol/L Anion Gap 9 L (10-20) BUN 30 H (7-17) mg/dL Creatinine 0.9 (0.7-1.2) mg/dL Est GFR ( Amer) > 60 Est GFR (Non-Af Amer) > 60 Random Glucose 82 D (65-105) mg/dL Calcium 8.9 (8.6-10.4) mg/dl Phosphorus 3.4 (2.5-4.5) mg/dL Magnesium 2.2 (1.6-2.3) mg/dL Total Bilirubin 0.3 (0.2-1.3) mg/dL AST 82 H (14-36) U/L ALT 37 (9-52) U/L Alkaline Phosphatase 92 (38-126) U/L NT-Pro-B Natriuret Pep 6630 H (0-900) pg/mL Total Protein 5.4 L (6.3-8.3) g/dL Albumin 2.7 L (3.5-5.0) g/dL Globulin 2.7 (2.2-3.9) gm/dL Albumin/Globulin Ratio 1.0 (1.0-2.1) Random Vancomycin 9.5 ug/mL IgE (<gv=583) kU/L 09/17/18 09/17/18 09/16/18 Range/Units 06:37 04:57 06:15 WBC 21.8 H (4.8-10.8) K/uL RBC 3.42 L (3.80-5.20) Mil/uL Hgb 8.7 L (11.0-16.0) g/dL Hct 27.1 L (34.0-47.0) % MCV 79.3 L (81.0-99.0) fL MCH 25.4 L (27.0-31.0) pg MCHC 32.0 L (33.0-37.0) g/dL RDW 17.2 H (11.5-14.5) % Plt Count 238 (130-400) K/uL MPV 9.6 (7.2-11.7) fL Neut % (Auto) 94.1 H (50.0-75.0) % Lymph % (Auto) 2.7 L (20.0-40.0) % [place] % (Auto) 3.2 (0.0-10.0) % Eos % (Auto) 0.0 (0.0-4.0) % Baso % (Auto) 0.0 (0.0-2.0) % Neut # (Auto) 20.5 H (1.8-7.0) K/uL Lymph # (Auto) 0.6 L (1.0-4.3) K/uL [place] # (Auto) 0.7 (0.0-0.8) K/uL Eos # (Auto) 0.0 (0.0-0.7) K/uL Baso # (Auto) 0.0 (0.0-0.2) K/uL Neutrophils % (Manual) 94 H (50-75) % Band Neutrophils % 1 (0-2) % Lymphocytes % (Manual) 4 L (20-40) % Monocytes % (Manual) 1 (0-10) % Platelet Estimate Normal (NORMAL) Polychromasia Slight Hypochromasia (manual) Slight Anisocytosis (manual) Slight Microcytosis (manual) Slight Target Cells Slight Puncture Site [place] pCO2 61 H (35-45) mm/Hg pO2 111 H (80-100) mm/Hg HCO3 29.1 H (21-28) mmol/L ABG pH 7.33 L (7.35-7.45) ABG Total CO2 34.1 H (22-28) mmol/L ABG O2 Saturation 99.3 H (95-98) % ABG Base Excess 5.3 H (-2.0-3.0) mmol/L ABG Hemoglobin 8.2 L (11.7-17.4) g/dL ABG Carboxyhemoglobin 1.7 H (0.5-1.5) % POC ABG HHb (Measured) 0.7 (0.0-5.0) % ABG Methemoglobin 1.1 (0.0-3.0) % Jose Test Na A-a O2 Difference 526.0 mm/Hg Respiratory Index 4.7 Hgb O2 Saturation 96.5 (95.0-98.0) % Vent Mode Prvc Mechanical Rate 20 FiO2 100.0 % Tidal Volume 350 PEEP 5 Sodium (132-148) mmol/L Potassium (3.6-5.2) mmol/L Chloride (98-107) mmol/L Carbon Dioxide (22-30) mmol/L Anion Gap (10-20) BUN (7-17) mg/dL Creatinine (0.7-1.2) mg/dL Est GFR ( Amer) Est GFR (Non-Af Amer) Random Glucose (65-105) mg/dL Calcium (8.6-10.4) mg/dl Phosphorus (2.5-4.5) mg/dL Magnesium (1.6-2.3) mg/dL Total Bilirubin (0.2-1.3) mg/dL AST (14-36) U/L ALT (9-52) U/L Alkaline Phosphatase (38-126) U/L NT-Pro-B Natriuret Pep (0-900) pg/mL Total Protein (6.3-8.3) g/dL Albumin (3.5-5.0) g/dL Globulin (2.2-3.9) gm/dL Albumin/Globulin Ratio (1.0-2.1) Random Vancomycin ug/mL IgE 34 (<vz=039) kU/L Laboratory Results - last 24 hr 09/16/18 09/17/18 09/17/18 06:15 04:57 06:37 WBC 21.8 H RBC 3.42 L Hgb 8.7 L Hct 27.1 L MCV 79.3 L MCH 25.4 L MCHC 32.0 L RDW 17.2 H Plt Count 238 MPV 9.6 Neut % (Auto) 94.1 H Lymph % (Auto) 2.7 L Wilcox % (Auto) 3.2 Eos % (Auto) 0.0 Baso % (Auto) 0.0 Neut # (Auto) 20.5 H Lymph # (Auto) 0.6 L Wilcox # (Auto) 0.7 Eos # (Auto) 0.0 Baso # (Auto) 0.0 Neutrophils % (Manual) 94 H Band Neutrophils % 1 Lymphocytes % (Manual) 4 L Monocytes % (Manual) 1 Platelet Estimate Normal Polychromasia Slight Hypochromasia (manual) Slight Anisocytosis (manual) Slight Microcytosis (manual) Slight Target Cells Slight Puncture Site [place] pCO2 61 H pO2 111 H HCO3 29.1 H ABG pH 7.33 L ABG Total CO2 34.1 H ABG O2 Saturation 99.3 H ABG Base Excess 5.3 H ABG Hemoglobin 8.2 L ABG Carboxyhemoglobin 1.7 H POC ABG HHb (Measured) 0.7 ABG Methemoglobin 1.1 Jose Test Na A-a O2 Difference 526.0 Respiratory Index 4.7 Hgb O2 Saturation 96.5 Vent Mode Prvc Mechanical Rate 20 FiO2 100.0 Tidal Volume 350 PEEP 5 Sodium Potassium Chloride Carbon Dioxide Anion Gap BUN Creatinine Est GFR ( Amer) Est GFR (Non-Af Amer) Random Glucose Calcium Phosphorus Magnesium Total Bilirubin AST ALT Alkaline Phosphatase NT-Pro-B Natriuret Pep Total Protein Albumin Globulin Albumin/Globulin Ratio Random Vancomycin IgE 34 09/17/18 09/17/18 09/17/18 06:37 08:33 10:02 WBC RBC Hgb Hct MCV MCH MCHC RDW Plt Count MPV Neut % (Auto) Lymph % (Auto) Wilcox % (Auto) Eos % (Auto) Baso % (Auto) Neut # (Auto) Lymph # (Auto) Wilcox # (Auto) Eos # (Auto) Baso # (Auto) Neutrophils % (Manual) Band Neutrophils % Lymphocytes % (Manual) Monocytes % (Manual) Platelet Estimate Polychromasia Hypochromasia (manual) Anisocytosis (manual) Microcytosis (manual) Target Cells Puncture Site pCO2 pO2 HCO3 ABG pH ABG Total CO2 ABG O2 Saturation ABG Base Excess ABG Hemoglobin ABG Carboxyhemoglobin POC ABG HHb (Measured) ABG Methemoglobin Jose Test A-a O2 Difference Respiratory Index Hgb O2 Saturation Vent Mode Mechanical Rate FiO2 Tidal Volume PEEP Sodium 144 Potassium 4.2 Chloride 106 Carbon Dioxide 32 H Anion Gap 9 L BUN 30 H Creatinine 0.9 Est GFR ( Amer) > 60 Est GFR (Non-Af Amer) > 60 Random Glucose 82 D Calcium 8.9 Phosphorus 3.4 Magnesium 2.2 Total Bilirubin 0.3 AST 82 H ALT 37 Alkaline Phosphatase 92 NT-Pro-B Natriuret Pep 6630 H Total Protein 5.4 L Albumin 2.7 L Globulin 2.7 Albumin/Globulin Ratio 1.0 Random Vancomycin 9.5 IgE Radiology Impressions: Radiology Impressions Chest X-Ray 09/17/18 07:00 Impression: New small right-sided pneumothorax. These critical findings were relayed to Dr. Urban at 8:47 a.m. on 09/17/2018. Assessment/Plan - Assessment and Plan (Free Text) Assessment: 68 year old female with hx bronchiectasis, infiltrate s/p bronchoscopy s/p pneumothorax -Left and right pneumothorax, decrease peep to zero, decrease PIP and PEEP, surery consulted for pneumothorax (Dr. Bashir requested thoracic surgery) -Bronchiectasis/Suspected Fibrotic Lung Disease: r/o ILD, large V/Q mismatch, contine ventilator, continue bronchodilators, sputum culture, awaiting broncho results, may need open lung biopsy to r/o ILD/COOP/BOOP/, continue empirical steroids -h/o heart failure: continue to monitor BP, keep MAP >65 -infiltrate: currently on abx as per ID, culture negative, fungal and NMTB pending -continue tube feeds -BGM q6hrs, ISS lispro -continue dvt/pud ppx cc time 38 minutes Patient could not tolerate CPAP today - Date & Time Date: 09/17/18 Time: 11:00
--- NOTE | 2018-09-17 13:04 | PCM.PROC ---
Procedures Attestation:: I certify that I have explained the specified Operation(s) or Procedure(s), risks, benefits and reasonable alternatives to the Patient and/or other person responsible. The opportunity was given to ask questions and all questions answered - Chest Tube Chest Tube Location: Mid-Axillary Right Size of Tube (cm): 20 (12cm at the skin) Chest Tube Procedure: Chlorhexidine Tube Sutured to Skin: Yes Sterile Dressing Applied: Yes Anesthesia: Lidocaine 1% Volume Anesthetic (mls): 8 Incision Made With: #11 blade Post Procedure: sutured to skin, sterile dressing applied, air occlusive dressing [place] of Air [place]: Yes Tube Drainage: fluid Amount of Initial Drainage: 11 Post Procedure CXR?: Yes Patient Tolerated Procedure: Yes
[2018-09-17] MEDS: Enoxaparin 40 mg Syringe SC SCH (13:26)
--- NOTE | 2018-09-17 13:36 | RAD ---
Chest x-ray single frontal view HISTORY: Right chest tube insertion. COMPARISON: 09/17/2018 Findings: Interval insertion of a right chest tube with residual small right-sided pneumothorax. Left chest tube at the left lung base without gross pneumothorax. Diffuse dense pleural parenchymal opacities in both lungs. Left pleural effusion. Other lines and tubes in stable position. Impression: Interval insertion of a right chest tube with residual small right-sided pneumothorax. Left chest tube at the left lung base without gross pneumothorax. Diffuse dense pleural parenchymal opacities in both lungs. Left pleural effusion. Other lines and tubes in stable position.
--- NOTE | 2018-09-17 14:08 | CP.PCM.PN ---
Subjective - Date & Time of Evaluation Date of Evaluation: 09/17/18 Time of Evaluation: 14:00 - Subjective Subjective: Patient seen and examined Status post right chest tube insertion for new pneumothorax Intubated on ventilatory support requiring high FiO2 Status post bronchoscopy yesterday with no purulent secretions or mucosal edema but copious amount of thin secretions Findings consistent with CHF Patient with severe pulmonary fibrosis causing bilateral pneumothorax status post chest tube insertion Consider reducing tidal volume and peak airway pressure Objective - Vital Signs/Intake and Output Vital Signs (last 24 hours): Temp Pulse Resp BP Pulse Ox 97.5 F L 105 H 26 H 123/76 96 09/17/18 12:00 09/17/18 13:00 09/17/18 13:00 09/17/18 12:01 09/17/18 13:00 Intake and Output: 09/17/18 09/17/18 06:59 18:59 Intake Total 756.4 283.9 Output Total 1565 390 Balance -808.6 -106.1 - Medications Medications: Current Medications Albuterol/Ipratropium (Duoneb 3 Mg/0.5 Mg (3 Ml) Ud) 3 ml INH RQ4 TANA Last Admin: 09/17/18 12:20 Dose: Not Given Carvedilol (Coreg) 3.125 mg PO BID TANA Last Admin: 09/17/18 09:48 Dose: 3.125 mg Enoxaparin Sodium (Lovenox) 40 mg SC Q12 TANA Last Admin: 09/17/18 13:26 Dose: Not Given Piperacillin Sod/Tazobactam (Sod 3.375 gm/ Sodium Chloride) 100 mls @ 200 mls/hr IVPB Q6H TANA; Protocol Last Admin: 09/17/18 13:25 Dose: 200 mls/hr Vancomycin HCl 1 gm/ Sodium (Chloride) 250 mls @ 166.7 mls/hr IVPB Q24H TANA; Protocol Last Admin: 09/16/18 17:28 Dose: 166.7 mls/hr Fentanyl Citrate 2,500 mcg/ (Sodium Chloride) 250 mls @ 8.26 mls/hr IV .Q24H TANA; Protocol Last Titration: 09/17/18 13:00 Dose: 5 mcg/kg/hr, 20.65 mls/hr Propofol (Diprivan) 1,000 mg in 100 mls @ 2.43 mls/hr IV .Q24H PRN; Protocol PRN Reason: TITRATE PER MD ORDER Last Titration: 09/17/18 13:00 Dose: 20 mcg/kg/min, 4.86 mls/hr Lactobacillus Acidophilus (Lactobacillus) 1 cap PO BID [facility] Last Admin: 09/17/18 09:48 Dose: 1 cap Methylprednisolone (Solu-Medrol) 40 mg IVP Q8H TANA Last Admin: 09/17/18 09:48 Dose: 40 mg Montelukast Sodium (Singulair) 10 mg PO HS [facility] Last Admin: 09/16/18 23:00 Dose: 10 mg Pantoprazole Sodium (Protonix Inj) 40 mg IVP Q12H TANA Last Admin: 09/17/18 09:48 Dose: 40 mg - Labs Labs: 09/17/18 06:37 09/17/18 06:37 PT 13.3 SECONDS (9.7-12.2) H 09/15/18 12:23 INR 1.2 09/15/18 12:23 APTT 21 SECONDS (21-34) 09/15/18 12:23
[2018-09-17] MEDS ORDERED: Norepinephrine 8 MG in Dextrose 5% In Water 242 ML IV PRN (17:00)
[2018-09-17 17:31] LABS: BASO % 0.1 % (0.0-2.0); EOS % 0.1 % (0.0-4.0); LYMPH # 0.4 K/uL (1.0-4.3); LYMPH % 2.2 % (20.0-40.0); MEAN CELL VOLUME 77.8 fL (81.0-99.0); MEAN CORPUSCULAR HEMOGLOBIN 25.5 pg (27.0-31.0); MEAN CORPUSCULAR HGB CONC 32.7 g/dL (33.0-37.0); MEAN PLATELET VOLUME 9.6 fL (7.2-11.7); MONO # 0.6 K/uL (0.0-0.8); MONO % 3.4 % (0.0-10.0); NEUT # 17.9 K/uL (1.8-7.0); NEUT % 94.2 % (50.0-75.0); PLATELET COUNT 219 K/uL (130-400); RBC 3.14 Mil/uL (3.80-5.20); RED CELL DISTRIBUTION WIDTH 16.8 % (11.5-14.5)
--- NOTE | 2018-09-17 17:39 | CP.PCM.PN ---
Subjective - Date & Time of Evaluation Date of Evaluation: 09/17/18 Time of Evaluation: 07:20 - Subjective Subjective: Thoracic Surgery Progress note- Dr. Cantrell Patient seen and examined at bedside. Intubated and sedated on Propofol, Fentanyl. Patient is on PRVC 300/20/100/5 saturating 95-98%. She is s/p Left Chest tube insertion. Patient still on Therapeutic Lovenox. Now with right pneumothorax. Will place chest tube. Objective - Vital Signs/Intake and Output Vital Signs (last 24 hours): Temp Pulse Resp BP Pulse Ox 97.3 F L 97 H 20 108/50 L 100 09/17/18 16:00 09/17/18 17:00 09/17/18 17:00 09/17/18 17:00 09/17/18 17:00 Intake and Output: 09/17/18 09/17/18 06:59 18:59 Intake Total 756.4 372.4 Output Total 1565 560 Balance -808.6 -187.6 - Medications Medications: Current Medications Albuterol/Ipratropium (Duoneb 3 Mg/0.5 Mg (3 Ml) Ud) 3 ml INH RQ4 TANA Last Admin: 09/17/18 15:17 Dose: 3 ml Enoxaparin Sodium (Lovenox) 40 mg SC Q12 TANA Last Admin: 09/17/18 13:26 Dose: Not Given Piperacillin Sod/Tazobactam (Sod 3.375 gm/ Sodium Chloride) 100 mls @ 200 ml s/hr IVPB Q6H TANA; Protocol Last Admin: 09/17/18 13:25 Dose: 200 mls/hr Vancomycin HCl 1 gm/ Sodium (Chloride) 250 mls @ 166.7 mls/hr IVPB Q24H TANA; Protocol Last Admin: 09/16/18 17:28 Dose: 166.7 mls/hr Fentanyl Citrate 2,500 mcg/ (Sodium Chloride) 250 mls @ 8.26 mls/hr IV .Q24H TANA; Protocol Last Titration: 09/17/18 13:00 Dose: 5 mcg/kg/hr, 20.65 mls/hr Propofol (Diprivan) 1,000 mg in 100 mls @ 2.43 mls/hr IV .Q24H PRN; Protocol PRN Reason: TITRATE PER MD ORDER Last Titration: 09/17/18 13:00 Dose: 20 mcg/kg/min, 4.86 mls/hr Norepinephrine Bitartrate 8 mg (/ Dextrose) 250 mls @ 7.5 mls/hr IV .Q24H PRN; Protocol PRN Reason: TITRATE PER MD ORDER Lactobacillus Acidophilus (Lactobacillus) 1 cap PO BID [facility] Last Admin: 09/17/18 09:48 Dose: 1 cap Methylprednisolone (Solu-Medrol) 40 mg IVP Q8H [facility] Last Admin: 09/17/18 09:48 Dose: 40 mg Montelukast Sodium (Singulair) 10 mg PO HS [facility] Last Admin: 09/16/18 23:00 Dose: 10 mg Pantoprazole Sodium (Protonix Inj) 40 mg IVP Q12H [facility] Last Admin: 09/17/18 09:48 Dose: 40 mg - Labs Labs: 09/17/18 17:21 09/17/18 06:37 PT 13.3 SECONDS (9.7-12.2) H 09/15/18 12:23 INR 1.2 09/15/18 12:23 APTT 21 SECONDS (21-34) 09/15/18 12:23 - Additional Findings Additional findings: - Constitutional Appears: Chronically Ill - Head Exam Head Exam: ATRAUMATIC - Eye Exam Eye Exam: absent: Scleral icterus - ENT Exam ENT Exam: Mucous Membranes Moist - Respiratory Exam Respiratory Exam: Decreased Breath Sounds (left). absent: Accessory Muscle Use, Respiratory Distress Additional comments: Intubated on PRVC Left Chest tube in place, to suction- small airleak - Cardiovascular Exam Cardiovascular Exam: absent: Bradycardia, Tachycardia - GI/Abdominal Exam GI & Abdominal Exam: Soft. absent: Firm, Guarding, Rigid, Tenderness - Extremities Exam Additional comments: R. Radial A line L.IJ TLC - Neurological Exam Neurological Exam: Awake Additional comments: RAAS -2 - Skin Skin Exam: Intact, Warm Assessment and Plan - Assessment and Plan (Free Text) Assessment: 68F with Pulmonary embolism, bronchiectasis and left sided pneumothorax s/p bedside chest tube thoracostomy POD#2 now with Right sided pneumothorax Plan: - Place 20fr Chest tube on right - Monitor O2 Saturation - Chest tubes to suction - monitor output - continued management per ICU - Discussded with Dr. Tamia Preston PGY2
[2018-09-17 18:25] LABS: BANDS 1 % (0-2); LYMPHOCYTE 2 % (20-40); MONOCYTE 1 % (0-10); NEUTROPHIL 96 % (50-75); PLATELET ESTIMATE NORMAL (NORMAL); TOTAL CELLS COUNTED 100
[2018-09-18] MEDS: Piperacillin/Tazobact 3.375 GM in Sodium Chloride 100 ML IVPB SCH ×5 (01:01→23:33)
[2018-09-18] MEDS: MethylPREDNISolone 40 mg Vial IVP SCH ×3 (01:46→17:37)
[2018-09-18] MEDS: Albuterol-Ipratrop 3 mg / 0.5 (3 ml) UD INH SCH ×5 (03:45→20:08)
[2018-09-18 05:32] LABS: ABG ALLEN TEST POS; ARTERIAL BLOOD GAS HCO3 27.9 mmol/L (21-28); ARTERIAL BLOOD GAS O2 SAT 98.7 % (95-98); ARTERIAL BLOOD GAS PCO2 84 mm/Hg (35-45); ARTERIAL BLOOD GAS PH 7.22 (7.35-7.45); ARTERIAL BLOOD GAS PO2 96 mm/Hg (80-100)
[2018-09-18 06:28] LABS: HEMOGLOBIN 11.2 g/dL (11.0-16.0); MEAN CELL VOLUME 82.1 fL (81.0-99.0); MEAN CORPUSCULAR HEMOGLOBIN 26.2 pg (27.0-31.0); MEAN CORPUSCULAR HGB CONC 31.9 g/dL (33.0-37.0); MEAN PLATELET VOLUME 9.9 fL (7.2-11.7); RBC 4.27 Mil/uL (3.80-5.20); RED CELL DISTRIBUTION WIDTH 17.2 % (11.5-14.5); WHITE BLOOD COUNT 24.4 K/uL (4.8-10.8)
[2018-09-18 06:34] LABS: ALBUMIN 2.9 g/dL (3.5-5.0); ALT/SGPT 37 U/L (9-52); AST/SGOT 64 U/L (14-36); BLOOD UREA NITROGEN 32 mg/dL (7-17); CALCIUM 9.4 mg/dl (8.6-10.4); GFR NON-AFRICAN AMERICAN > 60
[2018-09-18 06:42] LABS: ABG ALLEN TEST POS; ARTERIAL BLOOD GAS HCO3 29.4 mmol/L (21-28); ARTERIAL BLOOD GAS HEMOGLOBIN 10.5 g/dL (11.7-17.4); ARTERIAL BLOOD GAS PCO2 71 mm/Hg (35-45); ARTERIAL BLOOD GAS PH 7.29 (7.35-7.45); ARTERIAL BLOOD GAS PO2 97 mm/Hg (80-100); ARTERIAL BLOOD GAS TCO2 36.3 mmol/L (22-28)
--- NOTE | 2018-09-18 08:33 | RAD ---
Chest x-ray single frontal view HISTORY: Hypoventilation. COMPARISON: 09/17/2018 FINDINGS: Worsening small left-sided pneumothorax as well as a persistent small right-sided pneumothorax. Dense pleural parenchymal opacities throughout both lungs. Bilateral pleural effusions. Lines and tubes in stable position. Cardiomegaly. Degenerative changes in the spine. Impression: Worsening left and persistent right-sided pneumothorax. Additional findings as above.
[2018-09-18] MEDS: Lactobacillus Acidophilus 500 MU Cap PO SCH ×2 (09:22→17:37)
[2018-09-18] MEDS: Propofol 10 mg/ml 1,000 MG/100 ML VIAL IV PRN ×2 (09:40→22:22)
--- NOTE | 2018-09-18 11:45 | CP.PCM.PN ---
Subjective - Date & Time of Evaluation Date of Evaluation: 09/18/18 Time of Evaluation: 11:30 - Subjective Subjective: Hospitalist Progress Note Patient was seen and examined at 11:30 AM 09/18/18 ICU Bed #16 DRIVER SALES on 09/15/18 that lead to patient being intubated and placed on Mechanical Ventilation On Diprivan and Fentanyl On Norepinephrine Drip for low blood pressure CT Chest 09/15/18 indicated PE in LLL and patient currently on Lovenox 40 mg SC Q12H Bilateral Venous Dopplers LE 09/15/18: preliminary report indicates NO DVTs found F/U Sputum Studies: Sputum Fungus Culture 09/15/18 is negative Mycobacterium Culture Preliminary 09/15/18: NO AFB seen F/U Sputum Culture 09/16/18 and 09/18/18 Urine Culture Clean Catch 09/15/18 indicated Fungus. However, repeat Catheterized Urine Culture 09/16/18 did NOT show growth Leukocytosis: elevation secondary to Solumedrol vs Infection? On Vancomycin and Zosyn. Blood Culture 09/10/18 finalized at 5 days as negative. Blood Culture 09/16/18: negative to date F/U pending Sputum Cultures mentioned above. Repeat Catheterized Urine Culture 09/16/18: NO growth Bronchoscopy (bedside)with Dr. Bashir 09/16/18: F/U BAL results from the Right Medial Bronchus S/P Left Mid Axillary Chest Tube Placement 09/16/18: from 7 PM 09/17/18 through 7 AM 09/18/18 roughly 60 ml light clear red fluid produced S/P Right Chest Tube Placement 09/17/18: from 7 PM 09/17/18 through 7 AM 09/18/18 roughly 27 ml light clear red fluid produced Chest X Ray 09/16/18: diffuse pathcy bilateral infiltrates, left sided pneumothorax and small left sided effusion (hydropneumothorax) less well seen on this exam as compared to high resolution CT Scan and presumably has reduced in size. Chest X Ray 09/17/18: It appears that there is a Right Upper Lobe Pneumothorax that has developed since 09/16/18. Right Chest Tube placed 09/17/18 as a result Chest X Ray 09/18/18: shows worsening left pneumothorax and persistent right pneumonthorax Spoke with Nurse Cely concerning worsening Left Pneumothorax and kinking of the left chest tube on Chest X Ray 09/18/18 and she spoke with the Video Photographer environmental remediation consultant and they are aware but as there is still fluid being extracted by the chest tube, no repositioning of the chest tube at this time. Considering patient's Assessment and Plans below, prognosis at this time is poor. Palliative Care Nurse Philomena has been in contact with Son Edd and he has been made aware. Patient is currently FULL CODE. General: Unresponsive secondary to intubation on mechanical ventilation HEENT: NCA, Pupils are reactive to light and are equal/round, NO lymphadenopathy, NO thyromegaly Cardio: NS1 and NS2, NO M/R/G Resp: Course breath sounds diffusely GI: BSx4, Soft, ND, NO HSM Ext: NO edema noted, Capillary Refill is 2 seconds, Pulses are strong and equal Neuro: Exam not possible at this time Skin: 1 cm circular Stage II Ulcer Right Upper Inner Buttock without signs of cellulitis (being treated with repositioning and AloVesta) The following are Assessment and Plan that include summary of care up to this point: Assessment/Plan 1. Acute Respiratory Failure Cystic Bronchiectasis, chronic Healthcare associated pneumonis Fibrosis Pneumothorax Assessment/Plan * Pulmonology, Dr. Bashir, consulted help appreciated * CT chest (08/22/18): areas of dense consolidation/atelectasis in the left lung base; progressed 03/01/16. Extensive cystic changes seen throughout the left lung and less so the right upper lobe possibly representing cystic bronchiectasis. Left sided effusion possibly with some loculated components. mucous plugging changes or compressive effects on the proximal branches of the left upper and lower lobe of bronchi. mild fatty hepatic infiltration. gastric wall thickening in part of incomplete distension. markedly distended urinary bladder, rule out urinary retention * ESRL 113, CRP: 193.80, pending BAUTISTA * Patient had refused PA chest x-ray yesterday. Patient refused CT chest overnight. Patient had ABG completed this morning with elevated CO2. Rapid response called September 15, 2018 for acute respiratory distress, tachycardia as well as patient did not look well. Patient noted accessory muscle use. We have gotten a chest x-ray for the patient patient is aware that given the respiratory distress that she would likely need to be intubated I have discussed with patient's son at bedside Edd who is aware that patient will likely need to be intubated since we are at maximum support prior to intubation. Patient transferred to the intensive care unit intubated and will repeat workup plan is for possible bronchoscopy tomorrow with Dr. Bashir on September 16, 2018. * Recent admission labs (08/22-09/03) * ANCA screen is negative * Proteinase 3 <1.0 * myeloperoxidase <1.0 * b DGlucan negative * indeterminate quantiferon * Aspergillus flavus negative * Aspergillus fumigatus negative * Aspergillus niger negative * HIV negative * influenza negative * Hepatitis negative * Rheumatoid factor IgM elevated at 80 * Blood culture (08/22/18): no growth after 5 days X2 * Myobacterial culture (08/23/18): negative for AFB. prelim * Myobacterial culture (08/25/18): negative for AFB. prelim * Myobacterial culture (08/28/18): negative for AFB. prelim * Mycobacterium complex PCR negative * Hisplasmosis AB negative, MARY level normal * Continue chest physiotherapy, Duonebs q4, singulair 10 mg PO QHS, Breo ellipta once daily, Mucinex 600 mg PO BID, O2 High flow oxygen * Solumedrol 40mg IV Q8H (active since 09/12/18) * CT surgery consult pending family decision regarding open lung biopsy/FNA/bronchoscopy * ID Dr Land consulted- agrees w/ empiric abx * Patient is high risk given lung and cardiac status for further procedures Hyponatremia (resolved) * Nephro Consulted: Dr. Lindsay - king appreciated * Improved with PO fluid restriction, should continue the same with goal <1.5L per day; awaiting repeat urine osm; * normalized Abdominal pain, resolved * Likely due to potassium chloride medications pt was discharged with * Abdominal CT with IV contrast prelim reading shows ileus vs developing enteritis * Leukocytosis likely due to steroid treatment? * Protonix 40 mg IV Q12H * Given Cipro 400 mg IVPB x 1, Flagyl 500 mg IVPB x 1, Pepcid 20 mg PO, Maalox 30 mL PO in the ED Heart Failure with Reduced Ejection Fraction, chronic * Echocardiogram (08/27/18) left ventricular systolic function is severely impaired. ejection fraction is 25-30%. atrial septum aneurysmal. possible asd? no aortic regurgitation is present. mitral regurgitation is mild to moderate. mild tricuspid regurgitation. mild pulmonary hypertension. * Cardiac cath showed nonischemic cardiomyopathy. Dr. Pedraza, cardiology, evaluated the pt on last admission and recommended medical HFrEF management rather than lifevest/aicd placement. * Carvedilol 3.125 mg PO BID on hold considering need for Norepinephrine for low blood pressure * Losartan 25 mg PO on hold, Aldactone 12.5 mg PO once daily on hold (given borderline potassium level) * Lasix 20mg po daily on hold considering need for Norepinephrine for low blood pressure Leukocytosis * Influenza negative * Zosyn 3.375g IVPB Q6H (active since 09/11/18) * Vancomycin 1 gram IVPB Q24h (active since 09/11/18) * Solumedrol 40mg IVPB Q8H Cachexia * 30lb weight loss in 2 months * Respite Worker referral * Ensure Compact TID (660 kcals, 27 gm protein) PPx * DVT ppx: Heparin 5000u SC q12 (refusing), SCDs * GI: Protonix 40 mg IV Q12H and Lactobacillus 2x/day * Diet: PulmCare at 25 ml/hr via oral gastric tube * Skin: AloVesta for 1 cm Circular Stage II Right Buttock Ulcer and repositioning of patient Q2H * Aspiration precautions due to increased mucus production * Full code * Palliative care on board * Intubated 09/15/18 Objective - Vital Signs/Intake and Output Vital Signs (last 24 hours): Temp Pulse Resp BP Pulse Ox 99.3 F 125 H 25 H 104/63 95 09/18/18 09:00 09/18/18 10:30 09/18/18 10:30 09/18/18 10:09 09/18/18 10:30 Intake and Output: 09/18/18 09/18/18 06:59 18:59 Intake Total 1368.9 282.4 Output Total 792 225 Balance 576.9 57.4 - Medications Medications: Current Medications Albuterol/Ipratropium (Duoneb 3 Mg/0.5 Mg (3 Ml) Ud) 3 ml INH RQ4 TANA Last Admin: 09/18/18 08:49 Dose: 3 ml Piperacillin Sod/Tazobactam (Sod 3.375 gm/ Sodium Chloride) 100 mls @ 200 mls/hr IVPB Q6H TANA; Protocol Last Admin: 09/18/18 06:31 Dose: 200 mls/hr Vancomycin HCl 1 gm/ Sodium (Chloride) 250 mls @ 166.7 mls/hr IVPB Q24H TANA; Protocol Last Admin: 09/17/18 18:53 Dose: 166.7 mls/hr Fentanyl Citrate 2,500 mcg/ (Sodium Chloride) 250 mls @ 8.26 mls/hr IV .Q24H TANA; Protocol Last Admin: 09/18/18 09:37 Dose: 4 mcg/kg/hr, 16.52 mls/hr Propofol (Diprivan) 1,000 mg in 100 mls @ 2.43 mls/hr IV .Q24H PRN; Protocol PRN Reason: TITRATE PER MD ORDER Last Admin: 09/18/18 09:40 Dose: 40 mcg/kg/min, 9.72 mls/hr Norepinephrine Bitartrate 8 mg (/ Dextrose) 250 mls @ 7.5 mls/hr IV .Q24H PRN; Protocol PRN Reason: TITRATE PER MD ORDER Lactobacillus Acidophilus (Lactobacillus) 1 cap PO BID TANA Last Admin: 09/18/18 09:22 Dose: 1 cap Methylprednisolone (Solu-Medrol) 40 mg IVP Q8H TANA Last Admin: 09/18/18 09:22 Dose: 40 mg Montelukast Sodium (Singulair) 10 mg PO HS TANA Last Admin: 09/17/18 21:03 Dose: 10 mg Pantoprazole Sodium (Protonix Inj) 40 mg IVP Q12H TANA Last Admin: 09/18/18 09:22 Dose: 40 mg - Labs Labs: 09/18/18 06:09 09/18/18 06:09 PT 13.3 SECONDS (9.7-12.2) H 09/15/18 12:23 INR 1.2 09/15/18 12:23 APTT 21 SECONDS (21-34) 09/15/18 12:23
--- NOTE | 2018-09-18 12:03 | CP.PCM.PN ---
Subjective - Date & Time of Evaluation Date of Evaluation: 09/18/18 Time of Evaluation: 07:00 - Subjective Subjective: Surgery: Dr. Amin Patient remains intubated and sedated. No acute events overnight. CT remained on suction with L 100cc SA output and R with 75 SA output overnight. Objective - Vital Signs/Intake and Output Vital Signs (last 24 hours): Temp Pulse Resp BP Pulse Ox 99.3 F 125 H 25 H 104/63 95 09/18/18 09:00 09/18/18 10:30 09/18/18 10:30 09/18/18 10:09 09/18/18 10:30 Intake and Output: 09/18/18 09/18/18 06:59 18:59 Intake Total 1368.9 282.4 Output Total 792 225 Balance 576.9 57.4 - Medications Medications: Current Medications Albuterol/Ipratropium (Duoneb 3 Mg/0.5 Mg (3 Ml) Ud) 3 ml INH RQ4 TNAA Last Admin: 09/18/18 11:46 Dose: 3 ml Piperacillin Sod/Tazobactam (Sod 3.375 gm/ Sodium Chloride) 100 mls @ 200 mls/hr IVPB Q6H TANA; Protocol Last Admin: 09/18/18 06:31 Dose: 200 mls/hr Vancomycin HCl 1 gm/ Sodium (Chloride) 250 mls @ 166.7 mls/hr IVPB Q24H TANA; Protocol Last Admin: 09/17/18 18:53 Dose: 166.7 mls/hr Fentanyl Citrate 2,500 mcg/ (Sodium Chloride) 250 mls @ 8.26 mls/hr IV .Q24H TANA; Protocol Last Admin: 09/18/18 09:37 Dose: 4 mcg/kg/hr, 16.52 mls/hr Propofol (Diprivan) 1,000 mg in 100 mls @ 2.43 mls/hr IV .Q24H PRN; Protocol PRN Reason: TITRATE PER MD ORDER Last Admin: 09/18/18 09:40 Dose: 40 mcg/kg/min, 9.72 mls/hr Norepinephrine Bitartrate 8 mg (/ Dextrose) 250 mls @ 7.5 mls/hr IV .Q24H PRN; Protocol PRN Reason: TITRATE PER MD ORDER Lactobacillus Acidophilus (Lactobacillus) 1 cap PO BID [facility] Last Admin: 09/18/18 09:22 Dose: 1 cap Methylprednisolone (Solu-Medrol) 40 mg IVP Q8H [facility] Last Admin: 09/18/18 09:22 Dose: 40 mg Montelukast Sodium (Singulair) 10 mg PO HS [facility] Last Admin: 09/17/18 21:03 Dose: 10 mg Pantoprazole Sodium (Protonix Inj) 40 mg IVP Q12H [facility] Last Admin: 09/18/18 09:22 Dose: 40 mg - Labs Labs: 09/18/18 06:09 09/18/18 06:09 PT 13.3 SECONDS (9.7-12.2) H 09/15/18 12:23 INR 1.2 09/15/18 12:23 APTT 21 SECONDS (21-34) 09/15/18 12:23 - Constitutional Appears: No Acute Distress, Chronically Ill - Head Exam Head Exam: ATRAUMATIC, NORMOCEPHALIC - ENT Exam ENT Exam: Mucous Membranes Dry - Respiratory Exam Additional comments: intubated, mechanical vent R CT: no leak, SA fluid output L CT: small air leak, 100cc SA fluid output - Cardiovascular Exam Cardiovascular Exam: REGULAR RHYTHM Assessment and Plan - Assessment and Plan (Free Text) Assessment: 68F with Pulmonary embolism, bronchiectasis, pulmonary failure requiring mechanical ventilation with B/L pneumothoracies s/p B/L CT placement Plan: Cont both chest tubes on suction- R pnx resolved, L small pnx persistent daily CXR monitor output vent management per ICU will cont to follow further recs per attending AKWhite PGY4
--- NOTE | 2018-09-18 14:41 | CP.PCM.PN ---
Subjective - Date & Time of Evaluation Date of Evaluation: 09/18/18 Time of Evaluation: 07:00 - Subjective Subjective: intubated in ICU no new positive cultures IV rx in progress CT in place Objective - Vital Signs/Intake and Output Vital Signs (last 24 hours): Temp Pulse Resp BP Pulse Ox 98.8 F 124 H 14 130/79 94 L 09/18/18 13:00 09/18/18 13:09 09/18/18 13:09 09/18/18 13:09 09/18/18 13:09 Intake and Output: 09/18/18 09/18/18 06:59 18:59 Intake Total 1368.9 463.8 Output Total 792 225 Balance 576.9 238.8 - Medications Medications: Current Medications Albuterol/Ipratropium (Duoneb 3 Mg/0.5 Mg (3 Ml) Ud) 3 ml INH RQ4 TANA Last Admin: 09/18/18 11:46 Dose: 3 ml Piperacillin Sod/Tazobactam (Sod 3.375 gm/ Sodium Chloride) 100 mls @ 200 mls/hr IVPB Q6H TANA; Protocol Last Admin: 09/18/18 12:50 Dose: 200 mls/hr Vancomycin HCl 1 gm/ Sodium (Chloride) 250 mls @ 166.7 mls/hr IVPB Q24H TANA; Protocol Last Admin: 09/17/18 18:53 Dose: 166.7 mls/hr Fentanyl Citrate 2,500 mcg/ (Sodium Chloride) 250 mls @ 8.26 mls/hr IV .Q24H TANA; Protocol Last Admin: 09/18/18 09:37 Dose: 4 mcg/kg/hr, 16.52 mls/hr Propofol (Diprivan) 1,000 mg in 100 mls @ 2.43 mls/hr IV .Q24H PRN; Protocol PRN Reason: TITRATE PER MD ORDER Last Titration: 09/18/18 12:35 Dose: 30 mcg/kg/min, 7.29 mls/hr Norepinephrine Bitartrate 8 mg (/ Dextrose) 250 mls @ 7.5 mls/hr IV .Q24H PRN; Protocol PRN Reason: TITRATE PER MD ORDER Lactobacillus Acidophilus (Lactobacillus) 1 cap PO BID TANA Last Admin: 09/18/18 09:22 Dose: 1 cap Methylprednisolone (Solu-Medrol) 40 mg IVP Q8H [facility] Last Admin: 09/18/18 09:22 Dose: 40 mg Montelukast Sodium (Singulair) 10 mg PO HS [facility] Last Admin: 09/17/18 21:03 Dose: 10 mg Pantoprazole Sodium (Protonix Inj) 40 mg IVP Q12H [facility] Last Admin: 09/18/18 09:22 Dose: 40 mg - Labs Labs: 09/18/18 06:09 09/18/18 06:09 PT 13.3 SECONDS (9.7-12.2) H 09/15/18 12:23 INR 1.2 09/15/18 12:23 APTT 21 SECONDS (21-34) 09/15/18 12:23 - Constitutional Appears: Confused, Cachectic, Chronically Ill - Head Exam Head Exam: NORMOCEPHALIC - Eye Exam Eye Exam: absent: Scleral icterus - ENT Exam ENT Exam: Mucous Membranes Dry - Neck Exam Neck Exam: absent: Lymphadenopathy - Respiratory Exam Respiratory Exam: Decreased Breath Sounds, Prolonged Expiratory Phase, Rhonchi - Cardiovascular Exam Cardiovascular Exam: Tachycardia, REGULAR RHYTHM, +S1, +S2 - GI/Abdominal Exam GI & Abdominal Exam: Distended, Soft - Rectal Exam Rectal Exam: Deferred - Exam Exam: NORMAL INSPECTION - Extremities Exam Extremities Exam: absent: Pedal Edema - Back Exam Back Exam: absent: CVA tenderness (L), CVA tenderness (R) - Neurological Exam Neurological Exam: Altered - Psychiatric Exam Psychiatric exam: Depressed - Skin Skin Exam: Dry Assessment and Plan (1) Bronchiectasis with (acute) exacerbation Status: Acute (2) Congestive heart failure Status: Acute - Assessment and Plan (Free Text) Assessment: no new positive cultures cont IV antibiotics, steroids, vent support, chest tube poor prognosis
--- NOTE | 2018-09-18 16:01 | RAD ---
Date of service: 09/18/2018 PROCEDURE: CHEST RADIOGRAPH, 1 VIEW HISTORY: repeat cxr COMPARISON: Chest radiograph performed approximately 7 hours prior FINDINGS: LUNGS: Stable appearance of dense pleural parenchymal opacities throughout both lungs PLEURA: Small bilateral pneumothoraces, without significant change. CARDIOVASCULAR: Aortic atherosclerotic calcifications. Cardiomediastinal silhouette stably enlarged. OSSEOUS STRUCTURES: Unchanged. VISUALIZED UPPER ABDOMEN: Normal. OTHER FINDINGS: Endotracheal and enteric tubes, unchanged. Left-sided large-bore chest tube with tip at the left base, unchanged. Right-sided large-bore chest tube with tip in the apex, unchanged. Left internal jugular access central venous catheter, unchanged. IMPRESSION: Stable tubes and lines. Stable appearance of dense bilateral pleural parenchymal opacities and small bilateral pneumothoraces.
--- NOTE | 2018-09-18 21:03 | CP.PCM.PN ---
Subjective - Date & Time of Evaluation Date of Evaluation: 09/18/18 Time of Evaluation: 20:53 - Subjective Subjective: No events, patient sedated, on 100% fio2, no peep due to b/l pneumothorax, improved on the right side, but still present on the left side. Discussed with son, continuing the supportive care. Spoke to zahida Zhao at the bedside. Objective - Vital Signs/Intake and Output Vital Signs (last 24 hours): Temp Pulse Resp BP Pulse Ox 99.0 F 112 H 14 131/80 93 L 09/18/18 17:00 09/18/18 19:09 09/18/18 19:09 09/18/18 19:09 09/18/18 19:09 Intake and Output: 09/18/18 09/19/18 18:59 06:59 Intake Total 860.3 59.5 Output Total 715 30 Balance 145.3 29.5 - Medications Medications: Current Medications Albuterol/Ipratropium (Duoneb 3 Mg/0.5 Mg (3 Ml) Ud) 3 ml INH RQ4 TANA Last Admin: 09/18/18 20:08 Dose: 3 ml Piperacillin Sod/Tazobactam (Sod 3.375 gm/ Sodium Chloride) 100 mls @ 200 mls/hr IVPB Q6H TANA; Protocol Last Admin: 09/18/18 17:37 Dose: 200 mls/hr Vancomycin HCl 1 gm/ Sodium (Chloride) 250 mls @ 166.7 mls/hr IVPB Q24H TANA; Protocol Last Admin: 09/18/18 17:37 Dose: 166.7 mls/hr Fentanyl Citrate 2,500 mcg/ (Sodium Chloride) 250 mls @ 8.26 mls/hr IV .Q24H TANA; Protocol Last Admin: 09/18/18 09:37 Dose: 4 mcg/kg/hr, 16.52 mls/hr Propofol (Diprivan) 1,000 mg in 100 mls @ 2.43 mls/hr IV .Q24H PRN; Protocol PRN Reason: TITRATE PER MD ORDER Last Titration: 09/18/18 14:00 Dose: 33 mcg/kg/min, 8.019 mls/hr Norepinephrine Bitartrate 8 mg (/ Dextrose) 250 mls @ 7.5 mls/hr IV .Q24H PRN; Protocol PRN Reason: TITRATE PER MD ORDER Lactobacillus Acidophilus (Lactobacillus) 1 cap PO BID [facility] Last Admin: 09/18/18 17:37 Dose: 1 cap Methylprednisolone (Solu-Medrol) 40 mg IVP Q8H [facility] Last Admin: 09/18/18 17:37 Dose: 40 mg Montelukast Sodium (Singulair) 10 mg PO HS [facility] Last Admin: 09/17/18 21:03 Dose: 10 mg Pantoprazole Sodium (Protonix Inj) 40 mg IVP Q12H [facility] Last Admin: 09/18/18 20:43 Dose: 40 mg - Labs Labs: 09/18/18 06:09 09/18/18 06:09 PT 13.3 SECONDS (9.7-12.2) H 09/15/18 12:23 INR 1.2 09/15/18 12:23 APTT 21 SECONDS (21-34) 09/15/18 12:23 - Additional Findings Additional findings: * HEENT Sedated * Neck supple * Chest b/l rales, left less sound as compared to right, noticed suction of the air in the CT appratus on both sides but related with inspiration on the left side suggesting continuous leak. * CVS regular tachycardia * PA soft * Ext no edema * HPLC CHEMIST sedated. Assessment and Plan - Assessment and Plan (Free Text) Assessment: 68 year old female with hx bronchiectasis, infiltrate s/p bronchoscopy s/p pneumothorax -Left and right pneumothorax, decrease peep to zero, decrease PIP and PEEP, surgery f/u for pneumothroax -Bronchiectasis/Suspected Fibrotic Lung Disease: r/o ILD, large V/Q mismatch, contine ventilator, continue bronchodilators, sputum culture, awaiting broncho results, may need open lung biopsy to r/o ILD/COOP/BOOP/, continue empirical steroids -h/o heart failure: continue to monitor BP, keep MAP >65 -infiltrate: currently on abx as per ID, culture negative, fungal and NMTB pending -continue tube feeds -BGM q6hrs, ISS lispro -continue dvt/pud ppx - see orders for detail.
[2018-09-19] MEDS: Albuterol-Ipratrop 3 mg / 0.5 (3 ml) UD INH SCH ×6 (00:26→20:20)
[2018-09-19] MEDS: MethylPREDNISolone 40 mg Vial IVP SCH ×3 (01:05→18:28)
[2018-09-19 05:40] LABS: ARTERIAL BLOOD GAS HCO3 33.1 mmol/L (21-28); ARTERIAL BLOOD GAS HEMOGLOBIN 10.2 g/dL (11.7-17.4); ARTERIAL BLOOD GAS O2 SAT 83.7 % (95-98); ARTERIAL BLOOD GAS PCO2 66 mm/Hg (35-45); ARTERIAL BLOOD GAS PH 7.37 (7.35-7.45); ARTERIAL BLOOD GAS PO2 45 mm/Hg (80-100); ARTERIAL BLOOD GAS TCO2 40.2 mmol/L (22-28)
[2018-09-19] MEDS: Piperacillin/Tazobact 3.375 GM in Sodium Chloride 100 ML IVPB SCH ×3 (05:55→19:23)
[2018-09-19 06:19] LABS: HEMOGLOBIN 10.4 g/dL (11.0-16.0); MEAN CELL VOLUME 82.7 fL (81.0-99.0); MEAN CORPUSCULAR HEMOGLOBIN 27.2 pg (27.0-31.0); MEAN CORPUSCULAR HGB CONC 32.8 g/dL (33.0-37.0); MEAN PLATELET VOLUME 10.3 fL (7.2-11.7); RBC 3.84 Mil/uL (3.80-5.20); RED CELL DISTRIBUTION WIDTH 17.7 % (11.5-14.5)
[2018-09-19 06:40] LABS: ALBUMIN 2.7 g/dL (3.5-5.0); ALT/SGPT 28 U/L (9-52); AST/SGOT 44 U/L (14-36); BLOOD UREA NITROGEN 31 mg/dL (7-17); CALCIUM 9.2 mg/dl (8.6-10.4); GFR NON-AFRICAN AMERICAN > 60
[2018-09-19] MEDS: Propofol 10 mg/ml 1,000 MG/100 ML VIAL IV PRN ×2 (07:50→16:19)
--- NOTE | 2018-09-19 08:03 | CP.PCM.PN ---
Subjective - Date & Time of Evaluation Date of Evaluation: 09/19/18 Time of Evaluation: 08:01 - Subjective Subjective: Thoracic Surgery Progress Note- Dr. Cantrell Patient seen and examined at bedside. Intubated and sedated and paralyzed. On PRVC 350/20/100/0. Bilateral Chest Tubes to suction. Left + Air leak w/ serosang drainage. Right No air leak detected. Will continue to remain on suction for now. Objective - Vital Signs/Intake and Output Vital Signs (last 24 hours): Temp Pulse Resp BP Pulse Ox 99.9 F H 143 H 14 122/79 85 L 09/19/18 04:30 09/19/18 07:00 09/19/18 07:00 09/19/18 07:09 09/19/18 07:00 Intake and Output: 09/19/18 09/19/18 06:59 18:59 Intake Total 1207.0 133.7 Output Total 785 Balance 422.0 133.7 - Medications Medications: Current Medications Albuterol/Ipratropium (Duoneb 3 Mg/0.5 Mg (3 Ml) Ud) 3 ml INH RQ4 TANA Last Admin: 09/19/18 03:02 Dose: Not Given Piperacillin Sod/Tazobactam (Sod 3.375 gm/ Sodium Chloride) 100 mls @ 200 mls/hr IVPB Q6H [facility]; Protocol Last Admin: 09/19/18 05:55 Dose: 200 mls/hr Vancomycin HCl 1 gm/ Sodium (Chloride) 250 mls @ 166.7 mls/hr IVPB Q24H [facility]NA; Protocol Last Admin: 09/18/18 17:37 Dose: 166.7 mls/hr Fentanyl Citrate 2,500 mcg/ (Sodium Chloride) 250 mls @ 8.26 mls/hr IV .Q24H TANA; Protocol Last Titration: 09/19/18 03:00 Dose: 4.84 mcg/kg/hr, 20 mls/hr Propofol (Diprivan) 1,000 mg in 100 mls @ 2.43 mls/hr IV .Q24H PRN; Protocol PRN Reason: TITRATE PER MD ORDER Last Admin: 09/19/18 07:50 Dose: 40 mcg/kg/min, 9.72 mls/hr Norepinephrine Bitartrate 8 mg (/ Dextrose) 250 mls @ 7.5 mls/hr IV .Q24H PRN; Protocol PRN Reason: TITRATE PER MD ORDER Lactobacillus Acidophilus (Lactobacillus) 1 cap PO BID [facility] Last Admin: 09/18/18 17:37 Dose: 1 cap Methylprednisolone (Solu-Medrol) 40 mg IVP Q8H [facility] Last Admin: 09/19/18 01:05 Dose: 40 mg Montelukast Sodium (Singulair) 10 mg PO HS [facility] Last Admin: 09/18/18 22:21 Dose: 10 mg Pantoprazole Sodium (Protonix Inj) 40 mg IVP Q12H [facility] Last Admin: 09/18/18 20:43 Dose: 40 mg - Labs Labs: 09/19/18 06:12 09/19/18 06:12 PT 13.3 SECONDS (9.7-12.2) H 09/15/18 12:23 INR 1.2 09/15/18 12:23 APTT 21 SECONDS (21-34) 09/15/18 12:23 - Constitutional Appears: No Acute Distress, Chronically Ill - Eye Exam Eye Exam: absent: PERRL (sedated and paralyzed), Scleral icterus - ENT Exam ENT Exam: Mucous Membranes Moist - Respiratory Exam Respiratory Exam: absent: Accessory Muscle Use, Respiratory Distress Additional comments: Intubated and on vent; PRVC Chest tube Bilateral. Left + Air leak. R - air leak - Cardiovascular Exam Cardiovascular Exam: Tachycardia, REGULAR RHYTHM. absent: Bradycardia - GI/Abdominal Exam GI & Abdominal Exam: absent: Distended, Firm, Rigid, Soft - Exam Additional comments: Vanessa in place making adequate urine - Extremities Exam Extremities Exam: absent: Calf Tenderness - Neurological Exam Additional comments: Sedated and paralyzed RASS -3 - Skin Skin Exam: Warm Assessment and Plan - Assessment and Plan (Free Text) Assessment: 68F w/ Acute PE on therapeutic Lovenox, bronchiectasis, pulmonary failure requiring mechanical ventilation with B/L pneumothoracies s/p B/L CT placement, L POD 4, Right POD # Plan: Cont both chest tubes on suction- R pnx resolved, L small pnx persistent daily CXR monitor output vent management per ICU will cont to follow Plans for goals of care today with family d/w Surgical Attending PGY2
--- NOTE | 2018-09-19 08:51 | RAD ---
Chest x-ray single frontal view HISTORY: Intubated. COMPARISON: 09/18/2018 FINDINGS: Lines and tubes in stable position. Persistent small right-sided and tiny left-sided pneumothorax. Dense confluent consolidative pleural-parenchymal opacities throughout both lungs superimposed on underlying honeycombing and fibrotic changes. Cardiomegaly. Degenerative changes in the spine. Impression: Overall no significant interval change since the prior study.
[2018-09-19] MEDS: Cisatracurium Besylate 100 MG in Dextrose 5% In Water 240 ML IV PRN (09:50)
[2018-09-19] MEDS: Lactobacillus Acidophilus 500 MU Cap PO SCH ×2 (10:44→18:29)
--- NOTE | 2018-09-19 10:44 | CP.PCM.PN ---
<Cruz Epps - Last Filed: 09/19/18 10:38> Subjective - Date & Time of Evaluation Date of Evaluation: 09/19/18 Time of Evaluation: 10:38 - Subjective Subjective: Pulm Progress Note for Dr. Bashir's service S/E at bedside Remains intubated/sedated Oxygenating poorly on 100% high flow Family discussion to discuss goals of care as prognosis is very poor Limited ROS Objective - Vital Signs/Intake and Output Vital Signs (last 24 hours): Temp Pulse Resp BP Pulse Ox 99.9 F H 140 H 30 H 106/69 75 L 09/19/18 04:30 09/19/18 10:09 09/19/18 10:09 09/19/18 10:09 09/19/18 10:09 Intake and Output: 09/19/18 09/19/18 06:59 18:59 Intake Total 1207.0 294.3 Output Total 785 18 Balance 422.0 276.3 - Medications Medications: Current Medications Albuterol/Ipratropium (Duoneb 3 Mg/0.5 Mg (3 Ml) Ud) 3 ml INH RQ4 TANA Last Admin: 09/19/18 08:31 Dose: Not Given Piperacillin Sod/Tazobactam (Sod 3.375 gm/ Sodium Chloride) 100 mls @ 200 mls/hr IVPB Q6H TANA; Protocol Last Admin: 09/19/18 05:55 Dose: 200 mls/hr Vancomycin HCl 1 gm/ Sodium (Chloride) 250 mls @ 166.7 mls/hr IVPB Q24H TANA; Protocol Last Admin: 09/18/18 17:37 Dose: 166.7 mls/hr Fentanyl Citrate 2,500 mcg/ (Sodium Chloride) 250 mls @ 8.26 mls/hr IV .Q24H TANA; Protocol Last Titration: 09/19/18 03:00 Dose: 4.84 mcg/kg/hr, 20 mls/hr Propofol (Diprivan) 1,000 mg in 100 mls @ 2.43 mls/hr IV .Q24H PRN; Protocol PRN Reason: TITRATE PER MD ORDER Last Admin: 09/19/18 07:50 Dose: 40 mcg/kg/min, 9.72 mls/hr Norepinephrine Bitartrate 8 mg (/ Dextrose) 250 mls @ 7.5 mls/hr IV .Q24H PRN; Protocol PRN Reason: TITRATE PER MD ORDER Cisatracurium Besylate 100 mg/ (Dextrose) 250 mls @ 17.96 mls/hr IV .[id number] PRN; Protocol PRN Reason: Agitation Last Titration: 09/19/18 10:10 Dose: 3.5 mcg/kg/min, 20.96 mls/hr Lactobacillus Acidophilus (Lactobacillus) 1 cap PO BID [facility] Last Admin: 09/18/18 17:37 Dose: 1 cap Methylprednisolone (Solu-Medrol) 40 mg IVP Q8H TANA Last Admin: 09/19/18 08:49 Dose: 40 mg Montelukast Sodium (Singulair) 10 mg PO HS [facility] Last Admin: 09/18/18 22:21 Dose: 10 mg Pantoprazole Sodium (Protonix Inj) 40 mg IVP Q12H [facility] Last Admin: 09/19/18 08:49 Dose: 40 mg - Labs Labs: 09/19/18 06:12 09/19/18 06:12 PT 13.3 SECONDS (9.7-12.2) H 09/15/18 12:23 INR 1.2 09/15/18 12:23 APTT 21 SECONDS (21-34) 09/15/18 12:23 - Constitutional Appears: No Acute Distress, Cachectic - Head Exam Head Exam: NORMAL INSPECTION - ENT Exam ENT Exam: Mucous Membranes Dry - Respiratory Exam Respiratory Exam: Decreased Breath Sounds, Respiratory Distress Additional comments: intubated wtih ET tube in place - Cardiovascular Exam Cardiovascular Exam: Tachycardia, +S1, +S2 - GI/Abdominal Exam GI & Abdominal Exam: Soft, Normal Bowel Sounds. absent: Tenderness - Neurological Exam Neurological Exam: absent: Awake, Oriented x3 - Skin Skin Exam: Dry, Intact, Normal Color Assessment and Plan - Assessment and Plan (Free Text) Assessment: 68 year old female with a PMH of HFrEF, bronchiectasis. Abdominal CT showed a small pneumothorax. Pulmonary team was consulted for bronchiectasis and pneumothorax. Intubated on -11 after patient was noted to having increased respiratory distress Plan: Hypoxic respiratory failure ABG consistent with hypoxic respiratory failure Intubated/Sedated; further management as per ICU team Fentanyl drip Cystic Bronchiectasis Continue current antibiotic therapy of Vanc/Zosyn Continue duoneb, Breo, singular, Mucinex, and IV steriods Nimbex Continue high flow oxygen. Continue Lasix 20 mg daily s/p bronchoscopy on 09/16- pending biospy results Etiology remains unknown (IPF concern vs immunodeficiency) Acute pneumothorax CXR 09/12: pneumothorax improved Repeat imaging on 09-15 shows new pneumothorax on left side, CT chest pending, CT surgery consulted for worsening pnuemothorax Repeat CXR on 09-19: persistent right-sided and left-sided small pneumothorax Intubated/Sedated see above Chest tube placed on left side CT findings on 09-15 showed moderate pneumo with pulmonary emoblism Hypotension on levophed drip Pulmonary Emoblism Lovenox 40mg sc q 12 Disposition: discussion with family for goals of care; patient has very poor prognosis; on ventilatory support with max oxygen yet saturating at 75% PGY-1 Cruz Epps Case d/w Dr. Bashir <Spenser Bashir S - Last Filed: 09/19/18 18:02> Objective - Vital Signs/Intake and Output Vital Signs (last 24 hours): Temp Pulse Resp BP Pulse Ox 99.3 F 130 H 30 H 99/64 L 88 L 09/19/18 12:00 09/19/18 17:09 09/19/18 16:00 09/19/18 17:09 09/19/18 17:09 Intake and Output: 09/19/18 09/19/18 06:59 18:59 Intake Total 1207.0 1463.5 Output Total 785 202 Balance 422.0 1261.5 - Medications Medications: Current Medications Albuterol/Ipratropium (Duoneb 3 Mg/0.5 Mg (3 Ml) Ud) 3 ml INH RQ4 TANA Last Admin: 09/19/18 11:22 Dose: Not Given Heparin Sodium (Porcine) (Heparin) 5,000 units SC Q8 TANA Last Admin: 09/19/18 14:27 Dose: 5,000 units Piperacillin Sod/Tazobactam (Sod 3.375 gm/ Sodium Chloride) 100 mls @ 200 mls/hr IVPB Q6H TANA; Protocol Last Admin: 09/19/18 13:20 Dose: 200 mls/hr Vancomycin HCl 1 gm/ Sodium (Chloride) 250 mls @ 166.7 mls/hr IVPB Q24H TANA; Protocol Last Admin: 09/18/18 17:37 Dose: 166.7 mls/hr Fentanyl Citrate 2,500 mcg/ (Sodium Chloride) 250 mls @ 8.26 mls/hr IV .Q24H TANA; Protocol Last Admin: 09/19/18 16:42 Dose: 4.84 mcg/kg/hr, 20 mls/hr Propofol (Diprivan) 1,000 mg in 100 mls @ 2.43 mls/hr IV .Q24H PRN; Protocol PRN Reason: TITRATE PER MD ORDER Last Admin: 09/19/18 16:19 Dose: 40 mcg/kg/min, 9.72 mls/hr Norepinephrine Bitartrate 8 mg (/ Dextrose) 250 mls @ 7.5 mls/hr IV .Q24H PRN; Protocol PRN Reason: TITRATE PER MD ORDER Cisatracurium Besylate 100 mg/ (Dextrose) 250 mls @ 17.96 mls/hr IV .[id number] PRN; Protocol PRN Reason: Agitation Last Titration: 09/19/18 10:39 Dose: 3 mcg/kg/min, 17.96 mls/hr Esmolol HCl (Brevibloc) 250 mls @ 5.987 mls/hr IV .Q24H PRN; Protocol PRN Reason: PER TITRATION PROTOCOL Last Admin: 09/19/18 11:44 Dose: 5.987 mls/hr Lactobacillus Acidophilus (Lactobacillus) 1 cap PO BID TANA Last Admin: 09/19/18 10:44 Dose: 1 cap Methylprednisolone (Solu-Medrol) 40 mg IVP Q8H TANA Last Admin: 09/19/18 08:49 Dose: 40 mg Montelukast Sodium (Singulair) 10 mg PO HS TANA Last Admin: 09/18/18 22:21 Dose: 10 mg Pantoprazole Sodium (Protonix Inj) 40 mg IVP Q12H TANA Last Admin: 09/19/18 08:49 Dose: 40 mg - Labs Labs: 09/19/18 06:12 09/19/18 06:12 PT 13.3 SECONDS (9.7-12.2) H 09/15/18 12:23 INR 1.2 09/15/18 12:23 APTT 21 SECONDS (21-34) 09/15/18 12:23 Attending/Attestation - Attestation I have personally seen and examined this patient.: Yes I have fully participated in the care of the patient.: Yes I have reviewed all pertinent clinical information, including history, physical exam and plan: Yes Notes (Text): 09/19/18 18:02 Patient seen and examined Condition worsening Bilateral pneumothorax status post chest tube Hypoxemic Continue present treatment Prognosis poor Case discussed with family
[2018-09-19] MEDS ORDERED: Esmolol Hcl 2500mg/250ml NAC 250 ML IV SCH (10:45)
[2018-09-19] MEDS ORDERED: Esmolol Hcl 2500mg/250ml NAC 250 ML IV PRN (10:45)
[2018-09-19 10:54] LABS: ARTERIAL BLOOD GAS O2 SAT 80.1 % (95-98); ARTERIAL BLOOD GAS PCO2 > 150 mm/Hg (35-45); ARTERIAL BLOOD GAS PH 7.02 (7.35-7.45); ARTERIAL BLOOD GAS PO2 54 mm/Hg (80-100)
--- NOTE | 2018-09-19 12:00 | VASCLAB ---
Date of service: 09/16/2018 PROCEDURE: Lower Extremity Venous Duplex Exam. HISTORY: PE, r/o DVT PRIORS: None. TECHNIQUE: Bilateral common femoral, femoral, popliteal and posterior tibial, peroneal and great saphenous veins were evaluated. Flow was assessed with color Doppler, compressibility, assessment of phasic flow and augmentation response. Report prepared by Juan Beckford, SAM, RVT FINDINGS: RIGHT: 1. Common Femoral Vein: 1.1. Compressibility - Fully compressible: Thrombus - None : Flow - Phasic: Augmentation -Normal: Reflux - None. 2. Femoral Vein: 2.1. Compressibility - Fully compressible: Thrombus - None : Flow - Phasic: Augmentation -Normal: Reflux - None. 3. Popliteal Vein: 3.1. Compressibility - Fully compressible: Thrombus - None : Flow - Phasic: Augmentation -Normal: Reflux - None. 4. Posterior Tibial Vein: 4.1. Compressibility - Fully compressible: Thrombus - None: Flow - Phasic: Augmentation -Normal: Reflux - None. 5. Peroneal Vein: 5.1. Compressibility - Fully compressible: Thrombus - None: Flow - Phasic: Augmentation -Normal: Reflux - None. 6. Great Saphenous Vein: 6.1. Compressibility - : Thrombus - : Flow - : Augmentation - : Reflux - . LEFT: 1. Common Femoral Vein: 1.1. Compressibility - Fully compressible: Thrombus - None: Flow - Phasic: Augmentation -Normal: Reflux - None. 2. Femoral Vein: 2.1. Compressibility - Fully compressible: Thrombus - None: Flow - Phasic: Augmentation -Normal: Reflux - None. 3. Popliteal Vein: 3.1. Compressibility - Fully compressible: Thrombus - None : Flow - Phasic: Augmentation -Normal: Reflux - None. 4. Posterior Tibial Vein: 4.1. Compressibility - Fully compressible: Thrombus - None: Flow - Phasic: Augmentation -Normal: Reflux - None. 5. Peroneal Vein: 5.1. Compressibility - Fully compressible: Thrombus - None: Flow - Phasic: Augmentation -Normal: Reflux - None. 6. Great Saphenous Vein: 6.1. Compressibility - : Thrombus - : Flow - : Augmentation - : Reflux - . OTHER FINDINGS: Right: None significant. Left: None significant. IMPRESSION: Right: No evidence of deep or superficial vein thrombosis of the right lower extremity. Normal valve function noted of the right side. Left: No evidence of deep or superficial vein thrombosis of the left lower extremity. Normal valve function noted of the left side.
--- NOTE | 2018-09-19 12:35 | CP.PCM.PN ---
Subjective - Date & Time of Evaluation Date of Evaluation: 09/19/18 Time of Evaluation: 11:45 - Subjective Subjective: Medical attending note Patient seen, examined. Patient is intubated on vent. Patient is on sedation with propofol and fentanyl. Patient is about to get a small given sinus tachycardia noted on the monitor. Patient unable to review of systems secondary to severity of clinical condition. Patient's son Edd Andujar is at bedside. I met Edd at the time of the rapid response last . I did update Edd in regards to his mother's condition. He is aware that the prognosis is poor. He is aware that that the patient has both poor lungs as well as a weakened heart. He is aware that mom has suffered a pneumothorax and has a chest tube to allow air to permit to help her breathe. He is also aware the patient is on a muscle relaxant at bedside. I did indicate to him to have a conversation with his brothers in terms of what they would like for mom given prognosis is poor. I also did indicate to him given how frail she is that if her heart does stop we will likely be breaking bones in efforts to try to restart the heart. I also did indicate to him given the weakened heart it causes her additional risk in terms of any heart arrhythmias that could potentially stop the heart as well. Patient is nurse may at bedside witnessed during conversation. Objective - Vital Signs/Intake and Output Vital Signs (last 24 hours): Temp Pulse Resp BP Pulse Ox 99.9 F H 129 H 30 H 81/52 L 87 L 09/19/18 04:30 09/19/18 12:14 09/19/18 11:10 09/19/18 12:14 09/19/18 12:14 Intake and Output: 09/19/18 09/19/18 06:59 18:59 Intake Total 1207.0 304.5 Output Total 785 18 Balance 422.0 286.5 - Medications Medications: Current Medications Albuterol/Ipratropium (Duoneb 3 Mg/0.5 Mg (3 Ml) Ud) 3 ml INH RQ4 TANA Last Admin: 09/19/18 11:22 Dose: Not Given Heparin Sodium (Porcine) (Heparin) 5,000 units SC Q8 TANA Piperacillin Sod/Tazobactam (Sod 3.375 gm/ Sodium Chloride) 100 mls @ 200 mls/hr IVPB Q6H TANA; Protocol Last Admin: 09/19/18 05:55 Dose: 200 mls/hr Vancomycin HCl 1 gm/ Sodium (Chloride) 250 mls @ 166.7 mls/hr IVPB Q24H TANA; Protocol Last Admin: 09/18/18 17:37 Dose: 166.7 mls/hr Fentanyl Citrate 2,500 mcg/ (Sodium Chloride) 250 mls @ 8.26 mls/hr IV .Q24H TANA; Protocol Last Titration: 09/19/18 03:00 Dose: 4.84 mcg/kg/hr, 20 mls/hr Propofol (Diprivan) 1,000 mg in 100 mls @ 2.43 mls/hr IV .Q24H PRN; Protocol PRN Reason: TITRATE PER MD ORDER Last Admin: 09/19/18 07:50 Dose: 40 mcg/kg/min, 9.72 mls/hr Norepinephrine Bitartrate 8 mg (/ Dextrose) 250 mls @ 7.5 mls/hr IV .Q24H PRN; Protocol PRN Reason: TITRATE PER MD ORDER Cisatracurium Besylate 100 mg/ (Dextrose) 250 mls @ 17.96 mls/hr IV .[id number] PRN; Protocol PRN Reason: Agitation Last Titration: 09/19/18 10:39 Dose: 3 mcg/kg/min, 17.96 mls/hr Esmolol HCl (Brevibloc) 250 mls @ 5.987 mls/hr IV .Q24H PRN; Protocol PRN Reason: PER TITRATION PROTOCOL Last Admin: 09/19/18 11:44 Dose: 5.987 mls/hr Lactobacillus Acidophilus (Lactobacillus) 1 cap PO BID TANA Last Admin: 09/19/18 10:44 Dose: 1 cap Methylprednisolone (Solu-Medrol) 40 mg IVP Q8H TANA Last Admin: 09/19/18 08:49 Dose: 40 mg Montelukast Sodium (Singulair) 10 mg PO HS TANA Last Admin: 09/18/18 22:21 Dose: 10 mg Pantoprazole Sodium (Protonix Inj) 40 mg IVP Q12H TANA Last Admin: 09/19/18 08:49 Dose: 40 mg - Labs Labs: 09/19/18 06:12 09/19/18 06:12 PT 13.3 SECONDS (9.7-12.2) H 09/15/18 12:23 INR 1.2 09/15/18 12:23 APTT 21 SECONDS (21-34) 09/15/18 12:23 - Constitutional Appears: No Acute Distress, Cachectic, Chronically Ill - Head Exam Head Exam: NORMAL INSPECTION Additional comments: intubated on vent sedated - ENT Exam ENT Exam: Mucous Membranes Dry - Respiratory Exam Respiratory Exam: Decreased Breath Sounds Additional comments: on vent +chest tube - Cardiovascular Exam Cardiovascular Exam: Tachycardia, +S1, +S2 - GI/Abdominal Exam GI & Abdominal Exam: Soft, Normal Bowel Sounds. absent: Distended, Firm, Guarding, Rigid, Rebound - Extremities Exam Extremities Exam: absent: Pedal Edema, Tenderness - Neurological Exam Additional comments: sedated Assessment and Plan (1) Acute respiratory failure Status: Acute (2) Pulmonary fibrosis Status: Acute (3) Systolic heart failure Status: Acute (4) Pneumonia Status: Acute (5) Pneumothorax Status: Acute (6) Prophylactic measure Status: Acute Attending/Attestation - Attestation I have personally seen and examined this patient.: Yes I have fully participated in the care of the patient.: Yes I have reviewed all pertinent clinical information, including history, physical exam and plan: Yes Notes (Text): Assessment/Plan 1. Acute Respiratory Failure Pulmonary Fibrosis Cystic Bronchiectasis, chronic Healthcare associated pneumonia Fibrosis Pneumothorax Pulmonary Embolus Assessment/Plan * Pulmonology, Dr. Bashir, consulted help appreciated * CT chest (08/22/18): areas of dense consolidation/atelectasis in the left lung base; progressed 03/01/16. Extensive cystic changes seen throughout the left lung and less so the right upper lobe possibly representing cystic bronchiectasis. Left sided effusion possibly with some loculated components. mucous plugging changes or compressive effects on the proximal branches of the left upper and lower lobe of bronchi. mild fatty hepatic infiltration. gastric wall thickening in part of incomplete distension. markedly distended urinary b ladder, rule out urinary retention * ESRL 113, CRP: 193.80, pending BAUTISTA * Patient had refused PA chest x-ray 09/15. Patient refused CT chest repeat 09/16. Rapid response called September 15, 2018 for acute respiratory distress, tachycardia as well as patient did not look well. Patient noted accessory muscle use. Transferred to the ICU. Intubated. On Ventilator. * Bronchoscopy (bedside)with Dr. Bashir 09/16/18: F/U BAL results from the Right Medial Bronchus * Chest X Ray 09/16/18: diffuse pathcy bilateral infiltrates, left sided pneumothorax and small left sided effusion (hydropneumothorax) less well seen on this exam as compared to high resolution CT Scan and presumably has reduced in size. * Chest X Ray 09/17/18: It appears that there is a Right Upper Lobe Pneumothorax that has developed since 09/16/18. Right Chest Tube placed 09/17/18 as a result * Chest X Ray 09/18/18: shows worsening left pneumothorax and persistent right pneumonthorax * Sputum Fungus Culture 09/15/18 is negative * Mycobacterium Culture Preliminary 09/15/18: NO AFB seen * F/U Sputum Culture 09/16/18 and 09/18/18 * On Vancomycin and Zosyn. * Blood Culture 09/10/18 finalized at 5 days as negative. * Blood Culture 09/16/18: negative to date * F/U pending Sputum Cultures mentioned above. * Repeat Catheterized Urine Culture 09/16/18: NO growth * Procalcitonin: 1.32 and normalized on repeat * S/P Left Mid Axillary Chest Tube Placement 09/16/18 * S/P Right Chest Tube Placement 09/17/18 * Patient was placed on therapeutic lovenox for treatment of PE however had an H/H drop required blood transfusion noted on 09/17/18. * Recent admission labs (08/22-09/03) * ANCA screen is negative * Proteinase 3 <1.0 * myeloperoxidase <1.0 * b DGlucan negative * indeterminate quantiferon * Aspergillus flavus negative * Aspergillus fumigatus negative * Aspergillus niger negative * HIV negative * influenza negative * Hepatitis negative * Rheumatoid factor IgM elevated at 80 * Blood culture (08/22/18): no growth after 5 days X2 * Myobacterial culture (08/23/18): negative for AFB. prelim * Myobacterial culture (08/25/18): negative for AFB. prelim * Myobacterial culture (08/28/18): negative for AFB. prelim * Mycobacterium complex PCR negative * Hisplasmosis AB negative, MARY level normal * Solumedrol 40mg IV Q12H * On ventilator: management per ICU * Sedated, Fenantyl IV,Cisatorinum * Patient is high risk given lung and cardiac status; poor prognosis Hyponatremia (resolved) * Nephro Consulted: Dr. Angélica malik appreciated * Improved with PO fluid restriction, should continue the same with goal <1.5L per day; awaiting repeat urine osm; * normalized Abdominal pain, resolved * Likely due to potassium chloride medications pt was discharged with * Abdominal CT with IV contrast prelim reading shows ileus vs developing enteritis * Leukocytosis likely due to steroid treatment? * Protonix 40 mg IV Q12H * Given Cipro 400 mg IVPB x 1, Flagyl 500 mg IVPB x 1, Pepcid 20 mg PO, Maalox 30 mL PO in the ED Heart Failure with Reduced Ejection Fraction, chronic * Echocardiogram (08/27/18) left ventricular systolic function is severely impaired. ejection fraction is 25-30%. atrial septum aneurysmal. possible asd? no aortic regurgitation is present. mitral regurgitation is mild to moderate. mild tricuspid regurgitation. mild pulmonary hypertension. * Cardiac cath showed nonischemic cardiomyopathy. Dr. Pedraza, cardiology, evaluated the pt on last admission and recommended medical HFrEF management rather than lifevest/aicd placement. * Carvedilol 3.125 mg PO BID on hold considering need for Norepinephrine for low blood pressure * Losartan 25 mg PO on hold, Aldactone 12.5 mg PO once daily on hold (given borderline potassium level) * Lasix 20mg po daily on hold considering need for Norepinephrine for low blood pressure Leukocytosis * Influenza negative * Zosyn 3.375g IVPB Q6H (active since 09/11/18) * Vancomycin 1 gram IVPB Q24h (active since 09/11/18) * Solumedrol 40mg IVPB Q8H * On Vancomycin and Zosyn. * Blood Culture 09/10/18 finalized at 5 days as negative. * Blood Culture 09/16/18: negative to date * F/U pending Sputum Cultures mentioned above. * Repeat Catheterized Urine Culture 09/16/18: NO growth * Procalcitonin: 1.32 and normalized on repeat Cachexia * 30lb weight loss in 2 months * Lab Analyst referral * Ensure Compact TID (660 kcals, 27 gm protein) PPx * DVT ppx: SCDs * GI: Protonix 40 mg IV Q12H and Lactobacillus 2x/day * Diet: PulmCare at 25 ml/hr via oral gastric tube * Skin: AloVesta for 1 cm Circular Stage II Right Buttock Ulcer and repositioning of patient Q2H * Aspiration precautions due to increased mucus production * On therapeutic lovenox for PE seen on 09/15/18 CT; patient had refused dvt ppx heparin during hospitalization; therapuetic lovenox d/c following H/H on 09/17/18 requiring blood transfusion * Full code * Palliative care on board * Intubated 09/15/18 * Poor prognosis-->discussed with patient's son Edd at bedside who speak to his brothers as well regarding her need of ventilator, the poor quality of her lungs and heart, and the possibility that she may .
--- NOTE | 2018-09-19 13:46 | CP.CCUPN ---
<Jimmy Nassar - Last Filed: 09/19/18 14:05> CCU Subjective - Physician Review Subjective (Free Text): 09/19/18 14:10 PGY-1 Critical Care Progress Note for Dr. Urban Patient seen and evaluated at bedside. No acute events overnight. I spoke with patient's son, Pavel Mistry, at bedside regarding change in code status to DNR. Dr. Harmon made decision as surrogate medical decision maker for patient to change status to DNR - consent to change code status in patient's chart. ROS unable to be obtained. CCU Objective - Vital Signs / Intake & Output Vital Signs (Last 4 hours): Vital Signs Pulse Resp BP Pulse Ox 09/19/18 12:14 129 H 81/52 L 87 L 09/19/18 12:10 128 H 89/56 L 87 L 09/19/18 12:00 135 H 87 L 09/19/18 11:30 166 H 87 L 09/19/18 11:10 143 H 30 H 100/70 87 L 09/19/18 11:00 144 H 30 H 87 L 09/19/18 10:30 144 H 30 H 77 L 09/19/18 10:09 140 H 30 H 106/69 75 L 09/19/18 10:00 139 H 30 H 74 L Intake and Output (Last 8hrs): Intake & Output 09/18/18 09/19/18 09/19/18 22:59 06:59 14:59 Intake Total 532.0 903.0 555.0 Output Total 450 625 148 Balance 82.0 278.0 407.0 Weight 88 lb Intake: IV 66 286 84.0 Intake, IV Amount 196.0 322.0 231.0 Left Distal Port Internal 64 72.5 58.2 Jugular Left Medial Port Internal 100 6.1 Jugular Left Proximal Port 132.0 149.5 123.5 Internal Jugular Left Proximal Port 33.2 Internal Jugular Y-site Right Forearm 10 Tube Feeding 270 295 240 Output: Chest Tube Drainage 120 105 Left Mid-Axillary Chest 80 70 Right Upper Mid-Axillary 40 35 Chest Urine 330 520 148 2-way Urethral 330 520 148 Other: # Bowel Movements 0 0 0 - Physical Exam Head: Positive for: Atraumatic, Normocephalic Pupils: Positive for: PERRL Extroacular Muscles: Positive for: EOMI Respiratory/Chest: Positive for: Clear to Auscultation, Other (intubated, on vent) Cardiovascular: Positive for: Normal S1, S2, Peripheal Pulses Present, Tachycardic (120s on monitor) Neurological: Positive for: Other (sedated). Negative for: GCS=15 Skin: Positive for: Dry, Normal Color - Medications Active Medications: Active Medications Generic Name Dose Route Start Last Admin Trade Name Freq PRN Reason Stop Dose Admin Albuterol/Ipratropium 3 ml 09/12/18 12:00 09/19/18 11:22 Duoneb 3 Mg/0.5 Mg (3 Ml) Ud INH Not Given RQ4 TANA Heparin Sodium (Porcine) 5,000 units 09/19/18 14:00 Heparin SC Q8 TANA Piperacillin Sod/Tazobactam 100 mls @ 200 mls/hr 09/11/18 06:30 09/19/18 05:55 Sod 3.375 gm/ Sodium Chloride IVPB 200 mls/hr Q6H TANA Administration Protocol Vancomycin HCl 1 gm/ Sodium 250 mls @ 166.7 mls/hr 09/11/18 18:15 09/18/18 17:37 Chloride IVPB 166.7 mls/hr Q24H TANA Administration Protocol Fentanyl Citrate 2,500 mcg/ 250 mls @ 8.26 mls/hr 09/15/18 23:45 09/19/18 03:00 Sodium Chloride IV 4.84 mcg/kg/hr .Q24H TANA 20 mls/hr Titration Protocol 2 MCG/KG/HR Propofol 1,000 mg in 100 mls @ 2.43 mls/hr 09/17/18 00:11 09/19/18 07:50 Diprivan IV 40 mcg/kg/min .Q24H PRN 9.72 mls/hr TITRATE PER MD ORDER Administration Protocol 10 MCG/KG/MIN Norepinephrine Bitartrate 8 mg 250 mls @ 7.5 mls/hr 09/17/18 17:00 / Dextrose IV .Q24H PRN TITRATE PER MD ORDER Protocol 4 MCG/MIN Cisatracurium Besylate 100 mg/ 250 mls @ 17.96 mls/hr 09/19/18 10:00 09/19/18 10:39 Dextrose IV 3 mcg/kg/min .[id number] PRN 17.96 mls/hr Agitation Titration Protocol 3 MCG/KG/MIN Esmolol HCl 250 mls @ 5.987 mls/hr 09/19/18 10:45 09/19/18 11:44 Brevibloc IV 5.987 mls/hr .Q24H PRN Administration PER TITRATION PROTOCOL Protocol 25 MCG/KG/MIN Lactobacillus Acidophilus 1 cap 09/15/18 18:00 09/19/18 10:44 Lactobacillus PO 1 cap BID TANA Administration Methylprednisolone 40 mg 09/12/18 09:45 09/19/18 08:49 Solu-Medrol IVP 40 mg Q8H TANA Administration Montelukast Sodium 10 mg 09/10/18 22:00 09/18/18 22:21 Singulair PO 10 mg HS TANA Administration Pantoprazole Sodium 40 mg 09/17/18 08:30 09/19/18 08:49 Protonix Inj IVP 40 mg Q12H TANA Administration - Patient Studies Lab Studies: Microbiology Studies 09/16/18 18:30 Bronchial Culture - Final Bronchial Washings No growth. 09/16/18 18:30 Fungal Culture - Preliminary Lung 09/16/18 18:30 Mycobacterial Culture - Preliminary Other: Please Indicate 09/16/18 05:59 Gram Stain - Final Trachasp Sputum Culture - Final NORMAL ORAL DARON Lab Studies 09/19/18 09/19/18 09/19/18 Range/Units 10:55 10:51 06:12 WBC (4.8-10.8) K/uL RBC (3.80-5.20) Mil/uL Hgb (11.0-16.0) g/dL Hct (34.0-47.0) % MCV (81.0-99.0) fL MCH (27.0-31.0) pg MCHC (33.0-37.0) g/dL RDW (11.5-14.5) % Plt Count (130-400) K/uL MPV (7.2-11.7) fL Puncture Site Rba pCO2 > 150 H* (35-45) mm/Hg pO2 54 L (80-100) mm/Hg HCO3 (21-28) mmol/L ABG pH 7.02 L* (7.35-7.45) ABG Total CO2 (22-28) mmol/L ABG O2 Saturation 80.1 L (95-98) % ABG Base Excess (-2.0-3.0) mmol/L ABG Hemoglobin 11.0 L (11.7-17.4) g/dL ABG Carboxyhemoglobin 2.7 H (0.5-1.5) % POC ABG HHb (Measured) 19.2 H (0.0-5.0) % ABG Methemoglobin 0.9 (0.0-3.0) % Jose Test Na A-a O2 Difference 465.0 mm/Hg Respiratory Index 8.6 Hgb O2 Saturation 77.2 L (95.0-98.0) % Vent Mode A/c pc Mechanical Rate 30 FiO2 100.0 % Tidal Volume PEEP 5 Crit Value Called To Wilmar paul Crit Value Called By Becky Crit Value Read Back Y Blood Gas Notified Time 1054 Sodium 148 (132-148) mmol/L Potassium 4.5 (3.6-5.2) mmol/L Chloride 111 H (98-107) mmol/L Carbon Dioxide 38 H (22-30) mmol/L Anion Gap 3 L (10-20) BUN 31 H (7-17) mg/dL Creatinine 0.7 (0.7-1.2) mg/dL Est GFR ( Amer) > 60 Est GFR (Non-Af Amer) > 60 Random Glucose 179 H (65-105) mg/dL Calcium 9.2 (8.6-10.4) mg/dl Phosphorus 2.9 (2.5-4.5) mg/dL Magnesium 2.6 H (1.6-2.3) mg/dL Total Bilirubin 0.4 (0.2-1.3) mg/dL AST 44 H D (14-36) U/L ALT 28 (9-52) U/L Alkaline Phosphatase 108 (38-126) U/L Total Protein 5.5 L (6.3-8.3) g/dL Albumin 2.7 L (3.5-5.0) g/dL Globulin 2.8 (2.2-3.9) gm/dL Albumin/Globulin Ratio 1.0 (1.0-2.1) Procalcitonin 0.08 L (0.19-0.49) NG/ML 09/19/18 09/19/18 Range/Units 06:12 05:23 WBC 20.0 H (4.8-10.8) K/uL RBC 3.84 (3.80-5.20) Mil/uL Hgb 10.4 L (11.0-16.0) g/dL Hct 31.8 L (34.0-47.0) % MCV 82.7 (81.0-99.0) fL MCH 27.2 (27.0-31.0) pg MCHC 32.8 L (33.0-37.0) g/dL RDW 17.7 H (11.5-14.5) % Plt Count 244 (130-400) K/uL MPV 10.3 (7.2-11.7) fL Puncture Site R bra pCO2 66 H (35-45) mm/Hg pO2 45 L (80-100) mm/Hg HCO3 33.1 H (21-28) mmol/L ABG pH 7.37 (7.35-7.45) ABG Total CO2 40.2 H (22-28) mmol/L ABG O2 Saturation 83.7 L (95-98) % ABG Base Excess 10.9 H (-2.0-3.0) mmol/L ABG Hemoglobin 10.2 L (11.7-17.4) g/dL ABG Carboxyhemoglobin 2.4 H (0.5-1.5) % POC ABG HHb (Measured) 15.8 H (0.0-5.0) % ABG Methemoglobin 0.6 (0.0-3.0) % Jose Test Na A-a O2 Difference 586.0 mm/Hg Respiratory Index 13.0 Hgb O2 Saturation 81.2 L (95.0-98.0) % Vent Mode Prvc Mechanical Rate 25 FiO2 100.0 % Tidal Volume 350 PEEP Crit Value Called To Crit Value Called By Crit Value Read Back Blood Gas Notified Time Sodium (132-148) mmol/L Potassium (3.6-5.2) mmol/L Chloride (98-107) mmol/L Carbon Dioxide (22-30) mmol/L Anion Gap (10-20) BUN (7-17) mg/dL Creatinine (0.7-1.2) mg/dL Est GFR ( Amer) Est GFR (Non-Af Amer) Random Glucose (65-105) mg/dL Calcium (8.6-10.4) mg/dl Phosphorus (2.5-4.5) mg/dL Magnesium (1.6-2.3) mg/dL Total Bilirubin (0.2-1.3) mg/dL AST (14-36) U/L ALT (9-52) U/L Alkaline Phosphatase (38-126) U/L Total Protein (6.3-8.3) g/dL Albumin (3.5-5.0) g/dL Globulin (2.2-3.9) gm/dL Albumin/Globulin Ratio (1.0-2.1) Procalcitonin (0.19-0.49) NG/ML Laboratory Results - last 24 hr 09/19/18 09/19/18 09/19/18 05:23 06:12 06:12 WBC 20.0 H RBC 3.84 Hgb 10.4 L Hct 31.8 L MCV 82.7 MCH 27.2 MCHC 32.8 L RDW 17.7 H Plt Count 244 MPV 10.3 Puncture Site R bra pCO2 66 H pO2 45 L HCO3 33.1 H ABG pH 7.37 ABG Total CO2 40.2 H ABG O2 Saturation 83.7 L ABG Base Excess 10.9 H ABG Hemoglobin 10.2 L ABG Carboxyhemoglobin 2.4 H POC ABG HHb (Measured) 15.8 H ABG Methemoglobin 0.6 Jose Test Na A-a O2 Difference 586.0 Respiratory Index 13.0 Hgb O2 Saturation 81.2 L Vent Mode Prvc Mechanical Rate 25 FiO2 100.0 Tidal Volume 350 PEEP Crit Value Called To Crit Value Called By Crit Value Read Back Blood Gas Notified Time Sodium 148 Potassium 4.5 Chloride 111 H Carbon Dioxide 38 H Anion Gap 3 L BUN 31 H Creatinine 0.7 Est GFR ( Amer) > 60 Est GFR (Non-Af Amer) > 60 Random Glucose 179 H Calcium 9.2 Phosphorus 2.9 Magnesium 2.6 H Total Bilirubin 0.4 AST 44 H D ALT 28 Alkaline Phosphatase 108 Total Protein 5.5 L Albumin 2.7 L Globulin 2.8 Albumin/Globulin Ratio 1.0 Procalcitonin 09/19/18 09/19/18 10:51 10:55 WBC RBC Hgb Hct MCV MCH MCHC RDW Plt Count MPV Puncture Site Rba pCO2 > 150 H* pO2 54 L HCO3 ABG pH 7.02 L* ABG Total CO2 ABG O2 Saturation 80.1 L ABG Base Excess ABG Hemoglobin 11.0 L ABG Carboxyhemoglobin 2.7 H POC ABG HHb (Measured) 19.2 H ABG Methemoglobin 0.9 Jose Test Na A-a O2 Difference 465.0 Respiratory Index 8.6 Hgb O2 Saturation 77.2 L Vent Mode A/c pc Mechanical Rate 30 FiO2 100.0 Tidal Volume PEEP 5 Crit Value Called To Wilmar paul Crit Value Called By Becky Crit Value Read Back Y Blood Gas Notified Time 1054 Sodium Potassium Chloride Carbon Dioxide Anion Gap BUN Creatinine Est GFR ( Amer) Est GFR (Non-Af Amer) Random Glucose Calcium Phosphorus Magnesium Total Bilirubin AST ALT Alkaline Phosphatase Total Protein Albumin Globulin Albumin/Globulin Ratio Procalcitonin 0.08 L Radiology Impressions: Radiology Impressions Duplex Scan Lower Extremity Artery 09/15/18 18:45 IMPRESSION: Right: No evidence of deep or superficial vein thrombosis of the right lower extremity. Normal valve function noted of the right side. Left: No evidence of deep or superficial vein thrombosis of the left lower extremity. Normal valve function noted of the left side. Chest X-Ray 09/18/18 12:41 IMPRESSION: Stable tubes and lines. Stable appearance of dense bilateral pleural parenchymal opacities and small bilateral pneumothoraces. Chest X-Ray 09/19/18 07:00 Impression: Overall no significant interval change since the prior study. EKG/Cardiology Studies: Cardiology / EKG Studies 09/19/18 07:20 EKG [ELECTROCARDIOGRAM] Stat Comment: Mode Of Transportation: Reason For Exam: tachycardia Fingerstick Blood Sugar Results: 179 Review of Systems - Review of Systems Systems not reviewed;Unavailable: Intubated Assessment/Plan - Assessment and Plan (Free Text) Assessment: 68 year old female with hx bronchiectasis, HFrEF in worsening respiratory state, brought to ICU for vent support and close monitoring. Bilateral chest tubes in place, patient still on vent. Pulm Bronchiectasis/Suspected Fibrotic Lung Disease/R Lung Pneumothorax -Noted to have signficant lung disease on prior CT with worsening pneumothorax on CXR -Patient sedated and intubated, on vent -Significant R pneumo on CXR 09/15 -STAT CT Surgery consult, Dr. Josue for chest tube evaluation --S/p pigtail catheter insertion overnight with decrease in size on follow-up x- ray -Patient remains in severe respiratory distress on vent -Vent: PRVC --> Pressure Control -Repeat ABG - f/u Cardio Hx HFrEF -C/w HF meds -Strict Is and Os -Cardiology on board Tachycardia -HR 160s sinus on monitor -Esmolol drip started - --> improved to 120s/130s ID Pneumonia -Patchy bilateral infiltrates on CXR -Abx per ID - Dr. Land --Vanc, Zosyn -Urine growing yeast species 09/14 -Sputum culture - pending PPx -Protonix 20 mg IV daily -ETT in place -Code Status - Updated to DNR 09/19 (consent in chart) Assessment and plan d/w Dr. Wilmar Nassar, PGY-1 <Milad Urban - Last Filed: 09/19/18 17:04> CCU Objective - Vital Signs / Intake & Output Vital Signs (Last 4 hours): Vital Signs Pulse Resp BP Pulse Ox 09/19/18 16:00 129 H 30 H 95/62 L 88 L 09/19/18 15:30 131 H 91 L 09/19/18 15:09 131 H 88/57 L 90 L 09/19/18 15:00 133 H 91 L 09/19/18 14:30 133 H 92 L 09/19/18 14:10 132 H 88/55 L 91 L 09/19/18 14:00 133 H 87 L 09/19/18 13:30 138 H 86 L 09/19/18 13:10 126 H 81/54 L 87 L Intake and Output (Last 8hrs): Intake & Output 09/19/18 09/19/18 09/19/18 06:59 14:59 22:59 Intake Total 903.0 838.4 533.4 Output Total 625 175 25 Balance 278.0 663.4 508.4 Weight 88 lb Intake: IV 286 84.0 350 Intake, IV Amount 322.0 434.4 103.4 Left Distal Port Internal 72.5 77.6 19.4 Jugular Left Medial Port Internal 100 18.3 12.2 Jugular Left Proximal Port 149.5 164.9 41.4 Internal Jugular Left Proximal Port 63.6 30.4 Internal Jugular Y-site Right Forearm 110 0 Tube Feeding 295 320 80 Output: Chest Tube Drainage 105 Left Mid-Axillary Chest 70 Right Upper Mid-Axillary 35 Chest Urine 520 175 25 2-way Urethral 520 175 25 Other: # Bowel Movements 0 0 0 - Medications Active Medications: Active Medications Generic Name Dose Route Start Last Admin Trade Name Freq PRN Reason Stop Dose Admin Albuterol/Ipratropium 3 ml 09/12/18 12:00 09/19/18 11:22 Duoneb 3 Mg/0.5 Mg (3 Ml) Ud INH Not Given RQ4 TANA Heparin Sodium (Porcine) 5,000 units 09/19/18 14:00 09/19/18 14:27 Heparin SC 5,000 units Q8 TANA Administration Piperacillin Sod/Tazobactam 100 mls @ 200 mls/hr 09/11/18 06:30 09/19/18 13:20 Sod 3.375 gm/ Sodium Chloride IVPB 200 mls/hr Q6H TANA Administration Protocol Vancomycin HCl 1 gm/ Sodium 250 mls @ 166.7 mls/hr 09/11/18 18:15 09/18/18 17:37 Chloride IVPB 166.7 mls/hr Q24H TANA Administration Protocol Fentanyl Citrate 2,500 mcg/ 250 mls @ 8.26 mls/hr 09/15/18 23:45 09/19/18 16:42 Sodium Chloride IV 4.84 mcg/kg/hr .Q24H TANA 20 mls/hr Administration Protocol 2 MCG/KG/HR Propofol 1,000 mg in 100 mls @ 2.43 mls/hr 09/17/18 00:11 09/19/18 16:19 Diprivan IV 40 mcg/kg/min .Q24H PRN 9.72 mls/hr TITRATE PER MD ORDER Administration Protocol 10 MCG/KG/MIN Norepinephrine Bitartrate 8 mg 250 mls @ 7.5 mls/hr 09/17/18 17:00 / Dextrose IV .Q24H PRN TITRATE PER MD ORDER Protocol 4 MCG/MIN Cisatracurium Besylate 100 mg/ 250 mls @ 17.96 mls/hr 09/19/18 10:00 09/19/18 10:39 Dextrose IV 3 mcg/kg/min .[id number] PRN 17.96 mls/hr Agitation Titration Protocol 3 MCG/KG/MIN Esmolol HCl 250 mls @ 5.987 mls/hr 09/19/18 10:45 09/19/18 11:44 Brevibloc IV 5.987 mls/hr .Q24H PRN Administration PER TITRATION PROTOCOL Protocol 25 MCG/KG/MIN Lactobacillus Acidophilus 1 cap 09/15/18 18:00 09/19/18 10:44 Lactobacillus PO 1 cap BID TANA Administration Methylprednisolone 40 mg 09/12/18 09:45 09/19/18 08:49 Solu-Medrol IVP 40 mg Q8H TANA Administration Montelukast Sodium 10 mg 09/10/18 22:00 09/18/18 22:21 Singulair PO 10 mg HS TANA Administration Pantoprazole Sodium 40 mg 09/17/18 08:30 09/19/18 08:49 Protonix Inj IVP 40 mg Q12H TANA Administration - Patient Studies Lab Studies: Microbiology Studies 09/16/18 18:30 Bronchial Culture - Final Bronchial Washings No growth. 09/16/18 18:30 Fungal Culture - Preliminary Lung 09/16/18 18:30 Mycobacterial Culture - Preliminary Other: Please Indicate Lab Studies 09/19/18 09/19/18 09/19/18 Range/Units 16:05 10:55 10:51 WBC (4.8-10.8) K/uL RBC (3.80-5.20) Mil/uL Hgb (11.0-16.0) g/dL Hct (34.0-47.0) % MCV (81.0-99.0) fL MCH (27.0-31.0) pg MCHC (33.0-37.0) g/dL RDW (11.5-14.5) % Plt Count (130-400) K/uL MPV (7.2-11.7) fL Puncture Site Rba Rba pCO2 100 H* > 150 H* (35-45) mm/Hg pO2 57 L 54 L (80-100) mm/Hg HCO3 29.2 H (21-28) mmol/L ABG pH 7.17 L* 7.02 L* (7.35-7.45) ABG Total CO2 39.6 H (22-28) mmol/L ABG O2 Saturation 90.4 L 80.1 L (95-98) % ABG Base Excess 5.7 H (-2.0-3.0) mmol/L ABG Hemoglobin 10.1 L 11.0 L (11.7-17.4) g/dL ABG Carboxyhemoglobin 2.5 H 2.7 H (0.5-1.5) % POC ABG HHb (Measured) 9.3 H 19.2 H (0.0-5.0) % ABG Methemoglobin 0.8 0.9 (0.0-3.0) % Jose Test Na Na A-a O2 Difference 531.0 465.0 mm/Hg Respiratory Index 9.3 8.6 Hgb O2 Saturation 87.4 L 77.2 L (95.0-98.0) % Vent Mode Prvc A/c pc Mechanical Rate 30 30 FiO2 100.0 100.0 % Tidal Volume 300 PEEP 5 5 Crit Value Called To Wilmar Urban md Crit Value Called By Becky Pena Crit Value Read Back Y Y Blood Gas Notified Time 1609 1054 Sodium (132-148) mmol/L Potassium (3.6-5.2) mmol/L Chloride (98-107) mmol/L Carbon Dioxide (22-30) mmol/L Anion Gap (10-20) BUN (7-17) mg/dL Creatinine (0.7-1.2) mg/dL Est GFR ( Amer) Est GFR (Non-Af Amer) Random Glucose (65-105) mg/dL Calcium (8.6-10.4) mg/dl Phosphorus (2.5-4.5) mg/dL Magnesium (1.6-2.3) mg/dL Total Bilirubin (0.2-1.3) mg/dL AST (14-36) U/L ALT (9-52) U/L Alkaline Phosphatase (38-126) U/L Total Protein (6.3-8.3) g/dL Albumin (3.5-5.0) g/dL Globulin (2.2-3.9) gm/dL Albumin/Globulin Ratio (1.0-2.1) Procalcitonin 0.08 L (0.19-0.49) NG/ML 09/19/18 09/19/18 09/19/18 Range/Units 06:12 06:12 05:23 WBC 20.0 H (4.8-10.8) K/uL RBC 3.84 (3.80-5.20) Mil/uL Hgb 10.4 L (11.0-16.0) g/dL Hct 31.8 L (34.0-47.0) % MCV 82.7 (81.0-99.0) fL MCH 27.2 (27.0-31.0) pg MCHC 32.8 L (33.0-37.0) g/dL RDW 17.7 H (11.5-14.5) % Plt Count 244 (130-400) K/uL MPV 10.3 (7.2-11.7) fL Puncture Site R bra pCO2 66 H (35-45) mm/Hg pO2 45 L (80-100) mm/Hg HCO3 33.1 H (21-28) mmol/L ABG pH 7.37 (7.35-7.45) ABG Total CO2 40.2 H (22-28) mmol/L ABG O2 Saturation 83.7 L (95-98) % ABG Base Excess 10.9 H (-2.0-3.0) mmol/L ABG Hemoglobin 10.2 L (11.7-17.4) g/dL ABG Carboxyhemoglobin 2.4 H (0.5-1.5) % POC ABG HHb (Measured) 15.8 H (0.0-5.0) % ABG Methemoglobin 0.6 (0.0-3.0) % Jose Test Na A-a O2 Difference 586.0 mm/Hg Respiratory Index 13.0 Hgb O2 Saturation 81.2 L (95.0-98.0) % Vent Mode Prvc Mechanical Rate 25 FiO2 100.0 % Tidal Volume 350 PEEP Crit Value Called To Crit Value Called By Crit Value Read Back Blood Gas Notified Time Sodium 148 (132-148) mmol/L Potassium 4.5 (3.6-5.2) mmol/L Chloride 111 H (98-107) mmol/L Carbon Dioxide 38 H (22-30) mmol/L Anion Gap 3 L (10-20) BUN 31 H (7-17) mg/dL Creatinine 0.7 (0.7-1.2) mg/dL Est GFR ( Amer) > 60 Est GFR (Non-Af Amer) > 60 Random Glucose 179 H (65-105) mg/dL Calcium 9.2 (8.6-10.4) mg/dl Phosphorus 2.9 (2.5-4.5) mg/dL Magnesium 2.6 H (1.6-2.3) mg/dL Total Bilirubin 0.4 (0.2-1.3) mg/dL AST 44 H D (14-36) U/L ALT 28 (9-52) U/L Alkaline Phosphatase 108 (38-126) U/L Total Protein 5.5 L (6.3-8.3) g/dL Albumin 2.7 L (3.5-5.0) g/dL Globulin 2.8 (2.2-3.9) gm/dL Albumin/Globulin Ratio 1.0 (1.0-2.1) Procalcitonin (0.19-0.49) NG/ML Laboratory Results - last 24 hr 09/19/18 09/19/18 09/19/18 05:23 06:12 06:12 WBC 20.0 H RBC 3.84 Hgb 10.4 L Hct 31.8 L MCV 82.7 MCH 27.2 MCHC 32.8 L RDW 17.7 H Plt Count 244 MPV 10.3 Puncture Site R bra pCO2 66 H pO2 45 L HCO3 33.1 H ABG pH 7.37 ABG Total CO2 40.2 H ABG O2 Saturation 83.7 L ABG Base Excess 10.9 H ABG Hemoglobin 10.2 L ABG Carboxyhemoglobin 2.4 H POC ABG HHb (Measured) 15.8 H ABG Methemoglobin 0.6 Jose Test Na A-a O2 Difference 586.0 Respiratory Index 13.0 Hgb O2 Saturation 81.2 L Vent Mode Prvc Mechanical Rate 25 FiO2 100.0 Tidal Volume 350 PEEP Crit Value Called To Crit Value Called By Crit Value Read Back Blood Gas Notified Time Sodium 148 Potassium 4.5 Chloride 111 H Carbon Dioxide 38 H Anion Gap 3 L BUN 31 H Creatinine 0.7 Est GFR ( Amer) > 60 Est GFR (Non-Af Amer) > 60 Random Glucose 179 H Calcium 9.2 Phosphorus 2.9 Magnesium 2.6 H Total Bilirubin 0.4 AST 44 H D ALT 28 Alkaline Phosphatase 108 Total Protein 5.5 L Albumin 2.7 L Globulin 2.8 Albumin/Globulin Ratio 1.0 Procalcitonin 09/19/18 09/19/18 09/19/18 10:51 10:55 16:05 WBC RBC Hgb Hct MCV MCH MCHC RDW Plt Count MPV Puncture Site Rba Rba pCO2 > 150 H* 100 H* pO2 54 L 57 L HCO3 29.2 H ABG pH 7.02 L* 7.17 L* ABG Total CO2 39.6 H ABG O2 Saturation 80.1 L 90.4 L ABG Base Excess 5.7 H ABG Hemoglobin 11.0 L 10.1 L ABG Carboxyhemoglobin 2.7 H 2.5 H POC ABG HHb (Measured) 19.2 H 9.3 H ABG Methemoglobin 0.9 0.8 Jose Test Na Na A-a O2 Difference 465.0 531.0 Respiratory Index 8.6 9.3 Hgb O2 Saturation 77.2 L 87.4 L Vent Mode A/c pc Prvc Mechanical Rate 30 30 FiO2 100.0 100.0 Tidal Volume 300 PEEP 5 5 Crit Value Called To Wilmar Urban md Crit Value Called By Becky Pena Crit Value Read Back Y Y Blood Gas Notified Time 1054 1609 Sodium Potassium Chloride Carbon Dioxide Anion Gap BUN Creatinine Est GFR ( Amer) Est GFR (Non-Af Amer) Random Glucose Calcium Phosphorus Magnesium Total Bilirubin AST ALT Alkaline Phosphatase Total Protein Albumin Globulin Albumin/Globulin Ratio Procalcitonin 0.08 L Radiology Impressions: Radiology Impressions Duplex Scan Lower Extremity Artery 09/15/18 18:45 IMPRESSION: Right: No evidence of deep or superficial vein thrombosis of the right lower extremity. Normal valve function noted of the right side. Left: No evidence of deep or superficial vein thrombosis of the left lower extremity. Normal valve function noted of the left side. Chest X-Ray 09/19/18 07:00 Impression: Overall no significant interval change since the prior study. EKG/Cardiology Studies: Cardiology / EKG Studies 09/19/18 07:20 EKG [ELECTROCARDIOGRAM] Stat Comment: Mode Of Transportation: Reason For Exam: tachycardia Attending/Attestation - Attestation I have personally seen and examined this patient.: Yes I have fully participated in the care of the patient.: Yes I have reviewed all pertinent clinical information: Yes Notes (Text): 09/19/18 17:03 Patient this morning was severely hypoxic. She was also hypercapnic. Initially attempted to pressure control ventilation, but unable to oxygenate well. Now currently on PRBC mode. Respiration rate is 30. She is also being paralyzed sedated. I spoke to the patient's family. The sign DNR. They recommended comfort care. Possible terminal extubation tomorrow. Currently on antibiotic antifungal and steroid. We will continue the current
--- NOTE | 2018-09-19 15:12 | CARD ---
APPROVED REPORT Date of service: 09/18/2018 EKG Measurement Heart [id number] <Conclusion> Sinus tachycardia Otherwise normal ECG
[2018-09-19 16:09] LABS: ARTERIAL BLOOD GAS HCO3 29.2 mmol/L (21-28); ARTERIAL BLOOD GAS HEMOGLOBIN 10.1 g/dL (11.7-17.4); ARTERIAL BLOOD GAS O2 SAT 90.4 % (95-98); ARTERIAL BLOOD GAS PCO2 100 mm/Hg (35-45); ARTERIAL BLOOD GAS PH 7.17 (7.35-7.45); ARTERIAL BLOOD GAS PO2 57 mm/Hg (80-100); ARTERIAL BLOOD GAS TCO2 39.6 mmol/L (22-28)
[2018-09-20] MEDS: Albuterol-Ipratrop 3 mg / 0.5 (3 ml) UD INH SCH ×4 (00:10→12:15)
[2018-09-20] MEDS: Cisatracurium Besylate 100 MG in Dextrose 5% In Water 240 ML IV PRN (00:43)
[2018-09-20] MEDS: Piperacillin/Tazobact 3.375 GM in Sodium Chloride 100 ML IVPB SCH ×3 (00:44→11:29)
[2018-09-20] MEDS: MethylPREDNISolone 40 mg Vial IVP SCH ×2 (00:48→10:15)
[2018-09-20] MEDS: Propofol 10 mg/ml 1,000 MG/100 ML VIAL IV PRN ×2 (03:00→10:58)
[2018-09-20 05:48] LABS: ARTERIAL BLOOD GAS HCO3 29.4 mmol/L (21-28); ARTERIAL BLOOD GAS HEMOGLOBIN 10.4 g/dL (11.7-17.4); ARTERIAL BLOOD GAS O2 SAT 83.7 % (95-98); ARTERIAL BLOOD GAS PCO2 99 mm/Hg (35-45); ARTERIAL BLOOD GAS PH 7.18 (7.35-7.45); ARTERIAL BLOOD GAS PO2 45 mm/Hg (80-100)
[2018-09-20 06:20] LABS: HEMOGLOBIN 10.6 g/dL (11.0-16.0); MEAN CELL VOLUME 85.3 fL (81.0-99.0); MEAN CORPUSCULAR HEMOGLOBIN 26.9 pg (27.0-31.0); MEAN CORPUSCULAR HGB CONC 31.5 g/dL (33.0-37.0); MEAN PLATELET VOLUME 10.5 fL (7.2-11.7); RBC 3.96 Mil/uL (3.80-5.20); WHITE BLOOD COUNT 15.8 K/uL (4.8-10.8)
--- NOTE | 2018-09-20 06:21 | CP.PCM.PN ---
Subjective - Date & Time of Evaluation Date of Evaluation: 09/20/18 Time of Evaluation: 06:19 - Subjective Subjective: Thoracic Surgery Progress Note- Dr. Cantrell Patient seen and examined at bedside. yesterday had a family meeting about goals of care. currently DNR. Intubated and sedated on propfol 40, fentayl 200, esmolol ggt 25, nimbex 2.5. PRVC 300/30/100/5. Bilateral chest tubes in place to suction. Left 95cc serosang fluid + air leak, Right 60cc serosang fluid no air leak. currently on tube feeds. on Hep GGt for PE. Objective - Vital Signs/Intake and Output Vital Signs (last 24 hours): Temp Pulse Resp BP Pulse Ox 99.2 F 128 H 30 H 103/69 86 L 09/20/18 04:00 09/20/18 04:09 09/20/18 04:09 09/20/18 04:09 09/20/18 04:09 Intake and Output: 09/19/18 09/20/18 18:59 06:59 Intake Total 1722.2 1625.0 Output Total 204 442 Balance 1518.2 1183.0 - Medications Medications: Current Medications Albuterol/Ipratropium (Duoneb 3 Mg/0.5 Mg (3 Ml) Ud) 3 ml INH RQ4 TANA Last Admin: 09/20/18 03:33 Dose: Not Given Heparin Sodium (Porcine) (Heparin) 5,000 units SC Q8 TANA Last Admin: 09/20/18 05:57 Dose: 5,000 units Piperacillin Sod/Tazobactam (Sod 3.375 gm/ Sodium Chloride) 100 mls @ 200 mls/hr IVPB Q6H [facility]; Protocol Last Admin: 09/20/18 05:57 Dose: 200 mls/hr Vancomycin HCl 1 gm/ Sodium (Chloride) 250 mls @ 166.7 mls/hr IVPB Q24H [facility]; Protocol Last Admin: 09/19/18 18:13 Dose: 166.7 mls/hr Propofol (Diprivan) 1,000 mg in 100 mls @ 2.43 mls/hr IV .Q24H PRN; Protocol PRN Reason: TITRATE PER MD ORDER Last Admin: 09/20/18 03:00 Dose: 40 mcg/kg/min, 9.72 mls/hr Norepinephrine Bitartrate 8 mg (/ Dextrose) 250 mls @ 7.5 mls/hr IV .Q24H PRN; Protocol PRN Reason: TITRATE PER MD ORDER Cisatracurium Besylate 100 mg/ (Dextrose) 250 mls @ 17.96 mls/hr IV .[id number] PRN; Protocol PRN Reason: Agitation Last Admin: 09/20/18 00:43 Dose: 3 mcg/kg/min, 17.96 mls/hr Esmolol HCl (Brevibloc) 250 mls @ 5.987 mls/hr IV .Q24H PRN; Protocol PRN Reason: PER TITRATION PROTOCOL Last Admin: 09/19/18 11:44 Dose: 5.987 mls/hr Fentanyl Citrate 2,500 mcg/ (Sodium Chloride) 250 mls @ 19.32 mls/hr IV .[id number] [facility]; Protocol Last Admin: 09/20/18 05:56 Dose: 5.01 mcg/kg/hr, 20 mls/hr Lactobacillus Acidophilus (Lactobacillus) 1 cap PO BID [facility] Last Admin: 09/19/18 18:29 Dose: 1 cap Methylprednisolone (Solu-Medrol) 40 mg IVP Q8H [facility]NA Last Admin: 09/20/18 00:48 Dose: 40 mg Montelukast Sodium (Singulair) 10 mg PO HS [facility] Last Admin: 09/19/18 22:05 Dose: 10 mg Pantoprazole Sodium (Protonix Inj) 40 mg IVP Q12H [facility] Last Admin: 09/19/18 21:03 Dose: 40 mg - Labs Labs: 09/19/18 06:12 09/19/18 06:12 PT 13.3 SECONDS (9.7-12.2) H 09/15/18 12:23 INR 1.2 09/15/18 12:23 APTT 21 SECONDS (21-34) 09/15/18 12:23 - Constitutional Appears: No Acute Distress, Chronically Ill - Eye Exam Eye Exam: absent: EOMI - ENT Exam ENT Exam: Mucous Membranes Moist - Respiratory Exam Respiratory Exam: absent: Accessory Muscle Use Additional comments: Intubated on PRVC and sedated on Nimbex Bilateral chest tubes - Cardiovascular Exam Cardiovascular Exam: REGULAR RHYTHM. absent: Bradycardia, Tachycardia - GI/Abdominal Exam GI & Abdominal Exam: Soft. absent: Distended, Firm, Guarding, Rigid, Tenderness Additional comments: on tube feeds - Neurological Exam Additional comments: sedated Assessment and Plan - Assessment and Plan (Free Text) Assessment: 68F w/ Acute PE on therapeutic Lovenox, bronchiectasis, pulmonary failure requiring mechanical ventilation with B/L pneumothoracies s/p B/L CT placement, L POD 4, Right POD 3 Plan: b/l chest tubes to suction- R pnx resolved, L small pnx persistent daily CXR monitor output vent management per ICU will cont to follow Patient currently DNR Family planning for possible terminal extubation today Patient prognosis Critical d/w Surgical Attending PGY2
[2018-09-20 06:36] LABS: ALB/GLOB RATIO 1.1 (1.0-2.1); ALBUMIN 2.7 g/dL (3.5-5.0); CALCIUM 8.6 mg/dl (8.6-10.4)
[2018-09-20 08:21] LABS: SQUAMOUS EPITHIAL 8 /hpf (0-5)
[2018-09-20 08:26] LABS: URINE BILIRUBIN NEGATIVE (NEGATIVE); URINE BLOOD SMALL (NEGATIVE); URINE CLARITY SLIGHT-CLOUDY (Clear); URINE COLOR YELLOW (YELLOW); URINE GLUCOSE (UA) NEGATIVE (Normal); URINE PROTEIN NEGATIVE (NEGATIVE)
[2018-09-20 08:27] LABS: URINE LEUKOCYTE ESTERASE NEGATIVE Leu/uL (Negative); URINE UROBILINOGEN 0.2 mg/dL (0.2-1.0)
[2018-09-20] MEDS: Lactobacillus Acidophilus 500 MU Cap PO SCH (10:12)
--- NOTE | 2018-09-20 10:16 | CP.PCM.PN ---
Subjective - Date & Time of Evaluation Date of Evaluation: 09/20/18 Time of Evaluation: 07:00 - Subjective Subjective: Nephro Progress Note for CALI Buitrago DO PGY-3 Patient seen and examined at bedside in ICU. Remains intubated and sedated, remains on 100% FiO2, now also paralyzed. Now with bilateral chest tubes set to suction. Worsening ABGs noted, increasing hypercarbia and persistent/worsening hypoxia despited maxed-out FiO2, prognosis is grim. As per primary team, patient now DNR, and family is considering terminal extubation today. Objective - Vital Signs/Intake and Output Vital Signs (last 24 hours): Temp Pulse Resp BP Pulse Ox 98.7 F 127 H 30 H 105/69 86 L 09/20/18 08:00 09/20/18 08:00 09/20/18 08:00 09/20/18 08:09 09/20/18 08:00 Intake and Output: 09/20/18 09/20/18 06:59 18:59 Intake Total 1818.4 174.0 Output Total 520 Balance 1298.4 174.0 - Medications Medications: Current Medications Albuterol/Ipratropium (Duoneb 3 Mg/0.5 Mg (3 Ml) Ud) 3 ml INH RQ4 TANA Last Admin: 09/20/18 07:38 Dose: Not Given Heparin Sodium (Porcine) (Heparin) 5,000 units SC Q8 TANA Last Admin: 09/20/18 05:57 Dose: 5,000 units Piperacillin Sod/Tazobactam (Sod 3.375 gm/ Sodium Chloride) 100 mls @ 200 mls/hr IVPB Q6H [facility]; Protocol Last Admin: 09/20/18 05:57 Dose: 200 mls/hr Vancomycin HCl 1 gm/ Sodium (Chloride) 250 mls @ 166.7 mls/hr IVPB Q24H [facility]; Protocol Last Admin: 09/19/18 18:13 Dose: 166.7 mls/hr Propofol (Diprivan) 1,000 mg in 100 mls @ 2.43 mls/hr IV .Q24H PRN; Protocol PRN Reason: TITRATE PER MD ORDER Last Admin: 09/20/18 03:00 Dose: 40 mcg/kg/min, 9.72 mls/hr Norepinephrine Bitartrate 8 mg (/ Dextrose) 250 mls @ 7.5 mls/hr IV .Q24H PRN; Protocol PRN Reason: TITRATE PER MD ORDER Cisatracurium Besylate 100 mg/ (Dextrose) 250 mls @ 17.96 mls/hr IV .[id number] PRN; Protocol PRN Reason: Agitation Last Titration: 09/20/18 01:00 Dose: 2.53 mcg/kg/min, 15.2 mls/hr Esmolol HCl (Brevibloc) 250 mls @ 5.987 mls/hr IV .Q24H PRN; Protocol PRN Reason: PER TITRATION PROTOCOL Last Admin: 09/19/18 11:44 Dose: 5.987 mls/hr Fentanyl Citrate 2,500 mcg/ (Sodium Chloride) 250 mls @ 19.32 mls/hr IV .[id number] [facility]; Protocol Last Admin: 09/20/18 05:56 Dose: 5.01 mcg/kg/hr, 20 mls/hr Lactobacillus Acidophilus (Lactobacillus) 1 cap PO BID [facility] Last Admin: 09/19/18 18:29 Dose: 1 cap Methylprednisolone (Solu-Medrol) 40 mg IVP Q8H [facility] Last Admin: 09/20/18 00:48 Dose: 40 mg Montelukast Sodium (Singulair) 10 mg PO HS [facility] Last Admin: 09/19/18 22:05 Dose: 10 mg Pantoprazole Sodium (Protonix Inj) 40 mg IVP Q12H [facility] Last Admin: 09/19/18 21:03 Dose: 40 mg - Labs Labs: 09/20/18 06:13 09/20/18 06:13 PT 13.3 SECONDS (9.7-12.2) H 09/15/18 12:23 INR 1.2 09/15/18 12:23 APTT 27 SECONDS (21-34) 09/20/18 06:13 - Additional Findings Additional findings: - Constitutional Appears: Chronically Ill, Frail-appearing, Intubated/sedated - Head Exam Head Exam: ATRAUMATIC, NORMAL INSPECTION, NORMOCEPHALIC - Eye Exam Eye Exam: Normal appearance. absent: Conjunctival injection, Scleral icterus - ENT Exam ENT Exam: Intubated, ETT in place with securement device - Neck Exam Neck Exam: absent: Thyromegaly - Respiratory Exam Respiratory Exam: intubated and mechanically ventilated, overbreathing the vent, remains on 100% FiO2, no wheezing or ronchi appreciated, diminished breath sounds at left lateral lung pal, bilateral chest tubes in place on suction - Cardiovascular Exam Cardiovascular Exam: Tachycardia, REGULAR RHYTHM, +S1, +S2. absent: Irregular Rhythm, JVD - GI/Abdominal Exam GI & Abdominal Exam: Soft, Minimal bowel sounds - Extremities Exam Extremities Exam: absent: Pedal Edema, Tenderness - Neurological Exam Sedated on propofol, no spontaneous movements appreciated - Psychiatric Exam Unable to assess, sedated on propofol - Skin Skin Exam: Dry, Intact, Normal Color, Warm Assessment and Plan - Assessment and Plan (Free Text) Assessment: This is a 68 yo F with hx of chronic bronchietasis, HFrEF, and previously noted PTX who presented for diffuse epigastric pain, and was found to have hyponatremia of 119. Nephro consulted for management of the hyponatremia. Patient now intubated with bilateral chest tubes, still hypoxic and hypercarbic on 100% FiO2, prognosis is grim. Plan: 1) Combined hypoxic and hypercarbic respiratory failure at 100% FiO2 on vent 2) Bilateral PTX s/p bilateral chest tubes - improving 3) Chronic bronchiectasis, possibly cystic bronchiectasis 4) HFrEF 5) Hyponatremia - resolved 6) Diffuse fibrotic lung disease of unclear etiology -Urine studies on admission suggestive of hypovolemic hyponatremia, corrected with initial fluid repletion then fluid restriction with gentle diuresis -Na 147 today -intubated with worsening respiratory status despite 100% FiO2, worsening hypercarbia and persistent hypoxia -Now DNR, pending possible terminal extubation today -prognosis is grim Case seen and examined with attending, Dr. Lindsay. Further recs as per attending.
--- NOTE | 2018-09-20 10:29 | RAD ---
Chest x-ray single frontal view HISTORY: Chest tubes. COMPARISON: 09/19/2018 Findings: Lines and tubes in stable position. No gross pneumothoraces. Worsening now moderate left pleural effusion. Dense bilateral pleural parenchymal opacities in both lung pal superimposed on chronic fibrotic changes. Heart is obscured. Degenerative changes in the spine. Impression: Lines and tubes in stable position. No gross pneumothoraces. Worsening now moderate left pleural effusion. Dense bilateral pleural parenchymal opacities in both lung pal superimposed on chronic fibrotic changes. Heart is obscured.
--- NOTE | 2018-09-20 12:22 | CP.PCM.PN ---
Subjective - Date & Time of Evaluation Date of Evaluation: 09/20/18 Time of Evaluation: 12:00 - Subjective Subjective: Medical Attending Note: Patient seen and examined at bedside. Patient is intubated, on ventilator, on sedation. unable to ROS secondary to clinical condition. Patient's son, Pavel Mistry present at bedside, requesting for withd pat of care and for terminal extubation, reports he has spoken with both his brothers as well. He reports he does not want his mother to suffer, understands that the lungs and heart are poor, understands she has fibrotic lungs and weakened heart (heart failure). Form for withdrawal care filled with nurse, kam Quiles witnessing at bedside; would like comfort measures and preserve dignity and understands mom will like . I have offered litigation services manager services as well but he declines at this time. He reports he would like this to be done as soon as possible. Objective - Vital Signs/Intake and Output Vital Signs (last 24 hours): Temp Pulse Resp BP Pulse Ox 98.7 F 125 H 23 102/65 87 L 09/20/18 08:00 09/20/18 11:09 09/20/18 11:09 09/20/18 11:00 09/20/18 11:09 Intake and Output: 09/20/18 09/20/18 06:59 18:59 Intake Total 1818.4 671.5 Output Total 520 Balance 1298.4 671.5 - Medications Medications: Current Medications Albuterol/Ipratropium (Duoneb 3 Mg/0.5 Mg (3 Ml) Ud) 3 ml INH RQ4 TANA Last Admin: 09/20/18 12:15 Dose: Not Given Heparin Sodium (Porcine) (Heparin) 5,000 units SC Q8 TANA Last Admin: 09/20/18 05:57 Dose: 5,000 units Piperacillin Sod/Tazobactam (Sod 3.375 gm/ Sodium Chloride) 100 mls @ 200 mls/hr IVPB Q6H [facility]; Protocol Last Admin: 09/20/18 11:29 Dose: 200 mls/hr Vancomycin HCl 1 gm/ Sodium (Chloride) 250 mls @ 166.7 mls/hr IVPB Q24H [facility]; Protocol Last Admin: 09/19/18 18:13 Dose: 166.7 mls/hr Propofol (Diprivan) 1,000 mg in 100 mls @ 2.43 mls/hr IV .Q24H PRN; Protocol PRN Reason: TITRATE PER MD ORDER Last Admin: 09/20/18 10:58 Dose: 40 mcg/kg/min, 9.72 mls/hr Norepinephrine Bitartrate 8 mg (/ Dextrose) 250 mls @ 7.5 mls/hr IV .Q24H PRN; Protocol PRN Reason: TITRATE PER MD ORDER Cisatracurium Besylate 100 mg/ (Dextrose) 250 mls @ 17.96 mls/hr IV .[id number] PRN; Protocol PRN Reason: Agitation Last Titration: 09/20/18 11:06 Dose: 0 mcg/kg/min, 0 mls/hr Esmolol HCl (Brevibloc) 250 mls @ 5.987 mls/hr IV .Q24H PRN; Protocol PRN Reason: PER TITRATION PROTOCOL Last Admin: 09/19/18 11:44 Dose: 5.987 mls/hr Fentanyl Citrate 2,500 mcg/ (Sodium Chloride) 250 mls @ 19.32 mls/hr IV .[id number] [facility]; Protocol Last Admin: 09/20/18 11:04 Dose: Not Given Lactobacillus Acidophilus (Lactobacillus) 1 cap PO BID [facility] Last Admin: 09/20/18 10:12 Dose: 1 cap Methylprednisolone (Solu-Medrol) 40 mg IVP Q8H [facility] Last Admin: 09/20/18 10:15 Dose: 40 mg Montelukast Sodium (Singulair) 10 mg PO HS [facility] Last Admin: 09/19/18 22:05 Dose: 10 mg Pantoprazole Sodium (Protonix Inj) 40 mg IVP Q12H [facility] Last Admin: 09/20/18 10:00 Dose: 40 mg - Labs Labs: 09/20/18 06:13 09/20/18 06:13 PT 13.3 SECONDS (9.7-12.2) H 09/15/18 12:23 INR 1.2 09/15/18 12:23 APTT 27 SECONDS (21-34) 09/20/18 06:13 - Constitutional Appears: Unkempt, Confused, Chronically Ill - Head Exam Head Exam: NORMAL INSPECTION - ENT Exam ENT Exam: Mucous Membranes Dry - Respiratory Exam Respiratory Exam: Decreased Breath Sounds Additional comments: on vent with chest tubes - Cardiovascular Exam Cardiovascular Exam: Tachycardia, +S1, +S2 - GI/Abdominal Exam GI & Abdominal Exam: Soft, Normal Bowel Sounds - Extremities Exam Extremities Exam: absent: Full ROM, Pedal Edema, Tenderness - Neurological Exam Additional comments: sedated Assessment and Plan (1) Acute respiratory failure Status: Acute (2) Pulmonary fibrosis Status: Acute (3) Systolic heart failure Status: Acute (4) Pneumonia Status: Acute (5) Pneumothorax Status: Acute (6) Prophylactic measure Status: Acute Attending/Attestation - Attestation I have personally seen and examined this patient.: Yes I have fully participated in the care of the patient.: Yes I have reviewed all pertinent clinical information, including history, physical exam and plan: Yes Notes (Text): 1. Acute Respiratory Failure Pulmonary Fibrosis Cystic Bronchiectasis, chronic Healthcare associated pneumonia Fibrosis Pneumothorax Pulmonary Embolus Assessment/Plan * Pulmonology, Dr. Bashir, consulted help appreciated * CT chest (08/22/18): areas of dense consolidation/atelectasis in the left lung base; progressed 03/01/16. Extensive cystic changes seen throughout the left lung and less so the right upper lobe possibly representing cystic bronchiectasis. Left sided effusion possibly with some loculated components. mucous plugging changes or compressive effects on the proximal branches of the left upper and lower lobe of bronchi. mild fatty hepatic infiltration. gastric wall thickening in part of incomplete distension. markedly distended urinary bladder, rule out urinary retention * ESRL 113, CRP: 193.80, pending BAUTISTA * Patient had refused PA chest x-ray 09/15. Patient refused CT chest repeat 09/16. Rapid response called September 15, 2018 for acute respiratory distress, tachycardia as well as patient did not look well. Patient noted accessory muscle use. Transferred to the ICU. Intubated. On Ventilator. * Bronchoscopy (bedside)with Dr. Bashir 09/16/18: F/U BAL results from the Right Medial Bronchus * Chest X Ray 09/16/18: diffuse pathcy bilateral infiltrates, left sided pneumothorax and small left sided effusion (hydropneumothorax) less well seen on this exam as compared to high resolution CT Scan and presumably has reduced in size. * Chest X Ray 09/17/18: It appears that there is a Right Upper Lobe Pneumothorax that has developed since 09/16/18. Right Chest Tube placed 09/17/18 as a result * Chest X Ray 09/18/18: shows worsening left pneumothorax and persistent right pneumonthorax * Sputum Fungus Culture 09/15/18 is negative * Mycobacterium Culture Preliminary 09/15/18: NO AFB seen * F/U Sputum Culture 09/16/18 and 09/18/18 * On Vancomycin and Zosyn. * Blood Culture 09/10/18 finalized at 5 days as negative. * Blood Culture 09/16/18: negative to date * F/U pending Sputum Cultures mentioned above. * Repeat Catheterized Urine Culture 09/16/18: NO growth * Procalcitonin: 1.32 and normalized on repeat * S/P Left Mid Axillary Chest Tube Placement 09/16/18 * S/P Right Chest Tube Placement 09/17/18 * Patient was placed on therapeutic lovenox for treatment of PE however had an H/H drop required blood transfusion noted on 09/17/18. * Recent admission labs (08/22-09/03) * ANCA screen is negative * Proteinase 3 <1.0 * myeloperoxidase <1.0 * b DGlucan negative * indeterminate quantiferon * Aspergillus flavus negative * Aspergillus fumigatus negative * Aspergillus niger negative * HIV negative * influenza negative * Hepatitis negative * Rheumatoid factor IgM elevated at 80 * Blood culture (08/22/18): no growth after 5 days X2 * Myobacterial culture (08/23/18): negative for AFB. prelim * Myobacterial culture (08/25/18): negative for AFB. prelim * Myobacterial culture (08/28/18): negative for AFB. prelim * Mycobacterium complex PCR negative * Hisplasmosis AB negative, MARY level normal * Solumedrol 40mg IV Q12H * On ventilator: management per ICU * Sedated, Fenantyl IV,Cisatorinum * Patient is high risk given lung and cardiac status; poor prognosis Hyponatremia (resolved) * Nephro Consulted: Dr. Angélica malik appreciated * Improved with PO fluid restriction, should continue the same with goal <1.5L per day; awaiting repeat urine osm; * normalized Abdominal pain, resolved * Likely due to potassium chloride medications pt was discharged with * Abdominal CT with IV contrast prelim reading shows ileus vs developing enteritis * Leukocytosis likely due to steroid treatment? * Protonix 40 mg IV Q12H * Given Cipro 400 mg IVPB x 1, Flagyl 500 mg IVPB x 1, Pepcid 20 mg PO, Maalox 30 mL PO in the ED Heart Failure with Reduced Ejection Fraction, chronic * Echocardiogram (08/27/18) left ventricular systolic function is severely impaired. ejection fraction is 25-30%. atrial septum aneurysmal. possible asd? no aortic regurgitation is present. mitral regurgitation is mild to moderate. mild tricuspid regurgitation. mild pulmonary hypertension. * Cardiac cath showed nonischemic cardiomyopathy. Dr. Pedraza, cardiology, evaluated the pt on last admission and recommended medical HFrEF management rather than lifevest/aicd placement. * Carvedilol 3.125 mg PO BID on hold considering need for Norepinephrine for low blood pressure * Losartan 25 mg PO on hold, Aldactone 12.5 mg PO once daily on hold (given borderline potassium level) * Lasix 20mg po daily on hold considering need for Norepinephrine for low blood pressure Leukocytosis * Influenza negative * Zosyn 3.375g IVPB Q6H (active since 09/11/18) * Vancomycin 1 gram IVPB Q24h (active since 09/11/18) * Solumedrol 40mg IVPB Q8H * On Vancomycin and Zosyn. * Blood Culture 09/10/18 finalized at 5 days as negative. * Blood Culture 09/16/18: negative to date * F/U pending Sputum Cultures mentioned above. * Repeat Catheterized Urine Culture 09/16/18: NO growth * Procalcitonin: 1.32 and normalized on repeat Cachexia * 30lb weight loss in 2 months * Day Habilitation Specialist referral * Ensure Compact TID (660 kcals, 27 gm protein) PPx * DVT ppx: SCDs * GI: Protonix 40 mg IV Q12H and Lactobacillus 2x/day * Diet: PulmCare at 25 ml/hr via oral gastric tube * Skin: AloVesta for 1 cm Circular Stage II Right Buttock Ulcer and repositioning of patient Q2H * Aspiration precautions due to increased mucus production * On therapeutic lovenox for PE seen on 09/15/18 CT; patient had refused dvt ppx heparin during hospitalization; therapuetic lovenox d/c following H/H on 09/17/18 requiring blood transfusion * Full code * Palliative care on board * Intubated 4/11/19 * Poor prognosis-->discussed with patient's son Edd at bedside who speak to his brothers as well regarding her need of ventilator, the poor quality of her lungs and heart, and the possibility that she may on 09/19/18 * patient is DNR. Poor Prognosis. I spoke with son, Pavel Mistry, on 09/20/18 on behalf of his brothers requesting for terminal extubation and comfort measures. Understands given the prognosis, both quality of lungs and heart that she will unlikely survive and notes she does not want her to suffer. No longer wants vent, feedings, blood products, iv abx etc. Agrees with comfort measures, pain management. Withdrawal of care form completed with son and nurse witnessing at bedside. Form is in the chart.
[2018-09-20 12:37] VITALS: PULSE 123
[2018-09-20 12:38] VITALS: TEMP 99.1
--- NOTE | 2018-09-20 12:42 | CP.CCUPN ---
<Jimmy Nassar - Last Filed: 09/20/18 12:39> CCU Subjective - Physician Review Subjective (Free Text): 09/19/18 14:10 PGY-1 Critical Care Progress Note for Dr. Bashir Patient seen and evaluated at bedside. No acute events overnight. Patient's son Pavel would like patient to be terminally extubated- change in code status documented in chart. We will plan to extubate this afternoon. ROS unable to be obtained. CCU Objective - Vital Signs / Intake & Output Vital Signs (Last 4 hours): Vital Signs Temp Pulse Resp BP Pulse Ox 09/20/18 12:09 123 H 16 88 L 09/20/18 12:00 99.1 F 128 H 30 H 107/65 90 L 09/20/18 11:09 125 H 23 87 L 09/20/18 11:00 125 H 30 H 102/65 87 L 09/20/18 10:09 128 H 30 H 86 L 09/20/18 10:00 127 H 30 H 102/67 86 L 09/20/18 09:00 126 H 30 H 103/69 87 L Intake and Output (Last 8hrs): Intake & Output 09/19/18 09/20/18 09/20/18 22:59 06:59 14:59 Intake Total 1498.6 1203.6 671.5 Output Total 191 358 Balance 1307.6 845.6 671.5 Weight 88 lb Intake: IV 350 330 282 Intake, IV Amount 813.6 513.6 164.5 Left Distal Port Internal 77.6 77.6 48.5 Jugular Left Medial Port Internal 48.8 48.8 30.5 Jugular Left Proximal Port 165.6 165.6 70.3 Internal Jugular Left Proximal Port 121.6 121.6 15.2 Internal Jugular Y-site Right Forearm 400 100 Tube Feeding 335 360 225 Output: Chest Tube Drainage 78 Left Mid-Axillary Chest 56 Right Upper Mid-Axillary 22 Chest Urine 191 280 2-way Urethral 191 280 Other: # Bowel Movements 0 0 - Physical Exam Head: Positive for: Atraumatic, Normocephalic Pupils: Positive for: PERRL Extroacular Muscles: Positive for: EOMI Respiratory/Chest: Positive for: Clear to Auscultation, Other (intubated, on vent) Cardiovascular: Positive for: Normal S1, S2, Peripheal Pulses Present, Tachycardic (120s on monitor) Neurological: Positive for: Other (sedated). Negative for: GCS=15 Skin: Positive for: Dry, Normal Color - Medications Active Medications: Active Medications Generic Name Dose Route Start Last Admin Trade Name Freq PRN Reason Stop Dose Admin Albuterol/Ipratropium 3 ml 09/12/18 12:00 09/20/18 12:15 Duoneb 3 Mg/0.5 Mg (3 Ml) Ud INH Not Given RQ4 TANA Heparin Sodium (Porcine) 5,000 units 09/19/18 14:00 09/20/18 05:57 Heparin SC 5,000 units Q8 TANA Administration Piperacillin Sod/Tazobactam 100 mls @ 200 mls/hr 09/11/18 06:30 09/20/18 11:29 Sod 3.375 gm/ Sodium Chloride IVPB 200 mls/hr Q6H TANA Administration Protocol Vancomycin HCl 1 gm/ Sodium 250 mls @ 166.7 mls/hr 09/11/18 18:15 09/19/18 18:13 Chloride IVPB 166.7 mls/hr Q24H TANA Administration Protocol Propofol 1,000 mg in 100 mls @ 2.43 mls/hr 09/17/18 00:11 09/20/18 10:58 Diprivan IV 40 mcg/kg/min .Q24H PRN 9.72 mls/hr TITRATE PER MD ORDER Administration Protocol 10 MCG/KG/MIN Norepinephrine Bitartrate 8 mg 250 mls @ 7.5 mls/hr 09/17/18 17:00 / Dextrose IV .Q24H PRN TITRATE PER MD ORDER Protocol 4 MCG/MIN Cisatracurium Besylate 100 mg/ 250 mls @ 17.96 mls/hr 09/19/18 10:00 09/20/18 11:06 Dextrose IV 0 mcg/kg/min .[id number] PRN 0 mls/hr Agitation Titration Protocol 3 MCG/KG/MIN Esmolol HCl 250 mls @ 5.987 mls/hr 09/19/18 10:45 09/19/18 11:44 Brevibloc IV 5.987 mls/hr .Q24H PRN Administration PER TITRATION PROTOCOL Protocol 25 MCG/KG/MIN Fentanyl Citrate 2,500 mcg/ 250 mls @ 19.32 mls/hr 09/19/18 19:33 09/20/18 11:04 Sodium Chloride IV Not Given .[id number] TANA Protocol 4.84 MCG/KG/HR Lactobacillus Acidophilus 1 cap 09/15/18 18:00 09/20/18 10:12 Lactobacillus PO 1 cap BID TANA Administration Methylprednisolone 40 mg 09/12/18 09:45 09/20/18 10:15 Solu-Medrol IVP 40 mg Q8H TANA Administration Montelukast Sodium 10 mg 09/10/18 22:00 09/19/18 22:05 Singulair PO 10 mg HS TANA Administration Pantoprazole Sodium 40 mg 09/17/18 08:30 09/20/18 10:00 Protonix Inj IVP 40 mg Q12H TANA Administration - Patient Studies Lab Studies: Microbiology Studies 09/18/18 05:23 Gram Stain - Final Trachasp Sputum Culture - Final NORMAL ORAL DARON 09/16/18 18:30 Bronchial Culture - Final Bronchial Washings No growth. 09/16/18 18:30 Fungal Culture - Preliminary Lung Lab Studies 09/20/18 09/20/18 09/20/18 Range/Units 08:05 08:05 08:05 WBC (4.8-10.8) K/uL RBC (3.80-5.20) Mil/uL Hgb (11.0-16.0) g/dL Hct (34.0-47.0) % MCV (81.0-99.0) fL MCH (27.0-31.0) pg MCHC (33.0-37.0) g/dL RDW (11.5-14.5) % Plt Count (130-400) K/uL MPV (7.2-11.7) fL APTT (21-34) SECONDS Puncture Site pCO2 (35-45) mm/Hg pO2 (80-100) mm/Hg HCO3 (21-28) mmol/L ABG pH (7.35-7.45) ABG Total CO2 (22-28) mmol/L ABG O2 Saturation (95-98) % ABG Base Excess (-2.0-3.0) mmol/L ABG Hemoglobin (11.7-17.4) g/dL ABG Carboxyhemoglobin (0.5-1.5) % POC ABG HHb (Measured) (0.0-5.0) % ABG Methemoglobin (0.0-3.0) % Jose Test A-a O2 Difference mm/Hg Respiratory Index Hgb O2 Saturation (95.0-98.0) % Vent Mode Mechanical Rate FiO2 % Tidal Volume PEEP Crit Value Called To Crit Value Called By Crit Value Read Back Blood Gas Notified Time Sodium (132-148) mmol/L Potassium (3.6-5.2) mmol/L Chloride (98-107) mmol/L Carbon Dioxide (22-30) mmol/L Anion Gap (10-20) BUN (7-17) mg/dL Creatinine (0.7-1.2) mg/dL Est GFR ( Amer) Est GFR (Non-Af Amer) POC Glucose (mg/dL) (65-110) mg/dL Random Glucose (65-105) mg/dL Calcium (8.6-10.4) mg/dl Phosphorus (2.5-4.5) mg/dL Magnesium (1.6-2.3) mg/dL Total Bilirubin (0.2-1.3) mg/dL AST (14-36) U/L ALT (9-52) U/L Alkaline Phosphatase (38-126) U/L Total Protein (6.3-8.3) g/dL Albumin (3.5-5.0) g/dL Globulin (2.2-3.9) gm/dL Albumin/Globulin Ratio (1.0-2.1) Urine Color Yellow (YELLOW) Urine Clarity Slight-cloudy (Clear) Urine pH 6.0 (5.0-8.0) Ur Specific [place] 1.025 (1.003-1.030) Urine Protein Negative (NEGATIVE) mg/dL Urine Glucose (UA) Negative (Normal) mg/dL Urine Ketones Negative (NEGATIVE) mg/dL Urine Blood Small (NEGATIVE) Urine Nitrate Negative (NEGATIVE) Urine Bilirubin Negative (NEGATIVE) Urine Urobilinogen 0.2 (0.2-1.0) mg/dL Ur Leukocyte Esterase Negative (Negative) Remy/uL Urine RBC (Auto) 14 H (0-3) /hpf Ur Squamous Epith Cells 8 H (0-5) /hpf Urine Yeast (Budding) Many H (NEGATIVE) /hpf Ur Random Creatinine 46.0 mg/dL Ur Random Sodium 44 mmol/L Random Vancomycin 15.6 ug/mL 09/20/18 09/20/18 09/20/18 Range/Units 06:13 06:13 06:13 WBC 15.8 H (4.8-10.8) K/uL RBC 3.96 (3.80-5.20) Mil/uL Hgb 10.6 L (11.0-16.0) g/dL Hct 33.8 L (34.0-47.0) % MCV 85.3 D (81.0-99.0) fL MCH 26.9 L (27.0-31.0) pg MCHC 31.5 L (33.0-37.0) g/dL RDW 18.0 H (11.5-14.5) % Plt Count 234 (130-400) K/uL MPV 10.5 (7.2-11.7) fL APTT 27 (21-34) SECONDS Puncture Site pCO2 (35-45) mm/Hg pO2 (80-100) mm/Hg HCO3 (21-28) mmol/L ABG pH (7.35-7.45) ABG Total CO2 (22-28) mmol/L ABG O2 Saturation (95-98) % ABG Base Excess (-2.0-3.0) mmol/L ABG Hemoglobin (11.7-17.4) g/dL ABG Carboxyhemoglobin (0.5-1.5) % POC ABG HHb (Measured) (0.0-5.0) % ABG Methemoglobin (0.0-3.0) % Jose Test A-a O2 Difference mm/Hg Respiratory Index Hgb O2 Saturation (95.0-98.0) % Vent Mode Mechanical Rate FiO2 % Tidal Volume PEEP Crit Value Called To Crit Value Called By Crit Value Read Back Blood Gas Notified Time Sodium 147 (132-148) mmol/L Potassium 5.2 (3.6-5.2) mmol/L Chloride 110 H (98-107) mmol/L Carbon Dioxide 37 H (22-30) mmol/L Anion Gap 5 L (10-20) BUN 53 H (7-17) mg/dL Creatinine 1.5 H (0.7-1.2) mg/dL Est GFR ( Amer) 42 Est GFR (Non-Af Amer) 35 POC Glucose (mg/dL) (65-110) mg/dL Random Glucose 236 H D (65-105) mg/dL Calcium 8.6 (8.6-10.4) mg/dl Phosphorus 3.8 (2.5-4.5) mg/dL Magnesium 2.8 H (1.6-2.3) mg/dL Total Bilirubin 0.2 (0.2-1.3) mg/dL AST 90 H D (14-36) U/L ALT 66 H D (9-52) U/L Alkaline Phosphatase 146 H D (38-126) U/L Total Protein 5.2 L (6.3-8.3) g/dL Albumin 2.7 L (3.5-5.0) g/dL Globulin 2.5 (2.2-3.9) gm/dL Albumin/Globulin Ratio 1.1 (1.0-2.1) Urine Color (YELLOW) Urine Clarity (Clear) Urine pH (5.0-8.0) Ur Specific [place] (1.003-1.030) Urine Protein (NEGATIVE) mg/dL Urine Glucose (UA) (Normal) mg/dL Urine Ketones (NEGATIVE) mg/dL Urine Blood (NEGATIVE) Urine Nitrate (NEGATIVE) Urine Bilirubin (NEGATIVE) Urine Urobilinogen (0.2-1.0) mg/dL Ur Leukocyte Esterase (Negative) Remy/uL Urine RBC (Auto) (0-3) /hpf Ur Squamous Epith Cells (0-5) /hpf Urine Yeast (Budding) (NEGATIVE) /hpf Ur Random Creatinine mg/dL Ur Random Sodium mmol/L Random Vancomycin ug/mL 09/20/18 09/20/18 09/19/18 Range/Units 05:19 00:12 18:19 WBC (4.8-10.8) K/uL RBC (3.80-5.20) Mil/uL Hgb (11.0-16.0) g/dL Hct (34.0-47.0) % MCV (81.0-99.0) fL MCH (27.0-31.0) pg MCHC (33.0-37.0) g/dL RDW (11.5-14.5) % Plt Count (130-400) K/uL MPV (7.2-11.7) fL APTT (21-34) SECONDS Puncture Site Rb pCO2 99 H* (35-45) mm/Hg pO2 45 L (80-100) mm/Hg HCO3 29.4 H (21-28) mmol/L ABG pH 7.18 L* (7.35-7.45) ABG Total CO2 40.0 H (22-28) mmol/L ABG O2 Saturation 83.7 L (95-98) % ABG Base Excess 6.2 H (-2.0-3.0) mmol/L ABG Hemoglobin 10.4 L (11.7-17.4) g/dL ABG Carboxyhemoglobin 2.5 H (0.5-1.5) % POC ABG HHb (Measured) 15.8 H (0.0-5.0) % ABG Methemoglobin 0.8 (0.0-3.0) % Jose Test Na A-a O2 Difference 544.0 mm/Hg Respiratory Index 12.1 Hgb O2 Saturation 80.9 L (95.0-98.0) % Vent Mode Prvc Mechanical Rate 30 FiO2 100.0 % Tidal Volume 300 PEEP 5 Crit Value Called To Nereyda rn Crit Value Called By Hollie emergency management consultant Crit Value Read Back Y Blood Gas Notified Time 548 Sodium (132-148) mmol/L Potassium (3.6-5.2) mmol/L Chloride (98-107) mmol/L Carbon Dioxide (22-30) mmol/L Anion Gap (10-20) BUN (7-17) mg/dL Creatinine (0.7-1.2) mg/dL Est GFR ( Amer) Est GFR (Non-Af Amer) POC Glucose (mg/dL) 281 H 244 H (65-110) mg/dL Random Glucose (65-105) mg/dL Calcium (8.6-10.4) mg/dl Phosphorus (2.5-4.5) mg/dL Magnesium (1.6-2.3) mg/dL Total Bilirubin (0.2-1.3) mg/dL AST (14-36) U/L ALT (9-52) U/L Alkaline Phosphatase (38-126) U/L Total Protein (6.3-8.3) g/dL Albumin (3.5-5.0) g/dL Globulin (2.2-3.9) gm/dL Albumin/Globulin Ratio (1.0-2.1) Urine Color (YELLOW) Urine Clarity (Clear) Urine pH (5.0-8.0) Ur Specific [place] (1.003-1.030) Urine Protein (NEGATIVE) mg/dL Urine Glucose (UA) (Normal) mg/dL Urine Ketones (NEGATIVE) mg/dL Urine Blood (NEGATIVE) Urine Nitrate (NEGATIVE) Urine Bilirubin (NEGATIVE) Urine Urobilinogen (0.2-1.0) mg/dL Ur Leukocyte Esterase (Negative) Remy/uL Urine RBC (Auto) (0-3) /hpf Ur Squamous Epith Cells (0-5) /hpf Urine Yeast (Budding) (NEGATIVE) /hpf Ur Random Creatinine mg/dL Ur Random Sodium mmol/L Random Vancomycin ug/mL 09/19/18 09/19/18 09/18/18 Range/Units 16:05 11:21 23:36 WBC (4.8-10.8) K/uL RBC (3.80-5.20) Mil/uL Hgb (11.0-16.0) g/dL Hct (34.0-47.0) % MCV (81.0-99.0) fL MCH (27.0-31.0) pg MCHC (33.0-37.0) g/dL RDW (11.5-14.5) % Plt Count (130-400) K/uL MPV (7.2-11.7) fL APTT (21-34) SECONDS Puncture Site Rba pCO2 100 H* (35-45) mm/Hg pO2 57 L (80-100) mm/Hg HCO3 29.2 H (21-28) mmol/L ABG pH 7.17 L* (7.35-7.45) ABG Total CO2 39.6 H (22-28) mmol/L ABG O2 Saturation 90.4 L (95-98) % ABG Base Excess 5.7 H (-2.0-3.0) mmol/L ABG Hemoglobin 10.1 L (11.7-17.4) g/dL ABG Carboxyhemoglobin 2.5 H (0.5-1.5) % POC ABG HHb (Measured) 9.3 H (0.0-5.0) % ABG Methemoglobin 0.8 (0.0-3.0) % Jose Test Na A-a O2 Difference 531.0 mm/Hg Respiratory Index 9.3 Hgb O2 Saturation 87.4 L (95.0-98.0) % Vent Mode Prvc Mechanical Rate 30 FiO2 100.0 % Tidal Volume 300 PEEP 5 Crit Value Called To Wilmar paul Crit Value Called By Becky Crit Value Read Back Y Blood Gas Notified Time 1609 Sodium (132-148) mmol/L Potassium (3.6-5.2) mmol/L Chloride (98-107) mmol/L Carbon Dioxide (22-30) mmol/L Anion Gap (10-20) BUN (7-17) mg/dL Creatinine (0.7-1.2) mg/dL Est GFR ( Amer) Est GFR (Non-Af Amer) POC Glucose (mg/dL) 277 H 232 H (65-110) mg/dL Random Glucose (65-105) mg/dL Calcium (8.6-10.4) mg/dl Phosphorus (2.5-4.5) mg/dL Magnesium (1.6-2.3) mg/dL Total Bilirubin (0.2-1.3) mg/dL AST (14-36) U/L ALT (9-52) U/L Alkaline Phosphatase (38-126) U/L Total Protein (6.3-8.3) g/dL Albumin (3.5-5.0) g/dL Globulin (2.2-3.9) gm/dL Albumin/Globulin Ratio (1.0-2.1) Urine Color (YELLOW) Urine Clarity (Clear) Urine pH (5.0-8.0) Ur Specific [place] (1.003-1.030) Urine Protein (NEGATIVE) mg/dL Urine Glucose (UA) (Normal) mg/dL Urine Ketones (NEGATIVE) mg/dL Urine Blood (NEGATIVE) Urine Nitrate (NEGATIVE) Urine Bilirubin (NEGATIVE) Urine Urobilinogen (0.2-1.0) mg/dL Ur Leukocyte Esterase (Negative) Remy/uL Urine RBC (Auto) (0-3) /hpf Ur Squamous Epith Cells (0-5) /hpf Urine Yeast (Budding) (NEGATIVE) /hpf Ur Random Creatinine mg/dL Ur Random Sodium mmol/L Random Vancomycin ug/mL 09/18/18 09/18/18 09/18/18 Range/Units 17:37 11:38 04:46 WBC (4.8-10.8) K/uL RBC (3.80-5.20) Mil/uL Hgb (11.0-16.0) g/dL Hct (34.0-47.0) % MCV (81.0-99.0) fL MCH (27.0-31.0) pg MCHC (33.0-37.0) g/dL RDW (11.5-14.5) % Plt Count (130-400) K/uL MPV (7.2-11.7) fL APTT (21-34) SECONDS Puncture Site pCO2 (35-45) mm/Hg pO2 (80-100) mm/Hg HCO3 (21-28) mmol/L ABG pH (7.35-7.45) ABG Total CO2 (22-28) mmol/L ABG O2 Saturation (95-98) % ABG Base Excess (-2.0-3.0) mmol/L ABG Hemoglobin (11.7-17.4) g/dL ABG Carboxyhemoglobin (0.5-1.5) % POC ABG HHb (Measured) (0.0-5.0) % ABG Methemoglobin (0.0-3.0) % Jose Test A-a O2 Difference mm/Hg Respiratory Index Hgb O2 Saturation (95.0-98.0) % Vent Mode Mechanical Rate FiO2 % Tidal Volume PEEP Crit Value Called To Crit Value Called By Crit Value Read Back Blood Gas Notified Time Sodium (132-148) mmol/L Potassium (3.6-5.2) mmol/L Chloride (98-107) mmol/L Carbon Dioxide (22-30) mmol/L Anion Gap (10-20) BUN (7-17) mg/dL Creatinine (0.7-1.2) mg/dL Est GFR ( Amer) Est GFR (Non-Af Amer) POC Glucose (mg/dL) 207 H 171 H 186 H (65-110) mg/dL Random Glucose (65-105) mg/dL Calcium (8.6-10.4) mg/dl Phosphorus (2.5-4.5) mg/dL Magnesium (1.6-2.3) mg/dL Total Bilirubin (0.2-1.3) mg/dL AST (14-36) U/L ALT (9-52) U/L Alkaline Phosphatase (38-126) U/L Total Protein (6.3-8.3) g/dL Albumin (3.5-5.0) g/dL Globulin (2.2-3.9) gm/dL Albumin/Globulin Ratio (1.0-2.1) Urine Color (YELLOW) Urine Clarity (Clear) Urine pH (5.0-8.0) Ur Specific [place] (1.003-1.030) Urine Protein (NEGATIVE) mg/dL Urine Glucose (UA) (Normal) mg/dL Urine Ketones (NEGATIVE) mg/dL Urine Blood (NEGATIVE) Urine Nitrate (NEGATIVE) Urine Bilirubin (NEGATIVE) Urine Urobilinogen (0.2-1.0) mg/dL Ur Leukocyte Esterase (Negative) Remy/uL Urine RBC (Auto) (0-3) /hpf Ur Squamous Epith Cells (0-5) /hpf Urine Yeast (Budding) (NEGATIVE) /hpf Ur Random Creatinine mg/dL Ur Random Sodium mmol/L Random Vancomycin ug/mL 09/18/18 09/17/18 09/17/18 Range/Units 01:09 17:52 13:29 WBC (4.8-10.8) K/uL RBC (3.80-5.20) Mil/uL Hgb (11.0-16.0) g/dL Hct (34.0-47.0) % MCV (81.0-99.0) fL MCH (27.0-31.0) pg MCHC (33.0-37.0) g/dL RDW (11.5-14.5) % Plt Count (130-400) K/uL MPV (7.2-11.7) fL APTT (21-34) SECONDS Puncture Site pCO2 (35-45) mm/Hg pO2 (80-100) mm/Hg HCO3 (21-28) mmol/L ABG pH (7.35-7.45) ABG Total CO2 (22-28) mmol/L ABG O2 Saturation (95-98) % ABG Base Excess (-2.0-3.0) mmol/L ABG Hemoglobin (11.7-17.4) g/dL ABG Carboxyhemoglobin (0.5-1.5) % POC ABG HHb (Measured) (0.0-5.0) % ABG Methemoglobin (0.0-3.0) % Jose Test A-a O2 Difference mm/Hg Respiratory Index Hgb O2 Saturation (95.0-98.0) % Vent Mode Mechanical Rate FiO2 % Tidal Volume PEEP Crit Value Called To Crit Value Called By Crit Value Read Back Blood Gas Notified Time Sodium (132-148) mmol/L Potassium (3.6-5.2) mmol/L Chloride (98-107) mmol/L Carbon Dioxide (22-30) mmol/L Anion Gap (10-20) BUN (7-17) mg/dL Creatinine (0.7-1.2) mg/dL Est GFR ( Amer) Est GFR (Non-Af Amer) POC Glucose (mg/dL) 143 H 110 91 (65-110) mg/dL Random Glucose (65-105) mg/dL Calcium (8.6-10.4) mg/dl Phosphorus (2.5-4.5) mg/dL Magnesium (1.6-2.3) mg/dL Total Bilirubin (0.2-1.3) mg/dL AST (14-36) U/L ALT (9-52) U/L Alkaline Phosphatase (38-126) U/L Total Protein (6.3-8.3) g/dL Albumin (3.5-5.0) g/dL Globulin (2.2-3.9) gm/dL Albumin/Globulin Ratio (1.0-2.1) Urine Color (YELLOW) Urine Clarity (Clear) Urine pH (5.0-8.0) Ur Specific [place] (1.003-1.030) Urine Protein (NEGATIVE) mg/dL Urine Glucose (UA) (Normal) mg/dL Urine Ketones (NEGATIVE) mg/dL Urine Blood (NEGATIVE) Urine Nitrate (NEGATIVE) Urine Bilirubin (NEGATIVE) Urine Urobilinogen (0.2-1.0) mg/dL Ur Leukocyte Esterase (Negative) Remy/uL Urine RBC (Auto) (0-3) /hpf Ur Squamous Epith Cells (0-5) /hpf Urine Yeast (Budding) (NEGATIVE) /hpf Ur Random Creatinine mg/dL Ur Random Sodium mmol/L Random Vancomycin ug/mL Laboratory Results - last 24 hr 09/17/18 09/17/18 09/18/18 13:29 17:52 01:09 WBC RBC Hgb Hct MCV MCH MCHC RDW Plt Count MPV APTT Puncture Site pCO2 pO2 HCO3 ABG pH ABG Total CO2 ABG O2 Saturation ABG Base Excess ABG Hemoglobin ABG Carboxyhemoglobin POC ABG HHb (Measured) ABG Methemoglobin Jose Test A-a O2 Difference Respiratory Index Hgb O2 Saturation Vent Mode Mechanical Rate FiO2 Tidal Volume PEEP Crit Value Called To Crit Value Called By Crit Value Read Back Blood Gas Notified Time Sodium Potassium Chloride Carbon Dioxide Anion Gap BUN Creatinine Est GFR ( Amer) Est GFR (Non-Af Amer) POC Glucose (mg/dL) 91 110 143 H Random Glucose Calcium Phosphorus Magnesium Total Bilirubin AST ALT Alkaline Phosphatase Total Protein Albumin Globulin Albumin/Globulin Ratio Urine Color Urine Clarity Urine pH Ur Specific [place] Urine Protein Urine Glucose (UA) Urine Ketones Urine Blood Urine Nitrate Urine Bilirubin Urine Urobilinogen Ur Leukocyte Esterase Urine RBC (Auto) Ur Squamous Epith Cells Urine Yeast (Budding) Ur Random Creatinine Ur Random Sodium Random Vancomycin 09/18/18 09/18/18 09/18/18 04:46 11:38 17:37 WBC RBC Hgb Hct MCV MCH MCHC RDW Plt Count MPV APTT Puncture Site pCO2 pO2 HCO3 ABG pH ABG Total CO2 ABG O2 Saturation ABG Base Excess ABG Hemoglobin ABG Carboxyhemoglobin POC ABG HHb (Measured) ABG Methemoglobin Jose Test A-a O2 Difference Respiratory Index Hgb O2 Saturation Vent Mode Mechanical Rate FiO2 Tidal Volume PEEP Crit Value Called To Crit Value Called By Crit Value Read Back Blood Gas Notified Time Sodium Potassium Chloride Carbon Dioxide Anion Gap BUN Creatinine Est GFR ( Amer) Est GFR (Non-Af Amer) POC Glucose (mg/dL) 186 H 171 H 207 H Random Glucose Calcium Phosphorus Magnesium Total Bilirubin AST ALT Alkaline Phosphatase Total Protein Albumin Globulin Albumin/Globulin Ratio Urine Color Urine Clarity Urine pH Ur Specific [place] Urine Protein Urine Glucose (UA) Urine Ketones Urine Blood Urine Nitrate Urine Bilirubin Urine Urobilinogen Ur Leukocyte Esterase Urine RBC (Auto) Ur Squamous Epith Cells Urine Yeast (Budding) Ur Random Creatinine Ur Random Sodium Random Vancomycin 09/18/18 09/19/18 09/19/18 23:36 11:21 16:05 WBC RBC Hgb Hct MCV MCH MCHC RDW Plt Count MPV APTT Puncture Site Rba pCO2 100 H* pO2 57 L HCO3 29.2 H ABG pH 7.17 L* ABG Total CO2 39.6 H ABG O2 Saturation 90.4 L ABG Base Excess 5.7 H ABG Hemoglobin 10.1 L ABG Carboxyhemoglobin 2.5 H POC ABG HHb (Measured) 9.3 H ABG Methemoglobin 0.8 Jose Test Na A-a O2 Difference 531.0 Respiratory Index 9.3 Hgb O2 Saturation 87.4 L Vent Mode Prvc Mechanical Rate 30 FiO2 100.0 Tidal Volume 300 PEEP 5 Crit Value Called To Wilmar paul Crit Value Called By Becky Crit Value Read Back Y Blood Gas Notified Time 1609 Sodium Potassium Chloride Carbon Dioxide Anion Gap BUN Creatinine Est GFR ( Amer) Est GFR (Non-Af Amer) POC Glucose (mg/dL) 232 H 277 H Random Glucose Calcium Phosphorus Magnesium Total Bilirubin AST ALT Alkaline Phosphatase Total Protein Albumin Globulin Albumin/Globulin Ratio Urine Color Urine Clarity Urine pH Ur Specific [place] Urine Protein Urine Glucose (UA) Urine Ketones Urine Blood Urine Nitrate Urine Bilirubin Urine Urobilinogen Ur Leukocyte Esterase Urine RBC (Auto) Ur Squamous Epith Cells Urine Yeast (Budding) Ur Random Creatinine Ur Random Sodium Random Vancomycin 09/19/18 09/20/18 09/20/18 18:19 00:12 05:19 WBC RBC Hgb Hct MCV MCH MCHC RDW Plt Count MPV APTT Puncture Site Rb pCO2 99 H* pO2 45 L HCO3 29.4 H ABG pH 7.18 L* ABG Total CO2 40.0 H ABG O2 Saturation 83.7 L ABG Base Excess 6.2 H ABG Hemoglobin 10.4 L ABG Carboxyhemoglobin 2.5 H POC ABG HHb (Measured) 15.8 H ABG Methemoglobin 0.8 Jose Test Na A-a O2 Difference 544.0 Respiratory Index 12.1 Hgb O2 Saturation 80.9 L Vent Mode Prvc Mechanical Rate 30 FiO2 100.0 Tidal Volume 300 PEEP 5 Crit Value Called To Nereyda austin Crit Value Called By Hollie emergency management consultant Crit Value Read Back Y Blood Gas Notified Time 548 Sodium Potassium Chloride Carbon Dioxide Anion Gap BUN Creatinine Est GFR ( Amer) Est GFR (Non-Af Amer) POC Glucose (mg/dL) 244 H 281 H Random Glucose Calcium Phosphorus Magnesium Total Bilirubin AST ALT Alkaline Phosphatase Total Protein Albumin Globulin Albumin/Globulin Ratio Urine Color Urine Clarity Urine pH Ur Specific [place] Urine Protein Urine Glucose (UA) Urine Ketones Urine Blood Urine Nitrate Urine Bilirubin Urine Urobilinogen Ur Leukocyte Esterase Urine RBC (Auto) Ur Squamous Epith Cells Urine Yeast (Budding) Ur Random Creatinine Ur Random Sodium Random Vancomycin 09/20/18 09/20/18 09/20/18 06:13 06:13 06:13 WBC 15.8 H RBC 3.96 Hgb 10.6 L Hct 33.8 L MCV 85.3 D MCH 26.9 L MCHC 31.5 L RDW 18.0 H Plt Count 234 MPV 10.5 APTT 27 Puncture Site pCO2 pO2 HCO3 ABG pH ABG Total CO2 ABG O2 Saturation ABG Base Excess ABG Hemoglobin ABG Carboxyhemoglobin POC ABG HHb (Measured) ABG Methemoglobin Jose Test A-a O2 Difference Respiratory Index Hgb O2 Saturation Vent Mode Mechanical Rate FiO2 Tidal Volume PEEP Crit Value Called To Crit Value Called By Crit Value Read Back Blood Gas Notified Time Sodium 147 Potassium 5.2 Chloride 110 H Carbon Dioxide 37 H Anion Gap 5 L BUN 53 H Creatinine 1.5 H Est GFR ( Amer) 42 Est GFR (Non-Af Amer) 35 POC Glucose (mg/dL) Random Glucose 236 H D Calcium 8.6 Phosphorus 3.8 Magnesium 2.8 H Total Bilirubin 0.2 AST 90 H D ALT 66 H D Alkaline Phosphatase 146 H D Total Protein 5.2 L Albumin 2.7 L Globulin 2.5 Albumin/Globulin Ratio 1.1 Urine Color Urine Clarity Urine pH Ur Specific [place] Urine Protein Urine Glucose (UA) Urine Ketones Urine Blood Urine Nitrate Urine Bilirubin Urine Urobilinogen Ur Leukocyte Esterase Urine RBC (Auto) Ur Squamous Epith Cells Urine Yeast (Budding) Ur Random Creatinine Ur Random Sodium Random Vancomycin 09/20/18 09/20/18 09/20/18 08:05 08:05 08:05 WBC RBC Hgb Hct MCV MCH MCHC RDW Plt Count MPV APTT Puncture Site pCO2 pO2 HCO3 ABG pH ABG Total CO2 ABG O2 Saturation ABG Base Excess ABG Hemoglobin ABG Carboxyhemoglobin POC ABG HHb (Measured) ABG Methemoglobin Jose Test A-a O2 Difference Respiratory Index Hgb O2 Saturation Vent Mode Mechanical Rate FiO2 Tidal Volume PEEP Crit Value Called To Crit Value Called By Crit Value Read Back Blood Gas Notified Time Sodium Potassium Chloride Carbon Dioxide Anion Gap BUN Creatinine Est GFR ( Amer) Est GFR (Non-Af Amer) POC Glucose (mg/dL) Random Glucose Calcium Phosphorus Magnesium Total Bilirubin AST ALT Alkaline Phosphatase Total Protein Albumin Globulin Albumin/Globulin Ratio Urine Color Yellow Urine Clarity Slight-cloudy Urine pH 6.0 Ur Specific [place] 1.025 Urine Protein Negative Urine Glucose (UA) Negative Urine Ketones Negative Urine Blood Small Urine Nitrate Negative Urine Bilirubin Negative Urine Urobilinogen 0.2 Ur Leukocyte Esterase Negative Urine RBC (Auto) 14 H Ur Squamous Epith Cells 8 H Urine Yeast (Budding) Many H Ur Random Creatinine 46.0 Ur Random Sodium 44 Random Vancomycin 15.6 Radiology Impressions: Radiology Impressions Chest X-Ray 09/20/18 07:00 Impression: Lines and tubes in stable position. No gross pneumothoraces. Worsening now moderate left pleural effusion. Dense bilateral pleural parenchymal opacities in both lung pal superimposed on chronic fibrotic changes. Heart is obscured. Fingerstick Blood Sugar Results: 281 Review of Systems - Review of Systems Systems not reviewed;Unavailable: Intubated Assessment/Plan - Assessment and Plan (Free Text) Assessment: 68 year old female with hx bronchiectasis, HFrEF in worsening respiratory state, brought to ICU for vent support and close monitoring. Bilateral chest tubes in place, patient still on vent. Patient made DNR and discussed with son who has chosen to go forward with terminal extubation for this patient. Pulm Bronchiectasis/Suspected Fibrotic Lung Disease/R Lung Pneumothorax -Noted to have signficant lung disease on prior CT with worsening pneumothorax on CXR -Patient sedated and intubated, on vent -Significant R pneumo on CXR 09/15 -STAT CT Surgery consult, Dr. Josue for chest tube evaluation --S/p pigtail catheter insertion overnight with decrease in size on follow-up x- ray - Pt now with b/l chest tubes -Patient remains in severe respiratory distress on vent -Vent: PRVC --> Pressure Control -Repeat ABG - f/u -Plan to terminally extubate Cardio Hx HFrEF -C/w HF meds -Strict Is and Os -Cardiology on board Tachycardia -HR 160s sinus on monitor -Esmolol drip started - --> improved to 120s/130s ID Pneumonia -Patchy bilateral infiltrates on CXR -Abx per ID - Dr. Land --Tiffany Lestersytreva -Urine growing yeast species 09/14 -Sputum culture - pending PPx -Protonix 20 mg IV daily -ETT in place -Code Status - Updated to DNR 09/19 (consent in chart) Assessment and plan d/w Dr. Mckay Nassar, PGY-1 <Spenser Bashir S - Last Filed: 09/20/18 16:30> CCU Subjective - Physician Review Critical Care Time Spent (in minutes): 30 CCU Objective - Vital Signs / Intake & Output Vital Signs (Last 4 hours): Vital Signs Pulse Resp BP Pulse Ox 09/20/18 14:00 0 L 09/20/18 13:00 123 H 30 H 107/67 91 L Intake and Output (Last 8hrs): Intake & Output 09/20/18 09/20/18 09/20/18 06:59 14:59 22:59 Intake Total 1203.6 809.7 Output Total 358 Balance 845.6 809.7 Weight 88 lb Intake: IV 330 282 Intake, IV Amount 513.6 212.7 Left Distal Port Internal 77.6 67.9 Jugular Left Medial Port Internal 48.8 42.7 Jugular Left Proximal Port 165.6 86.9 Internal Jugular Left Proximal Port 121.6 15.2 Internal Jugular Y-site Right Forearm 100 Tube Feeding 360 315 Output: Chest Tube Drainage 78 Left Mid-Axillary Chest 56 Right Upper Mid-Axillary 22 Chest Urine 280 2-way Urethral 280 Other: # Voids 2-way Urethral 800 # Bowel Movements 0 - Medications Active Medications: Active Medications Generic Name Dose Route Start Last Admin Trade Name Freq PRN Reason Stop Dose Admin Albuterol/Ipratropium 3 ml 09/12/18 12:00 09/20/18 12:15 Duoneb 3 Mg/0.5 Mg (3 Ml) Ud INH Not Given RQ4 TANA Heparin Sodium (Porcine) 5,000 units 09/19/18 14:00 09/20/18 05:57 Heparin SC 5,000 units Q8 TANA Administration Piperacillin Sod/Tazobactam 100 mls @ 200 mls/hr 09/11/18 06:30 09/20/18 11:29 Sod 3.375 gm/ Sodium Chloride IVPB 200 mls/hr Q6H TANA Administration Protocol Vancomycin HCl 1 gm/ Sodium 250 mls @ 166.7 mls/hr 09/11/18 18:15 09/19/18 18:13 Chloride IVPB 166.7 mls/hr Q24H TANA Administration Protocol Propofol 1,000 mg in 100 mls @ 2.43 mls/hr 09/17/18 00:11 09/20/18 10:58 Diprivan IV 40 mcg/kg/min .Q24H PRN 9.72 mls/hr TITRATE PER MD ORDER Administration Protocol 10 MCG/KG/MIN Norepinephrine Bitartrate 8 mg 250 mls @ 7.5 mls/hr 09/17/18 17:00 / Dextrose IV .Q24H PRN TITRATE PER MD ORDER Protocol 4 MCG/MIN Cisatracurium Besylate 100 mg/ 250 mls @ 17.96 mls/hr 09/19/18 10:00 09/20/18 11:06 Dextrose IV 0 mcg/kg/min .[id number] PRN 0 mls/hr Agitation Titration Protocol 3 MCG/KG/MIN Esmolol HCl 250 mls @ 5.987 mls/hr 09/19/18 10:45 09/19/18 11:44 Brevibloc IV 5.987 mls/hr .Q24H PRN Administration PER TITRATION PROTOCOL Protocol 25 MCG/KG/MIN Fentanyl Citrate 2,500 mcg/ 250 mls @ 19.32 mls/hr 09/19/18 19:33 09/20/18 11:04 Sodium Chloride IV Not Given .[id number] TANA Protocol 4.84 MCG/KG/HR Lactobacillus Acidophilus 1 cap 09/15/18 18:00 09/20/18 10:12 Lactobacillus PO 1 cap BID TANA Administration Methylprednisolone 40 mg 09/12/18 09:45 09/20/18 10:15 Solu-Medrol IVP 40 mg Q8H TANA Administration Montelukast Sodium 10 mg 09/10/18 22:00 09/19/18 22:05 Singulair PO 10 mg HS TANA Administration Pantoprazole Sodium 40 mg 09/17/18 08:30 09/20/18 10:00 Protonix Inj IVP 40 mg Q12H TANA Administration - Patient Studies Lab Studies: Microbiology Studies 09/18/18 05:23 Gram Stain - Final Trachasp Sputum Culture - Final NORMAL ORAL DARON 09/16/18 18:30 Bronchial Culture - Final Bronchial Washings No growth. Lab Studies 09/20/18 09/20/18 09/20/18 Range/Units 08:05 08:05 08:05 WBC (4.8-10.8) K/uL RBC (3.80-5.20) Mil/uL Hgb (11.0-16.0) g/dL Hct (34.0-47.0) % MCV (81.0-99.0) fL MCH (27.0-31.0) pg MCHC (33.0-37.0) g/dL RDW (11.5-14.5) % Plt Count (130-400) K/uL MPV (7.2-11.7) fL APTT (21-34) SECONDS Puncture Site pCO2 (35-45) mm/Hg pO2 (80-100) mm/Hg HCO3 (21-28) mmol/L ABG pH (7.35-7.45) ABG Total CO2 (22-28) mmol/L ABG O2 Saturation (95-98) % ABG Base Excess (-2.0-3.0) mmol/L ABG Hemoglobin (11.7-17.4) g/dL ABG Carboxyhemoglobin (0.5-1.5) % POC ABG HHb (Measured) (0.0-5.0) % ABG Methemoglobin (0.0-3.0) % Jose Test A-a O2 Difference mm/Hg Respiratory Index Hgb O2 Saturation (95.0-98.0) % Vent Mode Mechanical Rate FiO2 % Tidal Volume PEEP Crit Value Called To Crit Value Called By Crit Value Read Back Blood Gas Notified Time Sodium (132-148) mmol/L Potassium (3.6-5.2) mmol/L Chloride (98-107) mmol/L Carbon Dioxide (22-30) mmol/L Anion Gap (10-20) BUN (7-17) mg/dL Creatinine (0.7-1.2) mg/dL Est GFR ( Amer) Est GFR (Non-Af Amer) POC Glucose (mg/dL) (65-110) mg/dL Random Glucose (65-105) mg/dL Calcium (8.6-10.4) mg/dl Phosphorus (2.5-4.5) mg/dL Magnesium (1.6-2.3) mg/dL Total Bilirubin (0.2-1.3) mg/dL AST (14-36) U/L ALT (9-52) U/L Alkaline Phosphatase (38-126) U/L Total Protein (6.3-8.3) g/dL Albumin (3.5-5.0) g/dL Globulin (2.2-3.9) gm/dL Albumin/Globulin Ratio (1.0-2.1) Urine Color Yellow (YELLOW) Urine Clarity Slight-cloudy (Clear) Urine pH 6.0 (5.0-8.0) Ur Specific [place] 1.025 (1.003-1.030) Urine Protein Negative (NEGATIVE) mg/dL Urine Glucose (UA) Negative (Normal) mg/dL Urine Ketones Negative (NEGATIVE) mg/dL Urine Blood Small (NEGATIVE) Urine Nitrate Negative (NEGATIVE) Urine Bilirubin Negative (NEGATIVE) Urine Urobilinogen 0.2 (0.2-1.0) mg/dL Ur Leukocyte Esterase Negative (Negative) Remy/uL Urine RBC (Auto) 14 H (0-3) /hpf Ur Squamous Epith Cells 8 H (0-5) /hpf Urine Yeast (Budding) Many H (NEGATIVE) /hpf Ur Random Creatinine 46.0 mg/dL Ur Random Sodium 44 mmol/L Random Vancomycin 15.6 ug/mL 09/20/18 09/20/18 09/20/18 Range/Units 06:13 06:13 06:13 WBC 15.8 H (4.8-10.8) K/uL RBC 3.96 (3.80-5.20) Mil/uL Hgb 10.6 L (11.0-16.0) g/dL Hct 33.8 L (34.0-47.0) % MCV 85.3 D (81.0-99.0) fL MCH 26.9 L (27.0-31.0) pg MCHC 31.5 L (33.0-37.0) g/dL RDW 18.0 H (11.5-14.5) % Plt Count 234 (130-400) K/uL MPV 10.5 (7.2-11.7) fL APTT 27 (21-34) SECONDS Puncture Site pCO2 (35-45) mm/Hg pO2 (80-100) mm/Hg HCO3 (21-28) mmol/L ABG pH (7.35-7.45) ABG Total CO2 (22-28) mmol/L ABG O2 Saturation (95-98) % ABG Base Excess (-2.0-3.0) mmol/L ABG Hemoglobin (11.7-17.4) g/dL ABG Carboxyhemoglobin (0.5-1.5) % POC ABG HHb (Measured) (0.0-5.0) % ABG Methemoglobin (0.0-3.0) % Jose Test A-a O2 Difference mm/Hg Respiratory Index Hgb O2 Saturation (95.0-98.0) % Vent Mode Mechanical Rate FiO2 % Tidal Volume PEEP Crit Value Called To Crit Value Called By Crit Value Read Back Blood Gas Notified Time Sodium 147 (132-148) mmol/L Potassium 5.2 (3.6-5.2) mmol/L Chloride 110 H (98-107) mmol/L Carbon Dioxide 37 H (22-30) mmol/L Anion Gap 5 L (10-20) BUN 53 H (7-17) mg/dL Creatinine 1.5 H (0.7-1.2) mg/dL Est GFR ( Amer) 42 Est GFR (Non-Af Amer) 35 POC Glucose (mg/dL) (65-110) mg/dL Random Glucose 236 H D (65-105) mg/dL Calcium 8.6 (8.6-10.4) mg/dl Phosphorus 3.8 (2.5-4.5) mg/dL Magnesium 2.8 H (1.6-2.3) mg/dL Total Bilirubin 0.2 (0.2-1.3) mg/dL AST 90 H D (14-36) U/L ALT 66 H D (9-52) U/L Alkaline Phosphatase 146 H D (38-126) U/L Total Protein 5.2 L (6.3-8.3) g/dL Albumin 2.7 L (3.5-5.0) g/dL Globulin 2.5 (2.2-3.9) gm/dL Albumin/Globulin Ratio 1.1 (1.0-2.1) Urine Color (YELLOW) Urine Clarity (Clear) Urine pH (5.0-8.0) Ur Specific [place] (1.003-1.030) Urine Protein (NEGATIVE) mg/dL Urine Glucose (UA) (Normal) mg/dL Urine Ketones (NEGATIVE) mg/dL Urine Blood (NEGATIVE) Urine Nitrate (NEGATIVE) Urine Bilirubin (NEGATIVE) Urine Urobilinogen (0.2-1.0) mg/dL Ur Leukocyte Esterase (Negative) Remy/uL Urine RBC (Auto) (0-3) /hpf Ur Squamous Epith Cells (0-5) /hpf Urine Yeast (Budding) (NEGATIVE) /hpf Ur Random Creatinine mg/dL Ur Random Sodium mmol/L Random Vancomycin ug/mL 09/20/18 09/20/18 09/19/18 Range/Units 05:19 00:12 18:19 WBC (4.8-10.8) K/uL RBC (3.80-5.20) Mil/uL Hgb (11.0-16.0) g/dL Hct (34.0-47.0) % MCV (81.0-99.0) fL MCH (27.0-31.0) pg MCHC (33.0-37.0) g/dL RDW (11.5-14.5) % Plt Count (130-400) K/uL MPV (7.2-11.7) fL APTT (21-34) SECONDS Puncture Site Rb pCO2 99 H* (35-45) mm/Hg pO2 45 L (80-100) mm/Hg HCO3 29.4 H (21-28) mmol/L ABG pH 7.18 L* (7.35-7.45) ABG Total CO2 40.0 H (22-28) mmol/L ABG O2 Saturation 83.7 L (95-98) % ABG Base Excess 6.2 H (-2.0-3.0) mmol/L ABG Hemoglobin 10.4 L (11.7-17.4) g/dL ABG Carboxyhemoglobin 2.5 H (0.5-1.5) % POC ABG HHb (Measured) 15.8 H (0.0-5.0) % ABG Methemoglobin 0.8 (0.0-3.0) % Jose Test Na A-a O2 Difference 544.0 mm/Hg Respiratory Index 12.1 Hgb O2 Saturation 80.9 L (95.0-98.0) % Vent Mode Prvc Mechanical Rate 30 FiO2 100.0 % Tidal Volume 300 PEEP 5 Crit Value Called To Nereyda rn Crit Value Called By Hollie emergency management consultant Crit Value Read Back Y Blood Gas Notified Time 548 Sodium (132-148) mmol/L Potassium (3.6-5.2) mmol/L Chloride (98-107) mmol/L Carbon Dioxide (22-30) mmol/L Anion Gap (10-20) BUN (7-17) mg/dL Creatinine (0.7-1.2) mg/dL Est GFR ( Amer) Est GFR (Non-Af Amer) POC Glucose (mg/dL) 281 H 244 H (65-110) mg/dL Random Glucose (65-105) mg/dL Calcium (8.6-10.4) mg/dl Phosphorus (2.5-4.5) mg/dL Magnesium (1.6-2.3) mg/dL Total Bilirubin (0.2-1.3) mg/dL AST (14-36) U/L ALT (9-52) U/L Alkaline Phosphatase (38-126) U/L Total Protein (6.3-8.3) g/dL Albumin (3.5-5.0) g/dL Globulin (2.2-3.9) gm/dL Albumin/Globulin Ratio (1.0-2.1) Urine Color (YELLOW) Urine Clarity (Clear) Urine pH (5.0-8.0) Ur Specific [place] (1.003-1.030) Urine Protein (NEGATIVE) mg/dL Urine Glucose (UA) (Normal) mg/dL Urine Ketones (NEGATIVE) mg/dL Urine Blood (NEGATIVE) Urine Nitrate (NEGATIVE) Urine Bilirubin (NEGATIVE) Urine Urobilinogen (0.2-1.0) mg/dL Ur Leukocyte Esterase (Negative) Remy/uL Urine RBC (Auto) (0-3) /hpf Ur Squamous Epith Cells (0-5) /hpf Urine Yeast (Budding) (NEGATIVE) /hpf Ur Random Creatinine mg/dL Ur Random Sodium mmol/L Random Vancomycin ug/mL 09/19/18 09/18/18 09/18/18 Range/Units 11:21 23:36 17:37 WBC (4.8-10.8) K/uL RBC (3.80-5.20) Mil/uL Hgb (11.0-16.0) g/dL Hct (34.0-47.0) % MCV (81.0-99.0) fL MCH (27.0-31.0) pg MCHC (33.0-37.0) g/dL RDW (11.5-14.5) % Plt Count (130-400) K/uL MPV (7.2-11.7) fL APTT (21-34) SECONDS Puncture Site pCO2 (35-45) mm/Hg pO2 (80-100) mm/Hg HCO3 (21-28) mmol/L ABG pH (7.35-7.45) ABG Total CO2 (22-28) mmol/L ABG O2 Saturation (95-98) % ABG Base Excess (-2.0-3.0) mmol/L ABG Hemoglobin (11.7-17.4) g/dL ABG Carboxyhemoglobin (0.5-1.5) % POC ABG HHb (Measured) (0.0-5.0) % ABG Methemoglobin (0.0-3.0) % Jose Test A-a O2 Difference mm/Hg Respiratory Index Hgb O2 Saturation (95.0-98.0) % Vent Mode Mechanical Rate FiO2 % Tidal Volume PEEP Crit Value Called To Crit Value Called By Crit Value Read Back Blood Gas Notified Time Sodium (132-148) mmol/L Potassium (3.6-5.2) mmol/L Chloride (98-107) mmol/L Carbon Dioxide (22-30) mmol/L Anion Gap (10-20) BUN (7-17) mg/dL Creatinine (0.7-1.2) mg/dL Est GFR ( Amer) Est GFR (Non-Af Amer) POC Glucose (mg/dL) 277 H 232 H 207 H (65-110) mg/dL Random Glucose (65-105) mg/dL Calcium (8.6-10.4) mg/dl Phosphorus (2.5-4.5) mg/dL Magnesium (1.6-2.3) mg/dL Total Bilirubin (0.2-1.3) mg/dL AST (14-36) U/L ALT (9-52) U/L Alkaline Phosphatase (38-126) U/L Total Protein (6.3-8.3) g/dL Albumin (3.5-5.0) g/dL Globulin (2.2-3.9) gm/dL Albumin/Globulin Ratio (1.0-2.1) Urine Color (YELLOW) Urine Clarity (Clear) Urine pH (5.0-8.0) Ur Specific [place] (1.003-1.030) Urine Protein (NEGATIVE) mg/dL Urine Glucose (UA) (Normal) mg/dL Urine Ketones (NEGATIVE) mg/dL Urine Blood (NEGATIVE) Urine Nitrate (NEGATIVE) Urine Bilirubin (NEGATIVE) Urine Urobilinogen (0.2-1.0) mg/dL Ur Leukocyte Esterase (Negative) Remy/uL Urine RBC (Auto) (0-3) /hpf Ur Squamous Epith Cells (0-5) /hpf Urine Yeast (Budding) (NEGATIVE) /hpf Ur Random Creatinine mg/dL Ur Random Sodium mmol/L Random Vancomycin ug/mL 09/18/18 09/18/18 09/18/18 Range/Units 11:38 04:46 01:09 WBC (4.8-10.8) K/uL RBC (3.80-5.20) Mil/uL Hgb (11.0-16.0) g/dL Hct (34.0-47.0) % MCV (81.0-99.0) fL MCH (27.0-31.0) pg MCHC (33.0-37.0) g/dL RDW (11.5-14.5) % Plt Count (130-400) K/uL MPV (7.2-11.7) fL APTT (21-34) SECONDS Puncture Site pCO2 (35-45) mm/Hg pO2 (80-100) mm/Hg HCO3 (21-28) mmol/L ABG pH (7.35-7.45) ABG Total CO2 (22-28) mmol/L ABG O2 Saturation (95-98) % ABG Base Excess (-2.0-3.0) mmol/L ABG Hemoglobin (11.7-17.4) g/dL ABG Carboxyhemoglobin (0.5-1.5) % POC ABG HHb (Measured) (0.0-5.0) % ABG Methemoglobin (0.0-3.0) % Jose Test A-a O2 Difference mm/Hg Respiratory Index Hgb O2 Saturation (95.0-98.0) % Vent Mode Mechanical Rate FiO2 % Tidal Volume PEEP Crit Value Called To Crit Value Called By Crit Value Read Back Blood Gas Notified Time Sodium (132-148) mmol/L Potassium (3.6-5.2) mmol/L Chloride (98-107) mmol/L Carbon Dioxide (22-30) mmol/L Anion Gap (10-20) BUN (7-17) mg/dL Creatinine (0.7-1.2) mg/dL Est GFR ( Amer) Est GFR (Non-Af Amer) POC Glucose (mg/dL) 171 H 186 H 143 H (65-110) mg/dL Random Glucose (65-105) mg/dL Calcium (8.6-10.4) mg/dl Phosphorus (2.5-4.5) mg/dL Magnesium (1.6-2.3) mg/dL Total Bilirubin (0.2-1.3) mg/dL AST (14-36) U/L ALT (9-52) U/L Alkaline Phosphatase (38-126) U/L Total Protein (6.3-8.3) g/dL Albumin (3.5-5.0) g/dL Globulin (2.2-3.9) gm/dL Albumin/Globulin Ratio (1.0-2.1) Urine Color (YELLOW) Urine Clarity (Clear) Urine pH (5.0-8.0) Ur Specific [place] (1.003-1.030) Urine Protein (NEGATIVE) mg/dL Urine Glucose (UA) (Normal) mg/dL Urine Ketones (NEGATIVE) mg/dL Urine Blood (NEGATIVE) Urine Nitrate (NEGATIVE) Urine Bilirubin (NEGATIVE) Urine Urobilinogen (0.2-1.0) mg/dL Ur Leukocyte Esterase (Negative) Remy/uL Urine RBC (Auto) (0-3) /hpf Ur Squamous Epith Cells (0-5) /hpf Urine Yeast (Budding) (NEGATIVE) /hpf Ur Random Creatinine mg/dL Ur Random Sodium mmol/L Random Vancomycin ug/mL 09/17/18 09/17/18 Range/Units 17:52 13:29 WBC (4.8-10.8) K/uL RBC (3.80-5.20) Mil/uL Hgb (11.0-16.0) g/dL Hct (34.0-47.0) % MCV (81.0-99.0) fL MCH (27.0-31.0) pg MCHC (33.0-37.0) g/dL RDW (11.5-14.5) % Plt Count (130-400) K/uL MPV (7.2-11.7) fL APTT (21-34) SECONDS Puncture Site pCO2 (35-45) mm/Hg pO2 (80-100) mm/Hg HCO3 (21-28) mmol/L ABG pH (7.35-7.45) ABG Total CO2 (22-28) mmol/L ABG O2 Saturation (95-98) % ABG Base Excess (-2.0-3.0) mmol/L ABG Hemoglobin (11.7-17.4) g/dL ABG Carboxyhemoglobin (0.5-1.5) % POC ABG HHb (Measured) (0.0-5.0) % ABG Methemoglobin (0.0-3.0) % Jose Test A-a O2 Difference mm/Hg Respiratory Index Hgb O2 Saturation (95.0-98.0) % Vent Mode Mechanical Rate FiO2 % Tidal Volume PEEP Crit Value Called To Crit Value Called By Crit Value Read Back Blood Gas Notified Time Sodium (132-148) mmol/L Potassium (3.6-5.2) mmol/L Chloride (98-107) mmol/L Carbon Dioxide (22-30) mmol/L Anion Gap (10-20) BUN (7-17) mg/dL Creatinine (0.7-1.2) mg/dL Est GFR ( Amer) Est GFR (Non-Af Amer) POC Glucose (mg/dL) 110 91 (65-110) mg/dL Random Glucose (65-105) mg/dL Calcium (8.6-10.4) mg/dl Phosphorus (2.5-4.5) mg/dL Magnesium (1.6-2.3) mg/dL Total Bilirubin (0.2-1.3) mg/dL AST (14-36) U/L ALT (9-52) U/L Alkaline Phosphatase (38-126) U/L Total Protein (6.3-8.3) g/dL Albumin (3.5-5.0) g/dL Globulin (2.2-3.9) gm/dL Albumin/Globulin Ratio (1.0-2.1) Urine Color (YELLOW) Urine Clarity (Clear) Urine pH (5.0-8.0) Ur Specific [place] (1.003-1.030) Urine Protein (NEGATIVE) mg/dL Urine Glucose (UA) (Normal) mg/dL Urine Ketones (NEGATIVE) mg/dL Urine Blood (NEGATIVE) Urine Nitrate (NEGATIVE) Urine Bilirubin (NEGATIVE) Urine Urobilinogen (0.2-1.0) mg/dL Ur Leukocyte Esterase (Negative) Remy/uL Urine RBC (Auto) (0-3) /hpf Ur Squamous Epith Cells (0-5) /hpf Urine Yeast (Budding) (NEGATIVE) /hpf Ur Random Creatinine mg/dL Ur Random Sodium mmol/L Random Vancomycin ug/mL Laboratory Results - last 24 hr 09/17/18 09/17/18 09/18/18 13:29 17:52 01:09 WBC RBC Hgb Hct MCV MCH MCHC RDW Plt Count MPV APTT Puncture Site pCO2 pO2 HCO3 ABG pH ABG Total CO2 ABG O2 Saturation ABG Base Excess ABG Hemoglobin ABG Carboxyhemoglobin POC ABG HHb (Measured) ABG Methemoglobin Jose Test A-a O2 Difference Respiratory Index Hgb O2 Saturation Vent Mode Mechanical Rate FiO2 Tidal Volume PEEP Crit Value Called To Crit Value Called By Crit Value Read Back Blood Gas Notified Time Sodium Potassium Chloride Carbon Dioxide Anion Gap BUN Creatinine Est GFR ( Amer) Est GFR (Non-Af Amer) POC Glucose (mg/dL) 91 110 143 H Random Glucose Calcium Phosphorus Magnesium Total Bilirubin AST ALT Alkaline Phosphatase Total Protein Albumin Globulin Albumin/Globulin Ratio Urine Color Urine Clarity Urine pH Ur Specific [place] Urine Protein Urine Glucose (UA) Urine Ketones Urine Blood Urine Nitrate Urine Bilirubin Urine Urobilinogen Ur Leukocyte Esterase Urine RBC (Auto) Ur Squamous Epith Cells Urine Yeast (Budding) Ur Random Creatinine Ur Random Sodium Random Vancomycin 09/18/18 09/18/18 09/18/18 04:46 11:38 17:37 WBC RBC Hgb Hct MCV MCH MCHC RDW Plt Count MPV APTT Puncture Site pCO2 pO2 HCO3 ABG pH ABG Total CO2 ABG O2 Saturation ABG Base Excess ABG Hemoglobin ABG Carboxyhemoglobin POC ABG HHb (Measured) ABG Methemoglobin Jose Test A-a O2 Difference Respiratory Index Hgb O2 Saturation Vent Mode Mechanical Rate FiO2 Tidal Volume PEEP Crit Value Called To Crit Value Called By Crit Value Read Back Blood Gas Notified Time Sodium Potassium Chloride Carbon Dioxide Anion Gap BUN Creatinine Est GFR ( Amer) Est GFR (Non-Af Amer) POC Glucose (mg/dL) 186 H 171 H 207 H Random Glucose Calcium Phosphorus Magnesium Total Bilirubin AST ALT Alkaline Phosphatase Total Protein Albumin Globulin Albumin/Globulin Ratio Urine Color Urine Clarity Urine pH Ur Specific [place] Urine Protein Urine Glucose (UA) Urine Ketones Urine Blood Urine Nitrate Urine Bilirubin Urine Urobilinogen Ur Leukocyte Esterase Urine RBC (Auto) Ur Squamous Epith Cells Urine Yeast (Budding) Ur Random Creatinine Ur Random Sodium Random Vancomycin 09/18/18 09/19/18 09/19/18 23:36 11:21 18:19 WBC RBC Hgb Hct MCV MCH MCHC RDW Plt Count MPV APTT Puncture Site pCO2 pO2 HCO3 ABG pH ABG Total CO2 ABG O2 Saturation ABG Base Excess ABG Hemoglobin ABG Carboxyhemoglobin POC ABG HHb (Measured) ABG Methemoglobin Ojse Test A-a O2 Difference Respiratory Index Hgb O2 Saturation Vent Mode Mechanical Rate FiO2 Tidal Volume PEEP Crit Value Called To Crit Value Called By Crit Value Read Back Blood Gas Notified Time Sodium Potassium Chloride Carbon Dioxide Anion Gap BUN Creatinine Est GFR ( Amer) Est GFR (Non-Af Amer) POC Glucose (mg/dL) 232 H 277 H 244 H Random Glucose Calcium Phosphorus Magnesium Total Bilirubin AST ALT Alkaline Phosphatase Total Protein Albumin Globulin Albumin/Globulin Ratio Urine Color Urine Clarity Urine pH Ur Specific [place] Urine Protein Urine Glucose (UA) Urine Ketones Urine Blood Urine Nitrate Urine Bilirubin Urine Urobilinogen Ur Leukocyte Esterase Urine RBC (Auto) Ur Squamous Epith Cells Urine Yeast (Budding) Ur Random Creatinine Ur Random Sodium Random Vancomycin 09/20/18 09/20/18 09/20/18 00:12 05:19 06:13 WBC 15.8 H RBC 3.96 Hgb 10.6 L Hct 33.8 L MCV 85.3 D MCH 26.9 L MCHC 31.5 L RDW 18.0 H Plt Count 234 MPV 10.5 APTT Puncture Site Rb pCO2 99 H* pO2 45 L HCO3 29.4 H ABG pH 7.18 L* ABG Total CO2 40.0 H ABG O2 Saturation 83.7 L ABG Base Excess 6.2 H ABG Hemoglobin 10.4 L ABG Carboxyhemoglobin 2.5 H POC ABG HHb (Measured) 15.8 H ABG Methemoglobin 0.8 Jose Test Na A-a O2 Difference 544.0 Respiratory Index 12.1 Hgb O2 Saturation 80.9 L Vent Mode Prvc Mechanical Rate 30 FiO2 100.0 Tidal Volume 300 PEEP 5 Crit Value Called To Nereyda rn Crit Value Called By Hollie emergency management consultant Crit Value Read Back Y Blood Gas Notified Time 548 Sodium Potassium Chloride Carbon Dioxide Anion Gap BUN Creatinine Est GFR ( Amer) Est GFR (Non-Af Amer) POC Glucose (mg/dL) 281 H Random Glucose Calcium Phosphorus Magnesium Total Bilirubin AST ALT Alkaline Phosphatase Total Protein Albumin Globulin Albumin/Globulin Ratio Urine Color Urine Clarity Urine pH Ur Specific [place] Urine Protein Urine Glucose (UA) Urine Ketones Urine Blood Urine Nitrate Urine Bilirubin Urine Urobilinogen Ur Leukocyte Esterase Urine RBC (Auto) Ur Squamous Epith Cells Urine Yeast (Budding) Ur Random Creatinine Ur Random Sodium Random Vancomycin 09/20/18 09/20/18 09/20/18 06:13 06:13 08:05 WBC RBC Hgb Hct MCV MCH MCHC RDW Plt Count MPV APTT 27 Puncture Site pCO2 pO2 HCO3 ABG pH ABG Total CO2 ABG O2 Saturation ABG Base Excess ABG Hemoglobin ABG Carboxyhemoglobin POC ABG HHb (Measured) ABG Methemoglobin Jose Test A-a O2 Difference Respiratory Index Hgb O2 Saturation Vent Mode Mechanical Rate FiO2 Tidal Volume PEEP Crit Value Called To Crit Value Called By Crit Value Read Back Blood Gas Notified Time Sodium 147 Potassium 5.2 Chloride 110 H Carbon Dioxide 37 H Anion Gap 5 L BUN 53 H Creatinine 1.5 H Est GFR ( Amer) 42 Est GFR (Non-Af Amer) 35 POC Glucose (mg/dL) Random Glucose 236 H D Calcium 8.6 Phosphorus 3.8 Magnesium 2.8 H Total Bilirubin 0.2 AST 90 H D ALT 66 H D Alkaline Phosphatase 146 H D Total Protein 5.2 L Albumin 2.7 L Globulin 2.5 Albumin/Globulin Ratio 1.1 Urine Color Urine Clarity Urine pH Ur Specific [place] Urine Protein Urine Glucose (UA) Urine Ketones Urine Blood Urine Nitrate Urine Bilirubin Urine Urobilinogen Ur Leukocyte Esterase Urine RBC (Auto) Ur Squamous Epith Cells Urine Yeast (Budding) Ur Random Creatinine Ur Random Sodium Random Vancomycin 15.6 09/20/18 09/20/18 08:05 08:05 WBC RBC Hgb Hct MCV MCH MCHC RDW Plt Count MPV APTT Puncture Site pCO2 pO2 HCO3 ABG pH ABG Total CO2 ABG O2 Saturation ABG Base Excess ABG Hemoglobin ABG Carboxyhemoglobin POC ABG HHb (Measured) ABG Methemoglobin Jose Test A-a O2 Difference Respiratory Index Hgb O2 Saturation Vent Mode Mechanical Rate FiO2 Tidal Volume PEEP Crit Value Called To Crit Value Called By Crit Value Read Back Blood Gas Notified Time Sodium Potassium Chloride Carbon Dioxide Anion Gap BUN Creatinine Est GFR ( Amer) Est GFR (Non-Af Amer) POC Glucose (mg/dL) Random Glucose Calcium Phosphorus Magnesium Total Bilirubin AST ALT Alkaline Phosphatase Total Protein Albumin Globulin Albumin/Globulin Ratio Urine Color Yellow Urine Clarity Slight-cloudy Urine pH 6.0 Ur Specific [place] 1.025 Urine Protein Negative Urine Glucose (UA) Negative Urine Ketones Negative Urine Blood Small Urine Nitrate Negative Urine Bilirubin Negative Urine Urobilinogen 0.2 Ur Leukocyte Esterase Negative Urine RBC (Auto) 14 H Ur Squamous Epith Cells 8 H Urine Yeast (Budding) Many H Ur Random Creatinine 46.0 Ur Random Sodium 44 Random Vancomycin Radiology Impressions: Radiology Impressions Chest X-Ray 09/20/18 07:00 Impression: Lines and tubes in stable position. No gross pneumothoraces. Worsening now moderate left pleural effusion. Dense bilateral pleural parenchymal opacities in both lung pal superimposed on chronic fibrotic changes. Heart is obscured. Attending/Attestation - Attestation I have personally seen and examined this patient.: Yes I have fully participated in the care of the patient.: Yes I have reviewed all pertinent clinical information: Yes Notes (Text): 09/20/18 16:29 Patient seen and examined in the intensive care unit. Patient terminally extubated after discussing with the family Patient pronounced at 1.25pm
--- NOTE | 2018-09-20 14:03 | CP.PCM.DIS ---
Provider - Provider Date of Admission: 09/10/18 05:11 Attending physician: Raghu Gonzales MD Consults: 09/10/18 06:57 Pulmonology Consult Routine Comment: Consulting Provider: Spenser Bashir Consulting Physician: Spenser Bashir Reason for Consult: bronchietasis, bilateral infiltrates, small ptx 09/10/18 07:43 Nephrology Consult Routine Comment: Consulting Provider: Odell Lindsay Consulting Physician: Odell Lindsay Reason for Consult: hyponatremia 09/10/18 16:40 Case Management Referral Routine Comment: need help at home Physician Instructions: Reason For Exam: Reason for Referral: Discharge Planning Nursing Referral for Palliative Care Routine Comment: Physician Instructions: Reason For Exam: multiple hospital visits 09/12/18 14:21 Infectious Disease Consult Routine Comment: Consulting Provider: Juan Land Consulting Physician: Juan Land Reason for Consult: multifocal pneumonia, bronchectasis 09/13/18 23:41 Palliative Care Consult Routine Comment: Consulting Provider: Carol Ann Quach Physician Instructions: Reason For Exam: goals of care 09/15/18 09:48 Critical Care Consult Routine Comment: Consulting Provider: Chato Marte MD Consulting Physician: Chato Marte MD Reason for Consult: SOB 09/15/18 11:01 Physician Consult Routine Comment: Consulting Provider: Natan Amin Consulting Physician: Natan Amin Reason for Consult: Worsening pneumothorax, evaluate for chest tube placement 09/15/18 11:08 Physician Consult Stat Comment: Consulting Provider: Natan Amin Consulting Physician: Natan Amin Reason for Consult: Worsening pneumothorax, evaluate for chest tube placement 09/15/18 16:03 Nursing Referral for Wound Care Routine Comment: Physician Instructions: Reason For Exam: Sacral and rt buttock open sores 09/17/18 08:25 General Surgery Consult Routine Comment: Consulting Provider: Natan Amin Consulting Physician: Natan Amin Reason for Consult: right sided pneumo 09/17/18 12:02 Palliative Care Consult Routine Comment: Consulting Provider: Carol Ann Quach Physician Instructions: Reason For Exam: goals of care Time Spent in preparation of Discharge (in minutes): 31 Diagnosis - Discharge Diagnosis (1) DNR (do not resuscitate) Status: Acute (2) Acute respiratory failure Status: Acute Priority: High (3) Pulmonary fibrosis Status: Acute Priority: High (4) Systolic heart failure Status: Acute Priority: High (5) Pneumonia Status: Acute Priority: High (6) Pneumothorax Status: Acute Priority: High (7) Pulmonary embolus Status: Acute (8) Bronchiectasis Status: Acute (9) Prophylactic measure Status: Acute Priority: High Hospital Course - Lab Results Lab Results: Micro Results 09/18/18 05:23 Trachasp Gram Stain - Final 09/18/18 05:23 Trachasp Sputum Culture - Final NORMAL ORAL DARON 09/16/18 18:30 Bronchial Washings Bronchial Culture - Final No growth. 09/16/18 18:30 Lung Fungal Culture - Preliminary 09/16/18 18:30 Other: Please Indicate Mycobacterial Culture - Preliminary 09/16/18 05:59 Trachasp Gram Stain - Final 09/16/18 05:59 Trachasp Sputum Culture - Final NORMAL ORAL DARON 09/15/18 19:33 Unknown Mycobacterial Culture - Preliminary 09/16/18 05:59 Urine,Catheterized Urine Culture - Final No Growth (<1,000 CFU/ML) 09/15/18 11:45 Naris MRSA Culture (Admit) - Final MRSA NOT DETECTED 09/15/18 10:53 Other: Please Indicate Fungal Culture - Preliminary 09/14/18 09:08 Urine,Clean Catch Urine Culture - Final Yeast Species 09/10/18 06:29 Blood-Venous Blood Culture - Final NO GROWTH AFTER 5 DAYS 09/10/18 06:29 Blood-Venous Gram Stain - Final TEST NOT PERFORMED 09/10/18 06:28 Blood-Venous Blood Culture - Final NO GROWTH AFTER 5 DAYS 09/10/18 06:28 Blood-Venous Gram Stain - Final TEST NOT PERFORMED 09/10/18 06:03 Urine Random Urine Culture - Final Staphylococcus Epidermidis Most Recent Lab Values WBC 15.8 K/uL (4.8-10.8) H 09/20/18 06:13 RBC 3.96 Mil/uL (3.80-5.20) 09/20/18 06:13 Hgb 10.6 g/dL (11.0-16.0) L 09/20/18 06:13 Hct 33.8 % (34.0-47.0) L 09/20/18 06:13 MCV 85.3 fL (81.0-99.0) D 09/20/18 06:13 MCH 26.9 pg (27.0-31.0) L 09/20/18 06:13 MCHC 31.5 g/dL (33.0-37.0) L 09/20/18 06:13 RDW 18.0 % (11.5-14.5) H 09/20/18 06:13 Plt Count 234 K/uL (130-400) 09/20/18 06:13 MPV 10.5 fL (7.2-11.7) 09/20/18 06:13 Neut % (Auto) 94.2 % (50.0-75.0) H 09/17/18 17:21 Lymph % (Auto) 2.2 % (20.0-40.0) L 09/17/18 17:21 Peach % (Auto) 3.4 % (0.0-10.0) 09/17/18 17:21 Eos % (Auto) 0.1 % (0.0-4.0) 09/17/18 17:21 Baso % (Auto) 0.1 % (0.0-2.0) 09/17/18 17:21 Neut # (Auto) 17.9 K/uL (1.8-7.0) H 09/17/18 17:21 Lymph # (Auto) 0.4 K/uL (1.0-4.3) L 09/17/18 17:21 Peach # (Auto) 0.6 K/uL (0.0-0.8) 09/17/18 17:21 Eos # (Auto) 0.0 K/uL (0.0-0.7) 09/17/18 17:21 Baso # (Auto) 0.0 K/uL (0.0-0.2) 09/17/18 17:21 Neutrophils % (Manual) 96 % (50-75) H 09/17/18 17:21 Band Neutrophils % 1 % (0-2) 09/17/18 17:21 Lymphocytes % (Manual) 2 % (20-40) L 09/17/18 17:21 Reactive Lymphs % 4 % (0-0) H 09/10/18 02:27 Monocytes % (Manual) 1 % (0-10) 09/17/18 17:21 Platelet Estimate Normal (NORMAL) 09/17/18 17:21 Large Platelets Present 09/16/18 06:15 Giant Platelets Present 09/16/18 06:15 Polychromasia Slight 09/17/18 06:37 Hypochromasia (manual) Slight 09/17/18 06:37 Poikilocytosis (manual Slight 09/16/18 06:15 Anisocytosis (manual) Slight 09/17/18 06:37 Microcytosis (manual) Slight 09/17/18 06:37 Target Cells Slight 09/17/18 06:37 ESR 84 mm/hr (0-20) H 09/15/18 11:45 PT 13.3 SECONDS (9.7-12.2) H 09/15/18 12:23 INR 1.2 09/15/18 12:23 APTT 27 SECONDS (21-34) 09/20/18 06:13 Puncture Site Rb 09/20/18 05:19 pCO2 99 mm/Hg (35-45) H* 09/20/18 05:19 pO2 45 mm/Hg (80-100) L 09/20/18 05:19 HCO3 29.4 mmol/L (21-28) H 09/20/18 05:19 ABG pH 7.18 (7.35-7.45) L* 09/20/18 05:19 ABG Total CO2 40.0 mmol/L (22-28) H 09/20/18 05:19 ABG O2 Saturation 83.7 % (95-98) L 09/20/18 05:19 ABG Base Excess 6.2 mmol/L (-2.0-3.0) H 09/20/18 05:19 ABG Hemoglobin 10.4 g/dL (11.7-17.4) L 09/20/18 05:19 ABG Carboxyhemoglobin 2.5 % (0.5-1.5) H 09/20/18 05:19 POC ABG HHb (Measured) 15.8 % (0.0-5.0) H 09/20/18 05:19 ABG Methemoglobin 0.8 % (0.0-3.0) 09/20/18 05:19 Jose Test Na 09/20/18 05:19 ABG Potassium 4.2 mmol/L (3.6-5.2) 09/18/18 05:05 VBG pH 7.39 (7.32-7.43) 09/10/18 04:06 VBG pCO2 41 mmHg (40-60) 09/10/18 04:06 VBG HCO3 23.7 mmol/L 09/10/18 04:06 VBG Total CO2 26.1 mmol/L (22-28) 09/10/18 04:06 VBG O2 Sat (Calc) 60.5 % (40-65) 09/10/18 04:06 VBG Base Excess -0.2 mmol/L (0.0-2.0) L 09/10/18 04:06 VBG Potassium 3.8 mmol/L (3.6-5.2) 09/10/18 04:06 A-a O2 Difference 544.0 mm/Hg 09/20/18 05:19 Respiratory Index 12.1 09/20/18 05:19 Hgb O2 Saturation 80.9 % (95.0-98.0) L 09/20/18 05:19 Sodium 148.0 mmol/l (132-148) 09/18/18 05:05 Chloride 112.0 mmol/L (98-107) H 09/18/18 05:05 Glucose 159 mg/dl (65-105) H 09/18/18 05:05 Lactate 1.3 mmol/L (0.7-2.1) 09/18/18 05:05 Liter Flow 40.0 09/15/18 10:11 Vent Mode Prvc 09/20/18 05:19 Mechanical Rate 30 09/20/18 05:19 FiO2 100.0 % 09/20/18 05:19 Tidal Volume 300 09/20/18 05:19 PEEP 5 09/20/18 05:19 Crit Value Called To Nereyda rn 09/20/18 05:19 Crit Value Called By Hollie lamp shade sewer 09/20/18 05:19 Crit Value Read Back Y 09/20/18 05:19 Blood Gas Notified Time 548 09/20/18 05:19 Sodium 147 mmol/L (132-148) 09/20/18 06:13 Potassium 5.2 mmol/L (3.6-5.2) 09/20/18 06:13 Chloride 110 mmol/L (98-107) H 09/20/18 06:13 Carbon Dioxide 37 mmol/L (22-30) H 09/20/18 06:13 Anion Gap 5 (10-20) L 09/20/18 06:13 BUN 53 mg/dL (7-17) H 09/20/18 06:13 Creatinine 1.5 mg/dL (0.7-1.2) H 09/20/18 06:13 Est GFR ( Amer) 42 09/20/18 06:13 Est GFR (Non-Af Amer) 35 09/20/18 06:13 POC Glucose (mg/dL) 281 mg/dL (65-110) H 09/20/18 00:12 Random Glucose 236 mg/dL (65-105) H D 09/20/18 06:13 Serum Osmolality 256 mosm/kg (272-300) L 09/10/18 08:37 Lactic Acid 1.1 mmol/L (0.7-2.1) 09/17/18 17:21 Calcium 8.6 mg/dl (8.6-10.4) 09/20/18 06:13 Phosphorus 3.8 mg/dL (2.5-4.5) 09/20/18 06:13 Magnesium 2.8 mg/dL (1.6-2.3) H 09/20/18 06:13 Total Bilirubin 0.2 mg/dL (0.2-1.3) 09/20/18 06:13 AST 90 U/L (14-36) H D 09/20/18 06:13 ALT 66 U/L (9-52) H D 09/20/18 06:13 Alkaline Phosphatase 146 U/L (38-126) H D 09/20/18 06:13 Total Creatine Kinase 27 U/L (30-135) L 09/15/18 10:24 CK-MB (Mass) 3.55 ng/mL (0.0-3.38) H 09/15/18 10:24 Troponin I 0.0230 ng/mL (0.00-0.120) 09/15/18 10:24 C-Reactive Protein 73.30 mg/L (0.0-9.9) H 09/15/18 11:45 NT-Pro-B Natriuret Pep 6630 pg/mL (0-900) H 09/17/18 08:33 Total Protein 5.2 g/dL (6.3-8.3) L 09/20/18 06:13 Albumin 2.7 g/dL (3.5-5.0) L 09/20/18 06:13 Globulin 2.5 gm/dL (2.2-3.9) 09/20/18 06:13 Albumin/Globulin Ratio 1.1 (1.0-2.1) 09/20/18 06:13 Lipase 110 U/L (23-300) 09/10/18 02:27 Procalcitonin 0.08 NG/ML (0.19-0.49) L 09/19/18 10:55 TSH 3rd Generation 1.90 mIU/L (0.46-4.68) 09/10/18 06:40 Prolactin 17.8 ng/mL (3.0-18.9) 09/11/18 11:39 Cortisol AM Sample 23.6 ug/dL (4.46-22.7) H 09/10/18 06:40 Arterial Blood Potassium 4.2 mmol/L (3.6-5.2) 09/18/18 05:05 Venous Blood Potassium 3.8 mmol/L (3.6-5.2) 09/10/18 04:06 Urine Color Yellow (YELLOW) 09/20/18 08:05 Urine Clarity Slight-cloudy (Clear) 09/20/18 08:05 Urine pH 6.0 (5.0-8.0) 09/20/18 08:05 Ur Specific [place] 1.025 (1.003-1.030) 09/20/18 08:05 Urine Protein Negative mg/dL (NEGATIVE) 09/20/18 08:05 Urine Glucose (UA) Negative mg/dL (Normal) 09/20/18 08:05 Urine Ketones Negative mg/dL (NEGATIVE) 09/20/18 08:05 Urine Blood Small (NEGATIVE) 09/20/18 08:05 Urine Nitrate Negative (NEGATIVE) 09/20/18 08:05 Urine Bilirubin Negative (NEGATIVE) 09/20/18 08:05 Urine Urobilinogen 0.2 mg/dL (0.2-1.0) 09/20/18 08:05 Ur Leukocyte Esterase Negative Remy/uL (Negative) 09/20/18 08:05 Urine WBC (Auto) 1 /hpf (0-5) 09/16/18 05:59 Urine RBC (Auto) 14 /hpf (0-3) H 09/20/18 08:05 Ur Squamous Epith Cells 8 /hpf (0-5) H 09/20/18 08:05 Urine Yeast (Budding) Many /hpf (NEGATIVE) H 09/20/18 08:05 Urine Osmolality 427 mosm/kg (300-1000) 09/14/18 09:12 Ur Random Creatinine 46.0 mg/dL 09/20/18 08:05 Ur Random Sodium 44 mmol/L 09/20/18 08:05 Ur Random Urea Nitrogn 597 mg/dL 09/10/18 11:46 Vancomycin Trough 5.4 ug/mL (5.0-10.0) 09/17/18 17:50 Random Vancomycin 15.6 ug/mL 09/20/18 08:05 IgG 869.4 mg/dL (700.0-1600.0) 09/15/18 11:45 IgA 368.2 mg/dL (70.0-400.0) 09/15/18 11:45 IgM 101.6 mg/dL (40.0-230.0) 09/15/18 11:45 IgE 34 kU/L (<ah=892) 09/16/18 06:15 BAUTISTA Screen Negative (Negative) 09/14/18 08:03 Influenza Typ A,B (EIA) Negative for flu a/b (NEGATIVE) 09/11/18 11:30 Blood Type O POSITIVE 09/17/18 20:46 Antibody Screen Negative 09/17/18 20:46 Crossmatch See Detail 09/17/18 20:46 - Hospital Course Hospital Course: As per H&P "This is a 68 year old female with PMH of newly diagnosed HFrEF, bronchiectasis who presents for epigastric abdominal pain for the past 5 days. Pt states that the pain is intermittent and occurs after taking her medications. It lasts a few hours, and goes away on its own. It is not associated with food, does not radiate, and is described as a burning. Denies fever, chill, chest pain, sob, n/v/d, hemotochezia, melena, hemoptysis, falls, dizziness, headache, seizure activity, lightheadedness. Pt has chronic productive cough, for which she takes medications. Endorses 30 lb weight loss of the last [address] with IV contrast done in the ED shows small pneumothorax. Sodium noted to be 119. PMD: none PMH: HFrEF, bronchiectasis PSH: none Meds: Losartan 25 mg PO once daily, Aldactone 12.5 mg PO once daily, Aspirin 81 mg PO once daily, Carvedilol 3.125 mg PO BID, Furosemide 40 mg PO once daily, Levaquin 500 mg PO once daily for 10 days, Acapella valve for chest PT, Breo ellipta 1 pump daily, Duoneb q 6 hours, Singulair 10 mg PO QHS, Mucinex 600 mg PO BID, Medrol dose pack Allx: see EMR FHx: denies SHx: social etoh (rarely), denies smoking, denies drugs Denies papsmear, mammogram recently. Never had a colonoscopy." Patient monitored on telemetry. Pulmonary consulted on case. Patient noted acute respiratory distress and tachycardia on 09/15/18 transferred to the intensive care unit. Patient did not improve. Discussed with family, patient is DNR and requested for withdrawal of care. Family updated throughout the course of hospitalization. Questions answered at bedside. Review of hospitalization course and workup noted below. Discharge Diagnoses: 1. DNR * Palliative care on consult * Family does not want patient to suffer. discussed DNR as well as withdrawal of care. * Patient terminally extubated on 09/20/18 2. Acute Respiratory Failure Pulmonary Fibrosis Cystic Bronchiectasis, chronic Healthcare associated pneumonia Fibrosis Pneumothorax Pulmonary Embolus Assessment/Plan * Pulmonology, Dr. Bashir, consulted help appreciated * CT chest (08/22/18): areas of dense consolidation/atelectasis in the left lung base; progressed 03/01/16. Extensive cystic changes seen throughout the left lung and less so the right upper lobe possibly representing cystic bronchiectasis. Left sided effusion possibly with some loculated components. mucous plugging changes or compressive effects on the proximal branches of the left upper and lower lobe of bronchi. mild fatty hepatic infiltration. gastric wall thickening in part of incomplete distension. markedly distended urinary bladder, rule out urinary retention * ESRL 113, CRP: 193.80, BAUTISTA screen negative * Patient had refused PA chest x-ray 09/15. Patient refused CT chest repeat 09/16. Rapid response called September 15, 2018 for acute respiratory distress, tachycardia as well as patient did not look well. Patient noted accessory mus chandler use. Transferred to the ICU. Intubated. On Ventilator. * Family discussion on 09/19/18 and 09/20/18-->code status updated to DNR and family elected for terminal extubation in light of poor prognosis and noting they did not want the patient to suffer * Bronchoscopy (bedside)with Dr. Bashir 09/16/18: F/U BAL results from the Right Medial Bronchus * Chest X Ray 09/16/18: diffuse pathcy bilateral infiltrates, left sided pneumothorax and small left sided effusion (hydropneumothorax) less well seen on this exam as compared to high resolution CT Scan and presumably has reduced in size. * Chest X Ray 09/17/18: It appears that there is a Right Upper Lobe Pneumothorax that has developed since 09/16/18. Right Chest Tube placed 09/17/18 as a result * Chest X Ray 09/18/18: shows worsening left pneumothorax and persistent right pneumonthorax * Sputum Fungus Culture 09/15/18 is negative * Mycobacterium Culture Preliminary 09/15/18: NO AFB seen * F/U Sputum Culture 09/16/18 and 09/18/18 * On Vancomycin and Zosyn. * Blood Culture 09/10/18 finalized at 5 days as negative. * Blood Culture 09/16/18: negative to date * F/U pending Sputum Cultures mentioned above. * Repeat Catheterized Urine Culture 09/16/18: NO growth * Procalcitonin: 1.32 and normalized on repeat * S/P Left Mid Axillary Chest Tube Placement 09/16/18 * S/P Right Chest Tube Placement 09/17/18 * Patient was placed on therapeutic lovenox for treatment of PE however had an H/H drop required blood transfusion noted on 09/17/18. * Recent admission labs (08/22-09/03) * ANCA screen is negative * Proteinase 3 <1.0 * myeloperoxidase <1.0 * b DGlucan negative * indeterminate quantiferon * Aspergillus flavus negative * Aspergillus fumigatus negative * Aspergillus niger negative * HIV negative * influenza negative * Hepatitis negative * Rheumatoid factor IgM elevated at 80 * Blood culture (08/22/18): no growth after 5 days X2 * Myobacterial culture (08/23/18): negative for AFB. prelim * Myobacterial culture (08/25/18): negative for AFB. prelim * Myobacterial culture (08/28/18): negative for AFB. prelim * Mycobacterium complex PCR negative * Hisplasmosis AB negative, MARY level normal * Solumedrol 40mg IV Q12H * On ventilator: management per ICU * Sedated, Fenantyl IV,Cisatorinum * Patient is high risk given lung and cardiac status; poor prognosis 3. Hyponatremia (resolved) * Nephro Consulted: Dr. Lindsay - king appreciated * management per nephrology team 4. Abdominal pain, resolved 5. Heart Failure with Reduced Ejection Fraction, chronic * Echocardiogram (08/27/18) left ventricular systolic function is severely impaired. ejection fraction is 25-30%. atrial septum aneurysmal. possible asd? no aortic regurgitation is present. mitral regurgitation is mild to moderate. mild tricuspid regurgitation. mild pulmonary hypertension. * Cardiac cath showed nonischemic cardiomyopathy. Dr. Pedraza, cardiology, evaluated the pt on last admission and recommended medical HFrEF 6. Leukocytosis * Influenza negative * Zosyn 3.375g IVPB Q6H (active since 09/11/18) * Vancomycin 1 gram IVPB Q24h (active since 09/11/18) * Solumedrol 40mg IVPB Q8H * On Vancomycin and Zosyn. * Blood Culture 09/10/18 finalized at 5 days as negative. * Blood Culture 09/16/18: negative to date * F/U pending Sputum Cultures mentioned above. * Repeat Catheterized Urine Culture 09/16/18: NO growth * Procalcitonin: 1.32 and normalized on repeat 7. Cachexia 8. PPx * DVT ppx: SCDs * GI: Protonix 40 mg IV Q12H and Lactobacillus 2x/day * Diet: PulmCare at 25 ml/hr via oral gastric tube * Skin: AloVesta for 1 cm Circular Stage II Right Buttock Ulcer and repositioning of patient Q2H * Aspiration precautions due to increased mucus production * On therapeutic lovenox for PE seen on 09/15/18 CT; patient had refused dvt ppx heparin during hospitalization; therapuetic lovenox d/c following H/H on 09/17/18 requiring blood transfusion * Full code changed to DNR 09/19/18 * Palliative care on board * Intubated 09/15/18 * Poor prognosis-->discussed with patient's son Edd at bedside who speak to his brothers as well regarding her need of ventilator, the poor quality of her lungs and heart, and the possibility that she may on 09/19/18 * patient is DNR. Poor Prognosis. I spoke with son, Pavel Mistry, on 09/20/18 on behalf of his brothers requesting for terminal extubation and comfort measures. Understands given the prognosis, both quality of lungs and heart that she will unlikely survive and notes she does not want her to suffer. No longer wants vent, feedings, blood products, iv abx etc. Agrees with comfort measures, pain management. Withdrawal of care form completed with son and nurse witnessing at bedside. Form is in the chart. Son, Pavel Mistry present at bedside. Patient is DNR. Family requested for terminally extubation. Patient pronounced at 13:25. EDRS completed. . This is a summary of patient's hospitalization. Please see EMR for full detail of record. - Date & Time of H&P Date of H&P: 09/10/18 Time of H&P: 05:19 Discharge Plan - Follow Up Plan Condition: Disposition: WITH WITHOUT AUTOPSY
[2018-09-20 15:15] VITALS: BP 107/67; RESP 0; O2SAT 91
--- NOTE | 2018-09-20 15:20 | CP.PCM.PN ---
Subjective - Date & Time of Evaluation Date of Evaluation: 09/20/18 Time of Evaluation: 15:16 - Subjective Subjective: Pulm Progress Note for Dr. Bashir's service S/E at bedside. For terminal extubation today. Patient after extubation. Objective - Vital Signs/Intake and Output Vital Signs (last 24 hours): Temp Pulse Resp BP Pulse Ox 99.1 F 123 H 0 L 107/67 91 L 09/20/18 12:00 09/20/18 13:00 09/20/18 14:00 09/20/18 13:00 09/20/18 13:00 Intake and Output: 09/20/18 09/20/18 06:59 18:59 Intake Total 1818.4 740.6 Output Total 520 Balance 1298.4 740.6 - Medications Medications: Current Medications Albuterol/Ipratropium (Duoneb 3 Mg/0.5 Mg (3 Ml) Ud) 3 ml INH RQ4 TANA Last Admin: 09/20/18 12:15 Dose: Not Given Heparin Sodium (Porcine) (Heparin) 5,000 units SC Q8 TANA Last Admin: 09/20/18 05:57 Dose: 5,000 units Piperacillin Sod/Tazobactam (Sod 3.375 gm/ Sodium Chloride) 100 mls @ 200 mls/hr IVPB Q6H TANA; Protocol Last Admin: 09/20/18 11:29 Dose: 200 mls/hr Vancomycin HCl 1 gm/ Sodium (Chloride) 250 mls @ 166.7 mls/hr IVPB Q24H TANA; Protocol Last Admin: 09/19/18 18:13 Dose: 166.7 mls/hr Propofol (Diprivan) 1,000 mg in 100 mls @ 2.43 mls/hr IV .Q24H PRN; Protocol PRN Reason: TITRATE PER MD ORDER Last Admin: 09/20/18 10:58 Dose: 40 mcg/kg/min, 9.72 mls/hr Norepinephrine Bitartrate 8 mg (/ Dextrose) 250 mls @ 7.5 mls/hr IV .Q24H PRN; Protocol PRN Reason: TITRATE PER MD ORDER Cisatracurium Besylate 100 mg/ (Dextrose) 250 mls @ 17.96 mls/hr IV .[id number] PRN; Protocol PRN Reason: Agitation Last Titration: 09/20/18 11:06 Dose: 0 mcg/kg/min, 0 mls/hr Esmolol HCl (Brevibloc) 250 mls @ 5.987 mls/hr IV .Q24H PRN; Protocol PRN Reason: PER TITRATION PROTOCOL Last Admin: 09/19/18 11:44 Dose: 5.987 mls/hr Fentanyl Citrate 2,500 mcg/ (Sodium Chloride) 250 mls @ 19.32 mls/hr IV .[id number] TANA; Protocol Last Admin: 09/20/18 11:04 Dose: Not Given Lactobacillus Acidophilus (Lactobacillus) 1 cap PO BID [facility] Last Admin: 09/20/18 10:12 Dose: 1 cap Methylprednisolone (Solu-Medrol) 40 mg IVP Q8H TANA Last Admin: 09/20/18 10:15 Dose: 40 mg Montelukast Sodium (Singulair) 10 mg PO HS [facility] Last Admin: 09/19/18 22:05 Dose: 10 mg Pantoprazole Sodium (Protonix Inj) 40 mg IVP Q12H TANA Last Admin: 09/20/18 10:00 Dose: 40 mg - Labs Labs: 09/20/18 06:13 09/20/18 06:13 PT 13.3 SECONDS (9.7-12.2) H 09/15/18 12:23 INR 1.2 09/15/18 12:23 APTT 27 SECONDS (21-34) 09/20/18 06:13 - Constitutional Appears: Chronically Ill - Head Exam Head Exam: NORMAL INSPECTION - ENT Exam ENT Exam: Mucous Membranes Dry - Respiratory Exam Additional comments: intubated sedated - Cardiovascular Exam Cardiovascular Exam: Tachycardia, +S1, +S2 - GI/Abdominal Exam GI & Abdominal Exam: Soft, Normal Bowel Sounds. absent: Rigid, Tenderness - Extremities Exam Extremities Exam: Normal Inspection. absent: Pedal Edema - Neurological Exam Neurological Exam: absent: Alert, Awake - Skin Skin Exam: Dry, Intact, Normal Color Assessment and Plan - Assessment and Plan (Free Text) Assessment: Hypoxic respiratory failure ABG consistent with hypoxic respiratory failure Intubated/Sedated; further management as per ICU team Fentanyl drip Cystic Bronchiectasis Continue current antibiotic therapy of Vanc/Zosyn Continue duoneb, Breo, singular, Mucinex, and IV steriods Nimbex Continue high flow oxygen. Continue Lasix 20 mg daily s/p bronchoscopy on 09/16- pending biospy results Etiology remains unknown (IPF concern vs immunodeficiency) Acute pneumothorax CXR 09/12: pneumothorax improved Repeat imaging on 09-15 shows new pneumothorax on left side, CT chest pending, CT surgery consulted for worsening pnuemothorax Repeat CXR on 09-19: persistent right-sided and left-sided small pneumothorax Intubated/Sedated see above Chest tube placed on left side CT findings on 09-15 showed moderate pneumo with pulmonary emoblism Hypotension on levophed drip Pulmonary Emoblism Lovenox 40mg sc q 12 Patient after terminal extubation PGY-1 Cruz Alatorre d/w Dr. Bashir
--- NOTE | 2018-09-20 20:37 | CARD ---
APPROVED REPORT Date of service: 09/19/2018 EKG Measurement Heart [id number] [id number] <Conclusion> Sinus tachycardia Low voltage QRS Borderline ECG
== END 2018-09-20 13:23 | DRG 130 ==
LOC: C.ER 00:55 → C.5S 05:11 → C.9I 09-15 10:46
PROVIDERS: ADMIT Internal Medicine; ATTEND Internal Medicine
PROC: 5A1955Z Respiratory Ventilation, Greater than 96 Consecutive Hours (ICD-10-PCS; principal; 2018-09-15)
PROC: 0BH18EZ Insertion of Endotracheal Airway into Trachea, Via Natural or Artificial Opening Endoscopic (ICD-10-PCS; 2018-09-15)
PROC: 0B9D8ZX Drainage of Right Middle Lung Lobe, Via Natural or Artificial Opening Endoscopic, Diagnostic (ICD-10-PCS; 2018-09-16)
PROC: 03HB33Z Insertion of Infusion Device into Right Radial Artery, Percutaneous Approach (ICD-10-PCS; 2018-09-16)
PROC: 05HN33Z Insertion of Infusion Device into Left Internal Jugular Vein, Percutaneous Approach (ICD-10-PCS; 2018-09-16)
PROC: 0W9930Z Drainage of Right Pleural Cavity with Drainage Device, Percutaneous Approach (ICD-10-PCS; 2018-09-17)
DX: J93.82 Other air leak (principal); I26.99 Other pulmonary embolism without acute cor pulmonale; J18.9 Pneumonia, unspecified organism; J94.8 Other specified pleural conditions; R64 Cachexia; I42.9 Cardiomyopathy, unspecified; I50.42 Chronic combined systolic (congestive) and diastolic (congestive) heart failure; J47.0 Bronchiectasis with acute lower respiratory infection; J96.01 Acute respiratory failure with hypoxia; I27.20 Pulmonary hypertension, unspecified; E86.1 Hypovolemia; E87.1 Hypo-osmolality and hyponatremia; N39.0 Urinary tract infection, site not specified; B95.8 Unspecified staphylococcus as the cause of diseases classified elsewhere; J43.9 Emphysema, unspecified; J45.909 Unspecified asthma, uncomplicated; J47.1 Bronchiectasis with (acute) exacerbation; J84.10 Pulmonary fibrosis, unspecified; K52.9 Noninfective gastroenteritis and colitis, unspecified; T38.0X5A Adverse effect of glucocorticoids and synthetic analogues, initial encounter; Y95 Nosocomial condition; Z51.5 Encounter for palliative care; Z66 Do not resuscitate; Z79.899 Other long term (current) drug therapy; Z87.01 Personal history of pneumonia (recurrent); Z91.19 Patient's noncompliance with other medical treatment and regimen; Z82.49 Family history of ischemic heart disease and other diseases of the circulatory system; Z83.3 Family history of diabetes mellitus